=== PATIENT | female | born 1975 | race Caucasian/White ===

== ENCOUNTER 2021-01-27 11:19 | Outpatient (REF) | payer OTHER, SELFPAY ==
[2021-01-27 12:07] LABS: Influenza A PCR NEGATIVE (Negative); Influenza B PCR NEGATIVE (Negative); Resp Syncy Virus RNA Qual PCR NEGATIVE (Negative); SARS COV2 PCR INHOUSE NEGATIVE (Negative)
== END 2021-01-27 11:20 | disposition home or self-care (01) ==
LOC: HO.LNP 11:19
PROVIDERS: Visit Provider Physician Assistant
DX: Z20.822 Contact with and (suspected) exposure to COVID-19 (principal); B34.9 Viral infection, unspecified
CPT/HCPCS: 0241U

== ENCOUNTER 2021-07-06 20:14 | Emergency (ER) | payer OTHER, SELFPAY ==
--- NOTE | ~2021-07-06 | XR_ITS ---
EXAMINATION: XR CHEST CLINICAL INFORMATION: Productive cough. COMPARISON: Most recent chest radiograph dated 08/08/2018. TECHNIQUE: Frontal view of the chest was obtained. FINDINGS: The lungs are clear. The cardiomediastinal silhouette is normal in size. There is no pleural effusion or pneumothorax. No acute osseous abnormality. XR/XR chest 1V IMPRESSION: No acute cardiopulmonary findings.
--- NOTE | ~2021-07-06 | CT_ITS ---
EXAMINATION: CT HEAD WITHOUT CONTRAST CLINICAL INFORMATION: Altered mental status. COMPARISON: Most recent CT head dated 07/25/2017. TECHNIQUE: Contiguous axial imaging was performed from the skull base to vertex without intravenous administration of contrast. This CT examination was performed using dose optimization techniques as appropriate, variously including the following: *Automated exposure control *Adjustment of mA and/or kV according to patient size (this includes techniques or standardized protocols for targeted exams where dose is matched to indication/reason for exam; i.e. extremities or head) *Use of iterative reconstruction technique DLP: 1127 mGy-cm FINDINGS: There is no evidence of acute intracranial hemorrhage or territorial infarction. No abnormal mass effect or midline shift is seen. Green to white matter differentiation is well preserved. No extra-axial fluid collections are identified. The ventricles are normal in size. There is no abnormal attenuation within the brain parenchyma. The osseous structures and soft tissues are normal. The mastoid air cells and visualized portions of the paranasal sinuses are well aerated. CT/CT head/brain wo con IMPRESSION: No acute intracranial hemorrhage or mass effect.
[2021-07-06 20:21] VITALS: BP 117/45; PULSE 72; RESP 18; TEMP 36.9; O2SAT 93
[2021-07-06 20:30] VITALS: BP 104/55; BP 142/80; PULSE 106; PULSE 67; RESP 14; TEMP 36.9; O2SAT 94; BMI 27.3
--- NOTE | 2021-07-06 21:38 | ED.GENADULT ---
HPI - General Adult General Chief complaint: Psychiatric Symptoms <BLAIR Carmichael Last Filed: 07/07/21 04:07> Stated complaint: confused <BLAIR Carmichael Last Filed: 07/07/21 04:07> Time Seen by Provider: 07/06/21 21:38 <BLAIR Carmichael Last Filed: 07/07/21 04:07> Source: patient and EMS <BLAIR Carmichael Last Filed: 07/07/21 04:07> Mode of arrival: EMS <BLAIR Carmichael Last Filed: 07/07/21 04:07> Limitations: other (Patient poor historian, appears intoxicated or under the influence of drugs) <BLAIR Carmichael Last Filed: 07/07/21 04:07> History of Present Illness HPI narrative: This is a 46-year-old female with an unknown medical history presenting to the emergency department via ambulance for confusion, altered mental status. 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 Patient's story is completely different patient tells me that she is having nausea, vomiting, dizziness, headache and a cough x4 days worsening. She tells me that she has been drinking today she had 5 large glasses of wine at her job. She tells me she did not use any drugs. He tells me that she called 911 at her brother's house. Patient evidently confused or intoxicated. No evidence signs of trauma. Denies SI and HI. Denies visual auditory and tactile hallucinations. She denies chest pain, shortness of breath, abdominal pain, fevers, chills, diarrhea <BLAIR Carmichael Last Filed: 07/07/21 04:07> Onset (ago): day(s) (4) <BLAIR Carmichael Last Filed: 07/07/21 04:07> Relieving factors: none <BLAIR Carmichael Last Filed: 07/07/21 04:07> Exacerbating factors: none <BLAIR Carmichael Last Filed: 07/07/21 04:07> Related Data Home medications: Previous Rx's Medication Instructions Recorded nitrofurantoin 100 mg PO Q12H 5 Days #10 cap 07/07/21 monohydrate/macrocrystals 100 mg capsule (Macrobid) <BLAIR Carmichael Last Filed: 07/07/21 04:07> Allergies/adverse reactions: Allergies Allergy/AdvReac Type Severity Reaction Status Date / Time codeine [CODEINE] Allergy Severe ANAPHLAXIS Verified 01/27/21 10:00 Penicillins Allergy Severe HIVES Verified 01/27/21 10:00 penicillin V Allergy Unknown hives Verified 01/27/21 10:00 <BLAIR Carmichael Last Filed: 07/07/21 04:07> Review of Systems Review of Systems: Constitutional : No Weight loss, No Fever, No Chills, No Fatigue, No Malaise ENT/Mouth : No sore throat, No Rhinorrhea Eyes: No Eye Pain, No Swelling, No Redness Cardiovascular : No Chest Pain, No SOB, No Dyspnea on Exertion, No Orthopnea, No Edema, No Palpitations Respiratory : + Cough, No Sputum, No Wheezing Gastrointestinal : + Nausea, + Vomiting, No Diarrhea, No Constipation, No abdominal Pain, No Hematochezia, No Melena Genitourinary : No Dysuria, No Urinary Frequency, No Hematuria, Musculoskeletal : No joint pain, No Myalgias, No Joint Swelling Skin : No Skin Lesions, No rash Neuro : No Weakness, No Numbness, + Dizziness, + Headache Psych : No Anxiety/Panic, No Depression All other systems reviewed and are negative <BLAIR Carmichael - Last Filed: 07/07/21 04:07> Yes all other systems are reviewed and are negative <BLAIR Carmichael Last Filed: 07/07/21 04:07> FOR[facility]LY [facility] Past Medical History Attestation statement: The following information was validated with the patient. <BLAIR Carmichael Last Filed: 07/07/21 04:07> Source: old records reviewed and nursing notes reviewed <BLAIR Carmichael Last Filed: 07/07/21 04:07> Social History Social History: Social History Patient Tobacco Use Status: Current everyday Tobacco user Advance Directives: No Advance Directives Information Provided: No <BLAIR Carmichael Last Filed: 07/07/21 04:07> Physical Exam ED Vital Signs: Vital Signs - 24 hr 07/06/21 20:21 07/06/21 20:30 07/06/21 23:45 Temperature 98.5 F 98.5 F 100.6 F H Pulse Rate 72 67 66 Respiratory Rate 18 14 25 H Blood Pressure 117/45 L 104/55 L 112/44 L Pulse Oximetry 93 94 93 07/07/21 02:00 07/07/21 08:29 Temperature 99.9 F 99.1 F Pulse Rate 90 67 Respiratory Rate 20 22 H Blood Pressure 100/46 L 108/55 L Pulse Oximetry 95 92 BMI result Body Mass Index 27.3 Patient's vital signs stable <BLAIR Carmichael Last Filed: 07/07/21 04:07> Appearance: Alert.? Oriented to person and place not time or situation No acute distress.? Patient drowsy, dozing off during my examination Head: Normocephalic, atraumatic, no step-offs or deformities Eyes: Pupils equal, round and reactive to light.? Pinpoint pupils ENT: Pharynx normal.? Neck: Normal inspection.? Neck supple.? CVS: Normal heart rate and rhythm.? Pulses normal.? Respiratory: No respiratory distress.? Breath sounds normal.? Abdomen: Soft and nontender.? Skin: Skin warm and dry.? Normal skin color.? Normal skin turgor.? Extremities: No lower extremity edema.? No calf ttp. 5/5 strength to bilateral upper and lower extremities Neuro: Oriented to person and place not time or situation. No motor deficit.? No sensory deficit. CN 2-12 intact <BLAIR Carmichael Last Filed: 07/07/21 04:07> Course Reevaluation(s) Reevaluation #1: Patient noted to have a slight leukocytosis likely reactive from nausea and vomiting today. Patient is noted to have a slight normocytic anemia. Slightly lower than her baseline however not complaining of rectal bleeding, vomiting blood. No acute electrolyte abnormalities requiring intervention. Patient negative for flu and COVID Chest x-ray with no acute findings. Pending urine toxicology, UA and CT of the head and brain. <BLAIR Carmichael - Last Filed: 07/07/21 04:07> Time: 23:09 <BLAIR Carmichael - Last Filed: 07/07/21 04:07> Reevaluation #2: Urine positive for infection. Started patient on Macrobid. CT of the head and brain with no acute findings. Urine toxicology positive for fentanyl, cocaine and marijuana. Although patient was febrile and hypotensive I suspected secondary to UTI not sepsis. Patient's initial altered mental status likely secondary to polysubstance abuse. <BLAIR Carmichael - Last Filed: 07/07/21 04:07> Time: 04:00 <BLAIR Carmichael - Last Filed: 07/07/21 04:07> Reevaluation #3: At this time patient resting. Vital signs stable, patient afebrile. I will place patient in physician observation to allow more time to be evaluated by the care team for substance use disorder evaluation will also have her follow up with and for anxiety/ depression. Will continue to monitor. Sign-out given to . <BLAIR Carmichael - Last Filed: 07/07/21 04:07> Time: 04:03 <BLAIR Carmichael - Last Filed: 07/07/21 04:07> Medical Decision Making [facility] Narrative Medical decision making narrative: [id number] 46-year-old female presents for evaluation of altered mental status noted by coworkers who called 911. Patient reports nausea, vomiting, headache, dizziness, cough. Physical examination significant for female that is drowsy, dozing off during my examination with pinpoint pupils bilaterally equal and reactive. Patient able to follow commands however she is only alert to person and place not time or situation. No focal motor or sensory deficits. No focal neuro deficits. Based off patient history and physical examination likely ethanol abuse, and substance abuse. Unlikely ICH, posterior infarct. Unlikely pneumonia. Plan at this time labs, imaging, COVID, substance use disorder evaluation <BLAIR Carmichael Last Filed: 07/07/21 04:07> Medical Records Medical records reviewed: Yes I reviewed the patient's medical records. <BLAIR Carmichael - Last Filed: 07/07/21 04:07> Lab Data Lab results reviewed: Yes I reviewed the patient's lab results. <BLAIR Carmichael - Last Filed: 07/07/21 04:07> Result diagrams: : 07/06/21 21:59 07/06/21 21:59 <BLAIR Carmichael - Last Filed: 07/07/21 04:07> Labs: Lab Results 07/06/21 07/06/21 07/06/21 Range/Units 21:59 21:59 21:59 WBC 15.2 H (4.8-10.8) X10*3/uL RBC 4.05 L (4.20-5.50) X10*6/uL Hgb 9.6 L (12.0-16.0) g/dl Hct 33.0 L (37.0-47.0) % MCV 81.5 (80.0-98.0) fL MCH 23.7 L (27.0-33.0) pg MCHC 29.1 L (31.0-35.0) g/dl RDW 15.8 (11.0-16.0) % Plt Count 236 (160-400) X10*3/uL MPV 11.0 (9.4-12.3) fL Immature Gran % (Auto) 0.5 H (0.0-0.4) % Neut % (Auto) 86.4 H (45-73) % Lymph % (Auto) 6.5 L (20-40) % [place] % (Auto) 6.4 (2-11) % Eos % (Auto) 0.1 (0-4) % Baso % (Auto) 0.1 (0-2) % Lymph # (Auto) 1.0 L (1.2-4.9) X10*3/uL [place] # (Auto) 1.0 (0.1-1.2) X10*3/uL Eos # (Auto) 0.0 (0.0-0.4) X10*3/uL Baso # (Auto) 0.0 (0.0-0.2) X10*3/uL Abs Immat Gran (auto) 0.08 H (0.00-0.03) X10*3/uL Absolute Neuts (auto) 13.2 H (2.0-8.3) x10*3/uL Absolute Nucleated RBC 0.000 (0.0-0.012) X10*3/uL Nucleated RBC % (auto) 0.0 (0.0-0.2) /100WBC Sodium 133 L (135-145) mmol/L Potassium 4.9 (3.3-5.1) mmol/L Chloride 101 (96-108) mmol/L Carbon Dioxide 23 (22-29) mmol/L Anion Gap 14 (12-20) BUN 16 (9-16) mg/dL Creatinine 1.23 (0.5-1.4) mg/dL Estim Creat Clear Calc 61.3 Estimated GFR 47 Random Glucose 98 (60-115) mg/dL Calcium 9.0 (8.4-10.2) mg/dL Magnesium 2.2 (1.6-2.6) mg/dL Total Bilirubin 0.4 (0.0-1.0) mg/dL AST 28 (5-31) U/L ALT 19 (0-31) U/L Alkaline Phosphatase 112 (39-117) U/L Total Protein 7.6 (6.5-8.0) g/dL Albumin 4.0 (3.5-5.0) g/dL Urine Color Urine Appearance Urine pH (5.0-8.0) Ur Specific [place] (1.005-1.025) Urine Protein (NEG-TRACE) MG/DL Urine Glucose (UA) (NEG) MG/DL Urine Ketones (NEG) MG/DL Urine Blood (NEG) Urine Nitrite (NEG) Ur Leukocyte Esterase (NEG) Urine RBC (0) /HPF Urine WBC (0-4) /HPF Ur Squamous Epith Cells /LPF Urine Bacteria /LPF Salicylates < 5.0 L (15-30) mg/dL Urine Fentanyl Screen (Not Detect) Acetaminophen < 1 (<30) mcg/mL Ur Barbiturates Screen (Not Detect) Ur Phencyclidine Scrn (Not Detect) Ur Amphetamines Screen (Not Detect) U Benzodiazepines Scrn (Not Detect) Urine Cocaine Screen (Not Detect) U Marijuana (THC) Screen (Not Detect) Ethyl Alcohol mg/dL COVID-19 (CALVIN) (Negative) COVID-19 Clin Com Influenza Type A (CARO) Negative (Negative) Influenza Type B (CARO) Negative (Negative) Influenza A & B Note See Note 07/06/21 07/06/21 07/07/21 Range/Units 21:59 21:59 02:42 WBC (4.8-10.8) X10*3/uL RBC (4.20-5.50) X10*6/uL Hgb (12.0-16.0) g/dl Hct (37.0-47.0) % MCV (80.0-98.0) fL MCH (27.0-33.0) pg MCHC (31.0-35.0) g/dl RDW (11.0-16.0) % Plt Count (160-400) X10*3/uL MPV (9.4-12.3) fL Immature Gran % (Auto) (0.0-0.4) % Neut % (Auto) (45-73) % Lymph % (Auto) (20-40) % [place] % (Auto) (2-11) % Eos % (Auto) (0-4) % Baso % (Auto) (0-2) % Lymph # (Auto) (1.2-4.9) X10*3/uL [place] # (Auto) (0.1-1.2) X10*3/uL Eos # (Auto) (0.0-0.4) X10*3/uL Baso # (Auto) (0.0-0.2) X10*3/uL Abs Immat Gran (auto) (0.00-0.03) X10*3/uL Absolute Neuts (auto) (2.0-8.3) x10*3/uL Absolute Nucleated RBC (0.0-0.012) X10*3/uL Nucleated RBC % (auto) (0.0-0.2) /100WBC Sodium (135-145) mmol/L Potassium (3.3-5.1) mmol/L Chloride (96-108) mmol/L Carbon Dioxide (22-29) mmol/L Anion Gap (12-20) BUN (9-16) mg/dL Creatinine (0.5-1.4) mg/dL Estim Creat Clear Calc Estimated GFR Random Glucose (60-115) mg/dL Calcium (8.4-10.2) mg/dL Magnesium (1.6-2.6) mg/dL Total Bilirubin (0.0-1.0) mg/dL AST (5-31) U/L ALT (0-31) U/L Alkaline Phosphatase (39-117) U/L Total Protein (6.5-8.0) g/dL Albumin (3.5-5.0) g/dL Urine Color YELLOW Urine Appearance HAZY Urine pH 5.5 (5.0-8.0) Ur Specific [place] >= 1.030 H (1.005-1.025) Urine Protein TRACE (NEG-TRACE) MG/DL Urine Glucose (UA) NEG (NEG) MG/DL Urine Ketones 15 (NEG) MG/DL Urine Blood 1+ H (NEG) Urine Nitrite POS H (NEG) Ur Leukocyte Esterase 1+ H (NEG) Urine RBC 0 (0) /HPF Urine WBC 50-75 H (0-4) /HPF Ur Squamous Epith Cells 1+ /LPF Urine Bacteria 4+ /LPF Salicylates (15-30) mg/dL Urine Fentanyl Screen (Not Detect) Acetaminophen (<30) mcg/mL Ur Barbiturates Screen (Not Detect) Ur Phencyclidine Scrn (Not Detect) Ur Amphetamines Screen (Not Detect) U Benzodiazepines Scrn (Not Detect) Urine Cocaine Screen (Not Detect) U Marijuana (THC) Screen (Not Detect) Ethyl Alcohol < 10 mg/dL COVID-19 (CALVIN) Negative (Negative) COVID-19 Clin Com See Note Influenza Type A (CARO) (Negative) Influenza Type B (CARO) (Negative) Influenza A & B Note 07/07/21 Range/Units 02:42 WBC (4.8-10.8) X10*3/uL RBC (4.20-5.50) X10*6/uL Hgb (12.0-16.0) g/dl Hct (37.0-47.0) % MCV (80.0-98.0) fL MCH (27.0-33.0) pg MCHC (31.0-35.0) g/dl RDW (11.0-16.0) % Plt Count (160-400) X10*3/uL MPV (9.4-12.3) fL Immature Gran % (Auto) (0.0-0.4) % Neut % (Auto) (45-73) % Lymph % (Auto) (20-40) % [place] % (Auto) (2-11) % Eos % (Auto) (0-4) % Baso % (Auto) (0-2) % Lymph # (Auto) (1.2-4.9) X10*3/uL [place] # (Auto) (0.1-1.2) X10*3/uL Eos # (Auto) (0.0-0.4) X10*3/uL Baso # (Auto) (0.0-0.2) X10*3/uL Abs Immat Gran (auto) (0.00-0.03) X10*3/uL Absolute Neuts (auto) (2.0-8.3) x10*3/uL Absolute Nucleated RBC (0.0-0.012) X10*3/uL Nucleated RBC % (auto) (0.0-0.2) /100WBC Sodium (135-145) mmol/L Potassium (3.3-5.1) mmol/L Chloride (96-108) mmol/L Carbon Dioxide (22-29) mmol/L Anion Gap (12-20) BUN (9-16) mg/dL Creatinine (0.5-1.4) mg/dL Estim Creat Clear Calc Estimated GFR Random Glucose (60-115) mg/dL Calcium (8.4-10.2) mg/dL Magnesium (1.6-2.6) mg/dL Total Bilirubin (0.0-1.0) mg/dL AST (5-31) U/L ALT (0-31) U/L Alkaline Phosphatase (39-117) U/L Total Protein (6.5-8.0) g/dL Albumin (3.5-5.0) g/dL Urine Color Urine Appearance Urine pH (5.0-8.0) Ur Specific [place] (1.005-1.025) Urine Protein (NEG-TRACE) MG/DL Urine Glucose (UA) (NEG) MG/DL Urine Ketones (NEG) MG/DL Urine Blood (NEG) Urine Nitrite (NEG) Ur Leukocyte Esterase (NEG) Urine RBC (0) /HPF Urine WBC (0-4) /HPF Ur Squamous Epith Cells /LPF Urine Bacteria /LPF Salicylates (15-30) mg/dL Urine Fentanyl Screen POSITIVE H (Not Detect) Acetaminophen (<30) mcg/mL Ur Barbiturates Screen Not Detected (Not Detect) Ur Phencyclidine Scrn Not Detected (Not Detect) Ur Amphetamines Screen Not Detected (Not Detect) U Benzodiazepines Scrn Not Detected (Not Detect) Urine Cocaine Screen POSITIVE H (Not Detect) U Marijuana (THC) Screen POSITIVE H (Not Detect) Ethyl Alcohol mg/dL COVID-19 (CALVIN) (Negative) COVID-19 Clin Com Influenza Type A (CARO) (Negative) Influenza Type B (CARO) (Negative) Influenza A & B Note <BLAIR Carmichael Last Filed: 07/07/21 04:07> Critical Care Time Critical Care Time Critical Care Time: No <BLAIR Carmichael Last Filed: 07/07/21 04:07> Discharge Plan Discharge Clinical Impression: UTI (urinary tract infection), Nausea & vomiting, Dizziness, Polysubstance abuse <BLAIR Carmichael Last Filed: 07/07/21 04:07> Patient Disposition: Home, Self-Care <BLAIR Carmichael Last Filed: 07/07/21 04:07> Instructions: Urinary Tract Infection in Women (ED), Acute Nausea and Vomiting (ED), Dizziness (ED) <BLAIR Carmichael Last Filed: 07/07/21 04:07> Additional Instructions: Take your medications as prescribed. If you were prescribed antibiotics today, it is important that you take your medication to their entirety, do not skip any doses, do not finish them early. Follow-up with your primary care provider this week. Return to the emergency department with new or worsening symptoms. Such as fevers, chills, chest pain, shortness of breath, nausea, vomiting, dizziness, headache, vision changes, lethargy In case of emergency call 911 your prescriptions were sent to [facility] on [facility] <BLAIR Carmichael Last Filed: 07/07/21 04:07> Prescriptions: New nitrofurantoin monohyd/m-cryst [Macrobid] 100 mg capsule 100 mg PO Q12H 5 Days Qty: 10 0RF Rx Instructions: must administer with a meal/food <BLAIR Carmichael - Last Filed: 07/07/21 04:07> Referrals: [facility]Provider Group[facility] [Primary Care Provider] - 2 days <BLAIR Carmichael - Last Filed: 07/07/21 04:07>
[2021-07-06 22:06] LABS: MANUAL DIFF FLAG NO
[2021-07-06 22:15] LABS: Basophils Percent Auto 0.1 % (0-2); Eosinophils Percent Auto 0.1 % (0-4); Hemoglobin 9.6 g/dl (12.0-16.0); Imm Gran Abs Auto 0.08 X10*3/uL (0.00-0.03); Imm Gran Pct Auto 0.5 % (0.0-0.4); Lymphocytes Percent Auto 6.5 % (20-40); Mean Corpuscular HGB Conc 29.1 g/dl (31.0-35.0); Mean Corpuscular Hemoglobin 23.7 pg (27.0-33.0); Mean Corpuscular Volume 81.5 fL (80.0-98.0); Monocytes Percent Auto 6.4 % (2-11); Neutrophils Absolute Auto 13.2 x10*3/uL (2.0-8.3); Neutrophils Percent Auto 86.4 % (45-73); Platelet Count 236 X10*3/uL (160-400); Red Blood Count 4.05 X10*6/uL (4.20-5.50); Red Cell Distribution Width 15.8 % (11.0-16.0); White Blood Count 15.2 X10*3/uL (4.8-10.8)
[2021-07-06 22:17] LABS: Ethanol < 10 mg/dL
[2021-07-06 22:26] LABS: COVID-19 Test Negative (Negative); IDNOW Serial# 55D5AD1C; Influenza A Negative (Negative); Influenza B2 Negative (Negative)
[2021-07-06 22:34] LABS: Alanine Aminotransferase 19 U/L (0-31); Alkaline Phosphatase 112 U/L (39-117); Anion Gap 14 (12-20); Aspartate Amino Transferase 28 U/L (5-31); Bilirubin Total 0.4 mg/dL (0.0-1.0); Blood Urea Nitrogen 16 mg/dL (9-16); Carbon Dioxide 23 mmol/L (22-29); Chloride 101 mmol/L (96-108); Creatinine Clr Calc Pharmacy 61.3; Estimated Glomerular Filt Rate 47; Glucose Random 98 mg/dL (60-115); Magnesium 2.2 mg/dL (1.6-2.6); Potassium 4.9 mmol/L (3.3-5.1); Sodium 133 mmol/L (135-145); Total Protein 7.6 g/dL (6.5-8.0)
[2021-07-06 23:15] LABS: Acetaminophen LAB < 1 mcg/mL (<30); Salicylate < 5.0 mg/dL (15-30)
[2021-07-06] MEDS: 0.9 % Sodium Chloride 1,000 ML 999 ML IV (23:35)
[2021-07-06 23:45] VITALS: BP 112/44; PULSE 66; RESP 25; TEMP 38.1; O2SAT 93
[2021-07-07] MEDS: 0.9 % Sodium Chloride 1,000 ML 999 ML IV (01:47)
[2021-07-07 02:00] VITALS: BP 100/46; PULSE 90; RESP 20; TEMP 37.7; O2SAT 95
--- NOTE | 2021-07-07 02:15 | HO.SUDE ---
CARE team met with pt to offer substance use disorder evaluation. Pt reported that she drank one nip of alcohol prior to arriving to the ED and denied all other substance use. She was unable to recall how or why she came. 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 She had not yet provided a urine sample at the time of SUDE to confirm or deny substance use, and due to pt starting to have a fever, her symptoms will be explored as having a medical cause.
[2021-07-07 02:50] LABS: Appearance Urine HAZY; Color Urine YELLOW; Glucose Urine UA NEG (NEG); Leukocyte Esterase Urine 1+ (NEG); Nitrite Urine POS (NEG); PH 5.5 (5.0-8.0); Specific Gravity - Urine >= 1.030 (1.005-1.025); UACC Culture Trigger YES; Urine Blood 1+ (NEG); Urine Ketones 15 MG/DL (NEG); Urine Protein TRACE MG/DL (NEG-TRACE)
[2021-07-07 02:57] LABS: Bacteria Urine 4+ /LPF; RBC Urine 0 /HPF (0); Squamous Epithelial Cell Urine 1+ /LPF; WBC Urine 50-75 /HPF (0-4)
[2021-07-07 03:11] LABS: Fentanyl, urine POSITIVE (Not Detect)
[2021-07-07 03:18] LABS: Amphetamine Screen Urine Not Detected (Not Detect); Barbiturates, Urine Not Detected (Not Detect); Benzodiazepines Screen Urine Not Detected (Not Detect); Cannabinoid Screen Urine POSITIVE (Not Detect); Cocaine Screen Urine POSITIVE (Not Detect); Phencyclidine Screen Urine Not Detected (Not Detect)
[2021-07-07 08:29] VITALS: BP 108/55; PULSE 67; RESP 22; TEMP 37.3; O2SAT 92
[2021-07-07] MEDS: Nitrofurantoin Monohyd/M-Cryst 100 MG CAPSULE PO (09:14)
--- NOTE | 2021-07-07 09:58 | MHC.RECOVSUP ---
Recovery Support note: Patient is a 46 year old Singaporean speaking female who presented to [facility] ED after appearing confused at her work while picking up a check. Patient reports she is feeling better this morning and overall doing well. Patient reports she doesn't drink often, stating that she drinks once or twice a month. Patient reports yesterday she drank more than usual however was unable to specify why. Patient reports no life stressors or special circumstances. Patient reports she has never used opiates or cocaine and she denies buying pills off the street. Patient reports she uses marijuana once a month and that she gets it from a friend. When this health underwriter explained that there was fentanyl and cocaine in her system, patient expressed shock and concern. Patient continues to deny substance use. Patient reports she remembers the events leading up to her hospital visit and denies periods of blacking out. Patient reports she has no idea how those substances ended up in her system and reiterates that she doesn't use those substances and that she doesn't drink or smoke marijuana often. Discussed supports with patient. Patient reports she has been to therapy in the past and has found it helpful. Patient expressed interest in receiving resources on therapy agencies. This health underwriter unable to make therapy referral due to patient not knowing her phone number. Discussed case with patient's ED provider.
[2021-07-07 14:41] LABS: Opiate Screen Urine POSITIVE (Not Detect)
== END 2021-07-07 11:04 | disposition home or self-care (01) ==
PROVIDERS: Physician Assistant; Emergency Provider Emergency Medicine
DX: N39.0 Urinary tract infection, site not specified (principal); R11.2 Nausea with vomiting, unspecified; R42 Dizziness and giddiness; F19.10 Other psychoactive substance abuse, uncomplicated; D64.9 Anemia, unspecified; Z20.822 Contact with and (suspected) exposure to COVID-19
CPT/HCPCS: 70450; 71045; 80053; 80143; 80179; 80307; 81001; 82077; 83735; 85025; 87086; 87088; 87186; 87502; 87635; 96360; 99284

== ENCOUNTER 2021-07-11 00:07 | Inpatient (IN) | payer OTHER, MEDICAID, SELFPAY ==
[2021-07-11] VITALS (11 sets, daily range): BP systolic 126–167; BP diastolic 56–108; PULSE 57–75; RESP 14–22; TEMP 36.3–37.2; O2SAT 93–99; BMI 28.3
--- NOTE | ~2021-07-11 | XR_ITS ---
EXAMINATION: XR ABDOMEN KUB CLINICAL INDICATION: Clearance for MRI COMPARISON: CT of 03/26/2019 TECHNIQUE: AP view of the abdomen. FINDINGS: The bowel gas pattern is normal. A 19 mm calcification in the left upper quadrant reflects a left renal upper pole calculus, unchanged. There are surgical jenifer in the epigastrium, unchanged since 2018. No other radiopaque objects are detected. The bowel gas pattern is normal. Incidental note is made of spina bifida occulta at the L5 level. XR/XR abdomen 1V IMPRESSION: 1. No radiopaque foreign body. The patient is cleared for MRI. 2. Left renal upper pole 19 mm calculus, as on CT of 03/26/2017.
--- NOTE | ~2021-07-11 | MR_ITS ---
MRI OF THE BRAIN WITHOUT IV CONTRAST INDICATION: Encephalopathy. COMPARISON: CT head 07/11/2021. TECHNIQUE: Multiplanar multisequence MR imaging of the brain was obtained without IV contrast. FINDINGS: Expansile T2 signal changes involving the globus pallidus bilaterally associated with intermediate reduced diffusivity. There is also restricted diffusion within the hippocampi bilaterally and involving portions of the right and left caudate nucleus as well as FLAIR changes within the cerebellar white matter bilaterally. Mild background nonspecific T2 signal changes. Chronic lacunar infarct within the left thalamus. There is no hydrocephalus, extra-axial surface collection, or herniation. The major flow voids at the skull base are preserved. There is no intracranial hemorrhage on the gradient recalled echo acquisition. The midline structures are normal. The cerebellar tonsils are normally positioned. The cerebellum and brainstem are normal. The craniocervical junction is normal. Osseous marrow signal intensity is homogenous. The visualized soft tissues are unremarkable. MR/MR head/brain wo con IMPRESSION: Expansile T2 signal changes involving the globus pallidus bilaterally associated with intermediate reduced diffusivity. There is also restricted diffusion within the hippocampi bilaterally and involving portions of the right and left caudate nucleus as well as bandlike T2 signal changes involving the cerebellar white matter bilaterally. Findings could be toxic/metabolic in etiology and should be correlated for any recent drug exposures, particularly fentanyl/opioid exposure given bilateral hippocampal involvement. Carbon monoxide toxicity can present with a subset of these findings. Infectious etiologies should be considered in the appropriate clinical context. Short-term follow-up inclusive of post contrast imaging would be helpful in further assessment.
--- NOTE | ~2021-07-11 | CT_ITS ---
EXAMINATION: CT HEAD WITHOUT CONTRAST CLINICAL INFORMATION: Change in mental status, rule out bleed, stroke COMPARISON: 07/06/2021 TECHNIQUE: Contiguous axial imaging was performed from the skull base to vertex without intravenous administration of contrast. This CT examination was performed using dose optimization techniques as appropriate, variously including the following: *Automated exposure control *Adjustment of mA and/or kV according to patient size (this includes techniques or standardized protocols for targeted exams where dose is matched to indication/reason for exam; i.e. extremities or head) *Use of iterative reconstruction technique DLP: 670 mGy-cm FINDINGS: There is no evidence of acute intracranial hemorrhage or territorial infarction. No abnormal mass effect or midline shift is seen. Green to white matter differentiation is well preserved. No extra-axial fluid collections are identified. The ventricles are normal in size. There are symmetric regions of hypoattenuation in the bilateral basal ganglia, specifically at the globus pallidus; this appears slightly more prominent than on 07/06/2021. The osseous structures and soft tissues are normal. The mastoid air cells and visualized portions of the paranasal sinuses are well aerated. CT/CT head/brain wo con IMPRESSION: Symmetric regions of of hypoattenuation in the globus pallidus, which appears slightly more prominent than on 07/06/2021. This appearance can be seen with carbon monoxide poisoning and may be further evaluated with MRI. This was discussed with Dr. Jaeger on 07/11/2021 3:22 AM.
--- NOTE | ~2021-07-11 | XR_ITS ---
EXAMINATION: XR CHEST CLINICAL INFORMATION: TB screening COMPARISON: Previous chest x-ray most recent July 2021 TECHNIQUE: Frontal view of the chest was obtained. FINDINGS: No significant abnormality is noted involving the heart, lungs, mediastinum, bony thorax or soft tissues. XR/XR chest 1V IMPRESSION: Unremarkable examination.
--- NOTE | ~2021-07-11 | XR_ITS ---
EXAMINATION: XR CHEST CLINICAL INFORMATION: Cough, wheeze, rule out pneumonia COMPARISON: 07/06/2021 TECHNIQUE: 2 views of the chest were obtained. FINDINGS: The lungs are clear with no focal consolidation. No evidence of pneumothorax, pulmonary edema, or pleural effusions. The cardiomediastinal silhouette is unremarkable. No acute osseous findings. XR/XR chest 2V IMPRESSION: No acute cardiopulmonary findings.
--- NOTE | 2021-07-11 00:29 | ECG_ITS ---
Test Reason : AMS Blood Pressure : / mmHG Vent. Rate : 056 BPM Atrial Rate : 056 BPM P-R Int : 138 ms QRS Dur : 082 ms QT Int : 442 ms P-R-T Axes : 063 002 022 degrees QTc Int : 426 ms Sinus bradycardia Possible Inferior infarct , age undetermined Abnormal ECG When compared with ECG of 25-JUL-2017 12:19, No significant change was found Referred By: Arturo Morel Electronically Signed By:KIKO FISHER MD
--- NOTE | 2021-07-11 00:31 | ED.AMS ---
HPI - Altered Mental Status General Chief Complaint: Altered Mental Status Stated Complaint: AMS Time Seen by Provider: 07/11/21 00:15 Source: patient and RN notes reviewed Mode of arrival: EMS Limitations: altered mental status (Patient is confused) History of Present Illness HPI narrative: 46-year-old female who was brought to emergency department by ambulance for evaluation confusion/altered mental status. According to the nursing notes, the police department was initially on the scene after the patient called 911 while she was trying to unlock her phone twice tonight. The patient appeared to be confused and altered therefore she was brought to the emergency department for evaluation. The patient did appear to be confused when I was interviewing her. She states that she could not remember how old she was not could not state her age. She states that she felt dizzy as if she was going to pass out when she stood up and walked from her living room to her kitchen. She is not certain when this occurred but she believes that happened around 20:00 hours. She is uncertain if she lost consciousness, fell or hit her head. She did not remember that she was here in the emergency department recently on 07/06/2021. In reviewing the patient's record she was seen here in the emergency department on 07/06/2021 for altered mental status. The patient's urine tox screen was positive for cocaine, marijuana and fentanyl but she denies using any illicit substances[place] [id number]. Her urinalysis revealed 1+ blood, positive nitrates 1+ leukocyte esterase with urine microscopic revealing 50-75 WBCs, 1+ squamous cells and 4+ bacteria. She was prescribed nitrofurantoin but never picked up this medication. Her urine culture grew E coli greater than 100,000 colony-forming units which was sensitive to ceftriaxone, gentamicin, levofloxacin, nitrofurantoin Related Data Previous Rx's Medication Instructions Recorded nitrofurantoin 100 mg PO Q12H 5 Days #10 cap 07/07/21 monohydrate/macrocrystals 100 mg capsule (Macrobid) Allergies Allergy/AdvReac Type Severity Reaction Status Date / Time codeine [CODEINE] Allergy Severe ANAPHLAXIS Verified 01/27/21 10:00 Penicillins Allergy Severe HIVES Verified 01/27/21 10:00 penicillin V Allergy Unknown hives Verified 01/27/21 10:00 Review of Systems Review of Systems: Yes Unobtainable due to mental status (Patient is confused and is unreliable) [facility] Social History Social History Patient Tobacco Use Status: Current everyday Tobacco user Advance Directives: No Physical Exam ED Vital Signs: Vital Signs - 24 hr 07/11/21 00:23 07/11/21 00:29 Temperature 98.9 F Pulse Rate 75 60 Respiratory Rate 18 14 Blood Pressure 133/108 H Pulse Oximetry 96 BMI result Body Mass Index 28.3 Const Other: Awake, alert, female patient, she does appear to be confused, she is oriented to person but has difficulty recounting details as to why she is here in the emergency department and does not remember her recent ER visit on 07/06/2021. General: no acute distress Orientation/consciousness: oriented to person and oriented to place HENOR Other: The patient does have a small healing laceration to the right nasal bridge, there is no tenderness with palpation of her nasal bridge Head: Yes normal to inspection and Yes normocephalic Ears: external ears normal Face and sinus: Yes normal facial exam Mouth: Normal oral and palatal mucosa present Throat: Yes posterior oropharynx normal Eyes General: appearance normal, both eyes and all related structures Pupils: Equal, round and reactive pupils present Neck Neck: Yes normal visual inspection, Yes no lymphadenopathy, Yes trachea midline and Yes supple Chest Chest palpation & inspection: normal inspection of the chest and normal palpation of entire chest wall Resp Effort & Inspection: normal respiratory effort and able to speak in complete sentences Auscultation: rhonchi (Diffuse) and wheezes (Diffuse) Cardio Rate: regular rate Rhythm: regular rhythm Heart sounds: S1 normal heart sound present, S2 normal heart sound present and no murmurs GI Inspection: Yes normal to inspection Palpation (GI): Soft to palpation, nontender and no guarding Auscultation: normal bowel sounds General: Yes no CVA tenderness Back/Spine/Pelvis Back: no CVA tenderness Skin General skin exam: no rashes or lesions noted Neuro General: oriented to person and oriented to place Cranial nerves: Yes CN's II-XII intact bilaterally and Yes Equal, round and reactive pupils present Cognition (Neuro): abnormal cognition (Appears confused) Motor exam (neuro): 5/5 motor strength present throughout Extrem General: Yes normal to inspection Psych Appearance: grossly normal Speech and movement: Normal speech and movement present Affect: normal affect Attitude: cooperative Course Course Course Narrative: 46-year-old female called 911 twice this evening when she was trying to unlock her phone. The 1st responders felt the patient was confused therefore the patient was transported to the emergency department. Here in the emergency department the patient is confused and has difficulty recounting details as to why she is here in the emergency department and also cannot recount any details of her recent emergency department visit on 07/06/2021. At that visit, the patient's urine drug screen was positive for cocaine, marijuana and fentanyl. She also had a urinary tract infection in grew E coli out of her urine, she did not get her antibiotics filled. Vital signs revealed an elevated blood pressure of 133/108 otherwise were unremarkable. Exam revealed wheezing and rhonchi in her lung exam, small laceration to her right nares and otherwise unremarkable. I did order a CBC, CMP, lactate, urinalysis, urine drug screen, COVID-19, influenza, blood cultures x2. It is unclear if the patient did fall this evening therefore I will get a CT scan the patient's head (she did have a negative CT scan on 07/06/2021). I did order ceftriaxone 1 g IV to treat her E coli urinary tract infection. 0154: Laboratory evaluation: CBC was normal. CO2 was slightly low at 20. Lactate was 0.7. Troponin was below detectable limits. ETOH was below detectable limits. Twelve EKG was unremarkable. COVID-19 and influenza tests were negative. The CT scan of the patient's head and chest x-ray are pending. Also, urine tox screen and urinalysis is pending collection of her urine. Given her confusion her E coli urine infection from the previous urine culture on 07/07/2021, I believe the patient should be admitted for IV antibiotics. I also ordered Zithromax g IV for possible lung infection given her wheezing. I will discuss admission with the covering hospitalist. Also, the patient's care was turned over to my colleague, Dr. Jaeger since the patient's CT scan of her head and chest x-ray are pending. MDM - Altered Mental Status Lab Data Result diagrams: 07/11/21 00:48 07/11/21 00:47 Labs: Lab Results 07/11/21 07/11/21 07/11/21 Range/Units 00:47 00:47 00:47 WBC (4.8-10.8) X10*3/uL RBC (4.20-5.50) X10*6/uL Hgb (12.0-16.0) g/dl Hct (37.0-47.0) % MCV (80.0-98.0) fL MCH (27.0-33.0) pg MCHC (31.0-35.0) g/dl RDW (11.0-16.0) % Plt Count (160-400) X10*3/uL MPV (9.4-12.3) fL Immature Gran % (Auto) (0.0-0.4) % Neut % (Auto) (45-73) % Lymph % (Auto) (20-40) % [place] % (Auto) (2-11) % Eos % (Auto) (0-4) % Baso % (Auto) (0-2) % Lymph # (Auto) (1.2-4.9) X10*3/uL [place] # (Auto) (0.1-1.2) X10*3/uL Eos # (Auto) (0.0-0.4) X10*3/uL Baso # (Auto) (0.0-0.2) X10*3/uL Abs Immat Gran (auto) (0.00-0.03) X10*3/uL Absolute Neuts (auto) (2.0-8.3) x10*3/uL Absolute Nucleated RBC (0.0-0.012) X10*3/uL Nucleated RBC % (auto) (0.0-0.2) /100WBC Sodium 138 (135-145) mmol/L Potassium 4.0 (3.3-5.1) mmol/L Chloride 105 (96-108) mmol/L Carbon Dioxide 20 L (22-29) mmol/L Anion Gap 17 (12-20) BUN 11 (9-16) mg/dL Creatinine 0.88 (0.5-1.4) mg/dL Estim Creat Clear Calc 87.0 Estimated GFR > 60 Random Glucose 81 (60-115) mg/dL Lactic Acid 0.7 (0.5-2.0) mmol/L Calcium 9.5 (8.4-10.2) mg/dL Total Bilirubin 0.4 (0.0-1.0) mg/dL AST 21 (5-31) U/L ALT 12 (0-31) U/L Alkaline Phosphatase 67 D (39-117) U/L Troponin I High Sens (<3.5-17.0) ng/L Total Protein 7.5 (6.5-8.0) g/dL Albumin 3.8 (3.5-5.0) g/dL Lipase 47 (8-78) U/L Ethyl Alcohol mg/dL COVID-19 (CALVIN) Negative (Negative) COVID-19 Clin Com See Note Influenza Type A (CARO) (Negative) Influenza Type B (CARO) (Negative) Influenza A & B Note 07/11/21 07/11/21 07/11/21 Range/Units 00:47 00:48 00:48 WBC 7.9 (4.8-10.8) X10*3/uL RBC 4.15 L (4.20-5.50) X10*6/uL Hgb 9.9 L (12.0-16.0) g/dl Hct 32.3 L (37.0-47.0) % MCV 77.8 L (80.0-98.0) fL MCH 23.9 L (27.0-33.0) pg MCHC 30.7 L (31.0-35.0) g/dl RDW 15.5 (11.0-16.0) % Plt Count 276 (160-400) X10*3/uL MPV 10.1 (9.4-12.3) fL Immature Gran % (Auto) 0.4 (0.0-0.4) % Neut % (Auto) 67.8 (45-73) % Lymph % (Auto) 22.1 (20-40) % [place] % (Auto) 7.6 (2-11) % Eos % (Auto) 1.8 (0-4) % Baso % (Auto) 0.3 (0-2) % Lymph # (Auto) 1.7 (1.2-4.9) X10*3/uL [place] # (Auto) 0.6 (0.1-1.2) X10*3/uL Eos # (Auto) 0.1 (0.0-0.4) X10*3/uL Baso # (Auto) 0.0 (0.0-0.2) X10*3/uL Abs Immat Gran (auto) 0.03 (0.00-0.03) X10*3/uL Absolute Neuts (auto) 5.3 (2.0-8.3) x10*3/uL Absolute Nucleated RBC 0.000 (0.0-0.012) X10*3/uL Nucleated RBC % (auto) 0.0 (0.0-0.2) /100WBC Sodium (135-145) mmol/L Potassium (3.3-5.1) mmol/L Chloride (96-108) mmol/L Carbon Dioxide (22-29) mmol/L Anion Gap (12-20) BUN (9-16) mg/dL Creatinine (0.5-1.4) mg/dL Estim Creat Clear Calc Estimated GFR Random Glucose (60-115) mg/dL Lactic Acid (0.5-2.0) mmol/L Calcium (8.4-10.2) mg/dL Total Bilirubin (0.0-1.0) mg/dL AST (5-31) U/L ALT (0-31) U/L Alkaline Phosphatase (39-117) U/L Troponin I High Sens < 3.5 (<3.5-17.0) ng/L Total Protein (6.5-8.0) g/dL Albumin (3.5-5.0) g/dL Lipase (8-78) U/L Ethyl Alcohol mg/dL COVID-19 (CALVIN) (Negative) COVID-19 Clin Com Influenza Type A (CARO) Negative (Negative) Influenza Type B (CARO) Negative (Negative) Influenza A & B Note See Note 07/11/21 Range/Units 00:48 WBC (4.8-10.8) X10*3/uL RBC (4.20-5.50) X10*6/uL Hgb (12.0-16.0) g/dl Hct (37.0-47.0) % MCV (80.0-98.0) fL MCH (27.0-33.0) pg MCHC (31.0-35.0) g/dl RDW (11.0-16.0) % Plt Count (160-400) X10*3/uL MPV (9.4-12.3) fL Immature Gran % (Auto) (0.0-0.4) % Neut % (Auto) (45-73) % Lymph % (Auto) (20-40) % [place] % (Auto) (2-11) % Eos % (Auto) (0-4) % Baso % (Auto) (0-2) % Lymph # (Auto) (1.2-4.9) X10*3/uL [place] # (Auto) (0.1-1.2) X10*3/uL Eos # (Auto) (0.0-0.4) X10*3/uL Baso # (Auto) (0.0-0.2) X10*3/uL Abs Immat Gran (auto) (0.00-0.03) X10*3/uL Absolute Neuts (auto) (2.0-8.3) x10*3/uL Absolute Nucleated RBC (0.0-0.012) X10*3/uL Nucleated RBC % (auto) (0.0-0.2) /100WBC Sodium (135-145) mmol/L Potassium (3.3-5.1) mmol/L Chloride (96-108) mmol/L Carbon Dioxide (22-29) mmol/L Anion Gap (12-20) BUN (9-16) mg/dL Creatinine (0.5-1.4) mg/dL Estim Creat Clear Calc Estimated GFR Random Glucose (60-115) mg/dL Lactic Acid (0.5-2.0) mmol/L Calcium (8.4-10.2) mg/dL Total Bilirubin (0.0-1.0) mg/dL AST (5-31) U/L ALT (0-31) U/L Alkaline Phosphatase (39-117) U/L Troponin I High Sens (<3.5-17.0) ng/L Total Protein (6.5-8.0) g/dL Albumin (3.5-5.0) g/dL Lipase (8-78) U/L Ethyl Alcohol < 10 mg/dL COVID-19 (CALVIN) (Negative) COVID-19 Clin Com Influenza Type A (CARO) (Negative) Influenza Type B (CARO) (Negative) Influenza A & B Note Discharge Plan Discharge Clinical Impression: Altered mental status, E. coli UTI (urinary tract infection), Polysubstance abuse Patient Disposition: Still a Patient Prescriptions: No Action nitrofurantoin monohyd/m-cryst [Macrobid] 100 mg capsule 100 mg PO Q12H 5 Days Qty: 10 0RF Rx Instructions: must administer with a meal/food
[2021-07-11 00:53] LABS: MANUAL DIFF FLAG NO
[2021-07-11 00:55] LABS: Basophils Percent Auto 0.3 % (0-2); Eosinophils Absolute Auto 0.1 X10*3/uL (0.0-0.4); Eosinophils Percent Auto 1.8 % (0-4); Hematocrit 32.3 % (37.0-47.0); Hemoglobin 9.9 g/dl (12.0-16.0); Imm Gran Abs Auto 0.03 X10*3/uL (0.00-0.03); Imm Gran Pct Auto 0.4 % (0.0-0.4); Lymphocytes Absolute Auto 1.7 X10*3/uL (1.2-4.9); Lymphocytes Percent Auto 22.1 % (20-40); Mean Corpuscular HGB Conc 30.7 g/dl (31.0-35.0); Mean Corpuscular Hemoglobin 23.9 pg (27.0-33.0); Mean Corpuscular Volume 77.8 fL (80.0-98.0); Mean Platelet Volume 10.1 fL (9.4-12.3); Monocytes Absolute Auto 0.6 X10*3/uL (0.1-1.2); Monocytes Percent Auto 7.6 % (2-11); Neutrophils Absolute Auto 5.3 x10*3/uL (2.0-8.3); Neutrophils Percent Auto 67.8 % (45-73); Platelet Count 276 X10*3/uL (160-400); Red Blood Count 4.15 X10*6/uL (4.20-5.50); Red Cell Distribution Width 15.5 % (11.0-16.0); White Blood Count 7.9 X10*3/uL (4.8-10.8)
[2021-07-11] MEDS: cefTRIAXone sodium 1 GM in 0.9 % Sodium Chloride 50 ML IV (01:03)
[2021-07-11] MEDS: 0.9 % Sodium Chloride 1,000 ML 999 ML IV (01:03)
[2021-07-11 01:06] LABS: Lactic Acid 0.7 mmol/L (0.5-2.0)
[2021-07-11 01:07] LABS: Ethanol < 10 mg/dL
[2021-07-11 01:11] LABS: COVID-19 Test Negative (Negative); IDNOW Serial# 55D5AD1C; Influenza A Negative (Negative); Influenza B2 Negative (Negative)
[2021-07-11 01:15] LABS: Troponin-I High Sensitivity < 3.5 ng/L (<3.5-17.0)
[2021-07-11 01:21] LABS: Alanine Aminotransferase 12 U/L (0-31); Albumin Level 3.8 g/dL (3.5-5.0); Alkaline Phosphatase 67 U/L (39-117); Anion Gap 17 (12-20); Aspartate Amino Transferase 21 U/L (5-31); Bilirubin Total 0.4 mg/dL (0.0-1.0); Blood Urea Nitrogen 11 mg/dL (9-16); Calcium 9.5 mg/dL (8.4-10.2); Carbon Dioxide 20 mmol/L (22-29); Chloride 105 mmol/L (96-108); Estimated Glomerular Filt Rate > 60; Glucose Random 81 mg/dL (60-115); Lipase 47 U/L (8-78); Sodium 138 mmol/L (135-145); Total Protein 7.5 g/dL (6.5-8.0)
[2021-07-11] MEDS: Albuterol Sulfate 90 MCG 8 GM INHALER 4 PUFF INHALE (01:56)
[2021-07-11 02:25] LABS: Appearance Urine CLOUDY; Color Urine YELLOW; Glucose Urine UA NEG (NEG); Leukocyte Esterase Urine 2+ (NEG); Nitrite Urine POS (NEG); Specific Gravity - Urine >= 1.030 (1.005-1.025); UACC Culture Trigger YES; Urine Blood TRACE (NEG); Urine Ketones >=80 MG/DL (NEG); Urine Protein TRACE MG/DL (NEG-TRACE)
[2021-07-11 02:26] LABS: UPreg QC Valid YES; Urine Pregnancy NEGATIVE (NEGATIVE)
[2021-07-11 02:34] LABS: Amphetamine Screen Urine Not Detected (Not Detect); Barbiturates, Urine Not Detected (Not Detect); Benzodiazepines Screen Urine Not Detected (Not Detect); Cannabinoid Screen Urine POSITIVE (Not Detect); Cocaine Screen Urine POSITIVE (Not Detect); Fentanyl, urine POSITIVE (Not Detect); Opiate Screen Urine Not Detected (Not Detect); Phencyclidine Screen Urine Not Detected (Not Detect)
[2021-07-11 02:34] LABS: Bacteria Urine 4+ /LPF; Mucus Urine 3+ /LPF; Squamous Epithelial Cell Urine 2+ /LPF; WBC Clumps Urine NOTED; WBC Urine 50-75 /HPF (0-4)
[2021-07-11] MEDS: Azithromycin 500 MG in 0.9 % Sodium Chloride 250 ML 125 MG IV (02:59)
[2021-07-11] MEDS: Enoxaparin Sodium 40 MG/0.4 ML SYRINGE SUBCUT (03:52)
[2021-07-11 06:20] LABS: MANUAL DIFF FLAG NO
[2021-07-11 06:25] LABS: Basophils Percent Auto 0.3 % (0-2); Eosinophils Absolute Auto 0.1 X10*3/uL (0.0-0.4); Eosinophils Percent Auto 1.2 % (0-4); Hematocrit 30.2 % (37.0-47.0); Hemoglobin 9.3 g/dl (12.0-16.0); Imm Gran Abs Auto 0.03 X10*3/uL (0.00-0.03); Imm Gran Pct Auto 0.5 % (0.0-0.4); Lymphocytes Absolute Auto 1.5 X10*3/uL (1.2-4.9); Lymphocytes Percent Auto 22.4 % (20-40); Mean Corpuscular HGB Conc 30.8 g/dl (31.0-35.0); Mean Corpuscular Hemoglobin 24.3 pg (27.0-33.0); Mean Corpuscular Volume 79.1 fL (80.0-98.0); Mean Platelet Volume 10.6 fL (9.4-12.3); Monocytes Absolute Auto 0.5 X10*3/uL (0.1-1.2); Monocytes Percent Auto 8.3 % (2-11); Neutrophils Absolute Auto 4.4 x10*3/uL (2.0-8.3); Neutrophils Percent Auto 67.3 % (45-73); Platelet Count 224 X10*3/uL (160-400); Red Blood Count 3.82 X10*6/uL (4.20-5.50); Red Cell Distribution Width 15.6 % (11.0-16.0); White Blood Count 6.5 X10*3/uL (4.8-10.8)
[2021-07-11 06:39] LABS: Anion Gap 16 (12-20); Blood Urea Nitrogen 10 mg/dL (9-16); Calcium 8.6 mg/dL (8.4-10.2); Carbon Dioxide 20 mmol/L (22-29); Chloride 108 mmol/L (96-108); Creatinine Clr Calc Pharmacy 93.3; Estimated Glomerular Filt Rate > 60; Glucose Random 76 mg/dL (60-115); Potassium 3.2 mmol/L (3.3-5.1); Sodium 141 mmol/L (135-145)
--- NOTE | 2021-07-11 07:03 | P.HPHOSP_ITS ---
History of Present Illness Date of Service: 07/11/21 Chief Complaint: Confusion This is a 46-year-old female with past medical history of polysubstance abuse who presents to the hospital with episode of confusion. Patient is oriented to self and time now but reports that she transient episode of confusion where she called the police because she called 911 because she could not unlock her phone. Police arrived at the scene and patient was confused therefore they brought her to the hospital. Patient urine is positive for fentanyl, marijuana, as well as cocaine, patient denies using any illicit substances. Patient was recently seen in the ED for the same exact presentation, found to have a UTI, prescribed Bactrim but did not get the script or get the medication. Patient reports that she does not remember ever coming to the hospital being treated for UTI. Patient otherwise denies any headache, no change in vision, no abdominal pain nausea or vomiting, no chest pain, no shortness of breath, no urinary symptoms and no lower extremity edema. On arrival to the ED patient hemodynamically stable with no significant abnormal vitals Labs are significant for WBC of 6.5, hemoglobin of 9.3 which is around her baseline, potassium of 4.0, UA positive for nitrites, leukocyte Estrace, WBC, UDS is positive for fentanyl, cocaine and marijuana Head CT shows symmetric region of hypoattenuation in the globus pallidus which appears slightly more prominent than on 07/06, this appearance can be seen with carbon monoxide poisoning and may be further evaluated with MRI Chest x-ray shows no acute cardiopulmonary findings Review of Systems Review of Systems: Yes all other systems are reviewed and are negative [facility] Medical History (Updated 07/11/21 @ 07:12 by Lisa Menard MD) Polysubstance abuse Family History (Updated 07/11/21 @ 07:11 by Lisa Menard MD) Other No family history of coronary artery disease Surgical History (Updated 07/11/21 @ 07:11 by Lisa Menard MD) No pertinent past surgical history Social History (Updated 07/11/21 @ 07:11 by Lisa Menard MD) Unable to assess alcohol history related to: Unable to respond Patient Tobacco Use Status: Current everyday Tobacco user Use of substances other than those prescribed or required for medical reasons: Yes Advance Directives: No Meds Allergies Allergy/AdvReac Type Severity Reaction Status Date / Time codeine [CODEINE] Allergy Severe ANAPHLAXIS Verified 01/27/21 10:00 Penicillins Allergy Severe HIVES Verified 01/27/21 10:00 penicillin V Allergy Unknown hives Verified 01/27/21 10:00 Active Medications: Current Medications Acetaminophen (Acetaminophen 325 Mg Tablet) 650 mg PO Q6H PRN PRN Reason: Pain, Mild (Pain Scale 1-3) Docusate Sodium (Docusate Sodium 100 Mg Capsule) 100 mg PO DAILY PRN PRN Reason: Constipation Enoxaparin Sodium (Enoxaparin Sodium 40 Mg/0.4 Ml Syringe) 40 mg SUBCUT Q24H BALDO Last Admin: 07/11/21 03:52 Dose: 40 mg Documented by: Ceftriaxone Sodium 1 gm/ (Sodium Chloride) 50 mls @ 100 mls/hr IV Q24H [facility] Ondansetron HCl (Ondansetron Hcl 4 Mg/2 Ml Vial) 4 mg IVPUSH Q8H PRN PRN Reason: Nausea and Vomiting Sodium Chloride (0.9 % Sodium Chloride Flush 3 Ml Syringe) 3 ml IVFLUSH QSHIFT [facility] Physical Exam Vital Signs and Narrative: Vital Signs: Last Vital Signs Temp 98.9 F 07/11/21 00:23 Pulse 70 07/11/21 06:51 Resp 18 07/11/21 06:51 BP 138/69 07/11/21 06:51 Pulse Ox 93 07/11/21 06:51 BMI result Body Mass Index 28.3 Const: General: cooperative and no acute distress Orientation/consciousness: patient oriented x3 Eyes: General: appearance normal, both eyes and all related structures Pupils: Equal, round and reactive pupils present Resp: Effort & Inspection: normal respiratory effort Auscultation: clear to auscultation bilaterally Cardio: Rate: regular rate Rhythm: regular rhythm GI: Palpation (GI): Soft to palpation Auscultation: normal bowel sounds Skin: General skin exam: no rashes or lesions noted Neuro: General: patient oriented x3 Cranial nerves: Yes Equal, round and reactive pupils present Cognition (Neuro): normal cognition Extrem: General: Yes normal to inspection and Yes no pedal edema Results Labs CBC and Chem 7: 07/11/21 05:53 07/11/21 05:53 Labs: Laboratory Results - last 24 hr 07/11/21 07/11/21 07/11/21 00:47 00:47 00:47 MCV MCH MCHC RDW Plt Count MPV Immature Gran % (Auto) Neut % (Auto) Lymph % (Auto) [place] % (Auto) Eos % (Auto) Baso % (Auto) Lymph # (Auto) [place] # (Auto) Eos # (Auto) Baso # (Auto) Abs Immat Gran (auto) Absolute Neuts (auto) Absolute Nucleated RBC Nucleated RBC % (auto) Anion Gap 17 Estim Creat Clear Calc 87.0 Estimated GFR > 60 Random Glucose 81 Lactic Acid 0.7 Calcium 9.5 Total Bilirubin 0.4 AST 21 ALT 12 Alkaline Phosphatase 67 D Troponin I High Sens Total Protein 7.5 Albumin 3.8 Lipase 47 Urine Color Urine Appearance Urine pH Ur Specific [place] Urine Protein Urine Glucose (UA) Urine Ketones Urine Blood Urine Nitrite Ur Leukocyte Esterase Urine RBC Urine WBC Urine WBC Clumps Ur Squamous Epith Cells Urine Bacteria Urine Mucus Urine Test Urine Opiates Screen Urine Fentanyl Screen Ur Barbiturates Screen Ur Phencyclidine Scrn Ur Amphetamines Screen U Benzodiazepines Scrn Urine Cocaine Screen U Marijuana (THC) Screen Ethyl Alcohol COVID-19 (CALVIN) Negative COVID-19 Clin Com See Note Influenza Type A (CARO) Influenza Type B (CARO) Influenza A & B Note 07/11/21 07/11/21 07/11/21 00:47 00:48 00:48 MCV 77.8 L MCH 23.9 L MCHC 30.7 L RDW 15.5 Plt Count 276 MPV 10.1 Immature Gran % (Auto) 0.4 Neut % (Auto) 67.8 Lymph % (Auto) 22.1 [place] % (Auto) 7.6 Eos % (Auto) 1.8 Baso % (Auto) 0.3 Lymph # (Auto) 1.7 [place] # (Auto) 0.6 Eos # (Auto) 0.1 Baso # (Auto) 0.0 Abs Immat Gran (auto) 0.03 Absolute Neuts (auto) 5.3 Absolute Nucleated RBC 0.000 Nucleated RBC % (auto) 0.0 Anion Gap Estim Creat Clear Calc Estimated GFR Random Glucose Lactic Acid Calcium Total Bilirubin AST ALT Alkaline Phosphatase Troponin I High Sens < 3.5 Total Protein Albumin Lipase Urine Color Urine Appearance Urine pH Ur Specific [place] Urine Protein Urine Glucose (UA) Urine Ketones Urine Blood Urine Nitrite Ur Leukocyte Esterase Urine RBC Urine WBC Urine WBC Clumps Ur Squamous Epith Cells Urine Bacteria Urine Mucus Urine Test Urine Opiates Screen Urine Fentanyl Screen Ur Barbiturates Screen Ur Phencyclidine Scrn Ur Amphetamines Screen U Benzodiazepines Scrn Urine Cocaine Screen U Marijuana (THC) Screen Ethyl Alcohol COVID-19 (CALVIN) COVID-19 Clin Com Influenza Type A (CARO) Negative Influenza Type B (CARO) Negative Influenza A & B Note See Note 07/11/21 07/11/21 07/11/21 00:48 02:12 02:12 MCV MCH MCHC RDW Plt Count MPV Immature Gran % (Auto) Neut % (Auto) Lymph % (Auto) [place] % (Auto) Eos % (Auto) Baso % (Auto) Lymph # (Auto) [place] # (Auto) Eos # (Auto) Baso # (Auto) Abs Immat Gran (auto) Absolute Neuts (auto) Absolute Nucleated RBC Nucleated RBC % (auto) Anion Gap Estim Creat Clear Calc Estimated GFR Random Glucose Lactic Acid Calcium Total Bilirubin AST ALT Alkaline Phosphatase Troponin I High Sens Total Protein Albumin Lipase Urine Color YELLOW Urine Appearance CLOUDY Urine pH 6.0 Ur Specific [place] >= 1.030 H Urine Protein TRACE Urine Glucose (UA) NEG Urine Ketones >=80 Urine Blood TRACE Urine Nitrite POS H Ur Leukocyte Esterase 2+ H Urine RBC 1-4 Urine WBC 50-75 H Urine WBC Clumps NOTED Ur Squamous Epith Cells 2+ Urine Bacteria 4+ Urine Mucus 3+ Urine Test NEGATIVE Urine Opiates Screen Urine Fentanyl Screen Ur Barbiturates Screen Ur Phencyclidine Scrn Ur Amphetamines Screen U Benzodiazepines Scrn Urine Cocaine Screen U Marijuana (THC) Screen Ethyl Alcohol < 10 COVID-19 (CALVIN) COVID-19 Clin Com Influenza Type A (CARO) Influenza Type B (CARO) Influenza A & B Note 07/11/21 07/11/21 07/11/21 02:13 05:53 05:53 MCV 79.1 L MCH 24.3 L MCHC 30.8 L RDW 15.6 Plt Count 224 MPV 10.6 Immature Gran % (Auto) 0.5 H Neut % (Auto) 67.3 Lymph % (Auto) 22.4 [place] % (Auto) 8.3 Eos % (Auto) 1.2 Baso % (Auto) 0.3 Lymph # (Auto) 1.5 [place] # (Auto) 0.5 Eos # (Auto) 0.1 Baso # (Auto) 0.0 Abs Immat Gran (auto) 0.03 Absolute Neuts (auto) 4.4 Absolute Nucleated RBC 0.000 Nucleated RBC % (auto) 0.0 Anion Gap 16 Estim Creat Clear Calc 93.3 Estimated GFR > 60 Random Glucose 76 Lactic Acid Calcium 8.6 D Total Bilirubin AST ALT Alkaline Phosphatase Troponin I High Sens Total Protein Albumin Lipase Urine Color Urine Appearance Urine pH Ur Specific [place] Urine Protein Urine Glucose (UA) Urine Ketones Urine Blood Urine Nitrite Ur Leukocyte Esterase Urine RBC Urine WBC Urine WBC Clumps Ur Squamous Epith Cells Urine Bacteria Urine Mucus Urine Test Urine Opiates Screen Not Detected Urine Fentanyl Screen POSITIVE H Ur Barbiturates Screen Not Detected Ur Phencyclidine Scrn Not Detected Ur Amphetamines Screen Not Detected U Benzodiazepines Scrn Not Detected Urine Cocaine Screen POSITIVE H U Marijuana (THC) Screen POSITIVE H Ethyl Alcohol COVID-19 (CALVIN) COVID-19 Clin Com Influenza Type A (CARO) Influenza Type B (CARO) Influenza A & B Note Imaging Radiologist's Impressions: Impressions Head CT 07/11/21 02:42 IMPRESSION: Symmetric regions of of hypoattenuation in the globus pallidus, which appears slightly more prominent than on 07/06/2021. This appearance can be seen with carbon monoxide poisoning and may be further evaluated with MRI. This was discussed with Dr. Jaeger on 07/11/2021 3:22 AM. Chest X-Ray 07/11/21 02:45 IMPRESSION: No acute cardiopulmonary findings. Assessment and Plan (1) Altered mental status: Qualifiers: Altered mental status type: unspecified Qualified Code(s): R41.82 - Altered mental status, unspecified Status: Acute (2) E. coli UTI (urinary tract infection): Status: Acute (3) Abnormal head CT: Status: Acute Plan This is a 46-year-old female with pulse of since abuse presents to the hospital with a transient confusion # encephalopathy - possibly secondary to polysubstance abuse versus carbon monoxide poisoning? 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
[2021-07-11] MEDS: 0.9 % Sodium Chloride Flush 3 ML SYRINGE IVFLUSH ×3 (07:52→22:36)
--- NOTE | 2021-07-11 08:56 | PM.EVENT ---
Event Note Date of Service: 07/11/21 Event Note: 46-year-old female with pulse of since abuse presents to the hospital with a transient confusion physical exam: uncahnged from admission. Assessment and plan coordinated in H&P note: encephalopathy - UDS is positive for cocaine, fentanyl and marijuana although patient adamantly denies using any illicit substance - at this time will admit treat UTI and monitor mentation, Neurology-possible presentation/imaging changes related to cocaine ,MRI added. E coli UTI:continue iv antibiotivs inpatient needs : encephalopathy, E coli UTI
--- NOTE | 2021-07-11 09:35 | MHC.CM.PN ---
PT REPORTS SHE LIVES ALONE AND IS INDEPENDENT WITH CARE PT DENIES USING DME OR HAVING HOME SERVICES PT CANNOT REMEMBER THE NAME OF HER PCP OR THE PRACTICE, ONLY THAT IT IS IN [place] SHE WILL TRY TO OBTAIN THE INFORMATION PT DECLINES TO COMPLETE A HCP PT REPORTS SHE IS COVID-19 VACCINATED CURRENT DC PLAN IS HOME VS HOME WITH [employer] TEAM RESOURCES PT TO ARRANGE TRANSPORT
--- NOTE | 2021-07-11 10:33 | PM.NEUROCN ---
History of Present Illness Data of Consult Service Date: 07/11/21 Primary Care Provider: Unknown Physician HPI Reason for consult: Abnormal head CT and confused 46 years old woman was brought to hospital for change in mental status. Apparently she called 911 for some reason when police arrived she could not open her door. She was found to be confused and brought to hospital. Her drug screen was positive for multiple drugs including fentanyl and cocaine. Also she has been to hospital recently with similar presentation and was diagnosed with urinary tract infection. She did not remember that visit. When I asked her why she was here she said that she was probably drunk. When I asked her how much she drank? She stated that probably 6 PACS. She was quite vague about her statements. Review of Systems Review of Systems: Could not be reliably done. [facility] Past Medical History Medical History (Updated 07/11/21 @ 10:36 by Valente Oscar MD) Polysubstance abuse Family History Family History (Updated 07/11/21 @ 07:11 by Lisa Menard MD) Other No family history of coronary artery disease Surgical History Surgical History (Updated 07/11/21 @ 07:11 by Lisa Menard MD) No pertinent past surgical history Social History Social History (Updated 07/11/21 @ 07:11 by Lisa Menard MD) Unable to assess alcohol history related to: Unable to respond Patient Tobacco Use Status: Current everyday Tobacco user Use of substances other than those prescribed or required for medical reasons: Yes Advance Directives: No service: No Current occupational status: unemployed Meds Allergies Allergy/AdvReac Type Severity Reaction Status Date / Time codeine [CODEINE] Allergy Severe ANAPHLAXIS Verified 01/27/21 10:00 Penicillins Allergy Severe HIVES Verified 01/27/21 10:00 penicillin V Allergy Unknown hives Verified 01/27/21 10:00 Active Medications: Current Medications Acetaminophen (Acetaminophen 325 Mg Tablet) 650 mg PO Q6H PRN PRN Reason: Pain, Mild (Pain Scale 1-3) Docusate Sodium (Docusate Sodium 100 Mg Capsule) 100 mg PO DAILY PRN PRN Reason: Constipation Enoxaparin Sodium (Enoxaparin Sodium 40 Mg/0.4 Ml Syringe) 40 mg SUBCUT Q24H BALDO Last Admin: 07/11/21 03:52 Dose: 40 mg Documented by: Ceftriaxone Sodium 1 gm/ (Sodium Chloride) 50 mls @ 100 mls/hr IV Q24H BALDO Ondansetron HCl (Ondansetron Hcl 4 Mg/2 Ml Vial) 4 mg IVPUSH Q8H PRN PRN Reason: Nausea and Vomiting Sodium Chloride (0.9 % Sodium Chloride Flush 3 Ml Syringe) 3 ml IVFLUSH QSHIFT BALDO Last Admin: 07/11/21 07:52 Dose: 3 ml Documented by: Physical Exam Vital Signs: Vital Signs: Last Vital Signs Temp 98.9 F 07/11/21 00:23 Pulse 70 07/11/21 06:51 Resp 18 07/11/21 06:51 BP 138/69 07/11/21 06:51 Pulse Ox 93 07/11/21 06:51 BMI result Body Mass Index 28.3 Neuro: Other: Alert and awake with normal spontaneity of speech fluency comprehension and vague affect. Comprehension was intact. She was following commands. She did not know exactly what had happened. Face was symmetrical. Visual apl are full. Extraocular muscles were intact. [id number] testing did not reveal any significant abnormality. Deep tendon reflexes were trace to absent with flexor plantars. Results Labs CBC & Chem 7: 07/11/21 05:53 07/11/21 05:53 Labs: Short CBC 07/11/21 07/11/21 Range/Units 00:48 05:53 WBC 7.9 6.5 (4.8-10.8) X10*3/uL Hgb 9.9 L 9.3 L (12.0-16.0) g/dl Hct 32.3 L 30.2 L (37.0-47.0) % Plt Count 276 224 (160-400) X10*3/uL BMP 07/11/21 07/11/21 00:47 05:53 Sodium 138 141 Potassium 4.0 3.2 L Chloride 105 108 Carbon Dioxide 20 L 20 L BUN 11 10 Creatinine 0.88 0.82 Calcium 9.5 8.6 D Liver Function 07/11/21 Range/Units 00:47 Total Bilirubin 0.4 (0.0-1.0) mg/dL AST 21 (5-31) U/L ALT 12 (0-31) U/L Alkaline Phosphatase 67 D (39-117) U/L Albumin 3.8 (3.5-5.0) g/dL Urine 07/11/21 Range/Units 02:12 Urine Color YELLOW Urine Appearance CLOUDY Urine pH 6.0 (5.0-8.0) Ur Specific [place] >= 1.030 H (1.005-1.025) Urine Protein TRACE (NEG-TRACE) MG/DL Urine Glucose (UA) NEG (NEG) MG/DL her noncontrast head CT revealed bilateral globus pallidus area hypodensities. Her previous CT scan done few days ago reveal similar abnormalities though not as pronounced as this 1. There was also a left deep subcortical hypodensity per Assessment and Plan (1) Toxic encephalopathy: Status: Acute 46 years old woman with poorly drug abuse including cocaine and fentanyl. She was brought to hospital with confusion. She had no recollection of what had happened. There was no witnessing of any seizure. Her head CT revealed bilateral globus pallidus area hypodensities. Reviewing her previous CT scan one could see those lesions though not as defined as this one. There was no history of carbon monoxide exposure. Similar lesions can be seen with cocaine induced encephalopathy. Globus pallidus is 1 of the more metabolically demanding area of brain, which was at particular risk with hypoxemia or with exposure to certain chemicals such as cocaine. She probably had been using cocaine for a while. Her previous head CT revealed this finding and then she continued to use the drug. There was also evidence of urinary tract infection, which probably has no direct bearing on this finding. In directly, urinary tract infection and severe anemia contributed to this problem. I recommend informing her that she has already injured her brain significantly with drug use, which could result in lifelong behavioral problems. She should completely stop all drug abuse including marijuana fentanyl cocaine and alcohol. Her anemia should be looked at and aggressively treated to avoid any risk for further problems. Academically speaking, a brain MRI without contrast might be useful to look at. (2) Anemia: Status: Acute Procedures Date of Service Date of Service: 07/11/21
[2021-07-11 12:39] LABS: Alanine Aminotransferase 10 U/L (0-31); Albumin Level 3.5 g/dL (3.5-5.0); Alkaline Phosphatase 60 U/L (39-117); Aspartate Amino Transferase 14 U/L (5-31); Bilirubin Direct < 0.2 mg/dL (0.0-0.5); Bilirubin Total 0.2 mg/dL (0.0-1.0); Iron 20 mcg/dL (30-160); Percent Iron Saturation 5 % (15-50); Total Iron Binding Capacity 388 mcg/dL (228-428); Total Protein 6.6 g/dL (6.5-8.0); Unsaturated Iron Binding 368 ug/dL
[2021-07-11 14:14] LABS: Folate 12.3 ng/mL (> or = 4.0); Vitamin B12 315 pg/mL (200-900)
[2021-07-11 14:39] LABS: Magnesium 1.6 mg/dL (1.6-2.6)
[2021-07-11] MEDS: Potassium Chloride Packet 20 MEQ PACKET 40 MEQ PO (14:43)
--- NOTE | 2021-07-11 14:58 | PC.NURSE ---
Report called in to [facility] RN Magdiel-room 350 will be available for patient in 30 minutes.
--- NOTE | 2021-07-11 16:29 | HO.ADDICTCON ---
History of Present Illness Date of Service: 07/11/2021 Chief Complaint: UTI, encephalopathy Reason for Consult: EMILIE eval UDS +fentanyl and cocaine Requesting physician: Tenzin Araya Sources of Information: patient interviewed and chart reviewed HPI Narrative: Patient is a 46 year old female who presented to ED with confusion Admitted for further eval after CT scan showed lesions to brain usually seen in carbon monoxide poisoning. Also has UTI and UDS +for cocaine and fentanyl Patient seen in room 2 of ED while awaiting transfer to medical floor. Patient somewhat slow to respond to questions, but cooperative Denies recent substance use. This fiction writer informed patient that UDS was +, patient reports I don't think I have used anything, at least not to my knowledge . Last use reported as being one month ago. Somewhat vague in responses. Denies any withdrawal sx. Did not appear to be experiencing any withdrawal sx when seen by this fiction writer. Review of Systems Constitutional: Reports as per HPI Diagnostics Vital Signs (24Hr): Vital Signs - 24 hr 07/11/21 00:23 07/11/21 00:29 07/11/21 01:59 Temperature 98.9 F Pulse Rate 75 60 57 Respiratory Rate 18 14 14 Blood Pressure 133/108 H Pulse Oximetry 96 07/11/21 02:13 07/11/21 03:57 07/11/21 06:51 Temperature Pulse Rate 70 64 70 Respiratory Rate 17 20 18 Blood Pressure 139/61 139/56 L 138/69 Pulse Oximetry 99 97 93 07/11/21 11:54 Temperature Pulse Rate 65 Respiratory Rate 22 H Blood Pressure 150/66 H Pulse Oximetry 94 BMI result Body Mass Index 28.3 Labs Results: 07/11/21 05:53 07/11/21 05:53 Labs: Laboratory Results - last 48 hr 07/11/21 07/11/21 07/11/21 00:47 00:47 00:47 WBC RBC Hgb Hct MCV MCH MCHC RDW Plt Count MPV Immature Gran % (Auto) Neut % (Auto) Lymph % (Auto) [place] % (Auto) Eos % (Auto) Baso % (Auto) Lymph # (Auto) [place] # (Auto) Eos # (Auto) Baso # (Auto) Abs Immat Gran (auto) Absolute Neuts (auto) Absolute Nucleated RBC Nucleated RBC % (auto) Sodium 138 Potassium 4.0 Chloride 105 Carbon Dioxide 20 L Anion Gap 17 BUN 11 Creatinine 0.88 Estim Creat Clear Calc 87.0 Estimated GFR > 60 Random Glucose 81 Lactic Acid 0.7 Calcium 9.5 Magnesium Iron TIBC % Saturation Unsat Iron Binding Total Bilirubin 0.4 Direct Bilirubin AST 21 ALT 12 Alkaline Phosphatase 67 D Troponin I High Sens Total Protein 7.5 Albumin 3.8 Lipase 47 Vitamin B12 Folate Urine Color Urine Appearance Urine pH Ur Specific [place] Urine Protein Urine Glucose (UA) Urine Ketones Urine Blood Urine Nitrite Ur Leukocyte Esterase Urine RBC Urine WBC Urine WBC Clumps Ur Squamous Epith Cells Urine Bacteria Urine Mucus Urine Test Urine Opiates Screen Urine Fentanyl Screen Ur Barbiturates Screen Ur Phencyclidine Scrn Ur Amphetamines Screen U Benzodiazepines Scrn Urine Cocaine Screen U Marijuana (THC) Screen Ethyl Alcohol COVID-19 ([facility]IN) Negative COVID-19 Clin Com See Note Influenza Type A (CARO) Influenza Type B (CARO) Influenza A & B Note 07/11/21 07/11/21 07/11/21 00:47 00:48 00:48 WBC 7.9 RBC 4.15 L Hgb 9.9 L Hct 32.3 L MCV 77.8 L MCH 23.9 L MCHC 30.7 L RDW 15.5 Plt Count 276 MPV 10.1 Immature Gran % (Auto) 0.4 Neut % (Auto) 67.8 Lymph % (Auto) 22.1 [place] % (Auto) 7.6 Eos % (Auto) 1.8 Baso % (Auto) 0.3 Lymph # (Auto) 1.7 [place] # (Auto) 0.6 Eos # (Auto) 0.1 Baso # (Auto) 0.0 Abs Immat Gran (auto) 0.03 Absolute Neuts (auto) 5.3 Absolute Nucleated RBC 0.000 Nucleated RBC % (auto) 0.0 Sodium Potassium Chloride Carbon Dioxide Anion Gap BUN Creatinine Estim Creat Clear Calc Estimated GFR Random Glucose Lactic Acid Calcium Magnesium Iron TIBC % Saturation Unsat Iron Binding Total Bilirubin Direct Bilirubin AST ALT Alkaline Phosphatase Troponin I High Sens < 3.5 Total Protein Albumin Lipase Vitamin B12 Folate Urine Color Urine Appearance Urine pH Ur Specific [place] Urine Protein Urine Glucose (UA) Urine Ketones Urine Blood Urine Nitrite Ur Leukocyte Esterase Urine RBC Urine WBC Urine WBC Clumps Ur Squamous Epith Cells Urine Bacteria Urine Mucus Urine Test Urine Opiates Screen Urine Fentanyl Screen Ur Barbiturates Screen Ur Phencyclidine Scrn Ur Amphetamines Screen U Benzodiazepines Scrn Urine Cocaine Screen U Marijuana (THC) Screen Ethyl Alcohol COVID-19 ([facility]) COVID-19 Clin Com Influenza Type A (CARO) Negative Influenza Type B (CAOR) Negative Influenza A & B Note See Note 07/11/21 07/11/21 07/11/21 00:48 02:12 02:12 WBC RBC Hgb Hct MCV MCH MCHC RDW Plt Count MPV Immature Gran % (Auto) Neut % (Auto) Lymph % (Auto) [place] % (Auto) Eos % (Auto) Baso % (Auto) Lymph # (Auto) [place] # (Auto) Eos # (Auto) Baso # (Auto) Abs Immat Gran (auto) Absolute Neuts (auto) Absolute Nucleated RBC Nucleated RBC % (auto) Sodium Potassium Chloride Carbon Dioxide Anion Gap BUN Creatinine Estim Creat Clear Calc Estimated GFR Random Glucose Lactic Acid Calcium Magnesium Iron TIBC % Saturation Unsat Iron Binding Total Bilirubin Direct Bilirubin AST ALT Alkaline Phosphatase Troponin I High Sens Total Protein Albumin Lipase Vitamin B12 Folate Urine Color YELLOW Urine Appearance CLOUDY Urine pH 6.0 Ur Specific [place] >= 1.030 H Urine Protein TRACE Urine Glucose (UA) NEG Urine Ketones >=80 Urine Blood TRACE Urine Nitrite POS H Ur Leukocyte Esterase 2+ H Urine RBC 1-4 Urine WBC 50-75 H Urine WBC Clumps NOTED Ur Squamous Epith Cells 2+ Urine Bacteria 4+ Urine Mucus 3+ Urine Test NEGATIVE Urine Opiates Screen Urine Fentanyl Screen Ur Barbiturates Screen Ur Phencyclidine Scrn Ur Amphetamines Screen U Benzodiazepines Scrn Urine Cocaine Screen U Marijuana (THC) Screen Ethyl Alcohol < 10 COVID-19 ([facility]) COVID-19 Clin Com Influenza Type A (CARO) Influenza Type B (CARO) Influenza A & B Note 07/11/21 07/11/21 07/11/21 02:13 05:53 05:53 WBC 6.5 RBC 3.82 L Hgb 9.3 L Hct 30.2 L MCV 79.1 L MCH 24.3 L MCHC 30.8 L RDW 15.6 Plt Count 224 MPV 10.6 Immature Gran % (Auto) 0.5 H Neut % (Auto) 67.3 Lymph % (Auto) 22.4 [place] % (Auto) 8.3 Eos % (Auto) 1.2 Baso % (Auto) 0.3 Lymph # (Auto) 1.5 [place] # (Auto) 0.5 Eos # (Auto) 0.1 Baso # (Auto) 0.0 Abs Immat Gran (auto) 0.03 Absolute Neuts (auto) 4.4 Absolute Nucleated RBC 0.000 Nucleated RBC % (auto) 0.0 Sodium 141 Potassium 3.2 L Chloride 108 Carbon Dioxide 20 L Anion Gap 16 BUN 10 Creatinine 0.82 Estim Creat Clear Calc 93.3 Estimated GFR > 60 Random Glucose 76 Lactic Acid Calcium 8.6 D Magnesium 1.6 Iron 20 L TIBC 388 % Saturation 5 L Unsat Iron Binding 368 Total Bilirubin 0.2 Direct Bilirubin < 0.2 AST 14 ALT 10 Alkaline Phosphatase 60 Troponin I High Sens Total Protein 6.6 Albumin 3.5 Lipase Vitamin B12 Folate Urine Color Urine Appearance Urine pH Ur Specific [place] Urine Protein Urine Glucose (UA) Urine Ketones Urine Blood Urine Nitrite Ur Leukocyte Esterase Urine RBC Urine WBC Urine WBC Clumps Ur Squamous Epith Cells Urine Bacteria Urine Mucus Urine Test Urine Opiates Screen Not Detected Urine Fentanyl Screen POSITIVE H Ur Barbiturates Screen Not Detected Ur Phencyclidine Scrn Not Detected Ur Amphetamines Screen Not Detected U Benzodiazepines Scrn Not Detected Urine Cocaine Screen POSITIVE H U Marijuana (THC) Screen POSITIVE H Ethyl Alcohol COVID-19 ([facility]) COVID-19 Clin Com Influenza Type A (CARO) Influenza Type B (CARO) Influenza A & B Note 07/11/21 05:53 WBC RBC Hgb Hct MCV MCH MCHC RDW Plt Count MPV Immature Gran % (Auto) Neut % (Auto) Lymph % (Auto) [place] % (Auto) Eos % (Auto) Baso % (Auto) Lymph # (Auto) [place] # (Auto) Eos # (Auto) Baso # (Auto) Abs Immat Gran (auto) Absolute Neuts (auto) Absolute Nucleated RBC Nucleated RBC % (auto) Sodium Potassium Chloride Carbon Dioxide Anion Gap BUN Creatinine Estim Creat Clear Calc Estimated GFR Random Glucose Lactic Acid Calcium Magnesium Iron TIBC % Saturation Unsat Iron Binding Total Bilirubin Direct Bilirubin AST ALT Alkaline Phosphatase Troponin I High Sens Total Protein Albumin Lipase Vitamin B12 315 Folate 12.3 Urine Color Urine Appearance Urine pH Ur Specific [place] Urine Protein Urine Glucose (UA) Urine Ketones Urine Blood Urine Nitrite Ur Leukocyte Esterase Urine RBC Urine WBC Urine WBC Clumps Ur Squamous Epith Cells Urine Bacteria Urine Mucus Urine Test Urine Opiates Screen Urine Fentanyl Screen Ur Barbiturates Screen Ur Phencyclidine Scrn Ur Amphetamines Screen U Benzodiazepines Scrn Urine Cocaine Screen U Marijuana (THC) Screen Ethyl Alcohol COVID-19 ([facility]) COVID-19 Clin Com Influenza Type A (CARO) Influenza Type B (CARO) Influenza A & B Note Imaging Radiology Impressions: ITS Impressions Head CT 07/11/21 02:42 IMPRESSION: Symmetric regions of of hypoattenuation in the globus pallidus, which appears slightly more prominent than on 07/06/2021. This appearance can be seen with carbon monoxide poisoning and may be further evaluated with MRI. This was discussed with Dr. Jaeger on 07/11/2021 3:22 AM. Chest X-Ray 07/11/21 02:45 IMPRESSION: No acute cardiopulmonary findings. Mental Status Exam Mental Status Exam Patient Appearance: Appropriate Level of Consciousness: Awake and Alert Patient Behavior: Guarded and Cooperative Thought Process: Slowed Thinking Judgement: Fair Medications Medications Current Medications Acetaminophen (Acetaminophen 325 Mg Tablet) 650 mg PO Q6H PRN PRN Reason: Pain, Mild (Pain Scale 1-3) Docusate Sodium (Docusate Sodium 100 Mg Capsule) 100 mg PO DAILY PRN PRN Reason: Constipation Enoxaparin Sodium (Enoxaparin Sodium 40 Mg/0.4 Ml Syringe) 40 mg SUBCUT Q24H [facility] Last Admin: 07/11/21 03:52 Dose: 40 mg Documented by: Ceftriaxone Sodium 1 gm/ (Sodium Chloride) 50 mls @ 100 mls/hr IV Q24H BALDO Ondansetron HCl (Ondansetron Hcl 4 Mg/2 Ml Vial) 4 mg IVPUSH Q8H PRN PRN Reason: Nausea and Vomiting Sodium Chloride (0.9 % Sodium Chloride Flush 3 Ml Syringe) 3 ml IVFLUSH QSHIFT [facility] Last Admin: 07/11/21 07:52 Dose: 3 ml Documented by: Allergies Allergies Allergy/AdvReac Type Severity Reaction Status Date / Time codeine [CODEINE] Allergy Severe ANAPHLAXIS Verified 01/27/21 10:00 Penicillins Allergy Severe HIVES Verified 01/27/21 10:00 penicillin V Allergy Unknown hives Verified 01/27/21 10:00 Assessment & Plan Assessment & Plan (1) Toxic encephalopathy: Status: Acute Code(s): G92.9 - Unspecified toxic encephalopathy Assessment and Plan: At time of interview patient did not appear to be a good historian. Collateral information regarding patients baseline may be helpful Denies any substance use. Encouraged patient to report any withdrawal sx should thy present. Of note, patient reported to neurology that she drinks alcohol and denied any alcohol use to this fiction writer. Will follow up as needed. I spent _35 minutes with the patient and/or on the patient floor today, greater than?50% of which was spent counseling/coordinating care. PMFSH Past Medical History Medical History (Updated 07/11/21 @ 10:36 by Valente Oscar MD) Polysubstance abuse Family History Family History (Updated 07/11/21 @ 07:11 by Lisa Menard MD) Other No family history of coronary artery disease Surgical History Surgical History (Updated 07/11/21 @ 07:11 by Lisa Menard MD) No pertinent past surgical history Social History Social History (Updated 07/11/21 @ 07:11 by Lisa Menard MD) Household Members: None Housing: Apartment Do you presently have visiting nurse or other home services: No Unable to assess alcohol history related to: Unable to respond Patient Tobacco Use Status: Current everyday Tobacco user Tobacco use type: Cigarette Cigarette Packs Per Day: 1 Cigarettes Per Day: 20.0 e-Cigarette/Vaping Use: Currently Using Substance Use Type: Crack/Cocaine, Marijuana and Other service: No Current occupational status: unemployed
[2021-07-11] MEDS: Benzonatate 100 MG CAPSULE 200 MG PO (22:35)
[2021-07-11] MEDS: guaiFENesin DM 100/10/5 ML 5 ML SYRUP PO (22:36)
[2021-07-12] MEDS: cefTRIAXone sodium 1 GM in 0.9 % Sodium Chloride 50 ML IV (02:21)
[2021-07-12 03:31] VITALS: BP 140/64; PULSE 56; RESP 18; TEMP 37; O2SAT 96
[2021-07-12 06:08] LABS: Anion Gap 13 (12-20); Blood Urea Nitrogen 8 mg/dL (9-16); Calcium 8.9 mg/dL (8.4-10.2); Carbon Dioxide 21 mmol/L (22-29); Chloride 108 mmol/L (96-108); Creatinine Clr Calc Pharmacy 98.2; Estimated Glomerular Filt Rate > 60; Glucose Random 83 mg/dL (60-115); Potassium 3.6 mmol/L (3.3-5.1); Sodium 138 mmol/L (135-145)
[2021-07-12 07:59] VITALS: BP 135/78; PULSE 56; RESP 18; TEMP 36.9; O2SAT 97
--- NOTE | 2021-07-12 08:42 | HO.PM.IMPN ---
Subjective Subjective Date of Service: 07/12/21 Interval History: hospital with a transient confusion Review of Systems Mental status seems somewhat better than yesterday Denies any chest pain or shortness of breath abdominal pain or fever or chills or cough . Physical Exam Vital Signs: Vital Signs: Last Vital Signs Temp 98.5 F 07/12/21 07:59 Pulse 56 07/12/21 07:59 Resp 18 07/12/21 07:59 BP 135/78 07/12/21 07:59 Pulse Ox 97 07/12/21 07:59 BMI result Body Mass Index 28.3 Appearance: Alert.? Oriented X2-3 Eyes: Pupils equal, round and reactive to light.? Sclera nonicteric.? ENT: Pharynx normal.? Moist mucous membranes. cvs: rrr, [id number] , no murmur res: clear to auscultation ,no rhonchii or wheezing abd: no rebound or guarding ,nt, bs present. ext pulses present , no cyanosis ,Gait well balanced well coordinated. neuro: moves all ext, eomi ,prrela Objective Data Active Medications Acetaminophen (Acetaminophen 325 Mg Tablet) 650 mg PO Q6H PRN PRN Reason: Pain, Mild (Pain Scale 1-3) Benzonatate (Benzonatate 100 Mg Capsule) 200 mg PO TID PRN PRN Reason: cough Last Admin: 07/11/21 22:35 Dose: 200 mg Documented by: BALJEET Docusate Sodium (Docusate Sodium 100 Mg Capsule) 100 mg PO DAILY PRN PRN Reason: Constipation Enoxaparin Sodium (Enoxaparin Sodium 40 Mg/0.4 Ml Syringe) 40 mg SUBCUT Q24H [facility] Last Admin: 07/12/21 05:03 Dose: Not Given Documented by: BALJEET Non-Admin Reason: Patient Asleep Guaifenesin/Dextromethorphan (Guaifenesin Dm 100/10/5 Ml 5 Ml Syrup) 5 ml PO Q4H PRN PRN Reason: cough Last Admin: 07/11/21 22:36 Dose: 5 ml Documented by: BALJEET Ceftriaxone Sodium 1 gm/ (Sodium Chloride) 50 mls @ 100 mls/hr IV Q24H [facility] Last Infusion: 07/12/21 02:59 Dose: 0 mls/hr Documented by: BALJEET Ondansetron HCl (Ondansetron Hcl 4 Mg/2 Ml Vial) 4 mg IVPUSH Q8H PRN PRN Reason: Nausea and Vomiting Sodium Chloride (0.9 % Sodium Chloride Flush 3 Ml Syringe) 3 ml IVFLUSH QSHIFT [facility] Last Admin: 07/11/21 22:36 Dose: 3 ml Documented by: BALJEET Labs CBC & Chem 7: 07/11/21 05:53 07/12/21 05:18 Labs: Laboratory Results - last 24 hr 07/11/21 07/11/21 07/12/21 05:53 05:53 05:18 Anion Gap 13 Estim Creat Clear Calc 98.2 Estimated GFR > 60 Random Glucose 83 Calcium 8.9 Magnesium 1.6 Iron 20 L TIBC 388 % Saturation 5 L Unsat Iron Binding 368 Total Bilirubin 0.2 Direct Bilirubin < 0.2 AST 14 ALT 10 Alkaline Phosphatase 60 Total Protein 6.6 Albumin 3.5 Vitamin B12 315 Folate 12.3 Microbiology Microbiology Results: Microbiology 07/11/21 01:01 Blood Culture - Preliminary Blood - Venous No growth after 24 hours. 07/11/21 00:47 Blood Culture - Preliminary Blood - Venous No growth after 24 hours. Assessment and Plan (1) E. coli UTI (urinary tract infection): Status: Acute (2) Toxic encephalopathy: Status: Acute Plan ?46-year-old female with pulse of since abuse presents to the hospital with a transient confusion toxic metabolic encephalopathy- possibly secondary to polysubstance abuse slowly improving neurology evaluated her and MRI:possible related to polysubstance related . 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 Lovenox need for inapteint:toxic metabolic encephalopathy. Quality Stroke Does the patient have a stroke diagnosis?: No VTE Prior VTE?: No VTE Risk Level:: Medical - moderate - high VTE Device Contraindication: Treatment Not Indicated VTE Drug Contraindication: N/A - Med Ordered
[2021-07-12] MEDS: 0.9 % Sodium Chloride Flush 3 ML SYRINGE IVFLUSH ×3 (08:55→20:03)
[2021-07-12 12:00] VITALS: BP 130/60; PULSE 88; RESP 20; TEMP 36.8; O2SAT 98
[2021-07-12 15:14] VITALS: BP 127/61; PULSE 65; RESP 18; TEMP 36.4; O2SAT 95
[2021-07-12 20:00] VITALS: BP 127/66; PULSE 62; RESP 18; TEMP 36.4; O2SAT 95
[2021-07-12] MEDS: Thiamine HCL 100 MG TABLET PO (20:03)
[2021-07-12] MEDS: Multivitamin TABLET 1 TAB PO (20:03)
[2021-07-12 23:50] VITALS: BP 141/68; PULSE 50; RESP 17; TEMP 36.7; O2SAT 96
[2021-07-13] MEDS: cefTRIAXone sodium 1 GM in 0.9 % Sodium Chloride 50 ML IV (00:29)
[2021-07-13] MEDS: Enoxaparin Sodium 40 MG/0.4 ML SYRINGE SUBCUT (03:40)
[2021-07-13 04:00] VITALS: BP 132/56; PULSE 80; RESP 17; TEMP 36.7; O2SAT 95
[2021-07-13 07:05] VITALS: BP 146/89; PULSE 72; RESP 18; TEMP 36.4; O2SAT 94
[2021-07-13] MEDS: Docusate Sodium 100 MG CAPSULE PO (08:08)
[2021-07-13] MEDS: Omeprazole 20 MG CAPSULE.DR PO (08:08)
[2021-07-13] MEDS: polyethylene glycoL 3350 17 GM POWD.PACK PO (08:08)
[2021-07-13] MEDS: 0.9 % Sodium Chloride Flush 3 ML SYRINGE IVFLUSH ×3 (08:08→19:59)
[2021-07-13] MEDS: Ferrous Sulfate 300 MG/5 ML LIQUID PO ×2 (08:08→16:52)
[2021-07-13] MEDS: Thiamine HCL 100 MG TABLET PO (08:08)
[2021-07-13] MEDS: guaiFENesin DM 100/10/5 ML 5 ML SYRUP PO ×2 (08:12→16:52)
[2021-07-13] MEDS: Benzonatate 100 MG CAPSULE 200 MG PO ×2 (08:12→16:52)
[2021-07-13 11:46] VITALS: BP 127/64; PULSE 80; RESP 18; TEMP 36.7; O2SAT 95
--- NOTE | 2021-07-13 11:47 | HO.PM.IMPN ---
Subjective Subjective Date of Service: 07/13/21 Interval History: Encephalopathy possibly related to substance use. Review of Systems Patient mental status similar to yesterday Denies any chest pain orshortness of breath or abdominal pain or fever chills Physical Exam Vital Signs: Vital Signs: Last Vital Signs Temp 97.6 F 07/13/21 07:05 Pulse 72 07/13/21 07:05 Resp 18 07/13/21 07:05 BP 146/89 H 07/13/21 07:05 Pulse Ox 94 07/13/21 07:05 BMI result Body Mass Index 28.3 Appearance: Alert.? Oriented X2 cvs: rrr, [id number] , no murmur res: clear to auscultation ,no rhonchii or wheezing abd: no rebound or guarding ,nt, bs present. ext pulses present , no cyanosis neuro: moves all ext, eomi ,prrela Objective Data Active Medications Acetaminophen (Acetaminophen 325 Mg Tablet) 650 mg PO Q6H PRN PRN Reason: Pain, Mild (Pain Scale 1-3) Benzonatate (Benzonatate 100 Mg Capsule) 200 mg PO TID PRN PRN Reason: cough Last Admin: 07/13/21 08:12 Dose: 200 mg Documented by: COTEMA Docusate Sodium (Docusate Sodium 100 Mg Capsule) 100 mg PO DAILY [facility] Last Admin: 07/13/21 08:08 Dose: 100 mg Documented by: ROXANA Enoxaparin Sodium (Enoxaparin Sodium 40 Mg/0.4 Ml Syringe) 40 mg SUBCUT Q24H [facility] Last Admin: 07/13/21 03:40 Dose: 40 mg Documented by: CASTILM Ferrous Sulfate (Ferrous Sulfate 300 Mg/5 Ml Liquid) 300 mg PO BIDWM [facility] Last Admin: 07/13/21 08:08 Dose: 300 mg Documented by: COTEMA Guaifenesin/Dextromethorphan (Guaifenesin Dm 100/10/5 Ml 5 Ml Syrup) 5 ml PO Q4H PRN PRN Reason: cough Last Admin: 07/13/21 08:12 Dose: 5 ml Documented by: COTEMA Ceftriaxone Sodium 1 gm/ (Sodium Chloride) 50 mls @ 100 mls/hr IV Q24H [facility] Last Infusion: 07/13/21 01:05 Dose: 0 mls/hr Documented by: ALAN Multivitamins/Vitamin C (Multivitamin Tablet) 1 tab PO BEDTIME [facility] Last Admin: 07/12/21 20:03 Dose: 1 tab Documented by: ALAN Omeprazole (Omeprazole 20 Mg Capsule.) 20 mg PO DAILY@0630 [facility] Last Admin: 07/13/21 08:08 Dose: 20 mg Documented by: ROXANA Ondansetron HCl (Ondansetron Hcl 4 Mg/2 Ml Vial) 4 mg IVPUSH Q8H PRN PRN Reason: Nausea and Vomiting Polyethylene Glycol (Polyethylene Glycol 3350 17 Gm Powd.Pack) 17 gm PO DAILY [facility] Last Admin: 07/13/21 08:08 Dose: 17 gm Documented by: GILDAEMA Sodium Chloride (0.9 % Sodium Chloride Flush 3 Ml Syringe) 3 ml IVFLUSH QSHIFT [facility] Last Admin: 07/13/21 08:08 Dose: 3 ml Documented by: ROXANA Thiamine HCl (Thiamine Hcl 100 Mg Tablet) 100 mg PO DAILY [facility] Last Admin: 07/13/21 08:08 Dose: 100 mg Documented by: ROXANA Labs CBC & Chem 7: 07/11/21 05:53 07/12/21 05:18 Microbiology Microbiology Results: Microbiology 07/11/21 01:01 Blood Culture - Preliminary Blood - Venous No growth after 48 hours. 07/11/21 00:47 Blood Culture - Preliminary Blood - Venous No growth after 48 hours. 07/11/21 Unknown Urine Culture - Final Urine clean catch - Urine grant top Assessment and Plan (1) Toxic encephalopathy: Status: Acute (2) E. coli UTI (urinary tract infection): Status: Acute Plan 46-year-old female with pulse of since abuse presents to the hospital with a transient confusion toxic metabolic encephalopathy- possibly secondary to polysubstance abuse menatl status similar to yesterday neurology evaluated her and MRI:possible related to polysubstance related . - UDS is positive for cocaine, fentanyl and marijuana although patient adamantly denies using any illicit substance neurology follow up added PT/OT. 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 Lovenox need for inapteint:toxic metabolic encephalopathy. Quality Stroke Does the patient have a stroke diagnosis?: No VTE Prior VTE?: No VTE Risk Level:: Medical - moderate - high VTE Device Contraindication: Treatment Not Indicated VTE Drug Contraindication: N/A - Med Ordered
[2021-07-13 15:03] VITALS: BP 125/60; PULSE 90; RESP 17; TEMP 36.3; O2SAT 96
[2021-07-13 19:37] VITALS: BP 120/59; PULSE 68; RESP 17; TEMP 36.6; O2SAT 95
[2021-07-13] MEDS: Multivitamin TABLET 1 TAB PO (19:59)
[2021-07-14] VITALS (7 sets, daily range): BP systolic 121–134; BP diastolic 58–77; PULSE 54–82; RESP 16–18; TEMP 36.3–36.9; O2SAT 94–97
[2021-07-14] MEDS: cefTRIAXone sodium 1 GM in 0.9 % Sodium Chloride 50 ML IV (00:22)
[2021-07-14] MEDS: Enoxaparin Sodium 40 MG/0.4 ML SYRINGE SUBCUT (05:08)
[2021-07-14] MEDS: Omeprazole 20 MG CAPSULE.DR PO (05:08)
[2021-07-14] MEDS: Ferrous Sulfate 300 MG/5 ML LIQUID PO ×2 (09:06→17:54)
[2021-07-14] MEDS: Docusate Sodium 100 MG CAPSULE PO (09:07)
[2021-07-14] MEDS: polyethylene glycoL 3350 17 GM POWD.PACK PO (09:07)
[2021-07-14] MEDS: 0.9 % Sodium Chloride Flush 3 ML SYRINGE IVFLUSH ×3 (09:07→19:55)
[2021-07-14] MEDS: Thiamine HCL 100 MG TABLET PO (09:08)
--- NOTE | 2021-07-14 14:11 | MHC.CM.PN ---
NURSE SPORTS EDITOR NOTE ELECTRONIC MEDICAL RECORD REVIEWED ALONG WITH CASE DISCUSSED WITH STAFF NURSE and hopsitlsit evaluated by pt/ot discussed with pcp , will try to completed hcp[ today
--- NOTE | 2021-07-14 14:28 | P.PNIM_ITS ---
Subjective Subjective Date of Service: 07/14/21 Interval History: encephalopathy Review of Systems similar to yesterday Physical Exam Vital Signs: Vital Signs: Last Vital Signs Temp 98.1 F 07/14/21 11:34 Pulse 82 07/14/21 11:34 Resp 18 07/14/21 11:34 BP 121/77 07/14/21 11:34 Pulse Ox 94 07/14/21 11:34 BMI result Body Mass Index 28.3 ?Appearance: Alert.? Oriented X2 cvs: rrr, [id number] , no murmur res: clear to auscultation ,no rhonchii or wheezing abd: no rebound or guarding ,nt, bs present. ext pulses present , no cyanosis neuro: moves all ext, eomi ,prrela Objective Data Active Medications Acetaminophen (Acetaminophen 325 Mg Tablet) 650 mg PO Q6H PRN PRN Reason: Pain, Mild (Pain Scale 1-3) Benzonatate (Benzonatate 100 Mg Capsule) 200 mg PO TID PRN PRN Reason: cough Last Admin: 07/13/21 16:52 Dose: 200 mg Documented by: ROXANA Cefuroxime Axetil (Cefuroxime Axetil 250 Mg Tablet) 250 mg PO Q12H [facility] Last Admin: 07/14/21 09:07 Dose: 250 mg Documented by: IVANNA Docusate Sodium (Docusate Sodium 100 Mg Capsule) 100 mg PO DAILY [facility] Last Admin: 07/14/21 09:07 Dose: 100 mg Documented by: IVANNA Enoxaparin Sodium (Enoxaparin Sodium 40 Mg/0.4 Ml Syringe) 40 mg SUBCUT Q24H [facility] Last Admin: 07/14/21 05:08 Dose: 40 mg Documented by: IRIS Ferrous Sulfate (Ferrous Sulfate 300 Mg/5 Ml Liquid) 300 mg PO BIDWM [facility] Last Admin: 07/14/21 09:06 Dose: 300 mg Documented by: IVANNA Guaifenesin/Dextromethorphan (Guaifenesin Dm 100/10/5 Ml 5 Ml Syrup) 5 ml PO Q4H PRN PRN Reason: cough Last Admin: 07/13/21 16:52 Dose: 5 ml Documented by: ROXANA Multivitamins/Vitamin C (Multivitamin Tablet) 1 tab PO BEDTIME [facility] Last Admin: 07/13/21 19:59 Dose: 1 tab Documented by: IRIS Omeprazole (Omeprazole 20 Mg Capsule.Dr) 20 mg PO DAILY@0630 [facility] Last Admin: 07/14/21 05:08 Dose: 20 mg Documented by: IRIS Ondansetron HCl (Ondansetron Hcl 4 Mg/2 Ml Vial) 4 mg IVPUSH Q8H PRN PRN Reason: Nausea and Vomiting Polyethylene Glycol (Polyethylene Glycol 3350 17 Gm Powd.Pack) 17 gm PO DAILY [facility] Last Admin: 07/14/21 09:07 Dose: 17 gm Documented by: IVANNA Sodium Chloride (0.9 % Sodium Chloride Flush 3 Ml Syringe) 3 ml IVFLUSH QSHIFT [facility] Last Admin: 07/14/21 09:07 Dose: 3 ml Documented by: IVANNA Thiamine HCl (Thiamine Hcl 100 Mg Tablet) 100 mg PO DAILY [facility] Last Admin: 07/14/21 09:08 Dose: 100 mg Documented by: IVANNA Labs CBC & Chem 7: 07/11/21 05:53 07/12/21 05:18 Assessment and Plan (1) Anemia: Status: Acute (2) Toxic encephalopathy: Status: Acute (3) E. coli UTI (urinary tract infection): Status: Acute Plan 46-year-old female with pulse of since abuse presents to the hospital with a transient confusion toxic metabolic encephalopathy- possibly secondary to polysubstance abuse menatl status similar to yesterday neurology evaluated her and MRI:possible related to polysubstance related . - UDS is positive for cocaine, fentanyl and marijuana although patient adamantly denies using any illicit substance neurology follow up added PT/OT. 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 Lovenox need for inapteint:toxic metabolic encephalopathy. Seen by OT recommended 24 hour observation, called phone number available in the chart no family available. Quality Stroke Does the patient have a stroke diagnosis?: No VTE Prior VTE?: No VTE Risk Level:: Medical - moderate - high VTE Device Contraindication: Treatment Not Indicated VTE Drug Contraindication: N/A - Med Ordered
--- NOTE | 2021-07-14 15:32 | MHC.CM.PN ---
luis daniel grady case manger ntoe met with patient with another clinical case manager she understood wghta a health care proxy was and completed on original and copiers given to her and one placed in hard chart , junaid had pt and ot see humaira and he requested that i iniated referrals to short term rehab base on her current diagnosis these were iniated manager respiratory care to continue to follow her
[2021-07-14] MEDS: Multivitamin TABLET 1 TAB PO (19:55)
[2021-07-15] VITALS (7 sets, daily range): BP systolic 105–125; BP diastolic 55–75; PULSE 62–81; RESP 12–18; TEMP 36.4–37; O2SAT 93–97
[2021-07-15] MEDS: Omeprazole 20 MG CAPSULE.DR PO (05:22)
[2021-07-15] MEDS: Enoxaparin Sodium 40 MG/0.4 ML SYRINGE SUBCUT (05:23)
[2021-07-15] MEDS: Thiamine HCL 100 MG TABLET PO (08:23)
[2021-07-15] MEDS: 0.9 % Sodium Chloride Flush 3 ML SYRINGE IVFLUSH ×2 (08:23→16:19)
[2021-07-15] MEDS: polyethylene glycoL 3350 17 GM POWD.PACK PO (08:23)
[2021-07-15] MEDS: Ferrous Sulfate 300 MG/5 ML LIQUID PO ×2 (08:23→16:19)
[2021-07-15] MEDS: Docusate Sodium 100 MG CAPSULE PO (08:23)
--- NOTE | 2021-07-15 09:27 | P.PNIM_ITS ---
Subjective Subjective Date of Service: 07/15/21 Interval History: Follow-up on encephalopathy interval history: She seemed to be making progress. She is alert and oriented to herself aware that she is in the hospital at [place] she does have difficulty with the date she tells me some detail of her life including having a 17-year-old. Review of Systems Mild confused, no fever or chill Physical Exam Vital Signs: Vital Signs: Last Vital Signs Temp 98.2 F 07/15/21 07:52 Pulse 73 07/15/21 07:52 Resp 18 07/15/21 07:52 BP 119/67 07/15/21 07:52 Pulse Ox 96 07/15/21 07:52 BMI result Body Mass Index 28.3 Const: Other: General: AO to self and place off on a day, no acute distress Resp: CTA bilateral CVS: S1,S2,RRR GI: +BS, NT, no distention Skin: No rash Neuro: motor grossly intact Psych: appropriate affect Objective Data Active Medications Acetaminophen (Acetaminophen 325 Mg Tablet) 650 mg PO Q6H PRN PRN Reason: Pain, Mild (Pain Scale 1-3) Benzonatate (Benzonatate 100 Mg Capsule) 200 mg PO TID PRN PRN Reason: cough Last Admin: 07/13/21 16:52 Dose: 200 mg Documented by: ROXANA Cefuroxime Axetil (Cefuroxime Axetil 250 Mg Tablet) 250 mg PO Q12H [facility] Last Admin: 07/15/21 08:23 Dose: 250 mg Documented by: IVANNA Docusate Sodium (Docusate Sodium 100 Mg Capsule) 100 mg PO DAILY [facility] Last Admin: 07/15/21 08:23 Dose: 100 mg Documented by: IVANNA Enoxaparin Sodium (Enoxaparin Sodium 40 Mg/0.4 Ml Syringe) 40 mg SUBCUT Q24H [facility] Last Admin: 07/15/21 05:23 Dose: 40 mg Documented by: IRIS Ferrous Sulfate (Ferrous Sulfate 300 Mg/5 Ml Liquid) 300 mg PO BIDWM [facility] Last Admin: 07/15/21 08:23 Dose: 300 mg Documented by: IVANNA Guaifenesin/Dextromethorphan (Guaifenesin Dm 100/10/5 Ml 5 Ml Syrup) 5 ml PO Q4H PRN PRN Reason: cough Last Admin: 07/13/21 16:52 Dose: 5 ml Documented by: COTEMA Multivitamins/Vitamin C (Multivitamin Tablet) 1 tab PO BEDTIME [facility] Last Admin: 07/14/21 19:55 Dose: 1 tab Documented by: IRIS Omeprazole (Omeprazole 20 Mg Capsule.) 20 mg PO DAILY@0630 [facility] Last Admin: 07/15/21 05:22 Dose: 20 mg Documented by: IRIS Ondansetron HCl (Ondansetron Hcl 4 Mg/2 Ml Vial) 4 mg IVPUSH Q8H PRN PRN Reason: Nausea and Vomiting Polyethylene Glycol (Polyethylene Glycol 3350 17 Gm Powd.Pack) 17 gm PO DAILY [facility] Last Admin: 07/15/21 08:23 Dose: 17 gm Documented by: IVANNA Sodium Chloride (0.9 % Sodium Chloride Flush 3 Ml Syringe) 3 ml IVFLUSH QSHIFT [facility] Last Admin: 07/15/21 08:23 Dose: 3 ml Documented by: IVANNA Thiamine HCl (Thiamine Hcl 100 Mg Tablet) 100 mg PO DAILY [facility] Last Admin: 07/15/21 08:23 Dose: 100 mg Documented by: IVANNA Labs CBC & Chem 7: 07/11/21 05:53 07/12/21 05:18 Assessment and Plan (1) Anemia: Status: Acute (2) Toxic encephalopathy: Status: Acute (3) E. coli UTI (urinary tract infection): Status: Acute Plan 46-year-old female with pulse of since abuse presents to the hospital with a tra nsient confusion toxic metabolic encephalopathy- possibly secondary to polysubstance abuse or carbon monoxide toxicity urine toxicology was noted for for cocaine, fentanyl and marijuana although esthela hernandez adamantly denies using any illicit substance occupational therapy to continue to work with her and may be able to go home with good family support ?E coli UTI-- sensitive to ceftriaxone has been on ceftriaxone for 5 days now that should be sufficient she has no fever or chill and therefore discontinue antibiotics after today's dose. microcytic anemia chronic: H&H has been stable possible related to menses no further testing needed at this time. DVT prophylaxis:? Lovenox need for inapteint:toxic metabolic encephalopathy And awaiting safe disposition given that she would need 24 hour observation Quality Stroke Does the patient have a stroke diagnosis?: No VTE Prior VTE?: No VTE Risk Level:: Medical - moderate - high VTE Device Contraindication: Treatment Not Indicated VTE Drug Contraindication: N/A - Med Ordered
--- NOTE | 2021-07-15 13:43 | MHC.CM.PN ---
NURSE AUTOMOTIVE SERVICE PORTER NOTE MANY REFERRALS WERE MADE FOR SHORT TERM REHAB AND DECLINED, [facility] ARE FOLLOWING HER CLINICAL UPDATES GIVEN TO THEM TODAY , WHEN MERYL ARMEN CAME TO SEE PATIENT IT WAS SOME AGIO SHE IS MUCH MORE AWAKE AND ALERT , SHE CPMPLETED A HEALTH CARE PROXY NAMING HER FATHER JOHNATHAN [place] [address] [place] [phone] cell [place] HOME PHONE [phone]. THIS INFORMATION WAS GIVEN TO THE HOS[ITALSIT TODAY CALL FAMILY PLAN STR VS 24 HRS SUPERVIOSN AT HOME FOR PER OT. (COMPLETED MOCA W SCORE 16/30 DIFFICULTY WITH PROBLEM SOLVING, EXECUTATIVE FUNCTIONING AND RECAL ) DISCHAGRE PLAN STR [facility] -(CATHLEEN WYNNE HAMPDEN FOLLOWING ) QUANG SMITH TO COME TALK WITH HER AND POSSIBLE MERYL AYERS (POSITIVE DRUG TOXIC SCREEN ON ADMISSION) Cse manager sign to continue to follow this assembly instructions writer was able to reach patients father johnathan and spoke with him he will be coming in to see her and talk with the hospitlait today i informed hospitalist
--- NOTE | 2021-07-15 15:44 | P.EN_ITS ---
Event Note Date of Service: 07/15/21 Event Note: Addiction follow up: Requested to follow up with patient as mental status was reportedly improving. Upon arrival to patients room, patients mother was in room asking this wirter why patient was admitted as patient could not recall and tell her. This writer technical publications explained that attending provider would be notified of questions. Patient with somewhat flat affect. Long pauses before answering any questions, including how are you . Not appropriate to discuss substance use at this time.
[2021-07-15] MEDS: Multivitamin TABLET 1 TAB PO (21:49)
[2021-07-16] MEDS: 0.9 % Sodium Chloride Flush 3 ML SYRINGE IVFLUSH ×3 (01:53→18:08)
[2021-07-16 03:12] VITALS: BP 100/56; PULSE 64; RESP 15; TEMP 36.7; O2SAT 94
[2021-07-16] MEDS: Enoxaparin Sodium 40 MG/0.4 ML SYRINGE SUBCUT (05:30)
[2021-07-16] MEDS: Omeprazole 20 MG CAPSULE.DR PO (05:30)
[2021-07-16 07:49] VITALS: BP 103/63; PULSE 70; RESP 18; TEMP 36.9; O2SAT 93
[2021-07-16] MEDS: Docusate Sodium 100 MG CAPSULE PO (08:57)
[2021-07-16] MEDS: Ferrous Sulfate 300 MG/5 ML LIQUID PO ×2 (08:57→18:08)
[2021-07-16] MEDS: Thiamine HCL 100 MG TABLET PO (08:57)
[2021-07-16] MEDS: polyethylene glycoL 3350 17 GM POWD.PACK PO (08:57)
--- NOTE | 2021-07-16 09:47 | P.PNIM_ITS ---
Subjective Subjective Date of Service: 07/16/21 Interval History: Follow-up on encephalopathy ?interval history:? There is persistent confusion, but slightly better Review of Systems Mild confused, no fever or chill Physical Exam Vital Signs: Vital Signs: Last Vital Signs Temp 98.4 F 07/16/21 07:49 Pulse 70 07/16/21 07:49 Resp 18 07/16/21 07:49 BP 103/63 07/16/21 07:49 Pulse Ox 93 07/16/21 07:49 BMI result Body Mass Index 28.3 Const: Other: General: AO X 2 (Oriented to self and hospital), no acute distress Resp: CTA bilateral CVS: S1,S2,RRR GI: +BS, NT, no distention Skin: No rash Neuro: motor grossly intact Psych: appropriate affect Objective Data Active Medications Acetaminophen (Acetaminophen 325 Mg Tablet) 650 mg PO Q6H PRN PRN Reason: Pain, Mild (Pain Scale 1-3) Benzonatate (Benzonatate 100 Mg Capsule) 200 mg PO TID PRN PRN Reason: cough Last Admin: 07/13/21 16:52 Dose: 200 mg Documented by: ROXANA Cefuroxime Axetil (Cefuroxime Axetil 250 Mg Tablet) 250 mg PO Q12H [facility] Last Admin: 07/16/21 08:57 Dose: 250 mg Documented by: AZEEM Docusate Sodium (Docusate Sodium 100 Mg Capsule) 100 mg PO DAILY [facility] Last Admin: 07/16/21 08:57 Dose: 100 mg Documented by: AZEEM Enoxaparin Sodium (Enoxaparin Sodium 40 Mg/0.4 Ml Syringe) 40 mg SUBCUT Q24H [facility] Last Admin: 07/16/21 05:30 Dose: 40 mg Documented by: BALJEET Ferrous Sulfate (Ferrous Sulfate 300 Mg/5 Ml Liquid) 300 mg PO BIDWM [facility] Last Admin: 07/16/21 08:57 Dose: 300 mg Documented by: AZEEM Guaifenesin/Dextromethorphan (Guaifenesin Dm 100/10/5 Ml 5 Ml Syrup) 5 ml PO Q4H PRN PRN Reason: cough Last Admin: 07/13/21 16:52 Dose: 5 ml Documented by: ROXANA Multivitamins/Vitamin C (Multivitamin Tablet) 1 tab PO BEDTIME [facility] Last Admin: 07/15/21 21:49 Dose: 1 tab Documented by: BETZY Omeprazole (Omeprazole 20 Mg Jovani.) 20 mg PO DAILY@0630 [facility] Last Admin: 07/16/21 05:30 Dose: 20 mg Documented by: BALJEET Ondansetron HCl (Ondansetron Hcl 4 Mg/2 Ml Vial) 4 mg IVPUSH Q8H PRN PRN Reason: Nausea and Vomiting Polyethylene Glycol (Polyethylene Glycol 3350 17 Gm Powd.Pack) 17 gm PO DAILY [facility] Last Admin: 07/16/21 08:57 Dose: 17 gm Documented by: AZEEM Sodium Chloride (0.9 % Sodium Chloride Flush 3 Ml Syringe) 3 ml IVFLUSH QSHIFT [facility] Last Admin: 07/16/21 08:57 Dose: 3 ml Documented by: AZEEM Thiamine HCl (Thiamine Hcl 100 Mg Tablet) 100 mg PO DAILY [facility] Last Admin: 07/16/21 08:57 Dose: 100 mg Documented by: AZEEM Labs CBC & Chem 7: 07/11/21 05:53 07/12/21 05:18 Microbiology Microbiology Results: Microbiology 07/11/21 01:01 Blood Culture - Final Blood - Venous No growth after 5 days. 07/11/21 00:47 Blood Culture - Final Blood - Venous No growth after 5 days. Assessment and Plan (1) Anemia: Status: Acute (2) Toxic encephalopathy: Status: Acute (3) E. coli UTI (urinary tract infection): Status: Acute Plan A 46-year-old female with of substance abuse presents to the hospital with confusion #toxic metabolic encephalopathy- possibly secondary to polysubstance abuse or? carbon monoxide toxicity ?urine toxicology was noted for cocaine, fentanyl, and marijuana although the patient adamantly denies using any illicit substance ?occupational therapy to continue to work with her and may be able to go home? with good family support ?I spoke to her parents yesterday in the mid that she has had issues with substance abuse, they are unable to support her at this point and prefer she goes to a rehab #?E Coli UTI-- sensitive to ceftriaxone has been on ceftriaxone for 5 days now which should be sufficient she has no fever or chill and therefore discontinues antibiotics after today's dose. microcytic anemia chronic:? H&H has been stable possible related to menses no further testing is needed at this time. DVT prophylaxis:? Lovenox need for inpatient: toxic metabolic encephalopathy? And awaiting safe disposition given that? needs 24-hour observation Quality Stroke Does the patient have a stroke diagnosis?: No VTE Prior VTE?: No VTE Risk Level:: Medical - moderate - high VTE Device Contraindication: Treatment Not Indicated VTE Drug Contraindication: N/A - Med Ordered
[2021-07-16 11:27] VITALS: BP 96/62; PULSE 74; RESP 18; TEMP 36.3; O2SAT 94
--- NOTE | 2021-07-16 11:32 | MHC.CM.PN ---
STEPHEN received a call from Patient's Father/Jerardo @ [phone]. Jerardo wanted STEPHEN to be aware that he has contacted the [facility] in an attempt to get help getting Patient's Daughter, who is in the in [place] a [facility] for medical emergency. Jerardo states that he has give [facility] permission to cooperate with any requests from the [facility]. STEPHEN will follow.
--- NOTE | 2021-07-16 12:31 | MHC.CM.PN ---
STEPHEN attempted to return a call to Britt at the [facility] at [phone] Case Ref # [id number], but the [facility] needs to gather information regarding Diagnosis/Prognosis/present condition etc. from the MD. STEPHEN has relayed this information to Attending MD and will assist further as needed.
[2021-07-16 15:34] VITALS: BP 111/74; PULSE 71; RESP 18; TEMP 36.3; O2SAT 95
[2021-07-16 18:57] VITALS: BP 114/66; PULSE 80; RESP 18; TEMP 36.9; O2SAT 95
[2021-07-16] MEDS: Multivitamin TABLET 1 TAB PO (19:48)
[2021-07-16 23:28] VITALS: BP 112/66; PULSE 61; RESP 17; TEMP 36.6; O2SAT 95
[2021-07-17] MEDS: 0.9 % Sodium Chloride Flush 3 ML SYRINGE IVFLUSH (01:16)
[2021-07-17 03:25] VITALS: BP 122/59; PULSE 84; RESP 17; TEMP 36.3; O2SAT 95
[2021-07-17] MEDS: Omeprazole 20 MG CAPSULE.DR PO (05:45)
[2021-07-17] MEDS: Enoxaparin Sodium 40 MG/0.4 ML SYRINGE SUBCUT (05:45)
[2021-07-17 07:50] VITALS: BP 105/55; PULSE 73; RESP 18; TEMP 36.3; O2SAT 98
--- NOTE | 2021-07-17 08:42 | HO.PM.IMPN ---
Subjective Subjective Date of Service: 07/17/21 Interval History: Follow-up on encephalopathy ?interval history:? No change, confusion prsist Review of Systems Mild confused, no fever or chill Physical Exam Vital Signs: Vital Signs: Last Vital Signs Temp 97.3 F 07/17/21 07:50 Pulse 73 07/17/21 07:50 Resp 18 07/17/21 07:50 BP 105/55 L 07/17/21 07:50 Pulse Ox 98 07/17/21 07:50 BMI result Body Mass Index 28.3 Const: Other: General: AO X 2 (Oriented to self and hospital), no acute distress Resp: CTA bilateral CVS: S1,S2,RRR GI: +BS, NT, no distention Skin: No rash Neuro: motor grossly intact Psych: appropriate affect Objective Data Active Medications Acetaminophen (Acetaminophen 325 Mg Tablet) 650 mg PO Q6H PRN PRN Reason: Pain, Mild (Pain Scale 1-3) Benzonatate (Benzonatate 100 Mg Capsule) 200 mg PO TID PRN PRN Reason: cough Last Admin: 07/13/21 16:52 Dose: 200 mg Documented by: ROXANA Cefuroxime Axetil (Cefuroxime Axetil 250 Mg Tablet) 250 mg PO Q12H [facility] Last Admin: 07/16/21 19:48 Dose: 250 mg Documented by: BALJEET Docusate Sodium (Docusate Sodium 100 Mg Capsule) 100 mg PO DAILY [facility] Last Admin: 07/16/21 08:57 Dose: 100 mg Documented by: AZEEM Enoxaparin Sodium (Enoxaparin Sodium 40 Mg/0.4 Ml Syringe) 40 mg SUBCUT Q24H [facility] Last Admin: 07/17/21 05:45 Dose: 40 mg Documented by: BALJEET Ferrous Sulfate (Ferrous Sulfate 300 Mg/5 Ml Liquid) 300 mg PO BIDWM [facility] Last Admin: 07/16/21 18:08 Dose: 300 mg Documented by: AZEEM Guaifenesin/Dextromethorphan (Guaifenesin Dm 100/10/5 Ml 5 Ml Syrup) 5 ml PO Q4H PRN PRN Reason: cough Last Admin: 07/13/21 16:52 Dose: 5 ml Documented by: ROXANA Multivitamins/Vitamin C (Multivitamin Tablet) 1 tab PO BEDTIME [facility] Last Admin: 07/16/21 19:48 Dose: 1 tab Documented by: BALJEET Omeprazole (Omeprazole 20 Mg Jovani.) 20 mg PO DAILY@0630 [facility] Last Admin: 07/17/21 05:45 Dose: 20 mg Documented by: BALJEET Ondansetron HCl (Ondansetron Hcl 4 Mg/2 Ml Vial) 4 mg IVPUSH Q8H PRN PRN Reason: Nausea and Vomiting Polyethylene Glycol (Polyethylene Glycol 3350 17 Gm Powd.Pack) 17 gm PO DAILY [facility] Last Admin: 07/16/21 08:57 Dose: 17 gm Documented by: AZEEM Sodium Chloride (0.9 % Sodium Chloride Flush 3 Ml Syringe) 3 ml IVFLUSH QSHIFT [facility] Last Admin: 07/17/21 01:16 Dose: 3 ml Documented by: BALJEET Thiamine HCl (Thiamine Hcl 100 Mg Tablet) 100 mg PO DAILY [facility] Last Admin: 07/16/21 08:57 Dose: 100 mg Documented by: AZEEM Labs CBC & Chem 7: 07/11/21 05:53 07/12/21 05:18 Assessment and Plan (1) Toxic encephalopathy: Status: Acute Plan A 46-year-old female with of substance abuse presents to the hospital with confusion #toxic metabolic encephalopathy- possibly secondary to polysubstance abuse or? carbon monoxide toxicity ?urine toxicology was noted for cocaine, fentanyl, and marijuana although the patient adamantly denies using any illicit substance ?occupational therapy to continue to work with her and may be able to go home? with good family support ?I spoke to her parents yesterday in the mid that she has had issues with substance abuse, they are unable to support her at this point and prefer she goes to a rehab #?E Coli UTI-- sensitive to ceftriaxone has been on ceftriaxone for 5 days now which should be sufficient she has no fever or chill and therefore discontinues antibiotics after today's dose. microcytic anemia chronic:? H&H has been stable possible related to menses no further testing is needed at this time. DVT prophylaxis:? Lovenox need for inpatient: toxic metabolic encephalopathy? And awaiting safe disposition given that? she needs 24-hour observation. Family not able to care for her at home Quality Stroke Does the patient have a stroke diagnosis?: No VTE Prior VTE?: No VTE Risk Level:: Medical - moderate - high VTE Device Contraindication: Treatment Not Indicated VTE Drug Contraindication: N/A - Med Ordered
[2021-07-17] MEDS: Docusate Sodium 100 MG CAPSULE PO (10:33)
[2021-07-17] MEDS: Ferrous Sulfate 300 MG/5 ML LIQUID PO ×2 (10:33→16:11)
[2021-07-17] MEDS: Thiamine HCL 100 MG TABLET PO (10:33)
--- NOTE | 2021-07-17 11:37 | PC.NURSE ---
Patient with no IV access. Dr. Chino aware. OK to leave out.
[2021-07-17 12:00] VITALS: BP 105/60; PULSE 73; RESP 18; TEMP 36.4; O2SAT 95
[2021-07-17 15:12] VITALS: BP 112/70; PULSE 64; RESP 14; TEMP 36.9; O2SAT 95
[2021-07-17] MEDS: Multivitamin TABLET 1 TAB PO (19:56)
[2021-07-17 19:59] VITALS: BP 120/65; PULSE 70; RESP 14; TEMP 36.4; O2SAT 95
[2021-07-18] VITALS: BP 99/58; PULSE 70; RESP 14; TEMP 36.9; O2SAT 95
[2021-07-18 03:34] VITALS: BP 111/72; PULSE 81; RESP 14; TEMP 36.4; O2SAT 93
[2021-07-18] MEDS: Enoxaparin Sodium 40 MG/0.4 ML SYRINGE SUBCUT (05:20)
[2021-07-18] MEDS: Omeprazole 20 MG CAPSULE.DR PO (05:20)
[2021-07-18 07:36] VITALS: BP 91/61; PULSE 79; RESP 17; TEMP 36.4; O2SAT 94
[2021-07-18] MEDS: Thiamine HCL 100 MG TABLET PO (08:47)
[2021-07-18] MEDS: Docusate Sodium 100 MG CAPSULE PO (08:47)
[2021-07-18] MEDS: Ferrous Sulfate 300 MG/5 ML LIQUID PO ×2 (08:47→17:21)
[2021-07-18 11:31] VITALS: BP 120/76; PULSE 71; RESP 17; TEMP 36.1; O2SAT 94
--- NOTE | 2021-07-18 11:36 | HO.PM.IMPN ---
Subjective Subjective Date of Service: 07/18/21 Interval History: Follow-up on encephalopathy ?interval history:? No change, confusion prsist--sometime better, sometime worse Review of Systems Mild confused, no fever or chill Physical Exam Vital Signs: Vital Signs: Last Vital Signs Temp 96.9 F 07/18/21 11:31 Pulse 71 07/18/21 11:31 Resp 17 07/18/21 11:31 BP 120/76 07/18/21 11:31 Pulse Ox 94 07/18/21 11:31 BMI result Body Mass Index 28.3 Const: Other: General: AO X 2 (Oriented to self and hospital), no acute distress Resp: CTA bilateral CVS: S1,S2,RRR GI: +BS, NT, no distention Skin: No rash Neuro: motor grossly intact Psych: appropriate affect Objective Data Active Medications Acetaminophen (Acetaminophen 325 Mg Tablet) 650 mg PO Q6H PRN PRN Reason: Pain, Mild (Pain Scale 1-3) Benzonatate (Benzonatate 100 Mg Capsule) 200 mg PO TID PRN PRN Reason: cough Last Admin: 07/13/21 16:52 Dose: 200 mg Documented by: ROXANA Cefuroxime Axetil (Cefuroxime Axetil 250 Mg Tablet) 250 mg PO Q12H [facility] Last Admin: 07/18/21 08:47 Dose: 250 mg Documented by: RIKI Docusate Sodium (Docusate Sodium 100 Mg Capsule) 100 mg PO DAILY [facility] Last Admin: 07/18/21 08:47 Dose: 100 mg Documented by: RIKI Enoxaparin Sodium (Enoxaparin Sodium 40 Mg/0.4 Ml Syringe) 40 mg SUBCUT Q24H [facility] Last Admin: 07/18/21 05:20 Dose: 40 mg Documented by: JANENE Ferrous Sulfate (Ferrous Sulfate 300 Mg/5 Ml Liquid) 300 mg PO BIDWM [facility] Last Admin: 07/18/21 08:47 Dose: 300 mg Documented by: RIKI Guaifenesin/Dextromethorphan (Guaifenesin Dm 100/10/5 Ml 5 Ml Syrup) 5 ml PO Q4H PRN PRN Reason: cough Last Admin: 07/13/21 16:52 Dose: 5 ml Documented by: HO.COTEMA Multivitamins/Vitamin C (Multivitamin Tablet) 1 tab PO BEDTIME [facility] Last Admin: 07/17/21 19:56 Dose: 1 tab Documented by: JANENE Omeprazole (Omeprazole 20 Mg Capsule.) 20 mg PO DAILY@0630 [facility] Last Admin: 07/18/21 05:20 Dose: 20 mg Documented by: JANENE Ondansetron HCl (Ondansetron Hcl 4 Mg/2 Ml Vial) 4 mg IVPUSH Q8H PRN PRN Reason: Nausea and Vomiting Polyethylene Glycol (Polyethylene Glycol 3350 17 Gm Powd.Pack) 17 gm PO DAILY [facility] Last Admin: 07/18/21 08:49 Dose: Not Given Documented by: RIKI Non-Admin Reason: Patient Refused Sodium Chloride (0.9 % Sodium Chloride Flush 3 Ml Syringe) 3 ml IVFLUSH QSHIFT [facility] Last Admin: 07/18/21 08:49 Dose: Not Given Documented by: RIKI Non-Admin Reason: No Access Thiamine HCl (Thiamine Hcl 100 Mg Tablet) 100 mg PO DAILY [facility] Last Admin: 07/18/21 08:47 Dose: 100 mg Documented by: RIKI Labs CBC & Chem 7: 07/11/21 05:53 07/12/21 05:18 Assessment and Plan (1) Toxic encephalopathy: Status: Acute Plan A 46-year-old female with of substance abuse presents to the hospital with confusion #toxic metabolic encephalopathy- possibly secondary to polysubstance abuse or? carbon monoxide toxicity ?urine toxicology was noted for cocaine, fentanyl, and marijuana although the patient adamantly denies using any illicit substance ?occupational therapy to continue to work with her and may be able to go home? with good family support ?I spoke to her parents in the mid that she has had issues with substance abuse, they are unable to support her at this point and prefer she goes to a rehab Pych is assessing for capacity #?E Coli UTI-- Treated DVT prophylaxis:? Lovenox need for inpatient: toxic metabolic encephalopathy? And awaiting safe disposition given that? she needs 24-hour observation. Family not able to care for her at home Quality Stroke Does the patient have a stroke diagnosis?: No VTE Prior VTE?: No VTE Risk Level:: Medical - moderate - high VTE Device Contraindication: Treatment Not Indicated VTE Drug Contraindication: N/A - Med Ordered
--- NOTE | 2021-07-18 14:41 | P.CNPS_ITS ---
History of Present Illness Date of Service: 07/18/2021 Chief Complaint: UTI, encephalopathy Reason for Consult: capacity evaluation Requesting physician: Jimbo Chino Discussed with referring provider: Yes Sources of Information: patient interviewed and chart reviewed Additional Sources of Information: Father at [phone]. HPI Narrative: The patient is a 46-year-old female with PMH of polysubstance use disorder, presented to hospital with episode of confusion. She had called police because she could not unlock her phone. U tox positive for fentanyl, marijuana, cocaine. Patient had denied using any illicit substances at that time. Patient had recently been in D with a similar presentation, found to have a UTI, prescribed Bactrim but did not get the script or get the medication. Patient had reported in ED that she did not remember even coming to the hospital to be treated for the UTI. Patient has been admitted for further care and management. Addiction Service has met with patient, she has denied any substance use concerns. Neurology has seen patient, MRI brain has revealed widespread signal abnormalities, which suggested region for origin globus pallidus pathology most likely cocaine abuse. Collateral information obtained from father. He reports patient has had ongoing substance use disorder for past 25 years. 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 He states that she has since lost the apartment. He reports she has gone to several rehabs/residential treatment programs for substance use, lasting months at a time, in the past. He states that she has an 11-year-old daughter, who her mother has been raising since age 2 or 3, related to her ongoing substance use. OT had completed a MOCA on 07/15/2021, score 16/30, with difficulty with problem solving, executive function, recall. I met with patient two times today, 1st at 09:00, and again at 14:00. Both times, she appeared to be comfortable, in no apparent distress, reclined in bed. She was dressed in hospital garb, with appropriate grooming. Upon approach, she presented with flat,blunted affected. When asked how/why she is in the hospital, she replied ?I can not remember right now ?. When asked what type of treatment she has received here, she stated she ?I do not know ?. She answered questions as follows: Place: [facility]. Day: I think it is Wednesday . Date: ?I am not sure Month: July Year: 2019 Address: ?I do not know ?. Type of home: ?I live alone ?. Phone number: ?I feel like I should know it, but I do not ?. When asked how she gets food, she states that she drives to the grocery store and buys food. When asked how she pays her bills, she states that She uses her debit and pays bills. When asked about treatment options going forward and discharge plans, she states ?I do not know ?. When asked if she has children, she stated that she does. When asked how many, she reports that she has 3 children, ages 20, 22, 24. Her father later informed me that she has 6 children, the oldest age 27, and youngest age 11. He also stated that her mother has been raising her youngest since her daughter was age 3 or 3, due to her ongoing substance use. When this technical publications writer asked her about substance use, she denied. When asked specifically if she had used cocaine, she reported that she has, but it was only occasional use, and for short time. Patient continued to be vague historian, slow to respond, appearing confused. Past Psychiatric History: History of depression in the past, reports seeing a provider, does not remember if prescribed meds, or therapy. Father later reported several residential substance use programs. Medical Evaluation Reviewed: Yes Personal & Social History: Raised by both parents, who are now . Single. Has 6 children. 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 Had been living in an apartment until recently, has since lost apartment. Review of Systems Review of Systems Yes Unobtainable due to mental status [facility] Medical History Polysubstance abuse Surgical History No pertinent past surgical history Substance History: Ongoing multiple substances past 25 years Trauma History: Unknown Diagnostics Vital Signs (24Hr): Vital Signs - 24 hr 07/17/21 15:12 07/17/21 19:59 07/18/21 00:00 Temperature 98.4 F 97.6 F 98.5 F Pulse Rate 64 70 70 Respiratory Rate 14 14 14 Blood Pressure 112/70 120/65 99/58 L Pulse Oximetry 95 95 95 07/18/21 03:34 07/18/21 07:36 07/18/21 11:31 Temperature 97.6 F 97.6 F 96.9 F Pulse Rate 81 79 71 Respiratory Rate 14 17 17 Blood Pressure 111/72 91/61 120/76 Pulse Oximetry 93 94 94 BMI result Body Mass Index 28.3 Labs Results: 07/11/21 05:53 07/12/21 05:18 Imaging Radiology Impressions: ITS Impressions Head CT 07/11/21 02:42 IMPRESSION: Symmetric regions of of hypoattenuation in the globus pallidus, which appears slightly more prominent than on 07/06/2021. This appearance can be seen with carbon monoxide poisoning and may be further evaluated with MRI. This was discussed with Dr. Jaeger on 07/11/2021 3:22 AM. Chest X-Ray 07/11/21 02:45 IMPRESSION: No acute cardiopulmonary findings. Abdomen X-Ray 07/11/21 20:25 IMPRESSION: 1. No radiopaque foreign body. The patient is cleared for MRI. 2. Left renal upper pole 19 mm calculus, as on CT of 03/26/2017. Brain MRI 07/11/21 21:35 IMPRESSION: Expansile T2 signal changes involving the globus pallidus bilaterally associated with intermediate reduced diffusivity. There is also restricted diffusion within the hippocampi bilaterally and involving portions of the right and left caudate nucleus as well as bandlike T2 signal changes involving the cerebellar white matter bilaterally. Findings could be toxic/metabolic in etiology and should be correlated for any recent drug exposures, particularly fentanyl/opioid exposure given bilateral hippocampal involvement. Carbon monoxide toxicity can present with a subset of these findings. Infectious etiologies should be considered in the appropriate clinical context. Short-term follow-up inclusive of post contrast imaging would be helpful in further assessment. Mental Status Exam Mental Status Exam Narrative: Well-developed, well-nourished, in NAD. Reclining in bed, with head of bed elevated. Dressed in hospital garb. Ambulation not observed. Patient Appearance: Appropriate Patient Orientation: Person and Place Level of Consciousness: Awake Patient Behavior: Cooperative and Good Eye Contact Mood Description: Calm Affect Description: Blunted and Flat Patient Cognition Impaired: Yes Ability to Follow Directions: Fair Speech Pattern: Impoverished, Coherent, Soft-Spoken and Long Pauses Memory Description: Remote Impaired, Car Pick Up Driver Impaired, Recent Impaired and Working Impaired Hallucinations: None (did not appear to respond to any internal stimuli.) Delusions: Not Present Thought Process: Disoriented, Slowed Thinking and Confusion Thought Content: positive for [place], positive for Poverty of Content and positive for Slowed Thinking Judgement: Poor Medications Medications Current Medications Acetaminophen (Acetaminophen 325 Mg Tablet) 650 mg PO Q6H PRN PRN Reason: Pain, Mild (Pain Scale 1-3) Benzonatate (Benzonatate 100 Mg Capsule) 200 mg PO TID PRN PRN Reason: cough Last Admin: 07/13/21 16:52 Dose: 200 mg Documented by: Cefuroxime Axetil (Cefuroxime Axetil 250 Mg Tablet) 250 mg PO Q12H [facility] Last Admin: 07/18/21 08:47 Dose: 250 mg Documented by: Docusate Sodium (Docusate Sodium 100 Mg Capsule) 100 mg PO DAILY [facility] Last Admin: 07/18/21 08:47 Dose: 100 mg Documented by: Enoxaparin Sodium (Enoxaparin Sodium 40 Mg/0.4 Ml Syringe) 40 mg SUBCUT Q24H [facility] Last Admin: 07/18/21 05:20 Dose: 40 mg Documented by: Ferrous Sulfate (Ferrous Sulfate 300 Mg/5 Ml Liquid) 300 mg PO BIDWM [facility] Last Admin: 07/18/21 08:47 Dose: 300 mg Documented by: Guaifenesin/Dextromethorphan (Guaifenesin Dm 100/10/5 Ml 5 Ml Syrup) 5 ml PO Q4H PRN PRN Reason: cough Last Admin: 07/13/21 16:52 Dose: 5 ml Documented by: Multivitamins/Vitamin C (Multivitamin Tablet) 1 tab PO BEDTIME [facility] Last Admin: 07/17/21 19:56 Dose: 1 tab Documented by: Omeprazole (Omeprazole 20 Mg Capsule.Dr) 20 mg PO DAILY@0630 [facility] Last Admin: 07/18/21 05:20 Dose: 20 mg Documented by: Ondansetron HCl (Ondansetron Hcl 4 Mg/2 Ml Vial) 4 mg IVPUSH Q8H PRN PRN Reason: Nausea and Vomiting Polyethylene Glycol (Polyethylene Glycol 3350 17 Gm Powd.Pack) 17 gm PO DAILY [facility] Last Admin: 07/18/21 08:49 Dose: Not Given Documented by: Sodium Chloride (0.9 % Sodium Chloride Flush 3 Ml Syringe) 3 ml IVFLUSH QSHIFT [facility] Last Admin: 07/18/21 08:49 Dose: Not Given Documented by: Thiamine HCl (Thiamine Hcl 100 Mg Tablet) 100 mg PO DAILY [facility] Last Admin: 07/18/21 08:47 Dose: 100 mg Documented by: Allergies Allergies Allergy/AdvReac Type Severity Reaction Status Date / Time codeine [CODEINE] Allergy Severe ANAPHLAXIS Verified 01/27/21 10:00 Penicillins Allergy Severe HIVES Verified 01/27/21 10:00 penicillin V Allergy Unknown hives Verified 01/27/21 10:00 Assessment & Plan Assessment & Plan (1) Encounter for assessment of healthcare decision-making capacity: Status: Acute Code(s): Z02.79 - Encounter for issue of other medical certificate Assessment and Plan: Patient was unable to recall address, phone number, her current medical condi tion, treatment she has received here, any type of alternatives to treatment. She was unable to tell me how she arrived at the hospital, or when. She was unable to tell me correct year, or date. She was unable to tell me how many children she has (6), what type of work she does. She did states she has a history of depression, but denies any at this time. She did not appear to be psychotic in any way. Plan At this time, patient appears to lack capacity for decision making. She is unable to appreciate her current medical circumstance, and is therefore necessarily lacking in capacity to manage it. It is unclear at this time regarding prognosis, and if she congitively improves, capacity should be reassessed at a later date. 1. Recommend invoke healthcare proxy. This opinion has been shared with provider Dr. Jimbo Chino, as well as watch case polisher Ya Peña. I spent minutes with the patient and/or on the patient floor today, greater than?50% of which was spent counseling/coordinating care. Patient educated on: diagnosis and medical condition Informed Consent: does not understand and further education needed
--- NOTE | 2021-07-18 14:59 | MHC.CM.PN ---
Addendum entered by Ya Peña 07/18/21 15:38: late entry referral iniated for [facility] application [facility] names also given to [facility] contqct information as patient is currently not able to assist with this information pending psych competency eval and possiby envoking hcp Original Note: nurse case operator note electronic medical record reviewed , case discussed on multiple disciplianry rounds patient is recomended for ot retrainibg for cognitive funcrtuon reasoning referred to the three acute rehab , as no one accepting for str at this time , patie nt to be evaluated by psychiatry will be back gerard carlson;ater this after noon to talk with patient and parnets now ?competence and may envoke the health care proxy , also checked with gela sheridan and reported she spoke with kalyan fortune , patient may need competency eval after that psych should have some ideas on placement or referral case operator to continue to follow hc naming her father leida raymond [phone] or [phone] an d secondary her mother surjit marie [phone]
[2021-07-18 15:40] VITALS: BP 114/82; PULSE 75; RESP 17; TEMP 36.2; O2SAT 94
[2021-07-18 19:53] VITALS: BP 119/75; PULSE 74; RESP 17; TEMP 36.7; O2SAT 96
[2021-07-18] MEDS: Multivitamin TABLET 1 TAB PO (20:18)
[2021-07-19] VITALS (7 sets, daily range): BP systolic 100–113; BP diastolic 53–71; PULSE 71–89; RESP 17–18; TEMP 36.3–37.4; O2SAT 92–97
[2021-07-19] MEDS: Omeprazole 20 MG CAPSULE.DR PO (05:31)
[2021-07-19] MEDS: Enoxaparin Sodium 40 MG/0.4 ML SYRINGE SUBCUT (05:31)
[2021-07-19] MEDS: Thiamine HCL 100 MG TABLET PO (07:57)
[2021-07-19] MEDS: Docusate Sodium 100 MG CAPSULE PO (07:57)
[2021-07-19] MEDS: polyethylene glycoL 3350 17 GM POWD.PACK PO (07:57)
[2021-07-19] MEDS: Ferrous Sulfate 300 MG/5 ML LIQUID PO ×2 (07:57→16:36)
--- NOTE | 2021-07-19 08:50 | P.PNIM_ITS ---
Subjective Subjective Date of Service: 07/19/21 Interval History: Follow-up on encephalopathy ?interval history:? condition unchanged from yesterday Review of Systems Mild confusion, no fever or chill Physical Exam Vital Signs: Vital Signs: Last Vital Signs Temp 98 F 07/19/21 08:00 Pulse 89 07/19/21 08:00 Resp 17 07/19/21 08:00 BP 100/71 07/19/21 08:00 Pulse Ox 94 07/19/21 08:00 BMI result Body Mass Index 28.3 Const: Other: General: AO X 2 (Oriented to self and hospital), no acute distress Resp: CTA bilateral CVS: S1,S2,RRR GI: +BS, NT, no distention Skin: No rash Neuro: motor grossly intact Psych: appropriate affect Objective Data Active Medications Acetaminophen (Acetaminophen 325 Mg Tablet) 650 mg PO Q6H PRN PRN Reason: Pain, Mild (Pain Scale 1-3) Benzonatate (Benzonatate 100 Mg Capsule) 200 mg PO TID PRN PRN Reason: cough Last Admin: 07/13/21 16:52 Dose: 200 mg Documented by: ROXANA Cefuroxime Axetil (Cefuroxime Axetil 250 Mg Tablet) 250 mg PO Q12H [facility] Last Admin: 07/19/21 07:57 Dose: 250 mg Documented by: EVERARDO Docusate Sodium (Docusate Sodium 100 Mg Capsule) 100 mg PO DAILY [facility] Last Admin: 07/19/21 07:57 Dose: 100 mg Documented by: EVERARDO Enoxaparin Sodium (Enoxaparin Sodium 40 Mg/0.4 Ml Syringe) 40 mg SUBCUT Q24H [facility] Last Admin: 07/19/21 05:31 Dose: 40 mg Documented by: RONALDO Ferrous Sulfate (Ferrous Sulfate 300 Mg/5 Ml Liquid) 300 mg PO BIDWM [facility] Last Admin: 07/19/21 07:57 Dose: 300 mg Documented by: EVERARDO Guaifenesin/Dextromethorphan (Guaifenesin Dm 100/10/5 Ml 5 Ml Syrup) 5 ml PO Q4H PRN PRN Reason: cough Last Admin: 07/13/21 16:52 Dose: 5 ml Documented by: ROXANA Multivitamins/Vitamin C (Multivitamin Tablet) 1 tab PO BEDTIME [facility] Last Admin: 07/18/21 20:18 Dose: 1 tab Documented by: RONALDO Omeprazole (Omeprazole 20 Mg Jovani.) 20 mg PO DAILY@0630 [facility] Last Admin: 07/19/21 05:31 Dose: 20 mg Documented by: RONALDO Ondansetron HCl (Ondansetron Hcl 4 Mg/2 Ml Vial) 4 mg IVPUSH Q8H PRN PRN Reason: Nausea and Vomiting Polyethylene Glycol (Polyethylene Glycol 3350 17 Gm Powd.Pack) 17 gm PO DAILY [facility] Last Admin: 07/19/21 07:57 Dose: 17 gm Documented by: EVERARDO Sodium Chloride (0.9 % Sodium Chloride Flush 3 Ml Syringe) 3 ml IVFLUSH QSHIFT [facility] Last Admin: 07/19/21 07:57 Dose: Not Given Documented by: EVERARDO Non-Admin Reason: No Access Thiamine HCl (Thiamine Hcl 100 Mg Tablet) 100 mg PO DAILY [facility] Last Admin: 07/19/21 07:57 Dose: 100 mg Documented by: EVERARDO Labs CBC & Chem 7: 07/11/21 05:53 07/12/21 05:18 Assessment and Plan (1) Encounter for assessment of healthcare decision-making capacity: Status: Acute (2) Toxic encephalopathy: Status: Acute Plan A 46-year-old female with of substance abuse presents to the hospital with confusion #toxic metabolic encephalopathy- possibly secondary to polysubstance abuse and less liklely carbon monoxide toxicity ?urine toxicology was noted for cocaine, fentanyl, and marijuana although the patient adamantly denies using any illicit substance, her parents confirmed that she was actively using substances ?occupational therapy to continue to work with her and may be able to go home? with good family support ?I spoke to her parents in the mid that she has had issues with substance abuse, they are unable to support her at this point and prefer she goes to a rehab Pych has assessd her and she does not have capacity to make decisions, despite being oriented to self and place, she lacks insight , cannot recall her phone number, address or why she's here. At this point continues to need 24/7 supervision #?E Coli UTI-- Treated DVT prophylaxis:? Lovenox need for inpatient: toxic metabolic encephalopathy? And awaiting safe disposition given that? she needs 24-hour observation. Family not able to care for her at home Quality Stroke Does the patient have a stroke diagnosis?: No VTE Prior VTE?: No VTE Risk Level:: Medical - moderate - high VTE Device Contraindication: Treatment Not Indicated VTE Drug Contraindication: N/A - Med Ordered
[2021-07-19] MEDS: Multivitamin TABLET 1 TAB PO (21:14)
[2021-07-20 03:23] VITALS: BP 107/55; PULSE 73; RESP 18; TEMP 36.2; O2SAT 97
[2021-07-20] MEDS: Omeprazole 20 MG CAPSULE.DR PO (05:19)
[2021-07-20] MEDS: Enoxaparin Sodium 40 MG/0.4 ML SYRINGE SUBCUT (05:19)
[2021-07-20 08:00] VITALS: BP 105/66; PULSE 92; RESP 18; TEMP 37; O2SAT 93
--- NOTE | 2021-07-20 09:14 | P.PNIM_ITS ---
Subjective Subjective Date of Service: 07/20/21 Interval History: Follow-up on encephalopathy ?interval history:? remains confused with lack of insight Review of Systems Mild confusion, no fever or chill Physical Exam Vital Signs: Vital Signs: Last Vital Signs Temp 98.6 F 07/20/21 08:00 Pulse 92 07/20/21 08:00 Resp 18 07/20/21 08:00 BP 105/66 07/20/21 08:00 Pulse Ox 93 07/20/21 08:00 BMI result Body Mass Index 28.3 Const: Other: General: AO X 2 (Oriented to self and hospital), no acute distress Resp: CTA bilateral CVS: S1,S2,RRR GI: +BS, NT, no distention Skin: No rash Neuro: motor grossly intact Psych: appropriate affect Objective Data Active Medications Acetaminophen (Acetaminophen 325 Mg Tablet) 650 mg PO Q6H PRN PRN Reason: Pain, Mild (Pain Scale 1-3) Benzonatate (Benzonatate 100 Mg Capsule) 200 mg PO TID PRN PRN Reason: cough Last Admin: 07/13/21 16:52 Dose: 200 mg Documented by: ROXANA Cefuroxime Axetil (Cefuroxime Axetil 250 Mg Tablet) 250 mg PO Q12H [facility] Last Admin: 07/19/21 21:13 Dose: 250 mg Documented by: AREN Docusate Sodium (Docusate Sodium 100 Mg Capsule) 100 mg PO DAILY [facility] Last Admin: 07/19/21 07:57 Dose: 100 mg Documented by: EVERARDO Enoxaparin Sodium (Enoxaparin Sodium 40 Mg/0.4 Ml Syringe) 40 mg SUBCUT Q24H [facility] Last Admin: 07/20/21 05:19 Dose: 40 mg Documented by: AREN Ferrous Sulfate (Ferrous Sulfate 300 Mg/5 Ml Liquid) 300 mg PO BIDWM [facility] Last Admin: 07/19/21 16:36 Dose: 300 mg Documented by: EVERARDO Guaifenesin/Dextromethorphan (Guaifenesin Dm 100/10/5 Ml 5 Ml Syrup) 5 ml PO Q4H PRN PRN Reason: cough Last Admin: 07/13/21 16:52 Dose: 5 ml Documented by: GILDAEMA Multivitamins/Vitamin C (Multivitamin Tablet) 1 tab PO BEDTIME [facility] Last Admin: 07/19/21 21:14 Dose: 1 tab Documented by: AREN Omeprazole (Omeprazole 20 Mg Jovani.) 20 mg PO DAILY@0630 [facility] Last Admin: 07/20/21 05:19 Dose: 20 mg Documented by: AREN Ondansetron HCl (Ondansetron Hcl 4 Mg/2 Ml Vial) 4 mg IVPUSH Q8H PRN PRN Reason: Nausea and Vomiting Polyethylene Glycol (Polyethylene Glycol 3350 17 Gm Powd.Pack) 17 gm PO DAILY [facility] Last Admin: 07/19/21 07:57 Dose: 17 gm Documented by: EVERARDO Sodium Chloride (0.9 % Sodium Chloride Flush 3 Ml Syringe) 3 ml IVFLUSH QSHIFT [facility] Last Admin: 07/20/21 07:36 Dose: Not Given Documented by: ERICA Non-Admin Reason: No Access Thiamine HCl (Thiamine Hcl 100 Mg Tablet) 100 mg PO DAILY [facility] Last Admin: 07/19/21 07:57 Dose: 100 mg Documented by: EVERARDO Labs CBC & Chem 7: 07/11/21 05:53 07/12/21 05:18 Assessment and Plan (1) Toxic encephalopathy: Status: Acute (2) Encounter for assessment of healthcare decision-making capacity: Status: Acute Plan A 46-year-old female with of substance abuse presents to the hospital with confusion #toxic metabolic encephalopathy- possibly secondary to polysubstance abuse and less liklely carbon monoxide toxicity ?urine toxicology was noted for cocaine, fentanyl, and marijuana although the patient adamantly denies using any illicit substance, her parents confirmed that she was actively using substances ?occupational therapy to continue to work with her and may be able to go home? with good family support ?I spoke to her parents in the mid that she has had issues with substance abuse, they are unable to support her at this point and prefer she goes to a rehab Pych has assessd her and she does not have capacity to make decisions, despite being oriented to self and place, she lacks insight , cannot recall her phone number, address or why she's here. At this point continues to need 24/7 supervision #?E Coli UTI-- completed course of Abx DVT prophylaxis:? Lovenox need for inpatient: toxic metabolic encephalopathy? And awaiting safe disposition given that? she needs 24-hour observation. Family not able to care for her at home Quality Stroke Does the patient have a stroke diagnosis?: No VTE Prior VTE?: No VTE Risk Level:: Medical - moderate - high VTE Device Contraindication: Treatment Not Indicated VTE Drug Contraindication: N/A - Med Ordered
[2021-07-20] MEDS: Ferrous Sulfate 300 MG/5 ML LIQUID PO ×2 (09:22→17:15)
[2021-07-20] MEDS: Thiamine HCL 100 MG TABLET PO (09:22)
[2021-07-20] MEDS: Docusate Sodium 100 MG CAPSULE PO (09:22)
[2021-07-20] MEDS: polyethylene glycoL 3350 17 GM POWD.PACK PO (09:25)
[2021-07-20 12:00] VITALS: BP 102/73; PULSE 74; RESP 18; TEMP 37.2; O2SAT 95
[2021-07-20 15:16] VITALS: BP 119/69; PULSE 79; RESP 18; TEMP 36.1; O2SAT 96
[2021-07-20 19:25] VITALS: BP 113/68; PULSE 76; RESP 18; TEMP 36.3; O2SAT 95
[2021-07-20] MEDS: Multivitamin TABLET 1 TAB PO (20:57)
[2021-07-20 23:27] VITALS: BP 119/62; PULSE 70; RESP 16; TEMP 36.8; O2SAT 94
[2021-07-21 03:44] VITALS: BP 99/56; PULSE 85; RESP 18; TEMP 36.5; O2SAT 94
[2021-07-21] MEDS: Enoxaparin Sodium 40 MG/0.4 ML SYRINGE SUBCUT (04:33)
[2021-07-21] MEDS: Omeprazole 20 MG CAPSULE.DR PO (06:05)
[2021-07-21 07:24] VITALS: BP 102/58; PULSE 77; RESP 18; TEMP 36.3; O2SAT 96
--- NOTE | 2021-07-21 08:39 | P.PNIM_ITS ---
Subjective Subjective Date of Service: 07/22/21 Interval History: Follow-up on encephalopathy ?interval history:? no new issues Review of Systems Mild confusion, no fever or chill Physical Exam Vital Signs: Vital Signs: Last Vital Signs Temp 97.4 F 07/21/21 07:24 Pulse 77 07/21/21 07:24 Resp 18 07/21/21 07:24 BP 102/58 L 07/21/21 07:24 Pulse Ox 96 07/21/21 07:24 BMI result Body Mass Index 28.3 Const: Other: General: AO X 2 (Oriented to self and hospital), no acute distress Resp: CTA bilateral CVS: S1,S2,RRR GI: +BS, NT, no distention Skin: No rash Neuro: motor grossly intact Psych: appropriate affect Objective Data Active Medications Acetaminophen (Acetaminophen 325 Mg Tablet) 650 mg PO Q6H PRN PRN Reason: Pain, Mild (Pain Scale 1-3) Benzonatate (Benzonatate 100 Mg Capsule) 200 mg PO TID PRN PRN Reason: cough Last Admin: 07/13/21 16:52 Dose: 200 mg Documented by: ROXANA Docusate Sodium (Docusate Sodium 100 Mg Capsule) 100 mg PO DAILY [facility] Last Admin: 07/20/21 09:22 Dose: 100 mg Documented by: ERICA Enoxaparin Sodium (Enoxaparin Sodium 40 Mg/0.4 Ml Syringe) 40 mg SUBCUT Q24H [facility] Last Admin: 07/21/21 04:33 Dose: 40 mg Documented by: XIN Ferrous Sulfate (Ferrous Sulfate 300 Mg/5 Ml Liquid) 300 mg PO BIDWM [facility] Last Admin: 07/20/21 17:15 Dose: 300 mg Documented by: BETZY Guaifenesin/Dextromethorphan (Guaifenesin Dm 200/20/10 Ml 10 Ml Syrup) 5 ml PO Q4H PRN PRN Reason: cough Multivitamins/Vitamin C (Multivitamin Tablet) 1 tab PO BEDTIME [facility] Last Admin: 07/20/21 20:57 Dose: 1 tab Documented by: BETZY Omeprazole (Omeprazole 20 Mg Capsule.) 20 mg PO DAILY@0630 [facility] Last Admin: 07/21/21 06:05 Dose: 20 mg Documented by: XIN Ondansetron HCl (Ondansetron Hcl 4 Mg/2 Ml Vial) 4 mg IVPUSH Q8H PRN PRN Reason: Nausea and Vomiting Polyethylene Glycol (Polyethylene Glycol 3350 17 Gm Powd.Pack) 17 gm PO DAILY [facility] Last Admin: 07/20/21 09:25 Dose: 17 gm Documented by: ERICA Sodium Chloride (0.9 % Sodium Chloride Flush 3 Ml Syringe) 3 ml IVFLUSH QSHIFT [facility] Last Admin: 07/21/21 01:27 Dose: Not Given Documented by: XIN Non-Admin Reason: No Access Thiamine HCl (Thiamine Hcl 100 Mg Tablet) 100 mg PO DAILY [facility] Last Admin: 07/20/21 09:22 Dose: 100 mg Documented by: ERICA Labs CBC & Chem 7: 07/11/21 05:53 07/12/21 05:18 Assessment and Plan (1) Toxic encephalopathy: Status: Acute (2) Encounter for assessment of healthcare decision-making capacity: Status: Acute Plan A 46-year-old female with of substance abuse presents to the hospital with confusion #toxic metabolic encephalopathy- possibly secondary to polysubstance abuse and less liklely carbon monoxide toxicity ?urine toxicology was noted for cocaine, fentanyl, and marijuana although the patient adamantly denies using any illicit substance, her parents confirmed that she was actively using substances ?occupational therapy to continue to work with her and may be able to go home? with good family support ?I spoke to her parents in the mid that she has had issues with substance abuse, they are unable to support her at this point and prefer she goes to a rehab Pych has assessd her and she does not have capacity to make decisions, despite being oriented to self and place, she lacks insight , cannot recall her phone number, address or why she's here. At this point continues to need 24/7 supervision #?E Coli UTI-- completed course of Abx DVT prophylaxis:? Lovenox need for inpatient: toxic metabolic encephalopathy? And awaiting safe disposition given that? she needs 24-hour observation. Family not able to care for her at home Quality Stroke Does the patient have a stroke diagnosis?: No VTE Prior VTE?: No VTE Risk Level:: Medical - moderate - high VTE Device Contraindication: Treatment Not Indicated VTE Drug Contraindication: N/A - Med Ordered
[2021-07-21] MEDS: Docusate Sodium 100 MG CAPSULE PO (09:15)
[2021-07-21] MEDS: Ferrous Sulfate 300 MG/5 ML LIQUID PO ×2 (09:15→18:07)
[2021-07-21] MEDS: Thiamine HCL 100 MG TABLET PO (09:15)
[2021-07-21] MEDS: polyethylene glycoL 3350 17 GM POWD.PACK PO (09:15)
[2021-07-21] MEDS: 0.9 % Sodium Chloride Flush 3 ML SYRINGE IVFLUSH (09:20)
[2021-07-21 15:06] VITALS: BP 116/75; PULSE 74; RESP 18; TEMP 36.9; O2SAT 93
[2021-07-21 20:00] VITALS: BP 115/68; PULSE 67; RESP 18; TEMP 36.9; O2SAT 95
[2021-07-21] MEDS: Multivitamin TABLET 1 TAB PO (20:37)
[2021-07-21 23:29] VITALS: BP 119/62; PULSE 78; RESP 18; TEMP 36.5; O2SAT 95
[2021-07-22 03:52] VITALS: BP 108/72; PULSE 73; RESP 15; TEMP 36.6; O2SAT 95
[2021-07-22] MEDS: Enoxaparin Sodium 40 MG/0.4 ML SYRINGE SUBCUT (04:29)
[2021-07-22] MEDS: Omeprazole 20 MG CAPSULE.DR PO (06:04)
[2021-07-22 07:03] VITALS: BP 100/63; PULSE 71; RESP 16; TEMP 36.8; O2SAT 97
--- NOTE | 2021-07-22 08:19 | P.PNIM_ITS ---
Subjective Subjective Date of Service: 07/22/21 Interval History: Follow-up on encephalopathy ?interval history:? no new issues, oriented to self place, and can look on board and tell date.. Review of Systems Mild confusion, no fever or chill Physical Exam Vital Signs: Vital Signs: Last Vital Signs Temp 98.2 F 07/22/21 07:03 Pulse 71 07/22/21 07:03 Resp 16 07/22/21 07:03 BP 100/63 07/22/21 07:03 Pulse Ox 97 07/22/21 07:03 BMI result Body Mass Index 28.3 Const: Other: General: AO X 2 (Oriented to self and hospital), no acute distress Resp: CTA bilateral CVS: S1,S2,RRR GI: +BS, NT, no distention Skin: No rash Neuro: motor grossly intact Psych: appropriate affect Objective Data Active Medications Acetaminophen (Acetaminophen 325 Mg Tablet) 650 mg PO Q6H PRN PRN Reason: Pain, Mild (Pain Scale 1-3) Benzonatate (Benzonatate 100 Mg Capsule) 200 mg PO TID PRN PRN Reason: cough Last Admin: 07/13/21 16:52 Dose: 200 mg Documented by: COTMARCIE Docusate Sodium (Docusate Sodium 100 Mg Capsule) 100 mg PO DAILY [facility] Last Admin: 07/21/21 09:15 Dose: 100 mg Documented by: JAX Enoxaparin Sodium (Enoxaparin Sodium 40 Mg/0.4 Ml Syringe) 40 mg SUBCUT Q24H [facility] Last Admin: 07/22/21 04:29 Dose: 40 mg Documented by: XIN Ferrous Sulfate (Ferrous Sulfate 300 Mg/5 Ml Liquid) 300 mg PO BIDWM [facility] Last Admin: 07/21/21 18:07 Dose: 300 mg Documented by: TONO Guaifenesin/Dextromethorphan (Guaifenesin Dm 200/20/10 Ml 10 Ml Syrup) 5 ml PO Q4H PRN PRN Reason: cough Multivitamins/Vitamin C (Multivitamin Tablet) 1 tab PO BEDTIME [facility] Last Admin: 07/21/21 20:37 Dose: 1 tab Documented by: TONO Omeprazole (Omeprazole 20 Mg Jovani.) 20 mg PO DAILY@0630 [facility] Last Admin: 07/22/21 06:04 Dose: 20 mg Documented by: XIN Ondansetron HCl (Ondansetron Hcl 4 Mg/2 Ml Vial) 4 mg IVPUSH Q8H PRN PRN Reason: Nausea and Vomiting Polyethylene Glycol (Polyethylene Glycol 3350 17 Gm Powd.Pack) 17 gm PO DAILY [facility] Last Admin: 07/21/21 09:15 Dose: 17 gm Documented by: JAX Sodium Chloride (0.9 % Sodium Chloride Flush 3 Ml Syringe) 3 ml IVFLUSH QSHIFT [facility] Last Admin: 07/21/21 23:57 Dose: Not Given Documented by: XIN Non-Admin Reason: No Access Thiamine HCl (Thiamine Hcl 100 Mg Tablet) 100 mg PO DAILY [facility] Last Admin: 07/21/21 09:15 Dose: 100 mg Documented by: JAX Labs CBC & Chem 7: 07/11/21 05:53 07/12/21 05:18 Assessment and Plan (1) Toxic encephalopathy: Status: Acute (2) Encounter for assessment of healthcare decision-making capacity: Status: Acute Plan A 46-year-old female with of substance abuse presents to the hospital with confusion essentially no change as of yesterday #toxic metabolic encephalopathy- possibly secondary to polysubstance abuse and less liklely carbon monoxide toxicity ?urine toxicology was noted for cocaine, fentanyl, and marijuana although the patient adamantly denies using any illicit substance, her parents confirmed that she was actively using substances ?occupational therapy to continue to work with her and may be able to go home? with good family support ?I spoke to her parents in the mid that she has had issues with substance abuse, they are unable to support her at this point and prefer she goes to a rehab Pych has assessd her and she does not have capacity to make decisions, despite being oriented to self and place, she lacks insight , cannot recall her phone number, address or why she's here. At this point continues to need 24/7 supervision #?E Coli UTI-- completed course of Abx DVT prophylaxis:? Lovenox need for inpatient: toxic metabolic encephalopathy? And awaiting safe disposition given that? she needs 24-hour observation. Family not able to care for her at home Quality Stroke Does the patient have a stroke diagnosis?: No VTE Prior VTE?: No VTE Risk Level:: Medical - moderate - high VTE Device Contraindication: Treatment Not Indicated VTE Drug Contraindication: N/A - Med Ordered
[2021-07-22 11:25] VITALS: BP 112/74; PULSE 78; RESP 16; TEMP 36.9; O2SAT 94
[2021-07-22] MEDS: Ferrous Sulfate 300 MG/5 ML LIQUID PO ×2 (11:32→18:03)
[2021-07-22] MEDS: Thiamine HCL 100 MG TABLET PO (11:32)
[2021-07-22 15:19] VITALS: BP 109/70; PULSE 71; RESP 20; TEMP 36.7; O2SAT 95
--- NOTE | 2021-07-22 16:33 | MHC.CM.PN ---
nurse caseworker protective services note electronic medical record reviewed along with case discussed with [facility] nurse and the hospitalist . met with patient today alert to name and checks white boarsd for date and she new she qas in the hospitla but did not know which one. staff encouraging to get up out of bed and into recliner and ambulate with staffoccupational therapist left coloring books for her . met with mother and father ( patient demmed incapaciteated to make her own medical decisions , both parents are her health care proxy. discharge plan 1, str vs ltc more referrals sent out [facility] . [facility] was then connected to neurologist whom spoke with him about patients present condition [facility] (plan is to get her into str [facility] explained to pRENTS THEY NEED TO SEK POWER OF LEATHER [employer] FOR [employer] MANAGER MEGAN WHEELER TO FOLLOW
[2021-07-22 19:35] VITALS: BP 110/75; PULSE 79; RESP 18; TEMP 36.6; O2SAT 97
[2021-07-22] MEDS: Multivitamin TABLET 1 TAB PO (19:49)
[2021-07-22 23:14] VITALS: BP 111/73; PULSE 73; RESP 16; TEMP 36.4; O2SAT 94
[2021-07-23 03:35] VITALS: BP 107/61; PULSE 74; RESP 16; TEMP 36.6; O2SAT 92
[2021-07-23] MEDS: Omeprazole 20 MG CAPSULE.DR PO (05:30)
[2021-07-23] MEDS: Enoxaparin Sodium 40 MG/0.4 ML SYRINGE SUBCUT (05:30)
[2021-07-23 08:00] VITALS: BP 96/62; PULSE 70; RESP 18; TEMP 36.6; O2SAT 95
--- NOTE | 2021-07-23 08:47 | P.PNIM_ITS ---
Subjective Subjective Date of Service: 07/23/21 Interval History: Follow-up on encephalopathy ?interval history:? I sense that she is doing better, she is alert and oriented to self place and time, and recalls her [place] [address] [place] Review of Systems no fever, past mem issues Physical Exam Vital Signs: Vital Signs: Last Vital Signs Temp 97.8 F 07/23/21 08:00 Pulse 70 07/23/21 08:00 Resp 18 07/23/21 08:00 BP 96/62 07/23/21 08:00 Pulse Ox 95 07/23/21 08:00 BMI result Body Mass Index 28.3 Const: Other: General: AO X 2 (Oriented to self and hospital), no acute distress Resp: CTA bilateral CVS: S1,S2,RRR GI: +BS, NT, no distention Skin: No rash Neuro: motor grossly intact Psych: appropriate affect Objective Data Active Medications Acetaminophen (Acetaminophen 325 Mg Tablet) 650 mg PO Q6H PRN PRN Reason: Pain, Mild (Pain Scale 1-3) Benzonatate (Benzonatate 100 Mg Capsule) 200 mg PO TID PRN PRN Reason: cough Last Admin: 07/13/21 16:52 Dose: 200 mg Documented by: ROXANA Docusate Sodium (Docusate Sodium 100 Mg Capsule) 100 mg PO DAILY [facility] Last Admin: 07/22/21 11:32 Dose: Not Given Documented by: IVANNA Non-Admin Reason: Patient Refused Enoxaparin Sodium (Enoxaparin Sodium 40 Mg/0.4 Ml Syringe) 40 mg SUBCUT Q24H [facility] Last Admin: 07/23/21 05:30 Dose: 40 mg Documented by: JANENE Ferrous Sulfate (Ferrous Sulfate 300 Mg/5 Ml Liquid) 300 mg PO BIDWM [facility] Last Admin: 07/22/21 18:03 Dose: 300 mg Documented by: IVANNA Guaifenesin/Dextromethorphan (Guaifenesin Dm 200/20/10 Ml 10 Ml Syrup) 5 ml PO Q4H PRN PRN Reason: cough Multivitamins/Vitamin C (Multivitamin Tablet) 1 tab PO BEDTIME [facility] Last Admin: 07/22/21 19:49 Dose: 1 tab Documented by: JANENE Omeprazole (Omeprazole 20 Mg Capsule.) 20 mg PO DAILY@0630 [facility] Last Admin: 07/23/21 05:30 Dose: 20 mg Documented by: JANENE Ondansetron HCl (Ondansetron Hcl 4 Mg/2 Ml Vial) 4 mg IVPUSH Q8H PRN PRN Reason: Nausea and Vomiting Polyethylene Glycol (Polyethylene Glycol 3350 17 Gm Powd.Pack) 17 gm PO DAILY [facility] Last Admin: 07/22/21 11:32 Dose: Not Given Documented by: IVANNA Non-Admin Reason: Patient Refused Sodium Chloride (0.9 % Sodium Chloride Flush 3 Ml Syringe) 3 ml IVFLUSH QSHIFT [facility] Last Admin: 07/22/21 19:49 Dose: Not Given Documented by: JANENE Non-Admin Reason: No Access Thiamine HCl (Thiamine Hcl 100 Mg Tablet) 100 mg PO DAILY [facility] Last Admin: 07/22/21 11:32 Dose: 100 mg Documented by: IVANNA Labs CBC & Chem 7: 07/11/21 05:53 07/12/21 05:18 Assessment and Plan (1) Toxic encephalopathy: Status: Acute (2) Encounter for assessment of healthcare decision-making capacity: Status: Acute Plan A 46-year-old female with of substance abuse presents to the hospital with confusion essentially no change as of yesterday #Toxic metabolic encephalopathy- suspected secondary to polysubstance abuse and less liklely carbon monoxide toxicity ?urine toxicology was noted for cocaine, fentanyl, and marijuana although the patient adamantly denies using any illicit substance, her parents confirmed that she was actively using substances OT has worked with her with concern that she needs 24/7 supervision ?Discussed with her parents who admit that she had issues with substance abuse, they are unable to provide dwelling for her at this point and prefer she goes to a rehab Pych has assessd her and she does not have capacity to make decisions during their last visit, however it appears that she continues to improve and will ask Psych to reassess her #?E Coli UTI-- completed course of Abx DVT prophylaxis:? Lovenox need for inpatient: toxic metabolic encephalopathy? And awaiting safe disposition given that? she needs 24-hour observation. Family not able to care for her at home Quality Stroke Does the patient have a stroke diagnosis?: No VTE Prior VTE?: No VTE Risk Level:: Medical - moderate - high VTE Device Contraindication: Treatment Not Indicated VTE Drug Contraindication: N/A - Med Ordered
[2021-07-23] MEDS: Docusate Sodium 100 MG CAPSULE PO (10:30)
[2021-07-23] MEDS: Ferrous Sulfate 300 MG/5 ML LIQUID PO ×2 (10:31→19:13)
[2021-07-23] MEDS: Thiamine HCL 100 MG TABLET PO (10:31)
[2021-07-23] MEDS: polyethylene glycoL 3350 17 GM POWD.PACK PO (10:31)
[2021-07-23 11:35] VITALS: BP 108/63; PULSE 75; RESP 16; TEMP 36.4; O2SAT 97
--- NOTE | 2021-07-23 13:37 | MHC.CM.PN ---
EMR REVIEWED, AILYN MET W/PT AND REPORTED TO CM THAT PT COULD NOT ANSWER QUESTIONS AND DOES NOT KNOW WHERE SHE LIVES AND THINKS SHE WILL GO HOME AND BE WITH HER FAMILY HOWEVER PT HAS BEEN LIVING ALONE IN A 2 ROOM EFFICIENCY, CM CONTACTED PT'S FATHER JOHNATHAN AT 12:45PM AND HE VERIFIED THAT PT'S TWO CHILDREN IN THE ARE HOME ON LEAVE HOWEVER THERE ARE STILL NO FAMILY MEMBERS WHO COULD CARE FOR PT, JOHNATHAN ALSO CONFIRMS THEY ARE IN PROCESS OF MOVING PT'S BELONGINGS FROM HER EFFICIENCY APT SHE HAS NOT BEEN PAYING RENT. CM HAS EXPANDED SNF REFERRAL TO [facility] [address] [facility], NO BED OFFERS AT TIME OF THIS NOTE.
[2021-07-23 15:27] VITALS: BP 98/64; PULSE 80; RESP 18; TEMP 37.2; O2SAT 96
--- NOTE | 2021-07-23 15:27 | P.CNPS_ITS ---
History of Present Illness Date of Service: 07/23/2021 Chief Complaint: UTI, encephalopathy Reason for Consult: capacity evaluation Requesting physician: [facility] Sources of Information: patient interviewed, chart reviewed and crisis/core team assessment reviewed HPI Narrative: Patient is a 46-year-old female with PMH of polysubstance use, presented to hospital with episode of confusion. I met with her recently, and it was determined that she lack capacity at this time. I met with her again today to reassess. Patient was resting in bed, watching television. Presented with flat affect. She was cooperative, and agreeable to meeting with me. Vague, slow to respond. When asked if she knew where she was, she stated [facility] . She was able to tell me that she was in [facility]. She was unable to tell me the month, and told me the year is 2020. When asked about the season, she stated she was not sure but maybe spring. When asked if she understood why she is in the hospital, she stated ?not really, drawing a blank right now?. When asked how long she has been here, she stated ?a month ?. When asked if she understood her treatment, she reported ?to get me back on track, feeling better, so I can get home to my family . When asked who she lives with, she stated ?I live with my..... . (Per father, she had been living alone). She was unable to tell me her address at this time, or her phone number. She did have immediate recall of 3 words: bird, dog, car. When asked several minutes later to repeat the words, she was unable to recall being told any words. When asked how many children she had, she stated 5. She was unable to tell me the ages or the names. (per her father, she has 6 children). She appear to get frustrated after these questions, and turned her attention to the television. I was unable to complete a [place], or continue with any further assessment at this time. Past Psychiatric History: History of depression in the past, reports seeing a provider, does not remember if prescribed meds, or therapy. Father later reported several residential substance use programs. 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 [facility] Medical History Polysubstance abuse Surgical History No pertinent past surgical history Substance History: Ongoing multiple substances for past 25 years. Trauma History: Unknown Diagnostics Vital Signs (24Hr): Vital Signs - 24 hr 07/22/21 19:35 07/22/21 23:14 07/23/21 03:35 Temperature 97.8 F 97.5 F 97.8 F Pulse Rate 79 73 74 Respiratory Rate 18 16 16 Blood Pressure 110/75 111/73 107/61 Pulse Oximetry 97 94 92 07/23/21 08:00 07/23/21 11:35 Temperature 97.8 F 97.6 F Pulse Rate 70 75 Respiratory Rate 18 16 Blood Pressure 96/62 108/63 Pulse Oximetry 95 97 BMI result Body Mass Index 28.3 Labs Results: 07/11/21 05:53 07/12/21 05:18 Imaging Radiology Impressions: ITS Impressions Head CT 07/11/21 02:42 IMPRESSION: Symmetric regions of of hypoattenuation in the globus pallidus, which appears slightly more prominent than on 07/06/2021. This appearance can be seen with carbon monoxide poisoning and may be further evaluated with MRI. This was discussed with Dr. Jaeger on 07/11/2021 3:22 AM. Chest X-Ray 07/11/21 02:45 IMPRESSION: No acute cardiopulmonary findings. Abdomen X-Ray 07/11/21 20:25 IMPRESSION: 1. No radiopaque foreign body. The patient is cleared for MRI. 2. Left renal upper pole 19 mm calculus, as on CT of 03/26/2017. Brain MRI 07/11/21 21:35 IMPRESSION: Expansile T2 signal changes involving the globus pallidus bilaterally associated with intermediate reduced diffusivity. There is also restricted diffusion within the hippocampi bilaterally and involving portions of the right and left caudate nucleus as well as bandlike T2 signal changes involving the cerebellar white matter bilaterally. Findings could be toxic/metabolic in etiology and should be correlated for any recent drug exposures, particularly fentanyl/opioid exposure given bilateral hippocampal involvement. Carbon monoxide toxicity can present with a subset of these findings. Infectious etiologies should be considered in the appropriate clinical context. Short-term follow-up inclusive of post contrast imaging would be helpful in further assessment. Mental Status Exam Mental Status Exam Narrative: Well-developed, well-nourished, in NAD. Reclining in bed, with head of bed elevated. Dressed in hospital garb. Ambulation not observed. 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 [employer] Service Impaired, Recent Impaired and Working Impaired Hallucinations: None Delusions: Not Present Thought Process: Disoriented, Slowed Thinking and Confusion Thought Content: positive for [place], positive for Poverty of Content and positive for Slowed Thinking Judgement: Poor Medications Medications Current Medications Acetaminophen (Acetaminophen 325 Mg Tablet) 650 mg PO Q6H PRN PRN Reason: Pain, Mild (Pain Scale 1-3) Benzonatate (Benzonatate 100 Mg Capsule) 200 mg PO TID PRN PRN Reason: cough Last Admin: 07/13/21 16:52 Dose: 200 mg Documented by: Docusate Sodium (Docusate Sodium 100 Mg Capsule) 100 mg PO DAILY [facility] Last Admin: 07/23/21 10:30 Dose: 100 mg Documented by: Enoxaparin Sodium (Enoxaparin Sodium 40 Mg/0.4 Ml Syringe) 40 mg SUBCUT Q24H [facility] Last Admin: 07/23/21 05:30 Dose: 40 mg Documented by: Ferrous Sulfate (Ferrous Sulfate 300 Mg/5 Ml Liquid) 300 mg PO BIDWM [facility] Last Admin: 07/23/21 10:31 Dose: 300 mg Documented by: Guaifenesin/Dextromethorphan (Guaifenesin Dm 200/20/10 Ml 10 Ml Syrup) 5 ml PO Q4H PRN PRN Reason: cough Multivitamins/Vitamin C (Multivitamin Tablet) 1 tab PO BEDTIME [facility] Last Admin: 07/22/21 19:49 Dose: 1 tab Documented by: Omeprazole (Omeprazole 20 Mg Capsule.) 20 mg PO DAILY@0630 [facility] Last Admin: 07/23/21 05:30 Dose: 20 mg Documented by: Ondansetron HCl (Ondansetron Hcl 4 Mg/2 Ml Vial) 4 mg IVPUSH Q8H PRN PRN Reason: Nausea and Vomiting Polyethylene Glycol (Polyethylene Glycol 3350 17 Gm Powd.Pack) 17 gm PO DAILY [facility] Last Admin: 07/23/21 10:31 Dose: 17 gm Documented by: Sodium Chloride (0.9 % Sodium Chloride Flush 3 Ml Syringe) 3 ml IVFLUSH QSHIFT [facility] Last Admin: 07/23/21 10:31 Dose: Not Given Documented by: Thiamine HCl (Thiamine Hcl 100 Mg Tablet) 100 mg PO DAILY [facility] Last Admin: 07/23/21 10:31 Dose: 100 mg Documented by: Allergies Allergies Allergy/AdvReac Type Severity Reaction Status Date / Time codeine [CODEINE] Allergy Severe ANAPHLAXIS Verified 01/27/21 10:00 Penicillins Allergy Severe HIVES Verified 01/27/21 10:00 penicillin V Allergy Unknown hives Verified 01/27/21 10:00 Assessment & Plan Assessment & Plan (1) Encounter for assessment of healthcare decision-making capacity: Status: Acute Code(s): Z02.79 - Encounter for issue of other medical certificate Assessment and Plan: Patient continues with difficulty regarding explaining current medical condition, treatment, why she is in hospital, her own address or phone number, or correct number of children she has. She does not appear to have any improvement in capacity at this time. Plan Patient continues to appear to lack capacity for decision making. She is unable to appreciate a current medical severe circumstance, and is therefore nece ssarily lacking capacity to manage it. Recommend continue with HCP being invoked. My thoughts were shared with provider Dr. Jimbo Chino. I spent minutes with the patient and/or on the patient floor today, greater than?50% of which was spent counseling/coordinating care. Patient educated on: diagnosis and therapeutic strategies Informed Consent: does not understand
[2021-07-23 19:37] VITALS: BP 111/82; PULSE 72; RESP 18; TEMP 36.9; O2SAT 98
[2021-07-23] MEDS: Multivitamin TABLET 1 TAB PO (21:19)
[2021-07-23 23:45] VITALS: BP 105/52; PULSE 81; RESP 16; TEMP 36.4; O2SAT 94
[2021-07-24 03:15] VITALS: BP 103/64; PULSE 66; RESP 16; O2SAT 92
[2021-07-24] MEDS: Enoxaparin Sodium 40 MG/0.4 ML SYRINGE SUBCUT (05:47)
[2021-07-24] MEDS: Omeprazole 20 MG CAPSULE.DR PO (05:47)
[2021-07-24 08:00] VITALS: BP 113/73; PULSE 81; RESP 18; TEMP 36.6; O2SAT 93
[2021-07-24] MEDS: Docusate Sodium 100 MG CAPSULE PO (09:16)
[2021-07-24] MEDS: Thiamine HCL 100 MG TABLET PO (09:16)
[2021-07-24] MEDS: Ferrous Sulfate 300 MG/5 ML LIQUID PO ×2 (09:16→16:52)
[2021-07-24] MEDS: polyethylene glycoL 3350 17 GM POWD.PACK PO (09:16)
--- NOTE | 2021-07-24 10:34 | HO.PM.IMPN ---
Subjective Subjective Date of Service: 07/24/21 Interval History: sitting comfortably in chair, offers no acute complaints, patient is aware of place, slow to respond, not aware of time or year, unable to understand her underlying disease or management. 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 CTA bilateral CVS: S1,S2,RRR GI: +BS, NT, no distention Skin: No rash Neuro:? motor grossly intact Psych: poor insight Objective Data Active Medications Acetaminophen (Acetaminophen 325 Mg Tablet) 650 mg PO Q6H PRN PRN Reason: Pain, Mild (Pain Scale 1-3) Benzonatate (Benzonatate 100 Mg Capsule) 200 mg PO TID PRN PRN Reason: cough Last Admin: 07/13/21 16:52 Dose: 200 mg Documented by: ROXANA Docusate Sodium (Docusate Sodium 100 Mg Capsule) 100 mg PO DAILY [facility] Last Admin: 07/24/21 09:16 Dose: 100 mg Documented by: ROXANA Enoxaparin Sodium (Enoxaparin Sodium 40 Mg/0.4 Ml Syringe) 40 mg SUBCUT Q24H [facility] Last Admin: 07/24/21 05:47 Dose: 40 mg Documented by: NAUMOC Ferrous Sulfate (Ferrous Sulfate 300 Mg/5 Ml Liquid) 300 mg PO BIDWM [facility] Last Admin: 07/24/21 09:16 Dose: 300 mg Documented by: ROXANA Guaifenesin/Dextromethorphan (Guaifenesin Dm 200/20/10 Ml 10 Ml Syrup) 5 ml PO Q4H PRN PRN Reason: cough Multivitamins/Vitamin C (Multivitamin Tablet) 1 tab PO BEDTIME [facility] Last Admin: 07/23/21 21:19 Dose: 1 tab Documented by: HO.BEIT Omeprazole (Omeprazole 20 Mg Capsule.) 20 mg PO DAILY@0630 [facility] Last Admin: 07/24/21 05:47 Dose: 20 mg Documented by: GERARDO Ondansetron HCl (Ondansetron Hcl 4 Mg/2 Ml Vial) 4 mg IVPUSH Q8H PRN PRN Reason: Nausea and Vomiting Polyethylene Glycol (Polyethylene Glycol 3350 17 Gm Powd.Pack) 17 gm PO DAILY [facility] Last Admin: 07/24/21 09:16 Dose: 17 gm Documented by: ROXANA Sodium Chloride (0.9 % Sodium Chloride Flush 3 Ml Syringe) 3 ml IVFLUSH QSHIFT [facility] Last Admin: 07/24/21 08:21 Dose: Not Given Documented by: ROXANA Non-Admin Reason: No Access Thiamine HCl (Thiamine Hcl 100 Mg Tablet) 100 mg PO DAILY [facility] Last Admin: 07/24/21 09:16 Dose: 100 mg Documented by: ROXANA Labs CBC & Chem 7: 07/11/21 05:53 07/12/21 05:18 Assessment and Plan (1) Toxic encephalopathy: Status: Acute (2) Encounter for assessment of healthcare decision-making capacity: Status: Acute Plan A 46-year-old female with of substance abuse presents to the hospital with confusion essentially no change as of yesterday #Toxic metabolic encephalopathy- suspected secondary to polysubstance abuse ?urine toxicology was noted for cocaine, fentanyl, and marijuana although the patient adamantly denies using any illicit substance, her parents confirmed that she was actively using substances OT has worked with her with concern that she needs 24/ supervision parents are unable to provide dwelling for her at this point and prefer she goes to a rehab Pych reassessed on 07/23 and she does not have capacity to make decisions , healthcare proxy has been invoked #?E Coli UTI-- completed course of Abx DVT prophylaxis:? Lovenox need for inpatient: toxic metabolic encephalopathy? And awaiting safe disposition given that? she needs 24-hour observation. Family not able to care for her at home Quality Stroke Does the patient have a stroke diagnosis?: No VTE Prior VTE?: No VTE Risk Level:: Medical - moderate - high VTE Device Contraindication: Treatment Not Indicated VTE Drug Contraindication: N/A - Med Ordered
[2021-07-24 11:55] VITALS: BP 109/71; PULSE 72; RESP 18; TEMP 36.8; O2SAT 93
[2021-07-24 15:29] VITALS: BP 99/68; PULSE 79; RESP 18; TEMP 37.1; O2SAT 93
[2021-07-24 19:23] VITALS: BP 104/75; PULSE 76; RESP 16; TEMP 37.2; O2SAT 94
[2021-07-24] MEDS: Multivitamin TABLET 1 TAB PO (21:01)
[2021-07-24 23:19] VITALS: BP 109/69; PULSE 76; RESP 16; TEMP 37.2; O2SAT 94
[2021-07-25] MEDS: Enoxaparin Sodium 40 MG/0.4 ML SYRINGE SUBCUT (05:28)
[2021-07-25] MEDS: Omeprazole 20 MG CAPSULE.DR PO (05:30)
[2021-07-25 07:39] VITALS: BP 109/72; PULSE 76; RESP 17; TEMP 37.1; O2SAT 95
[2021-07-25] MEDS: Ferrous Sulfate 300 MG/5 ML LIQUID PO ×2 (10:51→16:19)
[2021-07-25] MEDS: Docusate Sodium 100 MG CAPSULE PO (10:51)
[2021-07-25] MEDS: Thiamine HCL 100 MG TABLET PO (10:51)
--- NOTE | 2021-07-25 13:21 | P.PNIM_ITS ---
Subjective Subjective Date of Service: 07/25/21 Interval History: offers no acute complaints, patient is aware of place, slow to respond, not aware of time or year, unable to? understand her underlying disease or management. 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 alert or iented to self and hospital, no acut e distress neck no JVD Resp:? CTA bi lateral CVS: S1,S2 ,RRR GI: abdomen soft,nontender, wilson wel sounds audible Skin: No rash Dionte ro:? motor grossly intact Psych:? po or insight Objective Data Active Medications Acetaminophen (Acetaminophen 325 Mg Tablet) 650 mg PO Q6H PRN PRN Reason: Pain, Mild (Pain Scale 1-3) Benzonatate (Benzonatate 100 Mg Capsule) 200 mg PO TID PRN PRN Reason: cough Last Admin: 07/13/21 16:52 Dose: 200 mg Documented by: ROXANA Docusate Sodium (Docusate Sodium 100 Mg Capsule) 100 mg PO DAILY [facility] Last Admin: 07/25/21 10:51 Dose: 100 mg Documented by: RADHA Enoxaparin Sodium (Enoxaparin Sodium 40 Mg/0.4 Ml Syringe) 40 mg SUBCUT Q24H [facility] Last Admin: 07/25/21 05:28 Dose: 40 mg Documented by: NICOLAS Ferrous Sulfate (Ferrous Sulfate 300 Mg/5 Ml Liquid) 300 mg PO BIDWM [facility] Last Admin: 07/25/21 10:51 Dose: 300 mg Documented by: RADHA Guaifenesin/Dextromethorphan (Guaifenesin Dm 200/20/10 Ml 10 Ml Syrup) 5 ml PO Q4H PRN PRN Reason: cough Multivitamins/Vitamin C (Multivitamin Tablet) 1 tab PO BEDTIME [facility] Last Admin: 07/24/21 21:01 Dose: 1 tab Documented by: NICOLAS Omeprazole (Omeprazole 20 Mg Capsule.) 20 mg PO DAILY@0630 [facility] Last Admin: 07/25/21 05:30 Dose: 20 mg Documented by: NICOLAS Ondansetron HCl (Ondansetron Hcl 4 Mg/2 Ml Vial) 4 mg IVPUSH Q8H PRN PRN Reason: Nausea and Vomiting Polyethylene Glycol (Polyethylene Glycol 3350 17 Gm Powd.Pack) 17 gm PO DAILY [facility] Last Admin: 07/25/21 10:51 Dose: Not Given Documented by: RADHA Non-Admin Reason: Patient Refused Sodium Chloride (0.9 % Sodium Chloride Flush 3 Ml Syringe) 3 ml IVFLUSH QSHIFT [facility] Last Admin: 07/25/21 10:51 Dose: Not Given Documented by: RADHA Non-Admin Reason: No Access Thiamine HCl (Thiamine Hcl 100 Mg Tablet) 100 mg PO DAILY [facility] Last Admin: 07/25/21 10:51 Dose: 100 mg Documented by: RADHA Labs CBC & Chem 7: 07/11/21 05:53 07/12/21 05:18 Assessment and Plan (1) Toxic encephalopathy: Status: Acute (2) Encounter for assessment of healthcare decision-making capacity: Status: Acute Plan A 46-year-old female with of substance abuse presents to the hospital with confusion #Toxic metabolic encephalopathy- suspected secondary to polysubstance abuse ?urine toxicology was noted for cocaine, fentanyl, and marijuana although the patient adamantly denies using any illicit substance, her parents confirmed that she was actively using substances as per PT/OT she needs 28/09 supervision parents are unable to provide dwelling for her at this point and prefer she goes to a rehab Pych reassessed on 07/23 and she does not have capacity to make decisions , 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 Lovenox need for inpatient: toxic metabolic encephalopathy?,awaiting safe disposition given that? she needs 24-hour observation. Family not able to care for her at home. Quality Stroke Does the patient have a stroke diagnosis?: No VTE Prior VTE?: No VTE Risk Level:: Medical - moderate - high VTE Device Contraindication: Treatment Not Indicated VTE Drug Contraindication: N/A - Med Ordered
[2021-07-25 15:28] VITALS: BP 111/64; PULSE 85; RESP 20; TEMP 37.2
[2021-07-25] MEDS: Multivitamin TABLET 1 TAB PO (19:28)
[2021-07-25 23:35] VITALS: BP 94/58; PULSE 72; RESP 18; TEMP 37; O2SAT 94
[2021-07-26] MEDS: Omeprazole 20 MG CAPSULE.DR PO (05:43)
[2021-07-26] MEDS: Enoxaparin Sodium 40 MG/0.4 ML SYRINGE SUBCUT (05:43)
[2021-07-26 07:25] VITALS: BP 112/72; PULSE 75; RESP 18; TEMP 36.2; O2SAT 95
[2021-07-26] MEDS: polyethylene glycoL 3350 17 GM POWD.PACK PO (07:54)
[2021-07-26] MEDS: Ferrous Sulfate 300 MG/5 ML LIQUID PO ×2 (07:54→17:12)
[2021-07-26] MEDS: Thiamine HCL 100 MG TABLET PO (07:54)
[2021-07-26] MEDS: Docusate Sodium 100 MG CAPSULE PO (07:54)
--- NOTE | 2021-07-26 10:59 | HO.PM.IMPN ---
Subjective Subjective Date of Service: 07/26/21 Interval History: seen and examined this morning pending placement no overnight events no complaints this morning Review of Systems Review of Systems: Yes all other systems are reviewed and are negative Constitutional Constitutional: Denies chills and Denies fever(s) Cardiovascular Cardiovascular: Denies chest pain, Denies palpitations and Denies dyspnea Respiratory Respiratory: Denies cough and Denies dyspnea Gastrointestinal Gastrointestinal: Denies abdominal pain Endocrine Endocrine: Denies palpitations Physical Exam Vital Signs: Vital Signs: Last Vital Signs Temp 97.1 F 07/26/21 07:25 Pulse 75 07/26/21 07:25 Resp 18 07/26/21 07:25 BP 112/72 07/26/21 07:25 Pulse Ox 95 07/26/21 07:25 BMI result Body Mass Index 28.3 Const: General: cooperative, comfortable, no acute distress, alert and awake Nutritional Appearance: average body habitus Eyes: Pupils: Equal, round and reactive pupils present EOM: EOMs intact bilaterally Resp: Effort & Inspection: normal respiratory effort and able to speak in complete sentences Auscultation: clear to auscultation bilaterally Cardio: Rate: regular rate Heart sounds: S1 normal heart sound present and S2 normal heart sound present GI: Inspection: No distended Palpation (GI): Soft to palpation and nontender Neuro: Cranial nerves: Yes Equal, round and reactive pupils present Extrem: General: Yes no pedal edema Objective Data Active Medications Acetaminophen (Acetaminophen 325 Mg Tablet) 650 mg PO Q6H PRN PRN Reason: Pain, Mild (Pain Scale 1-3) Benzonatate (Benzonatate 100 Mg Capsule) 200 mg PO TID PRN PRN Reason: cough Last Admin: 07/13/21 16:52 Dose: 200 mg Documented by: ROXANA Docusate Sodium (Docusate Sodium 100 Mg Capsule) 100 mg PO DAILY [facility] Last Admin: 07/26/21 07:54 Dose: 100 mg Documented by: RONALDO Enoxaparin Sodium (Enoxaparin Sodium 40 Mg/0.4 Ml Syringe) 40 mg SUBCUT Q24H [facility] Last Admin: 07/26/21 05:43 Dose: 40 mg Documented by: XIN Ferrous Sulfate (Ferrous Sulfate 300 Mg/5 Ml Liquid) 300 mg PO BIDWM [facility] Last Admin: 05/21/22 07:54 Dose: 300 mg Documented by: RONALDO Guaifenesin/Dextromethorphan (Guaifenesin Dm 200/20/10 Ml 10 Ml Syrup) 5 ml PO Q4H PRN PRN Reason: cough Multivitamins/Vitamin C (Multivitamin Tablet) 1 tab PO BEDTIME [facility] Last Admin: 07/25/21 19:28 Dose: 1 tab Documented by: JAIR Omeprazole (Omeprazole 20 Mg Jovani.) 20 mg PO DAILY@0630 [facility] Last Admin: 07/26/21 05:43 Dose: 20 mg Documented by: XIN Ondansetron HCl (Ondansetron Hcl 4 Mg/2 Ml Vial) 4 mg IVPUSH Q8H PRN PRN Reason: Nausea and Vomiting Polyethylene Glycol (Polyethylene Glycol 3350 17 Gm Powd.Pack) 17 gm PO DAILY [facility] Last Admin: 07/26/21 07:54 Dose: 17 gm Documented by: RONALDO Sodium Chloride (0.9 % Sodium Chloride Flush 3 Ml Syringe) 3 ml IVFLUSH QSHIFT [facility] Last Admin: 07/26/21 08:08 Dose: Not Given Documented by: RONALDO Non-Admin Reason: No Access Thiamine HCl (Thiamine Hcl 100 Mg Tablet) 100 mg PO DAILY [facility] Last Admin: 07/26/21 07:54 Dose: 100 mg Documented by: RONALDO Labs CBC & Chem 7: 07/11/21 05:53 07/12/21 05:18 Assessment and Plan (1) Toxic encephalopathy: Status: Acute Plan This is a 46-year-old female with of substance abuse presents to the hospital with confusion found to lack capacity to make medical decisions and awaiting placement Toxic metabolic encephalopathy- suspected secondary to polysubstance abuse urine toxicology was noted for cocaine, fentanyl, and marijuana although the patient adamantly denies using any illicit substance, her parents confirmed that she was actively using substances seen by neurology, brain changes on imaging consistent with cocaine abuse as per PT/OT she needs 28/09 supervision parents are unable to provide dwelling for her at this point and prefer she goes to a rehab Pych reassessed on 07/23 and she does not have capacity to make decisions, healthcare proxy has been invoked, porter sample case looking for bed E Coli UTI-- completed course of Abx DVT prophylaxis:? Lovenox Attending: dr. Payne need for inpatient: toxic metabolic encephalopathy?,awaiting safe disposition given that she needs 24-hour observation. Family not able to care for her at home. Quality Stroke Does the patient have a stroke diagnosis?: No VTE Prior VTE?: No VTE Risk Level:: Medical - moderate - high VTE Device Contraindication: Treatment Not Indicated VTE Drug Contraindication: N/A - Med Ordered
[2021-07-26 15:11] VITALS: BP 109/78; PULSE 67; RESP 18; TEMP 36.6; O2SAT 95
[2021-07-26] MEDS: Multivitamin TABLET 1 TAB PO (19:39)
[2021-07-26 23:25] VITALS: BP 104/59; PULSE 65; RESP 15; TEMP 36.3; O2SAT 94
[2021-07-27] MEDS: Enoxaparin Sodium 40 MG/0.4 ML SYRINGE SUBCUT (05:50)
[2021-07-27] MEDS: Omeprazole 20 MG CAPSULE.DR PO (05:50)
[2021-07-27 07:57] VITALS: BP 108/68; PULSE 73; RESP 18; TEMP 36.2; O2SAT 94
[2021-07-27] MEDS: Docusate Sodium 100 MG CAPSULE PO (09:15)
[2021-07-27] MEDS: polyethylene glycoL 3350 17 GM POWD.PACK PO (09:15)
[2021-07-27] MEDS: Thiamine HCL 100 MG TABLET PO (09:15)
[2021-07-27] MEDS: Ferrous Sulfate 300 MG/5 ML LIQUID PO ×2 (09:15→16:28)
--- NOTE | 2021-07-27 12:54 | P.PNIM_ITS ---
Subjective Subjective Date of Service: 07/27/21 Interval History: seen and examined this morning no overnight events resting in bed comfortably able to answer basic questions Review of Systems Review of Systems: Yes all other systems are reviewed and are negative Constitutional Constitutional: Denies chills and Denies fever(s) Cardiovascular Cardiovascular: Denies chest pain, Denies palpitations and Denies dyspnea Respiratory Respiratory: Denies cough and Denies dyspnea Gastrointestinal Gastrointestinal: Denies abdominal pain, Denies diarrhea, Denies nausea and Denies vomiting Endocrine Endocrine: Denies palpitations Physical Exam Vital Signs: Vital Signs: Last Vital Signs Temp 97.2 F 07/27/21 07:57 Pulse 73 07/27/21 07:57 Resp 18 07/27/21 07:57 BP 108/68 07/27/21 07:57 Pulse Ox 94 07/27/21 07:57 BMI result Body Mass Index 28.3 Const: General: cooperative, comfortable, no acute distress, alert and awake Nutritional Appearance: average body habitus Eyes: Pupils: Equal, round and reactive pupils present EOM: EOMs intact bilaterally Resp: Effort & Inspection: normal respiratory effort and able to speak in complete sentences Auscultation: clear to auscultation bilaterally Cardio: Rate: regular rate Heart sounds: S1 normal heart sound present and S2 normal heart sound present GI: Inspection: No distended Palpation (GI): Soft to palpation and nontender Neuro: Cranial nerves: Yes Equal, round and reactive pupils present Extrem: General: Yes no pedal edema Objective Data Active Medications Acetaminophen (Acetaminophen 325 Mg Tablet) 650 mg PO Q6H PRN PRN Reason: Pain, Mild (Pain Scale 1-3) Benzonatate (Benzonatate 100 Mg Capsule) 200 mg PO TID PRN PRN Reason: cough Last Admin: 07/13/21 16:52 Dose: 200 mg Documented by: ROXANA Docusate Sodium (Docusate Sodium 100 Mg Capsule) 100 mg PO DAILY [facility] Last Admin: 07/27/21 09:15 Dose: 100 mg Documented by: AZEEM Enoxaparin Sodium (Enoxaparin Sodium 40 Mg/0.4 Ml Syringe) 40 mg SUBCUT Q24H [facility] Last Admin: 07/27/21 05:50 Dose: 40 mg Documented by: DOM Ferrous Sulfate (Ferrous Sulfate 300 Mg/5 Ml Liquid) 300 mg PO BIDWM [facility] Last Admin: 07/27/21 09:15 Dose: 300 mg Documented by: AZEEM Guaifenesin/Dextromethorphan (Guaifenesin Dm 200/20/10 Ml 10 Ml Syrup) 5 ml PO Q4H PRN PRN Reason: cough Multivitamins/Vitamin C (Multivitamin Tablet) 1 tab PO BEDTIME [facility] Last Admin: 07/26/21 19:39 Dose: 1 tab Documented by: DOM Omeprazole (Omeprazole 20 Mg Capsule.) 20 mg PO DAILY@0630 [facility] Last Admin: 07/27/21 05:50 Dose: 20 mg Documented by: DOM Ondansetron HCl (Ondansetron Hcl 4 Mg/2 Ml Vial) 4 mg IVPUSH Q8H PRN PRN Reason: Nausea and Vomiting Polyethylene Glycol (Polyethylene Glycol 3350 17 Gm Powd.Pack) 17 gm PO DAILY [facility] Last Admin: 07/27/21 09:15 Dose: 17 gm Documented by: AZEEM Sodium Chloride (0.9 % Sodium Chloride Flush 3 Ml Syringe) 3 ml IVFLUSH QSHIFT [facility] Last Admin: 07/27/21 09:16 Dose: Not Given Documented by: AZEEM Non-Admin Reason: No Access Thiamine HCl (Thiamine Hcl 100 Mg Tablet) 100 mg PO DAILY [facility] Last Admin: 07/27/21 09:15 Dose: 100 mg Documented by: AZEEM Labs CBC & Chem 7: 07/11/21 05:53 07/12/21 05:18 Assessment and Plan (1) Toxic encephalopathy: Status: Acute Plan This is a 46-year-old female with of substance abuse presents to the hospital with confusion found to lack capacity to make medical decisions and awaiting placement Toxic metabolic encephalopathy- suspected secondary to polysubstance abuse urine toxicology was noted for cocaine, fentanyl, and marijuana although the patient adamantly denies using any illicit substance, her parents confirmed that she was actively using substances seen by neurology, brain changes on imaging consistent with cocaine abuse as per PT/OT she needs 28/09 supervision parents are unable to provide dwelling for her at this point and prefer she goes to a rehab Pych reassessed on 07/23 and she does not have capacity to make decisions, healthcare proxy has been invoked, correctional case records supervisor looking for bed E Coli UTI-- completed course of Abx DVT prophylaxis:? Lovenox Attending: dr. Payne need for inpatient: toxic metabolic encephalopathy?,awaiting safe disposition given that she needs 24-hour observation. Family not able to care for her at home. Quality Stroke Does the patient have a stroke diagnosis?: No VTE Prior VTE?: No VTE Risk Level:: Medical - moderate - high VTE Device Contraindication: Treatment Not Indicated VTE Drug Contraindication: N/A - Med Ordered
[2021-07-27 14:56] VITALS: BP 120/75; PULSE 75; RESP 18; TEMP 36.2; O2SAT 97
[2021-07-27] MEDS: Multivitamin TABLET 1 TAB PO (19:32)
[2021-07-28] VITALS: BP 110/70; PULSE 72; RESP 18; TEMP 36.3; O2SAT 94
[2021-07-28] MEDS: Omeprazole 20 MG CAPSULE.DR PO (05:57)
[2021-07-28] MEDS: Enoxaparin Sodium 40 MG/0.4 ML SYRINGE SUBCUT (05:57)
[2021-07-28 07:34] VITALS: BP 124/74; PULSE 80; RESP 18; TEMP 36.6; O2SAT 97
[2021-07-28] MEDS: Thiamine HCL 100 MG TABLET PO (07:58)
[2021-07-28] MEDS: polyethylene glycoL 3350 17 GM POWD.PACK PO (07:58)
[2021-07-28] MEDS: Docusate Sodium 100 MG CAPSULE PO (07:58)
[2021-07-28] MEDS: Ferrous Sulfate 300 MG/5 ML LIQUID PO ×2 (07:58→17:27)
--- NOTE | 2021-07-28 08:22 | MHC.CM.PN ---
late enrtry from 07/25/21 nurse child support case officer nurse child support case officer note electronic medical record reviewed along with meeting with patient and case discussed with occupational therapist and staff nurse i sent out numerous numerous referrals and eith not within contratc or not appropriate (SECONDARY TO POLYSUBSTANCE ABUSE, AGE 46 AND ONLY NEEDING OT SERVICES ) [facility] AND FOLLOWING , [facility] AND ALSO CALLED TO [employer] AND MESSAGE LEFT FOR THEM CASE ALSO+ TO [facility] [phone] KJESSAGE LEFT FOR HER TO CALL ME CALL MADE TO PATIENTS HEALTH CARE PROXY JOHNATHAN MONTIEL HER FATHER AND DISCUSSED THE BARRIERA IN TRYING TO FIND A PLACE OFR ABDIRIZAK ND THAT SINCE HER HEALTHC ARE PROXY IS INVOKE HE SHOULD LOOK ONTO [employer] SO WHEN WE DO HAVE A PLACE HE WOULD BE ABLE TO SUIGN HER IN HE REPORTED HE WILL DISCUSS WITH HER MOTHER AND CONTACT ME ON WEDNESDAY
--- NOTE | 2021-07-28 08:24 | MHC.CM.PN ---
CM MET WITH PT ON 07/27/21 TO DISCUSS DISCHARGE PLANNING. WHEN ASKED, PT REPORTS SHE BELIEVES THE PRESIDENT IS DEV AND IT IS 2020. 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 CM ASKED ABOUT HER [facility] INSURANCE AND PT REPORTS SHE CANNOT REMEMBER WHY SHE HAS THAT, WITH PROMPTING SHE DOES SAY SHE BELIEVES IT IS FROM HER EX-. PT IS AWARE SHE WILL BE HERE FOR SOME TIME AND THAT PLACEMENT IS THE GOAL. ALTHOUGH SHE REPORTS SHE DOES NOT WANT THIS TO HAPPEN, SHE DOES NOT APPEAR TO UNDERSTAND THE SEVERITY OF HER SITUATION. PLAN: SNF PLACEMENT ONCE GUARDIANSHIP/CONSERVATOR OBTAINED.
--- NOTE | 2021-07-28 08:40 | HO.PM.IMPN ---
Subjective Subjective Date of Service: 07/28/21 <Janeth Edwards NP - Last Filed: 07/28/21 08:52> 08/25/21 <Jimbo Chino MD - Last Filed: 08/25/21 09:46> Review of Systems Follow up UTI, encephalopathy no overnight events resting in bed comfortably able to answer basic questions <Janeth Edwards NP - Last Filed: 07/28/21 08:52> Physical Exam Vital Signs: Vital Signs: Last Vital Signs Temp 97.9 F 07/28/21 07:34 Pulse 80 07/28/21 07:34 Resp 18 07/28/21 07:34 BP 124/74 07/28/21 07:34 Pulse Ox 97 07/28/21 07:34 BMI result Body Mass Index 28.3 <Janeth Edwards NP - Last Filed: 07/28/21 08:52> Appearing in no acute distress lung sounds are clear to auscultation heart regular rate rhythm, clear S1, S2 positive bowel sounds, abdomen is soft, nontender neuro patient is alert, oriented to self <Janeth Edwards NP - Last Filed: 07/28/21 08:52> Objective Data Active Medications Acetaminophen (Acetaminophen 325 Mg Tablet) 650 mg PO Q6H PRN PRN Reason: Pain, Mild (Pain Scale 1-3) Benzonatate (Benzonatate 100 Mg Capsule) 200 mg PO TID PRN PRN Reason: cough Last Admin: 07/13/21 16:52 Dose: 200 mg Documented by: ROXANA Docusate Sodium (Docusate Sodium 100 Mg Capsule) 100 mg PO DAILY [facility] Last Admin: 07/28/21 07:58 Dose: 100 mg Documented by: IVANNA Enoxaparin Sodium (Enoxaparin Sodium 40 Mg/0.4 Ml Syringe) 40 mg SUBCUT Q24H [facility] Last Admin: 07/28/21 05:57 Dose: 40 mg Documented by: DOM Ferrous Sulfate (Ferrous Sulfate 300 Mg/5 Ml Liquid) 300 mg PO BIDWM [facility] Last Admin: 07/28/21 07:58 Dose: 300 mg Documented by: IVANNA Guaifenesin/Dextromethorphan (Guaifenesin Dm 200/20/10 Ml 10 Ml Syrup) 5 ml PO Q4H PRN PRN Reason: cough Multivitamins/Vitamin C (Multivitamin Tablet) 1 tab PO BEDTIME [facility] Last Admin: 07/27/21 19:32 Dose: 1 tab Documented by: DOM Omeprazole (Omeprazole 20 Mg Capsule.) 20 mg PO DAILY@0630 [facility] Last Admin: 07/28/21 05:57 Dose: 20 mg Documented by: DOM Ondansetron HCl (Ondansetron Hcl 4 Mg/2 Ml Vial) 4 mg IVPUSH Q8H PRN PRN Reason: Nausea and Vomiting Polyethylene Glycol (Polyethylene Glycol 3350 17 Gm Powd.Pack) 17 gm PO DAILY [facility] Last Admin: 07/28/21 07:58 Dose: 17 gm Documented by: IVANNA Sodium Chloride (0.9 % Sodium Chloride Flush 3 Ml Syringe) 3 ml IVFLUSH QSHIFT [facility] Last Admin: 07/28/21 07:58 Dose: Not Given Documented by: IVANNA Non-Admin Reason: No Access Thiamine HCl (Thiamine Hcl 100 Mg Tablet) 100 mg PO DAILY [facility] Last Admin: 07/28/21 07:58 Dose: 100 mg Documented by: IVANNA <Janeth Edwards NP - Last Filed: 07/28/21 08:52> Labs CBC & Chem 7: : 08/19/21 05:30 08/19/21 05:30 <Janeth Edwards NP - Last Filed: 07/28/21 08:52> Assessment and Plan (1) Toxic encephalopathy: Status: Acute <Janeth Edwards NP - Last Filed: 07/28/21 08:52> Assessment and Plan: This is a 46-year-old female with of substance abuse presents to the hospital with confusion found to lack capacity to make medical decisions and awaiting placement Toxic metabolic encephalopathy- suspected secondary to polysubstance abuse urine toxicology was noted for cocaine, fentanyl, and marijuana although the patient adamantly denies using any illicit substance, her parents confirmed that she was actively using substances seen by neurology, brain changes on imaging consistent with cocaine abuse as per PT/OT she needs 28/09 supervision parents are unable to provide dwelling for her at this point and prefer she goes to a rehab Pych reassessed on 07/23 and she does not have capacity to make decisions, healthcare proxy has been invoked, disability case manager looking for bed E Coli UTI completed course of Abx DVT prophylaxis Lovenox Attending Dr. Chino need for inpatient toxic metabolic encephalopathy, waiting safe disposition given that she needs 24-hour observation. Family not able to care for her at home. <Janeth Edwards NP - Last Filed: 07/28/21 08:52> Quality Stroke Does the patient have a stroke diagnosis?: No <Janeth Edwards NP - Last Filed: 07/28/21 08:52> VTE Prior VTE?: No <Janeth Edwards NP - Last Filed: 07/28/21 08:52> VTE Risk Level:: Medical - moderate - high <Janeth Edwards NP - Last Filed: 07/28/21 08:52> VTE Device Contraindication: Treatment Not Indicated <Janeth Edwards NP - Last Filed: 07/28/21 08:52> VTE Drug Contraindication: N/A - Med Ordered <Janeth Edwards NP - Last Filed: 07/28/21 08:52>
--- NOTE | 2021-07-28 15:32 | MHC.CM.PN ---
nurse employment case manager note , electronic medical record reviewed , along with case discussed with staff nurse, caee print manager director, occupational therapist , hospitalist and met with patient this am she wa still her her clothes form the weekend she had not showered or completed am care , she was more alert and interactive , has curtains opened and door was opened, but unable to tell me if family was here ovwr (which father confirmed they were) that she saw the ot this morning (which she had ) or if aptient saw the hopsitlist today. she could not rember what she had for breakgffeast but told me it was good. many more wide spread referrals qere sent from the [facility] , [facility] , [facility] , [facility] [place] in[facility] , alos iniated referrals to [facility] . spoke with ly from [facility] (ext [phone]) she reported to me they would pay biut out of [employer] prices if we were able to find a facility willing to take her , she also asked to make a referral to [facility] to the memory unit. spoke with chon johnson ag=roshni speaking with ludwin pena informed him to [facility] advisce to proceed with poc/payee public health representative if patient has no assessts or conservative ship . he rpeorted that to the best of his and patients mother she has no assessts , no social security disability. no care no liscenec. i asked if he if she ever had and learning deficites in school as she dropped out in 11 grade or mental health concerns he reported he though she did have a mentql health diagnosis and was seeing some one but does not recal the diagnosis or name , he also was unalbel to tell me when she last saw a pcp but she had one at the [facility] i cheked dit was dr shahla mena they faxed over the last office note from er employment case manager and h.p note states iv heroin and anxiety print manager to continue to follow
[2021-07-28 15:40] VITALS: BP 111/71; PULSE 70; RESP 18; TEMP 36.9; O2SAT 96
[2021-07-28] MEDS: Multivitamin TABLET 1 TAB PO (20:36)
[2021-07-28 23:13] VITALS: BP 101/64; PULSE 74; RESP 18; TEMP 36.1; O2SAT 95
[2021-07-29] MEDS: Omeprazole 20 MG CAPSULE.DR PO (06:02)
[2021-07-29] MEDS: Enoxaparin Sodium 40 MG/0.4 ML SYRINGE SUBCUT (06:02)
[2021-07-29 08:00] VITALS: BP 137/86; PULSE 104; RESP 17; TEMP 36.7; O2SAT 100
--- NOTE | 2021-07-29 08:18 | HO.PM.IMPN ---
Subjective Subjective Date of Service: 07/29/21 <Janeth Edwards NP - Last Filed: 07/29/21 08:35> 08/25/21 <Jimbo Chino MD - Last Filed: 08/25/21 09:46> Review of Systems Follow up UTI, encephalopathy no overnight events resting in bed comfortably able to answer basic questions <Janeth Edwards NP - Last Filed: 07/29/21 08:35> Physical Exam Vital Signs: Vital Signs: Last Vital Signs Temp 98.1 F 07/29/21 08:00 Pulse 104 H 07/29/21 08:00 Resp 17 07/29/21 08:00 BP 137/86 07/29/21 08:00 Pulse Ox 100 07/29/21 08:00 BMI result Body Mass Index 28.3 <Janeth Edwards NP - Last Filed: 07/29/21 08:35> Appearing in no acute distress lung sounds are clear to auscultation heart regular rate rhythm, clear S1, S2 positive bowel sounds, abdomen is soft, nontender neuro patient is alert x3, no focal deficits <Janeth Edwards NP - Last Filed: 07/29/21 08:35> Objective Data Active Medications Acetaminophen (Acetaminophen 325 Mg Tablet) 650 mg PO Q6H PRN PRN Reason: Pain, Mild (Pain Scale 1-3) Benzonatate (Benzonatate 100 Mg Capsule) 200 mg PO TID PRN PRN Reason: cough Last Admin: 07/13/21 16:52 Dose: 200 mg Documented by: ROXANA Docusate Sodium (Docusate Sodium 100 Mg Capsule) 100 mg PO DAILY [facility] Last Admin: 07/28/21 07:58 Dose: 100 mg Documented by: IVANNA Enoxaparin Sodium (Enoxaparin Sodium 40 Mg/0.4 Ml Syringe) 40 mg SUBCUT Q24H [facility] Ferrous Sulfate (Ferrous Sulfate 300 Mg/5 Ml Liquid) 300 mg PO BIDWM [facility] Last Admin: 07/28/21 17:27 Dose: 300 mg Documented by: IVANNA Guaifenesin/Dextromethorphan (Guaifenesin Dm 200/20/10 Ml 10 Ml Syrup) 5 ml PO Q4H PRN PRN Reason: cough Multivitamins/Vitamin C (Multivitamin Tablet) 1 tab PO BEDTIME [facility] Last Admin: 07/28/21 20:36 Dose: 1 tab Documented by: JANENE Omeprazole (Omeprazole 20 Mg Jovani.) 20 mg PO DAILY@0630 [facility] Last Admin: 07/29/21 06:02 Dose: 20 mg Documented by: JANENE Ondansetron HCl (Ondansetron Hcl 4 Mg/2 Ml Vial) 4 mg IVPUSH Q8H PRN PRN Reason: Nausea and Vomiting Polyethylene Glycol (Polyethylene Glycol 3350 17 Gm Powd.Pack) 17 gm PO DAILY [facility] Last Admin: 07/28/21 07:58 Dose: 17 gm Documented by: IVANNA Sodium Chloride (0.9 % Sodium Chloride Flush 3 Ml Syringe) 3 ml IVFLUSH QSHIFT [facility] Last Admin: 07/28/21 20:36 Dose: Not Given Documented by: JANENE Non-Admin Reason: No Access Thiamine HCl (Thiamine Hcl 100 Mg Tablet) 100 mg PO DAILY [facility] Last Admin: 07/28/21 07:58 Dose: 100 mg Documented by: IVANNA <Janeth Edwards NP - Last Filed: 07/29/21 08:35> Labs CBC & Chem 7: : 08/19/21 05:30 08/19/21 05:30 <Janeth Edwards NP - Last Filed: 07/29/21 08:35> Assessment and Plan (1) Toxic encephalopathy: Status: Acute <Janeth Edwards NP - Last Filed: 07/29/21 08:35> Assessment and Plan: This is a 46-year-old female with of substance abuse presents to the hospital with confusion found to lack capacity to make medical decisions and awaiting placement No overnight events Toxic metabolic encephalopathy- suspected secondary to polysubstance abuse urine toxicology was noted for cocaine, fentanyl, and marijuana although the patient adamantly denies using any illicit substance, her parents confirmed that she was actively using substances seen by neurology, brain changes on imaging consistent with cocaine abuse as per PT/OT she needs 28/09 supervision parents are unable to provide dwelling for her at this point and prefer she goes to a rehab Pych reassessed on 07/23 and she does not have capacity to make decisions, healthcare proxy has been invoked, upper caser looking for bed E Coli UTI completed course of Abx DVT prophylaxis Lovenox Attending Dr. Mlapah need for inpatient toxic metabolic encephalopathy, waiting safe disposition given that she needs 24-hour observation. Family not able to care for her at home. <Janeth Edwards NP - Last Filed: 07/29/21 08:35> Quality Stroke Does the patient have a stroke diagnosis?: No <Janeth Edwards NP - Last Filed: 07/29/21 08:35> VTE Prior VTE?: No <Janeth Edwards NP - Last Filed: 07/29/21 08:35> VTE Risk Level:: Medical - moderate - high <Janeth Edwards NP - Last Filed: 07/29/21 08:35> VTE Device Contraindication: Treatment Not Indicated <Janeth Edwards NP - Last Filed: 07/29/21 08:35> VTE Drug Contraindication: N/A - Med Ordered <Janeth Edwards NP - Last Filed: 07/29/21 08:35>
[2021-07-29] MEDS: Ferrous Sulfate 300 MG/5 ML LIQUID PO ×2 (08:26→17:16)
[2021-07-29] MEDS: polyethylene glycoL 3350 17 GM POWD.PACK PO (08:26)
[2021-07-29] MEDS: Docusate Sodium 100 MG CAPSULE PO (08:26)
[2021-07-29] MEDS: Thiamine HCL 100 MG TABLET PO (08:26)
[2021-07-29 15:42] VITALS: BP 123/67; PULSE 76; RESP 18; TEMP 37.1; O2SAT 95
[2021-07-29 15:51] VITALS: BP 111/75; PULSE 75; RESP 16; TEMP 36.6; O2SAT 96
[2021-07-29 19:37] VITALS: BP 129/69; PULSE 72; RESP 18; TEMP 36.7; O2SAT 93
[2021-07-29] MEDS: Multivitamin TABLET 1 TAB PO (20:11)
[2021-07-30] MEDS: Omeprazole 20 MG CAPSULE.DR PO (05:44)
[2021-07-30] MEDS: Enoxaparin Sodium 40 MG/0.4 ML SYRINGE SUBCUT (05:45)
[2021-07-30 07:31] VITALS: BP 123/73; PULSE 75; RESP 17; TEMP 36.6; O2SAT 95
[2021-07-30] MEDS: Docusate Sodium 100 MG CAPSULE PO (07:43)
[2021-07-30] MEDS: Ferrous Sulfate 300 MG/5 ML LIQUID PO ×2 (07:43→16:59)
[2021-07-30] MEDS: Thiamine HCL 100 MG TABLET PO (07:43)
[2021-07-30] MEDS: polyethylene glycoL 3350 17 GM POWD.PACK PO (07:44)
--- NOTE | 2021-07-30 08:21 | HO.PM.IMPN ---
Subjective Subjective Date of Service: 07/30/21 Interval History: Offers no acute questions, no overnight events being followed for UTI and encephalopathy, pending placement Review of Systems PHOTO FINISH PHOTOGRAPHER no headache, no dizziness CVS no chest pain, no palpitation respiratory no cough, no shortness of breath Review of Systems: Yes all other systems are reviewed and are negative Physical Exam Vital Signs: Vital Signs: Last Vital Signs Temp 97.8 F 07/30/21 07:31 Pulse 75 07/30/21 07:31 Resp 17 07/30/21 07:31 BP 123/73 07/30/21 07:31 Pulse Ox 95 07/30/21 07:31 BMI result Body Mass Index 28.3 Const: Other: General:? alert oriented to self and hospital, no acute distress neck no JVD Resp:? CTA bilateral CVS: S1,S2,RRR GI: abdomen soft, nontender, bowel sounds audible Skin: No rash Neuro:? motor grossly intact Psych:? poor insight Objective Data Active Medications Acetaminophen (Acetaminophen 325 Mg Tablet) 650 mg PO Q6H PRN PRN Reason: Pain, Mild (Pain Scale 1-3) Benzonatate (Benzonatate 100 Mg Capsule) 200 mg PO TID PRN PRN Reason: cough Last Admin: 07/13/21 16:52 Dose: 200 mg Documented by: ROXANA Docusate Sodium (Docusate Sodium 100 Mg Capsule) 100 mg PO DAILY [facility] Last Admin: 07/30/21 07:43 Dose: 100 mg Documented by: TEMO Enoxaparin Sodium (Enoxaparin Sodium 40 Mg/0.4 Ml Syringe) 40 mg SUBCUT Q24H [facility] Last Admin: 07/30/21 05:45 Dose: 40 mg Documented by: JANENE Ferrous Sulfate (Ferrous Sulfate 300 Mg/5 Ml Liquid) 300 mg PO BIDWM [facility] Last Admin: 07/30/21 07:43 Dose: 300 mg Documented by: TEMO Guaifenesin/Dextromethorphan (Guaifenesin Dm 200/20/10 Ml 10 Ml Syrup) 5 ml PO Q4H PRN PRN Reason: cough Multivitamins/Vitamin C (Multivitamin Tablet) 1 tab PO BEDTIME [facility] Last Admin: 07/29/21 20:11 Dose: 1 tab Documented by: JANENE Omeprazole (Omeprazole 20 Mg Capsule.) 20 mg PO DAILY@0630 [facility] Last Admin: 07/30/21 05:44 Dose: 20 mg Documented by: JANENE Ondansetron HCl (Ondansetron Hcl 4 Mg/2 Ml Vial) 4 mg IVPUSH Q8H PRN PRN Reason: Nausea and Vomiting Polyethylene Glycol (Polyethylene Glycol 3350 17 Gm Powd.Pack) 17 gm PO DAILY [facility] Last Admin: 07/30/21 07:44 Dose: 17 gm Documented by: TEMO Sodium Chloride (0.9 % Sodium Chloride Flush 3 Ml Syringe) 3 ml IVFLUSH QSHIFT [facility] Last Admin: 07/30/21 07:39 Dose: Not Given Documented by: TEMO Non-Admin Reason: No Access Thiamine HCl (Thiamine Hcl 100 Mg Tablet) 100 mg PO DAILY [facility] Last Admin: 07/30/21 07:43 Dose: 100 mg Documented by: TEMO Labs CBC & Chem 7: 07/11/21 05:53 07/12/21 05:18 Assessment and Plan (1) Toxic encephalopathy: Status: Acute Plan This is a 46-year-old female with of substance abuse presents to the hospital with confusion found to lack capacity to make medical decisions and awaiting placement Toxic metabolic encephalopathy- suspected secondary to polysubstance abuse urine toxicology was noted for cocaine, fentanyl, and marijuana although the patient adamantly denies using any illicit substance, her parents confirmed that she was actively using substances seen by neurology, brain changes on imaging consistent with cocaine abuse as per PT/OT she needs 28/09 supervision parents are unable to provide care for her at this point and prefer she goes to a rehab Pych reassessed on 07/23 and she does not have capacity to make decisions, healthcare proxy has been invoked, top case assembler looking for bed E Coli UTI completed course of Abx DVT prophylaxis Lovenox Attending Dr. Chino need for inpatient toxic metabolic encephalopathy, waiting safe disposition given that she needs 24-hour observation. Family not able to care for her at home. Quality Stroke Does the patient have a stroke diagnosis?: No VTE Prior VTE?: No VTE Risk Level:: Medical - moderate - high VTE Device Contraindication: Treatment Not Indicated VTE Drug Contraindication: N/A - Med Ordered
--- NOTE | 2021-07-30 12:50 | MHC.CM.PN ---
EM[facility] REVIEWED, CM HAS REACHED OUT [facility], [facility] [place] [facility] IS UNDER REVIEW, [facility] REPORTING THEY HAVE NO MALE BEDS, CM CONTACTED ADMISSIONS [facility] AT [phone] AND REPORTED THEY ARE FULL AND HAVE NEITHER MALE OR FEMALE BEDS AVAILABLE, [facility] ALSO REPORTED VANTAGE OF IS CLOSED TO ADMISSIONS AT THIS TIME. CM WILL CONT TO FOLLOW REFERRALS FOR PLACEMENT.
[2021-07-30 15:35] VITALS: BP 112/63; PULSE 78; RESP 18; TEMP 36.6; O2SAT 92
[2021-07-30 19:10] VITALS: BP 116/67; PULSE 77; RESP 18; TEMP 37; O2SAT 94
[2021-07-30] MEDS: Multivitamin TABLET 1 TAB PO (20:39)
[2021-07-30 23:14] VITALS: BP 105/56; PULSE 71; RESP 16; TEMP 36.6; O2SAT 93
[2021-07-31] MEDS: Omeprazole 20 MG CAPSULE.DR PO (05:47)
[2021-07-31] MEDS: Enoxaparin Sodium 40 MG/0.4 ML SYRINGE SUBCUT (05:47)
[2021-07-31 07:34] VITALS: BP 125/71; PULSE 70; RESP 18; TEMP 36.8; O2SAT 97
[2021-07-31] MEDS: Ferrous Sulfate 300 MG/5 ML LIQUID PO ×2 (10:06→18:14)
[2021-07-31] MEDS: Thiamine HCL 100 MG TABLET PO (10:06)
--- NOTE | 2021-07-31 11:03 | HO.PM.IMPN ---
Subjective Subjective Date of Service: 07/31/21 Interval History: Offers no acute complaints, no overnight events, pending placement. 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 alert or iented to self and hospital, no acut e distress neck no JVD Resp:? CTA bi lateral CVS: S1,S2 ,RRR GI:? abdomen soft, nontender, b owel sounds audibl e Skin: No rash Ne uro:? motor grossl y intact Psych:? p oor insight Objective Data Active Medications Acetaminophen (Acetaminophen 325 Mg Tablet) 650 mg PO Q6H PRN PRN Reason: Pain, Mild (Pain Scale 1-3) Benzonatate (Benzonatate 100 Mg Capsule) 200 mg PO TID PRN PRN Reason: cough Last Admin: 07/13/21 16:52 Dose: 200 mg Documented by: ROXANA Docusate Sodium (Docusate Sodium 100 Mg Capsule) 100 mg PO DAILY COUNTS INCLUDE 234 BEDS AT THE [facility] Last Admin: 07/31/21 10:06 Dose: Not Given Documented by: RIKI Non-Admin Reason: Patient Refused Enoxaparin Sodium (Enoxaparin Sodium 40 Mg/0.4 Ml Syringe) 40 mg SUBCUT Q24H COUNTS INCLUDE 234 BEDS AT THE [facility] Last Admin: 07/31/21 05:47 Dose: 40 mg Documented by: JAIR Ferrous Sulfate (Ferrous Sulfate 300 Mg/5 Ml Liquid) 300 mg PO BIDWM COUNTS INCLUDE 234 BEDS AT THE [facility] Last Admin: 07/31/21 10:06 Dose: 300 mg Documented by: RIKI Guaifenesin/Dextromethorphan (Guaifenesin Dm 200/20/10 Ml 10 Ml Syrup) 5 ml PO Q4H PRN PRN Reason: cough Multivitamins/Vitamin C (Multivitamin Tablet) 1 tab PO BEDTIME COUNTS INCLUDE 234 BEDS AT THE [facility] Last Admin: 07/30/21 20:39 Dose: 1 tab Documented by: DARIN Omeprazole (Omeprazole 20 Mg Jovani.) 20 mg PO DAILY@0630 COUNTS INCLUDE 234 BEDS AT THE [facility] Last Admin: 07/31/21 05:47 Dose: 20 mg Documented by: JAIR Ondansetron HCl (Ondansetron Hcl 4 Mg/2 Ml Vial) 4 mg IVPUSH Q8H PRN PRN Reason: Nausea and Vomiting Polyethylene Glycol (Polyethylene Glycol 3350 17 Gm Powd.Pack) 17 gm PO DAILY COUNTS INCLUDE 234 BEDS AT THE [facility] Last Admin: 07/31/21 10:06 Dose: Not Given Documented by: RIKI Non-Admin Reason: Patient Refused Sodium Chloride (0.9 % Sodium Chloride Flush 3 Ml Syringe) 3 ml IVFLUSH QSHIFT COUNTS INCLUDE 234 BEDS AT THE [facility] Last Admin: 07/31/21 10:06 Dose: Not Given Documented by: RIKI Non-Admin Reason: No Access Thiamine HCl (Thiamine Hcl 100 Mg Tablet) 100 mg PO DAILY COUNTS INCLUDE 234 BEDS AT THE [facility] Last Admin: 07/31/21 10:06 Dose: 100 mg Documented by: RIKI Labs CBC & Chem 7: 07/11/21 05:53 07/12/21 05:18 Assessment and Plan (1) Toxic encephalopathy: Status: Acute Plan 46-year-old female with of substance abuse presents to the hospital with confusion found to lack capacity to make medical decisions and awaiting placement Toxic metabolic encephalopathy- suspected secondary to polysubstance abuse urine toxicology was noted for cocaine, fentanyl, and marijuana although the patient adamantly denies using any illicit substance, her parents confirmed that she was actively using substances seen by neurology, brain changes on imaging consistent with cocaine abuse as per PT/OT she needs 28/09 supervision parents are unable to provide care for her at this point and prefer she goes to a rehab Pych reassessed on 07/23 and she does not have capacity to make decisions, healthcare proxy has been invoked, vocational case manager looking for bed E Coli UTI completed course of Abx DVT prophylaxis Lovenox Attending Dr. Chino need for inpatient toxic metabolic encephalopathy, waiting safe disposition given that she needs 24-hour observation. Family not able to care for her at home. Quality Stroke Does the patient have a stroke diagnosis?: No VTE Prior VTE?: No VTE Risk Level:: Medical - moderate - high VTE Device Contraindication: Treatment Not Indicated VTE Drug Contraindication: N/A - Med Ordered
[2021-07-31 15:10] VITALS: BP 111/75; PULSE 78; RESP 18; TEMP 36.4; O2SAT 95
--- NOTE | 2021-07-31 16:05 | MHC.CM.PN ---
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 CASE MANGER TO CONTINUE TO FOLLOW UP PATIENT FATHER /HCP CALLED AND REPORTED HE HAD BEEN IN CONTACT WITH A TOE SEWER AND WAS TOLD TOGO FOR GUARDIANSHIP AND HE ASKED FOR A MEEICAL CRETIFICATED FROM [facility]
[2021-07-31 19:12] VITALS: BP 114/73; PULSE 88; RESP 18; TEMP 36.5; O2SAT 94
[2021-07-31] MEDS: Multivitamin TABLET 1 TAB PO (20:34)
[2021-07-31 23:21] VITALS: BP 106/61; PULSE 74; RESP 17; TEMP 36.7; O2SAT 94
[2021-08-01] MEDS: Omeprazole 20 MG CAPSULE.DR PO (06:41)
[2021-08-01] MEDS: Enoxaparin Sodium 40 MG/0.4 ML SYRINGE SUBCUT (06:42)
[2021-08-01 07:25] VITALS: BP 124/83; PULSE 85; RESP 17; TEMP 36.2; O2SAT 94
[2021-08-01] MEDS: Docusate Sodium 100 MG CAPSULE PO (09:04)
[2021-08-01] MEDS: Thiamine HCL 100 MG TABLET PO (09:04)
[2021-08-01] MEDS: Ferrous Sulfate 300 MG/5 ML LIQUID PO ×2 (09:04→16:29)
--- NOTE | 2021-08-01 09:31 | P.PNIM_ITS ---
Subjective Subjective Date of Service: 08/01/21 Interval History: Offers no acute complaints, no overnight events, pending placement. 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 General: cooperati ve, comfortable, n o acute distress, alert and awake? N utritional Appeara nce: average body habitus Eyes:?? Pupils: Equal, rou nd and reactive pu pils present? EOM: EOMs intact bilat erally Resp:?? Effort & Inspectio n: normal respirat ory effort and abl e to speak in comp lete sentences? Au scultation: clear to auscultation bi laterally Cardio:?? Rate: regular rate ? Heart sounds: S1 normal heart soun d present and S2 n ormal heart sound present GI:?? Inspection: No dis tended? Palpation (GI): Soft to palp ation and nontende r Neuro:?? Cranial nerves: Ye s Equal, round and reactive pupils p resent Extrem:?? General: Yes no pe geraldine edema Objective Data Active Medications Acetaminophen (Acetaminophen 325 Mg Tablet) 650 mg PO Q6H PRN PRN Reason: Pain, Mild (Pain Scale 1-3) Benzonatate (Benzonatate 100 Mg Capsule) 200 mg PO TID PRN PRN Reason: cough Last Admin: 07/13/21 16:52 Dose: 200 mg Documented by: COTEMA Docusate Sodium (Docusate Sodium 100 Mg Capsule) 100 mg PO DAILY [facility] Last Admin: 08/01/21 09:04 Dose: 100 mg Documented by: EVERARDO Enoxaparin Sodium (Enoxaparin Sodium 40 Mg/0.4 Ml Syringe) 40 mg SUBCUT Q24H [facility] Last Admin: 08/01/21 06:42 Dose: 40 mg Documented by: DOM Ferrous Sulfate (Ferrous Sulfate 300 Mg/5 Ml Liquid) 300 mg PO BIDWM [facility] Last Admin: 08/01/21 09:04 Dose: 300 mg Documented by: EVERARDO Guaifenesin/Dextromethorphan (Guaifenesin Dm 200/20/10 Ml 10 Ml Syrup) 5 ml PO Q4H PRN PRN Reason: cough Multivitamins/Vitamin C (Multivitamin Tablet) 1 tab PO BEDTIME [facility] Last Admin: 07/31/21 20:34 Dose: 1 tab Documented by: DOM Omeprazole (Omeprazole 20 Mg Capsule.) 20 mg PO DAILY@0630 [facility] Last Admin: 08/01/21 06:41 Dose: 20 mg Documented by: DOM Ondansetron HCl (Ondansetron Hcl 4 Mg/2 Ml Vial) 4 mg IVPUSH Q8H PRN PRN Reason: Nausea and Vomiting Polyethylene Glycol (Polyethylene Glycol 3350 17 Gm Powd.Pack) 17 gm PO DAILY [facility] Last Admin: 08/01/21 09:06 Dose: Not Given Documented by: EVERARDO Non-Admin Reason: Patient Refused Sodium Chloride (0.9 % Sodium Chloride Flush 3 Ml Syringe) 3 ml IVFLUSH QSHIFT [facility] Last Admin: 08/01/21 09:05 Dose: Not Given Documented by: EVERARDO Non-Admin Reason: No Access Thiamine HCl (Thiamine Hcl 100 Mg Tablet) 100 mg PO DAILY [facility] Last Admin: 08/01/21 09:04 Dose: 100 mg Documented by: EVERARDO Labs CBC & Chem 7: 07/11/21 05:53 07/12/21 05:18 Assessment and Plan (1) Toxic encephalopathy: Status: Acute Plan 46-year-old female with of substance abuse presents to the hospital with confusion found to lack capacity to make medical decisions and awaiting placement Toxic metabolic encephalopathy- suspected secondary to polysubstance abuse urine toxicology was noted for cocaine, fentanyl, and marijuana although the patient adamantly denies using any illicit substance, her parents confirmed that she was actively using substances seen by neurology, brain changes on imaging consistent with cocaine abuse as per PT/OT she needs 28/09 supervision parents are unable to provide care for her at this point and prefer she goes to a rehab Pych reassessed on 07/23 and she does not have capacity to make decisions, healthcare proxy has been invoked, caser in looking for bed E Coli UTI completed course of Abx DVT prophylaxis Lovenox need for inpatient toxic metabolic encephalopathy, waiting safe disposition given that she needs 24-hour observation. Family not able to care for her at home. Quality Stroke Does the patient have a stroke diagnosis?: No VTE Prior VTE?: No VTE Risk Level:: Medical - moderate - high VTE Device Contraindication: Treatment Not Indicated VTE Drug Contraindication: N/A - Med Ordered
--- NOTE | 2021-08-01 14:33 | MHC.CM.PN ---
Call placed to pt's father/HCP Jerardo to discuss next steps in obtaining Rep Payee and to clarify Jerardo''s plan to obtain Guardianship for patient. Educated Jerardo that he does not need to obtain Guardianship for patient. As Jerardo is HCP, it allows him the appropriate authorities to transfer patient to [facility]. Also explained to Jerardo the purpose of Rep Payee would allow Jeradro access to pt's bank and finances in order to apply for LTC sera for [facility]. Recommended for Jerardo to speak with [facility] financial services to understand documents needed for [facility].
--- NOTE | 2021-08-01 15:12 | MHC.CM.PN ---
nurse spring encaser note electronic medical record reviewed , case discussed with the hospitlais5 [place] [facility] [place] , requested spees evaluationmfor cognitive mu-ism and techinques to be used again asked for order from hospitlaist , mitzy redmond and ltc beds looked for additionally resent today and added [employer] and [employer] . [place] [facility] [place] [facility] to see if patient can be changed to [facility] standard to cover her mcc cRE NOW HAS [facility] PLUS THEY WILL REACH OUT TO PATIENTS JIN AND ESPERANZA WHY PATIENT WOULD NEED PATYERREPRESENTATIVE CASE MANAGWRT TO CONTINUE TO FOLLOW
[2021-08-01 15:21] VITALS: BP 123/80; PULSE 84; RESP 17; TEMP 36.1; O2SAT 96
--- NOTE | 2021-08-01 16:37 | MHC.SP.ADU ---
Referring provider: Attending: Dr. Morales Reason for Referral: Concerns surrounding cognition Type of Treatment: 15930 Standardized Cognitive Performance Testing, per hour Date of Plan of Treatment: 06/01/21 Onset of Symptoms/Illness: 06/01/21 Date Treatment Started: 06/01/21 Medical Diagnosis: Toxic encephalopathy Primary Speech Language Diagnosis: R41.841 Cognitive communication disorder History Patient is a 46 year old female admitted for toxic encephalopathy, suspected 2nd to polysubstance abuse. Urine tox noted for cocaine, fentanyl, marijuana. Patient was seen by neurology- Brain changes on imaging noted to be consistent with cocaine abuse. Per PT/OT, patient needs 28/09 supervision. Per chart review, patient presented with confusion, found to lack capacity to make medical decision, awaiting placement. Brain MRI 07/11: Expansile T2 signal changes involving the globus pallidus bilaterally associated with intermediate reduced diffusivity. There is also restricted diffusion within the hippocampi bilaterally and involving portions of the right and left caudate nucleus as well as bandlike T2 signal changes involving the cerebellar white matter bilaterally. Findings could be toxic/metabolic in etiology and should be correlated for any recent drug exposures, particularly fentanyl/opioid exposure given bilateral hippocampal involvement. Carbon monoxide toxicity can present with a subset of these findings. Infectious etiologies should be considered in the appropriate clinical context. Short-term follow-up inclusive of post contrast imaging would be helpful in further assessment. Other Therapies Seen in Current Calendar Year: Occupational Therapy, Physical Therapy Swallowing History: Dysphagia Specific: Within Functional Limits Comments: Patient seen for bedside swallow evaluation. Oral mech exam was unremarkable. Patient appears to have natural dentition in adequate condition for mastication. Strength and ROM of oral structures deemed to be WFL. Patient was able to feed herself without difficulty. Patient consumed cup of water (thin liquid) and dry dheeraj crackers. Unremarkable oral phase. No clinical signs of aspiration. Patient denies trouble swallowing. Pre-evaluation Dietary Consistencies: Regular Pre-eval Liquid Intake: Thin Pre-eval Medication Intake: Whole with Liquid Reported Speech, Language, Cognition difficulties: Attention, Memory, Cognition Comments: Patient presents with a moderate cognitive linguistic impairment. Assessment Tests of Cognition: CLQT Clinical Impression: Impaired Observations: Patient was administered the Cognitive Linguistic Quick Test (CLQT). The CLQT is a criterion-referenced assessment used to gain information about an individual?s relative strengths and weaknesses and to identify deficits in cognitive-linguistic skills in individuals aged 18-89 years old. The CLQT generates severity ratings in the following five cognitive domains: Attention, Memory, Language, Executive Functions, and Visuospatial Skills. Patient?s performance on the CLQT is displayed below: Task: Criterion Cut Score, Patient?s Score, Interpretation Personal Facts: 8, 4, BELOW AVERAGE Symbol Cancellation: 11, 12, Within Functional Limits Confrontational Namin, 10, Within Functional Limits Clock Drawin, 11, BELOW AVERAGE Story Retellin, 3, BELOW AVERAGE Symbol Trails: 9, 2, BELOW AVERAGE Generative Namin, 3, BELOW AVERAGE Design Memory: 5, 4, BELOW AVERAGE Mazes: 7, 8, Within Functional Limits Design Generation: 6, 2, BELOW AVERAGE Task scores were summed together based on cognitive domain. Cognitive Domain scores are as follows: Cognitive Domain: Domain Score, Severity Range, Severity Rating Attention: 162, Mild, 3 Memory: 89, Severe, 1 Executive Functions: 15, Severe, 1 Language: 20, Severe, 1 Visuospatial Skills: 70, Mild, 3 Patient?s Composite Severity Rating of 1.8 is interpreted as a MODERATE COGNITIVE LINGUISTIC IMPAIRMENT according to her performance on this assessment measure. Attention skills include the ability to maintain attention over time, selectively disengage from one task to engage in a new one, and the ability to coordinate the demands of multiple tasks (Lois-Estabcelsooks, 2001). Patient was able to attend to simple, short tasks but exhibited some difficulty coordinating the demands of multiple tasks at once. Patient asked for models and repetitions of task instructions as needed throughout the assessment. Patient demonstrated impairment in short term memory according to her performance on the CLQT. Memory is a complex process that includes the ability to attend to, process, retain, store, and retrieve information (Lois-Estabrozhangs, 2001). Patient correctly stated her name and birthdate. She did not recall her address and incorrectly stated her age to be 37. Patient exhibited difficulty recalling design shapes (immediate recall of new visual information) and immediately recalling details about a story verbally presented by the clinician (immediate recall of new information presented verbally in a paragraph). After having listened to a short paragraph, patient stated ?I won?t remember that.? Patient recalled few details from the paragraph and correctly answered 5/6 questions about information presented in the paragraph. Patient completed tasks that assessed her ability to plan, sequence, implement, and accomplish goal-directed activities in flexible manner, taking into consideration situational and environmental changes (Anay, 2001). When completing a maze, patient was observed to pause and look ahead before drawing her path to plan his route accordingly. Patient was instructed to create as many different designs as she could using just 4 lines without repeating. Patient exhibited difficulty with this design generation activity. Patient perseverated on her designs, copied example designs generated by the clinician, and giuliano designs with 3 lines rather than 4. Individuals with typical neurological cognitive-linguistic skills typically generate more designs by creating a pattern in alternating positions of the designs. This reflects reduced flexibility in the generation of new designs or ideas. Patient demonstrated impairment in her language skills based on her performance on the CLQT. On this assessment measure, patient correctly named 10 out of 10 images, which had depicted frequent items. However, notably, she exhibited difficulty with generative naming tasks, especially with the added pressure of a time constraint. Patient was instructed to name as many items as she could within a minute in a given category. Patient was able to name 10 items within the animal category, and 3 items ?beginning with the letter m.? During this task, patient forgot task instructions, asked for repetition two times. Further assessed naming abilities with administration of the [place] Naming Test. Patient correctly named 47 out of 60 items. Patient displayed some word retrieval difficulty. Patient groped for words, stating ?I forgot that word.? She also displayed some paraphasias (i.e. naming [place] as chipmunk, whistle as keys). Visuospatial skills include the ability to scan, discriminate, analyze, and interpret visual information (Anay, 2001). Patient scored within the mildly impaired range on tasks targeting visuaospatial skills. Patient was presented with a page depicting several different shapes. She was was instructed to cross out a particular shape, each time it occurred on the next page. Patient did this without difficulty. When given more complex instructions, patient exhibited more difficulty completing tasks. Patient was instructed to draw a trail from the smallest to the largest shapes, while also alternating shapes. Patient was provided with several repetitions of task instructions as requested by the patient. Nevertheless she was unable to complete the task. Impressions and Recommendations Summary: Impact on Daily Function/Activity Limitations: Daily Activities: Moderate Interpersonal Interactions: Mild Education: Employment: Community: Moderate Prognosis for Improvement: Fair Comment: Recommendation for Speech Therapy: Speech Therapy through Rehab Facility Outpatient vs. [facility] Speech Therapy Recommended Referrals to be Discussed with Primary Care Provider: Neurology Patient Education: Completed: Yes Patient/Caregiver Education: Described Results of Evaluation Patient expressed understanding of evaluation Comments/Barriers to Learning: Support Worker Clinican/Clinical Fellow: No Supervisory Statement: N/A Speech Language Pathologist: Shazia Son M.A., CCC-RECIPROCATING DRILL OPERATOR
--- NOTE | 2021-08-01 16:39 | MHC.SLORD ---
Speech Language Pathology Order Status: Patient seen this afternoon by BAND BIAS MACHINE OPERATOR. Patient passed bedside swallow evaluation. Patient was able to feed herself. Patient consumed dry dheeraj crackers and water by cup. No clinical signs of aspiration. Unremarkable oral phase. Patient denied difficulty swallowing. Patient also participated in the CLQT- Based on her performance, she presents with a moderate cognitive linguistic impairment. Recommend continue speech therapy at next level of care.
[2021-08-01] MEDS: Multivitamin TABLET 1 TAB PO (20:36)
[2021-08-01 23:25] VITALS: BP 101/67; PULSE 67; RESP 17; TEMP 36.3; O2SAT 94
[2021-08-02] MEDS: Enoxaparin Sodium 40 MG/0.4 ML SYRINGE SUBCUT (05:22)
[2021-08-02] MEDS: Omeprazole 20 MG CAPSULE.DR PO (05:26)
[2021-08-02 08:00] VITALS: BP 125/76; PULSE 75; RESP 18; TEMP 36.2; O2SAT 94
--- NOTE | 2021-08-02 08:05 | P.PNIM_ITS ---
Subjective Subjective Date of Service: 08/02/21 Interval History: Offers no acute complaints , no overnight events, pending placement Review of Systems TAG MACHINE OPERATOR no headache, no dizziness ?CVS no chest pain, no palpitation ?respiratory no cough, no shortness of breath Review of Systems: Yes all other systems are reviewed and are negative Physical Exam Vital Signs: Vital Signs: Last Vital Signs Temp 97.4 F 08/01/21 23:25 Pulse 67 08/01/21 23:25 Resp 17 08/01/21 23:25 BP 101/67 08/01/21 23:25 Pulse Ox 94 08/01/21 23:25 BMI result Body Mass Index 28.3 Const: Other: General:? alert oriented to self and hospital, no acute distress neck no JVD Resp:? CTA bilateral CVS: S1,S2,RRR GI:? abdomen soft, nontender, bowel sounds audible Skin: No rash Neuro:? motor grossly intact Psych:? poor insight Objective Data Active Medications Acetaminophen (Acetaminophen 325 Mg Tablet) 650 mg PO Q6H PRN PRN Reason: Pain, Mild (Pain Scale 1-3) Benzonatate (Benzonatate 100 Mg Capsule) 200 mg PO TID PRN PRN Reason: cough Last Admin: 07/13/21 16:52 Dose: 200 mg Documented by: COTEMA Docusate Sodium (Docusate Sodium 100 Mg Capsule) 100 mg PO DAILY [facility] Last Admin: 08/01/21 09:04 Dose: 100 mg Documented by: EVERARDO Enoxaparin Sodium (Enoxaparin Sodium 40 Mg/0.4 Ml Syringe) 40 mg SUBCUT Q24H [facility] Last Admin: 08/02/21 05:22 Dose: 40 mg Documented by: NICOLAS Ferrous Sulfate (Ferrous Sulfate 300 Mg/5 Ml Liquid) 300 mg PO BIDWM [facility] Last Admin: 08/01/21 16:29 Dose: 300 mg Documented by: EVERARDO Guaifenesin/Dextromethorphan (Guaifenesin Dm 200/20/10 Ml 10 Ml Syrup) 5 ml PO Q4H PRN PRN Reason: cough Multivitamins/Vitamin C (Multivitamin Tablet) 1 tab PO BEDTIME [facility] Last Admin: 08/01/21 20:36 Dose: 1 tab Documented by: NICOLAS Omeprazole (Omeprazole 20 Mg Capsule.) 20 mg PO DAILY@0630 [facility] Last Admin: 08/02/21 05:26 Dose: 20 mg Documented by: NICOLAS Ondansetron HCl (Ondansetron Hcl 4 Mg/2 Ml Vial) 4 mg IVPUSH Q8H PRN PRN Reason: Nausea and Vomiting Polyethylene Glycol (Polyethylene Glycol 3350 17 Gm Powd.Pack) 17 gm PO DAILY [facility] Last Admin: 08/01/21 09:06 Dose: Not Given Documented by: EVERARDO Non-Admin Reason: Patient Refused Sodium Chloride (0.9 % Sodium Chloride Flush 3 Ml Syringe) 3 ml IVFLUSH QSHIFT [facility] Last Admin: 08/01/21 23:56 Dose: Not Given Documented by: NICOLAS Non-Admin Reason: no access Thiamine HCl (Thiamine Hcl 100 Mg Tablet) 100 mg PO DAILY [facility] Last Admin: 08/01/21 09:04 Dose: 100 mg Documented by: EVERARDO Labs CBC & Chem 7: 07/11/21 05:53 07/12/21 05:18 Assessment and Plan (1) Toxic encephalopathy: Status: Acute Plan 46-year-old female with of substance abuse presents to the hospital with confusion found to lack capacity to make medical decisions and awaiting placement Toxic metabolic encephalopathy- suspected secondary to polysubstance abuse urine toxicology was noted for cocaine, fentanyl, and marijuana although the patient adamantly denies using any illicit substance, her parents confirmed that she was actively using substances seen by neurology, brain changes on imaging consistent with cocaine abuse as per PT/OT she needs 28/09 supervision parents are unable to provide care for her at this point and prefer she goes to a rehab Pych reassessed on 07/23 and she does not have capacity to make decisions, healthcare proxy has been invoked, residential case manager looking for bed Seen by speech therapy August 01 they found patient to have severely impaired memory, executive functions, language mild impairment in attention and visuospatial skills they recommend to continue speech therapy. E Coli UTI completed course of Abx DVT prophylaxis Lovenox need for inpatient toxic metabolic encephalopathy, waiting safe disposition given that she needs 24-hour observation. Family not able to care for her at home. Quality Stroke Does the patient have a stroke diagnosis?: No VTE Prior VTE?: No VTE Risk Level:: Medical - moderate - high VTE Device Contraindication: Treatment Not Indicated VTE Drug Contraindication: N/A - Med Ordered
[2021-08-02] MEDS: Docusate Sodium 100 MG CAPSULE PO (08:59)
[2021-08-02] MEDS: Ferrous Sulfate 300 MG/5 ML LIQUID PO ×2 (08:59→16:58)
[2021-08-02] MEDS: Thiamine HCL 100 MG TABLET PO (08:59)
[2021-08-02 15:23] VITALS: BP 120/71; PULSE 80; RESP 17; TEMP 36.6; O2SAT 95
[2021-08-02] MEDS: Multivitamin TABLET 1 TAB PO (19:50)
[2021-08-02 23:59] VITALS: BP 118/70; PULSE 72; RESP 18; TEMP 36.4; O2SAT 94
[2021-08-03] MEDS: Enoxaparin Sodium 40 MG/0.4 ML SYRINGE SUBCUT (05:11)
[2021-08-03] MEDS: Omeprazole 20 MG CAPSULE.DR PO (05:13)
--- NOTE | 2021-08-03 07:27 | HO.PM.IMPN ---
Subjective Subjective Date of Service: 08/03/21 Interval History: No new complaints, no events overnight. 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 alert oriented to self and hospital, no acute distress neck no JVD Resp:? CTA bilateral CVS: S1,S2,RRR GI:? abdomen soft, nontender, bowel sounds audible Skin: No rash Neuro:? motor grossly intact Psych:? poor insight Objective Data Active Medications Acetaminophen (Acetaminophen 325 Mg Tablet) 650 mg PO Q6H PRN PRN Reason: Pain, Mild (Pain Scale 1-3) Benzonatate (Benzonatate 100 Mg Capsule) 200 mg PO TID PRN PRN Reason: cough Last Admin: 07/13/21 16:52 Dose: 200 mg Documented by: COTMARCIE Docusate Sodium (Docusate Sodium 100 Mg Capsule) 100 mg PO DAILY [facility] Last Admin: 08/02/21 08:59 Dose: 100 mg Documented by: LINDA Enoxaparin Sodium (Enoxaparin Sodium 40 Mg/0.4 Ml Syringe) 40 mg SUBCUT Q24H [facility] Last Admin: 08/03/21 05:11 Dose: 40 mg Documented by: NICOLAS Ferrous Sulfate (Ferrous Sulfate 300 Mg/5 Ml Liquid) 300 mg PO BIDWM [facility] Last Admin: 08/02/21 16:58 Dose: 300 mg Documented by: LINDA Guaifenesin/Dextromethorphan (Guaifenesin Dm 200/20/10 Ml 10 Ml Syrup) 5 ml PO Q4H PRN PRN Reason: cough Multivitamins/Vitamin C (Multivitamin Tablet) 1 tab PO BEDTIME [facility] Last Admin: 08/02/21 19:50 Dose: 1 tab Documented by: NICOLAS Omeprazole (Omeprazole 20 Mg Capsule.) 20 mg PO DAILY@0630 [facility] Last Admin: 08/03/21 05:13 Dose: 20 mg Documented by: NICOLAS Ondansetron HCl (Ondansetron Hcl 4 Mg/2 Ml Vial) 4 mg IVPUSH Q8H PRN PRN Reason: Nausea and Vomiting Polyethylene Glycol (Polyethylene Glycol 3350 17 Gm Powd.Pack) 17 gm PO DAILY [facility] Last Admin: 08/02/21 08:59 Dose: Not Given Documented by: LINDA Non-Admin Reason: Patient Refused Sodium Chloride (0.9 % Sodium Chloride Flush 3 Ml Syringe) 3 ml IVFLUSH QSHIFT [facility] Last Admin: 08/03/21 02:10 Dose: Not Given Documented by: NICOLAS Non-Admin Reason: no acess Thiamine HCl (Thiamine Hcl 100 Mg Tablet) 100 mg PO DAILY [facility] Last Admin: 08/02/21 08:59 Dose: 100 mg Documented by: LINDA Labs CBC & Chem 7: 07/11/21 05:53 07/12/21 05:18 Assessment and Plan (1) Toxic encephalopathy: Status: Acute Plan 46-year-old female with of substance abuse presents to the hospital with confusion found to lack capacity to make medical decisions and awaiting placement Toxic metabolic encephalopathy- suspected secondary to polysubstance abuse urine toxicology was noted for cocaine, fentanyl, and marijuana although the patient adamantly denies using any illicit substance, her parents confirmed that she was actively using substances seen by neurology, brain changes on imaging consistent with cocaine abuse as per PT/OT she needs 28/09 supervision parents are unable to provide care for her at this point and prefer she goes to a rehab Pych reassessed on 07/23 and she does not have capacity to make decisions, healthcare proxy has been invoked, caseworker intake looking for bed Seen by speech therapy August 01 they found patient to have severely impaired memory, executive functions, language mild impairment in attention and visuospatial skills they recommend to continue speech therapy. E Coli UTI completed course of Abx DVT prophylaxis Lovenox need for inpatient due to toxic metabolic encephalopathy, waiting safe disposition given that she needs 24-hour observation. Family not able to care for her at home. Quality Stroke Does the patient have a stroke diagnosis?: No VTE Prior VTE?: No VTE Risk Level:: Medical - moderate - high VTE Device Contraindication: Treatment Not Indicated VTE Drug Contraindication: N/A - Med Ordered
[2021-08-03 07:36] VITALS: BP 118/83; PULSE 78; RESP 17; TEMP 36.2; O2SAT 95
[2021-08-03] MEDS: Ferrous Sulfate 300 MG/5 ML LIQUID PO ×2 (09:15→16:03)
[2021-08-03] MEDS: polyethylene glycoL 3350 17 GM POWD.PACK PO (09:15)
[2021-08-03] MEDS: Thiamine HCL 100 MG TABLET PO (09:15)
[2021-08-03] MEDS: Docusate Sodium 100 MG CAPSULE PO (09:15)
[2021-08-03 15:46] VITALS: BP 122/73; PULSE 75; RESP 17; TEMP 36.4; O2SAT 95
[2021-08-03] MEDS: Multivitamin TABLET 1 TAB PO (19:52)
[2021-08-03 23:19] VITALS: BP 112/68; PULSE 67; RESP 17; TEMP 36.2; O2SAT 93
[2021-08-04] MEDS: Enoxaparin Sodium 40 MG/0.4 ML SYRINGE SUBCUT (05:22)
[2021-08-04] MEDS: Omeprazole 20 MG CAPSULE.DR PO (05:22)
[2021-08-04 07:41] VITALS: BP 125/77; PULSE 76; RESP 18; TEMP 36.4; O2SAT 97
[2021-08-04] MEDS: Thiamine HCL 100 MG TABLET PO (08:48)
[2021-08-04] MEDS: polyethylene glycoL 3350 17 GM POWD.PACK PO (08:48)
[2021-08-04] MEDS: Ferrous Sulfate 300 MG/5 ML LIQUID PO ×2 (08:48→17:37)
[2021-08-04] MEDS: Docusate Sodium 100 MG CAPSULE PO (08:48)
--- NOTE | 2021-08-04 11:52 | P.PNIM_ITS ---
Subjective Subjective Date of Service: 08/04/21 Interval History: No acute issues overnight patient denies any complaints, no fevers no chills, no nausea no vomiting no abdominal pain tolerating diet ambulating in hallways. Review of Systems Review of Systems: Yes all other systems are reviewed and are negative Physical Exam Vital Signs: Vital Signs: Last Vital Signs Temp 97.6 F 08/04/21 07:41 Pulse 76 08/04/21 07:41 Resp 18 08/04/21 07:41 BP 125/77 08/04/21 07:41 Pulse Ox 97 08/04/21 07:41 BMI result Body Mass Index 28.3 Const: Other: General:? alert oriented to self and hospital, no acute distress neck no JVD Resp:? CTA bilateral CVS: S1,S2,RRR GI:? abdomen soft, nontender, bowel sounds audible Skin: No rash Neuro:? motor grossly intact Psych:? poor insight Objective Data Active Medications Acetaminophen (Acetaminophen 325 Mg Tablet) 650 mg PO Q6H PRN PRN Reason: Pain, Mild (Pain Scale 1-3) Benzonatate (Benzonatate 100 Mg Capsule) 200 mg PO TID PRN PRN Reason: cough Last Admin: 07/13/21 16:52 Dose: 200 mg Documented by: ROXANA Docusate Sodium (Docusate Sodium 100 Mg Capsule) 100 mg PO DAILY [facility] Last Admin: 08/04/21 08:48 Dose: 100 mg Documented by: RONALDO Enoxaparin Sodium (Enoxaparin Sodium 40 Mg/0.4 Ml Syringe) 40 mg SUBCUT Q24H [facility] Last Admin: 08/04/21 05:22 Dose: 40 mg Documented by: IRIS Ferrous Sulfate (Ferrous Sulfate 300 Mg/5 Ml Liquid) 300 mg PO BIDWM [facility] Last Admin: 08/04/21 08:48 Dose: 300 mg Documented by: RONALDO Guaifenesin/Dextromethorphan (Guaifenesin Dm 200/20/10 Ml 10 Ml Syrup) 5 ml PO Q4H PRN PRN Reason: cough Multivitamins/Vitamin C (Multivitamin Tablet) 1 tab PO BEDTIME [facility] Last Admin: 08/03/21 19:52 Dose: 1 tab Documented by: IRIS Omeprazole (Omeprazole 20 Mg Jovani.) 20 mg PO DAILY@0630 [facility] Last Admin: 08/04/21 05:22 Dose: 20 mg Documented by: IRIS Ondansetron HCl (Ondansetron Hcl 4 Mg/2 Ml Vial) 4 mg IVPUSH Q8H PRN PRN Reason: Nausea and Vomiting Polyethylene Glycol (Polyethylene Glycol 3350 17 Gm Powd.Pack) 17 gm PO DAILY [facility] Last Admin: 08/04/21 08:48 Dose: 17 gm Documented by: RONALDO Sodium Chloride (0.9 % Sodium Chloride Flush 3 Ml Syringe) 3 ml IVFLUSH QSHIFT [facility] Last Admin: 08/04/21 08:48 Dose: Not Given Documented by: RONALDO Non-Admin Reason: No Access Thiamine HCl (Thiamine Hcl 100 Mg Tablet) 100 mg PO DAILY [facility] Last Admin: 08/04/21 08:48 Dose: 100 mg Documented by: RONALDO Labs CBC & Chem 7: 07/11/21 05:53 07/12/21 05:18 Assessment and Plan (1) Toxic encephalopathy: Status: Acute Plan 46-year-old female with of substance abuse presents to the hospital with renetta gonzalez found to lack capacity to make medical decisions and awaiting placement Toxic metabolic encephalopathy- suspected secondary to polysubstance abuse urine toxicology was noted for cocaine, fentanyl, and marijuana although the patient adamantly denies using any illicit substance, her parents confirmed that she was actively using substances seen by neurology, brain changes on imaging consistent with cocaine abuse as per PT/OT she needs 28/09 supervision parents are unable to provide care for her at this point and prefer she goes to a rehab Pych reassessed on 07/23 and she does not have capacity to make decisions, healthcare proxy has been invoked, caseworker intake looking for bed Seen by speech therapy August 01 they found patient to have severely impaired memory, executive functions, language mild impairment in attention and visuospatial skills they recommend to continue speech therapy. E Coli UTI completed course of Abx DVT prophylaxis Lovenox need for inpatient due to toxic metabolic encephalopathy, waiting safe disposition given that she needs 24-hour observation. Family not able to care for her at home. Quality Stroke Does the patient have a stroke diagnosis?: No VTE Prior VTE?: No VTE Risk Level:: Medical - moderate - high VTE Device Contraindication: Treatment Not Indicated VTE Drug Contraindication: N/A - Med Ordered
[2021-08-04 15:30] VITALS: BP 114/73; PULSE 73; RESP 18; TEMP 36.1; O2SAT 96
[2021-08-04] MEDS: Multivitamin TABLET 1 TAB PO (22:20)
[2021-08-04 23:18] VITALS: BP 111/59; PULSE 75; RESP 17; TEMP 36.1; O2SAT 92
[2021-08-05] MEDS: Enoxaparin Sodium 40 MG/0.4 ML SYRINGE SUBCUT (05:31)
[2021-08-05] MEDS: Omeprazole 20 MG CAPSULE.DR PO (05:31)
[2021-08-05 07:06] VITALS: BP 107/74; PULSE 71; RESP 16; TEMP 36.2; O2SAT 95
[2021-08-05] MEDS: Docusate Sodium 100 MG CAPSULE PO (09:10)
[2021-08-05] MEDS: Ferrous Sulfate 300 MG/5 ML LIQUID PO ×2 (09:10→17:48)
[2021-08-05] MEDS: polyethylene glycoL 3350 17 GM POWD.PACK PO (09:10)
[2021-08-05] MEDS: Thiamine HCL 100 MG TABLET PO (09:10)
--- NOTE | 2021-08-05 11:32 | HO.PM.IMPN ---
Subjective Subjective Date of Service: 08/05/21 Interval History: Offers no acute complaints resting comfortably, tolerating diet, no nausea no vomiting, no diarrhea no acute overnight events. Review of Systems Review of Systems: Yes all other systems are reviewed and are negative Physical Exam Vital Signs: Vital Signs: Last Vital Signs Temp 97.2 F 08/05/21 07:06 Pulse 71 08/05/21 07:06 Resp 16 08/05/21 07:06 BP 107/74 08/05/21 07:06 Pulse Ox 95 08/05/21 07:06 BMI result Body Mass Index 28.3 Const: Other: General:? alert oriented to self and hospital, no acute distress neck no JVD Resp:? CTA bilateral CVS: S1,S2,RRR GI:? abdomen soft, nontender, bowel sounds audible Skin: No rash Neuro:? motor grossly intact Psych:? poor insight Objective Data Active Medications Acetaminophen (Acetaminophen 325 Mg Tablet) 650 mg PO Q6H PRN PRN Reason: Pain, Mild (Pain Scale 1-3) Benzonatate (Benzonatate 100 Mg Capsule) 200 mg PO TID PRN PRN Reason: cough Last Admin: 07/13/21 16:52 Dose: 200 mg Documented by: COTEMA Docusate Sodium (Docusate Sodium 100 Mg Capsule) 100 mg PO DAILY [facility] Last Admin: 08/05/21 09:10 Dose: 100 mg Documented by: IVANNA Enoxaparin Sodium (Enoxaparin Sodium 40 Mg/0.4 Ml Syringe) 40 mg SUBCUT Q24H [facility] Last Admin: 08/05/21 05:31 Dose: 40 mg Documented by: ALAN Ferrous Sulfate (Ferrous Sulfate 300 Mg/5 Ml Liquid) 300 mg PO BIDWM [facility] Last Admin: 08/05/21 09:10 Dose: 300 mg Documented by: IVANNA Guaifenesin/Dextromethorphan (Guaifenesin Dm 200/20/10 Ml 10 Ml Syrup) 5 ml PO Q4H PRN PRN Reason: cough Multivitamins/Vitamin C (Multivitamin Tablet) 1 tab PO BEDTIME [facility] Last Admin: 08/04/21 22:20 Dose: 1 tab Documented by: ALAN Omeprazole (Omeprazole 20 Mg Jovani.) 20 mg PO DAILY@0630 [facility] Last Admin: 08/05/21 05:31 Dose: 20 mg Documented by: ALAN Ondansetron HCl (Ondansetron Hcl 4 Mg/2 Ml Vial) 4 mg IVPUSH Q8H PRN PRN Reason: Nausea and Vomiting Polyethylene Glycol (Polyethylene Glycol 3350 17 Gm Powd.Pack) 17 gm PO DAILY [facility] Last Admin: 08/05/21 09:10 Dose: 17 gm Documented by: IVANNA Sodium Chloride (0.9 % Sodium Chloride Flush 3 Ml Syringe) 3 ml IVFLUSH QSHIFT [facility] Last Admin: 08/05/21 09:10 Dose: Not Given Documented by: IVANNA Non-Admin Reason: No Access Thiamine HCl (Thiamine Hcl 100 Mg Tablet) 100 mg PO DAILY [facility] Last Admin: 08/05/21 09:10 Dose: 100 mg Documented by: IVANNA Labs CBC & Chem 7: 07/11/21 05:53 07/12/21 05:18 Assessment and Plan (1) Toxic encephalopathy: Status: Acute Plan 46-year-old female with of substance abuse presents to the hospital with confusion found to lack capacity to make medical decisions and awaiting placement Toxic metabolic encephalopathy- suspected secondary to polysubstance abuse urine toxicology was noted for cocaine, fentanyl, and marijuana although the patient adamantly denies using any illicit substance, her parents confirmed that she was actively using substances seen by neurology, brain changes on imaging consistent with cocaine abuse as per PT/OT she needs 28/09 supervision parents are unable to provide care for her at this point and prefer she goes to a rehab Pych reassessed on 07/23 and she does not have capacity to make decisions, healthcare proxy has been invoked, classification case manager looking for bed Seen by speech therapy August 01 they found patient to have severely impaired memory, executive functions, language mild impairment in attention and visuospatial skills they recommend to continue speech therapy. E Coli UTI completed course of Abx DVT prophylaxis Lovenox need for inpatient due to toxic metabolic encephalopathy, waiting safe disposition given that she needs 24-hour observation. Family not able to care for her at home. Quality Stroke Does the patient have a stroke diagnosis?: No VTE Prior VTE?: No VTE Risk Level:: Medical - moderate - high VTE Device Contraindication: Treatment Not Indicated VTE Drug Contraindication: N/A - Med Ordered
[2021-08-05 15:03] VITALS: BP 116/71; PULSE 87; RESP 18; TEMP 36.2; O2SAT 91
[2021-08-05] MEDS: Multivitamin TABLET 1 TAB PO (21:48)
[2021-08-05 23:20] VITALS: BP 110/62; PULSE 79; RESP 17; TEMP 37; O2SAT 93
[2021-08-06] MEDS: Omeprazole 20 MG CAPSULE.DR PO (05:38)
[2021-08-06] MEDS: Enoxaparin Sodium 40 MG/0.4 ML SYRINGE SUBCUT (05:38)
[2021-08-06] MEDS: Docusate Sodium 100 MG CAPSULE PO (07:40)
[2021-08-06] MEDS: Thiamine HCL 100 MG TABLET PO (07:40)
[2021-08-06] MEDS: polyethylene glycoL 3350 17 GM POWD.PACK PO (07:40)
[2021-08-06] MEDS: Ferrous Sulfate 300 MG/5 ML LIQUID PO ×2 (07:40→18:22)
[2021-08-06 07:55] VITALS: BP 109/76; PULSE 71; RESP 18; TEMP 36.7; O2SAT 94
--- NOTE | 2021-08-06 15:03 | P.PNIM_ITS ---
Subjective Subjective Date of Service: 08/06/21 Interval History: Sitting comfortably, eating breakfast offers no acute complaints of pain no nausea and no vomiting, had an uneventful night. Review of Systems Review of Systems: Yes all other systems are reviewed and are negative Physical Exam Vital Signs: Vital Signs: Last Vital Signs Temp 98.0 F 08/06/21 07:55 Pulse 71 08/06/21 07:55 Resp 18 08/06/21 07:55 BP 109/76 08/06/21 07:55 Pulse Ox 94 08/06/21 07:55 BMI result Body Mass Index 28.3 Const: Other: General:? alert oriented to self and hospital, no acute distress neck no JVD Resp:? CTA bilateral CVS: S1,S2,RRR GI:? abdomen soft, nontender, bowel sounds audible Skin: No rash Neuro:? motor grossly intact Psych:? poor insight Objective Data Active Medications Acetaminophen (Acetaminophen 325 Mg Tablet) 650 mg PO Q6H PRN PRN Reason: Pain, Mild (Pain Scale 1-3) Benzonatate (Benzonatate 100 Mg Capsule) 200 mg PO TID PRN PRN Reason: cough Last Admin: 07/13/21 16:52 Dose: 200 mg Documented by: COTMARCIE Docusate Sodium (Docusate Sodium 100 Mg Capsule) 100 mg PO DAILY [facility] Last Admin: 08/06/21 07:40 Dose: 100 mg Documented by: TEMO Enoxaparin Sodium (Enoxaparin Sodium 40 Mg/0.4 Ml Syringe) 40 mg SUBCUT Q24H [facility] Last Admin: 08/06/21 05:38 Dose: 40 mg Documented by: ALAN Ferrous Sulfate (Ferrous Sulfate 300 Mg/5 Ml Liquid) 300 mg PO BIDWM [facility] Last Admin: 08/06/21 07:40 Dose: 300 mg Documented by: TEMO Guaifenesin/Dextromethorphan (Guaifenesin Dm 200/20/10 Ml 10 Ml Syrup) 5 ml PO Q4H PRN PRN Reason: cough Multivitamins/Vitamin C (Multivitamin Tablet) 1 tab PO BEDTIME [facility] Last Admin: 08/05/21 21:48 Dose: 1 tab Documented by: ALAN Omeprazole (Omeprazole 20 Mg Jovani.) 20 mg PO DAILY@0630 [facility] Last Admin: 08/06/21 05:38 Dose: 20 mg Documented by: ALAN Ondansetron HCl (Ondansetron Hcl 4 Mg/2 Ml Vial) 4 mg IVPUSH Q8H PRN PRN Reason: Nausea and Vomiting Polyethylene Glycol (Polyethylene Glycol 3350 17 Gm Powd.Pack) 17 gm PO DAILY [facility] Last Admin: 08/06/21 07:40 Dose: 17 gm Documented by: TEMO Sodium Chloride (0.9 % Sodium Chloride Flush 3 Ml Syringe) 3 ml IVFLUSH QSHIFT [facility] Last Admin: 08/06/21 07:40 Dose: Not Given Documented by: TEMO Non-Admin Reason: No Access Thiamine HCl (Thiamine Hcl 100 Mg Tablet) 100 mg PO DAILY [facility] Last Admin: 08/06/21 07:40 Dose: 100 mg Documented by: TEMO Labs CBC & Chem 7: 07/11/21 05:53 07/12/21 05:18 Assessment and Plan (1) Toxic encephalopathy: Status: Acute Plan 46-year-old female with of substance abuse presents to the hospital with confusion found to lack capacity to make medical decisions and awaiting placement Toxic metabolic encephalopathy- suspected secondary to polysubstance abuse urine toxicology positive for cocaine, fentanyl, and marijuana although the patient adamantly denies using any illicit substance, her parents confirmed that she was actively using substances seen by neurology, brain changes on imaging consistent with cocaine abuse as per PT/OT she needs 28/09 supervision parents are unable to provide care for her at this point and prefer she goes to a rehab Pych reassessed on 07/23 and she does not have capacity to make decisions, healt hcare proxy has been invoked, telephonic case manager looking for bed Seen by speech therapy August 01 they found patient to have severely impaired memory, executive functions, language mild impairment in attention and visuospatial skills they recommend to continue speech therapy. E Coli UTI completed course of Abx DVT prophylaxis Lovenox need for inpatient due to toxic metabolic encephalopathy, waiting safe disposition given that she needs 24-hour observation. Family not able to care for her at home. Quality Stroke Does the patient have a stroke diagnosis?: No VTE Prior VTE?: No VTE Risk Level:: Medical - moderate - high VTE Device Contraindication: Treatment Not Indicated VTE Drug Contraindication: N/A - Med Ordered
[2021-08-06 15:13] VITALS: BP 112/71; PULSE 92; RESP 18; TEMP 36.7; O2SAT 91
--- NOTE | 2021-08-06 15:20 | MHC.CM.PN ---
electronicmedicql record reviewed along with case discussed with staff nrmanuelito hosptialtist and and patient and case manger technical administrative assistant , still working on securing correction care placement bed , patient need ot/speech for ognitive caodaism and is bnot able to make her own decisions lack capacity , health care proxy has been envoked , [facility] fincial working to get her [employer] cahnegd to [facility] [employer] , barriera are active drug hx and her age 46 yesr lyc facilities [facility] [place] [place] [facility] respiratory care technician to continue to follwo and make referrals
[2021-08-06] MEDS: Multivitamin TABLET 1 TAB PO (18:22)
[2021-08-06 23:23] VITALS: BP 103/62; PULSE 79; RESP 17; TEMP 36.3; O2SAT 96
[2021-08-07] MEDS: Omeprazole 20 MG CAPSULE.DR PO (05:45)
[2021-08-07] MEDS: Enoxaparin Sodium 40 MG/0.4 ML SYRINGE SUBCUT (05:47)
[2021-08-07 07:56] VITALS: BP 114/72; PULSE 71; RESP 17; TEMP 36.2; O2SAT 95
[2021-08-07] MEDS: Ferrous Sulfate 300 MG/5 ML LIQUID PO ×2 (09:01→18:27)
[2021-08-07] MEDS: Thiamine HCL 100 MG TABLET PO (09:01)
[2021-08-07] MEDS: Docusate Sodium 100 MG CAPSULE PO (09:01)
[2021-08-07] MEDS: polyethylene glycoL 3350 17 GM POWD.PACK PO (09:01)
--- NOTE | 2021-08-07 10:05 | HO.PM.IMPN ---
Subjective Subjective Date of Service: 08/07/21 Interval History: Offers no acute complaints, had an uneventful night waiting for placement. Review of Systems Review of Systems: Yes all other systems are reviewed and are negative Physical Exam Vital Signs: Vital Signs: Last Vital Signs Temp 97.1 F 08/07/21 07:56 Pulse 71 08/07/21 07:56 Resp 17 08/07/21 07:56 BP 114/72 08/07/21 07:56 Pulse Ox 95 08/07/21 07:56 BMI result Body Mass Index 28.3 Const: Other: General:? alert oriented to self and hospital, no acute distress neck no JVD Resp:? CTA bilateral CVS: S1,S2,RRR GI:? abdomen soft, nontender, bowel sounds audible Skin: No rash Neuro:? motor grossly intact Psych:? poor insight Objective Data Active Medications Acetaminophen (Acetaminophen 325 Mg Tablet) 650 mg PO Q6H PRN PRN Reason: Pain, Mild (Pain Scale 1-3) Benzonatate (Benzonatate 100 Mg Capsule) 200 mg PO TID PRN PRN Reason: cough Last Admin: 07/13/21 16:52 Dose: 200 mg Documented by: ROXANA Docusate Sodium (Docusate Sodium 100 Mg Capsule) 100 mg PO DAILY [facility] Last Admin: 08/07/21 09:01 Dose: 100 mg Documented by: IVANNA Enoxaparin Sodium (Enoxaparin Sodium 40 Mg/0.4 Ml Syringe) 40 mg SUBCUT Q24H [facility] Last Admin: 08/07/21 05:47 Dose: 40 mg Documented by: JUAN Ferrous Sulfate (Ferrous Sulfate 300 Mg/5 Ml Liquid) 300 mg PO BIDWM [facility] Last Admin: 08/07/21 09:01 Dose: 300 mg Documented by: IVANNA Guaifenesin/Dextromethorphan (Guaifenesin Dm 200/20/10 Ml 10 Ml Syrup) 5 ml PO Q4H PRN PRN Reason: cough Multivitamins/Vitamin C (Multivitamin Tablet) 1 tab PO BEDTIME [facility] Last Admin: 08/06/21 18:22 Dose: 1 tab Documented by: JUAN Omeprazole (Omeprazole 20 Mg Jovani.) 20 mg PO DAILY@0630 [facility] Last Admin: 08/07/21 05:45 Dose: 20 mg Documented by: JUAN Ondansetron HCl (Ondansetron Hcl 4 Mg/2 Ml Vial) 4 mg IVPUSH Q8H PRN PRN Reason: Nausea and Vomiting Polyethylene Glycol (Polyethylene Glycol 3350 17 Gm Powd.Pack) 17 gm PO DAILY [facility] Last Admin: 08/07/21 09:01 Dose: 17 gm Documented by: IVANNA Sodium Chloride (0.9 % Sodium Chloride Flush 3 Ml Syringe) 3 ml IVFLUSH QSHIFT [facility] Last Admin: 08/07/21 09:01 Dose: Not Given Documented by: IVANNA Non-Admin Reason: No Access Thiamine HCl (Thiamine Hcl 100 Mg Tablet) 100 mg PO DAILY [facility] Last Admin: 08/07/21 09:01 Dose: 100 mg Documented by: IVANNA Labs CBC & Chem 7: 07/11/21 05:53 07/12/21 05:18 Assessment and Plan (1) Toxic encephalopathy: Status: Acute Plan 46-year-old female with of substance abuse presents to the hospital with confusion found to lack capacity to make medical decisions and awaiting placement Toxic metabolic encephalopathy- suspected secondary to polysubstance abuse urine toxicology positive for cocaine, fentanyl, and marijuana although the patient adamantly denies using any illicit substance, her parents confirmed that she was actively using substances seen by neurology, brain changes on imaging consistent with cocaine abuse as per PT/OT she needs 28/09 supervision parents are unable to provide care for her at this point and prefer she goes to a rehab Pych reassessed on 07/23 and she does not have capacity to make decisions, healthcare proxy has been invoked, field case manager looking for bed Seen by speech therapy August 01 they found patient to have severely impaired memory, executive functions, language mild impairment in attention and visuospatial skills they recommend to continue speech therapy. E Coli UTI completed course of Abx DVT prophylaxis Lovenox need for inpatient due to moderate cognitive linguistic impairment , waiting safe disposition given that she needs 24-hour observation. Family not able to care for her at home. Quality Stroke Does the patient have a stroke diagnosis?: No VTE Prior VTE?: No VTE Risk Level:: Medical - moderate - high VTE Device Contraindication: Treatment Not Indicated VTE Drug Contraindication: N/A - Med Ordered
--- NOTE | 2021-08-07 11:59 | PC.NURSE ---
patient took a shower today, bed linen changed.
[2021-08-07 15:20] VITALS: BP 108/62; PULSE 82; RESP 18; TEMP 36.8; O2SAT 98
[2021-08-07] MEDS: Multivitamin TABLET 1 TAB PO (19:51)
[2021-08-07 23:18] VITALS: BP 110/72; PULSE 86; RESP 17; TEMP 36.1; O2SAT 95
[2021-08-08] MEDS: Omeprazole 20 MG CAPSULE.DR PO (05:51)
[2021-08-08] MEDS: Enoxaparin Sodium 40 MG/0.4 ML SYRINGE SUBCUT (05:51)
[2021-08-08 07:17] VITALS: BP 110/68; PULSE 76; RESP 18; TEMP 36.2; O2SAT 92
[2021-08-08] MEDS: Thiamine HCL 100 MG TABLET PO (07:44)
[2021-08-08] MEDS: Ferrous Sulfate 300 MG/5 ML LIQUID PO ×2 (07:44→17:09)
[2021-08-08] MEDS: Docusate Sodium 100 MG CAPSULE PO (07:44)
[2021-08-08] MEDS: polyethylene glycoL 3350 17 GM POWD.PACK PO (07:44)
--- NOTE | 2021-08-08 10:47 | MHC.SLORD ---
Speech Language Pathology Order Status: Today patient is doing well with her ability to respond to confrontational naming tasks. She is adding items in a list, asking questions and providing the details to complete a task. There were no domains of conversational language that she struggled with and I shared that I would be supporting her plan to return to her home when her other systems were cleared.
--- NOTE | 2021-08-08 11:28 | HO.PM.IMPN ---
Subjective Subjective Date of Service: 08/08/21 Interval History: Offers no acute complaints sitting comfortably on bed, no acute issues overnight, tolerating diet. Review of Systems Review of Systems: Yes all other systems are reviewed and are negative Physical Exam Vital Signs: Vital Signs: Last Vital Signs Temp 97.1 F 08/08/21 07:17 Pulse 76 08/08/21 07:17 Resp 18 08/08/21 07:17 BP 110/68 08/08/21 07:17 Pulse Ox 92 08/08/21 07:17 BMI result Body Mass Index 28.3 Const: Other: General:? alert or iented to self and hospital, no acut e distress neck no JVD Resp:? CTA bi lateral CVS: S1,S2 ,RRR GI:? abdomen soft, nontender, b owel sounds audibl e Skin: No rash Ne uro:? motor grossl y intact Psych:? p oor insight Objective Data Active Medications Acetaminophen (Acetaminophen 325 Mg Tablet) 650 mg PO Q6H PRN PRN Reason: Pain, Mild (Pain Scale 1-3) Benzonatate (Benzonatate 100 Mg Capsule) 200 mg PO TID PRN PRN Reason: cough Last Admin: 07/13/21 16:52 Dose: 200 mg Documented by: COTMARCIE Docusate Sodium (Docusate Sodium 100 Mg Capsule) 100 mg PO DAILY [facility] Last Admin: 08/08/21 07:44 Dose: 100 mg Documented by: RONALDO Enoxaparin Sodium (Enoxaparin Sodium 40 Mg/0.4 Ml Syringe) 40 mg SUBCUT Q24H [facility] Last Admin: 08/08/21 05:51 Dose: 40 mg Documented by: JUAN Ferrous Sulfate (Ferrous Sulfate 300 Mg/5 Ml Liquid) 300 mg PO BIDWM [facility] Last Admin: 08/08/21 07:44 Dose: 300 mg Documented by: RONALDO Guaifenesin/Dextromethorphan (Guaifenesin Dm 200/20/10 Ml 10 Ml Syrup) 5 ml PO Q4H PRN PRN Reason: cough Multivitamins/Vitamin C (Multivitamin Tablet) 1 tab PO BEDTIME [facility] Last Admin: 08/07/21 19:51 Dose: 1 tab Documented by: JUAN Omeprazole (Omeprazole 20 Mg Jovani.) 20 mg PO DAILY@0630 [facility] Last Admin: 08/08/21 05:51 Dose: 20 mg Documented by: JUAN Ondansetron HCl (Ondansetron Hcl 4 Mg/2 Ml Vial) 4 mg IVPUSH Q8H PRN PRN Reason: Nausea and Vomiting Polyethylene Glycol (Polyethylene Glycol 3350 17 Gm Powd.Pack) 17 gm PO DAILY [facility] Last Admin: 08/08/21 07:44 Dose: 17 gm Documented by: RONALDO Sodium Chloride (0.9 % Sodium Chloride Flush 3 Ml Syringe) 3 ml IVFLUSH QSHIFT [facility] Last Admin: 08/08/21 07:44 Dose: Not Given Documented by: RONALDO Non-Admin Reason: No Access Thiamine HCl (Thiamine Hcl 100 Mg Tablet) 100 mg PO DAILY [facility] Last Admin: 08/08/21 07:44 Dose: 100 mg Documented by: RONALDO Labs CBC & Chem 7: 07/11/21 05:53 07/12/21 05:18 Assessment and Plan (1) Toxic encephalopathy: Status: Acute Plan 46-year-old female with of substance abuse presents to the hospital with confusion found to lack capacity to make medical decisions and awaiting placement Toxic metabolic encephalopathy- suspected secondary to polysubstance abuse urine toxicology positive for cocaine, fentanyl, and marijuana although the patient adamantly denies using any illicit substance, her parents confirmed that she was actively using substances seen by neurology, brain changes on imaging consistent with cocaine abuse as per PT/OT she needs 28/09 supervision parents are unable to provide care for her at this point and prefer she goes to a rehab Pych reassessed on 07/23 and she does not have capacity to make decisions, healthcare proxy has been invoked, caser up looking for bed Seen by speech therapy August 01 they found patient to have severely impaired memory, executive functions, language mild impairment in attention and visuospatial skills they recommend to continue speech therapy. E Coli UTI completed course of Abx DVT prophylaxis Lovenox need for inpatient due to moderate cognitive linguistic impairment , waiting safe disposition given that she needs 24-hour observation. Family not able to care for her at home. Quality Stroke Does the patient have a stroke diagnosis?: No VTE Prior VTE?: No VTE Risk Level:: Medical - moderate - high VTE Device Contraindication: Treatment Not Indicated VTE Drug Contraindication: N/A - Med Ordered
[2021-08-08 14:54] VITALS: BP 101/57; PULSE 80; RESP 20; TEMP 37.1; O2SAT 94
--- NOTE | 2021-08-08 16:33 | MHC.CM.PN ---
Nurse Cse licensed psychologist manager note electronic medical record reviewed along with case discussed with lee , read speech n0te from today ( Speech Language Pathology Order Status: Today patient is doing well with her ability to respond to confrontational naming tasks. She is adding items in a list, asking questions and providing the details to complete a task. There were no domains of conversational language that she struggled with and I shared that I would be supporting her plan to return to her home when her other systems were cleared. ) [facility] resent this speech information to [facility] willing to go out of contract for str to meet patients needs ans she also [facility]
[2021-08-08] MEDS: Multivitamin TABLET 1 TAB PO (19:31)
[2021-08-08 23:33] VITALS: BP 99/55; PULSE 88; RESP 20; TEMP 36.8; O2SAT 95
[2021-08-09] MEDS: Omeprazole 20 MG CAPSULE.DR PO (05:32)
[2021-08-09] MEDS: Enoxaparin Sodium 40 MG/0.4 ML SYRINGE SUBCUT (05:32)
[2021-08-09 08:00] VITALS: BP 120/74; PULSE 76; RESP 16; TEMP 36.9; O2SAT 94
[2021-08-09] MEDS: Thiamine HCL 100 MG TABLET PO (09:22)
[2021-08-09] MEDS: polyethylene glycoL 3350 17 GM POWD.PACK PO (09:22)
[2021-08-09] MEDS: Ferrous Sulfate 300 MG/5 ML LIQUID PO ×2 (09:22→16:30)
[2021-08-09] MEDS: Docusate Sodium 100 MG CAPSULE PO (09:22)
--- NOTE | 2021-08-09 09:51 | P.PNIM_ITS ---
Subjective Subjective Date of Service: 08/09/21 Interval History: no acute complaints, eating breakfast, no events overnight, no nausea, no vomiting, no fevers, no chills no urinary symptoms of dysuria or urgency. Review of Systems Review of Systems: Yes all other systems are reviewed and are negative Physical Exam Vital Signs: Vital Signs: Last Vital Signs Temp 98.5 F 08/09/21 08:00 Pulse 76 08/09/21 08:00 Resp 16 08/09/21 08:00 BP 120/74 08/09/21 08:00 Pulse Ox 94 08/09/21 08:00 BMI result Body Mass Index 28.3 Const: Other: General:? alert oriented to self and hospital, no acute distress neck no JVD Resp:? CTA bilateral CVS: S1,S2,RRR GI:? abdomen soft, nontender, bowel sounds audible Skin: No rash Neuro:? motor grossly intact Psych:? poor insight Objective Data Active Medications Acetaminophen (Acetaminophen 325 Mg Tablet) 650 mg PO Q6H PRN PRN Reason: Pain, Mild (Pain Scale 1-3) Benzonatate (Benzonatate 100 Mg Capsule) 200 mg PO TID PRN PRN Reason: cough Last Admin: 07/13/21 16:52 Dose: 200 mg Documented by: COTEMA Docusate Sodium (Docusate Sodium 100 Mg Capsule) 100 mg PO DAILY [facility] Last Admin: 08/09/21 09:22 Dose: 100 mg Documented by: ALAN Enoxaparin Sodium (Enoxaparin Sodium 40 Mg/0.4 Ml Syringe) 40 mg SUBCUT Q24H [facility] Last Admin: 08/09/21 05:32 Dose: 40 mg Documented by: ALAN Ferrous Sulfate (Ferrous Sulfate 300 Mg/5 Ml Liquid) 300 mg PO BIDWM [facility] Last Admin: 08/09/21 09:22 Dose: 300 mg Documented by: ALAN Guaifenesin/Dextromethorphan (Guaifenesin Dm 200/20/10 Ml 10 Ml Syrup) 5 ml PO Q4H PRN PRN Reason: cough Multivitamins/Vitamin C (Multivitamin Tablet) 1 tab PO BEDTIME [facility] Last Admin: 08/08/21 19:31 Dose: 1 tab Documented by: ALAN Omeprazole (Omeprazole 20 Mg Capsule.) 20 mg PO DAILY@0630 [facility] Last Admin: 08/09/21 05:32 Dose: 20 mg Documented by: ALAN Ondansetron HCl (Ondansetron Hcl 4 Mg/2 Ml Vial) 4 mg IVPUSH Q8H PRN PRN Reason: Nausea and Vomiting Polyethylene Glycol (Polyethylene Glycol 3350 17 Gm Powd.Pack) 17 gm PO DAILY [facility] Last Admin: 08/09/21 09:22 Dose: 17 gm Documented by: ALAN Sodium Chloride (0.9 % Sodium Chloride Flush 3 Ml Syringe) 3 ml IVFLUSH QSHIFT [facility] Last Admin: 08/09/21 09:22 Dose: Not Given Documented by: ALAN Non-Admin Reason: No Access Thiamine HCl (Thiamine Hcl 100 Mg Tablet) 100 mg PO DAILY [facility] Last Admin: 08/09/21 09:22 Dose: 100 mg Documented by: ALAN Labs CBC & Chem 7: 07/11/21 05:53 07/12/21 05:18 Assessment and Plan (1) Toxic encephalopathy: Status: Acute Plan 46-year-old female with of substance abuse presents to the hospital with confusion found to lack capacity to make medical decisions and awaiting placement Toxic metabolic encephalopathy- suspected secondary to polysubstance abuse urine toxicology positive for cocaine, fentanyl, and marijuana although the patient adamantly denies using any illicit substance, her parents confirmed that she was actively using substances seen by neurology, brain changes on imaging consistent with cocaine abuse as per PT/OT she needs 28/09 supervision parents are unable to provide care for her at this point and prefer she goes to a rehab Pych reassessed on 07/23 and she does not have capacity to make decisions, healthcare proxy has been invoked, case managers looking for bed Seen by speech therapy August 01 they found patient to have severely impaired memory, executive functions, language mild impairment in attention and visuospatial skills they recommend to continue speech therapy. E Coli UTI completed course of Abx DVT prophylaxis Lovenox need for inpatient due to moderate cognitive linguistic impairment , waiting safe disposition given that she needs 24-hour observation. Family not able to care for her at home. Quality Stroke Does the patient have a stroke diagnosis?: No VTE Prior VTE?: No VTE Risk Level:: Medical - moderate - high VTE Device Contraindication: Treatment Not Indicated VTE Drug Contraindication: N/A - Med Ordered
[2021-08-09 14:59] VITALS: BP 117/72; PULSE 74; RESP 18; TEMP 36.7; O2SAT 96
[2021-08-09] MEDS: Multivitamin TABLET 1 TAB PO (19:48)
[2021-08-09 23:17] VITALS: BP 110/64; PULSE 78; RESP 17; TEMP 36.6; O2SAT 93
[2021-08-10] MEDS: Enoxaparin Sodium 40 MG/0.4 ML SYRINGE SUBCUT (05:16)
[2021-08-10] MEDS: Omeprazole 20 MG CAPSULE.DR PO (05:16)
[2021-08-10 07:46] VITALS: BP 109/65; PULSE 82; RESP 18; TEMP 36.4; O2SAT 93
[2021-08-10] MEDS: polyethylene glycoL 3350 17 GM POWD.PACK PO (09:15)
[2021-08-10] MEDS: Thiamine HCL 100 MG TABLET PO (09:15)
[2021-08-10] MEDS: Docusate Sodium 100 MG CAPSULE PO (09:15)
[2021-08-10] MEDS: Ferrous Sulfate 300 MG/5 ML LIQUID PO ×2 (09:15→16:54)
--- NOTE | 2021-08-10 11:32 | P.PNIM_ITS ---
Subjective Subjective Date of Service: 08/10/21 Interval History: sitting comfortably on bed, eating breakfast offers no acute complaints , is ambulatory with no issues of lightheadedness or dizziness, no acute events overnight. Review of Systems Review of Systems: Yes all other systems are reviewed and are negative Physical Exam Vital Signs: Vital Signs: Last Vital Signs Temp 97.5 F 08/10/21 07:46 Pulse 82 08/10/21 07:46 Resp 18 08/10/21 07:46 BP 109/65 08/10/21 07:46 Pulse Ox 93 08/10/21 07:46 BMI result Body Mass Index 28.3 Const: Other: General:? alert oriented to self and hospital, no acute distress neck no JVD Resp:? CTA bilateral CVS: S1,S2,RRR GI:? abdomen soft, nontender, bowel sounds audible Skin: No rash Neuro:? motor grossly intact Psych:? poor insight Objective Data Active Medications Acetaminophen (Acetaminophen 325 Mg Tablet) 650 mg PO Q6H PRN PRN Reason: Pain, Mild (Pain Scale 1-3) Benzonatate (Benzonatate 100 Mg Capsule) 200 mg PO TID PRN PRN Reason: cough Last Admin: 07/13/21 16:52 Dose: 200 mg Documented by: ROXANA Docusate Sodium (Docusate Sodium 100 Mg Capsule) 100 mg PO DAILY [facility] Last Admin: 08/10/21 09:15 Dose: 100 mg Documented by: AZEEM Enoxaparin Sodium (Enoxaparin Sodium 40 Mg/0.4 Ml Syringe) 40 mg SUBCUT Q24H [facility] Last Admin: 08/10/21 05:16 Dose: 40 mg Documented by: ALAN Ferrous Sulfate (Ferrous Sulfate 300 Mg/5 Ml Liquid) 300 mg PO BIDWM [facility] Last Admin: 08/10/21 09:15 Dose: 300 mg Documented by: AZEEM Guaifenesin/Dextromethorphan (Guaifenesin Dm 200/20/10 Ml 10 Ml Syrup) 5 ml PO Q4H PRN PRN Reason: cough Multivitamins/Vitamin C (Multivitamin Tablet) 1 tab PO BEDTIME [facility] Last Admin: 08/09/21 19:48 Dose: 1 tab Documented by: ALAN Omeprazole (Omeprazole 20 Mg Jovani.) 20 mg PO DAILY@0630 [facility] Last Admin: 08/10/21 05:16 Dose: 20 mg Documented by: ALAN Ondansetron HCl (Ondansetron Hcl 4 Mg/2 Ml Vial) 4 mg IVPUSH Q8H PRN PRN Reason: Nausea and Vomiting Polyethylene Glycol (Polyethylene Glycol 3350 17 Gm Powd.Pack) 17 gm PO DAILY [facility] Last Admin: 08/10/21 09:15 Dose: 17 gm Documented by: AZEEM Sodium Chloride (0.9 % Sodium Chloride Flush 3 Ml Syringe) 3 ml IVFLUSH QSHIFT [facility] Last Admin: 08/10/21 09:11 Dose: Not Given Documented by: AZEEM Non-Admin Reason: No Access Thiamine HCl (Thiamine Hcl 100 Mg Tablet) 100 mg PO DAILY [facility] Last Admin: 08/10/21 09:15 Dose: 100 mg Documented by: AZEEM Labs CBC & Chem 7: 07/11/21 05:53 07/12/21 05:18 Assessment and Plan (1) Toxic encephalopathy: Status: Acute Plan 46-year-old female with of substance abuse presents to the hospital with confusion found to lack capacity to make medical decisions and awaiting placemen t Toxic metabolic encephalopathy- suspected secondary to polysubstance abuse urine toxicology positive for cocaine, fentanyl, and marijuana although the patient adamantly denies using any illicit substance, her parents confirmed that she was actively using substances seen by neurology, brain changes on imaging consistent with cocaine abuse as per PT/OT she needs 28/09 supervision parents are unable to provide care for her at this point and prefer she goes to a rehab Pych reassessed on 07/23 and she does not have capacity to make decisions, healthcare proxy has been invoked, rn case manager looking for bed Seen by speech therapy August 01 they found patient to have severely impaired memory, executive functions, language mild impairment in attention and visuospatial skills they recommend to continue speech therapy. E Coli UTI completed course of Abx DVT prophylaxis Lovenox need for inpatient due to moderate cognitive linguistic impairment , waiting safe disposition given that she needs 24-hour observation. Family not able to care for her at home. Quality Stroke Does the patient have a stroke diagnosis?: No VTE Prior VTE?: No VTE Risk Level:: Medical - moderate - high VTE Device Contraindication: Treatment Not Indicated VTE Drug Contraindication: N/A - Med Ordered
[2021-08-10 15:13] VITALS: BP 112/73; PULSE 77; RESP 18; TEMP 37.1; O2SAT 93
[2021-08-10] MEDS: Multivitamin TABLET 1 TAB PO (20:39)
[2021-08-10 23:23] VITALS: BP 111/67; PULSE 75; RESP 16; TEMP 36.5; O2SAT 94
[2021-08-11] MEDS: Omeprazole 20 MG CAPSULE.DR PO (05:32)
[2021-08-11] MEDS: Enoxaparin Sodium 40 MG/0.4 ML SYRINGE SUBCUT (05:32)
[2021-08-11 08:00] VITALS: BP 111/74; PULSE 77; RESP 18; TEMP 36.8; O2SAT 93
[2021-08-11] MEDS: Thiamine HCL 100 MG TABLET PO (09:03)
[2021-08-11] MEDS: Docusate Sodium 100 MG CAPSULE PO (09:03)
[2021-08-11] MEDS: Ferrous Sulfate 300 MG/5 ML LIQUID PO ×2 (09:03→18:11)
[2021-08-11] MEDS: polyethylene glycoL 3350 17 GM POWD.PACK PO (09:03)
--- NOTE | 2021-08-11 11:35 | MHC.SL.SOA ---
Referring Provider: Attending: Dr. Morales Reason for Referral: Concerns surrounding cognition Date of Plan of Treatment:06/01/21 Onset of Symptoms/Illness:06/01/21 Date Treatment Started:06/01/21 Medical Diagnosis:Toxic encephalopathy Primary Speech Language Diagnosis:R41.841 Cognitive communication disorder Reason for Visit:81496 Individual Treatment Subjective:Patient was sitting up in bed, awake and alert. She appeared to be in positive spirits. Objective: Today [employer]GG[employer] LADLE TENDER screened patient's language skills. Patient denied having any concerns about her communication, but did mention that her memory comes and goes. She stated that sometimes she forgets some things she goes through. Assessment:Patient stated that she was at [facility]. She correctly stated the month and year. She stated the current season. Patient recalled that her last meal was breakfast. Patient said she lives in [place]. Upon review, chart states patient's address in [place]. When asked how old she was, patient stated 37. Patient stated she was unsure how long she has been in the hospital, what day of the week it was, and what the date was. Patient was able to immediately repeat 3 word lists. She was unable to recall any words in the lists after a short time delay (1 minute). Patient correctly identified items in the room when named by the clinician. Patient correctly repeated single words and whole sentences. Patient correctly answered WH-questions. She followed single-step and multi-step directions. No errors made with sentence completion tasks. Patient was able to spell words backwards. Patient was able to order items from a written menu without difficulty. Patient correctly read medication instructions. Continue to note concerns surrounding memory. Notes: Patient was administered the Cognitive Linguistic Quick Test (CLQT) at bedside. Based on her performance on this assessment measure, patient presents with a moderate cognitive linguistic impairment, characterized by significant impairments in short-term memory, executive functions, generative naming; mild impairments in attention and visuospatial skills. Recommend continue speech therapy at next level of care for concerns surrounding cognition. Seen by: Graduate/Clinical Fellow: No Supervisory Statement: f_Reg Query Last Value , MHC.AU.[facility] Speech Language Pathologist: Shazia Son M.A., [facility]
--- NOTE | 2021-08-11 12:59 | P.PNIM_ITS ---
Subjective Subjective Date of Service: 08/11/21 Interval History: awake alert answering questions appropriately, offers no acute complaints , tolerating diet, no nausea, no vomiting no diarrhea no other acute issues overnight. Review of Systems Review of Systems: Yes all other systems are reviewed and are negative Physical Exam Vital Signs: Vital Signs: Last Vital Signs Temp 98.3 F 08/11/21 08:00 Pulse 77 08/11/21 08:00 Resp 18 08/11/21 08:00 BP 111/74 08/11/21 08:00 Pulse Ox 93 08/11/21 08:00 BMI result Body Mass Index 28.3 Const: Other: General:? alert, awake in no acute distress neck no JVD Resp:? CTA bilateral CVS: S1,S2,RRR GI:? abdomen soft, nontender, bowel sounds audible Skin: No rash Neuro:? motor grossly intact Objective Data Active Medications Acetaminophen (Acetaminophen 325 Mg Tablet) 650 mg PO Q6H PRN PRN Reason: Pain, Mild (Pain Scale 1-3) Benzonatate (Benzonatate 100 Mg Capsule) 200 mg PO TID PRN PRN Reason: cough Last Admin: 07/13/21 16:52 Dose: 200 mg Documented by: ROXANA Docusate Sodium (Docusate Sodium 100 Mg Capsule) 100 mg PO DAILY [facility] Last Admin: 08/11/21 09:03 Dose: 100 mg Documented by: AZEEM Enoxaparin Sodium (Enoxaparin Sodium 40 Mg/0.4 Ml Syringe) 40 mg SUBCUT Q24H [facility] Last Admin: 08/11/21 05:32 Dose: 40 mg Documented by: JUAN Ferrous Sulfate (Ferrous Sulfate 300 Mg/5 Ml Liquid) 300 mg PO BIDWM [facility] Last Admin: 08/11/21 09:03 Dose: 300 mg Documented by: AZEEM Guaifenesin/Dextromethorphan (Guaifenesin Dm 200/20/10 Ml 10 Ml Syrup) 5 ml PO Q4H PRN PRN Reason: cough Multivitamins/Vitamin C (Multivitamin Tablet) 1 tab PO BEDTIME [facility] Last Admin: 08/10/21 20:39 Dose: 1 tab Documented by: JUAN Omeprazole (Omeprazole 20 Mg Jovani.) 20 mg PO DAILY@0630 [facility] Last Admin: 08/11/21 05:32 Dose: 20 mg Documented by: JUAN Ondansetron HCl (Ondansetron Hcl 4 Mg/2 Ml Vial) 4 mg IVPUSH Q8H PRN PRN Reason: Nausea and Vomiting Polyethylene Glycol (Polyethylene Glycol 3350 17 Gm Powd.Pack) 17 gm PO DAILY [facility] Last Admin: 08/11/21 09:03 Dose: 17 gm Documented by: AZEEM Sodium Chloride (0.9 % Sodium Chloride Flush 3 Ml Syringe) 3 ml IVFLUSH QSHIFT [facility] Last Admin: 08/11/21 09:02 Dose: Not Given Documented by: AZEEM Non-Admin Reason: No Access Thiamine HCl (Thiamine Hcl 100 Mg Tablet) 100 mg PO DAILY [facility] Last Admin: 08/11/21 09:03 Dose: 100 mg Documented by: AZEEM Labs CBC & Chem 7: 07/11/21 05:53 07/12/21 05:18 Assessment and Plan (1) Toxic encephalopathy: Status: Acute Plan 46-year-old female with of substance abuse presents to the hospital with confusion found to lack capacity to make medical decisions and awaiting placement Toxic metabolic encephalopathy- suspected secondary to polysubstance abuse urine toxicology positive for cocaine, fentanyl, and marijuana although the patient adamantly denies using any illicit substance, her parents confirmed that she was actively using substances seen by neurology, brain changes on imaging consistent with cocaine abuse being followed by OT /ST,, as per speech therapy note on August 08 patient is doing well with her ability to respond to confrontational naming, patient evaluated by OT today await for their findings Pych reassessed on 07/23 and at that time she did not have capacity to make decisions, healthcare proxy has been invoked, , will re-consult psych to reassess for competency after OT finalize their evaluation case discussed with social science professor and occupational therapy E Coli UTI completed course of Abx DVT prophylaxis Lovenox need for inpatient due to cognitive linguistic impairment , waiting safe di sposition given that she needs 24-hour observation. Family not able to care for her at home. Quality Stroke Does the patient have a stroke diagnosis?: No VTE Prior VTE?: No VTE Risk Level:: Medical - moderate - high VTE Device Contraindication: Treatment Not Indicated VTE Drug Contraindication: N/A - Med Ordered
--- NOTE | 2021-08-11 15:14 | MHC.CM.PN ---
nurse case maker note electronic medical record reviewed and case discussed with staff nurse , ot//speech and hospitlaist ., mild-moderate cognitive impairements still , she has shown some improvements. still seeking short term term rehab to possible turn to [facility] term , broad search underway still, clinical updates sent today . i tried calling patients father message left for him care manage to continue ot follow
[2021-08-11 15:55] VITALS: BP 105/66; PULSE 80; RESP 18; TEMP 36.8; O2SAT 93
[2021-08-11] MEDS: Multivitamin TABLET 1 TAB PO (20:33)
[2021-08-11 23:11] VITALS: BP 112/32; PULSE 84; RESP 17; TEMP 36.2; O2SAT 95
[2021-08-12] MEDS: Enoxaparin Sodium 40 MG/0.4 ML SYRINGE SUBCUT (06:37)
[2021-08-12] MEDS: Omeprazole 20 MG CAPSULE.DR PO (06:37)
[2021-08-12 08:00] VITALS: BP 112/78; PULSE 78; RESP 18; TEMP 36.4; O2SAT 92
[2021-08-12] MEDS: Thiamine HCL 100 MG TABLET PO (08:18)
[2021-08-12] MEDS: Ferrous Sulfate 300 MG/5 ML LIQUID PO ×2 (08:18→16:28)
[2021-08-12] MEDS: Docusate Sodium 100 MG CAPSULE PO (08:19)
[2021-08-12] MEDS: polyethylene glycoL 3350 17 GM POWD.PACK PO (08:19)
--- NOTE | 2021-08-12 10:15 | P.PNIM_ITS ---
Subjective Subjective Date of Service: 08/12/21 Interval History: the patient was seen and evaluated this morning Laying in bed, feels comfortable Denies any fever, chills or shortness of breath No reported other overnight events. Systemic review: No fever, chills or weakness No chest pain, palpitation No shortness of breath or coughing No abdominal pain, nausea or vomiting No urinary symptoms No any rash or wounds Physical Exam Vital Signs: Vital Signs: Last Vital Signs Temp 97.5 F 08/12/21 08:00 Pulse 78 08/12/21 08:00 Resp 18 08/12/21 08:00 BP 112/78 08/12/21 08:00 Pulse Ox 92 08/12/21 08:00 BMI result Body Mass Index 28.3 Const: Other: General:? alert, awake in no acute distress neck no JVD Resp:? Chest wall moving bilateral, no wheezing CVS: S1,S2,RRR GI:? abdomen soft, nontender, bowel sounds audible Skin: No rash Neuro:? motor grossly intact Objective Data Active Medications Acetaminophen (Acetaminophen 325 Mg Tablet) 650 mg PO Q6H PRN PRN Reason: Pain, Mild (Pain Scale 1-3) Benzonatate (Benzonatate 100 Mg Capsule) 200 mg PO TID PRN PRN Reason: cough Last Admin: 07/13/21 16:52 Dose: 200 mg Documented by: COTMARCIE Docusate Sodium (Docusate Sodium 100 Mg Capsule) 100 mg PO DAILY [facility] Last Admin: 08/12/21 08:19 Dose: 100 mg Documented by: BLADIMIR Enoxaparin Sodium (Enoxaparin Sodium 40 Mg/0.4 Ml Syringe) 40 mg SUBCUT Q24H [facility] Last Admin: 08/12/21 06:37 Dose: 40 mg Documented by: JUAN Ferrous Sulfate (Ferrous Sulfate 300 Mg/5 Ml Liquid) 300 mg PO BIDWM [facility] Last Admin: 08/12/21 08:18 Dose: 300 mg Documented by: BLADIMIR Guaifenesin/Dextromethorphan (Guaifenesin Dm 200/20/10 Ml 10 Ml Syrup) 5 ml PO Q4H PRN PRN Reason: cough Multivitamins/Vitamin C (Multivitamin Tablet) 1 tab PO BEDTIME [facility] Last Admin: 08/11/21 20:33 Dose: 1 tab Documented by: JUAN Omeprazole (Omeprazole 20 Mg Capsule.) 20 mg PO DAILY@0630 [facility] Last Admin: 08/12/21 06:37 Dose: 20 mg Documented by: JUAN Ondansetron HCl (Ondansetron Hcl 4 Mg/2 Ml Vial) 4 mg IVPUSH Q8H PRN PRN Reason: Nausea and Vomiting Polyethylene Glycol (Polyethylene Glycol 3350 17 Gm Powd.Pack) 17 gm PO DAILY [facility] Last Admin: 08/12/21 08:19 Dose: 17 gm Documented by: BLADIMIR Sodium Chloride (0.9 % Sodium Chloride Flush 3 Ml Syringe) 3 ml IVFLUSH QSHIFT [facility] Last Admin: 08/12/21 08:15 Dose: Not Given Documented by: BLADIMIR Non-Admin Reason: No Access Thiamine HCl (Thiamine Hcl 100 Mg Tablet) 100 mg PO DAILY [facility] Last Admin: 08/12/21 08:18 Dose: 100 mg Documented by: BLADIMIR Labs CBC & Chem 7: 07/11/21 05:53 07/12/21 05:18 Assessment and Plan (1) Toxic encephalopathy: Status: Acute Plan 46-year-old female with of substance abuse presents to the hospital with confusion found to lack capacity to make medical decisions and awaiting placement Toxic metabolic encephalopathy suspected secondary to polysubstance abuse urine toxicology positive for cocaine, fentanyl, and marijuana although the patient adamantly denies using any illicit substance, her parents confirmed that she was actively using substances seen by neurology air unit admission brain changes on imaging consistent with cocaine abuse per speech therapy note on August 08 patient is doing well with her ability to respond to confrontational naming Pending OT evaluation Pych reassessed on 07/23 and at that time she did not have capacity to make decisions, healthcare proxy has been invoked, , will re-consult psych to reassess for capacity case discussed with social service technician and occupational therapy E Coli UTI completed course of Abx DVT prophylaxis Lovenox need for inpatient due to cognitive linguistic impairment , waiting safe disposition given that she needs 24-hour observation. Family not able to care for her at home. Quality Stroke Does the patient have a stroke diagnosis?: No VTE Prior VTE?: No VTE Risk Level:: Medical - moderate - high VTE Device Contraindication: Treatment Not Indicated VTE Drug Contraindication: N/A - Med Ordered
--- NOTE | 2021-08-12 14:05 | PM.PSYCN ---
History of Present Illness Date of Service: 08/12/2021 Chief Complaint: UTI, encephalopathy Reason for Consult: Capacity for healthcare decision making capacity Requesting physician: Abdias Valdez Discussed with referring provider: Yes Sources of Information: patient interviewed and chart reviewed HPI Narrative: Patient is a 46-year-old female with PMH of polysubstance use, presented to hospital with episodes of confusion. I have met with her several times during this admission, and it was determined that she lack capacity at these times. Her healthcare proxy has been invoked, who is her father. I have been asked to meet with her again today to reassess. Patient was resting in bed, watching television. She was pleasant and cooperative upon approach. When asked why she was in the hospital, she stated ?I do not know?. When asked where she was, she was able to state [facility]. She was able to state month, year, and place. She was unable however to state day of week, date, city. She was able to complete the first visual spatial executive exercise on the [place], but was unable to draw a cube correctly. She was able to draw a clock, showing 10 past 11. She was able to name 3 animals correctly on the test. When asked to repeat words immediately after I said them, she was able to do so. When asked 1 minute later to repeat them again, she stated ?what words ?. She was unable to complete serial 7 subtraction starting at 100. She was unable to name more than 8 words in 1 minute that began with letter. She appears to continue with impairment in short-term memory and executive functioning. She was able to tell me that she has 6 children. The last time I met with her she told me she had 5 children. She was cooperative, but would trail off when asked specific questions that required detail. When asked her address, she stated ?0h boy...wow ?. She then stated that she did not know. When asked what her plans were upon discharge, she stated that she planned to return to her home and go back to work. She has been evicted from her apartment, and has lost her job. When asked if she has had visitors, she reported that her parents, aunts and uncles have visited her. When asked about her children, she stated no . As per lead case manager, her children have visited her while here. Past Psychiatric History: History of depression in the past, reports seeing a provider, does not remember if prescribed meds, or therapy. Father later reported several residential substance use programs. Medical Evaluation Reviewed: Yes Personal & Social History: HAS 6 CHILDREN. Review of Systems Review of Systems Patient denies any concerns. However unable to conduct full review of systems due to current cognition impairment. [facility] Medical History Polysubstance abuse Surgical History No pertinent past surgical history Social History: Parents . Father is healthcare proxy. She has 6 children. Currently unemployed. Substance History: Extensive substance use history. Has been in treatment several times. Trauma History: Unknown Diagnostics Vital Signs (24Hr): Vital Signs - 24 hr 08/11/21 15:55 08/11/21 23:11 08/12/21 08:00 Temperature 98.3 F 97.2 F 97.5 F Pulse Rate 80 84 78 Respiratory Rate 18 17 18 Blood Pressure 105/66 112/32 L 112/78 Pulse Oximetry 93 95 92 BMI result Body Mass Index 28.3 Labs Results: 07/11/21 05:53 07/12/21 05:18 Imaging Radiology Impressions: ITS Impressions Head CT 07/11/21 02:42 IMPRESSION: Symmetric regions of of hypoattenuation in the globus pallidus, which appears slightly more prominent than on 07/06/2021. This appearance can be seen with carbon monoxide poisoning and may be further evaluated with MRI. This was discussed with Dr. Jaeger on 07/11/2021 3:22 AM. Chest X-Ray 07/11/21 02:45 IMPRESSION: No acute cardiopulmonary findings. Abdomen X-Ray 07/11/21 20:25 IMPRESSION: 1. No radiopaque foreign body. The patient is cleared for MRI. 2. Left renal upper pole 19 mm calculus, as on CT of 03/26/2017. Brain MRI 07/11/21 21:35 IMPRESSION: Expansile T2 signal changes involving the globus pallidus bilaterally associated with intermediate reduced diffusivity. There is also restricted diffusion within the hippocampi bilaterally and involving portions of the right and left caudate nucleus as well as bandlike T2 signal changes involving the cerebellar white matter bilaterally. Findings could be toxic/metabolic in etiology and should be correlated for any recent drug exposures, particularly fentanyl/opioid exposure given bilateral hippocampal involvement. Carbon monoxide toxicity can present with a subset of these findings. Infectious etiologies should be considered in the appropriate clinical context. Short-term follow-up inclusive of post contrast imaging would be helpful in further assessment. Mental Status Exam Mental Status Exam Narrative: Well-developed, well-nourished, in NAD. Reclining in bed, with head of bed elevated. Dressed appropriately for age and season. No evidence of perceptual disturbances, no tics or tremors observed. Ambulation not observed. Patient Appearance: Appropriate Patient Orientation: Person and Place Level of Consciousness: Appropriate Patient Behavior: Cooperative and Good Eye Contact Mood Description: Appropriate Affect Description: Blunted Patient Cognition Impaired: Yes Ability to Follow Directions: Good Speech Pattern: Impoverished, Coherent, Soft-Spoken and Long Pauses Memory Description: Remote Impaired, Manager Mac Impaired, Recent Impaired and Working Impaired Hallucinations: None Delusions: Not Present Thought Process: Disoriented, Slowed Thinking and Confusion Thought Content: positive for [place], positive for Poverty of Content and positive for Slowed Thinking Judgement: Poor Medications Medications Current Medications Acetaminophen (Acetaminophen 325 Mg Tablet) 650 mg PO Q6H PRN PRN Reason: Pain, Mild (Pain Scale 1-3) Benzonatate (Benzonatate 100 Mg Capsule) 200 mg PO TID PRN PRN Reason: cough Last Admin: 07/13/21 16:52 Dose: 200 mg Documented by: Docusate Sodium (Docusate Sodium 100 Mg Capsule) 100 mg PO DAILY [facility] Last Admin: 08/12/21 08:19 Dose: 100 mg Documented by: Enoxaparin Sodium (Enoxaparin Sodium 40 Mg/0.4 Ml Syringe) 40 mg SUBCUT Q24H [facility] Last Admin: 08/12/21 06:37 Dose: 40 mg Documented by: Ferrous Sulfate (Ferrous Sulfate 300 Mg/5 Ml Liquid) 300 mg PO BIDWM [facility] Last Admin: 08/12/21 08:18 Dose: 300 mg Documented by: Guaifenesin/Dextromethorphan (Guaifenesin Dm 200/20/10 Ml 10 Ml Syrup) 5 ml PO Q4H PRN PRN Reason: cough Multivitamins/Vitamin C (Multivitamin Tablet) 1 tab PO BEDTIME [facility] Last Admin: 08/11/21 20:33 Dose: 1 tab Documented by: Omeprazole (Omeprazole 20 Mg Capsule.) 20 mg PO DAILY@0630 [facility] Last Admin: 08/12/21 06:37 Dose: 20 mg Documented by: Ondansetron HCl (Ondansetron Hcl 4 Mg/2 Ml Vial) 4 mg IVPUSH Q8H PRN PRN Reason: Nausea and Vomiting Polyethylene Glycol (Polyethylene Glycol 3350 17 Gm Powd.Pack) 17 gm PO DAILY [facility] Last Admin: 08/12/21 08:19 Dose: 17 gm Documented by: Sodium Chloride (0.9 % Sodium Chloride Flush 3 Ml Syringe) 3 ml IVFLUSH QSHIFT [facility] Last Admin: 08/12/21 08:15 Dose: Not Given Documented by: Thiamine HCl (Thiamine Hcl 100 Mg Tablet) 100 mg PO DAILY [facility] Last Admin: 08/12/21 08:18 Dose: 100 mg Documented by: Allergies Allergies Allergy/AdvReac Type Severity Reaction Status Date / Time codeine [CODEINE] Allergy Severe ANAPHLAXIS Verified 01/27/21 10:00 Penicillins Allergy Severe HIVES Verified 01/27/21 10:00 penicillin V Allergy Unknown hives Verified 01/27/21 10:00 Assessment & Plan Assessment & Plan (1) Encounter for assessment of healthcare decision-making capacity: Status: Acute Code(s): Z02.79 - Encounter for issue of other medical certificate Assessment and Plan: Patient continues with cognitive impairments, difficulty with short-term memory, executive functioning. She has shown improvement since she was last assessed by Psychiatry. She is able now to state that she has 6 children. During previous interviews she was unable to do this. 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 She is now able to state that she has at [facility], with correct month and year. However, she was unable to state her address, or report that her children had visited her (which they have, as per ). When asked to subtract 7 from 100 serial sevens, she stated 100- 7 is 103 . She is still unable to state why she is in the hospital, or what type of treatment she is receiving while here. She was unable to verbalize any type of understanding of her medical issues. She was unable to verbalize any understanding of current treatments. She was unable to report any foreseeable consequences of either excepting or refusing further treatment. Her responses do not appear to be affected by any type of depression or psychosis. She was unable to verbalize any type of decision making capacity. Plan Patient is currently unable to receive information regarding her current medical condition, treatment, or prognosis, unable to process information provided in any type of meaningful way, and is therefore unable to make any decisions related to her care. Although patient appears to be improving slowly, she does continue to lack capacity for healthcare decision-making at this time. This may improve over time, as she does appear slightly improved since last psychiatric assessment. I have shared this with provider Dr. Abdias Valdez. Thank you I spent minutes with the patient and/or on the patient floor today, greater than?50% of which was spent counseling/coordinating care.
[2021-08-12 15:14] VITALS: BP 113/69; PULSE 84; RESP 20; TEMP 37.1; O2SAT 93
--- NOTE | 2021-08-12 16:20 | MHC.CM.PN ---
NURSE MEDICAL AUTHORIZATION SPECIALIST NOTE REVIEWEED OT/SPEECH RE COGNITIVE EVAL AND PSYCHIATRY COGNITIVE RE EVAL. PATIENT REMAINS TO HAVE CAPACITY TO MAKE HER OWN MEDICAL DECISIONS, AND THUIS THE HEALTH CARE PROXY REMAINS ENVOKED , UPDATES SENT TO STR AND MEDICAL AUTHORIZATION SPECIALIST TO CONTINUE TO ABDI CHAVES ALSO NESTOR WITH MEDICAL AUTHORIZATION SPECIALIST DIRECTOR REGAEDING THIS CASE
[2021-08-12] MEDS: Multivitamin TABLET 1 TAB PO (19:20)
[2021-08-13] VITALS: BP 112/62; PULSE 84; RESP 18; TEMP 36.8; O2SAT 95
[2021-08-13] MEDS: Enoxaparin Sodium 40 MG/0.4 ML SYRINGE SUBCUT (05:35)
[2021-08-13] MEDS: Omeprazole 20 MG CAPSULE.DR PO (05:35)
[2021-08-13] MEDS: Ferrous Sulfate 300 MG/5 ML LIQUID PO ×2 (07:28→16:24)
[2021-08-13] MEDS: Docusate Sodium 100 MG CAPSULE PO (07:28)
[2021-08-13] MEDS: Thiamine HCL 100 MG TABLET PO (07:29)
[2021-08-13] MEDS: polyethylene glycoL 3350 17 GM POWD.PACK PO (07:29)
[2021-08-13 08:00] VITALS: BP 119/76; PULSE 74; RESP 17; TEMP 36.8; O2SAT 96
--- NOTE | 2021-08-13 09:37 | P.PNIM_ITS ---
Subjective Subjective Date of Service: 08/13/21 Interval History: Laying in bed, feels comfortable Denies any fever, chills or shortness of breath No reported other overnight events. Systemic review: No fever, chills or weakness No chest pain, palpitation No shortness of breath or coughing No abdominal pain, nausea or vomiting No urinary symptoms No any rash or wounds Physical Exam Vital Signs: Vital Signs: Last Vital Signs Temp 98.3 F 08/13/21 08:00 Pulse 74 08/13/21 08:00 Resp 17 08/13/21 08:00 BP 119/76 08/13/21 08:00 Pulse Ox 96 08/13/21 08:00 O2 Del Method 08/13/21 08:00 BMI result Body Mass Index 28.3 Const: Other: General:? alert, awake in no acute distress neck no JVD Resp:? Chest wall moving bilateral, no wheezing CVS: S1,S2,RRR GI:? abdomen soft, nontender, bowel sounds audible Skin: No rash Neuro:? motor grossly intact Objective Data Active Medications Acetaminophen (Acetaminophen 325 Mg Tablet) 650 mg PO Q6H PRN PRN Reason: Pain, Mild (Pain Scale 1-3) Benzonatate (Benzonatate 100 Mg Capsule) 200 mg PO TID PRN PRN Reason: cough Last Admin: 07/13/21 16:52 Dose: 200 mg Documented By: COTEMA Docusate Sodium (Docusate Sodium 100 Mg Capsule) 100 mg PO DAILY [facility] Last Admin: 08/13/21 07:28 Dose: 100 mg Documented By: BLADIMIR Enoxaparin Sodium (Enoxaparin Sodium 40 Mg/0.4 Ml Syringe) 40 mg SUBCUT Q24H [facility] Last Admin: 08/13/21 05:35 Dose: 40 mg Documented By: DONQC Comments: downtime Ferrous Sulfate (Ferrous Sulfate 300 Mg/5 Ml Liquid) 300 mg PO BIDWM [facility] Last Admin: 08/13/21 07:28 Dose: 300 mg Documented By: BLADIMIR Guaifenesin/Dextromethorphan (Guaifenesin Dm 200/20/10 Ml 10 Ml Syrup) 5 ml PO Q4H PRN PRN Reason: cough Multivitamins/Vitamin C (Multivitamin Tablet) 1 tab PO BEDTIME [facility] Last Admin: 08/12/21 19:20 Dose: 1 tab Documented By: NICOLAS Omeprazole (Omeprazole 20 Mg Jovani.) 20 mg PO DAILY@0630 [facility] Last Admin: 08/13/21 05:35 Dose: 20 mg Documented By: JAIR Comments: downtime Ondansetron HCl (Ondansetron Hcl 4 Mg/2 Ml Vial) 4 mg IVPUSH Q8H PRN PRN Reason: Nausea and Vomiting Polyethylene Glycol (Polyethylene Glycol 3350 17 Gm Powd.Pack) 17 gm PO DAILY [facility] Last Admin: 08/13/21 07:29 Dose: 17 gm Documented By: BLADIMIR Sodium Chloride (0.9 % Sodium Chloride Flush 3 Ml Syringe) 3 ml IVFLUSH QSHIFT [facility] Last Admin: 08/13/21 07:29 Dose: Not Given Documented By: BLADIMIR Non-Admin Reason: No Access Thiamine HCl (Thiamine Hcl 100 Mg Tablet) 100 mg PO DAILY [facility] Last Admin: 08/13/21 07:29 Dose: 100 mg Documented By: BLADIMIR Labs CBC & Chem 7: 07/11/21 05:53 07/12/21 05:18 Assessment and Plan (1) Toxic encephalopathy: Status: Acute Plan 46-year-old female with of substance abuse presents to the hospital with confusion found to lack capacity to make medical decisions and awaiting placement Toxic metabolic encephalopathy suspected secondary to polysubstance abuse urine toxicology positive for cocaine, fentanyl, and marijuana although the patient adamantly denies using any illicit substance, her parents confirmed that she was actively using substances seen by neurology air unit admission brain changes on imaging consistent with cocaine abuse per speech therapy note on August 08 patient is doing well with her ability to respond to confrontational naming Pending OT evaluation Pych reassessed on 08/12 and report that she did not have capacity to make decisions, healthcare proxy is invoked case discussed with hospital social worker and occupational therapy E Coli UTI completed course of Abx DVT prophylaxis Lovenox need for inpatient due to cognitive linguistic impairment , waiting safe disposition given that she needs 24-hour observation. Family not able to care for her at home. Quality Stroke Does the patient have a stroke diagnosis?: No VTE Prior VTE?: No VTE Risk Level:: Medical - moderate - high VTE Device Contraindication: Treatment Not Indicated VTE Drug Contraindication: N/A - Med Ordered
[2021-08-13 15:06] VITALS: BP 106/66; PULSE 73; RESP 20; TEMP 35.9; O2SAT 95
[2021-08-13] MEDS: Multivitamin TABLET 1 TAB PO (20:02)
[2021-08-13 23:18] VITALS: BP 109/64; PULSE 76; RESP 16; TEMP 36.1; O2SAT 94
[2021-08-14] MEDS: Omeprazole 20 MG CAPSULE.DR PO (05:44)
[2021-08-14] MEDS: Enoxaparin Sodium 40 MG/0.4 ML SYRINGE SUBCUT (05:44)
[2021-08-14 07:25] VITALS: BP 125/65; PULSE 74; RESP 18; TEMP 36.3; O2SAT 92
[2021-08-14] MEDS: Ferrous Sulfate 300 MG/5 ML LIQUID PO ×2 (07:44→16:03)
[2021-08-14] MEDS: Docusate Sodium 100 MG CAPSULE PO (07:44)
[2021-08-14] MEDS: Thiamine HCL 100 MG TABLET PO (07:44)
[2021-08-14] MEDS: polyethylene glycoL 3350 17 GM POWD.PACK PO (07:44)
[2021-08-14 08:00] VITALS: RESP 18
--- NOTE | 2021-08-14 12:24 | MHC.CM.PN ---
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 electronic medical record reviewed long with review of latest ot/speech and psych eval for competency patient does not have capacity to make anuy medical decisions.AND HAS MILD -MODERATE COGNITIVE IMPAIREMENTS , NO BEHAVIORS STR-BARRIERS ACTIVE DRUG SUBVSTANCE ABUSE HISTORY , HEALTH CARE PROXY ENVOKED, HAS [employer] INSURANCE AND [facility] , AGE 46 YRS RECEIVED DECLINES FROM THE FOLLOWING , [facility], [facility] AND [place] AND [facility] , [facility] , [facility], [facility] AT [facility], [facility], [facility], [facility] OF [facility] AND OF [facility], [facility], [facility], [facility],[place] ,[facility], [place], [facility], [facility], [facility], [place] [facility], [facility], [facility], [facility], [facility],[place] [facility], [facility], [facility], [facility] , [facility], CHANDRIKA LUJAN,, [facility] [place], [facility], [facility], [facility], [facility] [place] ,[facility], [facility] REHABBITHE [facility], [facility], [facility], [facility],[place] TOOBNAME A FEW BROAD MASS SEARCH . ALSO SEARCHED FOR ACUTE , LACTAC INITIALLY AND ASSISTED DISCHARGE PLAN STR -TO LTC ONCE BED SECURED PATIENT HAS [facility] INDEM[facility] INSURANCE AND [facility] HCP ENVOKED
[2021-08-14 15:05] VITALS: BP 115/75; PULSE 77; RESP 18; TEMP 36.5; O2SAT 93
--- NOTE | 2021-08-14 15:54 | P.PNIM_ITS ---
Subjective Subjective Date of Service: 08/14/21 Interval History: seen and examined this morning no overnight events no complaints this morning Review of Systems Review of Systems: Yes all other systems are reviewed and are negative Constitutional Constitutional: Denies chills and Denies fever(s) Cardiovascular Cardiovascular: Denies chest pain, Denies palpitations and Denies dyspnea Respiratory Respiratory: Denies cough and Denies dyspnea Gastrointestinal Gastrointestinal: Denies abdominal pain, Denies nausea and Denies vomiting Endocrine Endocrine: Denies palpitations Physical Exam Vital Signs: Vital Signs: Last Vital Signs Temp 97.7 F 08/14/21 15:05 Pulse 77 08/14/21 15:05 Resp 18 08/14/21 15:05 BP 115/75 08/14/21 15:05 Pulse Ox 93 08/14/21 15:05 O2 Del Method 08/14/21 15:05 BMI result Body Mass Index 28.3 Const: General: cooperative, comfortable, alert and awake Nutritional Appearance: average body habitus Resp: Effort & Inspection: normal respiratory effort and able to speak in complete sentences Auscultation: clear to auscultation bilaterally Cardio: Rate: regular rate Heart sounds: S1 normal heart sound present and S2 normal heart sound present GI: Palpation (GI): Soft to palpation and nontender Extrem: Other: able to move all 4 extremitites spontaneously General: Yes no pedal edema Objective Data Active Medications Acetaminophen (Acetaminophen 325 Mg Tablet) 650 mg PO Q6H PRN PRN Reason: Pain, Mild (Pain Scale 1-3) Benzonatate (Benzonatate 100 Mg Capsule) 200 mg PO TID PRN PRN Reason: cough Last Admin: 07/13/21 16:52 Dose: 200 mg Documented By: COTMARCIE Docusate Sodium (Docusate Sodium 100 Mg Capsule) 100 mg PO DAILY [facility] Last Admin: 08/14/21 07:44 Dose: 100 mg Documented By: BLADIMIR Enoxaparin Sodium (Enoxaparin Sodium 40 Mg/0.4 Ml Syringe) 40 mg SUBCUT Q24H [facility] Last Admin: 08/14/21 05:44 Dose: 40 mg Documented By: JAIR Ferrous Sulfate (Ferrous Sulfate 300 Mg/5 Ml Liquid) 300 mg PO BIDWM [facility] Last Admin: 08/14/21 07:44 Dose: 300 mg Documented By: BLADIMIR Guaifenesin/Dextromethorphan (Guaifenesin Dm 200/20/10 Ml 10 Ml Syrup) 5 ml PO Q4H PRN PRN Reason: cough Multivitamins/Vitamin C (Multivitamin Tablet) 1 tab PO BEDTIME [facility] Last Admin: 08/13/21 20:02 Dose: 1 tab Documented By: JAIR Omeprazole (Omeprazole 20 Mg Capsule.Dr) 20 mg PO DAILY@0630 [facility] Last Admin: 08/14/21 05:44 Dose: 20 mg Documented By: JAIR Ondansetron HCl (Ondansetron Hcl 4 Mg/2 Ml Vial) 4 mg IVPUSH Q8H PRN PRN Reason: Nausea and Vomiting Polyethylene Glycol (Polyethylene Glycol 3350 17 Gm Powd.Pack) 17 gm PO DAILY [facility] Last Admin: 08/14/21 07:44 Dose: 17 gm Documented By: BLADIMIR Sodium Chloride (0.9 % Sodium Chloride Flush 3 Ml Syringe) 3 ml IVFLUSH QSHIFT [facility] Last Admin: 08/14/21 15:23 Dose: Not Given Documented By: BLADIMIR Non-Admin Reason: No Access Thiamine HCl (Thiamine Hcl 100 Mg Tablet) 100 mg PO DAILY [facility] Last Admin: 08/14/21 07:44 Dose: 100 mg Documented By: BLADIMIR Labs CBC & Chem 7: 07/11/21 05:53 07/12/21 05:18 Assessment and Plan (1) Toxic encephalopathy: Status: Acute Plan 46-year-old female with of substance abuse presents to the hospital with confusion found to lack capacity to make medical decisions and awaiting placement Toxic metabolic encephalopathy suspected secondary to polysubstance abuse urine toxicology positive for cocaine, fentanyl, and marijuana although the patient adamantly denies using any illicit substance, her parents confirmed that she was actively using substances seen by neurology - brain changes on imaging consistent with cocaine abuse per speech therapy note on August 08 patient is doing well with her ability to respond to confrontational naming OT reports improvement and no longer rec 28/09 care Pych reassessed on 08/12 and report that she still did not have capacity to make decisions, healthcare proxy is invoked case discussed with psychosocial rehabilitation counselor and occupational therapy E Coli UTI completed course of Abx DVT prophylaxis Lovenox need for inpatient due to cognitive linguistic impairment , waiting safe disposition given that she needs 24-hour observation. Family not able to care for her at home. Quality Stroke Does the patient have a stroke diagnosis?: No VTE Prior VTE?: No VTE Risk Level:: Medical - moderate - high VTE Device Contraindication: Treatment Not Indicated VTE Drug Contraindication: N/A - Med Ordered
[2021-08-14] MEDS: Multivitamin TABLET 1 TAB PO (20:51)
[2021-08-14 23:17] VITALS: BP 111/73; PULSE 81; RESP 18; TEMP 36.8; O2SAT 94
[2021-08-15] MEDS: Enoxaparin Sodium 40 MG/0.4 ML SYRINGE SUBCUT (05:58)
[2021-08-15] MEDS: Omeprazole 20 MG CAPSULE.DR PO (05:58)
[2021-08-15 07:09] VITALS: BP 111/75; PULSE 80; RESP 18; TEMP 37.2; O2SAT 93
[2021-08-15] MEDS: Thiamine HCL 100 MG TABLET PO (08:43)
[2021-08-15] MEDS: Docusate Sodium 100 MG CAPSULE PO (08:43)
[2021-08-15] MEDS: Ferrous Sulfate 300 MG/5 ML LIQUID PO ×2 (08:43→16:18)
[2021-08-15] MEDS: polyethylene glycoL 3350 17 GM POWD.PACK PO (08:43)
--- NOTE | 2021-08-15 12:47 | HO.PM.IMPN ---
Subjective Subjective Date of Service: 08/15/21 Interval History: seen and examined this morning awaiting placement - no specific complaints no overnight events eating well, voiding without issue Review of Systems Review of Systems: Yes all other systems are reviewed and are negative Constitutional Constitutional: Denies chills, Denies fever(s) and Denies headache(s) ENT Ears, Nose, Mouth, and Throat: Denies headache(s) Cardiovascular Cardiovascular: Denies chest pain, Denies palpitations and Denies dyspnea Respiratory Respiratory: Denies cough and Denies dyspnea Gastrointestinal Gastrointestinal: Denies abdominal pain, Denies diarrhea, Denies nausea and Denies vomiting Neurologic Neurologic: Denies headache(s) Endocrine Endocrine: Denies palpitations Physical Exam Vital Signs: Vital Signs: Last Vital Signs Temp 99 F 08/15/21 07:09 Pulse 80 08/15/21 07:09 Resp 18 08/15/21 07:09 BP 111/75 08/15/21 07:09 Pulse Ox 93 08/15/21 07:09 O2 Del Method 08/15/21 07:09 BMI result Body Mass Index 28.3 Const: General: cooperative, comfortable, no acute distress, alert and awake Nutritional Appearance: average body habitus Resp: Effort & Inspection: normal respiratory effort and able to speak in complete sentences Auscultation: clear to auscultation bilaterally Cardio: Rate: regular rate Heart sounds: S1 normal heart sound present and S2 normal heart sound present GI: Inspection: No distended Palpation (GI): Soft to palpation and nontender Extrem: Other: able to move all 4 extremitites spontaneously General: Yes no pedal edema Objective Data Active Medications Acetaminophen (Acetaminophen 325 Mg Tablet) 650 mg PO Q6H PRN PRN Reason: Pain, Mild (Pain Scale 1-3) Benzonatate (Benzonatate 100 Mg Capsule) 200 mg PO TID PRN PRN Reason: cough Last Admin: 07/13/21 16:52 Dose: 200 mg Documented By: COTMARCIE Docusate Sodium (Docusate Sodium 100 Mg Capsule) 100 mg PO DAILY [facility] Last Admin: 08/15/21 08:43 Dose: 100 mg Documented By: RONALDO Enoxaparin Sodium (Enoxaparin Sodium 40 Mg/0.4 Ml Syringe) 40 mg SUBCUT Q24H [facility] Last Admin: 08/15/21 05:58 Dose: 40 mg Documented By: JAIR Ferrous Sulfate (Ferrous Sulfate 300 Mg/5 Ml Liquid) 300 mg PO BIDWM [facility] Last Admin: 08/15/21 08:43 Dose: 300 mg Documented By: RONALDO Guaifenesin/Dextromethorphan (Guaifenesin Dm 200/20/10 Ml 10 Ml Syrup) 5 ml PO Q4H PRN PRN Reason: cough Multivitamins/Vitamin C (Multivitamin Tablet) 1 tab PO BEDTIME [facility] Last Admin: 08/14/21 20:51 Dose: 1 tab Documented By: SHANTA Omeprazole (Omeprazole 20 Mg Capsule.) 20 mg PO DAILY@0630 [facility] Last Admin: 08/15/21 05:58 Dose: 20 mg Documented By: JAIR Ondansetron HCl (Ondansetron Hcl 4 Mg/2 Ml Vial) 4 mg IVPUSH Q8H PRN PRN Reason: Nausea and Vomiting Polyethylene Glycol (Polyethylene Glycol 3350 17 Gm Powd.Pack) 17 gm PO DAILY [facility] Last Admin: 08/15/21 08:43 Dose: 17 gm Documented By: RONALDO Sodium Chloride (0.9 % Sodium Chloride Flush 3 Ml Syringe) 3 ml IVFLUSH QSHIFT [facility] Last Admin: 08/15/21 08:40 Dose: Not Given Documented By: RONALDO Non-Admin Reason: No Access Thiamine HCl (Thiamine Hcl 100 Mg Tablet) 100 mg PO DAILY [facility] Last Admin: 08/15/21 08:43 Dose: 100 mg Documented By: RONALDO Labs CBC & Chem 7: 07/11/21 05:53 07/12/21 05:18 Assessment and Plan (1) Cognitive impairment: Status: Acute Plan 46-year-old female with of substance abuse presents to the hospital with confusion found to lack capacity to make medical decisions and awaiting placement Toxic metabolic encephalopathy suspected secondary to polysubstance abuse urine toxicology positive for cocaine, fentanyl, and marijuana although the patient adamantly denies using any illicit substance, her parents confirmed that she was actively using substances seen by neurology - brain changes on imaging consistent with cocaine abuse Per speech therapy note pt has ongoing moderate cognitive linguistic impairment, characterized by significant impairments in short-term memory, executive functions, generative naming; mild impairments in attention and visuospatial skills. Recommend continue speech therapy at next level of care for concerns surrounding cognition OT reports improvement Pych reassessed on 08/12 and reports that she patient still did not have capacity to make decisions, healthcare proxy is invoked case discussed with social security benefits interviewer E Coli UTI completed course of Abx DVT prophylaxis Lovenox need for inpatient due to cognitive linguistic impairment , waiting safe disposition. Family not able to care for her at home. Quality Stroke Does the patient have a stroke diagnosis?: No VTE Prior VTE?: No VTE Risk Level:: Medical - moderate - high VTE Device Contraindication: Treatment Not Indicated VTE Drug Contraindication: N/A - Med Ordered
--- NOTE | 2021-08-15 14:15 | MHC.CM.PN ---
NURSE CAD ENGINEER NTOE INIATED SEVERAL MORE FEFERRALS IN THE [facility] AND ALSO INSURANCE RECOMENDATION TO SEND TO [facility] FAX TO [facility] FAX # [phone] TO [facility]
--- NOTE | 2021-08-15 15:27 | MHC.CM.PN ---
nurse case reviewer note ltc facility declines [facility] [place] [facility] care exceed nursing capacity , [facility],[place] [facility], [facility] [place] no beds and sec to drug hx [facility], [facility]. [facility] m[facility], [facility] , [facility] nursing all no bed , jorden marek mabry. care one [facility], [facility] [place]. care one [facility], care one [facility], [place] can not accomadate, [facility] [place] [facility], [facility] are no bed availabilityn care [place] to continue to follow up on the other referrals that were sent
[2021-08-15 16:00] VITALS: BP 109/66; PULSE 71; RESP 18; TEMP 36.9; O2SAT 96
[2021-08-15] MEDS: Multivitamin TABLET 1 TAB PO (20:01)
[2021-08-15 23:49] VITALS: BP 104/67; PULSE 86; RESP 18; TEMP 36.8; O2SAT 95
[2021-08-16] MEDS: Omeprazole 20 MG CAPSULE.DR PO (05:16)
[2021-08-16] MEDS: Enoxaparin Sodium 40 MG/0.4 ML SYRINGE SUBCUT (05:16)
[2021-08-16 08:00] VITALS: BP 116/67; PULSE 74; RESP 17; TEMP 36; O2SAT 93
[2021-08-16] MEDS: polyethylene glycoL 3350 17 GM POWD.PACK PO (08:32)
[2021-08-16] MEDS: Ferrous Sulfate 300 MG/5 ML LIQUID PO ×2 (08:32→17:03)
[2021-08-16] MEDS: Thiamine HCL 100 MG TABLET PO (08:33)
[2021-08-16] MEDS: Docusate Sodium 100 MG CAPSULE PO (08:33)
--- NOTE | 2021-08-16 09:46 | HO.PM.IMPN ---
Subjective Subjective Date of Service: 08/16/21 <Janeth Edwards NP - Last Filed: 08/16/21 09:48> 08/25/21 <Jimbo Chino MD - Last Filed: 08/25/21 09:46> Review of Systems Follow up encephalopathy No overnight events no acute complaints <Janeth Edwards NP - Last Filed: 08/16/21 09:48> Physical Exam Vital Signs: Vital Signs: Last Vital Signs Temp 96.8 F 08/16/21 08:00 Pulse 74 08/16/21 08:00 Resp 17 08/16/21 08:00 BP 116/67 08/16/21 08:00 Pulse Ox 93 08/16/21 08:00 O2 Del Method 08/16/21 08:00 BMI result Body Mass Index 28.3 <Janeth Edwards NP - Last Filed: 08/16/21 09:48> Appearing in no acute distress lung sounds are clear to auscultation heart regular rate rhythm, clear S1, S2 positive bowel sounds, abdomen is soft, nontender neuro patient is alert x3, no focal deficits <Janeth Edwards NP - Last Filed: 08/16/21 09:48> Objective Data Active Medications Acetaminophen (Acetaminophen 325 Mg Tablet) 650 mg PO Q6H PRN PRN Reason: Pain, Mild (Pain Scale 1-3) Benzonatate (Benzonatate 100 Mg Capsule) 200 mg PO TID PRN PRN Reason: cough Last Admin: 07/13/21 16:52 Dose: 200 mg Documented By: ROXANA Docusate Sodium (Docusate Sodium 100 Mg Capsule) 100 mg PO DAILY [facility] Last Admin: 08/16/21 08:33 Dose: 100 mg Documented By: VIANNA Enoxaparin Sodium (Enoxaparin Sodium 40 Mg/0.4 Ml Syringe) 40 mg SUBCUT Q24H [facility] Last Admin: 08/16/21 05:16 Dose: 40 mg Documented By: IRIS Ferrous Sulfate (Ferrous Sulfate 300 Mg/5 Ml Liquid) 300 mg PO BIDWM [facility] Last Admin: 08/16/21 08:32 Dose: 300 mg Documented By: IVANNA Guaifenesin/Dextromethorphan (Guaifenesin Dm 200/20/10 Ml 10 Ml Syrup) 5 ml PO Q4H PRN PRN Reason: cough Multivitamins/Vitamin C (Multivitamin Tablet) 1 tab PO BEDTIME [facility] Last Admin: 08/15/21 20:01 Dose: 1 tab Documented By: IRIS Omeprazole (Omeprazole 20 Mg Capsule.) 20 mg PO DAILY@0630 [facility] Last Admin: 08/16/21 05:16 Dose: 20 mg Documented By: IRIS Ondansetron HCl (Ondansetron Hcl 4 Mg/2 Ml Vial) 4 mg IVPUSH Q8H PRN PRN Reason: Nausea and Vomiting Polyethylene Glycol (Polyethylene Glycol 3350 17 Gm Powd.Pack) 17 gm PO DAILY [facility] Last Admin: 08/16/21 08:32 Dose: 17 gm Documented By: IVANNA Sodium Chloride (0.9 % Sodium Chloride Flush 3 Ml Syringe) 3 ml IVFLUSH QSHIFT [facility] Last Admin: 08/16/21 08:33 Dose: Not Given Documented By: IVANNA Non-Admin Reason: No Access Thiamine HCl (Thiamine Hcl 100 Mg Tablet) 100 mg PO DAILY [facility] Last Admin: 08/16/21 08:33 Dose: 100 mg Documented By: IVANNA <Janeth Edwards, HAND NAILER - Last Filed: 08/16/21 09:48> Labs CBC & Chem 7: : 08/19/21 05:30 08/19/21 05:30 <Janeth Edwards HAND NAILER - Last Filed: 08/16/21 09:48> Assessment and Plan (1) Cognitive impairment: Status: Acute <Janeth Edwards HAND NAILER - Last Filed: 08/16/21 09:48> Assessment and Plan: 46-year-old female with of substance abuse presents to the hospital with confusion found to lack capacity to make medical decisions and awaiting placement Toxic metabolic encephalopathy, urine toxicology positive for cocaine, fentanyl, and marijuana although the patient adamantly denies using any illicit substance, her parents confirmed that she was actively using substances Per speech therapy note pt has ongoing moderate cognitive linguistic impairment, characterized by significant impairments in short-term memory, executive functions, generative naming; mild impairments in attention and visuospatial skills. Pych reassessed on 08/12 and reports that she patient still did not have capacity to make decisions, healthcare proxy is invoked case discussed with social media specialist E Coli UTI completed course of Abx DVT prophylaxis Lovenox Attending Dr. Mlapah need for inpatient due to cognitive linguistic impairment , waiting safe disposition. Family not able to care for her at home. <Janeth Edwards NP - Last Filed: 08/16/21 09:48> Quality Stroke Does the patient have a stroke diagnosis?: No <Janeth Edwards NP - Last Filed: 08/16/21 09:48> VTE Prior VTE?: No <Janeth Edwards NP - Last Filed: 08/16/21 09:48> VTE Risk Level:: Medical - moderate - high <Janeth Edwards NP - Last Filed: 08/16/21 09:48> VTE Device Contraindication: Treatment Not Indicated <Janeth Edwards NP - Last Filed: 08/16/21 09:48> VTE Drug Contraindication: N/A - Med Ordered <Janeth Edwards NP - Last Filed: 08/16/21 09:48>
[2021-08-16 15:25] VITALS: BP 117/66; PULSE 69; RESP 18; TEMP 36.6; O2SAT 94
[2021-08-16] MEDS: Multivitamin TABLET 1 TAB PO (19:42)
[2021-08-16 23:37] VITALS: BP 129/71; PULSE 83; RESP 18; TEMP 36.6; O2SAT 96
[2021-08-17] MEDS: Enoxaparin Sodium 40 MG/0.4 ML SYRINGE SUBCUT (05:40)
[2021-08-17] MEDS: Omeprazole 20 MG CAPSULE.DR PO (05:40)
[2021-08-17 07:30] VITALS: BP 120/77; PULSE 71; RESP 18; TEMP 36.6; O2SAT 95
[2021-08-17] MEDS: Thiamine HCL 100 MG TABLET PO (07:38)
[2021-08-17] MEDS: Ferrous Sulfate 300 MG/5 ML LIQUID PO ×2 (07:38→16:41)
[2021-08-17] MEDS: Docusate Sodium 100 MG CAPSULE PO (07:38)
[2021-08-17] MEDS: polyethylene glycoL 3350 17 GM POWD.PACK PO (07:39)
--- NOTE | 2021-08-17 10:16 | P.PNIM_ITS ---
Subjective Subjective Date of Service: 08/17/21 <Janeth Edwards NP - Last Filed: 08/17/21 10:17> 08/25/21 <Jimbo Chino MD - Last Filed: 08/25/21 09:46> Review of Systems Follow up encephalopathy No overnight events no acute complaints <Janeth Edwards NP - Last Filed: 08/17/21 10:17> Physical Exam Vital Signs: Vital Signs: Last Vital Signs Temp 97.9 F 08/17/21 07:30 Pulse 71 08/17/21 07:30 Resp 18 08/17/21 07:30 BP 120/77 08/17/21 07:30 Pulse Ox 95 08/17/21 07:30 O2 Del Method 08/17/21 07:30 BMI result Body Mass Index 28.3 <Janeth Edwards NP - Last Filed: 08/17/21 10:17> Appearing in no acute distress lung sounds are clear to auscultation heart regular rate rhythm, clear S1, S2 positive bowel sounds, abdomen is soft, nontender neuro patient is alert <Janeth Edwards NP - Last Filed: 08/17/21 10:17> Objective Data Active Medications Acetaminophen (Acetaminophen 325 Mg Tablet) 650 mg PO Q6H PRN PRN Reason: Pain, Mild (Pain Scale 1-3) Benzonatate (Benzonatate 100 Mg Capsule) 200 mg PO TID PRN PRN Reason: cough Last Admin: 07/13/21 16:52 Dose: 200 mg Documented By: COTMARCIE Docusate Sodium (Docusate Sodium 100 Mg Capsule) 100 mg PO DAILY [facility] Last Admin: 08/17/21 07:38 Dose: 100 mg Documented By: IVANNA Enoxaparin Sodium (Enoxaparin Sodium 40 Mg/0.4 Ml Syringe) 40 mg SUBCUT Q24H [facility] Last Admin: 08/17/21 05:40 Dose: 40 mg Documented By: IRIS Ferrous Sulfate (Ferrous Sulfate 300 Mg/5 Ml Liquid) 300 mg PO BIDWM [facility] Last Admin: 08/17/21 07:38 Dose: 300 mg Documented By: IVANNA Guaifenesin/Dextromethorphan (Guaifenesin Dm 200/20/10 Ml 10 Ml Syrup) 5 ml PO Q4H PRN PRN Reason: cough Multivitamins/Vitamin C (Multivitamin Tablet) 1 tab PO BEDTIME [facility] Last Admin: 08/16/21 19:42 Dose: 1 tab Documented By: IRIS Omeprazole (Omeprazole 20 Mg Capsule.) 20 mg PO DAILY@0630 [facility] Last Admin: 08/17/21 05:40 Dose: 20 mg Documented By: IRIS Ondansetron HCl (Ondansetron Hcl 4 Mg/2 Ml Vial) 4 mg IVPUSH Q8H PRN PRN Reason: Nausea and Vomiting Polyethylene Glycol (Polyethylene Glycol 3350 17 Gm Powd.Pack) 17 gm PO DAILY [facility] Last Admin: 08/17/21 07:39 Dose: 17 gm Documented By: IVANNA Sodium Chloride (0.9 % Sodium Chloride Flush 3 Ml Syringe) 3 ml IVFLUSH QSHIFT [facility] Last Admin: 08/17/21 06:52 Dose: Not Given Documented By: IVANNA Non-Admin Reason: No Access Thiamine HCl (Thiamine Hcl 100 Mg Tablet) 100 mg PO DAILY [facility] Last Admin: 08/17/21 07:38 Dose: 100 mg Documented By: IVANNA <Janeth Edwards NP - Last Filed: 08/17/21 10:17> Labs CBC & Chem 7: : 08/19/21 05:30 08/19/21 05:30 <Janeth Edwards NP - Last Filed: 08/17/21 10:17> Assessment and Plan (1) Cognitive impairment: Status: Acute <Janeth Edwards NP - Last Filed: 08/17/21 10:17> Assessment and Plan: 46-year-old female with of substance abuse presents to the hospital with confusion found to lack capacity to make medical decisions and awaiting placement No overnight events Toxic metabolic encephalopathy, urine toxicology positive for cocaine, fentanyl, and marijuana although the patient adamantly denies using any illicit substance, her parents confirmed that she was actively using substances Per speech therapy note pt has ongoing moderate cognitive linguistic impairment, characterized by significant impairments in short-term memory, executive functions, generative naming; mild impairments in attention and visuospatial skills. Pych reassessed on 08/12 and reports that she patient still did not have capacity to make decisions, healthcare proxy is invoked case discussed with social media designer E Coli UTI completed course of Abx DVT prophylaxis Lovenox Attending Dr. Chino need for inpatient due to cognitive linguistic impairment , waiting safe disposition. Family not able to care for her at home. <Janeth Edwards NP - Last Filed: 08/17/21 10:17> Quality Stroke Does the patient have a stroke diagnosis?: No <Janeth Edwards NP - Last Filed: 08/17/21 10:17> VTE Prior VTE?: No <Janeth Edwards NP - Last Filed: 08/17/21 10:17> VTE Risk Level:: Medical - moderate - high <Janeth Edwards NP - Last Filed: 08/17/21 10:17> VTE Device Contraindication: Treatment Not Indicated <Janeth Edwards NP - Last Filed: 08/17/21 10:17 > VTE Drug Contraindication: N/A - Med Ordered <Janeth Edwards NP - Last Filed: 08/17/21 10:17>
[2021-08-17 15:43] VITALS: BP 116/65; PULSE 77; RESP 18; TEMP 36.7; O2SAT 93
[2021-08-17] MEDS: Multivitamin TABLET 1 TAB PO (21:05)
[2021-08-17 23:28] VITALS: BP 103/60; PULSE 75; RESP 17; TEMP 36.6; O2SAT 94
[2021-08-18] MEDS: Enoxaparin Sodium 40 MG/0.4 ML SYRINGE SUBCUT (05:45)
[2021-08-18] MEDS: Omeprazole 20 MG CAPSULE.DR PO (05:45)
[2021-08-18 07:02] VITALS: BP 127/71; PULSE 77; RESP 18; TEMP 36.7; O2SAT 95
[2021-08-18] MEDS: polyethylene glycoL 3350 17 GM POWD.PACK PO (08:17)
[2021-08-18] MEDS: Ferrous Sulfate 300 MG/5 ML LIQUID PO ×2 (08:17→16:10)
[2021-08-18] MEDS: 0.9 % Sodium Chloride Flush 3 ML SYRINGE IVFLUSH ×2 (08:18→16:10)
[2021-08-18] MEDS: Thiamine HCL 100 MG TABLET PO (08:18)
[2021-08-18] MEDS: Docusate Sodium 100 MG CAPSULE PO (08:18)
--- NOTE | 2021-08-18 10:19 | P.PNIM_ITS ---
Subjective Subjective Date of Service: 08/18/21 Review of Systems Follow up encephalopathy No overnight events no acute complaints Physical Exam Vital Signs: Vital Signs: Last Vital Signs Temp 98.1 F 08/18/21 07:02 Pulse 77 08/18/21 07:02 Resp 18 08/18/21 07:02 BP 127/71 08/18/21 07:02 Pulse Ox 95 08/18/21 07:02 O2 Del Method 08/18/21 07:02 BMI result Body Mass Index 28.3 Appearing in no acute distress lung sounds are clear to auscultation heart regular rate rhythm, clear S1, S2 positive bowel sounds, abdomen is soft, nontender neuro patient is alert Objective Data Active Medications Acetaminophen (Acetaminophen 325 Mg Tablet) 650 mg PO Q6H PRN PRN Reason: Pain, Mild (Pain Scale 1-3) Benzonatate (Benzonatate 100 Mg Capsule) 200 mg PO TID PRN PRN Reason: cough Last Admin: 07/13/21 16:52 Dose: 200 mg Documented By: ROXANA Docusate Sodium (Docusate Sodium 100 Mg Capsule) 100 mg PO DAILY [facility] Last Admin: 08/18/21 08:18 Dose: 100 mg Documented By: ARTURO Enoxaparin Sodium (Enoxaparin Sodium 40 Mg/0.4 Ml Syringe) 40 mg SUBCUT Q24H [facility] Last Admin: 08/18/21 05:45 Dose: 40 mg Documented By: SARAHI Ferrous Sulfate (Ferrous Sulfate 300 Mg/5 Ml Liquid) 300 mg PO BIDWM [facility] Last Admin: 08/18/21 08:17 Dose: 300 mg Documented By: ARTURO Guaifenesin/Dextromethorphan (Guaifenesin Dm 200/20/10 Ml 10 Ml Syrup) 5 ml PO Q4H PRN PRN Reason: cough Multivitamins/Vitamin C (Multivitamin Tablet) 1 tab PO BEDTIME [facility] Last Admin: 08/17/21 21:05 Dose: 1 tab Documented By: BALJEET Omeprazole (Omeprazole 20 Mg Capsule.) 20 mg PO DAILY@0630 [facility] Last Admin: 08/18/21 05:45 Dose: 20 mg Documented By: SARAHI Ondansetron HCl (Ondansetron Hcl 4 Mg/2 Ml Vial) 4 mg IVPUSH Q8H PRN PRN Reason: Nausea and Vomiting Polyethylene Glycol (Polyethylene Glycol 3350 17 Gm Powd.Pack) 17 gm PO DAILY [facility] Last Admin: 08/18/21 08:17 Dose: 17 gm Documented By: ARTURO Sodium Chloride (0.9 % Sodium Chloride Flush 3 Ml Syringe) 3 ml IVFLUSH QSHIFT [facility] Last Admin: 08/18/21 08:18 Dose: 3 ml Documented By: ARTURO Thiamine HCl (Thiamine Hcl 100 Mg Tablet) 100 mg PO DAILY [facility] Last Admin: 08/18/21 08:18 Dose: 100 mg Documented By: ARTURO Labs CBC & Chem 7: 07/11/21 05:53 07/12/21 05:18 Assessment and Plan (1) Cognitive impairment: Status: Acute Plan 46-year-old female with of substance abuse presents to the hospital with confusion found to lack capacity to make medical decisions and awaiting placement No overnight events, no acute medical complaints check labs 08/18/21 Toxic metabolic encephalopathy, urine toxicology positive for cocaine, fentanyl, and marijuana although the patient adamantly denies using any illicit substance, her parents confirmed that she was actively using substances Per speech therapy note pt has ongoing moderate cognitive linguistic impairment, characterized by significant impairments in short-term memory, executive functions, generative naming; mild impairments in attention and visuospatial skills. Pych reassessed on 08/12 and reports that she patient still did not have capacity to make decisions, healthcare proxy is invoked case discussed with social media manager E Coli UTI completed course of Abx DVT prophylaxis Lovenox Attending Dr. Gomez need for inpatient due to cognitive linguistic impairment , waiting safe disposition. Family not able to care for her at home. Quality Stroke Does the patient have a stroke diagnosis?: No VTE Prior VTE?: No VTE Risk Level:: Medical - moderate - high VTE Device Contraindication: Treatment Not Indicated VTE Drug Contraindication: N/A - Med Ordered
[2021-08-18 15:36] VITALS: BP 111/71; PULSE 76; RESP 18; TEMP 36.1; O2SAT 96
[2021-08-18] MEDS: Multivitamin TABLET 1 TAB PO (20:18)
[2021-08-18 23:22] VITALS: BP 120/65; PULSE 74; RESP 18; TEMP 36.3; O2SAT 97
[2021-08-19] MEDS: Omeprazole 20 MG CAPSULE.DR PO (06:00)
[2021-08-19] MEDS: Enoxaparin Sodium 40 MG/0.4 ML SYRINGE SUBCUT (06:00)
[2021-08-19 06:28] LABS: Mean Corpuscular HGB Conc 30.8 g/dl (31.0-35.0); Mean Corpuscular Hemoglobin 25.3 pg (27.0-33.0); Mean Corpuscular Volume 82.1 fL (80.0-98.0); Mean Platelet Volume 10.2 fL (9.4-12.3); Platelet Count 279 X10*3/uL (160-400); Red Blood Count 4.75 X10*6/uL (4.20-5.50); Red Cell Distribution Width 17.3 % (11.0-16.0); White Blood Count 8.1 X10*3/uL (4.8-10.8)
[2021-08-19 06:47] LABS: Anion Gap 14 (12-20); Blood Urea Nitrogen 16 mg/dL (9-16); Carbon Dioxide 23 mmol/L (22-29); Chloride 105 mmol/L (96-108); Creatinine Clr Calc Pharmacy 92.2; Estimated Glomerular Filt Rate > 60; Glucose Random 92 mg/dL (60-115); Potassium 4.5 mmol/L (3.3-5.1); Sodium 137 mmol/L (135-145)
[2021-08-19 07:38] VITALS: BP 128/69; PULSE 77; RESP 16; TEMP 36.9; O2SAT 97
[2021-08-19] MEDS: polyethylene glycoL 3350 17 GM POWD.PACK PO (08:43)
[2021-08-19] MEDS: Thiamine HCL 100 MG TABLET PO (08:43)
[2021-08-19] MEDS: Ferrous Sulfate 300 MG/5 ML LIQUID PO ×2 (08:43→16:17)
[2021-08-19] MEDS: Docusate Sodium 100 MG CAPSULE PO (08:43)
--- NOTE | 2021-08-19 09:11 | P.PNIM_ITS ---
Subjective Subjective Date of Service: 08/19/21 Review of Systems Follow up encephalopathy No overnight events no acute complaints Physical Exam Vital Signs: Vital Signs: Last Vital Signs Temp 98.4 F 08/19/21 07:38 Pulse 77 08/19/21 07:38 Resp 16 08/19/21 07:38 BP 128/69 08/19/21 07:38 Pulse Ox 97 08/19/21 07:38 O2 Del Method 08/19/21 07:38 BMI result Body Mass Index 28.3 Appearing in no acute distress lung sounds are clear to auscultation heart regular rate rhythm, clear S1, S2 positive bowel sounds, abdomen is soft, nontender neuro patient is alert x3, no focal deficits Objective Data Active Medications Acetaminophen (Acetaminophen 325 Mg Tablet) 650 mg PO Q6H PRN PRN Reason: Pain, Mild (Pain Scale 1-3) Benzonatate (Benzonatate 100 Mg Capsule) 200 mg PO TID PRN PRN Reason: cough Last Admin: 07/13/21 16:52 Dose: 200 mg Documented By: ROXANA Docusate Sodium (Docusate Sodium 100 Mg Capsule) 100 mg PO DAILY [facility] Last Admin: 08/19/21 08:43 Dose: 100 mg Documented By: RONALDO Enoxaparin Sodium (Enoxaparin Sodium 40 Mg/0.4 Ml Syringe) 40 mg SUBCUT Q24H [facility] Last Admin: 08/19/21 06:00 Dose: 40 mg Documented By: MARIA Ferrous Sulfate (Ferrous Sulfate 300 Mg/5 Ml Liquid) 300 mg PO BIDWM [facility] Last Admin: 08/19/21 08:43 Dose: 300 mg Documented By: RONALDO Guaifenesin/Dextromethorphan (Guaifenesin Dm 200/20/10 Ml 10 Ml Syrup) 5 ml PO Q4H PRN PRN Reason: cough Multivitamins/Vitamin C (Multivitamin Tablet) 1 tab PO BEDTIME [facility] Last Admin: 08/18/21 20:18 Dose: 1 tab Documented By: MARIA Omeprazole (Omeprazole 20 Mg Capsule.) 20 mg PO DAILY@0630 [facility] Last Admin: 08/19/21 06:00 Dose: 20 mg Documented By: MARIA Ondansetron HCl (Ondansetron Hcl 4 Mg/2 Ml Vial) 4 mg IVPUSH Q8H PRN PRN Reason: Nausea and Vomiting Polyethylene Glycol (Polyethylene Glycol 3350 17 Gm Powd.Pack) 17 gm PO DAILY [facility] Last Admin: 08/19/21 08:43 Dose: 17 gm Documented By: RONALDO Sodium Chloride (0.9 % Sodium Chloride Flush 3 Ml Syringe) 3 ml IVFLUSH QSHIFT [facility] Last Admin: 08/19/21 08:43 Dose: Not Given Documented By: RONALDO Non-Admin Reason: No Access Thiamine HCl (Thiamine Hcl 100 Mg Tablet) 100 mg PO DAILY [facility] Last Admin: 08/19/21 08:43 Dose: 100 mg Documented By: RONALDO Labs CBC & Chem 7: 08/19/21 05:30 08/19/21 05:30 Labs: Laboratory Results - last 24 hr 08/19/21 08/19/21 05:30 05:30 MCV 82.1 MCH 25.3 L MCHC 30.8 L RDW 17.3 H Plt Count 279 MPV 10.2 Absolute Nucleated RBC 0.000 Nucleated RBC % (auto) 0.0 Anion Gap 14 Estim Creat Clear Calc 92.2 Estimated GFR > 60 Random Glucose 92 Calcium 9.0 Assessment and Plan (1) Cognitive impairment: Status: Acute Plan 46-year-old female with of substance abuse presents to the hospital with confusion found to lack capacity to make medical decisions and awaiting placement No overnight events, no acute medical complaints labs 08/18/21 WNL Toxic metabolic encephalopathy, urine toxicology positive for cocaine, fentanyl, and marijuana although the patient adamantly denies using any illicit substance, her parents confirmed that she was actively using substances Per speech therapy note pt has ongoing moderate cognitive linguistic impairment, characterized by significant impairments in short-term memory, executive functions, generative naming; mild impairments in attention and visuospatial s killsJoyce Dawn reassessed on 08/12 and reports that she patient still did not have capacity to make decisions, healthcare proxy is invoked case discussed with social service technician E Coli UTI completed course of Abx DVT prophylaxis Lovenox Attending Dr. Gomez need for inpatient due to cognitive linguistic impairment , waiting safe disposition. Family not able to care for her at home. Quality Stroke Does the patient have a stroke diagnosis?: No VTE Prior VTE?: No VTE Risk Level:: Medical - moderate - high VTE Device Contraindication: Treatment Not Indicated VTE Drug Contraindication: N/A - Med Ordered
[2021-08-19 16:00] VITALS: BP 124/59; PULSE 81; RESP 18; TEMP 36.8; O2SAT 96
--- NOTE | 2021-08-19 16:06 | MHC.CM.PN ---
NURSE AUTO BODY SHOP MANAGER NOTE CONTINUES TO TRY TO GET RAILWAY ENGINEER BED PLACEMENT , AND MANY MANY REFERRALS SENT OUT BARRIES ACTIVE DRUG HISTORY- AGE 46 YRS , MODERATE COGNITIVE IMPAIRMENT , LACKS CAPACITY FOR MAKING MEDICAL DECISIONS , ENVOKED HEALTH CARE PROXY AGENT HER FATHER . WOEKING WITH THE INSURANCE HEAVEN CASE MAMA CARENGER ARIANNA REQUESTED REFERRAL TO [facility] IN [facility] REFERRED WITH NO RESPONS , T/C TO THEM TODAY LEFT MESSAGE WITH ELÍAS CARTWRIGHT ON HER VOICE RECORDER , NO RESPONSE YET, ALSO ON NADYA FAXED TO CLEMENTINE RODRIGUEZ AT [facility] REQUEST FOR OLONG TERM CARE , NO RESPONSE , T/C TO ADMISSION AND LEFT MY CONTACK NAME AND NUMBER NO CALL BACK. FLANGING OPERATOR TO CONTINUE TO FOLLOW
[2021-08-19 19:02] VITALS: BP 103/75; PULSE 81; RESP 18; TEMP 36.8; O2SAT 93
[2021-08-19] MEDS: Multivitamin TABLET 1 TAB PO (19:15)
[2021-08-19 23:20] VITALS: BP 110/65; PULSE 73; RESP 17; TEMP 36.6; O2SAT 95
[2021-08-20] MEDS: Omeprazole 20 MG CAPSULE.DR PO (05:47)
[2021-08-20] MEDS: Enoxaparin Sodium 40 MG/0.4 ML SYRINGE SUBCUT (05:47)
[2021-08-20 07:37] VITALS: BP 128/81; PULSE 72; RESP 18; TEMP 36.9; O2SAT 96
[2021-08-20] MEDS: Ferrous Sulfate 300 MG/5 ML LIQUID PO ×2 (08:07→18:32)
[2021-08-20] MEDS: Docusate Sodium 100 MG CAPSULE PO (08:07)
[2021-08-20] MEDS: Thiamine HCL 100 MG TABLET PO (08:07)
[2021-08-20] MEDS: polyethylene glycoL 3350 17 GM POWD.PACK PO (08:07)
--- NOTE | 2021-08-20 12:23 | P.PNIM_ITS ---
Subjective Subjective Date of Service: 08/20/21 Interval History: seen and examined this morning,no overnight events,no complaints this morning Review of Systems Review of Systems: Yes all other systems are reviewed and are negative Physical Exam Vital Signs: Vital Signs: Last Vital Signs Temp 98.5 F 08/20/21 07:37 Pulse 72 08/20/21 07:37 Resp 18 08/20/21 07:37 BP 128/81 08/20/21 07:37 Pulse Ox 96 08/20/21 07:37 O2 Del Method 08/20/21 07:37 BMI result Body Mass Index 28.3 Const: Other: General:? alert, awake in no acute distress neck no JVD Resp:? CTA bilateral CVS: S1,S2,RRR GI:? abdomen soft, nontender, bowel sounds audible Skin: No rash Neuro:? motor grossly intact ? Objective Data Active Medications Acetaminophen (Acetaminophen 325 Mg Tablet) 650 mg PO Q6H PRN PRN Reason: Pain, Mild (Pain Scale 1-3) Benzonatate (Benzonatate 100 Mg Capsule) 200 mg PO TID PRN PRN Reason: cough Last Admin: 07/13/21 16:52 Dose: 200 mg Documented By: COTMARCIE Docusate Sodium (Docusate Sodium 100 Mg Capsule) 100 mg PO DAILY [facility] Last Admin: 08/20/21 08:07 Dose: 100 mg Documented By: IVANNA Enoxaparin Sodium (Enoxaparin Sodium 40 Mg/0.4 Ml Syringe) 40 mg SUBCUT Q24H [facility] Last Admin: 08/20/21 05:47 Dose: 40 mg Documented By: DOM Ferrous Sulfate (Ferrous Sulfate 300 Mg/5 Ml Liquid) 300 mg PO BIDWM [facility] Last Admin: 08/20/21 08:07 Dose: 300 mg Documented By: IVANNA Guaifenesin/Dextromethorphan (Guaifenesin Dm 200/20/10 Ml 10 Ml Syrup) 5 ml PO Q4H PRN PRN Reason: cough Multivitamins/Vitamin C (Multivitamin Tablet) 1 tab PO BEDTIME [facility] Last Admin: 08/19/21 19:15 Dose: 1 tab Documented By: DOM Omeprazole (Omeprazole 20 Mg Jovani.) 20 mg PO DAILY@0630 [facility] Last Admin: 08/20/21 05:47 Dose: 20 mg Documented By: DOM Ondansetron HCl (Ondansetron Hcl 4 Mg/2 Ml Vial) 4 mg IVPUSH Q8H PRN PRN Reason: Nausea and Vomiting Polyethylene Glycol (Polyethylene Glycol 3350 17 Gm Powd.Pack) 17 gm PO DAILY [facility] Last Admin: 08/20/21 08:07 Dose: 17 gm Documented By: IVANNA Sodium Chloride (0.9 % Sodium Chloride Flush 3 Ml Syringe) 3 ml IVFLUSH QSHIFT [facility] Last Admin: 08/20/21 08:07 Dose: Not Given Documented By: IVANNA Non-Admin Reason: No Access Thiamine HCl (Thiamine Hcl 100 Mg Tablet) 100 mg PO DAILY [facility] Last Admin: 08/20/21 08:07 Dose: 100 mg Documented By: IVANNA Labs CBC & Chem 7: 08/19/21 05:30 08/19/21 05:30 Assessment and Plan (1) Cognitive impairment: Status: Acute Plan 46-year-old female with of substance abuse presents to the hospital with confusion found to lack capacity to make medical decisions and awaiting placement No overnight events, no acute medical complaints labs 08/18/21 WNL Toxic metabolic encephalopathy, urine toxicology positive for cocaine, fentanyl, and marijuana although the patient adamantly denies using any illicit substance, her parents confirmed that she was actively using substances Per speech therapy note pt has ongoing moderate cognitive linguistic impairment, characterized by significant impairments in short-term memory, executive functions, generative naming; mild impairments in attention and visuospatial skills. Pych reassessed on 08/12 and reports that she patient still not have capacity to make decisions, healthcare proxy is invoked case discussed with medical social consultant E Coli UTI completed course of Abx DVT prophylaxis Lovenox need for inpatient due to cognitive linguistic impairment , waiting safe disposi tion. Family not able to care for her at home. Quality Stroke Does the patient have a stroke diagnosis?: No VTE Prior VTE?: No VTE Risk Level:: Medical - moderate - high VTE Device Contraindication: Treatment Not Indicated VTE Drug Contraindication: N/A - Med Ordered
--- NOTE | 2021-08-20 14:13 | MHC.CM.PN ---
Call from Bailee of [employer] (contact phone [phone] ext [phone]). She requested referrals to [facility] in [place]; referral sent through [facility]. She also requested referral to [facility]. Call to hospital and spoke with Florence Perry in Admissions, (contact phone [phone] ext [phone]). She had received previous fax but unable to read, refaxed referrala to [phone] for review for admission.
[2021-08-20 15:12] VITALS: BP 114/70; PULSE 73; RESP 18; TEMP 36.6; O2SAT 94
[2021-08-20 16:00] VITALS: BP 114/70; PULSE 73; RESP 18; TEMP 36.6; O2SAT 94
[2021-08-20] MEDS: Multivitamin TABLET 1 TAB PO (20:00)
[2021-08-20 23:16] VITALS: BP 115/65; PULSE 90; RESP 18; TEMP 36.6; O2SAT 93
[2021-08-21] MEDS: Omeprazole 20 MG CAPSULE.DR PO (05:41)
[2021-08-21] MEDS: Enoxaparin Sodium 40 MG/0.4 ML SYRINGE SUBCUT (05:41)
[2021-08-21 07:22] VITALS: BP 112/71; PULSE 71; RESP 18; TEMP 36.1
[2021-08-21] MEDS: polyethylene glycoL 3350 17 GM POWD.PACK PO (08:50)
[2021-08-21] MEDS: Docusate Sodium 100 MG CAPSULE PO (08:50)
[2021-08-21] MEDS: Ferrous Sulfate 300 MG/5 ML LIQUID PO ×2 (08:50→17:56)
[2021-08-21] MEDS: Thiamine HCL 100 MG TABLET PO (08:50)
--- NOTE | 2021-08-21 09:09 | MHC.CM.PN ---
NURSE TEMPLATE CHECKER NOTE SPOKE WITH PATIENTS FATHER /HCP ENIO MONTIEL ASKING FOR HIS CONSENT TO CALL/TEXT PHARMACIST ROHINI Mon, TO CHECK THE DATA BASE TO SEE IF ABDIRIZAK ALEJANDRO RECIVED ANY COIVD VACINANTIONS , HE REPORTED OF COUSE AND GAVE CONSENT FOR ME TO CONTACT PHARMACIST AND CHECK COVID DATA BASE .. REFERRAL TO [facility] TO CHECK DATQ BASE WAS MADE VIA [employer] TEXT
--- NOTE | 2021-08-21 10:59 | HO.PM.IMPN ---
Subjective Subjective Date of Service: 08/21/21 Interval History: sitting comfortably, offers no acute symptoms,no overnight events. Physical Exam Vital Signs: Vital Signs: Last Vital Signs Temp 97.0 F 08/21/21 07:22 Pulse 71 08/21/21 07:22 Resp 18 08/21/21 07:22 BP 112/71 08/21/21 07:22 Pulse Ox 93 08/20/21 23:16 O2 Del Method 08/21/21 07:22 BMI result Body Mass Index 28.3 Const: Other: General:? alert, awake in no acute distress neck no JVD Resp:? CTA bilateral CVS: S1,S2,RRR GI:? abdomen soft, nontender, bowel sounds audible Skin: No rash Neuro:? motor grossly intact Objective Data Active Medications Acetaminophen (Acetaminophen 325 Mg Tablet) 650 mg PO Q6H PRN PRN Reason: Pain, Mild (Pain Scale 1-3) Benzonatate (Benzonatate 100 Mg Capsule) 200 mg PO TID PRN PRN Reason: cough Last Admin: 07/13/21 16:52 Dose: 200 mg Documented By: ROXANA Docusate Sodium (Docusate Sodium 100 Mg Capsule) 100 mg PO DAILY [facility] Last Admin: 08/21/21 08:50 Dose: 100 mg Documented By: IVANNA Enoxaparin Sodium (Enoxaparin Sodium 40 Mg/0.4 Ml Syringe) 40 mg SUBCUT Q24H [facility] Last Admin: 08/21/21 05:41 Dose: 40 mg Documented By: RAOUL Ferrous Sulfate (Ferrous Sulfate 300 Mg/5 Ml Liquid) 300 mg PO BIDWM [facility] Last Admin: 08/21/21 08:50 Dose: 300 mg Documented By: IVANNA Guaifenesin/Dextromethorphan (Guaifenesin Dm 200/20/10 Ml 10 Ml Syrup) 5 ml PO Q4H PRN PRN Reason: cough Multivitamins/Vitamin C (Multivitamin Tablet) 1 tab PO BEDTIME [facility] Last Admin: 08/20/21 20:00 Dose: 1 tab Documented By: RAOUL Omeprazole (Omeprazole 20 Mg Capsule.) 20 mg PO DAILY@0630 [facility] Last Admin: 08/21/21 05:41 Dose: 20 mg Documented By: RAOUL Ondansetron HCl (Ondansetron Hcl 4 Mg/2 Ml Vial) 4 mg IVPUSH Q8H PRN PRN Reason: Nausea and Vomiting Polyethylene Glycol (Polyethylene Glycol 3350 17 Gm Powd.Pack) 17 gm PO DAILY [facility] Last Admin: 08/21/21 08:50 Dose: 17 gm Documented By: IVANNA Sodium Chloride (0.9 % Sodium Chloride Flush 3 Ml Syringe) 3 ml IVFLUSH QSHIFT [facility] Last Admin: 08/21/21 08:50 Dose: Not Given Documented By: IVANNA Non-Admin Reason: No Access Thiamine HCl (Thiamine Hcl 100 Mg Tablet) 100 mg PO DAILY [facility] Last Admin: 08/21/21 08:50 Dose: 100 mg Documented By: IVANNA Labs CBC & Chem 7: 08/19/21 05:30 08/19/21 05:30 Assessment and Plan (1) Cognitive impairment: Status: Acute Plan 46-year-old female with of substance abuse presents to the hospital with confusion found to lack capacity to make medical decisions and awaiting placement No overnight events, no acute medical complaints labs 08/18/21 WNL Toxic metabolic encephalopathy, urine toxicology positive for cocaine, fentanyl, and marijuana although the patient adamantly denies using any illicit substance, her parents confirmed that she was actively using substances Per speech therapy note pt has ongoing moderate cognitive linguistic impairment, characterized by significant impairments in short-term memory, executive functions, generative naming; mild impairments in attention and visuospatial skills. Pych reassessed on 08/12 and reports that she patient still not have capacity to make decisions, healthcare proxy is invoked case discussed with certified social workers in health care E Coli UTI completed course of Abx DVT prophylaxis Lovenox need for inpatient due to cognitive linguistic impairment , waiting safe disposition. Family not able to care for her at home. Quality Stroke Does the patient have a stroke diagnosis?: No VTE Prior VTE?: No VTE Risk Level:: Medical - moderate - high VTE Device Contraindication: Treatment Not Indicated VTE Drug Contraindication: N/A - Med Ordered
--- NOTE | 2021-08-21 14:41 | MHC.CM.PN ---
Addendum entered by Ya Peña 08/28/21 14:02: T/C [facility]CEIV[facility] FROM [facility] [phone] EXT [phone] REGRDING REFERRAL SOURCE AND QUESTION OF WE REACHD OUT TH=O [facility] COMPLEX AND DIFFCICULT CASES FINDNG UNTI , REVIEWED WHAT WAS DOEN REAGRDIS TO TRYING TO SECURE SKILLED NURISNG FACILITES AND OT/SPEECH RECOMENDATIONS . Original Note: nurse bob alexandre note electronic medicl record reviewed along with case disucssed with egg caser and the hospitaluist . met with patient today still requireing cues for adls a, showers and geting out of kimberly to chair m, encouraging to do activities for puzles , coloring bookn magazines. ppper rn field case manager director recived information from the [facility] specialist working on difficult casses to plac and suggested athenia fCILITIES FOR L;TOM TERM CARE PLACEMENT , SEVERAL REFERRALS SENT OUT AGAIN TODAY [facility] [phone] [phone] REGARDING ADULT FOSTER HOME , REQUESTE FROM PATIENTS PARENTS TO LOOK INTO THIS [facility] REPORTED THAT THEY DO TAKE REFERRALS FOR PATIENTS WHOM DO NOT ALREADY HAVE A FAMILY FRIENDS TO TAKE ON THE REP[OSNSIBILTY OF BEING A ADULT FOSTER PERSON . I SPOKE WITH PATIENTS FATHER /HCP JOHNATHAN MONTIEL WITH THIS INFORMATION AND HE HAVE ME CONSENT TO OVER THE PHONE BRITANY CARRENO OF PATIENT AND HER CURRENT NEEDS, I INFORMED THEM THAT THYE WILL GET BACK TO ME AFTER THEY SPOKE WITH THE TEAM AND WOULD THEN NEED TO COME TO THE [facility] AND MEET WITH HEAVEN AND MIGUEL ANGELALAUTE HER NEEDS AND APPROPRIATENESS FOR ADULT FOSTER HOME. AND WOULD ENCOURAGE EZIO TO ALSO BE NEAR BY TO SPEAK WITH THEM AND ANSWER ANY QUESTIONS THEY MAY HAVE . I INFORMED HIM I WOULD LET HIM KNOW IF I RECIVED ANY FURTHER INFORMATION . PAYROLL CONSULTANT TO CONTINUE TO ANASTACIO
[2021-08-21 15:48] VITALS: BP 109/68; PULSE 74; RESP 18; TEMP 37.1; O2SAT 95
[2021-08-21] MEDS: Multivitamin TABLET 1 TAB PO (20:46)
[2021-08-21 23:38] VITALS: BP 109/62; PULSE 81; RESP 18; TEMP 36.7; O2SAT 95
[2021-08-22] MEDS: Omeprazole 20 MG CAPSULE.DR PO (05:17)
[2021-08-22] MEDS: Enoxaparin Sodium 40 MG/0.4 ML SYRINGE SUBCUT (05:17)
[2021-08-22 08:00] VITALS: BP 120/74; PULSE 72; RESP 18; TEMP 36.7; O2SAT 96
[2021-08-22] MEDS: Thiamine HCL 100 MG TABLET PO (08:04)
[2021-08-22] MEDS: Ferrous Sulfate 300 MG/5 ML LIQUID PO ×2 (08:04→17:10)
[2021-08-22] MEDS: polyethylene glycoL 3350 17 GM POWD.PACK PO (08:04)
[2021-08-22] MEDS: Docusate Sodium 100 MG CAPSULE PO (08:04)
--- NOTE | 2021-08-22 08:10 | MHC.CM.PN ---
Addendum entered by Ya Peña 08/22/21 13:42: continued referrals denials,; [facility], [place] [facility], a;;[facility], [facility], [facility],no bed availability i called to the following for follow up # Milagro in [phone] left message with ludmila kim at 8;04 and 1;47 today to return my call please. #[facility] [phone] AND BRIDGETTEANA MARIA [phone] TO [facility] [place] AT 9AM AND AGAIN AT 1;50 MESSAGE LEFT REQUESTING CALL BACK # Vera piseco [phone] message left with alma rosa admission coordinator requesting to call back for follow up # [facility] REQUESTED CALL BACK FROM HIM # [facility] [phone] no admission person on today # referrals also [facility], [facility], [facility], [facility] await feed back Original Note: NURSE COMPOSING ROOM SUPERVISOR NOTE REFERRALS RESPONSE FORMLOMNG TERM CARE [facility]. [facility], [facility], [facility], [facility], [facility] , [facility], [facility], [facility], [facility], [facility], [facility], [facility], [facility], [facility], [facility], [facility] ([place],[facility],[place], [place], [facility],[place], [place], [place], [facility]A N[facility],[place] FOR EXTENDED CARE, TO NAME ONLY A FEW
--- NOTE | 2021-08-22 13:19 | P.PNIM_ITS ---
Subjective Subjective Date of Service: 08/22/21 Interval History: offers no acute complaints, tolerating diet ambulating in hallways. Review of Systems Review of Systems: Yes all other systems are reviewed and are negative Physical Exam Vital Signs: Vital Signs: Last Vital Signs Temp 98.1 F 08/22/21 08:00 Pulse 72 08/22/21 08:00 Resp 18 08/22/21 08:00 BP 120/74 08/22/21 08:00 Pulse Ox 96 08/22/21 08:00 O2 Del Method 08/22/21 08:00 BMI result Body Mass Index 28.3 Const: Other: General:? alert, awake in no acute distress neck no JVD Resp:? CTA bilateral CVS: S1,S2,RRR GI:? abdomen soft, nontender, bowel sounds audible Skin: No rash Neuro:? motor grossly intact Objective Data Active Medications Acetaminophen (Acetaminophen 325 Mg Tablet) 650 mg PO Q6H PRN PRN Reason: Pain, Mild (Pain Scale 1-3) Benzonatate (Benzonatate 100 Mg Capsule) 200 mg PO TID PRN PRN Reason: cough Last Admin: 07/13/21 16:52 Dose: 200 mg Documented By: COTMARCIE Docusate Sodium (Docusate Sodium 100 Mg Capsule) 100 mg PO DAILY [facility] Last Admin: 08/22/21 08:04 Dose: 100 mg Documented By: VIANNA Enoxaparin Sodium (Enoxaparin Sodium 40 Mg/0.4 Ml Syringe) 40 mg SUBCUT Q24H [facility] Last Admin: 08/22/21 05:17 Dose: 40 mg Documented By: JANENE Ferrous Sulfate (Ferrous Sulfate 300 Mg/5 Ml Liquid) 300 mg PO BIDWM [facility] Last Admin: 08/22/21 08:04 Dose: 300 mg Documented By: IVANNA Guaifenesin/Dextromethorphan (Guaifenesin Dm 200/20/10 Ml 10 Ml Syrup) 5 ml PO Q4H PRN PRN Reason: cough Multivitamins/Vitamin C (Multivitamin Tablet) 1 tab PO BEDTIME [facility] Last Admin: 08/21/21 20:46 Dose: 1 tab Documented By: JANENE Omeprazole (Omeprazole 20 Mg Capsule.) 20 mg PO DAILY@0630 [facility] Last Admin: 08/22/21 05:17 Dose: 20 mg Documented By: JANENE Ondansetron HCl (Ondansetron Hcl 4 Mg/2 Ml Vial) 4 mg IVPUSH Q8H PRN PRN Reason: Nausea and Vomiting Polyethylene Glycol (Polyethylene Glycol 3350 17 Gm Powd.Pack) 17 gm PO DAILY [facility] Last Admin: 08/22/21 08:04 Dose: 17 gm Documented By: IVANNA Sodium Chloride (0.9 % Sodium Chloride Flush 3 Ml Syringe) 3 ml IVFLUSH QSHIFT [facility] Last Admin: 08/22/21 06:59 Dose: Not Given Documented By: IVANNA Non-Admin Reason: No Access Thiamine HCl (Thiamine Hcl 100 Mg Tablet) 100 mg PO DAILY [facility] Last Admin: 08/22/21 08:04 Dose: 100 mg Documented By: IVANNA Labs CBC & Chem 7: 08/19/21 05:30 08/19/21 05:30 Assessment and Plan (1) Cognitive impairment: Status: Acute Plan 46-year-old female with of substance abuse presents to the hospital with confusion found to lack capacity to make medical decisions and awaiting placement No overnight events, no acute medical complaints labs 08/18/21 WNL Toxic metabolic encephalopathy, urine toxicology positive for cocaine, fentanyl, and marijuana although the patient adamantly denies using any illicit substance, her parents confirmed that she was actively using substances Per speech therapy note pt has ongoing moderate cognitive linguistic impairment, characterized by significant impairments in short-term memory, executive functions, generative naming; mild impairments in attention and visuospatial skills. Pych reassessed on 08/12 and reports that she patient still not have capacity to make decisions, healthcare proxy is invoked case discussed with social services manager E Coli UTI completed course of Abx DVT prophylaxis Lovenox need for inpatient due to cognitive linguistic impairment , waiting safe disposition. Family not able to care for her at home. Quality Stroke Does the patient have a stroke diagnosis?: No VTE Prior VTE?: No VTE Risk Level:: Medical - moderate - high VTE Device Contraindication: Treatment Not Indicated VTE Drug Contraindication: N/A - Med Ordered
[2021-08-22 15:34] VITALS: BP 121/75; PULSE 80; RESP 18; TEMP 36.3; O2SAT 95
[2021-08-22 16:00] VITALS: BP 121/75; PULSE 80; RESP 18; TEMP 36.3; O2SAT 95
[2021-08-22] MEDS: Multivitamin TABLET 1 TAB PO (19:44)
[2021-08-22 23:59] VITALS: BP 112/73; PULSE 87; RESP 16; TEMP 36.9; O2SAT 96
[2021-08-23] MEDS: Enoxaparin Sodium 40 MG/0.4 ML SYRINGE SUBCUT (06:12)
[2021-08-23] MEDS: Omeprazole 20 MG CAPSULE.DR PO (06:12)
[2021-08-23 07:47] VITALS: BP 115/76; PULSE 84; RESP 16; TEMP 36.9; O2SAT 96
[2021-08-23] MEDS: polyethylene glycoL 3350 17 GM POWD.PACK PO (08:31)
[2021-08-23] MEDS: Docusate Sodium 100 MG CAPSULE PO (08:31)
[2021-08-23] MEDS: Thiamine HCL 100 MG TABLET PO (08:31)
[2021-08-23] MEDS: Ferrous Sulfate 300 MG/5 ML LIQUID PO ×2 (08:31→16:20)
--- NOTE | 2021-08-23 09:49 | P.PNIM_ITS ---
Subjective Subjective Date of Service: 08/23/21 Interval History: sitting comfortably on bed, offers no acute complaints. Review of Systems Review of Systems: Yes all other systems are reviewed and are negative Physical Exam Vital Signs: Vital Signs: Last Vital Signs Temp 98.4 F 08/23/21 07:47 Pulse 84 08/23/21 07:47 Resp 16 08/23/21 07:47 BP 115/76 08/23/21 07:47 Pulse Ox 96 08/23/21 07:47 O2 Del Method 08/23/21 07:47 BMI result Body Mass Index 28.3 Const: Other: General:? alert, awake in no acute distress neck no JVD Resp:? CTA bilateral CVS: S1,S2,RRR GI:? abdomen soft, nontender, bowel sounds audible Skin: No rash Neuro:? motor grossly intact Psyche poor insight Objective Data Active Medications Acetaminophen (Acetaminophen 325 Mg Tablet) 650 mg PO Q6H PRN PRN Reason: Pain, Mild (Pain Scale 1-3) Benzonatate (Benzonatate 100 Mg Capsule) 200 mg PO TID PRN PRN Reason: cough Last Admin: 07/13/21 16:52 Dose: 200 mg Documented By: ROXANA Docusate Sodium (Docusate Sodium 100 Mg Capsule) 100 mg PO DAILY [facility] Last Admin: 08/23/21 08:31 Dose: 100 mg Documented By: AZEEM Enoxaparin Sodium (Enoxaparin Sodium 40 Mg/0.4 Ml Syringe) 40 mg SUBCUT Q24H [facility] Last Admin: 08/23/21 06:12 Dose: 40 mg Documented By: JANENE Ferrous Sulfate (Ferrous Sulfate 300 Mg/5 Ml Liquid) 300 mg PO BIDWM [facility] Last Admin: 08/23/21 08:31 Dose: 300 mg Documented By: AZEEM Guaifenesin/Dextromethorphan (Guaifenesin Dm 200/20/10 Ml 10 Ml Syrup) 5 ml PO Q4H PRN PRN Reason: cough Multivitamins/Vitamin C (Multivitamin Tablet) 1 tab PO BEDTIME [facility] Last Admin: 08/22/21 19:44 Dose: 1 tab Documented By: JANENE Omeprazole (Omeprazole 20 Mg Joavni.) 20 mg PO DAILY@0630 [facility] Last Admin: 08/23/21 06:12 Dose: 20 mg Documented By: JANENE Ondansetron HCl (Ondansetron Hcl 4 Mg/2 Ml Vial) 4 mg IVPUSH Q8H PRN PRN Reason: Nausea and Vomiting Polyethylene Glycol (Polyethylene Glycol 3350 17 Gm Powd.Pack) 17 gm PO DAILY [facility] Last Admin: 08/23/21 08:31 Dose: 17 gm Documented By: AZEEM Sodium Chloride (0.9 % Sodium Chloride Flush 3 Ml Syringe) 3 ml IVFLUSH QSHIFT [facility] Last Admin: 08/23/21 08:31 Dose: Not Given Documented By: AZEEM Non-Admin Reason: No Access Thiamine HCl (Thiamine Hcl 100 Mg Tablet) 100 mg PO DAILY [facility] Last Admin: 08/23/21 08:31 Dose: 100 mg Documented By: AZEEM Labs CBC & Chem 7: 08/19/21 05:30 08/19/21 05:30 Assessment and Plan (1) Cognitive impairment: Status: Acute Plan 46-year-old female with of substance abuse presents to the hospital with confusion found to lack capacity to make medical decisions and awaiting placement No overnight events, no acute medical complaints labs 08/19/21 WNL Toxic metabolic encephalopathy, urine toxicology positive for cocaine, fentanyl, and marijuana although the patient adamantly denies using any illicit substance, her parents confirmed that she was actively using substances Per speech therapy note pt has ongoing moderate cognitive linguistic impairment, characterized by significant impairments in short-term memory, executive functions, generative naming; mild impairments in attention and visuospatial skills. Pych reassessed on 08/12 and reports that she still not have capacity to make decisions, healthcare proxy is invoked. E Coli UTI completed course of Abx DVT prophylaxis Lovenox need for inpatient due to cognitive linguistic impairment , waiting safe disposition. Family not able to care for her at home. cm arranging for rehab bed. Quality Stroke Does the patient have a stroke diagnosis?: No VTE Prior VTE?: No VTE Risk Level:: Medical - moderate - high VTE Device Contraindication: Treatment Not Indicated VTE Drug Contraindication: N/A - Med Ordered
[2021-08-23 15:12] VITALS: BP 119/78; PULSE 78; RESP 18; TEMP 37.1; O2SAT 97
[2021-08-23] MEDS: Multivitamin TABLET 1 TAB PO (20:02)
[2021-08-23 23:06] VITALS: BP 112/70; PULSE 89; RESP 17; TEMP 36.3; O2SAT 95
[2021-08-24] MEDS: Omeprazole 20 MG CAPSULE.DR PO (05:32)
[2021-08-24] MEDS: Enoxaparin Sodium 40 MG/0.4 ML SYRINGE SUBCUT (05:32)
[2021-08-24] MEDS: Thiamine HCL 100 MG TABLET PO (07:23)
[2021-08-24] MEDS: polyethylene glycoL 3350 17 GM POWD.PACK PO (07:23)
[2021-08-24] MEDS: Docusate Sodium 100 MG CAPSULE PO (07:23)
[2021-08-24] MEDS: Ferrous Sulfate 300 MG/5 ML LIQUID PO ×2 (07:23→18:20)
[2021-08-24 08:00] VITALS: RESP 17
--- NOTE | 2021-08-24 09:57 | P.PNIM_ITS ---
Subjective Subjective Date of Service: 08/24/21 Interval History: seen and examined this morning no overnight events has no specific complaints this morning tolerating diet, voiding without difficulty Review of Systems Review of Systems: Yes all other systems are reviewed and are negative Constitutional Constitutional: Denies chills and Denies fever(s) Cardiovascular Cardiovascular: Denies chest pain, Denies palpitations and Denies dyspnea Respiratory Respiratory: Denies cough and Denies dyspnea Endocrine Endocrine: Denies palpitations Physical Exam Vital Signs: Vital Signs: Last Vital Signs Temp 97.3 F 08/23/21 23:06 Pulse 89 08/23/21 23:06 Resp 17 08/24/21 08:00 BP 112/70 08/23/21 23:06 Pulse Ox 95 08/23/21 23:06 O2 Del Method 08/23/21 23:06 BMI result Body Mass Index 28.3 Const: General: cooperative, comfortable, no acute distress, alert and awake Nutritional Appearance: average body habitus Resp: Effort & Inspection: normal respiratory effort and able to speak in complete sentences Cardio: Rate: regular rate Heart sounds: S1 normal heart sound present and S2 normal heart sound present GI: Inspection: No distended Palpation (GI): Soft to palpation Extrem: Other: Able to move all 4 extremities spontaneously Objective Data Active Medications Acetaminophen (Acetaminophen 325 Mg Tablet) 650 mg PO Q6H PRN PRN Reason: Pain, Mild (Pain Scale 1-3) Benzonatate (Benzonatate 100 Mg Capsule) 200 mg PO TID PRN PRN Reason: cough Last Admin: 07/13/21 16:52 Dose: 200 mg Documented By: ROXANA Docusate Sodium (Docusate Sodium 100 Mg Capsule) 100 mg PO DAILY [facility] Last Admin: 08/24/21 07:23 Dose: 100 mg Documented By: AZEEM Enoxaparin Sodium (Enoxaparin Sodium 40 Mg/0.4 Ml Syringe) 40 mg SUBCUT Q24H [facility] Last Admin: 08/24/21 05:32 Dose: 40 mg Documented By: JANENE Ferrous Sulfate (Ferrous Sulfate 300 Mg/5 Ml Liquid) 300 mg PO BIDWM [facility] Last Admin: 08/24/21 07:23 Dose: 300 mg Documented By: AZEEM Guaifenesin/Dextromethorphan (Guaifenesin Dm 200/20/10 Ml 10 Ml Syrup) 5 ml PO Q4H PRN PRN Reason: cough Multivitamins/Vitamin C (Multivitamin Tablet) 1 tab PO BEDTIME [facility] Last Admin: 08/23/21 20:02 Dose: 1 tab Documented By: JANENE Omeprazole (Omeprazole 20 Mg Capsule.) 20 mg PO DAILY@0630 [facility] Last Admin: 08/24/21 05:32 Dose: 20 mg Documented By: JANENE Ondansetron HCl (Ondansetron Hcl 4 Mg/2 Ml Vial) 4 mg IVPUSH Q8H PRN PRN Reason: Nausea and Vomiting Polyethylene Glycol (Polyethylene Glycol 3350 17 Gm Powd.Pack) 17 gm PO DAILY [facility] Last Admin: 08/24/21 07:23 Dose: 17 gm Documented By: AZEEM Thiamine HCl (Thiamine Hcl 100 Mg Tablet) 100 mg PO DAILY [facility] Last Admin: 08/24/21 07:23 Dose: 100 mg Documented By: AZEEM Labs CBC & Chem 7: 08/19/21 05:30 08/19/21 05:30 Assessment and Plan (1) Cognitive impairment: Status: Acute Plan 46-year-old female with of substance abuse presents to the hospital with confusion found to lack capacity to make medical decisions and awaiting placement No overnight events, no acute medical complaints labs 08/19/21 WNL Toxic metabolic encephalopathy, urine toxicology positive for cocaine, fentanyl, and marijuana although the patient adamantly denies using any illicit substance, her parents confirmed that she was actively using substances Per speech therapy note pt has ongoing moderate cognitive linguistic impairment, characterized by significant impairments in short-term memory, executive functions, generative naming; mild impairments in attention and visuospatial skills. Pych reassessed on 08/12 and reports that she still not have capacity to make decisions, healthcare proxy is invoked. E Coli UTI completed course of Abx DVT prophylaxis Lovenox need for inpatient due to cognitive linguistic impairment , waiting safe disposition. Family not able to care for her at home. cm arranging for rehab bed. Quality Stroke Does the patient have a stroke diagnosis?: No VTE Prior VTE?: No VTE Risk Level:: Medical - moderate - high VTE Device Contraindication: Treatment Not Indicated VTE Drug Contraindication: N/A - Med Ordered
[2021-08-24 15:34] VITALS: BP 100/72; PULSE 80; RESP 16; TEMP 36.7; O2SAT 95
[2021-08-24 19:47] VITALS: BP 114/65; PULSE 70; RESP 16; TEMP 36.2; O2SAT 94
[2021-08-24] MEDS: Multivitamin TABLET 1 TAB PO (20:12)
[2021-08-24 23:23] VITALS: BP 110/71; PULSE 89; RESP 16; TEMP 36.6; O2SAT 94
[2021-08-25] MEDS: Enoxaparin Sodium 40 MG/0.4 ML SYRINGE SUBCUT (05:58)
[2021-08-25] MEDS: Omeprazole 20 MG CAPSULE.DR PO (05:58)
[2021-08-25] MEDS: Ferrous Sulfate 300 MG/5 ML LIQUID PO ×2 (07:24→16:06)
[2021-08-25 07:25] VITALS: BP 129/78; PULSE 83; RESP 17; TEMP 36.2; O2SAT 95
--- NOTE | 2021-08-25 09:47 | P.PNIM_ITS ---
Subjective Subjective Date of Service: 08/25/21 Interval History: Follow-up on encephalopathy ?interval history:juan has memory issues but overall seems better than lat interaction with her and seem frustrated about been here Review of Systems memory issues, no agiation, no fever Physical Exam Vital Signs: Vital Signs: Last Vital Signs Temp 97.2 F 08/25/21 07:25 Pulse 83 08/25/21 07:25 Resp 17 08/25/21 07:25 BP 129/78 08/25/21 07:25 Pulse Ox 95 08/25/21 07:25 O2 Del Method 08/25/21 07:25 BMI result Body Mass Index 28.3 Const: Other: General: AO X 2 (Oriented to self and hospital), thought it was August 24, 2020 Resp: CTA bilateral CVS: S1,S2,RRR GI: +BS, NT, no distention Skin: No rash Neuro: motor grossly intact Psych: appropriate affect Objective Data Active Medications Acetaminophen (Acetaminophen 325 Mg Tablet) 650 mg PO Q6H PRN PRN Reason: Pain, Mild (Pain Scale 1-3) Benzonatate (Benzonatate 100 Mg Capsule) 200 mg PO TID PRN PRN Reason: cough Last Admin: 07/13/21 16:52 Dose: 200 mg Documented By: ROXANA Docusate Sodium (Docusate Sodium 100 Mg Capsule) 100 mg PO DAILY [facility] Last Admin: 08/24/21 07:23 Dose: 100 mg Documented By: AZEEM Enoxaparin Sodium (Enoxaparin Sodium 40 Mg/0.4 Ml Syringe) 40 mg SUBCUT Q24H [facility] Last Admin: 08/25/21 05:58 Dose: 40 mg Documented By: RONALDO Ferrous Sulfate (Ferrous Sulfate 300 Mg/5 Ml Liquid) 300 mg PO BIDWM [facility] Last Admin: 08/25/21 07:24 Dose: 300 mg Documented By: PABLO Guaifenesin/Dextromethorphan (Guaifenesin Dm 200/20/10 Ml 10 Ml Syrup) 5 ml PO Q4H PRN PRN Reason: cough Multivitamins/Vitamin C (Multivitamin Tablet) 1 tab PO BEDTIME [facility] Last Admin: 08/24/21 20:12 Dose: 1 tab Documented By: RONALDO Omeprazole (Omeprazole 20 Mg Capsule.) 20 mg PO DAILY@0630 [facility] Last Admin: 08/25/21 05:58 Dose: 20 mg Documented By: RONALDO Ondansetron HCl (Ondansetron Hcl 4 Mg/2 Ml Vial) 4 mg IVPUSH Q8H PRN PRN Reason: Nausea and Vomiting Polyethylene Glycol (Polyethylene Glycol 3350 17 Gm Powd.Pack) 17 gm PO DAILY [facility] Last Admin: 08/24/21 07:23 Dose: 17 gm Documented By: AZEEM Thiamine HCl (Thiamine Hcl 100 Mg Tablet) 100 mg PO DAILY [facility] Last Admin: 08/24/21 07:23 Dose: 100 mg Documented By: AZEEM Labs CBC & Chem 7: 08/19/21 05:30 08/19/21 05:30 Assessment and Plan (1) Cognitive impairment: Status: Acute Plan 46-year-old female with of substance abuse presents to the hospital with confusion found to lack capacity to make medical decisions and awaiting placement No overnight events, no acute medical complaints last labs 08/19/21 WNL Toxic metabolic encephalopathy, urine toxicology positive for cocaine, fentanyl, and marijuana although the patient adamantly denied using any illicit substance, her parents confirmed that she was actively using substances Per speech therapy note pt has ongoing moderate cognitive linguistic impairment, characterized by significant impairments in short-term memory, executive functions, generative naming; mild impairments in attention and visuospatial skills. Pych reassessed on 08/12 and reports that she still not have capacity to make decisions, healthcare proxy is invoked. E Coli UTI completed course of Abx DVT prophylaxis Lovenox need for inpatient due to cognitive linguistic impairment , waiting safe disposition. Family not able to care for her at home. cm arranging for rehab bed. Quality Stroke Does the patient have a stroke diagnosis?: No VTE Prior VTE?: No VTE Risk Level:: Medical - moderate - high VTE Device Contraindication: Treatment Not Indicated VTE Drug Contraindication: N/A - Med Ordered
[2021-08-25] MEDS: polyethylene glycoL 3350 17 GM POWD.PACK PO (10:32)
[2021-08-25] MEDS: Thiamine HCL 100 MG TABLET PO (10:32)
[2021-08-25] MEDS: Docusate Sodium 100 MG CAPSULE PO (10:32)
--- NOTE | 2021-08-25 14:02 | MHC.CM.NN ---
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 along with case discussed on multipkle disciplinaruy rounds et with patient today , spoke with patients father /hcp leida avila we checked with his rpermission about whether she hasd the covid vacinations there i s no record on the data base of having it , she could have had it somewhere and it was not reported , [facility], patients health care proxy is concerned about what if she had it and we gave her the covid vacinations again and he would like to discuss this further with her doctors and investigate thsi more , alf care referrals updated ; [facility], [facility] no bed av[facility] ([facility] , [place]),[facility]( [facility] ) [facility] ([facility],[place],[facility] the [facility] can not accomadate. [facility]. [place] [facility], [facility], [facility], [facility], no beds available , [facility],[place]. [facility], [facility] no bed availability, [facility], [facility], [facility], [facility], [facility], [facility], [facility], [place] ,[place][PE COD [place], [place], [place], NO BEDS[facility], [facility], [facility], [facility], [facility] ALL DENIED PH[facility] M[facility]AGES [facility] KIER[facility] TO PLEASE CLAL ME BACK REGARDING REFERRALS WILL CHECK IN WITH [facility] AND CHECK ELIGEABILITY
[2021-08-25 15:19] VITALS: BP 131/94; PULSE 99; RESP 18; TEMP 36.2; O2SAT 94
[2021-08-25] MEDS: Multivitamin TABLET 1 TAB PO (19:59)
[2021-08-25 23:43] VITALS: BP 113/63; PULSE 90; RESP 16; TEMP 36.1; O2SAT 96
[2021-08-26] MEDS: Omeprazole 20 MG CAPSULE.DR PO (06:01)
[2021-08-26] MEDS: Enoxaparin Sodium 40 MG/0.4 ML SYRINGE SUBCUT (06:01)
[2021-08-26] MEDS: Ferrous Sulfate 300 MG/5 ML LIQUID PO ×2 (07:20→16:41)
[2021-08-26] MEDS: Thiamine HCL 100 MG TABLET PO (07:20)
[2021-08-26 07:46] LABS: Glucose, Whole Blood 84 mg/dL (60-115)
[2021-08-26 08:00] VITALS: BP 129/83; PULSE 77; RESP 17; TEMP 36.3; O2SAT 98
--- NOTE | 2021-08-26 08:22 | HO.PM.IMPN ---
Subjective Subjective Date of Service: 08/26/21 Interval History: Follow-up on encephalopathy ?interval history:no new issues, unchanged from yesterday Review of Systems memory issues, no agitation, no fever Physical Exam Vital Signs: Vital Signs: Last Vital Signs Temp 97.0 F 08/25/21 23:43 Pulse 90 08/25/21 23:43 Resp 16 08/25/21 23:43 BP 113/63 08/25/21 23:43 Pulse Ox 96 08/25/21 23:43 O2 Del Method 08/25/21 23:43 BMI result Body Mass Index 28.3 Const: Other: General: AO X 2 (Oriented to self and hospital), thought it was August 24, 2020 Resp: CTA bilateral CVS: S1,S2,RRR GI: +BS, NT, no distention Skin: No rash Neuro: motor grossly intact Psych: appropriate affect Objective Data Active Medications Acetaminophen (Acetaminophen 325 Mg Tablet) 650 mg PO Q6H PRN PRN Reason: Pain, Mild (Pain Scale 1-3) Benzonatate (Benzonatate 100 Mg Capsule) 200 mg PO TID PRN PRN Reason: cough Last Admin: 07/13/21 16:52 Dose: 200 mg Documented By: COTMARCIE Docusate Sodium (Docusate Sodium 100 Mg Capsule) 100 mg PO DAILY [facility] Last Admin: 08/26/21 07:21 Dose: Not Given Documented By: EVERARDO Non-Admin Reason: Patient Refused Enoxaparin Sodium (Enoxaparin Sodium 40 Mg/0.4 Ml Syringe) 40 mg SUBCUT Q24H [facility] Last Admin: 08/26/21 06:01 Dose: 40 mg Documented By: RONALDO Ferrous Sulfate (Ferrous Sulfate 300 Mg/5 Ml Liquid) 300 mg PO BIDWM [facility] Last Admin: 08/26/21 07:20 Dose: 300 mg Documented By: EVERARDO Guaifenesin/Dextromethorphan (Guaifenesin Dm 200/20/10 Ml 10 Ml Syrup) 5 ml PO Q4H PRN PRN Reason: cough Multivitamins/Vitamin C (Multivitamin Tablet) 1 tab PO BEDTIME [facility] Last Admin: 08/25/21 19:59 Dose: 1 tab Documented By: RONALDO Omeprazole (Omeprazole 20 Mg Capsule.) 20 mg PO DAILY@0630 [facility] Last Admin: 08/26/21 06:01 Dose: 20 mg Documented By: RONALDO Ondansetron HCl (Ondansetron Hcl 4 Mg/2 Ml Vial) 4 mg IVPUSH Q8H PRN PRN Reason: Nausea and Vomiting Polyethylene Glycol (Polyethylene Glycol 3350 17 Gm Powd.Pack) 17 gm PO DAILY [facility] Last Admin: 08/26/21 07:21 Dose: Not Given Documented By: EVERARDO Non-Admin Reason: Patient Refused Thiamine HCl (Thiamine Hcl 100 Mg Tablet) 100 mg PO DAILY [facility] Last Admin: 08/26/21 07:20 Dose: 100 mg Documented By: EVERARDO Labs CBC & Chem 7: 08/19/21 05:30 08/19/21 05:30 Labs: Laboratory Results - last 24 hr 08/26/21 07:40 POC Glucose 84 Assessment and Plan (1) Cognitive impairment: Status: Acute Plan 46-year-old female with of substance abuse presents to the hospital with confusion found to lack capacity to make medical decisions and awaiting placement No overnight events, no acute medical complaints last labs 08/19/21 WNL Toxic metabolic encephalopathy, urine toxicology positive for cocaine, fentanyl, and marijuana although the patient adamantly denied using any illicit substance, her parents confirmed that she was actively using substances Per speech therapy note pt has ongoing moderate cognitive linguistic impairment, characterized by significant impairments in short-term memory, executive functions, generative naming; mild impairments in attention and visuospatial skills. Pych reassessed on 08/12 and reports that she still not have capacity to make decisions, healthcare proxy is invoked. E Coli UTI completed course of Abx DVT prophylaxis Lovenox need for inpatient due to cognitive linguistic impairment , waiting safe disposition. Family not able to care for her at home. cm arranging for rehab bed. Quality Stroke Does the patient have a stroke diagnosis?: No VTE Prior VTE?: No VTE Risk Level:: Medical - moderate - high VTE Device Contraindication: Treatment Not Indicated VTE Drug Contraindication: N/A - Med Ordered
--- NOTE | 2021-08-26 10:04 | MHC.CM.PN ---
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 case discussed marsha length of stay rounds , and recomendations to [facility] recomended that [place] [facility] may be easier to get into and now will referr to them for str coverage i=under her [facility]; [facility],[facility] sec to no bed availability
--- NOTE | 2021-08-26 10:19 | P.PNIM_ITS ---
Subjective Subjective Date of Service: 08/27/21 Interval History: Follow-up on encephalopathy ?interval history: doing well, no new issues Review of Systems memory issues, no agitation, no fever Physical Exam Vital Signs: Vital Signs: Last Vital Signs Temp 97.4 F 08/26/21 08:00 Pulse 77 08/26/21 08:00 Resp 17 08/26/21 08:00 BP 129/83 08/26/21 08:00 Pulse Ox 98 08/26/21 08:00 O2 Del Method 08/26/21 08:00 BMI result Body Mass Index 28.3 Const: Other: General: AO X 2 (Oriented to self and hospital), and year Resp: CTA bilateral CVS: S1,S2,RRR GI: +BS, NT, no distention Skin: No rash Neuro: motor grossly intact Psych: appropriate affect Objective Data Active Medications Acetaminophen (Acetaminophen 325 Mg Tablet) 650 mg PO Q6H PRN PRN Reason: Pain, Mild (Pain Scale 1-3) Benzonatate (Benzonatate 100 Mg Capsule) 200 mg PO TID PRN PRN Reason: cough Last Admin: 07/13/21 16:52 Dose: 200 mg Documented By: ROXANA Docusate Sodium (Docusate Sodium 100 Mg Capsule) 100 mg PO DAILY [facility] Last Admin: 08/26/21 07:21 Dose: Not Given Documented By: EVERARDO Non-Admin Reason: Patient Refused Enoxaparin Sodium (Enoxaparin Sodium 40 Mg/0.4 Ml Syringe) 40 mg SUBCUT Q24H [facility] Last Admin: 08/26/21 06:01 Dose: 40 mg Documented By: RONALDO Ferrous Sulfate (Ferrous Sulfate 300 Mg/5 Ml Liquid) 300 mg PO BIDWM [facility] Last Admin: 08/26/21 07:20 Dose: 300 mg Documented By: EVERARDO Guaifenesin/Dextromethorphan (Guaifenesin Dm 200/20/10 Ml 10 Ml Syrup) 5 ml PO Q4H PRN PRN Reason: cough Multivitamins/Vitamin C (Multivitamin Tablet) 1 tab PO BEDTIME [facility] Last Admin: 08/25/21 19:59 Dose: 1 tab Documented By: RONALDO Omeprazole (Omeprazole 20 Mg Jovani.) 20 mg PO DAILY@0630 [facility] Last Admin: 08/26/21 06:01 Dose: 20 mg Documented By: RONALDO Ondansetron HCl (Ondansetron Hcl 4 Mg/2 Ml Vial) 4 mg IVPUSH Q8H PRN PRN Reason: Nausea and Vomiting Polyethylene Glycol (Polyethylene Glycol 3350 17 Gm Powd.Pack) 17 gm PO DAILY [facility] Last Admin: 08/26/21 07:21 Dose: Not Given Documented By: EVERARDO Non-Admin Reason: Patient Refused Thiamine HCl (Thiamine Hcl 100 Mg Tablet) 100 mg PO DAILY [facility] Last Admin: 08/26/21 07:20 Dose: 100 mg Documented By: EVERARDO Labs CBC & Chem 7: 08/19/21 05:30 08/19/21 05:30 Labs: Laboratory Results - last 24 hr 08/26/21 07:40 POC Glucose 84 Assessment and Plan (1) Cognitive impairment: Status: Acute Plan 46-year-old female with of substance abuse presents to the hospital with confusion found to lack capacity to make medical decisions and awaiting placement No overnight events, no acute medical complaints last labs 08/19/21 WNL Toxic metabolic encephalopathy, urine toxicology positive for cocaine, fentanyl, and marijuana although the patient adamantly denied using any illicit substance, her parents confirmed that she was actively using substances Per speech therapy note pt has ongoing moderate cognitive linguistic impairment, characterized by significant impairments in short-term memory, executive functions, generative naming; mild impairments in attention and visuospatial skills. Pych reassessed on 08/12 and reports that she still not have capacity to make decisions, healthcare proxy is invoked. E Coli UTI completed course of Abx DVT prophylaxis Lovenox need for inpatient due to cognitive linguistic impairment , waiting safe disposition. Family not able to care for her at home. cm arranging for rehab bed. Quality Stroke Does the patient have a stroke diagnosis?: No VTE Prior VTE?: No VTE Risk Level:: Medical - moderate - high VTE Device Contraindication: Treatment Not Indicated VTE Drug Contraindication: N/A - Med Ordered
[2021-08-26 15:37] VITALS: BP 125/69; PULSE 96; RESP 18; TEMP 36.6; O2SAT 91
[2021-08-26 16:00] VITALS: BP 125/69; PULSE 96; RESP 18; TEMP 36.6; O2SAT 91
[2021-08-26] MEDS: Multivitamin TABLET 1 TAB PO (22:13)
[2021-08-26 23:36] VITALS: BP 113/63; PULSE 82; RESP 17; TEMP 36.7; O2SAT 95
[2021-08-27] VITALS: RESP 20
[2021-08-27] MEDS: Enoxaparin Sodium 40 MG/0.4 ML SYRINGE SUBCUT (06:10)
[2021-08-27] MEDS: Omeprazole 20 MG CAPSULE.DR PO (06:10)
[2021-08-27 07:38] VITALS: BP 119/68; PULSE 95; RESP 16; TEMP 36.5; O2SAT 96
[2021-08-27] MEDS: Ferrous Sulfate 300 MG/5 ML LIQUID PO ×2 (08:06→17:02)
[2021-08-27] MEDS: Docusate Sodium 100 MG CAPSULE PO (08:06)
[2021-08-27] MEDS: polyethylene glycoL 3350 17 GM POWD.PACK PO (08:06)
[2021-08-27] MEDS: Thiamine HCL 100 MG TABLET PO (08:06)
--- NOTE | 2021-08-27 11:24 | MHC.CM.PN ---
Call to [facility] and spoke with admission coordinator Florence @ [phone] ext [phone]. She reports not beds today, and requested updated clinical for continued review. She checked and states patient not showing as vaccinated in state database and would need to be fully vaccinated prior to admission. They could accept patient 2 weeks after one J&J vaccine or 2 weeks after second Moderna or Pfizer vaccine. Faxed updated clinical to Florence at [phone]. Call to HCP, Jerardo Gore @ [phone]. He remains agreeable to patient discharge to any facility wiling to accept patient. Discussed vaccination status, he is unsure is patient has been vaccinated against Covid. I informed him database does not show she has been. He is agreeable and gave verbal permission for patient to receive Covid vaccinations. Telephone permission witnessed by Kelsea Valdez LCSW.
--- NOTE | 2021-08-27 11:29 | MHC.CM.PN ---
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 He is agreeable to patient discharge to any facility wiling to accept patient. Vaccination status discussed, he is unsure if patient has been vaccinated against Covid. He was informed our database does not show she has been. HCP is agreeable and provided verbal consent for patient to receive Covid vaccinations.
[2021-08-27 15:12] VITALS: BP 112/75; PULSE 88; RESP 20; TEMP 36.3; O2SAT 94
--- NOTE | 2021-08-27 15:21 | MHC.CM.PN ---
REQUEST FOR INITIAL COVID-19 VACCINATION DOSE FAXED TO [phone] PHARMACY IS AVAILABLE [id number] FOR DOSE LIKELY TO COME TO FLOOR Wednesday08/29/21
[2021-08-27] MEDS: Multivitamin TABLET 1 TAB PO (21:15)
[2021-08-28] VITALS: BP 104/55; PULSE 88; RESP 18; TEMP 36.4; O2SAT 97
[2021-08-28] MEDS: Omeprazole 20 MG CAPSULE.DR PO (05:52)
[2021-08-28] MEDS: Enoxaparin Sodium 40 MG/0.4 ML SYRINGE SUBCUT (05:52)
[2021-08-28 07:59] VITALS: BP 121/75; PULSE 83; RESP 17; TEMP 36.7; O2SAT 95
[2021-08-28] MEDS: Ferrous Sulfate 300 MG/5 ML LIQUID PO ×2 (08:10→16:35)
[2021-08-28] MEDS: Thiamine HCL 100 MG TABLET PO (08:10)
[2021-08-28] MEDS: polyethylene glycoL 3350 17 GM POWD.PACK PO (08:10)
[2021-08-28] MEDS: Docusate Sodium 100 MG CAPSULE PO (08:10)
--- NOTE | 2021-08-28 10:56 | P.PNIM_ITS ---
Subjective Subjective Date of Service: 08/28/21 Interval History: Follow-up on encephalopathy ?interval history:no new complaint Review of Systems memory issues, no agitation, no fever Physical Exam Vital Signs: Vital Signs: Last Vital Signs Temp 98.0 F 08/28/21 07:59 Pulse 83 08/28/21 07:59 Resp 17 08/28/21 07:59 BP 121/75 08/28/21 07:59 Pulse Ox 95 08/28/21 07:59 O2 Del Method 08/28/21 07:59 BMI result Body Mass Index 28.3 Const: Other: General: AO X 2 (Oriented to self and hospital), and year Resp: CTA bilateral CVS: S1,S2,RRR GI: +BS, NT, no distention Skin: No rash Neuro: motor grossly intact Psych: appropriate affect Objective Data Active Medications Acetaminophen (Acetaminophen 325 Mg Tablet) 650 mg PO Q6H PRN PRN Reason: Pain, Mild (Pain Scale 1-3) Benzonatate (Benzonatate 100 Mg Capsule) 200 mg PO TID PRN PRN Reason: cough Last Admin: 07/13/21 16:52 Dose: 200 mg Documented By: COTMARCIE Docusate Sodium (Docusate Sodium 100 Mg Capsule) 100 mg PO DAILY [facility] Last Admin: 08/28/21 08:10 Dose: 100 mg Documented By: BLADIMIR Enoxaparin Sodium (Enoxaparin Sodium 40 Mg/0.4 Ml Syringe) 40 mg SUBCUT Q24H [facility] Last Admin: 08/28/21 05:52 Dose: 40 mg Documented By: JANENE Ferrous Sulfate (Ferrous Sulfate 300 Mg/5 Ml Liquid) 300 mg PO BIDWM [facility] Last Admin: 08/28/21 08:10 Dose: 300 mg Documented By: BLADIMIR Guaifenesin/Dextromethorphan (Guaifenesin Dm 200/20/10 Ml 10 Ml Syrup) 5 ml PO Q4H PRN PRN Reason: cough Multivitamins/Vitamin C (Multivitamin Tablet) 1 tab PO BEDTIME [facility] Last Admin: 08/27/21 21:15 Dose: 1 tab Documented By: JANENE Omeprazole (Omeprazole 20 Mg Capsule.) 20 mg PO DAILY@0630 [facility] Last Admin: 08/28/21 05:52 Dose: 20 mg Documented By: JANENE Ondansetron HCl (Ondansetron Hcl 4 Mg/2 Ml Vial) 4 mg IVPUSH Q8H PRN PRN Reason: Nausea and Vomiting Polyethylene Glycol (Polyethylene Glycol 3350 17 Gm Powd.Pack) 17 gm PO DAILY [facility] Last Admin: 08/28/21 08:10 Dose: 17 gm Documented By: BLADIMIR Thiamine HCl (Thiamine Hcl 100 Mg Tablet) 100 mg PO DAILY [facility] Last Admin: 08/28/21 08:10 Dose: 100 mg Documented By: BLADIMIR Labs CBC & Chem 7: 08/19/21 05:30 08/19/21 05:30 Assessment and Plan (1) Cognitive impairment: Status: Acute Plan 46-year-old female with of substance abuse presents to the hospital with confusion found to lack capacity to make medical decisions and awaiting placement No overnight events, no acute medical complaints last labs 08/19/21 WNL Toxic metabolic encephalopathy, urine toxicology positive for cocaine, fentanyl, and marijuana although the patient adamantly denied using any illicit substance, her parents confirmed that she was actively using substances Per speech therapy note pt has ongoing moderate cognitive linguistic impairment, characterized by significant impairments in short-term memory, executive functions, generative naming; mild impairments in attention and visuospatial skills. Pych reassessed on 08/12 and reports that she still not have capacity to make decisions, healthcare proxy is invoked. E Coli UTI completed course of Abx DVT prophylaxis Lovenox need for inpatient due to cognitive linguistic impairment , waiting safe disposition. Family not able to care for her at home. cm arranging for rehab bed. Quality Stroke Does the patient have a stroke diagnosis?: No VTE Prior VTE?: No VTE Risk Level:: Medical - moderate - high VTE Device Contraindication: Treatment Not Indicated VTE Drug Contraindication: N/A - Med Ordered
--- NOTE | 2021-08-28 12:24 | MHC.CM.PN ---
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 [facility], [facility], [facility] no bed availablity, [facility], [facility] inappropriate level of care, [facility] , [facility], [facility], and [facility], [place], [place],[facility] no bed, [facility], [facility], [facility]=on rehab [facility], [facility], [facility] , [facility] , mo[facility], [facility], [facility], [facility] [place],[facility], [facility], [facility], [facility], [facility] ).ayan , [facility] REHAB, RACHAEL ([facility], [facility]) [facility], [place] [facility], [facility], [facility] , [facility], [employer] [facility], [facility], [facility], [facility], [facility], [facility] ([facility], [facility], [facility]), [facility], [facility], [facility], [facility], [facility], [facility] [place] [facility] RE[facility]AB [facility] ,[facility] , MARLON MARIE, ZEUS, [facility] , [facility], [facility], [facility] [place], [facility], [facility]-([facility]) [facility] GUARDISCOT MONTERROSONICOLE [facility] MED[facility] CAROHUNTINGTON HOSPITALRIVERCRE NCONCR[facility] COVERNTRY [facility] ALL NO BED AVAILABILITY TO NAME A FEW RECIVED MESSAGE FROM KESHAWN AT [facility] 5 WEEK WAIT KLIST NEED TO COMPLETE TWO COVID VACINATION AND THEN OENDING BED AVAILABILITY THEY WILL CONTINUE TO FOLLWO TRACI WHYTE LEFT BY CASE MANAGEMENT AND BY THE [facility] NURSE CASE MANAGEMENT TRYING REFERRALS AT THE [facility]-
[2021-08-28 15:14] VITALS: BP 121/71; PULSE 81; RESP 18; TEMP 36.6; O2SAT 93
[2021-08-28] MEDS: Multivitamin TABLET 1 TAB PO (20:02)
[2021-08-28 23:37] VITALS: BP 105/53; PULSE 87; RESP 17; TEMP 36.3; O2SAT 97
[2021-08-29] MEDS: Omeprazole 20 MG CAPSULE.DR PO (05:37)
[2021-08-29] MEDS: Enoxaparin Sodium 40 MG/0.4 ML SYRINGE SUBCUT (05:37)
[2021-08-29 07:14] VITALS: BP 119/75; PULSE 88; RESP 15; TEMP 36.4; O2SAT 94
--- NOTE | 2021-08-29 07:57 | P.PNIM_ITS ---
Subjective Subjective Date of Service: 08/29/21 Interval History: Follow-up on encephalopathy ?interval history:no new complaint, doing well Review of Systems memory issues, no agitation, no fever Physical Exam Vital Signs: Vital Signs: Last Vital Signs Temp 97.5 F 08/29/21 07:14 Pulse 88 08/29/21 07:14 Resp 15 08/29/21 07:14 BP 119/75 08/29/21 07:14 Pulse Ox 94 08/29/21 07:14 O2 Del Method 08/29/21 07:14 BMI result Body Mass Index 28.3 Const: Other: General: AO X 2 (Oriented to self and hospital), and year Resp: CTA bilateral CVS: S1,S2,RRR GI: +BS, NT, no distention Skin: No rash Neuro: motor grossly intact Psych: appropriate affect Objective Data Active Medications Acetaminophen (Acetaminophen 325 Mg Tablet) 650 mg PO Q6H PRN PRN Reason: Pain, Mild (Pain Scale 1-3) Benzonatate (Benzonatate 100 Mg Capsule) 200 mg PO TID PRN PRN Reason: cough Last Admin: 07/13/21 16:52 Dose: 200 mg Documented By: COTMARCIE Docusate Sodium (Docusate Sodium 100 Mg Capsule) 100 mg PO DAILY [facility] Last Admin: 08/28/21 08:10 Dose: 100 mg Documented By: BLADIMIR Enoxaparin Sodium (Enoxaparin Sodium 40 Mg/0.4 Ml Syringe) 40 mg SUBCUT Q24H [facility] Last Admin: 08/29/21 05:37 Dose: 40 mg Documented By: JANENE Ferrous Sulfate (Ferrous Sulfate 300 Mg/5 Ml Liquid) 300 mg PO BIDWM [facility] Last Admin: 08/28/21 16:35 Dose: 300 mg Documented By: BLADIMIR Guaifenesin/Dextromethorphan (Guaifenesin Dm 200/20/10 Ml 10 Ml Syrup) 5 ml PO Q4H PRN PRN Reason: cough Multivitamins/Vitamin C (Multivitamin Tablet) 1 tab PO BEDTIME [facility] Last Admin: 08/28/21 20:02 Dose: 1 tab Documented By: JANENE Omeprazole (Omeprazole 20 Mg Capsule.) 20 mg PO DAILY@0630 [facility] Last Admin: 08/29/21 05:37 Dose: 20 mg Documented By: JANENE Ondansetron HCl (Ondansetron Hcl 4 Mg/2 Ml Vial) 4 mg IVPUSH Q8H PRN PRN Reason: Nausea and Vomiting Polyethylene Glycol (Polyethylene Glycol 3350 17 Gm Powd.Pack) 17 gm PO DAILY [facility] Last Admin: 08/28/21 08:10 Dose: 17 gm Documented By: BLADIMIR Thiamine HCl (Thiamine Hcl 100 Mg Tablet) 100 mg PO DAILY [facility] Last Admin: 08/28/21 08:10 Dose: 100 mg Documented By: BLADIMIR Labs CBC & Chem 7: 08/19/21 05:30 08/19/21 05:30 Assessment and Plan (1) Cognitive impairment: Status: Acute Plan 46-year-old female with of substance abuse presents to the hospital with confusion found to lack capacity to make medical decisions and awaiting placement essentially clincally change since last encounter, essentially awaiting safe dispo Toxic metabolic encephalopathy, urine toxicology positive for cocaine, fentanyl, and marijuana although the patient adamantly denied using any illicit substance, her parents confirmed that she was actively using substances Per speech therapy note pt has ongoing moderate cognitive linguistic impairment, characterized by significant impairments in short-term memory, executive functions, generative naming; mild impairments in attention and visuospatial skills. Pych reassessed on 08/12 and reports that she still not have capacity to make decisions, healthcare proxy is invoked. E Coli UTI completed course of Abx DVT prophylaxis Lovenox need for inpatient due to cognitive linguistic impairment , waiting safe disposition. Family not able to care for her at home. cm arranging for rehab bed. Quality Stroke Does the patient have a stroke diagnosis?: No VTE Prior VTE?: No VTE Risk Level:: Medical - moderate - high VTE Device Contraindication: Treatment Not Indicated VTE Drug Contraindication: N/A - Med Ordered
[2021-08-29] MEDS: Docusate Sodium 100 MG CAPSULE PO (08:45)
[2021-08-29] MEDS: Thiamine HCL 100 MG TABLET PO (08:45)
[2021-08-29] MEDS: polyethylene glycoL 3350 17 GM POWD.PACK PO (08:45)
[2021-08-29] MEDS: Ferrous Sulfate 300 MG/5 ML LIQUID PO ×2 (08:45→17:23)
--- NOTE | 2021-08-29 14:19 | MHC.CM.PN ---
recived first dose of the pfzier covid vacination today (consent had previuously been onbtained ) vacination card in chart and uploaded to allscript follow up on referrals sent yesterday , [facility], [facility] rehab [facility], [facility], [facility], [facility], [facility], [facility],, [facility]
[2021-08-29 15:55] VITALS: BP 111/64; PULSE 85; RESP 20; TEMP 36.5; O2SAT 94
[2021-08-29 16:00] VITALS: RESP 20
[2021-08-29] MEDS: Multivitamin TABLET 1 TAB PO (19:56)
[2021-08-29 23:59] VITALS: BP 124/78; PULSE 88; RESP 17; TEMP 36.4; O2SAT 95
[2021-08-30] MEDS: Omeprazole 20 MG CAPSULE.DR PO (06:08)
[2021-08-30] MEDS: Enoxaparin Sodium 40 MG/0.4 ML SYRINGE SUBCUT (06:09)
[2021-08-30] MEDS: Ferrous Sulfate 300 MG/5 ML LIQUID PO ×2 (07:51→17:16)
[2021-08-30] MEDS: Docusate Sodium 100 MG CAPSULE PO (07:51)
[2021-08-30] MEDS: Thiamine HCL 100 MG TABLET PO (07:52)
[2021-08-30] MEDS: polyethylene glycoL 3350 17 GM POWD.PACK PO (07:52)
[2021-08-30 08:00] VITALS: BP 111/79; PULSE 88; RESP 16; TEMP 37; O2SAT 95
--- NOTE | 2021-08-30 08:19 | HO.PM.IMPN ---
Subjective Subjective Date of Service: 08/30/21 Interval History: Follow-up on encephalopathy ?interval history:no new complaint, doing well she fully alert, oriented and aware of he situation Review of Systems memory issues, no agitation, no fever Physical Exam Vital Signs: Vital Signs: Last Vital Signs Temp 97.6 F 08/29/21 23:59 Pulse 88 08/29/21 23:59 Resp 17 08/29/21 23:59 BP 124/78 08/29/21 23:59 Pulse Ox 95 08/29/21 23:59 O2 Del Method 08/29/21 23:59 BMI result Body Mass Index 28.3 Const: Other: General: AO X 2 (Oriented to self and hospital), and year Resp: CTA bilateral CVS: S1,S2,RRR GI: +BS, NT, no distention Skin: No rash Neuro: motor grossly intact Psych: appropriate affect Objective Data Active Medications Acetaminophen (Acetaminophen 325 Mg Tablet) 650 mg PO Q6H PRN PRN Reason: Pain, Mild (Pain Scale 1-3) Benzonatate (Benzonatate 100 Mg Capsule) 200 mg PO TID PRN PRN Reason: cough Last Admin: 07/13/21 16:52 Dose: 200 mg Documented By: ROXANA Docusate Sodium (Docusate Sodium 100 Mg Capsule) 100 mg PO DAILY [facility] Last Admin: 08/30/21 07:51 Dose: 100 mg Documented By: IVANNA Enoxaparin Sodium (Enoxaparin Sodium 40 Mg/0.4 Ml Syringe) 40 mg SUBCUT Q24H [facility] Last Admin: 08/30/21 06:09 Dose: 40 mg Documented By: IRIS Ferrous Sulfate (Ferrous Sulfate 300 Mg/5 Ml Liquid) 300 mg PO BIDWM [facility] Last Admin: 08/30/21 07:51 Dose: 300 mg Documented By: IVANNA Guaifenesin/Dextromethorphan (Guaifenesin Dm 200/20/10 Ml 10 Ml Syrup) 5 ml PO Q4H PRN PRN Reason: cough Multivitamins/Vitamin C (Multivitamin Tablet) 1 tab PO BEDTIME [facility] Last Admin: 08/29/21 19:56 Dose: 1 tab Documented By: IRIS Omeprazole (Omeprazole 20 Mg Capsule.) 20 mg PO DAILY@0630 [facility] Last Admin: 08/30/21 06:08 Dose: 20 mg Documented By: IRIS Ondansetron HCl (Ondansetron Hcl 4 Mg/2 Ml Vial) 4 mg IVPUSH Q8H PRN PRN Reason: Nausea and Vomiting Polyethylene Glycol (Polyethylene Glycol 3350 17 Gm Powd.Pack) 17 gm PO DAILY [facility] Last Admin: 08/30/21 07:52 Dose: 17 gm Documented By: IVANNA Thiamine HCl (Thiamine Hcl 100 Mg Tablet) 100 mg PO DAILY [facility] Last Admin: 08/30/21 07:52 Dose: 100 mg Documented By: IVANNA Labs CBC & Chem 7: 08/19/21 05:30 08/19/21 05:30 Assessment and Plan (1) Cognitive impairment: Status: Acute Plan 46-year-old female with of substance abuse presents to the hospital with confusion found to lack capacity to make medical decisions and awaiting placement essentially clincally change since last encounter, essentially awaiting safe dispo Toxic metabolic encephalopathy, urine toxicology positive for cocaine, fentanyl, and marijuana although the patient adamantly denied using any illicit substance, her parents confirmed that she was actively using substances Per speech therapy note pt has ongoing moderate cognitive linguistic impairment, characterized by significant impairments in short-term memory, executive functions, generative naming; mild impairments in attention and visuospatial skills. Pych reassessed on 08/12 and reports that she still not have capacity to make decisions, healthcare proxy is invoked. I think she needs continous assessment by psych to determine disposition, she's seem to be doing much better today,... She's fully oriented, and judgment seems way better than earlier E Coli UTI completed course of Abx DVT prophylaxis Lovenox need for inpatient due to cognitive linguistic impairment , waiting safe disposition. Family not able to care for her at home. cm arranging for rehab bed. Quality Stroke Does the patient have a stroke diagnosis?: No VTE Prior VTE?: No VTE Risk Level:: Medical - moderate - high VTE Device Contraindication: Treatment Not Indicated VTE Drug Contraindication: N/A - Med Ordered
[2021-08-30 16:00] VITALS: BP 119/76; PULSE 84; RESP 16; TEMP 36.1; O2SAT 95
[2021-08-30] MEDS: Multivitamin TABLET 1 TAB PO (19:59)
[2021-08-31] VITALS: BP 109/69; PULSE 98; RESP 17; TEMP 36.6; O2SAT 95
[2021-08-31] MEDS: Omeprazole 20 MG CAPSULE.DR PO (05:38)
[2021-08-31] MEDS: Enoxaparin Sodium 40 MG/0.4 ML SYRINGE SUBCUT (05:38)
[2021-08-31 08:00] VITALS: BP 146/70; PULSE 73; RESP 18; TEMP 36.8; O2SAT 92
[2021-08-31] MEDS: polyethylene glycoL 3350 17 GM POWD.PACK PO (09:07)
[2021-08-31] MEDS: Thiamine HCL 100 MG TABLET PO (09:07)
[2021-08-31] MEDS: Docusate Sodium 100 MG CAPSULE PO (09:07)
[2021-08-31] MEDS: Ferrous Sulfate 300 MG/5 ML LIQUID PO ×2 (09:07→17:36)
--- NOTE | 2021-08-31 10:08 | HO.PM.IMPN ---
Subjective Subjective Date of Service: 08/31/21 Interval History: Follow-up on encephalopathy ?interval history: her memory is much improved, oriented to self, place and time Review of Systems memory issues, no agitation, no fever Physical Exam Vital Signs: Vital Signs: Last Vital Signs Temp 98.2 F 08/31/21 08:00 Pulse 73 08/31/21 08:00 Resp 18 08/31/21 08:00 BP 146/70 H 08/31/21 08:00 Pulse Ox 92 08/31/21 08:00 O2 Del Method 08/31/21 08:00 BMI result Body Mass Index 28.3 Const: Other: General: AO X3 Resp: CTA bilateral CVS: S1,S2,RRR GI: +BS, NT, no distention Skin: No rash Neuro: motor grossly intact Psych: appropriate affect, insight is better Objective Data Active Medications Acetaminophen (Acetaminophen 325 Mg Tablet) 650 mg PO Q6H PRN PRN Reason: Pain, Mild (Pain Scale 1-3) Benzonatate (Benzonatate 100 Mg Capsule) 200 mg PO TID PRN PRN Reason: cough Last Admin: 07/13/21 16:52 Dose: 200 mg Documented By: ROXANA Docusate Sodium (Docusate Sodium 100 Mg Capsule) 100 mg PO DAILY [facility] Last Admin: 08/31/21 09:07 Dose: 100 mg Documented By: IVANNA Enoxaparin Sodium (Enoxaparin Sodium 40 Mg/0.4 Ml Syringe) 40 mg SUBCUT Q24H [facility] Last Admin: 08/31/21 05:38 Dose: 40 mg Documented By: IRIS Ferrous Sulfate (Ferrous Sulfate 300 Mg/5 Ml Liquid) 300 mg PO BIDWM [facility] Last Admin: 08/31/21 09:07 Dose: 300 mg Documented By: IVANNA Guaifenesin/Dextromethorphan (Guaifenesin Dm 200/20/10 Ml 10 Ml Syrup) 5 ml PO Q4H PRN PRN Reason: cough Multivitamins/Vitamin C (Multivitamin Tablet) 1 tab PO BEDTIME [facility] Last Admin: 08/30/21 19:59 Dose: 1 tab Documented By: IRIS Omeprazole (Omeprazole 20 Mg Capsule.) 20 mg PO DAILY@0630 [facility] Last Admin: 08/31/21 05:38 Dose: 20 mg Documented By: IRIS Ondansetron HCl (Ondansetron Hcl 4 Mg/2 Ml Vial) 4 mg IVPUSH Q8H PRN PRN Reason: Nausea and Vomiting Polyethylene Glycol (Polyethylene Glycol 3350 17 Gm Powd.Pack) 17 gm PO DAILY [facility] Last Admin: 08/31/21 09:07 Dose: 17 gm Documented By: IVANNA Thiamine HCl (Thiamine Hcl 100 Mg Tablet) 100 mg PO DAILY [facility] Last Admin: 08/31/21 09:07 Dose: 100 mg Documented By: IVANNA Labs CBC & Chem 7: 08/19/21 05:30 08/19/21 05:30 Assessment and Plan (1) Toxic encephalopathy: Status: Acute Plan 46-year-old female with of substance abuse presents to the hospital with confusion found to lack capacity to make medical decisions and awaiting placement essentially clincally change since last encounter, essentially awaiting safe dispo Toxic metabolic encephalopathy, urine toxicology positive for cocaine, fentanyl, and marijuana although the patient adamantly denied using any illicit substance, her parents confirmed that she was actively using substances Per speech therapy note pt has ongoing moderate cognitive linguistic impairment, characterized by significant impairments in short-term memory, executive functions, generative naming; mild impairments in attention and visuospatial skills. Pych reassessed on 08/12 and reports that she still not have capacity to make decisions, healthcare proxy is invoked. I think she needs continous assessment by psych to determine disposition, she's seem to be doing much better today,... She's fully oriented, and judgment seems way better than earlier, I think her competency should be reassessed by Psych E Coli UTI completed course of Abx DVT prophylaxis Lovenox need for inpatient due to cognitive linguistic impairment , waiting safe disposition. Family not able to care for her at home. cm arranging for rehab bed. Quality Stroke Does the patient have a stroke diagnosis?: No VTE Prior VTE?: No VTE Risk Level:: Medical - moderate - high VTE Device Contraindication: Treatment Not Indicated VTE Drug Contraindication: N/A - Med Ordered
[2021-08-31 16:00] VITALS: BP 132/80; PULSE 93; RESP 16; TEMP 36.2; O2SAT 94
[2021-08-31] MEDS: Multivitamin TABLET 1 TAB PO (20:50)
[2021-08-31 23:32] VITALS: BP 98/61; PULSE 91; RESP 19; TEMP 36.3; O2SAT 93
[2021-09-01] MEDS: Omeprazole 20 MG CAPSULE.DR PO (05:55)
[2021-09-01] MEDS: Enoxaparin Sodium 40 MG/0.4 ML SYRINGE SUBCUT (05:55)
[2021-09-01 08:00] VITALS: BP 119/74; PULSE 80; RESP 18; TEMP 36.6; O2SAT 95
[2021-09-01] MEDS: Ferrous Sulfate 300 MG/5 ML LIQUID PO ×2 (09:34→17:32)
[2021-09-01] MEDS: Docusate Sodium 100 MG CAPSULE PO (09:34)
[2021-09-01] MEDS: Thiamine HCL 100 MG TABLET PO (09:34)
[2021-09-01] MEDS: polyethylene glycoL 3350 17 GM POWD.PACK PO (09:34)
--- NOTE | 2021-09-01 09:46 | HO.PM.IMPN ---
Subjective Subjective Date of Service: 09/01/21 Interval History: Follow-up on encephalopathy ?interval history: her memory is much improved, oriented to self, place and time--overall better Review of Systems memory issues, no agitation, no fever Physical Exam Vital Signs: Vital Signs: Last Vital Signs Temp 97.8 F 09/01/21 08:00 Pulse 80 09/01/21 08:00 Resp 18 09/01/21 08:00 BP 119/74 09/01/21 08:00 Pulse Ox 95 09/01/21 08:00 O2 Del Method 09/01/21 08:00 BMI result Body Mass Index 28.3 Const: Other: General: AO X3 Resp: CTA bilateral CVS: S1,S2,RRR GI: +BS, NT, no distention Skin: No rash Neuro: motor grossly intact Psych: appropriate affect, insight is better Objective Data Active Medications Acetaminophen (Acetaminophen 325 Mg Tablet) 650 mg PO Q6H PRN PRN Reason: Pain, Mild (Pain Scale 1-3) Benzonatate (Benzonatate 100 Mg Capsule) 200 mg PO TID PRN PRN Reason: cough Last Admin: 07/13/21 16:52 Dose: 200 mg Documented By: ROXANA Docusate Sodium (Docusate Sodium 100 Mg Capsule) 100 mg PO DAILY [facility] Last Admin: 09/01/21 09:34 Dose: 100 mg Documented By: AZEEM Enoxaparin Sodium (Enoxaparin Sodium 40 Mg/0.4 Ml Syringe) 40 mg SUBCUT Q24H [facility] Last Admin: 09/01/21 05:55 Dose: 40 mg Documented By: DAVID Ferrous Sulfate (Ferrous Sulfate 300 Mg/5 Ml Liquid) 300 mg PO BIDWM [facility] Last Admin: 09/01/21 09:34 Dose: 300 mg Documented By: AZEEM Guaifenesin/Dextromethorphan (Guaifenesin Dm 200/20/10 Ml 10 Ml Syrup) 5 ml PO Q4H PRN PRN Reason: cough Multivitamins/Vitamin C (Multivitamin Tablet) 1 tab PO BEDTIME [facility] Last Admin: 08/31/21 20:50 Dose: 1 tab Documented By: DAVID Omeprazole (Omeprazole 20 Mg Capsule.) 20 mg PO DAILY@0630 [facility] Last Admin: 09/01/21 05:55 Dose: 20 mg Documented By: DAVID Ondansetron HCl (Ondansetron Hcl 4 Mg/2 Ml Vial) 4 mg IVPUSH Q8H PRN PRN Reason: Nausea and Vomiting Polyethylene Glycol (Polyethylene Glycol 3350 17 Gm Powd.Pack) 17 gm PO DAILY [facility] Last Admin: 09/01/21 09:34 Dose: 17 gm Documented By: AZEEM Thiamine HCl (Thiamine Hcl 100 Mg Tablet) 100 mg PO DAILY [facility] Last Admin: 09/01/21 09:34 Dose: 100 mg Documented By: AZEEM Labs CBC & Chem 7: 08/19/21 05:30 08/19/21 05:30 Assessment and Plan (1) Cognitive impairment: Status: Acute Plan 46-year-old female with of substance abuse presents to the hospital with confusion found to lack capacity to make medical decisions and awaiting placement essentially clincally change since last encounter, essentially awaiting safe dispo Toxic metabolic encephalopathy, urine toxicology positive for cocaine, fentanyl, and marijuana although the patient adamantly denied using any illicit substance, her parents confirmed that she was actively using substances Per speech therapy note pt has ongoing moderate cognitive linguistic impairment, characterized by significant impairments in short-term memory, executive functions, generative naming; mild impairments in attention and visuospatial skills. Pych reassessed on 08/12 and reports that she still not have capacity to make decisions, healthcare proxy is invoked. I think she needs continous assessment by psych to determine disposition, she's seem to be doing much better today,... She's fully oriented, and judgment seems way better than earlier. Psychiatry to reassess her decision making capacity today E Coli UTI completed course of Abx DVT prophylaxis Lovenox need for inpatient due to cognitive linguistic impairment , waiting safe disposition. Family not able to care for her at home. cm arranging for rehab bed. Quality Stroke Does the patient have a stroke diagnosis?: No VTE Prior VTE?: No VTE Risk Level:: Medical - moderate - high VTE Device Contraindication: Treatment Not Indicated VTE Drug Contraindication: N/A - Med Ordered
--- NOTE | 2021-09-01 11:58 | P.CNPS_ITS ---
History of Present Illness Date of Service: 09/01/21 Chief Complaint: UTI, encephalopathy Reason for Consult: assess for improvement, capacity Requesting physician: [facility] Sources of Information: patient interviewed and chart reviewed HPI Narrative: Patient is 46-year-old female with PMH of polysubstance use, presented to hospital with episodes of confusion. Found to have encephalopathy, UTI, admitted for care and treatment. Found to have hypo attenuation in globus pallidus on MR I. I have met with her multiple times during this admission, and it was determined that she lacked capacity at those times. Her healthcare proxy has been invoked, who is her father. I have been asked to meet with her again today in order to reassess memory, recall, overall capacity. Patient was sitting up in bed, watching television when I entered the room. She smiled, and was pleasant and cooperative. She stated that she remembered me, however was unable to state my name. She was agreeable to meet with me. I asked her where she was, and she stated [facility] . I asked her the date. She was able to say August, but unable to say day of week, date. She stated 2020 when asked the year. When asked the circumstances under which she was admitted to the hospital, she stated ?overdosed, I believe ?. When asked on what substance or medication, she stated ?not 100% sure ?. When asked her address, she stated ?I do not know ?. When asked who she lived with, she stated ?by myself ?. When asked to tell me about her children, she states that she has 5 sons and 1 daughter. (transplant case manager informed me she actually has 4 sons and 2 daughters). She states she has 1 daughter in the . (she has 2 children in the ). She stated that she has 1 granddaughter, 2 years old. She states that the rest of her children live close by. She states that her children are adults. However, it has been confirmed that she has an 11-year-old daughter that is currently living with patient's mother. When asked where she worked, she stated that she was working at [email or web address], for almost a year. (transplant case manager had verified with family that she had job for only several months). When asked if she has any history of substance use, she stated ?no ?. When asked to describe a typical day, she states ?I get up, clean a little, go to work ?. When asked what type of treatment she has been receiving here, she states ?they have been working with me to get my memory back . When asked to describe any treatments, she states ?I don't know ?. When asked what her plans were upon discharge, she stated that she is ?going to go home, or stay with her parents ?. When speaking with transplant case manager, these are not options, due to multiple reasons. She continues to struggle with word recall, unable to remember words after several minutes. She would attempt to answer most questions, and then would trail off, and after some time would state ?I don't know ?. She continues to display impairment in short-term memory and executive functioning. Past Psychiatric History: History of depression in the past, reports seeing a provider, does not remember if prescribed meds, or therapy. Father later reported several residential substance use programs. 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 Has 6 children. Review of Systems Review of Systems Poor memory, cognition Constitutional: Reports no additional constitutional complaints [facility] Medical History Polysubstance abuse Surgical History No pertinent past surgical history Social History: Parents . Father is healthcare proxy. She has 6 children. Currently unemployed. Trauma History: Unknown Diagnostics Vital Signs (24Hr): Vital Signs - 24 hr 08/31/21 16:00 08/31/21 23:32 09/01/21 00:00 Temperature 97.2 F 97.4 F Pulse Rate 93 91 Respiratory Rate 16 19 Blood Pressure 132/80 98/61 Pulse Oximetry 94 93 Oxygen Delivery Method Room Air Room Air Room Air 09/01/21 08:00 Temperature 97.8 F Pulse Rate 80 Respiratory Rate 18 Blood Pressure 119/74 Pulse Oximetry 95 Oxygen Delivery Method Room Air BMI result Body Mass Index 28.3 Labs Results: 08/19/21 05:30 08/19/21 05:30 Imaging Radiology Impressions: ITS Impressions Head CT 07/11/21 02:42 IMPRESSION: Symmetric regions of of hypoattenuation in the globus pallidus, which appears slightly more prominent than on 07/06/2021. This appearance can be seen with carbon monoxide poisoning and may be further evaluated with MRI. This was discussed with Dr. Jaeger on 07/11/2021 3:22 AM. Chest X-Ray 07/11/21 02:45 IMPRESSION: No acute cardiopulmonary findings. Abdomen X-Ray 07/11/21 20:25 IMPRESSION: 1. No radiopaque foreign body. The patient is cleared for MRI. 2. Left renal upper pole 19 mm calculus, as on CT of 03/26/2017. Brain MRI 07/11/21 21:35 IMPRESSION: Expansile T2 signal changes involving the globus pallidus bilaterally associated with intermediate reduced diffusivity. There is also restricted diffusion within the hippocampi bilaterally and involving portions of the right and left caudate nucleus as well as bandlike T2 signal changes involving the cerebellar white matter bilaterally. Findings could be toxic/metabolic in etiology and should be correlated for any recent drug exposures, particularly fentanyl/opioid exposure given bilateral hippocampal involvement. Carbon monoxide toxicity can present with a subset of these findings. Infectious etiologies should be considered in the appropriate clinical context. Short-term follow-up inclusive of post contrast imaging would be helpful in further assessment. Mental Status Exam Mental Status Exam Narrative: Well-developed, well-nourished female, in NAD. Sitting up in bed. Wearing bathrobe. No evidence of perceptual disturbance, no tics or tremors observed. Ambulation was not observed. Patient Appearance: Appropriate Patient Orientation: Person (self) and Place ([facility]) Level of Consciousness: Awake Patient Behavior: Cooperative and Good Eye Contact Mood Description: Appropriate Affect Description: Flat Patient Cognition Impaired: Yes Ability to Follow Directions: Good Speech Pattern: Impoverished, Monotone, Soft-Spoken and Long Pauses Memory Description: Remote Impaired, Immediate Impaired, Senior Living Impaired, Episodic Impaired, Recent Impaired and Working Impaired Hallucinations: None Delusions: Not Present Thought Process: Disoriented, Slowed Thinking and Confusion Thought Content: positive for [place], positive for Poverty of Content and pos itive for Slowed Thinking Judgement: Poor Medications Medications Current Medications Acetaminophen (Acetaminophen 325 Mg Tablet) 650 mg PO Q6H PRN PRN Reason: Pain, Mild (Pain Scale 1-3) Benzonatate (Benzonatate 100 Mg Capsule) 200 mg PO TID PRN PRN Reason: cough Last Admin: 07/13/21 16:52 Dose: 200 mg Docusate Sodium (Docusate Sodium 100 Mg Capsule) 100 mg PO DAILY [facility] Last Admin: 09/01/21 09:34 Dose: 100 mg Enoxaparin Sodium (Enoxaparin Sodium 40 Mg/0.4 Ml Syringe) 40 mg SUBCUT Q24H [facility] Last Admin: 09/01/21 05:55 Dose: 40 mg Ferrous Sulfate (Ferrous Sulfate 300 Mg/5 Ml Liquid) 300 mg PO BIDWM [facility] Last Admin: 09/01/21 09:34 Dose: 300 mg Guaifenesin/Dextromethorphan (Guaifenesin Dm 200/20/10 Ml 10 Ml Syrup) 5 ml PO Q4H PRN PRN Reason: cough Multivitamins/Vitamin C (Multivitamin Tablet) 1 tab PO BEDTIME [facility] Last Admin: 08/31/21 20:50 Dose: 1 tab Omeprazole (Omeprazole 20 Mg Capsule.Dr) 20 mg PO DAILY@0630 [facility] Last Admin: 09/01/21 05:55 Dose: 20 mg Ondansetron HCl (Ondansetron Hcl 4 Mg/2 Ml Vial) 4 mg IVPUSH Q8H PRN PRN Reason: Nausea and Vomiting Polyethylene Glycol (Polyethylene Glycol 3350 17 Gm Powd.Pack) 17 gm PO DAILY [facility] Last Admin: 09/01/21 09:34 Dose: 17 gm Thiamine HCl (Thiamine Hcl 100 Mg Tablet) 100 mg PO DAILY [facility] Last Admin: 09/01/21 09:34 Dose: 100 mg Allergies Allergies Allergy/AdvReac Type Severity Reaction Status Date / Time codeine [CODEINE] Allergy Severe ANAPHLAXIS Verified 01/27/21 10:00 Penicillins Allergy Severe HIVES Verified 01/27/21 10:00 penicillin V Allergy Unknown hives Verified 01/27/21 10:00 Assessment & Plan Assessment & Plan (1) Encounter for assessment of healthcare decision-making capacity: Status: Acute Code(s): Z02.79 - Encounter for issue of other medical certificate Assessment and Plan: Patient continues with cognitive impairments. She was cooperative with interview, however struggled with short-term memory, long-term memory, as well as executive functioning. She was unable to state the date, stating that it was August, however was unable to state day of week,day of month, or year. She was unable to tell me her address. She was unable to state how she arrived at hospital, except to say a possible overdose. When asked if it was a medication or substance, she was unable to say. Previous MoCA's completed during this stay have shown difficulty with alternating trail making, naming, memory, attention, sentence repetition, verbal fluency, abstraction, and delayed recall. Although a Ish cognitive assessment was not performed today, patient continues to display significant difficulties with executive function, memory, conceptual thinking, and orientation. Although patient has made some slight improvements, such as knowing the month, and that she is at [facility], improvement has not been significant enough so that she would have capacity at this time. She continues to lack capacity regarding receiving information regarding her current medical condition, ability to process it in a meaningful way, and therefore make informed decisions. Plan Patient continues to lack capacity at this time. She continues to struggle with executive function, memory, conceptual thinking, and orientation. She is unable to take in any information regarding her current medical condition, process it in any type of meaningful way, and therefore make any type of informed decisions. I have shared this with provider Dr. Jimbo Chino. I spent minutes with the patient and/or on the patient floor today, greater than?50% of which was spent counseling/coordinating care. Patient educated on: diagnosis, therapeutic strategies and medical condition Informed Consent: does not understand and further education needed
--- NOTE | 2021-09-01 14:51 | MHC.CM.PN ---
NURSE TIP STITCHER NOTE ELECTRONIC MEDICAL RECORD REVIEWED ALONFG WITH CASE DISCUSSED WITH STAFF NURSE AND THE HOPSITLIST , MET WITH PATIENT HUMBERTO ENCOURAGING HER TO TAKE A SHOWER , AMBLEORALATE IN THE HALLS ADN TRY TO READ OR UTILIZE THE COLORING BOOKS, RECIVED T/C FROM [facility] FROM [facility] [phone] TEXT [phone] SUPERVISOR BRINE AND NURSE WILL BE COMING TO [facility] FOSTER CARE PROGRAM WILL NEED COMPLETED MDS .. CALLED TO PATIENT FATHER JOHNATHAN MONTIEL HCP MESSAGE LEFT FOR HIM RGARIDN THE VISIT TOMORROW AND WELCOMING HIM TO ALSO COME , ALSO T/C TO ASHLEY PATIENTS MOTHER AND HCP- INFORMING HER OF THE VISIT TOMORROW AT 2;30 AND WELCOMING HER TO COME ALSO / VEBAL CONSENT TO RELASE INFORMATION TO [facility] PATIENT WAS EVALUATED BY PSYCH SOME MILD [id number] BUT HEALTH CARE PROXY REMAINS INVOKED (PLEASE SEE PSYCH NOTES 09/01/21) STUDENT ADMISSIONS CLERK UPDATED WELL THE HOSPITLIST
[2021-09-01 15:41] VITALS: BP 108/66; PULSE 72; RESP 18; TEMP 36.6; O2SAT 98
[2021-09-01] MEDS: Multivitamin TABLET 1 TAB PO (19:52)
[2021-09-01 23:40] VITALS: BP 101/57; PULSE 94; RESP 16; TEMP 36.7; O2SAT 95
[2021-09-02] MEDS: Enoxaparin Sodium 40 MG/0.4 ML SYRINGE SUBCUT (05:14)
[2021-09-02] MEDS: Omeprazole 20 MG CAPSULE.DR PO (05:14)
[2021-09-02 07:47] VITALS: BP 115/78; PULSE 83; RESP 18; TEMP 36.8; O2SAT 94
--- NOTE | 2021-09-02 09:27 | HO.PM.IMPN ---
Subjective Subjective Date of Service: 09/02/21 Interval History: Follow-up on encephalopathy ?interval history: no significant change Review of Systems Poor memory, cognition Physical Exam Vital Signs: Vital Signs: Last Vital Signs Temp 98.3 F 09/02/21 07:47 Pulse 83 09/02/21 07:47 Resp 18 09/02/21 07:47 BP 115/78 09/02/21 07:47 Pulse Ox 94 09/02/21 07:47 O2 Del Method 09/02/21 07:47 BMI result Body Mass Index 28.3 Const: Other: General: AO X3 Resp: CTA bilateral CVS: S1,S2,RRR GI: +BS, NT, no distention Skin: No rash Neuro: motor grossly intact Psych: appropriate affect, insight is questionable Objective Data Active Medications Acetaminophen (Acetaminophen 325 Mg Tablet) 650 mg PO Q6H PRN PRN Reason: Pain, Mild (Pain Scale 1-3) Benzonatate (Benzonatate 100 Mg Capsule) 200 mg PO TID PRN PRN Reason: cough Last Admin: 07/13/21 16:52 Dose: 200 mg Documented By: ROXANA Docusate Sodium (Docusate Sodium 100 Mg Capsule) 100 mg PO DAILY [facility] Last Admin: 09/01/21 09:34 Dose: 100 mg Documented By: AZEEM Enoxaparin Sodium (Enoxaparin Sodium 40 Mg/0.4 Ml Syringe) 40 mg SUBCUT Q24H [facility] Last Admin: 09/02/21 05:14 Dose: 40 mg Documented By: ALAN Ferrous Sulfate (Ferrous Sulfate 300 Mg/5 Ml Liquid) 300 mg PO BIDWM [facility] Last Admin: 09/01/21 17:32 Dose: 300 mg Documented By: AZEEM Guaifenesin/Dextromethorphan (Guaifenesin Dm 200/20/10 Ml 10 Ml Syrup) 5 ml PO Q4H PRN PRN Reason: cough Multivitamins/Vitamin C (Multivitamin Tablet) 1 tab PO BEDTIME [facility] Last Admin: 09/01/21 19:52 Dose: 1 tab Documented By: ALAN Omeprazole (Omeprazole 20 Mg Capsule.) 20 mg PO DAILY@0630 [facility] Last Admin: 09/02/21 05:14 Dose: 20 mg Documented By: ALAN Ondansetron HCl (Ondansetron Hcl 4 Mg/2 Ml Vial) 4 mg IVPUSH Q8H PRN PRN Reason: Nausea and Vomiting Polyethylene Glycol (Polyethylene Glycol 3350 17 Gm Powd.Pack) 17 gm PO DAILY [facility] Last Admin: 09/01/21 09:34 Dose: 17 gm Documented By: AZEEM Thiamine HCl (Thiamine Hcl 100 Mg Tablet) 100 mg PO DAILY [facility] Last Admin: 09/01/21 09:34 Dose: 100 mg Documented By: AZEEM Labs CBC & Chem 7: 08/19/21 05:30 08/19/21 05:30 Assessment and Plan (1) Cognitive impairment: Status: Acute Plan 46-year-old female with of substance abuse presents to the hospital with confusion found to lack capacity to make medical decisions and awaiting placement essentially clincally change since last encounter, essentially awaiting safe dispo Toxic metabolic encephalopathy, urine toxicology positive for cocaine, fentanyl, and marijuana although the patient adamantly denied using any illicit substance, her parents confirmed that she was actively using substances Per speech therapy note pt has ongoing moderate cognitive linguistic impairment, characterized by significant impairments in short-term memory, executive functions, generative naming; mild impairments in attention and visuospatial skills. Pych reassessed on 08/12 and reports that she still not have capacity to make decisions, healthcare proxy is invoked. I think she needs continous assessment by psych to determine disposition, she's seem to be doing much better today,... She's fully oriented, and judgment seems way better than earlier. Psychiatry evaluation 09/01: Patient continues to lack capacity at this time.??She continues to struggle with executive function, memory, conceptual thinking, and orientation.? She is unable to take in any information regarding her current medical condition, process it in any type of meaningful way, and therefore make any type of informed decisions.? ? E Coli UTI completed course of Abx DVT prophylaxis Lovenox need for inpatient due to cognitive linguistic impairment , waiting safe disposition. Family not able to care for her at home. cm arranging for rehab bed. Quality Stroke Does the patient have a stroke diagnosis?: No VTE Prior VTE?: No VTE Risk Level:: Medical - moderate - high VTE Device Contraindication: Treatment Not Indicated VTE Drug Contraindication: N/A - Med Ordered
[2021-09-02] MEDS: Docusate Sodium 100 MG CAPSULE PO (09:50)
[2021-09-02] MEDS: Ferrous Sulfate 300 MG/5 ML LIQUID PO ×2 (09:50→17:36)
[2021-09-02] MEDS: Thiamine HCL 100 MG TABLET PO (09:50)
[2021-09-02] MEDS: polyethylene glycoL 3350 17 GM POWD.PACK PO (09:50)
[2021-09-02 14:55] VITALS: BP 130/60; PULSE 77; RESP 16; TEMP 36.9; O2SAT 97
--- NOTE | 2021-09-02 15:30 | MHC.CM.PN ---
nurse family service caseworker note electronic medical record reviewed along with case discussed with hospitlaist flaco with [facility] and [facility] services regarding adult foster home eligeability for this patient (yola [phone] ext [phone] mds paperwork completed and clincial information fiven to them with signed consent from hcp. referrals sent response no bed availability , see list in shane , t/c to jody galarza at [facility] additional information ,message left for him how to contact me or case management, caregivers non medical to continue to follow
[2021-09-02 16:03] VITALS: BP 126/75; PULSE 86; RESP 18; TEMP 36.7; O2SAT 97
[2021-09-02 18:51] VITALS: BP 118/61; PULSE 97; RESP 18; TEMP 36.8; O2SAT 95
[2021-09-02] MEDS: Multivitamin TABLET 1 TAB PO (20:38)
[2021-09-02 23:07] VITALS: BP 110/68; PULSE 86; RESP 18; TEMP 36.2; O2SAT 94
[2021-09-03] MEDS: Enoxaparin Sodium 40 MG/0.4 ML SYRINGE SUBCUT (05:11)
[2021-09-03] MEDS: Omeprazole 20 MG CAPSULE.DR PO (05:16)
[2021-09-03 07:46] VITALS: BP 108/73; PULSE 80; RESP 18; TEMP 36.3; O2SAT 95
[2021-09-03] MEDS: Thiamine HCL 100 MG TABLET PO (09:35)
[2021-09-03] MEDS: Docusate Sodium 100 MG CAPSULE PO (09:35)
[2021-09-03] MEDS: polyethylene glycoL 3350 17 GM POWD.PACK PO (09:35)
[2021-09-03] MEDS: Ferrous Sulfate 300 MG/5 ML LIQUID PO ×2 (09:35→17:58)
--- NOTE | 2021-09-03 14:17 | HO.PM.IMPN ---
Subjective Subjective Date of Service: 09/03/21 Interval History: Seen and examined this morning Follow-up for placement No overnight events No specific complaints this morning Patient is tolerating a diet, voiding without difficulty. Denies any chest pain, shortness of breath, abdominal pain Review of Systems Review of Systems: Yes all other systems are reviewed and are negative Constitutional Constitutional: Denies chills and Denies fever(s) Cardiovascular Cardiovascular: Denies chest pain Gastrointestinal Gastrointestinal: Denies abdominal pain Physical Exam Vital Signs: Vital Signs: Last Vital Signs Temp 97.4 F 09/03/21 07:46 Pulse 80 09/03/21 07:46 Resp 18 09/03/21 07:46 BP 108/73 09/03/21 07:46 Pulse Ox 95 09/03/21 07:46 O2 Del Method 09/03/21 07:46 BMI result Body Mass Index 28.3 Const: General: cooperative, comfortable, no acute distress, alert and awake Nutritional Appearance: average body habitus Eyes: Pupils: Equal, round and reactive pupils present EOM: EOMs intact bilaterally Resp: Effort & Inspection: normal respiratory effort and able to speak in complete sentences Auscultation: clear to auscultation bilaterally Cardio: Rate: regular rate Heart sounds: S1 normal heart sound present and S2 normal heart sound present GI: Inspection: No distended Palpation (GI): Soft to palpation and nontender Neuro: Cranial nerves: Yes Equal, round and reactive pupils present Extrem: Other: Able to move all 4 extremities spontaneously General: Yes no pedal edema Objective Data Active Medications Acetaminophen (Acetaminophen 325 Mg Tablet) 650 mg PO Q6H PRN PRN Reason: Pain, Mild (Pain Scale 1-3) Benzonatate (Benzonatate 100 Mg Capsule) 200 mg PO TID PRN PRN Reason: cough Last Admin: 07/13/21 16:52 Dose: 200 mg Documented By: COTEMA Docusate Sodium (Docusate Sodium 100 Mg Capsule) 100 mg PO DAILY REPLACED BY [facility] Last Admin: 09/03/21 09:35 Dose: 100 mg Documented By: LYSRodolfo Enoxaparin Sodium (Enoxaparin Sodium 40 Mg/0.4 Ml Syringe) 40 mg SUBCUT Q24H REPLACED BY [facility] Last Admin: 09/03/21 05:11 Dose: 40 mg Documented By: MORRINL Ferrous Sulfate (Ferrous Sulfate 300 Mg/5 Ml Liquid) 300 mg PO BIDWM REPLACED BY [facility] Last Admin: 09/03/21 09:35 Dose: 300 mg Documented By: IVANNA Guaifenesin/Dextromethorphan (Guaifenesin Dm 200/20/10 Ml 10 Ml Syrup) 5 ml PO Q4H PRN PRN Reason: cough Multivitamins/Vitamin C (Multivitamin Tablet) 1 tab PO BEDTIME REPLACED BY [facility] Last Admin: 09/02/21 20:38 Dose: 1 tab Documented By: NICOLAS Omeprazole (Omeprazole 20 Mg Capsule.) 20 mg PO DAILY@0630 REPLACED BY [facility] Last Admin: 09/03/21 05:16 Dose: 20 mg Documented By: NICOLAS Ondansetron HCl (Ondansetron Hcl 4 Mg/2 Ml Vial) 4 mg IVPUSH Q8H PRN PRN Reason: Nausea and Vomiting Polyethylene Glycol (Polyethylene Glycol 3350 17 Gm Powd.Pack) 17 gm PO DAILY REPLACED BY [facility] Last Admin: 09/03/21 09:35 Dose: 17 gm Documented By: IVANNA Thiamine HCl (Thiamine Hcl 100 Mg Tablet) 100 mg PO DAILY REPLACED BY [facility] Last Admin: 09/03/21 09:35 Dose: 100 mg Documented By: IVANNA Labs CBC & Chem 7: 08/19/21 05:30 08/19/21 05:30 Assessment and Plan (1) Cognitive impairment: Status: Acute Plan 46-year-old female with of substance abuse presents to the hospital with confusion found to lack capacity to make medical decisions and awaiting placement essentially clincally change since last encounter, essentially awaiting safe dispo Toxic metabolic encephalopathy, urine toxicology positive for cocaine, fentanyl, and marijuana although the patient adamantly denied using any illicit substance, her parents confirmed that she was actively using substances Per speech therapy note pt has ongoing moderate cognitive linguistic impairment, characterized by significant impairments in short-term memory, executive functions, generative naming; mild impairments in attention and visuospatial skills. Pych reassessed on 08/12 and reports that she still not have capacity to make decisions, healthcare proxy is invoked. I think she needs continous assessment by psych to determine disposition, she's seem to be doing much better today,... She's fully oriented, and judgment seems way better than earlier. Psychiatry evaluation 09/01: Patient continues to lack capacity at this time.??She continues to struggle with executive function, memory, conceptual thinking, and orientation.? She is unable to take in any information regarding her current medical condition, process it in any type of meaningful way, and therefore make any type of informed decisions.? ? E Coli UTI completed course of Abx DVT prophylaxis Lovenox need for inpatient due to cognitive linguistic impairment , waiting safe disposition. Family not able to care for her at home. cm arranging for rehab bed. Attending-Dr. Gomez Quality Stroke Does the patient have a stroke diagnosis?: No VTE Prior VTE?: No VTE Risk Level:: Medical - moderate - high VTE Device Contraindication: Treatment Not Indicated VTE Drug Contraindication: N/A - Med Ordered
[2021-09-03 15:20] VITALS: BP 110/61; PULSE 68; RESP 18; TEMP 37.1; O2SAT 98
[2021-09-03] MEDS: Multivitamin TABLET 1 TAB PO (20:20)
[2021-09-03 23:39] VITALS: BP 103/58; PULSE 79; RESP 19; TEMP 36.9; O2SAT 94
[2021-09-04] MEDS: Enoxaparin Sodium 40 MG/0.4 ML SYRINGE SUBCUT (06:09)
[2021-09-04] MEDS: Omeprazole 20 MG CAPSULE.DR PO (06:09)
[2021-09-04 07:51] VITALS: BP 118/75; PULSE 84; RESP 18; TEMP 36.7; O2SAT 95
[2021-09-04] MEDS: Ferrous Sulfate 300 MG/5 ML LIQUID PO ×2 (08:30→17:59)
[2021-09-04] MEDS: Docusate Sodium 100 MG CAPSULE PO (08:30)
[2021-09-04] MEDS: Thiamine HCL 100 MG TABLET PO (08:30)
[2021-09-04] MEDS: polyethylene glycoL 3350 17 GM POWD.PACK PO (08:30)
--- NOTE | 2021-09-04 13:13 | HO.PM.IMPN ---
Subjective Subjective Date of Service: 09/04/21 Interval History: Seen this morning, examined No specific complaints No overnight events Review of Systems Review of Systems: Yes all other systems are reviewed and are negative Constitutional Constitutional: Denies chills and Denies fever(s) Cardiovascular Cardiovascular: Denies chest pain, Denies palpitations and Denies dyspnea Respiratory Respiratory: Denies cough and Denies dyspnea Gastrointestinal Gastrointestinal: Denies abdominal pain Endocrine Endocrine: Denies palpitations Physical Exam Vital Signs: Vital Signs: Last Vital Signs Temp 98.0 F 09/04/21 07:51 Pulse 84 09/04/21 07:51 Resp 18 09/04/21 07:51 BP 118/75 09/04/21 07:51 Pulse Ox 95 09/04/21 07:51 O2 Del Method 09/04/21 07:51 BMI result Body Mass Index 28.3 Const: General: cooperative, comfortable, no acute distress, alert and awake Nutritional Appearance: average body habitus Eyes: Pupils: Equal, round and reactive pupils present EOM: EOMs intact bilaterally Resp: Effort & Inspection: normal respiratory effort and able to speak in complete sentences Auscultation: clear to auscultation bilaterally Cardio: Rate: regular rate Heart sounds: S1 normal heart sound present and S2 normal heart sound present GI: Inspection: No distended Palpation (GI): Soft to palpation and nontender Neuro: Cranial nerves: Yes Equal, round and reactive pupils present Extrem: Other: Able to move all 4 extremities spontaneously General: Yes no pedal edema Objective Data Active Medications Acetaminophen (Acetaminophen 325 Mg Tablet) 650 mg PO Q6H PRN PRN Reason: Pain, Mild (Pain Scale 1-3) Benzonatate (Benzonatate 100 Mg Capsule) 200 mg PO TID PRN PRN Reason: cough Last Admin: 07/13/21 16:52 Dose: 200 mg Documented By: ROXANA Docusate Sodium (Docusate Sodium 100 Mg Capsule) 100 mg PO DAILY [facility] Last Admin: 09/04/21 08:30 Dose: 100 mg Documented By: ERICA Enoxaparin Sodium (Enoxaparin Sodium 40 Mg/0.4 Ml Syringe) 40 mg SUBCUT Q24H [facility] Last Admin: 09/04/21 06:09 Dose: 40 mg Documented By: JAIR Ferrous Sulfate (Ferrous Sulfate 300 Mg/5 Ml Liquid) 300 mg PO BIDWM [facility] Last Admin: 09/04/21 08:30 Dose: 300 mg Documented By: ERICA Guaifenesin/Dextromethorphan (Guaifenesin Dm 200/20/10 Ml 10 Ml Syrup) 5 ml PO Q4H PRN PRN Reason: cough Multivitamins/Vitamin C (Multivitamin Tablet) 1 tab PO BEDTIME [facility] Last Admin: 09/03/21 20:20 Dose: 1 tab Documented By: JAIR Omeprazole (Omeprazole 20 Mg Capsule.) 20 mg PO DAILY@0630 [facility] Last Admin: 09/04/21 06:09 Dose: 20 mg Documented By: JAIR Ondansetron HCl (Ondansetron Hcl 4 Mg/2 Ml Vial) 4 mg IVPUSH Q8H PRN PRN Reason: Nausea and Vomiting Polyethylene Glycol (Polyethylene Glycol 3350 17 Gm Powd.Pack) 17 gm PO DAILY [facility] Last Admin: 09/04/21 08:30 Dose: 17 gm Documented By: ERICA Thiamine HCl (Thiamine Hcl 100 Mg Tablet) 100 mg PO DAILY [facility] Last Admin: 09/04/21 08:30 Dose: 100 mg Documented By: ERICA Labs CBC & Chem 7: 08/19/21 05:30 08/19/21 05:30 Assessment and Plan (1) Cognitive impairment: Status: Acute Plan 46-year-old female with of substance abuse presents to the hospital with confusion found to lack capacity to make medical decisions and awaiting placement essentially clincally change since last encounter, essentially awaiting safe dispo Toxic metabolic encephalopathy, urine toxicology positive for cocaine, fentanyl, and marijuana although the patient adamantly denied using any illicit substance, her parents confirmed that she was actively using substances Per speech therapy note pt has ongoing moderate cognitive linguistic impairment, characterized by significant impairments in short-term memory, executive functions, generative naming; mild impairments in attention and visuospatial skills. Pych reassessed on 08/12 and reports that she still not have capacity to make decisions, healthcare proxy is invoked. I think she needs continous assessment by psych to determine disposition, she's seem to be doing much better today,... She's fully oriented, and judgment seems way better than earlier. Psychiatry evaluation 09/01: Patient continues to lack capacity at this time.??She continues to struggle with executive function, memory, conceptual thinking, and orientation.? She is unable to take in any information regarding her current medical condition, process it in any type of meaningful way, and therefore make any type of informed decisions.? ? E Coli UTI completed course of Abx DVT prophylaxis Lovenox need for inpatient due to cognitive linguistic impairment , waiting safe disposition. Family not able to care for her at home. cm arranging for rehab bed. Attending-Dr. Gomez Quality Stroke Does the patient have a stroke diagnosis?: No VTE Prior VTE?: No VTE Risk Level:: Medical - moderate - high VTE Device Contraindication: Treatment Not Indicated VTE Drug Contraindication: N/A - Med Ordered
[2021-09-04 15:59] VITALS: BP 102/65; PULSE 86; RESP 17; TEMP 36.6; O2SAT 94
[2021-09-04] MEDS: Multivitamin TABLET 1 TAB PO (22:06)
[2021-09-05] VITALS: BP 120/66; PULSE 90; RESP 18; TEMP 36.9; O2SAT 97
[2021-09-05] MEDS: Omeprazole 20 MG CAPSULE.DR PO (05:51)
[2021-09-05] MEDS: Enoxaparin Sodium 40 MG/0.4 ML SYRINGE SUBCUT (05:51)
[2021-09-05 07:23] VITALS: BP 117/77; PULSE 89; RESP 18; TEMP 36.4; O2SAT 94
[2021-09-05] MEDS: polyethylene glycoL 3350 17 GM POWD.PACK PO (07:52)
[2021-09-05] MEDS: Docusate Sodium 100 MG CAPSULE PO (07:52)
[2021-09-05] MEDS: Ferrous Sulfate 300 MG/5 ML LIQUID PO ×2 (07:52→16:31)
[2021-09-05] MEDS: Thiamine HCL 100 MG TABLET PO (07:52)
--- NOTE | 2021-09-05 13:54 | P.PNIM_ITS ---
Subjective Subjective Date of Service: 09/05/21 <BLAIR Sanz - Last Filed: 09/05/21 13:57> 09/05/21 <Tenzin Araya MD - Last Filed: 09/05/21 20:49> Interval History: Seen and examined this morning Follow-up for guardianship/placement No overnight events No specific complaints this morning <BLAIR Sanz - Last Filed: 09/05/21 13:57> Review of Systems Review of Systems: Yes all other systems are reviewed and are negative <BLAIR Sanz - Last Filed: 09/05/21 13:57> Constitutional Constitutional: Denies chills and Reports fever(s) <BLAIR Sanz Last Filed: 09/05/21 13:57> Cardiovascular Cardiovascular: Denies chest pain, Denies palpitations and Denies dyspnea <BLAIR Sanz - Last Filed: 09/05/21 13:57> Respiratory Respiratory: Denies cough and Denies dyspnea <BLAIR Sanz - Last Filed: 09/05/21 13:57> Endocrine Endocrine: Denies palpitations <BLAIR Sanz Last Filed: 09/05/21 13:57> Physical Exam Vital Signs: Vital Signs: Last Vital Signs Temp 97.5 F 09/05/21 07:23 Pulse 89 09/05/21 07:23 Resp 18 09/05/21 07:23 BP 117/77 09/05/21 07:23 Pulse Ox 94 09/05/21 07:23 O2 Del Method 09/05/21 07:23 BMI result Body Mass Index 28.3 <BLAIR Sanz - Last Filed: 09/05/21 13:57> Const: General: cooperative, comfortable, no acute distress, alert and awake <BLAIR Sanz Last Filed: 09/05/21 13:57> Nutritional Appearance: average body habitus <BLAIR Sanz Last Filed: 09/05/21 13:57> Resp: Effort & Inspection: normal respiratory effort and able to speak in complete sentences <BLAIR Sanz Last Filed: 09/05/21 13:57> Auscultation: clear to auscultation bilaterally <BLAIR Sanz - Last Filed: 09/05/21 13:57> Cardio: Rate: regular rate <BLAIR Sanz Last Filed: 09/05/21 13:57> Heart sounds: S1 normal heart sound present and S2 normal heart sound present <BLAIR Sanz - Last Filed: 09/05/21 13:57> GI: Inspection: No distended <BLAIR Sanz Last Filed: 09/05/21 13:57> Palpation (GI): Soft to palpation and nontender <BLAIR Sanz - Last Filed: 09/05/21 13:57> Extrem: Other: Able to move all 4 extremities spontaneously <BLAIR Sanz - Last Filed: 09/05/21 13:57> General: Yes no pedal edema <BLAIR Sanz Last Filed: 09/05/21 13:57> Objective Data Active Medications Acetaminophen (Acetaminophen 325 Mg Tablet) 650 mg PO Q6H PRN PRN Reason: Pain, Mild (Pain Scale 1-3) Benzonatate (Benzonatate 100 Mg Capsule) 200 mg PO TID PRN PRN Reason: cough Last Admin: 07/13/21 16:52 Dose: 200 mg Documented By: ROXANA Docusate Sodium (Docusate Sodium 100 Mg Capsule) 100 mg PO DAILY [facility] Last Admin: 09/05/21 07:52 Dose: 100 mg Documented By: ERICA Enoxaparin Sodium (Enoxaparin Sodium 40 Mg/0.4 Ml Syringe) 40 mg SUBCUT Q24H [facility] Last Admin: 09/05/21 05:51 Dose: 40 mg Documented By: JUAN Ferrous Sulfate (Ferrous Sulfate 300 Mg/5 Ml Liquid) 300 mg PO BIDWM [facility] Last Admin: 09/05/21 07:52 Dose: 300 mg Documented By: ERICA Guaifenesin/Dextromethorphan (Guaifenesin Dm 200/20/10 Ml 10 Ml Syrup) 5 ml PO Q4H PRN PRN Reason: cough Multivitamins/Vitamin C (Multivitamin Tablet) 1 tab PO BEDTIME [facility] Last Admin: 09/04/21 22:06 Dose: 1 tab Documented By: JUAN Omeprazole (Omeprazole 20 Mg Jovani.) 20 mg PO DAILY@0630 [facility] Last Admin: 09/05/21 05:51 Dose: 20 mg Documented By: JUAN Ondansetron HCl (Ondansetron Hcl 4 Mg/2 Ml Vial) 4 mg IVPUSH Q8H PRN PRN Reason: Nausea and Vomiting Polyethylene Glycol (Polyethylene Glycol 3350 17 Gm Powd.Pack) 17 gm PO DAILY [facility] Last Admin: 09/05/21 07:52 Dose: 17 gm Documented By: ERICA Thiamine HCl (Thiamine Hcl 100 Mg Tablet) 100 mg PO DAILY [facility] Last Admin: 09/05/21 07:52 Dose: 100 mg Documented By: ERICA <BLAIR Sanz - Last Filed: 09/05/21 13:57> Labs CBC & Chem 7: : 08/19/21 05:30 08/19/21 05:30 <BLAIR Sanz - Last Filed: 09/05/21 13:57> Assessment and Plan (1) Cognitive impairment: Status: Acute <BLAIR Sanz - Last Filed: 09/05/21 13:57> Assessment and Plan: 46-year-old female with of substance abuse presents to the hospital with confusion found to lack capacity to make medical decisions and awaiting placement essentially clincally change since last encounter, essentially awaiting safe dispo Toxic metabolic encephalopathy, urine toxicology positive for cocaine, fentanyl, and marijuana although the patient adamantly denied using any illicit substance, her parents confirmed that she was actively using substances Per speech therapy note pt has ongoing moderate cognitive linguistic impairment, characterized by significant impairments in short-term memory, executive functions, generative naming; mild impairments in attention and visuospatial skills. Pych reassessed on 08/12 and reports that she still not have capacity to make decisions, healthcare proxy is invoked. I think she needs continous assessment by psych to determine disposition, she's seem to be doing much better today,... She's fully oriented, and judgment seems way better than earlier. Psychiatry evaluation 09/01: Patient continues to lack capacity at this time.? ?She continues to struggle with executive function, memory, conceptual thinking, and orientation.? She is unable to take in any information regarding her current medical condition, process it in any type of meaningful way, and therefore make any type of informed decisions.? ? E Coli UTI completed course of Abx DVT prophylaxis Lovenox need for inpatient due to cognitive linguistic impairment , waiting safe disposition. Family not able to care for her at home. cm arranging for rehab bed. Attending-Dr. Araya <BLAIR Sanz - Last Filed: 09/05/21 13:57> Quality Stroke Does the patient have a stroke diagnosis?: No <BLAIR Sanz - Last Filed: 09/05/21 13:57> VTE Prior VTE?: No <BLAIR Sanz - Last Filed: 09/05/21 13:57> VTE Risk Level:: Medical - moderate - high <BLAIR Sanz - Last Filed: 09/05/21 13:57> VTE Device Contraindication: Treatment Not Indicated <BLAIR Sanz Last Filed: 09/05/21 13:57> VTE Drug Contraindication: N/A - Med Ordered <BLAIR Sanz - Last Filed: 09/05/21 13:57>
[2021-09-05 16:00] VITALS: BP 119/68; PULSE 77; RESP 20; TEMP 36.9; O2SAT 93
[2021-09-05] MEDS: Multivitamin TABLET 1 TAB PO (19:26)
[2021-09-05 23:28] VITALS: BP 127/62; PULSE 73; RESP 17; TEMP 36.1; O2SAT 95
[2021-09-06] MEDS: Enoxaparin Sodium 40 MG/0.4 ML SYRINGE SUBCUT (05:27)
[2021-09-06] MEDS: Omeprazole 20 MG CAPSULE.DR PO (05:27)
[2021-09-06 07:14] LABS: Hematocrit 38.9 % (37.0-47.0); Hemoglobin 12.2 g/dl (12.0-16.0); Mean Corpuscular HGB Conc 31.4 g/dl (31.0-35.0); Mean Corpuscular Hemoglobin 26.3 pg (27.0-33.0); Mean Corpuscular Volume 83.8 fL (80.0-98.0); Mean Platelet Volume 10.3 fL (9.4-12.3); Platelet Count 274 X10*3/uL (160-400); Red Blood Count 4.64 X10*6/uL (4.20-5.50); Red Cell Distribution Width 17.7 % (11.0-16.0); White Blood Count 8.5 X10*3/uL (4.8-10.8)
[2021-09-06 07:35] LABS: Anion Gap 12 (12-20); Blood Urea Nitrogen 15 mg/dL (9-16); Calcium 9.4 mg/dL (8.4-10.2); Carbon Dioxide 28 mmol/L (22-29); Chloride 104 mmol/L (96-108); Creatinine Clr Calc Pharmacy 81.4; Estimated Glomerular Filt Rate > 60; Glucose Random 86 mg/dL (60-115); Potassium 5.4 mmol/L (3.3-5.1); Sodium 139 mmol/L (135-145)
[2021-09-06 07:50] VITALS: BP 119/66; PULSE 73; RESP 18; TEMP 36.6; O2SAT 95
[2021-09-06 08:00] VITALS: BP 119/66; PULSE 74; RESP 18; O2SAT 95
[2021-09-06] MEDS: Thiamine HCL 100 MG TABLET PO (08:41)
[2021-09-06] MEDS: Ferrous Sulfate 300 MG/5 ML LIQUID PO (08:41)
[2021-09-06] MEDS: polyethylene glycoL 3350 17 GM POWD.PACK PO (08:41)
[2021-09-06] MEDS: Docusate Sodium 100 MG CAPSULE PO (08:41)
[2021-09-06 15:13] VITALS: BP 115/72; PULSE 81; RESP 16; TEMP 36.8; O2SAT 95
--- NOTE | 2021-09-06 15:57 | HO.PM.IMPN ---
Subjective Subjective Date of Service: 09/06/21 Interval History: Seen examined this morning Follow-up for placement No overnight events Requesting to have iron supplement decreased due to bad taste Review of Systems Review of Systems: Yes all other systems are reviewed and are negative Constitutional Constitutional: Denies chills and Denies fever(s) Cardiovascular Cardiovascular: Denies chest pain, Denies palpitations and Denies dyspnea Respiratory Respiratory: Denies cough and Denies dyspnea Gastrointestinal Gastrointestinal: Denies abdominal pain Endocrine Endocrine: Denies palpitations Physical Exam Vital Signs: Vital Signs: Last Vital Signs Temp 98.2 F 09/06/21 15:13 Pulse 81 09/06/21 15:13 Resp 16 09/06/21 15:13 BP 115/72 09/06/21 15:13 Pulse Ox 95 09/06/21 15:13 O2 Del Method 09/06/21 15:13 BMI result Body Mass Index 28.3 Const: General: cooperative, comfortable, no acute distress, alert and awake Nutritional Appearance: average body habitus Eyes: Pupils: Equal, round and reactive pupils present EOM: EOMs intact bilaterally Resp: Effort & Inspection: normal respiratory effort and able to speak in complete sentences Auscultation: clear to auscultation bilaterally Cardio: Rate: regular rate Heart sounds: S1 normal heart sound present and S2 normal heart sound present GI: Inspection: No distended Palpation (GI): Soft to palpation and nontender Neuro: Cranial nerves: Yes Equal, round and reactive pupils present Extrem: Other: Able to move all 4 extremities spontaneously General: Yes no pedal edema Objective Data Active Medications Acetaminophen (Acetaminophen 325 Mg Tablet) 650 mg PO Q6H PRN PRN Reason: Pain, Mild (Pain Scale 1-3) Benzonatate (Benzonatate 100 Mg Capsule) 200 mg PO TID PRN PRN Reason: cough Last Admin: 07/13/21 16:52 Dose: 200 mg Documented By: ROXANA Docusate Sodium (Docusate Sodium 100 Mg Capsule) 100 mg PO DAILY [facility] Last Admin: 09/06/21 08:41 Dose: 100 mg Documented By: AZEEM Enoxaparin Sodium (Enoxaparin Sodium 40 Mg/0.4 Ml Syringe) 40 mg SUBCUT Q24H [facility] Last Admin: 09/06/21 05:27 Dose: 40 mg Documented By: ALAN Ferrous Sulfate (Ferrous Sulfate 300 Mg/5 Ml Liquid) 300 mg PO DAILY [facility] Guaifenesin/Dextromethorphan (Guaifenesin Dm 200/20/10 Ml 10 Ml Syrup) 5 ml PO Q4H PRN PRN Reason: cough Multivitamins/Vitamin C (Multivitamin Tablet) 1 tab PO BEDTIME [facility] Last Admin: 09/05/21 19:26 Dose: 1 tab Documented By: ALAN Omeprazole (Omeprazole 20 Mg Jovani.) 20 mg PO DAILY@0630 [facility] Last Admin: 09/06/21 05:27 Dose: 20 mg Documented By: ALAN Ondansetron HCl (Ondansetron Hcl 4 Mg/2 Ml Vial) 4 mg IVPUSH Q8H PRN PRN Reason: Nausea and Vomiting Polyethylene Glycol (Polyethylene Glycol 3350 17 Gm Powd.Pack) 17 gm PO DAILY [facility] Last Admin: 09/06/21 08:41 Dose: 17 gm Documented By: AZEEM Thiamine HCl (Thiamine Hcl 100 Mg Tablet) 100 mg PO DAILY [facility] Last Admin: 09/06/21 08:41 Dose: 100 mg Documented By: AZEEM Labs CBC & Chem 7: 09/06/21 06:05 09/06/21 06:05 Labs: Laboratory Results - last 24 hr 09/06/21 09/06/21 06:05 06:05 MCV 83.8 MCH 26.3 L MCHC 31.4 RDW 17.7 H Plt Count 274 MPV 10.3 Absolute Nucleated RBC 0.000 Nucleated RBC % (auto) 0.0 Anion Gap 12 Estim Creat Clear Calc 81.4 Estimated GFR > 60 Random Glucose 86 Calcium 9.4 Assessment and Plan (1) Hyperkalemia: Status: Acute Plan 46-year-old female with of substance abuse presents to the hospital with confusion found to lack capacity to make medical decisions and awaiting placement essentially clincally change since last encounter, essentially awaiting safe dispo Hyperkalemia. Mild, K 5.4 will repeat BMP in am Iron deficiency anemia H/H improved, wnl will decrease iron to daily from twice daily Toxic metabolic encephalopathy, urine toxicology positive for cocaine, fentanyl, and marijuana although the patient adamantly denied using any illicit substance, her parents confirmed that she was actively using substances Per speech therapy note pt has ongoing moderate cognitive linguistic impairment, characterized by significant impairments in short-term memory, executive functions, generative naming; mild impairments in attention and visuospatial skills. Nereyda reassessed on 08/12 and reports that she still not have capacity to make decisions, healthcare proxy is invoked. I think she needs continous assessment by psych to determine disposition, she's seem to be doing much better today,... She's fully oriented, and judgment seems way better than earlier. Psychiatry evaluation 09/01: Patient continues to lack capacity at this time.??She continues to struggle with executive function, memory, conceptual thinking, and orientation.? She is unable to take in any information regarding her current medical condition, process it in any type of meaningful way, and therefore make any type of informed decisions.? ? E Coli UTI completed course of Abx DVT prophylaxis Lovenox need for inpatient due to cognitive linguistic impairment , waiting safe disposition. Family not able to care for her at home. cm arranging for rehab bed. Attending-Dr. Payne Quality Stroke Does the patient have a stroke diagnosis?: No VTE Prior VTE?: No VTE Risk Level:: Medical - moderate - high VTE Device Contraindication: Treatment Not Indicated VTE Drug Contraindication: N/A - Med Ordered
[2021-09-06] MEDS: Multivitamin TABLET 1 TAB PO (19:52)
[2021-09-07] VITALS: BP 97/56; PULSE 84; RESP 16; TEMP 36.6; O2SAT 95
[2021-09-07] MEDS: Enoxaparin Sodium 40 MG/0.4 ML SYRINGE SUBCUT (06:07)
[2021-09-07] MEDS: Omeprazole 20 MG CAPSULE.DR PO (06:07)
[2021-09-07 07:23] LABS: Anion Gap 15 (12-20); Blood Urea Nitrogen 16 mg/dL (9-16); Calcium 9.5 mg/dL (8.4-10.2); Carbon Dioxide 26 mmol/L (22-29); Chloride 103 mmol/L (96-108); Creatinine Clr Calc Pharmacy 76.6; Estimated Glomerular Filt Rate 59; Glucose Random 88 mg/dL (60-115); Potassium 5.5 mmol/L (3.3-5.1); Sodium 138 mmol/L (135-145)
[2021-09-07 07:42] VITALS: BP 121/76; PULSE 89; RESP 18; TEMP 36.6; O2SAT 94
[2021-09-07] MEDS: Docusate Sodium 100 MG CAPSULE PO (08:32)
[2021-09-07] MEDS: Thiamine HCL 100 MG TABLET PO (08:32)
[2021-09-07] MEDS: Sodium Zirconium Cyclosilicate 10 GM POWD.PACK PO (08:33)
[2021-09-07] MEDS: Ferrous Sulfate 300 MG/5 ML LIQUID PO (08:33)
[2021-09-07 15:14] VITALS: BP 126/60; PULSE 79; RESP 18; TEMP 36.9; O2SAT 96
[2021-09-07] MEDS: Multivitamin TABLET 1 TAB PO (19:26)
[2021-09-07 23:52] VITALS: BP 101/67; PULSE 80; RESP 16; TEMP 36.6; O2SAT 94
[2021-09-08] MEDS: Omeprazole 20 MG CAPSULE.DR PO (05:57)
[2021-09-08] MEDS: Enoxaparin Sodium 40 MG/0.4 ML SYRINGE SUBCUT (05:57)
[2021-09-08 06:54] LABS: Anion Gap 12 (12-20); Blood Urea Nitrogen 15 mg/dL (9-16); Calcium 9.2 mg/dL (8.4-10.2); Carbon Dioxide 27 mmol/L (22-29); Chloride 104 mmol/L (96-108); Creatinine Clr Calc Pharmacy 80.6; Estimated Glomerular Filt Rate > 60; Glucose Random 95 mg/dL (60-115); Potassium 4.9 mmol/L (3.3-5.1); Sodium 138 mmol/L (135-145)
[2021-09-08] MEDS: polyethylene glycoL 3350 17 GM POWD.PACK PO (07:54)
[2021-09-08] MEDS: Thiamine HCL 100 MG TABLET PO (07:54)
[2021-09-08] MEDS: Docusate Sodium 100 MG CAPSULE PO (07:54)
[2021-09-08] MEDS: Ferrous Sulfate 300 MG/5 ML LIQUID PO (07:54)
[2021-09-08 08:00] VITALS: BP 109/71; PULSE 80; RESP 18; TEMP 36.1; O2SAT 97
--- NOTE | 2021-09-08 12:08 | P.PNIM_ITS ---
Subjective Subjective Date of Service: 09/08/21 Review of Systems Follow up awaiting placement NO overnight complaints sitting in bed Physical Exam Vital Signs: Vital Signs: Last Vital Signs Temp 97 F 09/08/21 08:00 Pulse 80 09/08/21 08:00 Resp 18 09/08/21 08:00 BP 109/71 09/08/21 08:00 Pulse Ox 97 09/08/21 08:00 O2 Del Method 09/08/21 08:00 BMI result Body Mass Index 28.3 Appearing in no acute distress lung sounds are clear to auscultation heart regular rate rhythm positive bowel sounds neuro patient is alert x3, no focal deficits Objective Data Active Medications Acetaminophen (Acetaminophen 325 Mg Tablet) 650 mg PO Q6H PRN PRN Reason: Pain, Mild (Pain Scale 1-3) Benzonatate (Benzonatate 100 Mg Capsule) 200 mg PO TID PRN PRN Reason: cough Last Admin: 07/13/21 16:52 Dose: 200 mg Documented By: ROXANA Docusate Sodium (Docusate Sodium 100 Mg Capsule) 100 mg PO DAILY [facility] Last Admin: 09/08/21 07:54 Dose: 100 mg Documented By: IVANNA Enoxaparin Sodium (Enoxaparin Sodium 40 Mg/0.4 Ml Syringe) 40 mg SUBCUT Q24H [facility] Last Admin: 09/08/21 05:57 Dose: 40 mg Documented By: JANENE Ferrous Sulfate (Ferrous Sulfate 300 Mg/5 Ml Liquid) 300 mg PO DAILY [facility] Last Admin: 09/08/21 07:54 Dose: 300 mg Documented By: IVANNA Guaifenesin/Dextromethorphan (Guaifenesin Dm 200/20/10 Ml 10 Ml Syrup) 5 ml PO Q4H PRN PRN Reason: cough Multivitamins/Vitamin C (Multivitamin Tablet) 1 tab PO BEDTIME [facility] Last Admin: 09/07/21 19:26 Dose: 1 tab Documented By: JANENE Omeprazole (Omeprazole 20 Mg Capsule.) 20 mg PO DAILY@0630 [facility] Last Admin: 09/08/21 05:57 Dose: 20 mg Documented By: JANENE Ondansetron HCl (Ondansetron Hcl 4 Mg/2 Ml Vial) 4 mg IVPUSH Q8H PRN PRN Reason: Nausea and Vomiting Polyethylene Glycol (Polyethylene Glycol 3350 17 Gm Powd.Pack) 17 gm PO DAILY [facility] Last Admin: 09/08/21 07:54 Dose: 17 gm Documented By: IVANNA Thiamine HCl (Thiamine Hcl 100 Mg Tablet) 100 mg PO DAILY [facility] Last Admin: 09/08/21 07:54 Dose: 100 mg Documented By: IVANNA Labs CBC & Chem 7: 09/06/21 06:05 09/08/21 06:19 Labs: Laboratory Results - last 24 hr 09/08/21 06:19 Anion Gap 12 Estim Creat Clear Calc 80.6 Estimated GFR > 60 Random Glucose 95 Calcium 9.2 Assessment and Plan (1) Hyperkalemia: Status: Acute Plan 46-year-old female with of substance abuse presents to the hospital with confusion found to lack capacity to make medical decisions and awaiting placement essentially clinically change since last encounter, essentially awaiting safe dispo Per speech therapy note pt has ongoing moderate cognitive linguistic impairment, characterized by significant impairments in short-term memory, executive functi ons, generative naming; mild impairments in attention and visuospatial skills. Pych reassessed on 08/12 and reports that she still not have capacity to make decisions, healthcare proxy is invoked. I think she needs continous assessment by psych to determine disposition, she's seem to be doing much better today,... She's fully oriented, and judgment seems way better than earlier. Toxic metabolic encephalopathy secondary to substance abuse Psychiatry re-evaluation concludes Patient continues to lack capacity at this time.?? E Coli UTI completed course of Abx Hyperkalemia. Resolved Mild, K 5.4 will repeat BMP in am Iron deficiency anemia H/H improved, wnl daily iron sup DVT prophylaxis Lovenox Attending-Dr. Payne need for inpatient due to cognitive linguistic impairment , waiting safe disposition. Family not able to care for her at home. Awaiting safe placement Quality Stroke Does the patient have a stroke diagnosis?: No VTE Prior VTE?: No VTE Risk Level:: Medical - moderate - high VTE Device Contraindication: Treatment Not Indicated VTE Drug Contraindication: N/A - Med Ordered
[2021-09-08 15:44] VITALS: BP 108/69; PULSE 83; RESP 14; TEMP 36.4; O2SAT 95
[2021-09-08] MEDS: Multivitamin TABLET 1 TAB PO (19:52)
[2021-09-09] VITALS: BP 101/61; PULSE 80; RESP 18; TEMP 36.4; O2SAT 98
[2021-09-09] MEDS: Omeprazole 20 MG CAPSULE.DR PO (05:24)
[2021-09-09] MEDS: Enoxaparin Sodium 40 MG/0.4 ML SYRINGE SUBCUT (05:24)
[2021-09-09 07:52] VITALS: BP 119/77; PULSE 79; RESP 18; TEMP 36.9; O2SAT 96
--- NOTE | 2021-09-09 07:57 | P.PNIM_ITS ---
Subjective Subjective Date of Service: 09/09/21 Review of Systems Follow up awaiting placement NO overnight complaints sitting in bed Physical Exam Vital Signs: Vital Signs: Last Vital Signs Temp 98.4 F 09/09/21 07:52 Pulse 79 09/09/21 07:52 Resp 18 09/09/21 07:52 BP 119/77 09/09/21 07:52 Pulse Ox 96 09/09/21 07:52 O2 Del Method 09/09/21 07:52 BMI result Body Mass Index 28.3 Appearing in no acute distress lung sounds are clear to auscultation heart regular rate rhythm positive bowel sounds neuro patient is alert Objective Data Active Medications Acetaminophen (Acetaminophen 325 Mg Tablet) 650 mg PO Q6H PRN PRN Reason: Pain, Mild (Pain Scale 1-3) Benzonatate (Benzonatate 100 Mg Capsule) 200 mg PO TID PRN PRN Reason: cough Last Admin: 07/13/21 16:52 Dose: 200 mg Documented By: ROXANA Docusate Sodium (Docusate Sodium 100 Mg Capsule) 100 mg PO DAILY [facility] Last Admin: 09/08/21 07:54 Dose: 100 mg Documented By: IVANNA Enoxaparin Sodium (Enoxaparin Sodium 40 Mg/0.4 Ml Syringe) 40 mg SUBCUT Q24H [facility] Last Admin: 09/09/21 05:24 Dose: 40 mg Documented By: IRIS Ferrous Sulfate (Ferrous Sulfate 300 Mg/5 Ml Liquid) 300 mg PO DAILY [facility] Last Admin: 09/08/21 07:54 Dose: 300 mg Documented By: IVANNA Guaifenesin/Dextromethorphan (Guaifenesin Dm 200/20/10 Ml 10 Ml Syrup) 5 ml PO Q4H PRN PRN Reason: cough Multivitamins/Vitamin C (Multivitamin Tablet) 1 tab PO BEDTIME [facility] Last Admin: 09/08/21 19:52 Dose: 1 tab Documented By: IRIS Omeprazole (Omeprazole 20 Mg Capsule.) 20 mg PO DAILY@0630 [facility] Last Admin: 09/09/21 05:24 Dose: 20 mg Documented By: IRIS Ondansetron HCl (Ondansetron Hcl 4 Mg/2 Ml Vial) 4 mg IVPUSH Q8H PRN PRN Reason: Nausea and Vomiting Polyethylene Glycol (Polyethylene Glycol 3350 17 Gm Powd.Pack) 17 gm PO DAILY [facility] Last Admin: 09/08/21 07:54 Dose: 17 gm Documented By: IVANNA Thiamine HCl (Thiamine Hcl 100 Mg Tablet) 100 mg PO DAILY [facility] Last Admin: 09/08/21 07:54 Dose: 100 mg Documented By: IVANNA Labs CBC & Chem 7: 09/06/21 06:05 09/08/21 06:19 Assessment and Plan (1) Hyperkalemia: Status: Acute Plan 46-year-old female with of substance abuse presents to the hospital with confusion found to lack capacity to make medical decisions and awaiting placement essentially clinically change since last encounter, essentially awaiting safe dispo Per speech therapy note pt has ongoing moderate cognitive linguistic impairment, characterized by significant impairments in short-term memory, executive functions, generative naming; mild impairments in attention and visuospatial skills. Pych reassessed on 08/12 and reports that she still not have capacity to make decisions, healthcare proxy is invoked. Toxic metabolic encephalopathy secondary to substance abuse Psychiatry re-evaluation concludes Patient continues to lack capacity at this time.?? E Coli UTI completed course of Abx Hyperkalemia. Resolved Mild, K 5.4 will repeat BMP in am Iron deficiency anemia H/H improved, wnl daily iron sup DVT prophylaxis Lovenox Attending-Dr. Gomez need for inpatient due to cognitive linguistic impairment , waiting safe d isposition. Family not able to care for her at home. Awaiting safe placement Quality Stroke Does the patient have a stroke diagnosis?: No VTE Prior VTE?: No VTE Risk Level:: Medical - moderate - high VTE Device Contraindication: Treatment Not Indicated VTE Drug Contraindication: N/A - Med Ordered
[2021-09-09] MEDS: Ferrous Sulfate 300 MG/5 ML LIQUID PO (09:31)
[2021-09-09] MEDS: Thiamine HCL 100 MG TABLET PO (09:31)
[2021-09-09] MEDS: polyethylene glycoL 3350 17 GM POWD.PACK PO (09:31)
[2021-09-09] MEDS: Docusate Sodium 100 MG CAPSULE PO (09:31)
[2021-09-09 16:00] VITALS: BP 112/68; PULSE 84; RESP 18; TEMP 36.7; O2SAT 96
[2021-09-09] MEDS: Multivitamin TABLET 1 TAB PO (19:50)
[2021-09-09 23:28] VITALS: BP 96/56; PULSE 73; RESP 14; TEMP 36.6; O2SAT 94
[2021-09-10] MEDS: Omeprazole 20 MG CAPSULE.DR PO (05:58)
[2021-09-10] MEDS: Enoxaparin Sodium 40 MG/0.4 ML SYRINGE SUBCUT (05:58)
[2021-09-10 07:46] VITALS: BP 136/72; PULSE 78; RESP 18; TEMP 36.9; O2SAT 97
[2021-09-10] MEDS: polyethylene glycoL 3350 17 GM POWD.PACK PO (09:10)
[2021-09-10] MEDS: Thiamine HCL 100 MG TABLET PO (09:10)
[2021-09-10] MEDS: Ferrous Sulfate 300 MG/5 ML LIQUID PO (09:10)
[2021-09-10] MEDS: Docusate Sodium 100 MG CAPSULE PO (09:10)
--- NOTE | 2021-09-10 10:53 | HO.PM.IMPN ---
Subjective Subjective Date of Service: 09/10/21 Interval History: Follow-up on encephalopathy ?interval history: no clinical change Review of Systems Poor memory, cognition Physical Exam Vital Signs: Vital Signs: Last Vital Signs Temp 98.4 F 09/10/21 07:46 Pulse 78 09/10/21 07:46 Resp 18 09/10/21 07:46 BP 136/72 09/10/21 07:46 Pulse Ox 97 09/10/21 07:46 O2 Del Method 09/10/21 07:46 BMI result Body Mass Index 28.3 Const: Other: General: AO X3 Resp: CTA bilateral CVS: S1,S2,RRR GI: +BS, NT, no distention Skin: No rash Neuro: motor grossly intact Psych: appropriate affect, insight is questionable Objective Data Active Medications Acetaminophen (Acetaminophen 325 Mg Tablet) 650 mg PO Q6H PRN PRN Reason: Pain, Mild (Pain Scale 1-3) Benzonatate (Benzonatate 100 Mg Capsule) 200 mg PO TID PRN PRN Reason: cough Last Admin: 07/13/21 16:52 Dose: 200 mg Documented By: ROXANA Docusate Sodium (Docusate Sodium 100 Mg Capsule) 100 mg PO DAILY [facility] Last Admin: 09/10/21 09:10 Dose: 100 mg Documented By: AZEEM Enoxaparin Sodium (Enoxaparin Sodium 40 Mg/0.4 Ml Syringe) 40 mg SUBCUT Q24H [facility] Last Admin: 09/10/21 05:58 Dose: 40 mg Documented By: JUAN Ferrous Sulfate (Ferrous Sulfate 300 Mg/5 Ml Liquid) 300 mg PO DAILY [facility] Last Admin: 09/10/21 09:10 Dose: 300 mg Documented By: AZEEM Guaifenesin/Dextromethorphan (Guaifenesin Dm 200/20/10 Ml 10 Ml Syrup) 5 ml PO Q4H PRN PRN Reason: cough Multivitamins/Vitamin C (Multivitamin Tablet) 1 tab PO BEDTIME [facility] Last Admin: 09/09/21 19:50 Dose: 1 tab Documented By: JUAN Omeprazole (Omeprazole 20 Mg Capsule.) 20 mg PO DAILY@0630 [facility] Last Admin: 09/10/21 05:58 Dose: 20 mg Documented By: JUAN Ondansetron HCl (Ondansetron Hcl 4 Mg/2 Ml Vial) 4 mg IVPUSH Q8H PRN PRN Reason: Nausea and Vomiting Polyethylene Glycol (Polyethylene Glycol 3350 17 Gm Powd.Pack) 17 gm PO DAILY [facility] Last Admin: 09/10/21 09:10 Dose: 17 gm Documented By: AZEEM Thiamine HCl (Thiamine Hcl 100 Mg Tablet) 100 mg PO DAILY [facility] Last Admin: 09/10/21 09:10 Dose: 100 mg Documented By: AZEEM Labs CBC & Chem 7: 09/06/21 06:05 09/08/21 06:19 Assessment and Plan (1) Hyperkalemia: Status: Acute Plan 46-year-old female with of substance abuse presents to the hospital with confusion found to lack capacity to make medical decisions and awaiting placement essentially clinically change since last encounter, essentially awaiting safe dispo Per speech therapy note pt has ongoing moderate cognitive linguistic impairment, characterized by significant impairments in short-term memory, executive functions, generative naming; mild impairments in attention and visuospatial skills. Pych reassessed on 08/12 and reports that she still not have capacity to make decisions, healthcare proxy is invoked. Toxic metabolic encephalopathy secondary to substance abuse Psychiatry re-evaluation concludes Patient continues to lack clinical decision capacity at this time.?? E Coli UTI completed course of Abx Hyperkalemia. Resolved Mild, K 5.4 will repeat BMP in am Iron deficiency anemia H/H improved, wnl daily iron sup DVT prophylaxis Lovenox, perhaps can be discontinued if ambulatory need for inpatient due to cognitive linguistic impairment , waiting safe disposition. Family not able to care for her at home. Awaiting safe placement Quality Stroke Does the patient have a stroke diagnosis?: No VTE Prior VTE?: No VTE Risk Level:: Medical - moderate - high VTE Device Contraindication: Treatment Not Indicated VTE Drug Contraindication: N/A - Med Ordered
--- NOTE | 2021-09-10 14:00 | MHC.CM.PN ---
EMR REVIEWED, PT REMAINS MEDICALLY STABLE, CM ATTEMPTED TO CONTACT ESDRAS AT [facility] TO DISCUSS STATUS OF PT'S ADULT FOSTER CARE ASSESSMENT, UNFORTUNATELY ESDRAS WHO PREVIOUS CM HAD BEEN WORKING THERE HAS LEFT [facility] AND RAVELER TRANSFERRED ME TO ANOTHER VOICEMAIL, MESSAGE LEFT W/CM CONTACT INFO. CM ALSO ATTEMPTED TO CONTACT WHITNEY JOSEPH [phone] FROM [facility] TO DISCUSS CASE HOWEVER NO ANSWER, MESSAGE LEFT W/CM CONTACT INFO. SNF REFERRAL TO BE UPDATED, CM WILL CONT TO FOLLOW D/C NEEDS.
[2021-09-10 15:27] VITALS: BP 118/72; PULSE 79; RESP 16; TEMP 36.9; O2SAT 94
[2021-09-10] MEDS: Multivitamin TABLET 1 TAB PO (19:47)
[2021-09-10 23:44] VITALS: BP 108/62; PULSE 82; RESP 16; TEMP 36.7; O2SAT 93
[2021-09-11] MEDS: Omeprazole 20 MG CAPSULE.DR PO (05:46)
[2021-09-11] MEDS: Enoxaparin Sodium 40 MG/0.4 ML SYRINGE SUBCUT (05:49)
[2021-09-11 07:21] VITALS: BP 129/78; PULSE 80; RESP 16; TEMP 36.6; O2SAT 95
[2021-09-11] MEDS: polyethylene glycoL 3350 17 GM POWD.PACK PO (08:12)
[2021-09-11] MEDS: Ferrous Sulfate 300 MG/5 ML LIQUID PO (08:12)
[2021-09-11] MEDS: Docusate Sodium 100 MG CAPSULE PO (08:12)
[2021-09-11] MEDS: Thiamine HCL 100 MG TABLET PO (08:12)
--- NOTE | 2021-09-11 09:18 | HO.PM.IMPN ---
Subjective Subjective Date of Service: 09/11/21 Interval History: Seen and examined, vital reviewed.. Has no new complaint other than when am I been discharged Review of Systems no fever no new confusion Physical Exam Vital Signs: Vital Signs: Last Vital Signs Temp 97.8 F 09/11/21 07:21 Pulse 80 09/11/21 07:21 Resp 16 09/11/21 07:21 BP 129/78 09/11/21 07:21 Pulse Ox 95 09/11/21 07:21 O2 Del Method 09/11/21 07:21 BMI result Body Mass Index 28.3 Const: Other: General: AO X3 Resp: CTA bilateral CVS: S1,S2,RRR GI: +BS, NT, no distention Skin: No rash Neuro: motor grossly intact Psych: appropriate affect, insight is questionable Objective Data Active Medications Acetaminophen (Acetaminophen 325 Mg Tablet) 650 mg PO Q6H PRN PRN Reason: Pain, Mild (Pain Scale 1-3) Benzonatate (Benzonatate 100 Mg Capsule) 200 mg PO TID PRN PRN Reason: cough Last Admin: 07/13/21 16:52 Dose: 200 mg Documented By: ROXANA Docusate Sodium (Docusate Sodium 100 Mg Capsule) 100 mg PO DAILY [facility] Last Admin: 09/11/21 08:12 Dose: 100 mg Documented By: ARTURO Enoxaparin Sodium (Enoxaparin Sodium 40 Mg/0.4 Ml Syringe) 40 mg SUBCUT Q24H [facility] Last Admin: 09/11/21 05:49 Dose: 40 mg Documented By: BALJEET Ferrous Sulfate (Ferrous Sulfate 300 Mg/5 Ml Liquid) 300 mg PO DAILY [facility] Last Admin: 09/11/21 08:12 Dose: 300 mg Documented By: ARTURO Guaifenesin/Dextromethorphan (Guaifenesin Dm 200/20/10 Ml 10 Ml Syrup) 5 ml PO Q4H PRN PRN Reason: cough Multivitamins/Vitamin C (Multivitamin Tablet) 1 tab PO BEDTIME [facility] Last Admin: 09/10/21 19:47 Dose: 1 tab Documented By: BALJEET Omeprazole (Omeprazole 20 Mg Capsule.) 20 mg PO DAILY@0630 [facility] Last Admin: 09/11/21 05:46 Dose: 20 mg Documented By: BALJEET Ondansetron HCl (Ondansetron Hcl 4 Mg/2 Ml Vial) 4 mg IVPUSH Q8H PRN PRN Reason: Nausea and Vomiting Polyethylene Glycol (Polyethylene Glycol 3350 17 Gm Powd.Pack) 17 gm PO DAILY [facility] Last Admin: 09/11/21 08:12 Dose: 17 gm Documented By: ARTURO Thiamine HCl (Thiamine Hcl 100 Mg Tablet) 100 mg PO DAILY [facility] Last Admin: 09/11/21 08:12 Dose: 100 mg Documented By: ARTURO Labs CBC & Chem 7: 09/06/21 06:05 09/08/21 06:19 Assessment and Plan (1) Hyperkalemia: Status: Acute Plan 46-year-old female with of substance abuse presents to the hospital with confusion found to lack capacity to make medical decisions and awaiting placement essentially clinically change since last encounter, essentially awaiting safe dispo Per speech therapy note pt has ongoing moderate cognitive linguistic impairment, characterized by significant impairments in short-term memory, executive functions, generative naming; mild impairments in attention and visuospatial skills. Pych reassessed on 08/12 and reports that she still not have capacity to make decisions, healthcare proxy is invoked. Toxic metabolic encephalopathy secondary to substance abuse Psychiatry re-evaluation concludes Patient continues to lack clinical decision capacity at this time.?? E Coli UTI completed course of Abx Hyperkalemia. Resolved Mild, K 5.4 will repeat BMP in am Iron deficiency anemia H/H improved, wnl daily iron sup DVT prophylaxis Lovenox, perhaps can be discontinued if ambulatory need for inpatient due to cognitive linguistic impairment , waiting safe disposition. Family not able to care for her at home. Awaiting safe placement Quality Stroke Does the patient have a stroke diagnosis?: No VTE Prior VTE?: No VTE Risk Level:: Medical - moderate - high VTE Device Contraindication: Treatment Not Indicated VTE Drug Contraindication: N/A - Med Ordered
[2021-09-11 15:35] VITALS: BP 120/78; PULSE 81; RESP 20; TEMP 36.2; O2SAT 96
[2021-09-11 19:30] VITALS: BP 106/73; PULSE 85; RESP 18; TEMP 36.5; O2SAT 98
[2021-09-11] MEDS: Multivitamin TABLET 1 TAB PO (20:45)
[2021-09-11 23:31] VITALS: BP 105/63; PULSE 81; RESP 18; TEMP 36.4; O2SAT 95
[2021-09-12] MEDS: Omeprazole 20 MG CAPSULE.DR PO (05:44)
[2021-09-12] MEDS: Enoxaparin Sodium 40 MG/0.4 ML SYRINGE SUBCUT (05:44)
[2021-09-12 07:59] VITALS: BP 112/75; PULSE 76; RESP 16; TEMP 36.3; O2SAT 97
[2021-09-12] MEDS: polyethylene glycoL 3350 17 GM POWD.PACK PO (08:29)
[2021-09-12] MEDS: Docusate Sodium 100 MG CAPSULE PO (08:30)
[2021-09-12] MEDS: Ferrous Sulfate 300 MG/5 ML LIQUID PO (08:30)
[2021-09-12] MEDS: Thiamine HCL 100 MG TABLET PO (08:30)
--- NOTE | 2021-09-12 08:55 | HO.PM.IMPN ---
Subjective Subjective Date of Service: 09/12/21 Interval History: Seen and examined, vital reviewed.. no change Review of Systems no fever no new confusion Physical Exam Vital Signs: Vital Signs: Last Vital Signs Temp 97.4 F 09/12/21 07:59 Pulse 76 09/12/21 07:59 Resp 16 09/12/21 07:59 BP 112/75 09/12/21 07:59 Pulse Ox 97 09/12/21 07:59 O2 Del Method 09/12/21 07:59 BMI result Body Mass Index 28.3 Const: Other: General: AO X3 Resp: CTA bilateral CVS: S1,S2,RRR GI: +BS, NT, no distention Skin: No rash Neuro: motor grossly intact Psych: appropriate affect, insight is questionable Objective Data Active Medications Acetaminophen (Acetaminophen 325 Mg Tablet) 650 mg PO Q6H PRN PRN Reason: Pain, Mild (Pain Scale 1-3) Benzonatate (Benzonatate 100 Mg Capsule) 200 mg PO TID PRN PRN Reason: cough Last Admin: 07/13/21 16:52 Dose: 200 mg Documented By: ROXANA Docusate Sodium (Docusate Sodium 100 Mg Capsule) 100 mg PO DAILY [facility] Last Admin: 09/12/21 08:30 Dose: 100 mg Documented By: ARTURO Enoxaparin Sodium (Enoxaparin Sodium 40 Mg/0.4 Ml Syringe) 40 mg SUBCUT Q24H [facility] Last Admin: 09/12/21 05:44 Dose: 40 mg Documented By: IRIS Ferrous Sulfate (Ferrous Sulfate 300 Mg/5 Ml Liquid) 300 mg PO DAILY [facility] Last Admin: 09/12/21 08:30 Dose: 300 mg Documented By: ARTURO Guaifenesin/Dextromethorphan (Guaifenesin Dm 200/20/10 Ml 10 Ml Syrup) 5 ml PO Q4H PRN PRN Reason: cough Multivitamins/Vitamin C (Multivitamin Tablet) 1 tab PO BEDTIME [facility] Last Admin: 09/11/21 20:45 Dose: 1 tab Documented By: IRIS Omeprazole (Omeprazole 20 Mg Capsule.) 20 mg PO DAILY@0630 [facility] Last Admin: 09/12/21 05:44 Dose: 20 mg Documented By: IRIS Ondansetron HCl (Ondansetron Hcl 4 Mg/2 Ml Vial) 4 mg IVPUSH Q8H PRN PRN Reason: Nausea and Vomiting Polyethylene Glycol (Polyethylene Glycol 3350 17 Gm Powd.Pack) 17 gm PO DAILY [facility] Last Admin: 09/12/21 08:29 Dose: 17 gm Documented By: ARTURO Thiamine HCl (Thiamine Hcl 100 Mg Tablet) 100 mg PO DAILY [facility] Last Admin: 09/12/21 08:30 Dose: 100 mg Documented By: ARTURO Labs CBC & Chem 7: 09/06/21 06:05 09/08/21 06:19 Assessment and Plan (1) Hyperkalemia: Status: Acute Plan 46-year-old female with of substance abuse presents to the hospital with confusion found to lack capacity to make medical decisions and awaiting placement essentially clinically change since last encounter, essentially awaiting safe dispo Per speech therapy note pt has ongoing moderate cognitive linguistic impairment, characterized by significant impairments in short-term memory, executive functions, generative naming; mild impairments in attention and visuospatial skills. Pych reassessed on 08/12 and reports that she still not have capacity to make decisions, healthcare proxy is invoked. Toxic metabolic encephalopathy secondary to substance abuse Psychiatry re-evaluation concludes Patient continues to lack clinical decision capacity at this time.?? E Coli UTI completed course of Abx Hyperkalemia. Resolved Mild, K 5.4 will repeat BMP in am Iron deficiency anemia H/H improved, wnl daily iron sup DVT prophylaxis Lovenox, perhaps can be discontinued if ambulatory need for inpatient due to cognitive linguistic impairment , waiting safe disposition. Family not able to care for her at home. Awaiting safe placement Quality Stroke Does the patient have a stroke diagnosis?: No VTE Prior VTE?: No VTE Risk Level:: Medical - moderate - high VTE Device Contraindication: Treatment Not Indicated VTE Drug Contraindication: N/A - Med Ordered
[2021-09-12 15:35] VITALS: BP 104/64; PULSE 77; RESP 18; TEMP 37.2; O2SAT 100
[2021-09-12] MEDS: Multivitamin TABLET 1 TAB PO (19:53)
[2021-09-12 23:42] VITALS: BP 105/71; PULSE 88; RESP 18; TEMP 36.2; O2SAT 96
[2021-09-13] MEDS: Omeprazole 20 MG CAPSULE.DR PO (06:08)
[2021-09-13] MEDS: Enoxaparin Sodium 40 MG/0.4 ML SYRINGE SUBCUT (06:08)
[2021-09-13 07:54] VITALS: BP 115/80; PULSE 78; RESP 18; TEMP 36.7; O2SAT 95
[2021-09-13] MEDS: Thiamine HCL 100 MG TABLET PO (10:14)
[2021-09-13] MEDS: Docusate Sodium 100 MG CAPSULE PO (10:15)
[2021-09-13] MEDS: polyethylene glycoL 3350 17 GM POWD.PACK PO (10:15)
[2021-09-13] MEDS: Ferrous Sulfate 300 MG/5 ML LIQUID PO (10:15)
--- NOTE | 2021-09-13 11:11 | P.PNIM_ITS ---
Subjective Subjective Date of Service: 09/13/21 Interval History: Seen and examined, vital reviewed.. she has no new complaint Review of Systems no fever no new confusion Physical Exam 2 Vital Signs: Vital Signs: Last Vital Signs Temp 98.1 F 09/13/21 07:54 Pulse 78 09/13/21 07:54 Resp 18 09/13/21 07:54 BP 115/80 09/13/21 07:54 Pulse Ox 95 09/13/21 07:54 O2 Del Method 09/13/21 07:54 BMI result Body Mass Index 28.3 Const: Other: General: AO X3 Resp: CTA bilateral CVS: S1,S2,RRR GI: +BS, NT, no distention Skin: No rash Neuro: motor grossly intact Psych: appropriate affect, insight is questionable Objective Data Active Medications Acetaminophen (Acetaminophen 325 Mg Tablet) 650 mg PO Q6H PRN PRN Reason: Pain, Mild (Pain Scale 1-3) Benzonatate (Benzonatate 100 Mg Capsule) 200 mg PO TID PRN PRN Reason: cough Last Admin: 07/13/21 16:52 Dose: 200 mg Documented By: ROXANA Docusate Sodium (Docusate Sodium 100 Mg Capsule) 100 mg PO DAILY [facility] Last Admin: 09/13/21 10:15 Dose: 100 mg Documented By: PABLO Enoxaparin Sodium (Enoxaparin Sodium 40 Mg/0.4 Ml Syringe) 40 mg SUBCUT Q24H [facility] Last Admin: 09/13/21 06:08 Dose: 40 mg Documented By: RONALDO Ferrous Sulfate (Ferrous Sulfate 300 Mg/5 Ml Liquid) 300 mg PO DAILY [facility] Last Admin: 09/13/21 10:15 Dose: 300 mg Documented By: PABLO Guaifenesin/Dextromethorphan (Guaifenesin Dm 200/20/10 Ml 10 Ml Syrup) 5 ml PO Q4H PRN PRN Reason: cough Multivitamins/Vitamin C (Multivitamin Tablet) 1 tab PO BEDTIME [facility] Last Admin: 09/12/21 19:53 Dose: 1 tab Documented By: RONALDO Omeprazole (Omeprazole 20 Mg Capsule.) 20 mg PO DAILY@0630 [facility] Last Admin: 09/13/21 06:08 Dose: 20 mg Documented By: HO.ODRISM Ondansetron HCl (Ondansetron Hcl 4 Mg/2 Ml Vial) 4 mg IVPUSH Q8H PRN PRN Reason: Nausea and Vomiting Polyethylene Glycol (Polyethylene Glycol 3350 17 Gm Powd.Pack) 17 gm PO DAILY [facility] Last Admin: 09/13/21 10:15 Dose: 17 gm Documented By: PABLO Thiamine HCl (Thiamine Hcl 100 Mg Tablet) 100 mg PO DAILY [facility] Last Admin: 09/13/21 10:14 Dose: 100 mg Documented By: PABLO Labs CBC & Chem 7: 09/06/21 06:05 09/08/21 06:19 Assessment and Plan (1) Cognitive impairment: Status: Acute Plan 46-year-old female with of substance abuse presents to the hospital with confusion found to lack capacity to make medical decisions and awaiting placement essentially clinically change since last encounter, essentially awaiting safe dispo Per speech therapy note pt has ongoing moderate cognitive linguistic impairment, characterized by significant impairments in short-term memory, executive functions, generative naming; mild impairments in attention and visuospatial skills. Pych reassessed on 08/12 and reports that she still not have capacity to make decisions, healthcare proxy is invoked. Toxic metabolic encephalopathy secondary to substance abuse Psychiatry re-evaluation concludes Patient continues to lack clinical decision capacity at this time.?? E Coli UTI completed course of Abx Hyperkalemia. Resolved Mild, K 5.4 will repeat BMP in am Iron deficiency anemia H/H improved, wnl daily iron sup DVT prophylaxis Lovenox, perhaps can be discontinued if ambulatory need for inpatient due to cognitive linguistic impairment , waiting safe disposition. Family not able to care for her at home. Awaiting safe placement Quality Stroke Does the patient have a stroke diagnosis?: No VTE Prior VTE?: No VTE Risk Level:: Medical - moderate - high VTE Device Contraindication: Treatment Not Indicated VTE Drug Contraindication: N/A - Med Ordered
[2021-09-13 15:57] VITALS: BP 138/82; PULSE 86; RESP 17; TEMP 36.1; O2SAT 95
[2021-09-13] MEDS: Multivitamin TABLET 1 TAB PO (19:57)
[2021-09-13 23:18] VITALS: BP 106/59; PULSE 83; RESP 16; TEMP 36.3; O2SAT 95
[2021-09-14] MEDS: Omeprazole 20 MG CAPSULE.DR PO (05:31)
[2021-09-14] MEDS: Enoxaparin Sodium 40 MG/0.4 ML SYRINGE SUBCUT (05:31)
[2021-09-14 07:56] VITALS: BP 117/72; PULSE 80; RESP 18; TEMP 36.2; O2SAT 95
--- NOTE | 2021-09-14 08:14 | HO.PM.IMPN ---
Subjective Subjective Date of Service: 09/14/21 Interval History: Seen and examined, vital reviewed.. No change overnight Review of Systems no fever no new confusion Physical Exam Vital Signs: Vital Signs: Last Vital Signs Temp 97.2 F 09/14/21 07:56 Pulse 80 09/14/21 07:56 Resp 18 09/14/21 07:56 BP 117/72 09/14/21 07:56 Pulse Ox 95 09/14/21 07:56 O2 Del Method 09/14/21 07:56 BMI result Body Mass Index 28.3 Const: Other: General: AO X3 Resp: CTA bilateral CVS: S1,S2,RRR GI: +BS, NT, no distention Skin: No rash Neuro: motor grossly intact Psych: appropriate affect, insight is questionable Objective Data Active Medications Acetaminophen (Acetaminophen 325 Mg Tablet) 650 mg PO Q6H PRN PRN Reason: Pain, Mild (Pain Scale 1-3) Benzonatate (Benzonatate 100 Mg Capsule) 200 mg PO TID PRN PRN Reason: cough Last Admin: 07/13/21 16:52 Dose: 200 mg Documented By: ROXANA Docusate Sodium (Docusate Sodium 100 Mg Capsule) 100 mg PO DAILY [facility] Last Admin: 09/13/21 10:15 Dose: 100 mg Documented By: PABLO Enoxaparin Sodium (Enoxaparin Sodium 40 Mg/0.4 Ml Syringe) 40 mg SUBCUT Q24H [facility] Last Admin: 09/14/21 05:31 Dose: 40 mg Documented By: DOM Ferrous Sulfate (Ferrous Sulfate 300 Mg/5 Ml Liquid) 300 mg PO DAILY [facility] Last Admin: 09/13/21 10:15 Dose: 300 mg Documented By: PABLO Guaifenesin/Dextromethorphan (Guaifenesin Dm 200/20/10 Ml 10 Ml Syrup) 5 ml PO Q4H PRN PRN Reason: cough Multivitamins/Vitamin C (Multivitamin Tablet) 1 tab PO BEDTIME [facility] Last Admin: 09/13/21 19:57 Dose: 1 tab Documented By: DOM Omeprazole (Omeprazole 20 Mg Capsule.) 20 mg PO DAILY@0630 [facility] Last Admin: 09/14/21 05:31 Dose: 20 mg Documented By: DOM Ondansetron HCl (Ondansetron Hcl 4 Mg/2 Ml Vial) 4 mg IVPUSH Q8H PRN PRN Reason: Nausea and Vomiting Polyethylene Glycol (Polyethylene Glycol 3350 17 Gm Powd.Pack) 17 gm PO DAILY [facility] Last Admin: 09/13/21 10:15 Dose: 17 gm Documented By: PABLO Thiamine HCl (Thiamine Hcl 100 Mg Tablet) 100 mg PO DAILY [facility] Last Admin: 09/13/21 10:14 Dose: 100 mg Documented By: PABLO Labs CBC & Chem 7: 09/06/21 06:05 09/08/21 06:19 Assessment and Plan (1) Cognitive impairment: Status: Acute Plan 46-year-old female with of substance abuse presents to the hospital with confusion found to lack capacity to make medical decisions and awaiting placement essentially clinically change since last encounter, essentially awaiting safe dispo Per speech therapy note pt has ongoing moderate cognitive linguistic impairment, characterized by significant impairments in short-term memory, executive functions, generative naming; mild impairments in attention and visuospatial skills. Pych reassessed on 08/12 and reports that she still not have capacity to make decisions, healthcare proxy is invoked. Toxic metabolic encephalopathy secondary to substance abuse Psychiatry re-evaluation concludes Patient continues to lack clinical decision capacity at this time.?? E Coli UTI completed course of Abx Hyperkalemia. Resolved Mild, K 5.4 will repeat BMP in am Iron deficiency anemia H/H improved, wnl daily iron sup DVT prophylaxis Lovenox, perhaps can be discontinued if ambulatory need for inpatient due to cognitive linguistic impairment , waiting safe disposition. Family not able to care for her at home. Awaiting safe placement Quality Stroke Does the patient have a stroke diagnosis?: No VTE Prior VTE?: No VTE Risk Level:: Medical - moderate - high VTE Device Contraindication: Treatment Not Indicated VTE Drug Contraindication: N/A - Med Ordered
[2021-09-14] MEDS: polyethylene glycoL 3350 17 GM POWD.PACK PO (08:44)
[2021-09-14] MEDS: Docusate Sodium 100 MG CAPSULE PO (08:45)
[2021-09-14] MEDS: Thiamine HCL 100 MG TABLET PO (08:45)
[2021-09-14] MEDS: Ferrous Sulfate 300 MG/5 ML LIQUID PO (08:45)
[2021-09-14 15:49] VITALS: BP 108/55; PULSE 83; RESP 16; TEMP 36.6; O2SAT 94
[2021-09-14] MEDS: Multivitamin TABLET 1 TAB PO (22:08)
[2021-09-14 23:50] VITALS: BP 110/66; PULSE 84; RESP 17; TEMP 36.4; O2SAT 95
[2021-09-15] MEDS: Omeprazole 20 MG CAPSULE.DR PO (06:45)
[2021-09-15] MEDS: Enoxaparin Sodium 40 MG/0.4 ML SYRINGE SUBCUT (06:45)
[2021-09-15 07:23] VITALS: BP 119/68; PULSE 83; RESP 16; TEMP 36.6; O2SAT 95
[2021-09-15] MEDS: Ferrous Sulfate 300 MG/5 ML LIQUID PO (09:07)
[2021-09-15] MEDS: Docusate Sodium 100 MG CAPSULE PO (09:07)
[2021-09-15] MEDS: Thiamine HCL 100 MG TABLET PO (09:07)
--- NOTE | 2021-09-15 09:27 | HO.PM.IMPN ---
Subjective Subjective Date of Service: 09/15/21 Interval History: Seen and examined, vital reviewed.. has no new complaint Review of Systems no fever no new confusion Physical Exam Vital Signs: Vital Signs: Last Vital Signs Temp 97.9 F 09/15/21 07:23 Pulse 83 09/15/21 07:23 Resp 16 09/15/21 07:23 BP 119/68 09/15/21 07:23 Pulse Ox 95 09/15/21 07:23 O2 Del Method 09/15/21 07:23 BMI result Body Mass Index 28.3 Const: Other: General: AO X3 Resp: CTA bilateral CVS: S1,S2,RRR GI: +BS, NT, no distention Skin: No rash Neuro: motor grossly intact Psych: appropriate affect, insight is questionable Objective Data Active Medications Acetaminophen (Acetaminophen 325 Mg Tablet) 650 mg PO Q6H PRN PRN Reason: Pain, Mild (Pain Scale 1-3) Benzonatate (Benzonatate 100 Mg Capsule) 200 mg PO TID PRN PRN Reason: cough Last Admin: 07/13/21 16:52 Dose: 200 mg Documented By: ROXANA Docusate Sodium (Docusate Sodium 100 Mg Capsule) 100 mg PO DAILY [facility] Last Admin: 09/15/21 09:07 Dose: 100 mg Documented By: RIKI Enoxaparin Sodium (Enoxaparin Sodium 40 Mg/0.4 Ml Syringe) 40 mg SUBCUT Q24H [facility] Last Admin: 09/15/21 06:45 Dose: 40 mg Documented By: XIN Ferrous Sulfate (Ferrous Sulfate 300 Mg/5 Ml Liquid) 300 mg PO DAILY [facility] Last Admin: 09/15/21 09:07 Dose: 300 mg Documented By: RIKI Guaifenesin/Dextromethorphan (Guaifenesin Dm 200/20/10 Ml 10 Ml Syrup) 5 ml PO Q4H PRN PRN Reason: cough Multivitamins/Vitamin C (Multivitamin Tablet) 1 tab PO BEDTIME [facility] Last Admin: 09/14/21 22:08 Dose: 1 tab Documented By: COLJACK Omeprazole (Omeprazole 20 Mg Capsule.) 20 mg PO DAILY@0630 [facility] Last Admin: 09/15/21 06:45 Dose: 20 mg Documented By: XIN Ondansetron HCl (Ondansetron Hcl 4 Mg/2 Ml Vial) 4 mg IVPUSH Q8H PRN PRN Reason: Nausea and Vomiting Polyethylene Glycol (Polyethylene Glycol 3350 17 Gm Powd.Pack) 17 gm PO DAILY [facility] Last Admin: 09/15/21 09:08 Dose: Not Given Documented By: RIKI Non-Admin Reason: Patient Refused Thiamine HCl (Thiamine Hcl 100 Mg Tablet) 100 mg PO DAILY [facility] Last Admin: 09/15/21 09:07 Dose: 100 mg Documented By: RIKI Labs CBC & Chem 7: 09/06/21 06:05 09/08/21 06:19 Assessment and Plan (1) Cognitive impairment: Status: Acute Plan 46-year-old female with of substance abuse presents to the hospital with confusion found to lack capacity to make medical decisions and awaiting placement essentially clinically change since last encounter, essentially awaiting safe dispo Per speech therapy note pt has ongoing moderate cognitive linguistic impairment, characterized by significant impairments in short-term memory, executive functions, generative naming; mild impairments in attention and visuospatial skills. Pych reassessed on 08/12 and reports that she still not have capacity to make decisions, healthcare proxy is invoked. essentially no change in clinical status Toxic metabolic encephalopathy secondary to substance abuse Psychiatry re-evaluation concludes Patient continues to lack clinical decision capacity at this time.?? E Coli UTI completed course of Abx Hyperkalemia. Resolved Mild, K 5.4 will repeat BMP in am Iron deficiency anemia H/H improved, wnl daily iron sup DVT prophylaxis Lovenox, perhaps can be discontinued if ambulatory should be out of bed and ambulate several times a day need for inpatient due to cognitive linguistic impairment , waiting safe disposition. Family not able to care for her at home. Awaiting safe placement Quality Stroke Does the patient have a stroke diagnosis?: No VTE Prior VTE?: No VTE Risk Level:: Medical - moderate - high VTE Device Contraindication: Treatment Not Indicated VTE Drug Contraindication: N/A - Med Ordered
[2021-09-15 15:25] VITALS: BP 109/65; PULSE 88; RESP 18; TEMP 36.6; O2SAT 98
--- NOTE | 2021-09-15 15:44 | MHC.CM.PN ---
CM RECEIVED A CALL FROM [facility] REGARDING ADULT [facility] AND PER [facility] THEY CAN NOT SIGN PT ON D/T RECENT SA, CONTACT REPORTED THAT PT WOULD NEED TO BE CLEAN/SOBER 6-8MONTHS W/A STEM CRUSHER FOLLOWING BEFORE PT COULD BE RE-EVALUATED, CM UPPER [employer]APER HAS LEFT A MESSAGE FOR KAITLYNN [facility] AT [facility]. THIS CM CONTACTED SCOTTIE MOONE[facility] AT [phone] AND ROHINI REPORTED THEY WERE FULL, CM ATTEMPTED TO CONTACT [facility] [phone] HOWEVER NEITHER [facility] OR [facility] WERE IN, CM WILL REATTEMPT [facility].
[2021-09-15] MEDS: Multivitamin TABLET 1 TAB PO (20:57)
[2021-09-15 23:30] VITALS: BP 105/65; PULSE 97; RESP 17; TEMP 36.6; O2SAT 95
[2021-09-16] MEDS: Omeprazole 20 MG CAPSULE.DR PO (06:14)
[2021-09-16] MEDS: Enoxaparin Sodium 40 MG/0.4 ML SYRINGE SUBCUT (06:15)
[2021-09-16 08:00] VITALS: BP 112/78; PULSE 84; RESP 18; TEMP 37.2; O2SAT 95
[2021-09-16] MEDS: Ferrous Sulfate 300 MG/5 ML LIQUID PO (08:37)
[2021-09-16] MEDS: Thiamine HCL 100 MG TABLET PO (08:37)
--- NOTE | 2021-09-16 10:01 | HO.PM.IMPN ---
Subjective Subjective Date of Service: 09/16/21 Interval History: Doing well with no new complaint awaiting palcement Review of Systems no fever no new confusion Physical Exam Vital Signs: Vital Signs: Last Vital Signs Temp 99 F 09/16/21 08:00 Pulse 84 09/16/21 08:00 Resp 18 09/16/21 08:00 BP 112/78 09/16/21 08:00 Pulse Ox 95 09/16/21 08:00 O2 Del Method 09/16/21 08:00 BMI result Body Mass Index 28.3 Const: Other: General: AO X3 Resp: CTA bilateral CVS: S1,S2,RRR GI: +BS, NT, no distention Skin: No rash Neuro: motor grossly intact Psych: appropriate affect, insight is questionable Objective Data Active Medications Acetaminophen (Acetaminophen 325 Mg Tablet) 650 mg PO Q6H PRN PRN Reason: Pain, Mild (Pain Scale 1-3) Benzonatate (Benzonatate 100 Mg Capsule) 200 mg PO TID PRN PRN Reason: cough Last Admin: 07/13/21 16:52 Dose: 200 mg Documented By: ROXANA Docusate Sodium (Docusate Sodium 100 Mg Capsule) 100 mg PO DAILY [facility] Last Admin: 09/16/21 08:37 Dose: Not Given Documented By: RIKI Non-Admin Reason: Patient Refused Enoxaparin Sodium (Enoxaparin Sodium 40 Mg/0.4 Ml Syringe) 40 mg SUBCUT Q24H [facility] Last Admin: 09/16/21 06:15 Dose: 40 mg Documented By: XIN Ferrous Sulfate (Ferrous Sulfate 300 Mg/5 Ml Liquid) 300 mg PO DAILY [facility] Last Admin: 09/16/21 08:37 Dose: 300 mg Documented By: RIKI Guaifenesin/Dextromethorphan (Guaifenesin Dm 200/20/10 Ml 10 Ml Syrup) 5 ml PO Q4H PRN PRN Reason: cough Multivitamins/Vitamin C (Multivitamin Tablet) 1 tab PO BEDTIME [facility] Last Admin: 09/15/21 20:57 Dose: 1 tab Documented By: TONO Omeprazole (Omeprazole 20 Mg Capsule.) 20 mg PO DAILY@0630 [facility] Last Admin: 09/16/21 06:14 Dose: 20 mg Documented By: HO.SEXK Ondansetron HCl (Ondansetron Hcl 4 Mg/2 Ml Vial) 4 mg IVPUSH Q8H PRN PRN Reason: Nausea and Vomiting Polyethylene Glycol (Polyethylene Glycol 3350 17 Gm Powd.Pack) 17 gm PO DAILY [facility] Last Admin: 09/16/21 08:37 Dose: Not Given Documented By: RIKI Non-Admin Reason: Patient Refused Thiamine HCl (Thiamine Hcl 100 Mg Tablet) 100 mg PO DAILY [facility] Last Admin: 09/16/21 08:37 Dose: 100 mg Documented By: RIKI Labs CBC & Chem 7: 09/06/21 06:05 09/08/21 06:19 Assessment and Plan (1) Cognitive impairment: Status: Acute Plan 46-year-old female with of substance abuse presents to the hospital with confusion found to lack capacity to make medical decisions and awaiting placement essentially clinically change since last encounter, essentially awaiting safe dispo Per speech therapy note pt has ongoing moderate cognitive linguistic impairment, characterized by significant impairments in short-term memory, executive functions, generative naming; mild impairments in attention and visuospatial skills. Pych reassessed on 08/12 and reports that she still not have capacity to make decisions, healthcare proxy is invoked. essentially no change in clinical status Toxic metabolic encephalopathy secondary to substance abuse Psychiatry re-evaluation concludes Patient continues to lack clinical decision capacity at this time.?? E Coli UTI completed course of Abx Hyperkalemia. Resolved Mild, K 5.4 will repeat BMP in am Iron deficiency anemia H/H improved, wnl daily iron sup DVT prophylaxis Lovenox, perhaps can be discontinued if ambulatory should be out of bed and ambulate several times a day need for inpatient due to cognitive linguistic impairment , waiting safe disposition. Family not able to care for her at home. Awaiting safe placement Quality Stroke Does the patient have a stroke diagnosis?: No VTE Prior VTE?: No VTE Risk Level:: Medical - moderate - high VTE Device Contraindication: Treatment Not Indicated VTE Drug Contraindication: N/A - Med Ordered
[2021-09-16 15:21] VITALS: BP 103/64; PULSE 97; RESP 18; TEMP 36.3; O2SAT 92
[2021-09-16 16:00] VITALS: BP 103/64; PULSE 97; RESP 18; TEMP 36.3; O2SAT 92
[2021-09-16] MEDS: Multivitamin TABLET 1 TAB PO (20:08)
[2021-09-16 23:34] VITALS: BP 100/56; PULSE 82; RESP 17; TEMP 36.7; O2SAT 94
[2021-09-17] MEDS: Omeprazole 20 MG CAPSULE.DR PO (06:19)
[2021-09-17] MEDS: Enoxaparin Sodium 40 MG/0.4 ML SYRINGE SUBCUT (06:19)
[2021-09-17 07:44] VITALS: BP 114/75; PULSE 80; RESP 18; TEMP 36.4
--- NOTE | 2021-09-17 09:09 | MHC.CM.PN ---
CM RECEIVED MESSAGE FROM [facility] WHITNEY RUIZ REQUESTING [facility] NOTES FOR PT, PSYCH CONSULTS/MEDS/LABS SENT TO [facility] VIA [facility] TO SHEY SEGURA AND WHITNEY ANNA REPORTS PT WILL BE REVIEWED FOR IMELDA FIRST AND THEN [facility]OS[facility]. CM ATTEMPTED TO REACH ADMISSIONS AT [facility] 0900 , VERITO/MILLER UNAVAILABLE AND CM CONTACT INFO PROVIDED W/REQUEST FOR CALL BACK CM ALSO ATTEMPTED TO FOLLOW-UP W/PALLAVI AT [facility] AT 0910 , NO ANSWER, MESSAGE LEFT W/PALLAVI REQUESTING A CALL BACK, CM CONTACT INFO PROVIDED.
[2021-09-17] MEDS: Thiamine HCL 100 MG TABLET PO (10:43)
[2021-09-17] MEDS: Ferrous Sulfate 300 MG/5 ML LIQUID PO (10:44)
--- NOTE | 2021-09-17 11:33 | MHC.CM.PN ---
Cm received call back from [facility] at 11:32am reporting they are unable to offer a bed as they feel pt is inappropriate d/t hx of drug use and meemory issues.
[2021-09-17 15:31] VITALS: BP 111/69; PULSE 94; RESP 18; TEMP 36.8; O2SAT 92
--- NOTE | 2021-09-17 15:42 | P.PNIM_ITS ---
Subjective Subjective Date of Service: 09/17/21 Interval History: denies any pain or respiratory issues Review of Systems Review of Systems: Yes all other systems are reviewed and are negative Physical Exam Vital Signs: Vital Signs: Last Vital Signs Temp 98.2 F 09/17/21 15:31 Pulse 94 09/17/21 15:31 Resp 18 09/17/21 15:31 BP 111/69 09/17/21 15:31 Pulse Ox 92 09/17/21 15:31 O2 Del Method 09/17/21 15:31 BMI result Body Mass Index 28.3 Gen: in no acute distress HEENT: sclera anicteric, moist mucus membranes Neck: supple Lungs: clear to auscultation bilaterally Heart: regular rate and rhythm, no murmurs Abd: soft, non-tender, non-distended Ext: no edema Skin: warm/well-perfused Neuro: alert, oriented Psych: insight questionable Objective Data Active Medications Acetaminophen (Acetaminophen 325 Mg Tablet) 650 mg PO Q6H PRN PRN Reason: Pain, Mild (Pain Scale 1-3) Benzonatate (Benzonatate 100 Mg Capsule) 200 mg PO TID PRN PRN Reason: cough Last Admin: 07/13/21 16:52 Dose: 200 mg Documented By: ROXANA Docusate Sodium (Docusate Sodium 100 Mg Capsule) 100 mg PO DAILY [facility] Last Admin: 09/17/21 10:44 Dose: Not Given Documented By: RENNY Non-Admin Reason: Patient Refused Enoxaparin Sodium (Enoxaparin Sodium 40 Mg/0.4 Ml Syringe) 40 mg SUBCUT Q24H [facility] Last Admin: 09/17/21 06:19 Dose: 40 mg Documented By: XIN Ferrous Sulfate (Ferrous Sulfate 300 Mg/5 Ml Liquid) 300 mg PO DAILY [facility] Last Admin: 09/17/21 10:44 Dose: 300 mg Documented By: RENNY Guaifenesin/Dextromethorphan (Guaifenesin Dm 200/20/10 Ml 10 Ml Syrup) 5 ml PO Q4H PRN PRN Reason: cough Multivitamins/Vitamin C (Multivitamin Tablet) 1 tab PO BEDTIME [facility] Last Admin: 09/16/21 20:08 Dose: 1 tab Documented By: TONO Omeprazole (Omeprazole 20 Mg Jovani) 20 mg PO DAILY@0630 [facility] Last Admin: 09/17/21 06:19 Dose: 20 mg Documented By: XIN Ondansetron HCl (Ondansetron Hcl 4 Mg/2 Ml Vial) 4 mg IVPUSH Q8H PRN PRN Reason: Nausea and Vomiting Polyethylene Glycol (Polyethylene Glycol 3350 17 Gm Powd.Pack) 17 gm PO DAILY [facility] Last Admin: 09/17/21 10:44 Dose: Not Given Documented By: RENNY Non-Admin Reason: Patient Refused Thiamine HCl (Thiamine Hcl 100 Mg Tablet) 100 mg PO DAILY [facility] Last Admin: 09/17/21 10:43 Dose: 100 mg Documented By: RENNY Labs CBC & Chem 7: 09/06/21 06:05 09/08/21 06:19 Assessment and Plan (1) Cognitive impairment: Status: Acute [facility] hospital d#69 46-year-old female with of substance abuse presents to the hospital with confusion found to lack capacity to make medical decisions and awaiting place ment, clinically unchanged since last encounter, essentially awaiting safe disposition Per speech therapy note pt has ongoing moderate cognitive linguistic impairment, characterized by significant impairments in short-term memory, executive functions, generative naming; mild impairments in attention and visuospatial skills. Psych reassessed on 08/12 and reports that she still not have capacity to make decisions, so healthcare proxy is invoked # toxic metabolic encephalopathy - secondary to substance abuse - psychiatry re-evaluation 09/01 concludes patient continues to lack clinical decision capacity at this time.?? # E Coli UTI - completed course of ABX # hyperkalemia - resolved # ASIF - continue Fe supplementation, Hb improved # VTE ppx: LMWH # dispo: awaitin safe placement need for inpatient due to cognitive linguistic impairment , waiting safe disposition. Family not able to care for her at home. Awaiting safe placement Quality Stroke Does the patient have a stroke diagnosis?: No VTE Prior VTE?: No VTE Risk Level:: Medical - moderate - high VTE Device Contraindication: Treatment Not Indicated VTE Drug Contraindication: N/A - Med Ordered
[2021-09-17] MEDS: Multivitamin TABLET 1 TAB PO (20:24)
[2021-09-17 23:16] VITALS: BP 106/69; PULSE 80; RESP 17; TEMP 36.4; O2SAT 95
[2021-09-18] MEDS: Omeprazole 20 MG CAPSULE.DR PO (05:38)
[2021-09-18] MEDS: Enoxaparin Sodium 40 MG/0.4 ML SYRINGE SUBCUT (05:38)
[2021-09-18 07:45] VITALS: BP 119/81; PULSE 81; RESP 18; TEMP 36.9; O2SAT 93
[2021-09-18] MEDS: Ferrous Sulfate 300 MG/5 ML LIQUID PO (09:44)
[2021-09-18] MEDS: Thiamine HCL 100 MG TABLET PO (09:44)
[2021-09-18] MEDS: Docusate Sodium 100 MG CAPSULE PO (09:44)
[2021-09-18] MEDS: polyethylene glycoL 3350 17 GM POWD.PACK PO (09:44)
--- NOTE | 2021-09-18 11:44 | HO.PM.IMPN ---
Subjective Subjective Date of Service: 09/18/21 Interval History: Denies pain or any other complaints Review of Systems Review of Systems: Yes all other systems are reviewed and are negative Physical Exam Vital Signs: Vital Signs: Last Vital Signs Temp 98.4 F 09/18/21 07:45 Pulse 81 09/18/21 07:45 Resp 18 09/18/21 07:45 BP 119/81 09/18/21 07:45 Pulse Ox 93 09/18/21 07:45 O2 Del Method 09/18/21 07:45 BMI result Body Mass Index 28.3 Gen: in no acute distress HEENT: sclera anicteric, moist mucus membranes Neck: supple Lungs: clear to auscultation bilaterally Heart: regular rate and rhythm, no murmurs Abd: soft, non-tender, non-distended Ext: no edema Skin: warm/well-perfused Neuro: alert, oriented Psych: insight questionable Objective Data Active Medications Acetaminophen (Acetaminophen 325 Mg Tablet) 650 mg PO Q6H PRN PRN Reason: Pain, Mild (Pain Scale 1-3) Benzonatate (Benzonatate 100 Mg Capsule) 200 mg PO TID PRN PRN Reason: cough Last Admin: 07/13/21 16:52 Dose: 200 mg Documented By: ROXANA Docusate Sodium (Docusate Sodium 100 Mg Capsule) 100 mg PO DAILY [facility] Last Admin: 09/18/21 09:44 Dose: 100 mg Documented By: ERICA Enoxaparin Sodium (Enoxaparin Sodium 40 Mg/0.4 Ml Syringe) 40 mg SUBCUT Q24H [facility] Last Admin: 09/18/21 05:38 Dose: 40 mg Documented By: XIN Ferrous Sulfate (Ferrous Sulfate 300 Mg/5 Ml Liquid) 300 mg PO DAILY [facility] Last Admin: 09/18/21 09:44 Dose: 300 mg Documented By: ERICA Guaifenesin/Dextromethorphan (Guaifenesin Dm 200/20/10 Ml 10 Ml Syrup) 5 ml PO Q4H PRN PRN Reason: cough Multivitamins/Vitamin C (Multivitamin Tablet) 1 tab PO BEDTIME [facility] Last Admin: 09/17/21 20:24 Dose: 1 tab Documented By: TONO Omeprazole (Omeprazole 20 Mg Jovani.) 20 mg PO DAILY@0630 [facility] Last Admin: 09/18/21 05:38 Dose: 20 mg Documented By: XIN Ondansetron HCl (Ondansetron Hcl 4 Mg/2 Ml Vial) 4 mg IVPUSH Q8H PRN PRN Reason: Nausea and Vomiting Polyethylene Glycol (Polyethylene Glycol 3350 17 Gm Powd.Pack) 17 gm PO DAILY [facility] Last Admin: 09/18/21 09:44 Dose: 17 gm Documented By: ERICA Thiamine HCl (Thiamine Hcl 100 Mg Tablet) 100 mg PO DAILY [facility] Last Admin: 09/18/21 09:44 Dose: 100 mg Documented By: ERICA Labs CBC & Chem 7: 09/06/21 06:05 09/08/21 06:19 Assessment and Plan (1) Cognitive impairment: Status: Acute Plan hospital d#70 46-year-old female with of substance abuse presents to the hospital with confusion found to lack capacity to make medical decisions and awaiting placement, clinically unchanged since last encounter, essentially awaiting safe disposition Per speech therapy note pt has ongoing moderate cognitive linguistic impairment, characterized by significant impairments in short-term memory, executive functions, generative naming; mild impairments in attention and visuospatial skills. Psych reassessed on 08/12 and reports that she still not have capacity to make decisions, so healthcare proxy is invoked # toxic metabolic encephalopathy - secondary to substance abuse - psychiatry re-evaluation 09/01 concludes patient continues to lack clinical decision capacity at this time.?? # E Coli UTI - completed course of ABX # hyperkalemia - resolved # ASIF - continue Fe supplementation, Hb improved # VTE ppx: LMWH # dispo: awaiting safe placement need for inpatient due to cognitive linguistic impairment , waiting safe disposition. Family not able to care for her at home. Awaiting safe placement Quality Stroke Does the patient have a stroke diagnosis?: No VTE Prior VTE?: No VTE Risk Level:: Medical - moderate - high VTE Device Contraindication: Treatment Not Indicated VTE Drug Contraindication: N/A - Med Ordered
--- NOTE | 2021-09-18 12:56 | MHC.CM.PN ---
CM CONTACTED PT'S FATHER /HCP JOHNATHAN OMNTIEL FOR CONSENT FOR PT'S SECOND PFIZER VACCINE, JOHNATHAN GAVE CONSENT AND VACCINE WILL BE ADMINISTERED TOMORROW 09/19 AT APPROX 12:30-1:00PM BY PHARMACY PHARMACIST. CM MET WITH PT WELL AND SHE IS AGREEABLE WELL. PAPERWORK HAS BEEN FAXED TO PHARMACY [phone].
[2021-09-18 15:41] VITALS: BP 119/72; PULSE 88; RESP 17; TEMP 36.3; O2SAT 95
[2021-09-18] MEDS: Multivitamin TABLET 1 TAB PO (19:25)
[2021-09-18 23:59] VITALS: BP 123/69; PULSE 89; RESP 18; TEMP 36.8; O2SAT 97
[2021-09-19] MEDS: Enoxaparin Sodium 40 MG/0.4 ML SYRINGE SUBCUT (05:51)
[2021-09-19] MEDS: Omeprazole 20 MG CAPSULE.DR PO (05:53)
[2021-09-19 07:25] VITALS: BP 119/74; PULSE 76; RESP 16; TEMP 36.1; O2SAT 95
[2021-09-19] MEDS: Docusate Sodium 100 MG CAPSULE PO (09:03)
[2021-09-19] MEDS: Ferrous Sulfate 300 MG/5 ML LIQUID PO (09:03)
[2021-09-19] MEDS: polyethylene glycoL 3350 17 GM POWD.PACK PO (09:03)
[2021-09-19] MEDS: Thiamine HCL 100 MG TABLET PO (09:03)
--- NOTE | 2021-09-19 12:54 | P.PNIM_ITS ---
Subjective Subjective Date of Service: 09/19/21 Interval History: no complaints Review of Systems Review of Systems: Yes all other systems are reviewed and are negative Physical Exam Vital Signs: Vital Signs: Last Vital Signs Temp 96.9 F 09/19/21 07:25 Pulse 76 09/19/21 07:25 Resp 16 09/19/21 07:25 BP 119/74 09/19/21 07:25 Pulse Ox 95 09/19/21 07:25 O2 Del Method 09/19/21 07:25 BMI result Body Mass Index 28.3 Gen: in no acute distress HEENT: sclera anicteric, moist mucus membranes Neck: supple Lungs: clear to auscultation bilaterally Heart: regular rate and rhythm, no murmurs Abd: soft, non-tender, non-distended Ext: no edema Skin: warm/well-perfused Neuro: alert, oriented Psych: insight questionable Objective Data Active Medications Acetaminophen (Acetaminophen 325 Mg Tablet) 650 mg PO Q6H PRN PRN Reason: Pain, Mild (Pain Scale 1-3) Benzonatate (Benzonatate 100 Mg Capsule) 200 mg PO TID PRN PRN Reason: cough Last Admin: 07/13/21 16:52 Dose: 200 mg Documented By: ROXANA Docusate Sodium (Docusate Sodium 100 Mg Capsule) 100 mg PO DAILY [facility] Last Admin: 09/19/21 09:03 Dose: 100 mg Documented By: ERICA Enoxaparin Sodium (Enoxaparin Sodium 40 Mg/0.4 Ml Syringe) 40 mg SUBCUT Q24H [facility] Last Admin: 09/19/21 05:51 Dose: 40 mg Documented By: BALJEET Ferrous Sulfate (Ferrous Sulfate 300 Mg/5 Ml Liquid) 300 mg PO DAILY [facility] Last Admin: 09/19/21 09:03 Dose: 300 mg Documented By: ERICA Guaifenesin/Dextromethorphan (Guaifenesin Dm 200/20/10 Ml 10 Ml Syrup) 5 ml PO Q4H PRN PRN Reason: cough Multivitamins/Vitamin C (Multivitamin Tablet) 1 tab PO BEDTIME [facility] Last Admin: 09/18/21 19:25 Dose: 1 tab Documented By: BALJEET Omeprazole (Omeprazole 20 Mg Capsule.Dr) 20 mg PO DAILY@0630 [facility] Last Admin: 09/19/21 05:53 Dose: 20 mg Documented By: BALJEET Ondansetron HCl (Ondansetron Hcl 4 Mg/2 Ml Vial) 4 mg IVPUSH Q8H PRN PRN Reason: Nausea and Vomiting Polyethylene Glycol (Polyethylene Glycol 3350 17 Gm Powd.Pack) 17 gm PO DAILY [facility] Last Admin: 09/19/21 09:03 Dose: 17 gm Documented By: ERICA Thiamine HCl (Thiamine Hcl 100 Mg Tablet) 100 mg PO DAILY [facility] Last Admin: 09/19/21 09:03 Dose: 100 mg Documented By: ERICA Labs CBC & Chem 7: 09/06/21 06:05 09/08/21 06:19 Assessment and Plan (1) Cognitive impairment: Status: Acute [facility] hospital d#71 46-year-old female with of substance abuse presents to the hospital with confusion found to lack capacity to make medical decisions and awaiting placement, clinically unchanged since last encounter, essentially awaiting safe disposition Per speech therapy note pt has ongoing moderate cognitive linguistic impairment, characterized by significant impairments in short-term memory, executive functions, generative naming; mild impairments in attention and visuospatial skills. Psych reassessed on 08/12 and reports that she still not have capacity to make decisions, so healthcare proxy is invoked # toxic metabolic encephalopathy - secondary to substance abuse - psychiatry re-evaluation 09/01 concludes patient continues to lack clinical decision capacity at this time.?? # E Coli UTI - completed course of ABX # hyperkalemia - resolved # ASIF - continue Fe supplementation, Hb improved # VTE ppx: LMWH # dispo: awaiting safe placement need for inpatient due to cognitive linguistic impairment , waiting safe disposition. Family not able to care for her at home. Awaiting safe placement 2nd dose of [employer] mRNA Covid-19 vaccine today Quality Stroke Does the patient have a stroke diagnosis?: No VTE Prior VTE?: No VTE Risk Level:: Medical - moderate - high VTE Device Contraindication: Treatment Not Indicated VTE Drug Contraindication: N/A - Med Ordered
--- NOTE | 2021-09-19 13:54 | MHC.CM.PN ---
EMR REVIEWED, PT REMAINS MEDICALLY CLEARED FOR D/C HOWEVER DOES NOT HAVE CAPACITY AND HCP REMAINS INVOKED, CM STILL AWAITING FINAL RESPONSE FROM [facility] AFTER NEURO CONSULT AND BRAIN MRI WERE SENT YESTERDAY 09/18. NO FURTHER ASSISTED LIVING RESPONSES. PT RECEIVED 2ND PFIZER VACCINE AT 12:45PM TODAY IN LEFT DELTOID, NURSING AWARE. CM WILL CONT TO FOLLOW REFERRALS FOR PLACEMENT AND D/C NEEDS.
[2021-09-19 15:46] VITALS: BP 97/58; PULSE 84; RESP 18; TEMP 36.9; O2SAT 92
[2021-09-19] MEDS: Multivitamin TABLET 1 TAB PO (20:08)
[2021-09-19 23:24] VITALS: BP 101/58; PULSE 81; RESP 18; TEMP 36.4; O2SAT 96
[2021-09-20] MEDS: Enoxaparin Sodium 40 MG/0.4 ML SYRINGE SUBCUT (06:16)
[2021-09-20] MEDS: Omeprazole 20 MG CAPSULE.DR PO (06:16)
[2021-09-20 07:38] VITALS: BP 113/83; PULSE 92; RESP 18; TEMP 36.7; O2SAT 96
[2021-09-20] MEDS: Docusate Sodium 100 MG CAPSULE PO (09:35)
[2021-09-20] MEDS: Ferrous Sulfate 300 MG/5 ML LIQUID PO (09:35)
[2021-09-20] MEDS: Thiamine HCL 100 MG TABLET PO (09:35)
--- NOTE | 2021-09-20 09:37 | P.PNIM_ITS ---
Subjective Subjective Date of Service: 09/20/21 Interval History: No c/o pain or GI upset Review of Systems Review of Systems: Yes all other systems are reviewed and are negative Physical Exam Vital Signs: Vital Signs: Last Vital Signs Temp 98.0 F 09/20/21 07:38 Pulse 92 09/20/21 07:38 Resp 18 09/20/21 07:38 BP 113/83 09/20/21 07:38 Pulse Ox 96 09/20/21 07:38 O2 Del Method 09/20/21 07:38 BMI result Gen: in no acute distress Lungs: no rmal effort Neuro: alert, oriented P sych: insight ques tionable Body Mas s Index 28.3 Objective Data Active Medications Acetaminophen (Acetaminophen 325 Mg Tablet) 650 mg PO Q6H PRN PRN Reason: Pain, Mild (Pain Scale 1-3) Benzonatate (Benzonatate 100 Mg Capsule) 200 mg PO TID PRN PRN Reason: cough Last Admin: 07/13/21 16:52 Dose: 200 mg Documented By: ROXANA Docusate Sodium (Docusate Sodium 100 Mg Capsule) 100 mg PO DAILY [facility] Last Admin: 09/20/21 09:35 Dose: 100 mg Documented By: EVERARDO Enoxaparin Sodium (Enoxaparin Sodium 40 Mg/0.4 Ml Syringe) 40 mg SUBCUT Q24H [facility] Last Admin: 09/20/21 06:16 Dose: 40 mg Documented By: JANENE Ferrous Sulfate (Ferrous Sulfate 300 Mg/5 Ml Liquid) 300 mg PO DAILY [facility] Last Admin: 09/20/21 09:35 Dose: 300 mg Documented By: EVERARDO Guaifenesin/Dextromethorphan (Guaifenesin Dm 200/20/10 Ml 10 Ml Syrup) 5 ml PO Q4H PRN PRN Reason: cough Multivitamins/Vitamin C (Multivitamin Tablet) 1 tab PO BEDTIME [facility] Last Admin: 09/19/21 20:08 Dose: 1 tab Documented By: JANENE Omeprazole (Omeprazole 20 Mg Capsule.) 20 mg PO DAILY@0630 [facility] Last Admin: 09/20/21 06:16 Dose: 20 mg Documented By: JANENE Ondansetron HCl (Ondansetron Hcl 4 Mg/2 Ml Vial) 4 mg IVPUSH Q8H PRN PRN Reason: Nausea and Vomiting Polyethylene Glycol (Polyethylene Glycol 3350 17 Gm Powd.Pack) 17 gm PO DAILY [facility] Last Admin: 09/20/21 09:36 Dose: Not Given Documented By: EVERARDO Non-Admin Reason: Patient Refused Thiamine HCl (Thiamine Hcl 100 Mg Tablet) 100 mg PO DAILY [facility] Last Admin: 09/20/21 09:35 Dose: 100 mg Documented By: EVERARDO Labs CBC & Chem 7: 09/06/21 06:05 09/08/21 06:19 Assessment and Plan (1) Cognitive impairment: Status: Acute [facility] hospital d#72 46-year-old female with of substance abuse presents to the hospital with con fusion found to lack capacity to make medical decisions and awaiting placement, clinically unchanged since last encounter, essentially awaiting safe disposition Per speech therapy note pt has ongoing moderate cognitive linguistic impairment, characterized by significant impairments in short-term memory, executive functions, generative naming; mild impairments in attention and visuospatial skills. Psych reassessed on 08/12 and reports that she still not have capacity to make decisions, so healthcare proxy is invoked # toxic metabolic encephalopathy - secondary to substance abuse - psychiatry re-evaluation 09/01 concludes patient continues to lack clinical decision capacity at this time.?? # E Coli UTI - completed course of ABX # hyperkalemia - resolved # ASIF - continue Fe supplementation, Hb improved # VTE ppx: LMWH # dispo: awaiting safe placement need for inpatient due to cognitive linguistic impairment , waiting safe disposition. Family not able to care for her at home. Awaiting safe placement 2nd dose of [employer] mRNA Covid-19 vaccine given 09/19/21 Quality Stroke Does the patient have a stroke diagnosis?: No VTE Prior VTE?: No VTE Risk Level:: Medical - moderate - high VTE Device Contraindication: Treatment Not Indicated VTE Drug Contraindication: N/A - Med Ordered
[2021-09-20 15:22] VITALS: BP 117/72; PULSE 90; RESP 18; TEMP 36.7; O2SAT 97
[2021-09-20] MEDS: Multivitamin TABLET 1 TAB PO (22:09)
[2021-09-20 23:11] VITALS: BP 93/67; PULSE 81; RESP 18; TEMP 36.7; O2SAT 94
[2021-09-21] MEDS: Omeprazole 20 MG CAPSULE.DR PO (06:13)
[2021-09-21] MEDS: Enoxaparin Sodium 40 MG/0.4 ML SYRINGE SUBCUT (06:15)
[2021-09-21 07:29] VITALS: BP 116/74; PULSE 83; RESP 20; TEMP 36.3; O2SAT 96
--- NOTE | 2021-09-21 10:05 | P.PNIM_ITS ---
Subjective Subjective Date of Service: 09/21/21 Interval History: No complaints. Review of Systems Review of Systems: Yes all other systems are reviewed and are negative Physical Exam Vital Signs: Vital Signs: Last Vital Signs Temp 97.4 F 09/21/21 07:29 Pulse 83 09/21/21 07:29 Resp 20 09/21/21 07:29 BP 116/74 09/21/21 07:29 Pulse Ox 96 09/21/21 07:29 O2 Del Method 09/21/21 07:29 BMI result Body Mass Index 28.3 Gen: in no acute d istress Lungs: no respiratory distre ss Neuro: alert, o riented Psych: ins ight questionable Objective Data Active Medications Acetaminophen (Acetaminophen 325 Mg Tablet) 650 mg PO Q6H PRN PRN Reason: Pain, Mild (Pain Scale 1-3) Benzonatate (Benzonatate 100 Mg Capsule) 200 mg PO TID PRN PRN Reason: cough Last Admin: 07/13/21 16:52 Dose: 200 mg Documented By: ROXANA Docusate Sodium (Docusate Sodium 100 Mg Capsule) 100 mg PO DAILY [facility] Last Admin: 09/20/21 09:35 Dose: 100 mg Documented By: EVERARDO Enoxaparin Sodium (Enoxaparin Sodium 40 Mg/0.4 Ml Syringe) 40 mg SUBCUT Q24H [facility] Last Admin: 09/21/21 06:15 Dose: 40 mg Documented By: BALJEET Ferrous Sulfate (Ferrous Sulfate 300 Mg/5 Ml Liquid) 300 mg PO DAILY [facility] Last Admin: 09/20/21 09:35 Dose: 300 mg Documented By: EVERARDO Guaifenesin/Dextromethorphan (Guaifenesin Dm 200/20/10 Ml 10 Ml Syrup) 5 ml PO Q4H PRN PRN Reason: cough Multivitamins/Vitamin C (Multivitamin Tablet) 1 tab PO BEDTIME [facility] Last Admin: 09/20/21 22:09 Dose: 1 tab Documented By: BALJEET Omeprazole (Omeprazole 20 Mg Capsule.) 20 mg PO DAILY@0630 [facility] Last Admin: 09/21/21 06:13 Dose: 20 mg Documented By: BALJEET Ondansetron HCl (Ondansetron Hcl 4 Mg/2 Ml Vial) 4 mg IVPUSH Q8H PRN PRN Reason: Nausea and Vomiting Polyethylene Glycol (Polyethylene Glycol 3350 17 Gm Powd.Pack) 17 gm PO DAILY [facility] Last Admin: 09/20/21 09:36 Dose: Not Given Documented By: EVERARDO Non-Admin Reason: Patient Refused Thiamine HCl (Thiamine Hcl 100 Mg Tablet) 100 mg PO DAILY [facility] Last Admin: 09/20/21 09:35 Dose: 100 mg Documented By: EVERARDO Labs CBC & Chem 7: 09/06/21 06:05 09/08/21 06:19 Assessment and Plan (1) Cognitive impairment: Status: Acute [facility] hospital d#73 46-year-old female with of substance abuse presents to the hospital with confusion found to lack capacity to make medical decisions and awaiting placement, clinically unchanged since last encounter, essentially awaiting safe disposition Per speech therapy note pt has ongoing moderate cognitive linguistic impairment, characterized by significant impairments in short-term memory, executive functions, generative naming; mild impairments in attention and visuospatial skills. Psych reassessed on 08/12 and reports that she still not have capacity to make decisions, so healthcare proxy is invoked # toxic metabolic encephalopathy - secondary to substance abuse - psychiatry re-evaluation 09/01 concludes patient continues to lack clinical decision capacity at this time.?? # E Coli UTI - completed course of ABX # hyperkalemia - resolved # ASIF - continue Fe supplementation, Hb improved # VTE ppx: LMWH # dispo: awaiting safe placement need for inpatient due to cognitive linguistic impairment , waiting safe disposition. Family not able to care for her at home. Awaiting safe placement 2nd dose of [employer] mRNA Covid-19 vaccine given 09/19/21 Quality Stroke Does the patient have a stroke diagnosis?: No VTE Prior VTE?: No VTE Risk Level:: Medical - moderate - high VTE Device Contraindication: Treatment Not Indicated VTE Drug Contraindication: N/A - Med Ordered
[2021-09-21] MEDS: Thiamine HCL 100 MG TABLET PO (10:32)
[2021-09-21] MEDS: polyethylene glycoL 3350 17 GM POWD.PACK PO (10:32)
[2021-09-21] MEDS: Docusate Sodium 100 MG CAPSULE PO (10:32)
[2021-09-21] MEDS: Ferrous Sulfate 300 MG/5 ML LIQUID PO (10:32)
[2021-09-21 16:00] VITALS: BP 111/78; PULSE 82; RESP 18; TEMP 36.1; O2SAT 95
[2021-09-21] MEDS: Multivitamin TABLET 1 TAB PO (20:07)
[2021-09-21 23:27] VITALS: BP 94/56; PULSE 80; RESP 17; TEMP 36.6; O2SAT 95
[2021-09-22] MEDS: Omeprazole 20 MG CAPSULE.DR PO (05:45)
[2021-09-22] MEDS: Enoxaparin Sodium 40 MG/0.4 ML SYRINGE SUBCUT (05:45)
[2021-09-22 07:53] VITALS: BP 115/75; PULSE 77; RESP 20; TEMP 36.9; O2SAT 96
[2021-09-22] MEDS: Thiamine HCL 100 MG TABLET PO (10:00)
[2021-09-22] MEDS: polyethylene glycoL 3350 17 GM POWD.PACK PO (10:00)
[2021-09-22] MEDS: Ferrous Sulfate 300 MG/5 ML LIQUID PO (10:00)
[2021-09-22] MEDS: Docusate Sodium 100 MG CAPSULE PO (10:00)
--- NOTE | 2021-09-22 13:27 | HO.PM.IMPN ---
Subjective Subjective Date of Service: 09/22/21 Interval History: Laying in bed, feels comfortable Denies any fever, chills or shortness of breath No reported other overnight events. Systemic review: No fever, chills or weakness No chest pain, palpitation No shortness of breath or coughing No abdominal pain, nausea or vomiting No urinary symptoms No any rash or wounds Physical Exam Vital Signs: Vital Signs: Last Vital Signs Temp 98.5 F 09/22/21 07:53 Pulse 77 09/22/21 07:53 Resp 20 09/22/21 07:53 BP 115/75 09/22/21 07:53 Pulse Ox 96 09/22/21 07:53 O2 Del Method 09/22/21 07:53 BMI result Body Mass Index 28.3 Const: Other: General:? alert, awake in no acute distress neck no JVD Resp:? Chest wall moving bilateral, no wheezing CVS: S1,S2,RRR GI:? abdomen soft, nontender, bowel sounds audible Skin: No rash Neuro:? motor grossly intact Objective Data Active Medications Acetaminophen (Acetaminophen 325 Mg Tablet) 650 mg PO Q6H PRN PRN Reason: Pain, Mild (Pain Scale 1-3) Benzonatate (Benzonatate 100 Mg Capsule) 200 mg PO TID PRN PRN Reason: cough Last Admin: 07/13/21 16:52 Dose: 200 mg Documented By: ROXANA Docusate Sodium (Docusate Sodium 100 Mg Capsule) 100 mg PO DAILY [facility] Last Admin: 09/22/21 10:00 Dose: 100 mg Documented By: ERICA Enoxaparin Sodium (Enoxaparin Sodium 40 Mg/0.4 Ml Syringe) 40 mg SUBCUT Q24H [facility] Last Admin: 09/22/21 05:45 Dose: 40 mg Documented By: JANENE Ferrous Sulfate (Ferrous Sulfate 300 Mg/5 Ml Liquid) 300 mg PO DAILY [facility] Last Admin: 09/22/21 10:00 Dose: 300 mg Documented By: ERICA Guaifenesin/Dextromethorphan (Guaifenesin Dm 200/20/10 Ml 10 Ml Syrup) 5 ml PO Q4H PRN PRN Reason: cough Multivitamins/Vitamin C (Multivitamin Tablet) 1 tab PO BEDTIME [facility] Last Admin: 09/21/21 20:07 Dose: 1 tab Documented By: JANENE Omeprazole (Omeprazole 20 Mg Capsule.) 20 mg PO DAILY@0630 [facility] Last Admin: 09/22/21 05:45 Dose: 20 mg Documented By: JANENE Ondansetron HCl (Ondansetron Hcl 4 Mg/2 Ml Vial) 4 mg IVPUSH Q8H PRN PRN Reason: Nausea and Vomiting Polyethylene Glycol (Polyethylene Glycol 3350 17 Gm Powd.Pack) 17 gm PO DAILY [facility] Last Admin: 09/22/21 10:00 Dose: 17 gm Documented By: ERICA Thiamine HCl (Thiamine Hcl 100 Mg Tablet) 100 mg PO DAILY [facility] Last Admin: 09/22/21 10:00 Dose: 100 mg Documented By: ERICA Labs CBC & Chem 7: 09/06/21 06:05 09/08/21 06:19 Assessment and Plan (1) Cognitive impairment: Status: Acute Plan 46-year-old female with of substance abuse presents to the hospital with confusion found to lack capacity to make medical decisions and awaiting placement Cognitive impairment suspected secondary to history of polysubstance abuse urine toxicology positive for cocaine, fentanyl, and marijuana although the patient adamantly denies using any illicit substance, her parents confirmed that she was actively using substances Neurology input appreciated, brain changes on imaging consistent with cocaine abuse per speech therapy note on August 08 patient is doing well with her ability to respond to confrontational naming OT evaluation Pych reassessed on 08/12 and report that she did not have capacity to make decisions, healthcare proxy is invoked case discussed with social media marketing specialist and occupational therapy E Coli UTI completed course of Abx DVT prophylaxis Lovenox need for inpatient due to cognitive linguistic impairment , waiting safe disposition given that she needs 24-hour observation. Family not able to care for her at home. Quality Stroke Does the patient have a stroke diagnosis?: No VTE Prior VTE?: No VTE Risk Level:: Medical - moderate - high VTE Device Contraindication: Treatment Not Indicated VTE Drug Contraindication: N/A - Med Ordered
[2021-09-22 16:00] VITALS: BP 115/72; PULSE 85; RESP 18; TEMP 37.2; O2SAT 96
[2021-09-22] MEDS: Multivitamin TABLET 1 TAB PO (20:23)
[2021-09-23 00:04] VITALS: BP 93/64; PULSE 87; RESP 16; TEMP 36.2; O2SAT 95
[2021-09-23] MEDS: Omeprazole 20 MG CAPSULE.DR PO (06:44)
[2021-09-23] MEDS: Enoxaparin Sodium 40 MG/0.4 ML SYRINGE SUBCUT (06:44)
[2021-09-23 07:51] VITALS: BP 114/82; PULSE 84; RESP 16; TEMP 36.4; O2SAT 94
[2021-09-23] MEDS: Docusate Sodium 100 MG CAPSULE PO (09:57)
[2021-09-23] MEDS: Thiamine HCL 100 MG TABLET PO (09:57)
[2021-09-23] MEDS: polyethylene glycoL 3350 17 GM POWD.PACK PO (09:57)
[2021-09-23] MEDS: Ferrous Sulfate 300 MG/5 ML LIQUID PO (09:57)
--- NOTE | 2021-09-23 11:44 | HO.PM.IMPN ---
Subjective Subjective Date of Service: 09/23/21 Interval History: Laying in bed, feels comfortable Denies any fever, chills or shortness of breath No reported other overnight events. Systemic review: No fever, chills or weakness No chest pain, palpitation No shortness of breath or coughing No abdominal pain, nausea or vomiting No urinary symptoms No any rash or wounds Physical Exam Vital Signs: Vital Signs: Last Vital Signs Temp 97.5 F 09/23/21 07:51 Pulse 84 09/23/21 07:51 Resp 16 09/23/21 07:51 BP 114/82 09/23/21 07:51 Pulse Ox 94 09/23/21 07:51 O2 Del Method 09/23/21 07:51 BMI result Body Mass Index 28.3 Const: Other: General:? alert, awake in no acute distress neck no JVD Resp:? Chest wall moving bilateral, no wheezing CVS: S1,S2,RRR GI:? abdomen soft, nontender, bowel sounds audible Skin: No rash Neuro:? motor grossly intact Objective Data Active Medications Acetaminophen (Acetaminophen 325 Mg Tablet) 650 mg PO Q6H PRN PRN Reason: Pain, Mild (Pain Scale 1-3) Benzonatate (Benzonatate 100 Mg Capsule) 200 mg PO TID PRN PRN Reason: cough Last Admin: 07/13/21 16:52 Dose: 200 mg Documented By: ROXANA Docusate Sodium (Docusate Sodium 100 Mg Capsule) 100 mg PO DAILY [facility] Last Admin: 09/23/21 09:57 Dose: 100 mg Documented By: ERICA Enoxaparin Sodium (Enoxaparin Sodium 40 Mg/0.4 Ml Syringe) 40 mg SUBCUT Q24H [facility] Last Admin: 09/23/21 06:44 Dose: 40 mg Documented By: JANENE Ferrous Sulfate (Ferrous Sulfate 300 Mg/5 Ml Liquid) 300 mg PO DAILY [facility] Last Admin: 09/23/21 09:57 Dose: 300 mg Documented By: ERICA Guaifenesin/Dextromethorphan (Guaifenesin Dm 200/20/10 Ml 10 Ml Syrup) 5 ml PO Q4H PRN PRN Reason: cough Multivitamins/Vitamin C (Multivitamin Tablet) 1 tab PO BEDTIME [facility] Last Admin: 09/22/21 20:23 Dose: 1 tab Documented By: JANENE Omeprazole (Omeprazole 20 Mg Capsule.) 20 mg PO DAILY@0630 [facility] Last Admin: 09/23/21 06:44 Dose: 20 mg Documented By: JANENE Ondansetron HCl (Ondansetron Hcl 4 Mg/2 Ml Vial) 4 mg IVPUSH Q8H PRN PRN Reason: Nausea and Vomiting Polyethylene Glycol (Polyethylene Glycol 3350 17 Gm Powd.Pack) 17 gm PO DAILY [facility] Last Admin: 09/23/21 09:57 Dose: 17 gm Documented By: ERICA Thiamine HCl (Thiamine Hcl 100 Mg Tablet) 100 mg PO DAILY [facility] Last Admin: 09/23/21 09:57 Dose: 100 mg Documented By: ERICA Labs CBC & Chem 7: 09/06/21 06:05 09/08/21 06:19 Assessment and Plan (1) Cognitive impairment: Status: Acute Plan 46-year-old female with of substance abuse presents to the hospital with confusion found to lack capacity to make medical decisions and awaiting placement Cognitive impairment suspected secondary to history of polysubstance abuse urine toxicology positive for cocaine, fentanyl, and marijuana although the patient adamantly denies using any illicit substance, her parents confirmed that she was actively using substances Neurology input appreciated, brain changes on imaging consistent with cocaine abuse per speech therapy note on August 08 patient is doing well with her ability to respond to confrontational naming OT evaluation Pych reassessed on 08/12 and report that she did not have capacity to make decisions, healthcare proxy is invoked case discussed with social services aide and occupational therapy E Coli UTI completed course of Abx DVT prophylaxis Lovenox need for inpatient due to cognitive linguistic impairment , waiting safe disposition given that she needs 24-hour observation. Family not able to care for her at home. Quality Stroke Does the patient have a stroke diagnosis?: No VTE Prior VTE?: No VTE Risk Level:: Medical - moderate - high VTE Device Contraindication: Treatment Not Indicated VTE Drug Contraindication: N/A - Med Ordered
[2021-09-23 15:36] VITALS: BP 111/72; PULSE 84; RESP 14; TEMP 36.6; O2SAT 95
[2021-09-23] MEDS: Multivitamin TABLET 1 TAB PO (21:15)
[2021-09-23 23:39] VITALS: BP 100/64; PULSE 71; RESP 18; TEMP 36.6; O2SAT 95
[2021-09-24] MEDS: Enoxaparin Sodium 40 MG/0.4 ML SYRINGE SUBCUT (06:36)
[2021-09-24] MEDS: Omeprazole 20 MG CAPSULE.DR PO (06:36)
[2021-09-24 08:00] VITALS: BP 118/78; PULSE 77; RESP 16; TEMP 36.3; O2SAT 97
--- NOTE | 2021-09-24 08:49 | MHC.CM.PN ---
SNF referrals were updated yesterday and CM will continue to follow.
[2021-09-24] MEDS: Docusate Sodium 100 MG CAPSULE PO (10:50)
[2021-09-24] MEDS: Thiamine HCL 100 MG TABLET PO (10:50)
[2021-09-24] MEDS: polyethylene glycoL 3350 17 GM POWD.PACK PO (10:50)
[2021-09-24] MEDS: Ferrous Sulfate 300 MG/5 ML LIQUID PO (10:50)
--- NOTE | 2021-09-24 12:11 | P.PNIM_ITS ---
Subjective Subjective Date of Service: 09/24/21 Interval History: Laying in bed, feels comfortable Denies any fever, chills or shortness of breath No reported other overnight events. Systemic review: No fever, chills or weakness No chest pain, palpitation No shortness of breath or coughing No abdominal pain, nausea or vomiting No urinary symptoms No any rash or wounds Physical Exam Vital Signs: Vital Signs: Last Vital Signs Temp 97.4 F 09/24/21 08:00 Pulse 77 09/24/21 08:00 Resp 16 09/24/21 08:00 BP 118/78 09/24/21 08:00 Pulse Ox 97 09/24/21 08:00 O2 Del Method 09/24/21 08:00 BMI result Body Mass Index 28.3 Const: Other: General:? alert, awake in no acute distress neck no JVD Resp:? Chest wall moving bilateral, no wheezing CVS: S1,S2,RRR GI:? abdomen soft, nontender, bowel sounds audible Skin: No rash Neuro:? motor grossly intact Objective Data Active Medications Acetaminophen (Acetaminophen 325 Mg Tablet) 650 mg PO Q6H PRN PRN Reason: Pain, Mild (Pain Scale 1-3) Benzonatate (Benzonatate 100 Mg Capsule) 200 mg PO TID PRN PRN Reason: cough Last Admin: 07/13/21 16:52 Dose: 200 mg Documented By: COTMARCIE Docusate Sodium (Docusate Sodium 100 Mg Capsule) 100 mg PO DAILY [facility] Last Admin: 09/24/21 10:50 Dose: 100 mg Documented By: SAADIA Enoxaparin Sodium (Enoxaparin Sodium 40 Mg/0.4 Ml Syringe) 40 mg SUBCUT Q24H [facility] Last Admin: 09/24/21 06:36 Dose: 40 mg Documented By: JUAN Ferrous Sulfate (Ferrous Sulfate 300 Mg/5 Ml Liquid) 300 mg PO DAILY [facility] Last Admin: 09/24/21 10:50 Dose: 300 mg Documented By: SAADIA Guaifenesin/Dextromethorphan (Guaifenesin Dm 200/20/10 Ml 10 Ml Syrup) 5 ml PO Q4H PRN PRN Reason: cough Multivitamins/Vitamin C (Multivitamin Tablet) 1 tab PO BEDTIME [facility] Last Admin: 09/23/21 21:15 Dose: 1 tab Documented By: JUAN Omeprazole (Omeprazole 20 Mg Capsule.) 20 mg PO DAILY@0630 [facility] Last Admin: 09/24/21 06:36 Dose: 20 mg Documented By: JUAN Ondansetron HCl (Ondansetron Hcl 4 Mg/2 Ml Vial) 4 mg IVPUSH Q8H PRN PRN Reason: Nausea and Vomiting Polyethylene Glycol (Polyethylene Glycol 3350 17 Gm Powd.Pack) 17 gm PO DAILY [facility] Last Admin: 09/24/21 10:50 Dose: 17 gm Documented By: SAADIA Thiamine HCl (Thiamine Hcl 100 Mg Tablet) 100 mg PO DAILY [facility] Last Admin: 09/24/21 10:50 Dose: 100 mg Documented By: SAADIA Labs CBC & Chem 7: 09/06/21 06:05 09/08/21 06:19 Assessment and Plan (1) Cognitive impairment: Status: Acute Plan 46-year-old female with of substance abuse presents to the hospital with confusion found to lack capacity to make medical decisions and awaiting placement Cognitive impairment suspected secondary to history of polysubstance abuse urine toxicology positive for cocaine, fentanyl, and marijuana although the patient adamantly denies using any illicit substance, her parents confirmed that she was actively using substances Neurology input appreciated, brain changes on imaging consistent with cocaine abuse per speech therapy note on August 08 patient is doing well with her ability to respond to confrontational naming OT evaluation Pych reassessed on 08/12 and report that she did not have capacity to make decisions, healthcare proxy is invoked case discussed with social sciences instructor and occupational therapy E Coli UTI completed course of Abx DVT prophylaxis Lovenox need for inpatient due to cognitive linguistic impairment , waiting safe disposition given that she needs 24-hour observation. Family not able to care for her at home. Quality Stroke Does the patient have a stroke diagnosis?: No VTE Prior VTE?: No VTE Risk Level:: Medical - moderate - high VTE Device Contraindication: Treatment Not Indicated VTE Drug Contraindication: N/A - Med Ordered
[2021-09-24 15:06] VITALS: BP 110/64; PULSE 73; RESP 19; TEMP 36.7; O2SAT 93
--- NOTE | 2021-09-24 15:54 | MHC.CM.PN ---
Per director Samantha Fajardo is considering patient. A ZOOM call is scheduled for Tuesday 09/26, time to be TBD. Tana will keep us informed.
[2021-09-24] MEDS: Multivitamin TABLET 1 TAB PO (21:16)
[2021-09-25] VITALS: BP 115/62; PULSE 65; RESP 18; TEMP 36.6; O2SAT 98
[2021-09-25] MEDS: Enoxaparin Sodium 40 MG/0.4 ML SYRINGE SUBCUT (05:20)
[2021-09-25] MEDS: Omeprazole 20 MG CAPSULE.DR PO (05:20)
[2021-09-25] MEDS: Docusate Sodium 100 MG CAPSULE PO (07:48)
[2021-09-25] MEDS: Ferrous Sulfate 300 MG/5 ML LIQUID PO (07:48)
[2021-09-25] MEDS: Thiamine HCL 100 MG TABLET PO (07:48)
[2021-09-25] MEDS: polyethylene glycoL 3350 17 GM POWD.PACK PO (07:48)
[2021-09-25 08:00] VITALS: BP 109/55; PULSE 84; RESP 16; TEMP 36.8; O2SAT 95
[2021-09-25 14:59] VITALS: BP 115/60; PULSE 83; RESP 18; TEMP 36.8; O2SAT 94
--- NOTE | 2021-09-25 16:34 | P.PNIM_ITS ---
Subjective Subjective Date of Service: 09/25/21 Interval History: seen and examined this morning Follow-up for placement No overnight events No specific complaints this morning Review of Systems Review of Systems: Yes all other systems are reviewed and are negative Constitutional Constitutional: Denies chills and Denies fever(s) Cardiovascular Cardiovascular: Denies chest pain, Denies palpitations and Denies dyspnea Respiratory Respiratory: Denies cough and Denies dyspnea Gastrointestinal Gastrointestinal: Denies abdominal pain Endocrine Endocrine: Denies palpitations Physical Exam Vital Signs: Vital Signs: Last Vital Signs Temp 98.3 F 09/25/21 14:59 Pulse 83 09/25/21 14:59 Resp 18 09/25/21 14:59 BP 115/60 09/25/21 14:59 Pulse Ox 94 09/25/21 14:59 O2 Del Method 09/25/21 14:59 BMI result Body Mass Index 28.3 Const: General: cooperative, comfortable, no acute distress, alert and awake Nutritional Appearance: average body habitus Eyes: Pupils: Equal, round and reactive pupils present EOM: EOMs intact bilaterally Resp: Effort & Inspection: normal respiratory effort and able to speak in complete sentences Auscultation: clear to auscultation bilaterally Cardio: Rate: regular rate Heart sounds: S1 normal heart sound present and S2 normal heart sound present GI: Inspection: No distended Palpation (GI): Soft to palpation and nontender Neuro: Cranial nerves: Yes Equal, round and reactive pupils present Extrem: Other: Able to move all 4 extremities spontaneously General: Yes no pedal edema Objective Data Active Medications Acetaminophen (Acetaminophen 325 Mg Tablet) 650 mg PO Q6H PRN PRN Reason: Pain, Mild (Pain Scale 1-3) Benzonatate (Benzonatate 100 Mg Capsule) 200 mg PO TID PRN PRN Reason: cough Last Admin: 07/13/21 16:52 Dose: 200 mg Documented By: COTEMA Docusate Sodium (Docusate Sodium 100 Mg Capsule) 100 mg PO DAILY [facility] Last Admin: 09/25/21 07:48 Dose: 100 mg Documented By: ALAN Enoxaparin Sodium (Enoxaparin Sodium 40 Mg/0.4 Ml Syringe) 40 mg SUBCUT Q24H [facility] Last Admin: 09/25/21 05:20 Dose: 40 mg Documented By: ALAN Ferrous Sulfate (Ferrous Sulfate 300 Mg/5 Ml Liquid) 300 mg PO DAILY [facility] Last Admin: 09/25/21 07:48 Dose: 300 mg Documented By: ALAN Guaifenesin/Dextromethorphan (Guaifenesin Dm 200/20/10 Ml 10 Ml Syrup) 5 ml PO Q4H PRN PRN Reason: cough Multivitamins/Vitamin C (Multivitamin Tablet) 1 tab PO BEDTIME [facility] Last Admin: 09/24/21 21:16 Dose: 1 tab Documented By: ALAN Omeprazole (Omeprazole 20 Mg Capsule.) 20 mg PO DAILY@0630 [facility] Last Admin: 09/25/21 05:20 Dose: 20 mg Documented By: ALAN Ondansetron HCl (Ondansetron Hcl 4 Mg/2 Ml Vial) 4 mg IVPUSH Q8H PRN PRN Reason: Nausea and Vomiting Polyethylene Glycol (Polyethylene Glycol 3350 17 Gm Powd.Pack) 17 gm PO DAILY [facility] Last Admin: 09/25/21 07:48 Dose: 17 gm Documented By: ALAN Thiamine HCl (Thiamine Hcl 100 Mg Tablet) 100 mg PO DAILY [facility] Last Admin: 09/25/21 07:48 Dose: 100 mg Documented By: ALAN Labs CBC & Chem 7: 09/06/21 06:05 09/08/21 06:19 Assessment and Plan (1) Cognitive impairment: Status: Acute Plan 46-year-old female with of substance abuse presents to the hospital with confusion found to lack capacity to make medical decisions and awaiting placement Cognitive impairment suspected secondary to history of polysubstance abuse urine toxicology positive for cocaine, fentanyl, and marijuana although the patient adamantly denies using any illicit substance, her parents confirmed that she was actively using substances Neurology input appreciated, brain changes on imaging consistent with cocaine abuse per speech therapy note on August 08 patient is doing well with her ability to respond to confrontational naming OT evaluation Pych reassessed on 08/12 and report that she did not have capacity to make decisions, healthcare proxy is invoked case discussed with social worker aide and occupational therapy E Coli UTI completed course of Abx DVT prophylaxis Lovenox attending - dr. [place] need for inpatient due to cognitive linguistic impairment , waiting safe disposition given that she needs 24-hour observation. Family not able to care for her at home. [facility] to meet with her next week for conside ration Quality Stroke Does the patient have a stroke diagnosis?: No VTE Prior VTE?: No VTE Risk Level:: Medical - moderate - high VTE Device Contraindication: Treatment Not Indicated VTE Drug Contraindication: N/A - Med Ordered
[2021-09-25] MEDS: Multivitamin TABLET 1 TAB PO (20:26)
[2021-09-25 23:51] VITALS: BP 95/56; PULSE 73; RESP 17; TEMP 36.2; O2SAT 94
[2021-09-26] MEDS: Omeprazole 20 MG CAPSULE.DR PO (06:01)
[2021-09-26] MEDS: Enoxaparin Sodium 40 MG/0.4 ML SYRINGE SUBCUT (06:01)
[2021-09-26 07:35] VITALS: BP 117/77; PULSE 79; RESP 18; TEMP 35.9; O2SAT 95
[2021-09-26] MEDS: Ferrous Sulfate 300 MG/5 ML LIQUID PO (10:08)
[2021-09-26] MEDS: Thiamine HCL 100 MG TABLET PO (10:08)
[2021-09-26] MEDS: Docusate Sodium 100 MG CAPSULE PO (10:08)
[2021-09-26 15:15] VITALS: BP 110/68; PULSE 83; RESP 20; TEMP 36.8; O2SAT 93
--- NOTE | 2021-09-26 16:17 | P.PNIM_ITS ---
Subjective Subjective Date of Service: 09/26/21 Interval History: seen and examined this morning follow up for placement resting in bed comfortably no specific complaints Review of Systems Review of Systems: Yes all other systems are reviewed and are negative Constitutional Constitutional: Denies chills and Denies fever(s) Cardiovascular Cardiovascular: Denies chest pain, Denies palpitations and Denies dyspnea Respiratory Respiratory: Denies cough and Denies dyspnea Gastrointestinal Gastrointestinal: Denies abdominal pain, Denies diarrhea, Denies nausea and Denies vomiting Endocrine Endocrine: Denies palpitations Physical Exam Vital Signs: Vital Signs: Last Vital Signs Temp 98.3 F 09/26/21 15:15 Pulse 83 09/26/21 15:15 Resp 20 09/26/21 15:15 BP 110/68 09/26/21 15:15 Pulse Ox 93 09/26/21 15:15 O2 Del Method 09/26/21 15:15 BMI result Body Mass Index 28.3 Const: General: cooperative, comfortable, no acute distress, alert and awake Nutritional Appearance: average body habitus Eyes: Pupils: Equal, round and reactive pupils present EOM: EOMs intact bilaterally Resp: Effort & Inspection: normal respiratory effort and able to speak in complete sentences Auscultation: clear to auscultation bilaterally Cardio: Rate: regular rate Heart sounds: S1 normal heart sound present and S2 normal heart sound present GI: Inspection: No distended Palpation (GI): Soft to palpation and nontender Neuro: Cranial nerves: Yes Equal, round and reactive pupils present Extrem: Other: Able to move all 4 extremities spontaneously General: Yes no pedal edema Objective Data Active Medications Acetaminophen (Acetaminophen 325 Mg Tablet) 650 mg PO Q6H PRN PRN Reason: Pain, Mild (Pain Scale 1-3) Benzonatate (Benzonatate 100 Mg Capsule) 200 mg PO TID PRN PRN Reason: cough Last Admin: 07/13/21 16:52 Dose: 200 mg Documented By: COTMARCIE Docusate Sodium (Docusate Sodium 100 Mg Capsule) 100 mg PO DAILY [facility] Last Admin: 09/26/21 10:08 Dose: 100 mg Documented By: TEMO Enoxaparin Sodium (Enoxaparin Sodium 40 Mg/0.4 Ml Syringe) 40 mg SUBCUT Q24H [facility] Last Admin: 09/26/21 06:01 Dose: 40 mg Documented By: DOM Ferrous Sulfate (Ferrous Sulfate 300 Mg/5 Ml Liquid) 300 mg PO DAILY [facility] Last Admin: 09/26/21 10:08 Dose: 300 mg Documented By: TEMO Guaifenesin/Dextromethorphan (Guaifenesin Dm 200/20/10 Ml 10 Ml Syrup) 5 ml PO Q4H PRN PRN Reason: cough Multivitamins/Vitamin C (Multivitamin Tablet) 1 tab PO BEDTIME [facility] Last Admin: 09/25/21 20:26 Dose: 1 tab Documented By: DOM Omeprazole (Omeprazole 20 Mg Capsule.) 20 mg PO DAILY@0630 [facility] Last Admin: 09/26/21 06:01 Dose: 20 mg Documented By: DOM Ondansetron HCl (Ondansetron Hcl 4 Mg/2 Ml Vial) 4 mg IVPUSH Q8H PRN PRN Reason: Nausea and Vomiting Polyethylene Glycol (Polyethylene Glycol 3350 17 Gm Powd.Pack) 17 gm PO DAILY [facility] Last Admin: 09/26/21 10:09 Dose: Not Given Documented By: TEMO Non-Admin Reason: Patient Refused Thiamine HCl (Thiamine Hcl 100 Mg Tablet) 100 mg PO DAILY [facility] Last Admin: 09/26/21 10:08 Dose: 100 mg Documented By: TEMO Labs CBC & Chem 7: 09/06/21 06:05 09/08/21 06:19 Assessment and Plan (1) Cognitive impairment: Status: Acute Plan 46-year-old female with of substance abuse presents to the hospital with confusion found to lack capacity to make medical decisions and awaiting placement Cognitive impairment suspected secondary to history of polysubstance abuse urine toxicology positive for cocaine, fentanyl, and marijuana although the patient adamantly denies using any illicit substance, her parents confirmed that she was actively using substances Neurology input appreciated, brain changes on imaging consistent with cocaine abuse per speech therapy note on August 08 patient is doing well with her ability to respond to confrontational naming OT evaluation Pych reassessed on 08/12 and report that she did not have capacity to make decisions, healthcare proxy is invoked case discussed with psychologist social and occupational therapy E Coli UTI completed course of Abx DVT prophylaxis Lovenox attending - dr. [place] need for inpatient due to cognitive linguistic impairment , waiting safe disposition given that she needs 24-hour observation. Family not able to care for her at home. [facility] to meet with her next week for consideration Quality Stroke Does the patient have a stroke diagnosis?: No VTE Prior VTE?: No VTE Risk Level:: Medical - moderate - high VTE Device Contraindication: Treatment Not Indicated VTE Drug Contraindication: N/A - Med Ordered
[2021-09-26] MEDS: Multivitamin TABLET 1 TAB PO (20:15)
[2021-09-27] VITALS: BP 101/60; PULSE 85; RESP 18; TEMP 36.6; O2SAT 95
[2021-09-27] MEDS: Enoxaparin Sodium 40 MG/0.4 ML SYRINGE SUBCUT (06:42)
[2021-09-27] MEDS: Omeprazole 20 MG CAPSULE.DR PO (06:42)
[2021-09-27 08:00] VITALS: BP 124/57; PULSE 81; RESP 18; TEMP 36.1; O2SAT 95
--- NOTE | 2021-09-27 10:24 | P.PNIM_ITS ---
Subjective Subjective Date of Service: 09/27/21 Review of Systems follow-up placement Denies any chest pain, shortness breath, nausea, vomiting, diarrhea Physical Exam Vital Signs: Vital Signs: Last Vital Signs Temp 96.9 F 09/27/21 08:00 Pulse 81 09/27/21 08:00 Resp 18 09/27/21 08:00 BP 124/57 L 09/27/21 08:00 Pulse Ox 95 09/27/21 08:00 O2 Del Method 09/27/21 08:00 BMI result Body Mass Index 28.3 Appearing in no acute distress lung sounds are clear to auscultation heart regular rate rhythm, clear S1, S2 positive bowel sounds, abdomen is soft, nontender neuro patient is alert Objective Data Active Medications Acetaminophen (Acetaminophen 325 Mg Tablet) 650 mg PO Q6H PRN PRN Reason: Pain, Mild (Pain Scale 1-3) Benzonatate (Benzonatate 100 Mg Capsule) 200 mg PO TID PRN PRN Reason: cough Last Admin: 07/13/21 16:52 Dose: 200 mg Documented By: ROXANA Docusate Sodium (Docusate Sodium 100 Mg Capsule) 100 mg PO DAILY [facility] Last Admin: 09/26/21 10:08 Dose: 100 mg Documented By: TEMO Enoxaparin Sodium (Enoxaparin Sodium 40 Mg/0.4 Ml Syringe) 40 mg SUBCUT Q24H [facility] Last Admin: 09/27/21 06:42 Dose: 40 mg Documented By: JAX Ferrous Sulfate (Ferrous Sulfate 300 Mg/5 Ml Liquid) 300 mg PO DAILY [facility] Last Admin: 09/26/21 10:08 Dose: 300 mg Documented By: TEMO Guaifenesin/Dextromethorphan (Guaifenesin Dm 200/20/10 Ml 10 Ml Syrup) 5 ml PO Q4H PRN PRN Reason: cough Multivitamins/Vitamin C (Multivitamin Tablet) 1 tab PO BEDTIME [facility] Last Admin: 09/26/21 20:15 Dose: 1 tab Documented By: TONO Omeprazole (Omeprazole 20 Mg Capsule.) 20 mg PO DAILY@0630 [facility] Last Admin: 09/27/21 06:42 Dose: 20 mg Documented By: JAX Ondansetron HCl (Ondansetron Hcl 4 Mg/2 Ml Vial) 4 mg IVPUSH Q8H PRN PRN Reason: Nausea and Vomiting Polyethylene Glycol (Polyethylene Glycol 3350 17 Gm Powd.Pack) 17 gm PO DAILY [facility] Last Admin: 09/26/21 10:09 Dose: Not Given Documented By: TEMO Non-Admin Reason: Patient Refused Thiamine HCl (Thiamine Hcl 100 Mg Tablet) 100 mg PO DAILY [facility] Last Admin: 09/26/21 10:08 Dose: 100 mg Documented By: TEMO Labs CBC & Chem 7: 09/06/21 06:05 09/08/21 06:19 Assessment and Plan (1) Cognitive impairment: Status: Acute Plan 46-year-old female with of substance abuse presents to the hospital with confusion found to lack capacity to make medical decisions and awaiting placement No medical changes Cognitive impairment suspected secondary to history of polysubstance abuse urine toxicology positive for cocaine, fentanyl, and marijuana although the patient adamantly denies using any illicit substance, her parents confirmed that she was actively using substances Neurology input appreciated, brain changes on imaging consistent with cocaine abuse per speech therapy note on August 08 patient is doing well with her ability to respond to confrontational naming OT evaluation Pych reassessed on 08/12 and report that she did not have capacity to make decisions, healthcare proxy is invoked case discussed with social worker assistant and occupational therapy E Coli UTI completed course of Abx DVT prophylaxis Lovenox attending - dr. [place] need for inpatient due to cognitive linguistic impairment , waiting safe disposition given that she needs 24-hour observation. Family not able to care for her at home. [facility] to meet with her next week for consideration Quality Stroke Does the patient have a stroke diagnosis?: No VTE Prior VTE?: No VTE Risk Level:: Medical - moderate - high VTE Device Contraindication: Treatment Not Indicated VTE Drug Contraindication: N/A - Med Ordered
[2021-09-27] MEDS: Ferrous Sulfate 300 MG/5 ML LIQUID PO (11:34)
[2021-09-27] MEDS: Docusate Sodium 100 MG CAPSULE PO (11:34)
[2021-09-27] MEDS: Thiamine HCL 100 MG TABLET PO (11:34)
[2021-09-27 16:00] VITALS: BP 132/72; PULSE 82; RESP 18; TEMP 37; O2SAT 96
[2021-09-27] MEDS: Multivitamin TABLET 1 TAB PO (21:14)
[2021-09-28] VITALS: BP 102/56; PULSE 80; RESP 18; TEMP 36.4; O2SAT 96
[2021-09-28] MEDS: Enoxaparin Sodium 40 MG/0.4 ML SYRINGE SUBCUT (05:32)
[2021-09-28] MEDS: Omeprazole 20 MG CAPSULE.DR PO (05:33)
[2021-09-28 07:08] LABS: Anion Gap 13 (12-20); Blood Urea Nitrogen 16 mg/dL (9-16); Calcium 9.2 mg/dL (8.4-10.2); Carbon Dioxide 24 mmol/L (22-29); Chloride 104 mmol/L (96-108); Creatinine Clr Calc Pharmacy 83.2; Estimated Glomerular Filt Rate > 60; Glucose Random 86 mg/dL (60-115); Potassium 4.6 mmol/L (3.3-5.1); Sodium 136 mmol/L (135-145)
[2021-09-28 07:45] VITALS: BP 117/76; PULSE 81; RESP 18; TEMP 36; O2SAT 95
[2021-09-28] MEDS: Ferrous Sulfate 300 MG/5 ML LIQUID PO (09:46)
[2021-09-28] MEDS: Thiamine HCL 100 MG TABLET PO (09:46)
--- NOTE | 2021-09-28 10:33 | P.PNIM_ITS ---
Subjective Subjective Date of Service: 09/28/21 Review of Systems follow-up placement Denies any chest pain, shortness breath, nausea, vomiting, diarrhea Physical Exam Vital Signs: Vital Signs: Last Vital Signs Temp 96.8 F 09/28/21 07:45 Pulse 81 09/28/21 07:45 Resp 18 09/28/21 07:45 BP 117/76 09/28/21 07:45 Pulse Ox 95 09/28/21 07:45 O2 Del Method 09/28/21 07:45 BMI result Body Mass Index 28.3 Appearing in no acute distress lung sounds are clear to auscultation heart regular rate rhythm, clear S1, S2 positive bowel sounds, abdomen is soft, nontender neuro patient is alert x3, no focal deficits Objective Data Active Medications Acetaminophen (Acetaminophen 325 Mg Tablet) 650 mg PO Q6H PRN PRN Reason: Pain, Mild (Pain Scale 1-3) Benzonatate (Benzonatate 100 Mg Capsule) 200 mg PO TID PRN PRN Reason: cough Last Admin: 07/13/21 16:52 Dose: 200 mg Documented By: ROXANA Docusate Sodium (Docusate Sodium 100 Mg Capsule) 100 mg PO DAILY [facility] Last Admin: 09/28/21 09:50 Dose: Not Given Documented By: GENIE Non-Admin Reason: Patient Refused Enoxaparin Sodium (Enoxaparin Sodium 40 Mg/0.4 Ml Syringe) 40 mg SUBCUT Q24H [facility] Last Admin: 09/28/21 05:32 Dose: 40 mg Documented By: RONALDO Ferrous Sulfate (Ferrous Sulfate 300 Mg/5 Ml Liquid) 300 mg PO DAILY [facility] Last Admin: 09/28/21 09:46 Dose: 300 mg Documented By: GENIE Guaifenesin/Dextromethorphan (Guaifenesin Dm 200/20/10 Ml 10 Ml Syrup) 5 ml PO Q4H PRN PRN Reason: cough Multivitamins/Vitamin C (Multivitamin Tablet) 1 tab PO BEDTIME [facility] Last Admin: 09/27/21 21:14 Dose: 1 tab Documented By: RONALDO Omeprazole (Omeprazole 20 Mg Capsule.) 20 mg PO DAILY@0630 [facility] Last Admin: 09/28/21 05:33 Dose: 20 mg Documented By: RONALDO Ondansetron HCl (Ondansetron Hcl 4 Mg/2 Ml Vial) 4 mg IVPUSH Q8H PRN PRN Reason: Nausea and Vomiting Polyethylene Glycol (Polyethylene Glycol 3350 17 Gm Powd.Pack) 17 gm PO DAILY [facility] Last Admin: 09/28/21 09:50 Dose: Not Given Documented By: GENIE Non-Admin Reason: Patient Refused Thiamine HCl (Thiamine Hcl 100 Mg Tablet) 100 mg PO DAILY [facility] Last Admin: 09/28/21 09:46 Dose: 100 mg Documented By: GENIE Labs CBC & Chem 7: 09/06/21 06:05 09/28/21 05:32 Labs: Laboratory Results - last 24 hr 09/28/21 05:32 Anion Gap 13 Estim Creat Clear Calc 83.2 Estimated GFR > 60 Random Glucose 86 Calcium 9.2 Assessment and Plan (1) Cognitive impairment: Status: Acute Plan 46-year-old female with of substance abuse presents to the hospital with confusion found to lack capacity to make medical decisions and awaiting placement No medical changes labs 09/28/21 WNL Cognitive impairment suspected secondary to history of polysubstance abuse urine toxicology positive for cocaine, fentanyl, and marijuana although the patient adamantly denies using any illicit substance, her parents confirmed that she was actively using substances Neurology input appreciated, brain changes on imaging consistent with cocaine abuse per speech therapy note on August 08 patient is doing well with her ability to respond to confrontational naming OT evaluation Pych reassessed on 08/12 and report that she did not have capacity to make decisions, healthcare proxy is invoked case discussed with social science manager and occupational therapy E Coli UTI completed course of Abx DVT prophylaxis Lovenox attending - dr. [place] need for inpatient due to cognitive linguistic impairment , waiting safe disposition given that she needs 24-hour observation. Family not able to care for her at home. [facility] to meet with her next week for consideration Quality Stroke Does the patient have a stroke diagnosis?: No VTE Prior VTE?: No VTE Risk Level:: Medical - moderate - high VTE Device Contraindication: Treatment Not Indicated VTE Drug Contraindication: N/A - Med Ordered
[2021-09-28 15:59] VITALS: BP 103/64; PULSE 88; RESP 18; TEMP 36.3; O2SAT 98
[2021-09-28] MEDS: Multivitamin TABLET 1 TAB PO (19:56)
[2021-09-29] VITALS: BP 109/63; PULSE 82; RESP 16; TEMP 36.1; O2SAT 94
[2021-09-29] MEDS: Omeprazole 20 MG CAPSULE.DR PO (05:40)
[2021-09-29] MEDS: Enoxaparin Sodium 40 MG/0.4 ML SYRINGE SUBCUT (05:40)
[2021-09-29 07:44] VITALS: BP 111/72; PULSE 72; RESP 16; TEMP 36.7; O2SAT 95
--- NOTE | 2021-09-29 08:36 | P.PNIM_ITS ---
Subjective Subjective Date of Service: 09/29/21 Review of Systems follow-up placement Denies any chest pain, shortness breath, nausea, vomiting, diarrhea Physical Exam Vital Signs: Vital Signs: Last Vital Signs Temp 98.0 F 09/29/21 07:44 Pulse 72 09/29/21 07:44 Resp 16 09/29/21 07:44 BP 111/72 09/29/21 07:44 Pulse Ox 95 09/29/21 07:44 O2 Del Method 09/29/21 07:44 BMI result Body Mass Index 28.3 Appearing in no acute distress lung sounds are clear to auscultation heart regular rate rhythm, clear S1, S2 positive bowel sounds, abdomen is soft, nontender neuro patient is alert x3, no focal deficits Objective Data Active Medications Acetaminophen (Acetaminophen 325 Mg Tablet) 650 mg PO Q6H PRN PRN Reason: Pain, Mild (Pain Scale 1-3) Benzonatate (Benzonatate 100 Mg Capsule) 200 mg PO TID PRN PRN Reason: cough Last Admin: 07/13/21 16:52 Dose: 200 mg Documented By: ROXANA Docusate Sodium (Docusate Sodium 100 Mg Capsule) 100 mg PO DAILY [facility] Last Admin: 09/28/21 09:50 Dose: Not Given Documented By: GENIE Non-Admin Reason: Patient Refused Enoxaparin Sodium (Enoxaparin Sodium 40 Mg/0.4 Ml Syringe) 40 mg SUBCUT Q24H [facility] Last Admin: 09/29/21 05:40 Dose: 40 mg Documented By: BALJEET Ferrous Sulfate (Ferrous Sulfate 300 Mg/5 Ml Liquid) 300 mg PO DAILY [facility] Last Admin: 09/28/21 09:46 Dose: 300 mg Documented By: GENIE Guaifenesin/Dextromethorphan (Guaifenesin Dm 200/20/10 Ml 10 Ml Syrup) 5 ml PO Q4H PRN PRN Reason: cough Multivitamins/Vitamin C (Multivitamin Tablet) 1 tab PO BEDTIME [facility] Last Admin: 09/28/21 19:56 Dose: 1 tab Documented By: BALJEET Omeprazole (Omeprazole 20 Mg Capsule.) 20 mg PO DAILY@0630 [facility] Last Admin: 09/29/21 05:40 Dose: 20 mg Documented By: BALJEET Ondansetron HCl (Ondansetron Hcl 4 Mg/2 Ml Vial) 4 mg IVPUSH Q8H PRN PRN Reason: Nausea and Vomiting Polyethylene Glycol (Polyethylene Glycol 3350 17 Gm Powd.Pack) 17 gm PO DAILY [facility] Last Admin: 09/28/21 09:50 Dose: Not Given Documented By: GENIE Non-Admin Reason: Patient Refused Thiamine HCl (Thiamine Hcl 100 Mg Tablet) 100 mg PO DAILY [facility] Last Admin: 09/28/21 09:46 Dose: 100 mg Documented By: GENIE Labs CBC & Chem 7: 09/06/21 06:05 09/28/21 05:32 Assessment and Plan (1) Cognitive impairment: Status: Acute Plan 46-year-old female with of substance abuse presents to the hospital with confusion found to lack capacity to make medical decisions and awaiting placement No medical changes labs 09/28/21 WNL Cognitive impairment suspected secondary to history of polysubstance abuse urine toxicology positive for cocaine, fentanyl, and marijuana although the patient adamantly denies using any illicit substance, her parents confirmed that she was actively using substances Neurology input appreciated, brain changes on imaging consistent with cocaine abuse per speech therapy note on August 08 patient is doing well with her ability to respond to confrontational naming OT evaluation Pych reassessed on 08/12 and report that she did not have capacity to make decisions, healthcare proxy is invoked case discussed with social media community manager and occupational therapy E Coli UTI completed course of Abx DVT prophylaxis Lovenox attending - dr. [place] need for inpatient due to cognitive linguistic impairment , waiting safe disposition given that she needs 24-hour observation. Family not able to care f or her at home. [facility] to meet with her next week for consideration Quality Stroke Does the patient have a stroke diagnosis?: No VTE Prior VTE?: No VTE Risk Level:: Medical - moderate - high VTE Device Contraindication: Treatment Not Indicated VTE Drug Contraindication: N/A - Med Ordered
[2021-09-29] MEDS: Docusate Sodium 100 MG CAPSULE PO (09:56)
[2021-09-29] MEDS: Ferrous Sulfate 300 MG/5 ML LIQUID PO (09:56)
[2021-09-29] MEDS: Thiamine HCL 100 MG TABLET PO (09:56)
--- NOTE | 2021-09-29 12:13 | MHC.CM.PN ---
Left VM for Samantha Crockett re: Placement for patient. Awaiting return phone call.
[2021-09-29 15:55] VITALS: BP 117/70; PULSE 81; RESP 18; TEMP 36.2; O2SAT 98
[2021-09-29] MEDS: Multivitamin TABLET 1 TAB PO (21:19)
[2021-09-30] VITALS: BP 103/67; PULSE 94; RESP 18; TEMP 36.3; O2SAT 97
[2021-09-30] MEDS: Enoxaparin Sodium 40 MG/0.4 ML SYRINGE SUBCUT (06:27)
[2021-09-30] MEDS: Omeprazole 20 MG CAPSULE.DR PO (06:27)
[2021-09-30] MEDS: Ferrous Sulfate 300 MG/5 ML LIQUID PO (07:29)
[2021-09-30] MEDS: Docusate Sodium 100 MG CAPSULE PO (07:29)
[2021-09-30] MEDS: Thiamine HCL 100 MG TABLET PO (07:29)
--- NOTE | 2021-09-30 08:04 | HO.PM.IMPN ---
Subjective Subjective Date of Service: 09/30/21 Review of Systems follow-up placement Denies any chest pain, shortness breath, nausea, vomiting, diarrhea Physical Exam Vital Signs: Vital Signs: Last Vital Signs Temp 97.3 F 09/30/21 00:00 Pulse 94 09/30/21 00:00 Resp 18 09/30/21 00:00 BP 103/67 09/30/21 00:00 Pulse Ox 97 09/30/21 00:00 O2 Del Method 09/30/21 00:00 BMI result Body Mass Index 28.3 Appearing in no acute distress lung sounds are clear to auscultation heart regular rate rhythm, clear S1, S2 positive bowel sounds, abdomen is soft, nontender neuro patient is alert x3, no focal deficits Objective Data Active Medications Acetaminophen (Acetaminophen 325 Mg Tablet) 650 mg PO Q6H PRN PRN Reason: Pain, Mild (Pain Scale 1-3) Benzonatate (Benzonatate 100 Mg Capsule) 200 mg PO TID PRN PRN Reason: cough Last Admin: 07/13/21 16:52 Dose: 200 mg Documented By: ROXANA Docusate Sodium (Docusate Sodium 100 Mg Capsule) 100 mg PO DAILY [facility] Last Admin: 09/30/21 07:29 Dose: 100 mg Documented By: EVERARDO Enoxaparin Sodium (Enoxaparin Sodium 40 Mg/0.4 Ml Syringe) 40 mg SUBCUT Q24H [facility] Last Admin: 09/30/21 06:27 Dose: 40 mg Documented By: BALJEET Ferrous Sulfate (Ferrous Sulfate 300 Mg/5 Ml Liquid) 300 mg PO DAILY [facility] Last Admin: 09/30/21 07:29 Dose: 300 mg Documented By: EVERARDO Guaifenesin/Dextromethorphan (Guaifenesin Dm 200/20/10 Ml 10 Ml Syrup) 5 ml PO Q4H PRN PRN Reason: cough Multivitamins/Vitamin C (Multivitamin Tablet) 1 tab PO BEDTIME [facility] Last Admin: 09/29/21 21:19 Dose: 1 tab Documented By: BALJEET Omeprazole (Omeprazole 20 Mg Capsule.) 20 mg PO DAILY@0630 [facility] Last Admin: 09/30/21 06:27 Dose: 20 mg Documented By: BALJEET Ondansetron HCl (Ondansetron Hcl 4 Mg/2 Ml Vial) 4 mg IVPUSH Q8H PRN PRN Reason: Nausea and Vomiting Polyethylene Glycol (Polyethylene Glycol 3350 17 Gm Powd.Pack) 17 gm PO DAILY [facility] Last Admin: 09/30/21 07:29 Dose: Not Given Documented By: EVERARDO Non-Admin Reason: Patient Refused Thiamine HCl (Thiamine Hcl 100 Mg Tablet) 100 mg PO DAILY [facility] Last Admin: 09/30/21 07:29 Dose: 100 mg Documented By: EVERARDO Labs CBC & Chem 7: 09/06/21 06:05 09/28/21 05:32 Assessment and Plan (1) Cognitive impairment: Status: Acute Plan 46-year-old female with of substance abuse presents to the hospital with confusion found to lack capacity to make medical decisions and awaiting placement No medical changes labs 09/28/21 WNL Cognitive impairment suspected secondary to history of polysubstance abuse urine toxicology positive for cocaine, fentanyl, and marijuana although the patient adamantly denies using any illicit substance, her parents confirmed that she was actively using substances Neurology input appreciated, brain changes on imaging consistent with cocaine abuse per speech therapy note on August 08 patient is doing well with her ability to respond to confrontational naming OT evaluation Pych reassessed on 08/12 and report that she did not have capacity to make decisions, healthcare proxy is invoked case discussed with protective services social worker and occupational therapy E Coli UTI completed course of Abx DVT prophylaxis Lovenox attending - dr. Gomez need for inpatient due to cognitive linguistic impairment , waiting safe disposition given that she needs 24-hour observation. Family not able to care for her at home. [facility] to meet with her next week for consideration Quality Stroke Does the patient have a stroke diagnosis?: No VTE Prior VTE?: No VTE Risk Level:: Medical - moderate - high VTE Device Contraindication: Treatment Not Indicated VTE Drug Contraindication: N/A - Med Ordered
[2021-09-30 08:05] VITALS: BP 117/82; PULSE 84; RESP 15; TEMP 36.5; O2SAT 96
--- NOTE | 2021-09-30 13:45 | MHC.CM.PN ---
EMR REVIEWED, CM ATTEMPTED TO CONTACT MILLER PORTER AT [facility] AT 1:32PM, NO ANSWER AND MESSAGE LEFT, CM ALSO ATTEMPTED TO CONTACT ADMISSIONS AT [facility] AT 1:40PM PT WILL 2WKS OUT FROM 2ND COVID VACCINE, NO ANSWER AND MESSAGE LEFT W/CM CONTACT INFO. CM WILL CONT TO FOLLOW REFERRALS.
[2021-09-30 15:50] VITALS: BP 117/70; PULSE 74; RESP 16; TEMP 36.4; O2SAT 95
[2021-09-30] MEDS: Multivitamin TABLET 1 TAB PO (21:46)
[2021-09-30 23:50] VITALS: RESP 14
[2021-10-01] MEDS: Enoxaparin Sodium 40 MG/0.4 ML SYRINGE SUBCUT (06:16)
[2021-10-01] MEDS: Omeprazole 20 MG CAPSULE.DR PO (06:16)
[2021-10-01 07:22] VITALS: BP 118/58; PULSE 73; RESP 16; TEMP 36.8; O2SAT 95
[2021-10-01] MEDS: Docusate Sodium 100 MG CAPSULE PO (08:01)
[2021-10-01] MEDS: Thiamine HCL 100 MG TABLET PO (08:01)
[2021-10-01] MEDS: Ferrous Sulfate 300 MG/5 ML LIQUID PO (08:01)
[2021-10-01] MEDS: polyethylene glycoL 3350 17 GM POWD.PACK PO (08:02)
--- NOTE | 2021-10-01 11:09 | P.PNIM_ITS ---
Subjective Subjective Date of Service: 10/01/21 Interval History: follow up for placement, no acute events overnight, denies chest pain, shortness of breath,no nausea ,vomiting, diarrhea, no fever, no chills. Review of Systems Review of Systems: Yes all other systems are reviewed and are negative Physical Exam Vital Signs: Vital Signs: Last Vital Signs Temp 98.3 F 10/01/21 07:22 Pulse 73 10/01/21 07:22 Resp 16 10/01/21 07:22 BP 118/58 L 10/01/21 07:22 Pulse Ox 95 10/01/21 07:22 O2 Del Method 10/01/21 07:22 BMI result Body Mass Index 28.3 Const: Other: General: Resting comfortably no acute distress Resp:? CTA bilateral CVS: S1,S2,RRR GI: +BS, NT, no distention Skin: No rash Neuro:? motor grossly intact Psych: questionable insight ? Objective Data Active Medications Acetaminophen (Acetaminophen 325 Mg Tablet) 650 mg PO Q6H PRN PRN Reason: Pain, Mild (Pain Scale 1-3) Benzonatate (Benzonatate 100 Mg Capsule) 200 mg PO TID PRN PRN Reason: cough Last Admin: 07/13/21 16:52 Dose: 200 mg Documented By: COTMARCIE Docusate Sodium (Docusate Sodium 100 Mg Capsule) 100 mg PO DAILY [facility] Last Admin: 10/01/21 08:01 Dose: 100 mg Documented By: SAADIA Enoxaparin Sodium (Enoxaparin Sodium 40 Mg/0.4 Ml Syringe) 40 mg SUBCUT Q24H [facility] Last Admin: 10/01/21 06:16 Dose: 40 mg Documented By: JUAN Ferrous Sulfate (Ferrous Sulfate 300 Mg/5 Ml Liquid) 300 mg PO DAILY [facility] Last Admin: 10/01/21 08:01 Dose: 300 mg Documented By: SAADIA Guaifenesin/Dextromethorphan (Guaifenesin Dm 200/20/10 Ml 10 Ml Syrup) 5 ml PO Q4H PRN PRN Reason: cough Multivitamins/Vitamin C (Multivitamin Tablet) 1 tab PO BEDTIME [facility] Last Admin: 09/30/21 21:46 Dose: 1 tab Documented By: JUAN Omeprazole (Omeprazole 20 Mg Capsule.) 20 mg PO DAILY@0630 [facility] Last Admin: 10/01/21 06:16 Dose: 20 mg Documented By: JUAN Ondansetron HCl (Ondansetron Hcl 4 Mg/2 Ml Vial) 4 mg IVPUSH Q8H PRN PRN Reason: Nausea and Vomiting Polyethylene Glycol (Polyethylene Glycol 3350 17 Gm Powd.Pack) 17 gm PO DAILY [facility] Last Admin: 10/01/21 08:02 Dose: 17 gm Documented By: SAADIA Thiamine HCl (Thiamine Hcl 100 Mg Tablet) 100 mg PO DAILY [facility] Last Admin: 10/01/21 08:01 Dose: 100 mg Documented By: SAADIA Labs CBC & Chem 7: 09/06/21 06:05 09/28/21 05:32 Assessment and Plan (1) Cognitive impairment: Status: Acute Plan 46-year-old female with of substance abuse presents to the hospital with confusion found to lack capacity to make medical decisions and awaiting placement no acute medical changes in last 24 hours [facility] 09/28/21 WNL Cognitive impairment suspected secondary to history of polysubstance abuse urine toxicology positive for cocaine, fentanyl, and marijuana although the patient adamantly denies using any illicit substance, her parents confirmed that she was actively using substances Neurology input appreciated, brain changes on imaging consistent with cocaine abuse per speech therapy note on August 08 patient is doing well with her ability to respond to confrontational naming OT evaluation Pych reassessed on 08/12 and report that she did not have capacity to make decisions, healthcare proxy is invoked case discussed with foster care social worker and occupational therapy E Coli UTI completed course of Abx DVT prophylaxis Lovenox need for inpatient due to cognitive linguistic impairment , waiting safe disposition given that she needs 24-hour observation. Family not able to care for her at home. [facility] to meet with her next week for consideration Quality Stroke Does the patient have a stroke diagnosis?: No VTE Prior VTE?: No VTE Risk Level:: Medical - moderate - high VTE Device Contraindication: Treatment Not Indicated VTE Drug Contraindication: N/A - Med Ordered
[2021-10-01 15:57] VITALS: BP 105/62; PULSE 80; RESP 18; TEMP 36.9; O2SAT 96
[2021-10-01] MEDS: Multivitamin TABLET 1 TAB PO (21:19)
[2021-10-02] VITALS: BP 98/50; PULSE 75; RESP 18; TEMP 36.6; O2SAT 95
[2021-10-02] MEDS: Omeprazole 20 MG CAPSULE.DR PO (05:46)
[2021-10-02] MEDS: Enoxaparin Sodium 40 MG/0.4 ML SYRINGE SUBCUT (05:47)
[2021-10-02] MEDS: polyethylene glycoL 3350 17 GM POWD.PACK PO (07:21)
[2021-10-02] MEDS: Thiamine HCL 100 MG TABLET PO (07:21)
[2021-10-02] MEDS: Docusate Sodium 100 MG CAPSULE PO (07:22)
[2021-10-02] MEDS: Ferrous Sulfate 300 MG/5 ML LIQUID PO (07:22)
[2021-10-02 07:36] VITALS: BP 123/78; PULSE 75; RESP 18; TEMP 36; O2SAT 99
--- NOTE | 2021-10-02 12:40 | HO.PM.IMPN ---
Subjective Subjective Date of Service: 10/02/21 Interval History: Follow-up for placement Review of Systems denies any new complaints- denies chest pain or shortness of breath or abdominal pain or fever chills Physical Exam Vital Signs: Vital Signs: Last Vital Signs Temp 96.8 F 10/02/21 07:36 Pulse 75 10/02/21 07:36 Resp 18 10/02/21 07:36 BP 123/78 10/02/21 07:36 Pulse Ox 99 10/02/21 07:36 O2 Del Method 10/02/21 07:36 BMI result Body Mass Index 28.3 General: ? Resting comfortably no acute distress Resp:? CTA bilateral CVS: S1,S2,RRR GI: +BS, NT, no distention Skin: No rash Neuro:? motor grossly intact Psych:? questionable insight Objective Data Active Medications Acetaminophen (Acetaminophen 325 Mg Tablet) 650 mg PO Q6H PRN PRN Reason: Pain, Mild (Pain Scale 1-3) Benzonatate (Benzonatate 100 Mg Capsule) 200 mg PO TID PRN PRN Reason: cough Last Admin: 07/13/21 16:52 Dose: 200 mg Documented By: ROXANA Docusate Sodium (Docusate Sodium 100 Mg Capsule) 100 mg PO DAILY [facility] Last Admin: 10/02/21 07:22 Dose: 100 mg Documented By: SAADIA Enoxaparin Sodium (Enoxaparin Sodium 40 Mg/0.4 Ml Syringe) 40 mg SUBCUT Q24H [facility] Last Admin: 10/02/21 05:47 Dose: 40 mg Documented By: JUAN Ferrous Sulfate (Ferrous Sulfate 300 Mg/5 Ml Liquid) 300 mg PO DAILY [facility] Last Admin: 10/02/21 07:22 Dose: 300 mg Documented By: SAADIA Guaifenesin/Dextromethorphan (Guaifenesin Dm 200/20/10 Ml 10 Ml Syrup) 5 ml PO Q4H PRN PRN Reason: cough Multivitamins/Vitamin C (Multivitamin Tablet) 1 tab PO BEDTIME [facility] Last Admin: 10/01/21 21:19 Dose: 1 tab Documented By: JUAN Omeprazole (Omeprazole 20 Mg Capsule.) 20 mg PO DAILY@0630 [facility] Last Admin: 10/02/21 05:46 Dose: 20 mg Documented By: JUAN Ondansetron HCl (Ondansetron Hcl 4 Mg/2 Ml Vial) 4 mg IVPUSH Q8H PRN PRN Reason: Nausea and Vomiting Polyethylene Glycol (Polyethylene Glycol 3350 17 Gm Powd.Pack) 17 gm PO DAILY [facility] Last Admin: 10/02/21 07:21 Dose: 17 gm Documented By: SAADIA Thiamine HCl (Thiamine Hcl 100 Mg Tablet) 100 mg PO DAILY [facility] Last Admin: 10/02/21 07:21 Dose: 100 mg Documented By: SAADIA Labs CBC & Chem 7: 09/06/21 06:05 09/28/21 05:32 Assessment and Plan (1) Cognitive impairment: Status: Acute Plan 46-year-old female with of substance abuse presents to the hospital with confusion found to lack capacity to make medical decisions and awaiting placement no acute medical changes in last 24 hours bmp? 09/28/21 WNL Cognitive impairment suspected secondary to history of polysubstance abuse urine toxicology positive for cocaine, fentanyl, and marijuana although the patient adamantly denies using any illicit substance, her parents confirmed that she was actively using substances Neurology input appreciated, brain changes on imaging consistent with cocaine abuse per speech therapy note on August 08 patient is doing well with her ability to respond to confrontational naming OT evaluation Pych reassessed on 08/12 and? report that she did not have capacity to make decisions, healthcare proxy is invoked case discussed with social worker palliative care and occupational therapy E Coli UTI completed course of Abx DVT prophylaxis Lovenox need for inpatient due to cognitive linguistic impairment , waiting safe disposition given that she needs 24-hour observation. Family not able to care for her at home. [facility] to meet with her next week for consideration. Quality Stroke Does the patient have a stroke diagnosis?: No VTE Prior VTE?: No VTE Risk Level:: Medical - moderate - high VTE Device Contraindication: Treatment Not Indicated VTE Drug Contraindication: N/A - Med Ordered
--- NOTE | 2021-10-02 15:57 | MHC.CM.PN ---
CLINICALS, HCP, FACE SHEET FAXED TO CODEY HESS ([facility]) @ [phone]. PATIENT AWARE AND IN AGREEMENT.
[2021-10-02 16:13] VITALS: BP 115/62; PULSE 90; RESP 18; TEMP 37; O2SAT 97
[2021-10-02] MEDS: Multivitamin TABLET 1 TAB PO (21:09)
[2021-10-02 23:52] VITALS: BP 117/57; PULSE 84; RESP 18; TEMP 36.1; O2SAT 94
[2021-10-03] MEDS: Enoxaparin Sodium 40 MG/0.4 ML SYRINGE SUBCUT (06:02)
[2021-10-03] MEDS: Omeprazole 20 MG CAPSULE.DR PO (06:02)
[2021-10-03 08:00] VITALS: BP 106/74; PULSE 77; RESP 18; TEMP 36.8; O2SAT 96
[2021-10-03] MEDS: Ferrous Sulfate 300 MG/5 ML LIQUID PO (08:40)
[2021-10-03] MEDS: Docusate Sodium 100 MG CAPSULE PO (08:40)
[2021-10-03] MEDS: Thiamine HCL 100 MG TABLET PO (08:40)
--- NOTE | 2021-10-03 10:09 | MHC.CM.PN ---
Left VM to F/U with [facility]. Awaiting return phone call.
[2021-10-03 15:33] VITALS: BP 124/66; PULSE 85; RESP 18; TEMP 37.3; O2SAT 95
--- NOTE | 2021-10-03 16:18 | HO.PM.IMPN ---
Subjective Subjective Date of Service: 10/03/21 Interval History: Follow-up for placement Review of Systems ?denies any new complaints- denies chest pain or shortness of breath or abdominal pain or fever chills Physical Exam Vital Signs: Vital Signs: Last Vital Signs Temp 99.2 F 10/03/21 15:33 Pulse 85 10/03/21 15:33 Resp 18 10/03/21 15:33 BP 124/66 10/03/21 15:33 Pulse Ox 95 10/03/21 15:33 O2 Del Method 10/03/21 15:33 BMI result Body Mass Index 28.3 General: ? Resting comfortably no acute distress Resp:? CTA bilateral CVS: S1,S2,RRR GI: +BS, NT, no distention Skin: No rash Neuro:? motor grossly intact Psych:? questionable insight Objective Data Active Medications Acetaminophen (Acetaminophen 325 Mg Tablet) 650 mg PO Q6H PRN PRN Reason: Pain, Mild (Pain Scale 1-3) Benzonatate (Benzonatate 100 Mg Capsule) 200 mg PO TID PRN PRN Reason: cough Last Admin: 07/13/21 16:52 Dose: 200 mg Documented By: ROXANA Docusate Sodium (Docusate Sodium 100 Mg Capsule) 100 mg PO DAILY [facility] Last Admin: 10/03/21 08:40 Dose: 100 mg Documented By: LINDA Enoxaparin Sodium (Enoxaparin Sodium 40 Mg/0.4 Ml Syringe) 40 mg SUBCUT Q24H [facility] Last Admin: 10/03/21 06:02 Dose: 40 mg Documented By: SAMINA Ferrous Sulfate (Ferrous Sulfate 300 Mg/5 Ml Liquid) 300 mg PO DAILY [facility] Last Admin: 10/03/21 08:40 Dose: 300 mg Documented By: LINDA Guaifenesin/Dextromethorphan (Guaifenesin Dm 200/20/10 Ml 10 Ml Syrup) 5 ml PO Q4H PRN PRN Reason: cough Multivitamins/Vitamin C (Multivitamin Tablet) 1 tab PO BEDTIME [facility] Last Admin: 10/02/21 21:09 Dose: 1 tab Documented By: BETZY Omeprazole (Omeprazole 20 Mg Jovani.) 20 mg PO DAILY@0630 [facility] Last Admin: 10/03/21 06:02 Dose: 20 mg Documented By: SAMINA Ondansetron HCl (Ondansetron Hcl 4 Mg/2 Ml Vial) 4 mg IVPUSH Q8H PRN PRN Reason: Nausea and Vomiting Polyethylene Glycol (Polyethylene Glycol 3350 17 Gm Powd.Pack) 17 gm PO DAILY [facility] Last Admin: 10/03/21 08:40 Dose: Not Given Documented By: LINDA Non-Admin Reason: Patient Refused Thiamine HCl (Thiamine Hcl 100 Mg Tablet) 100 mg PO DAILY [facility] Last Admin: 10/03/21 08:40 Dose: 100 mg Documented By: LINDA Labs CBC & Chem 7: 09/06/21 06:05 09/28/21 05:32 Assessment and Plan (1) Cognitive impairment: Status: Acute Plan 46-year-old female with of substance abuse presents to the hospital with confusion found to lack capacity to make medical decisions and awaiting placement no acute medical changes in last 24 hours bmp? 09/28/21 WNL Cognitive impairment suspected secondary to history of polysubstance abuse urine toxicology positive for cocaine, fentanyl, and marijuana although the patient adamantly denies using any illicit substance, her parents confirmed that she was actively using substances Neurology input appreciated, brain changes on imaging consistent with cocaine abuse per speech therapy note on August 08 patient is doing well with her ability to respond to confrontational naming OT evaluation Pych reassessed on 08/12 and? report that she did not have capacity to make decisions, healthcare proxy is invoked case discussed with professor of social work and occupational therapy E Coli UTI completed course of Abx DVT prophylaxis Lovenox need for inpatient due to cognitive linguistic impairment , waiting safe disposition given that she needs 24-hour observation. Family not able to care for her at home. [facility] to meet with her next week for consideration. Quality Stroke Does the patient have a stroke diagnosis?: No VTE Prior VTE?: No VTE Risk Level:: Medical - moderate - high VTE Device Contraindication: Treatment Not Indicated VTE Drug Contraindication: N/A - Med Ordered
[2021-10-03] MEDS: Multivitamin TABLET 1 TAB PO (20:26)
[2021-10-03 23:33] VITALS: BP 106/56; PULSE 80; RESP 17; TEMP 36.5; O2SAT 95
[2021-10-04] MEDS: Omeprazole 20 MG CAPSULE.DR PO (06:07)
[2021-10-04] MEDS: Enoxaparin Sodium 40 MG/0.4 ML SYRINGE SUBCUT (06:07)
[2021-10-04] MEDS: Docusate Sodium 100 MG CAPSULE PO (07:30)
[2021-10-04] MEDS: Ferrous Sulfate 300 MG/5 ML LIQUID PO (07:30)
[2021-10-04] MEDS: Thiamine HCL 100 MG TABLET PO (07:30)
[2021-10-04] MEDS: polyethylene glycoL 3350 17 GM POWD.PACK PO (07:30)
[2021-10-04 08:00] VITALS: BP 121/74; PULSE 74; RESP 16; TEMP 36.4; O2SAT 96
--- NOTE | 2021-10-04 11:38 | P.PNIM_ITS ---
Subjective Subjective Date of Service: 10/04/21 Interval History: Follow-up for placement Review of Systems no new events overnight Physical Exam Vital Signs: Vital Signs: Last Vital Signs Temp 97.6 F 10/04/21 08:00 Pulse 74 10/04/21 08:00 Resp 16 10/04/21 08:00 BP 121/74 10/04/21 08:00 Pulse Ox 96 10/04/21 08:00 O2 Del Method 10/04/21 08:00 BMI result Body Mass Index 28.3 General: ? Resting comfortably no acute distress Resp:? CTA bilateral CVS: S1,S2,RRR GI: +BS, NT, no distention Skin: No rash Neuro:? motor grossly intact Psych:? questionable insight Objective Data Active Medications Acetaminophen (Acetaminophen 325 Mg Tablet) 650 mg PO Q6H PRN PRN Reason: Pain, Mild (Pain Scale 1-3) Benzonatate (Benzonatate 100 Mg Capsule) 200 mg PO TID PRN PRN Reason: cough Last Admin: 07/13/21 16:52 Dose: 200 mg Documented By: ROXANA Docusate Sodium (Docusate Sodium 100 Mg Capsule) 100 mg PO DAILY [facility] Last Admin: 10/04/21 07:30 Dose: 100 mg Documented By: SAADIA Enoxaparin Sodium (Enoxaparin Sodium 40 Mg/0.4 Ml Syringe) 40 mg SUBCUT Q24H [facility] Last Admin: 10/04/21 06:07 Dose: 40 mg Documented By: DOM Ferrous Sulfate (Ferrous Sulfate 300 Mg/5 Ml Liquid) 300 mg PO DAILY [facility] Last Admin: 10/04/21 07:30 Dose: 300 mg Documented By: SAADIA Guaifenesin/Dextromethorphan (Guaifenesin Dm 200/20/10 Ml 10 Ml Syrup) 5 ml PO Q4H PRN PRN Reason: cough Multivitamins/Vitamin C (Multivitamin Tablet) 1 tab PO BEDTIME [facility] Last Admin: 10/03/21 20:26 Dose: 1 tab Documented By: DOM Omeprazole (Omeprazole 20 Mg Capsule.) 20 mg PO DAILY@0630 [facility] Last Admin: 10/04/21 06:07 Dose: 20 mg Documented By: DOM Ondansetron HCl (Ondansetron Hcl 4 Mg/2 Ml Vial) 4 mg IVPUSH Q8H PRN PRN Reason: Nausea and Vomiting Polyethylene Glycol (Polyethylene Glycol 3350 17 Gm Powd.Pack) 17 gm PO DAILY [facility] Last Admin: 10/04/21 07:30 Dose: 17 gm Documented By: SAADIA Thiamine HCl (Thiamine Hcl 100 Mg Tablet) 100 mg PO DAILY [facility] Last Admin: 10/04/21 07:30 Dose: 100 mg Documented By: SAADIA Labs CBC & Chem 7: 09/06/21 06:05 09/28/21 05:32 Assessment and Plan (1) Cognitive impairment: Status: Acute Plan 46-year-old female with of substance abuse presents to the hospital with confusion found to lack capacity to make medical decisions and awaiting placement no acute medical changes in last 24 hours bmp? 09/28/21 WNL Cognitive impairment suspected secondary to history of polysubstance abuse urine toxicology positive for cocaine, fentanyl, and marijuana although the patient adamantly denies using any illicit substance, her parents confirmed that she was actively using substances Neurology input appreciated, brain changes on imaging consistent with cocaine abuse per speech therapy note on August 08 patient is doing well with her ability to respond to confrontational naming OT evaluation Pych reassessed on 08/12 and? report that she did not have capacity to make decisions, healthcare proxy is invoked case discussed with social media assistant and occupational therapy E Coli UTI completed course of Abx DVT prophylaxis Lovenox need for inpatient due to cognitive linguistic impairment , waiting safe disposition given that she needs 24-hour observation. Family not able to care fo r her at home. [facility] to meet with her next week for consideration. Quality Stroke Does the patient have a stroke diagnosis?: No VTE Prior VTE?: No VTE Risk Level:: Medical - moderate - high VTE Device Contraindication: Treatment Not Indicated VTE Drug Contraindication: N/A - Med Ordered
[2021-10-04 15:41] VITALS: BP 116/67; PULSE 84; RESP 17; TEMP 36.2; O2SAT 94
[2021-10-04] MEDS: Multivitamin TABLET 1 TAB PO (19:08)
[2021-10-04 23:27] VITALS: BP 101/62; PULSE 85; RESP 16; TEMP 37; O2SAT 95
[2021-10-05] MEDS: Enoxaparin Sodium 40 MG/0.4 ML SYRINGE SUBCUT (05:47)
[2021-10-05] MEDS: Omeprazole 20 MG CAPSULE.DR PO (05:48)
[2021-10-05 07:56] VITALS: BP 122/74; PULSE 81; RESP 18; TEMP 36.7; O2SAT 96
--- NOTE | 2021-10-05 09:17 | P.PNIM_ITS ---
Subjective Subjective Date of Service: 10/05/21 Interval History: Follow-up for placement Review of Systems denies any complaints. sitting comfortably and watching TV. Physical Exam Vital Signs: Vital Signs: Last Vital Signs Temp 98.1 F 10/05/21 07:56 Pulse 81 10/05/21 07:56 Resp 18 10/05/21 07:56 BP 122/74 10/05/21 07:56 Pulse Ox 96 10/05/21 07:56 O2 Del Method 10/05/21 07:56 BMI result Body Mass Index 28.3 General: ? Resting comfortably no acute distress Resp:? CTA bilateral CVS: S1,S2,RRR GI: +BS, NT, no distention Skin: No rash Neuro:? motor grossly intact Psych:? questionable insight Objective Data Active Medications Acetaminophen (Acetaminophen 325 Mg Tablet) 650 mg PO Q6H PRN PRN Reason: Pain, Mild (Pain Scale 1-3) Benzonatate (Benzonatate 100 Mg Capsule) 200 mg PO TID PRN PRN Reason: cough Last Admin: 07/13/21 16:52 Dose: 200 mg Documented By: ROXANA Docusate Sodium (Docusate Sodium 100 Mg Capsule) 100 mg PO DAILY [facility] Last Admin: 10/04/21 07:30 Dose: 100 mg Documented By: SAADIA Enoxaparin Sodium (Enoxaparin Sodium 40 Mg/0.4 Ml Syringe) 40 mg SUBCUT Q24H [facility] Last Admin: 10/05/21 05:47 Dose: 40 mg Documented By: DOM Ferrous Sulfate (Ferrous Sulfate 300 Mg/5 Ml Liquid) 300 mg PO DAILY [facility] Last Admin: 10/04/21 07:30 Dose: 300 mg Documented By: SAADIA Guaifenesin/Dextromethorphan (Guaifenesin Dm 200/20/10 Ml 10 Ml Syrup) 5 ml PO Q4H PRN PRN Reason: cough Multivitamins/Vitamin C (Multivitamin Tablet) 1 tab PO BEDTIME [facility] Last Admin: 10/04/21 19:08 Dose: 1 tab Documented By: DOM Omeprazole (Omeprazole 20 Mg Capsule.) 20 mg PO DAILY@0630 [facility] Last Admin: 10/05/21 05:48 Dose: 20 mg Documented By: DOM Ondansetron HCl (Ondansetron Hcl 4 Mg/2 Ml Vial) 4 mg IVPUSH Q8H PRN PRN Reason: Nausea and Vomiting Polyethylene Glycol (Polyethylene Glycol 3350 17 Gm Powd.Pack) 17 gm PO DAILY [facility] Last Admin: 10/04/21 07:30 Dose: 17 gm Documented By: SAADIA Thiamine HCl (Thiamine Hcl 100 Mg Tablet) 100 mg PO DAILY [facility] Last Admin: 10/04/21 07:30 Dose: 100 mg Documented By: SAADIA Labs CBC & Chem 7: 09/06/21 06:05 09/28/21 05:32 Assessment and Plan (1) Cognitive impairment: Status: Acute Plan 46-year-old female with of substance abuse presents to the hospital with confusion found to lack capacity to make medical decisions and awaiting placement no acute medical changes in last 24 hours bmp? 09/28/21 WNL Cognitive impairment suspected secondary to history of polysubstance abuse urine toxicology positive for cocaine, fentanyl, and marijuana although the patient adamantly denies using any illicit substance, her parents confirmed that she was actively using substances Neurology input appreciated, brain changes on imaging consistent with cocaine abuse per speech therapy note on August 08 patient is doing well with her ability to respond to confrontational naming OT evaluation Pych reassessed on 08/12 and? report that she did not have capacity to make decisions, healthcare proxy is invoked case discussed with web content & social media manager and occupational therapy E Coli UTI completed course of Abx DVT prophylaxis Lovenox need for inpatient due to cognitive linguistic impairment , waiting safe disposition given that she needs 24-hour observation. Family not able to care for her at home. [facility] to meet with her next week for consideration. Quality Stroke Does the patient have a stroke diagnosis?: No VTE Prior VTE?: No VTE Risk Level:: Medical - moderate - high VTE Device Contraindication: Treatment Not Indicated VTE Drug Contraindication: N/A - Med Ordered
[2021-10-05] MEDS: Docusate Sodium 100 MG CAPSULE PO (09:46)
[2021-10-05] MEDS: polyethylene glycoL 3350 17 GM POWD.PACK PO (09:46)
[2021-10-05] MEDS: Ferrous Sulfate 300 MG/5 ML LIQUID PO (09:46)
[2021-10-05] MEDS: Thiamine HCL 100 MG TABLET PO (09:46)
[2021-10-05 15:25] VITALS: BP 120/63; PULSE 78; RESP 18; TEMP 36.1; O2SAT 96
[2021-10-05] MEDS: Multivitamin TABLET 1 TAB PO (19:26)
[2021-10-06] VITALS: BP 103/52; PULSE 86; RESP 18; TEMP 36.2; O2SAT 96
[2021-10-06] MEDS: Omeprazole 20 MG CAPSULE.DR PO (06:03)
[2021-10-06] MEDS: Enoxaparin Sodium 40 MG/0.4 ML SYRINGE SUBCUT (06:03)
[2021-10-06 07:19] VITALS: BP 110/68; PULSE 80; RESP 15; TEMP 36.7; O2SAT 94
[2021-10-06] MEDS: Thiamine HCL 100 MG TABLET PO (08:57)
[2021-10-06] MEDS: polyethylene glycoL 3350 17 GM POWD.PACK PO (08:57)
[2021-10-06] MEDS: Docusate Sodium 100 MG CAPSULE PO (08:57)
[2021-10-06] MEDS: Ferrous Sulfate 300 MG/5 ML LIQUID PO (08:58)
--- NOTE | 2021-10-06 14:47 | HO.PM.IMPN ---
Subjective Subjective Date of Service: 10/06/21 Interval History: Follow-up for placement Review of Systems Denies any new complaint of chest pain or shortness of breath or abdominal pain or fever or chills or nausea or vomiting Physical Exam Vital Signs: Vital Signs: Last Vital Signs Temp 98.0 F 10/06/21 07:19 Pulse 80 10/06/21 07:19 Resp 15 10/06/21 07:19 BP 110/68 10/06/21 07:19 Pulse Ox 94 10/06/21 07:19 O2 Del Method 10/06/21 07:19 BMI result Body Mass Index 28.3 General: ? Resting comfortably no acute distress Resp:? CTA bilateral CVS: S1,S2,RRR GI: +BS, NT, no distention Skin: No rash Neuro:? motor grossly intact Psych:? questionable insight Objective Data Active Medications Acetaminophen (Acetaminophen 325 Mg Tablet) 650 mg PO Q6H PRN PRN Reason: Pain, Mild (Pain Scale 1-3) Benzonatate (Benzonatate 100 Mg Capsule) 200 mg PO TID PRN PRN Reason: cough Last Admin: 07/13/21 16:52 Dose: 200 mg Documented By: ROXANA Docusate Sodium (Docusate Sodium 100 Mg Capsule) 100 mg PO DAILY [facility] Last Admin: 10/06/21 08:57 Dose: 100 mg Documented By: MARITO Enoxaparin Sodium (Enoxaparin Sodium 40 Mg/0.4 Ml Syringe) 40 mg SUBCUT Q24H [facility] Last Admin: 10/06/21 06:03 Dose: 40 mg Documented By: DOM Ferrous Sulfate (Ferrous Sulfate 300 Mg/5 Ml Liquid) 300 mg PO DAILY [facility] Last Admin: 10/06/21 08:58 Dose: 300 mg Documented By: MARITO Guaifenesin/Dextromethorphan (Guaifenesin Dm 200/20/10 Ml 10 Ml Syrup) 5 ml PO Q4H PRN PRN Reason: cough Multivitamins/Vitamin C (Multivitamin Tablet) 1 tab PO BEDTIME [facility] Last Admin: 10/05/21 19:26 Dose: 1 tab Documented By: DOM Omeprazole (Omeprazole 20 Mg Capsule.) 20 mg PO DAILY@0630 [facility] Last Admin: 10/06/21 06:03 Dose: 20 mg Documented By: DOM Ondansetron HCl (Ondansetron Hcl 4 Mg/2 Ml Vial) 4 mg IVPUSH Q8H PRN PRN Reason: Nausea and Vomiting Polyethylene Glycol (Polyethylene Glycol 3350 17 Gm Powd.Pack) 17 gm PO DAILY [facility] Last Admin: 10/06/21 08:57 Dose: 17 gm Documented By: MARITO Thiamine HCl (Thiamine Hcl 100 Mg Tablet) 100 mg PO DAILY [facility] Last Admin: 10/06/21 08:57 Dose: 100 mg Documented By: MARITO Labs CBC & Chem 7: 09/06/21 06:05 09/28/21 05:32 Assessment and Plan (1) Cognitive impairment: Status: Acute Plan 46-year-old female with of substance abuse presents to the hospital with confusion found to lack capacity to make medical decisions and awaiting placement no acute medical changes in last 24 hours bmp? 09/28/21 WNL Cognitive impairment suspected secondary to history of polysubstance abuse urine toxicology positive for cocaine, fentanyl, and marijuana although the patient adamantly denies using any illicit substance, her parents confirmed that she was actively using substances Neurology input appreciated, brain changes on imaging consistent with cocaine abuse per speech therapy note on August 08 patient is doing well with her ability to respond to confrontational naming OT evaluation Pych reassessed on 08/12 and? report that she did not have capacity to make decisions, healthcare proxy is invoked case discussed with social work manager and occupational therapy E Coli UTI completed course of Abx DVT prophylaxis Lovenox need for inpatient due to cognitive linguistic impairment , waiting safe disposition given that she needs 24-hour observation. Family not able to care for her at home. [facility] to meet with her next week for consideration. Quality Stroke Does the patient have a stroke diagnosis?: No VTE Prior VTE?: No VTE Risk Level:: Medical - moderate - high VTE Device Contraindication: Treatment Not Indicated VTE Drug Contraindication: N/A - Med Ordered
[2021-10-06 16:00] VITALS: BP 113/66; PULSE 82; RESP 18; TEMP 36.9; O2SAT 94
--- NOTE | 2021-10-06 17:32 | MHC.CM.PN ---
EMR REVIEWED, CM STILL AWAITING RESPONSE FROM [facility] AND [facility], SNF REFERRAL UPDATED AND [facility] UPDATED, NO BED OFFERS AT THIS TIME, CM WILL CONT TO FOLLOW REFERRALS AND D/C NEEDS.
[2021-10-06] MEDS: Multivitamin TABLET 1 TAB PO (20:09)
[2021-10-07] VITALS: BP 102/54; PULSE 78; RESP 18; TEMP 36.5; O2SAT 95
[2021-10-07] MEDS: Omeprazole 20 MG CAPSULE.DR PO (05:27)
[2021-10-07] MEDS: Enoxaparin Sodium 40 MG/0.4 ML SYRINGE SUBCUT (05:27)
[2021-10-07 07:45] VITALS: BP 118/68; PULSE 73; RESP 18; TEMP 36.1; O2SAT 95
[2021-10-07] MEDS: Ferrous Sulfate 300 MG/5 ML LIQUID PO (08:40)
[2021-10-07] MEDS: polyethylene glycoL 3350 17 GM POWD.PACK PO (08:40)
[2021-10-07] MEDS: Docusate Sodium 100 MG CAPSULE PO (08:40)
[2021-10-07] MEDS: Thiamine HCL 100 MG TABLET PO (08:40)
--- NOTE | 2021-10-07 08:50 | HO.PM.IMPN ---
Subjective Subjective Date of Service: 10/07/21 Interval History: Follow-up for placement Review of Systems Denies any new complaint of chest pain or shortness of breath or abdominal pain or fever or chills or nausea or vomiting Physical Exam Vital Signs: Vital Signs: Last Vital Signs Temp 97.0 F 10/07/21 07:45 Pulse 73 10/07/21 07:45 Resp 18 10/07/21 07:45 BP 118/68 10/07/21 07:45 Pulse Ox 95 10/07/21 07:45 O2 Del Method 10/07/21 07:45 BMI result Body Mass Index 28.3 Appearing in no acute distress lung sounds are clear to auscultation heart regular rate rhythm, clear S1, S2 positive bowel sounds, abdomen is soft, nontender neuro patient is alert x3, no focal deficits Objective Data Active Medications Acetaminophen (Acetaminophen 325 Mg Tablet) 650 mg PO Q6H PRN PRN Reason: Pain, Mild (Pain Scale 1-3) Benzonatate (Benzonatate 100 Mg Capsule) 200 mg PO TID PRN PRN Reason: cough Last Admin: 07/13/21 16:52 Dose: 200 mg Documented By: ROXANA Docusate Sodium (Docusate Sodium 100 Mg Capsule) 100 mg PO DAILY [facility] Last Admin: 10/07/21 08:40 Dose: 100 mg Documented By: JOSEPH Enoxaparin Sodium (Enoxaparin Sodium 40 Mg/0.4 Ml Syringe) 40 mg SUBCUT Q24H [facility] Last Admin: 10/07/21 05:27 Dose: 40 mg Documented By: SHANTA Ferrous Sulfate (Ferrous Sulfate 300 Mg/5 Ml Liquid) 300 mg PO DAILY [facility] Last Admin: 10/07/21 08:40 Dose: 300 mg Documented By: JOSEPH Guaifenesin/Dextromethorphan (Guaifenesin Dm 200/20/10 Ml 10 Ml Syrup) 5 ml PO Q4H PRN PRN Reason: cough Multivitamins/Vitamin C (Multivitamin Tablet) 1 tab PO BEDTIME [facility] Last Admin: 10/06/21 20:09 Dose: 1 tab Documented By: SHANTA Omeprazole (Omeprazole 20 Mg Capsule.) 20 mg PO DAILY@0630 [facility] Last Admin: 10/07/21 05:27 Dose: 20 mg Documented By: SHANTA Ondansetron HCl (Ondansetron Hcl 4 Mg/2 Ml Vial) 4 mg IVPUSH Q8H PRN PRN Reason: Nausea and Vomiting Polyethylene Glycol (Polyethylene Glycol 3350 17 Gm Powd.Pack) 17 gm PO DAILY [facility] Last Admin: 10/07/21 08:40 Dose: 17 gm Documented By: JOSEPH Thiamine HCl (Thiamine Hcl 100 Mg Tablet) 100 mg PO DAILY [facility] Last Admin: 10/07/21 08:40 Dose: 100 mg Documented By: JOSEPH Labs CBC & Chem 7: 09/06/21 06:05 09/28/21 05:32 Assessment and Plan (1) Cognitive impairment: Status: Acute Plan 46-year-old female with of substance abuse presents to the hospital with confusion found to lack capacity to make medical decisions and awaiting placement no acute medical changes in last 24 hours Cognitive impairment suspected secondary to history of polysubstance abuse urine toxicology positive for cocaine, fentanyl, and marijuana although the patient adamantly denies using any illicit substance, her parents confirmed that she was actively using substances Neurology input appreciated, brain changes on imaging consistent with cocaine abuse per speech therapy note on August 08 patient is doing well with her ability to respond to confrontational naming OT evaluation Pych reassessed on 08/12 and? report that she did not have capacity to make decisions, healthcare proxy is invoked case discussed with child protective services social worker and occupational therapy E Coli UTI completed course of Abx DVT prophylaxis risk is low for DVT as patient is ambulating freely, will stop Lovenox Attending Dr. Gomez need for inpatient due to cognitive linguistic impairment , waiting safe disposition given that she needs 24-hour observation. Family not able to care for her at home. [facility] to meet with her next week for consideration. Quality Stroke Does the patient have a stroke diagnosis?: No VTE Prior VTE?: No VTE Risk Level:: Medical - moderate - high VTE Device Contraindication: Treatment Not Indicated VTE Drug Contraindication: N/A - Med Ordered
[2021-10-07 15:44] VITALS: BP 104/59; PULSE 90; RESP 18; TEMP 36.8; O2SAT 93
[2021-10-07] MEDS: Multivitamin TABLET 1 TAB PO (19:28)
[2021-10-07 23:44] VITALS: BP 90/53; PULSE 73; RESP 16; TEMP 36.5; O2SAT 94
[2021-10-08] MEDS: Omeprazole 20 MG CAPSULE.DR PO (05:35)
[2021-10-08 07:42] VITALS: BP 118/79; PULSE 78; RESP 17; TEMP 36; O2SAT 97
[2021-10-08] MEDS: polyethylene glycoL 3350 17 GM POWD.PACK PO (08:27)
[2021-10-08] MEDS: Ferrous Sulfate 300 MG/5 ML LIQUID PO (08:27)
[2021-10-08] MEDS: Docusate Sodium 100 MG CAPSULE PO (08:27)
[2021-10-08] MEDS: Thiamine HCL 100 MG TABLET PO (08:27)
--- NOTE | 2021-10-08 14:28 | HO.PM.IMPN ---
Subjective Subjective Date of Service: 10/08/21 Interval History: Offers no acute complaints, no events overnight, patient denies nausea vomiting abdominal pain, diarrhea, no respiratory symptoms of cough or shortness of breath. Physical Exam Vital Signs: Vital Signs: Last Vital Signs Temp 96.8 F 10/08/21 07:42 Pulse 78 10/08/21 07:42 Resp 17 10/08/21 07:42 BP 118/79 10/08/21 07:42 Pulse Ox 97 10/08/21 07:42 O2 Del Method 10/08/21 07:42 BMI result Body Mass Index 28.3 Const: Other: General: Awake alert,resting comfortably no acute distress Neck no JVD Resp:? CTA bilateral CVS: S1,S2,RRR GI: +BS, NT, no distention Skin: No rash Neuro:? motor grossly intact Psych:? questionable insight Objective Data Active Medications Acetaminophen (Acetaminophen 325 Mg Tablet) 650 mg PO Q6H PRN PRN Reason: Pain, Mild (Pain Scale 1-3) Benzonatate (Benzonatate 100 Mg Capsule) 200 mg PO TID PRN PRN Reason: cough Last Admin: 07/13/21 16:52 Dose: 200 mg Documented By: ROXANA Docusate Sodium (Docusate Sodium 100 Mg Capsule) 100 mg PO DAILY [facility] Last Admin: 10/08/21 08:27 Dose: 100 mg Documented By: JOSEPH Ferrous Sulfate (Ferrous Sulfate 300 Mg/5 Ml Liquid) 300 mg PO DAILY [facility] Last Admin: 10/08/21 08:27 Dose: 300 mg Documented By: JOSEPH Guaifenesin/Dextromethorphan (Guaifenesin Dm 200/20/10 Ml 10 Ml Syrup) 5 ml PO Q4H PRN PRN Reason: cough Multivitamins/Vitamin C (Multivitamin Tablet) 1 tab PO BEDTIME [facility] Last Admin: 10/07/21 19:28 Dose: 1 tab Documented By: JAIR Omeprazole (Omeprazole 20 Mg Capsule.) 20 mg PO DAILY@0630 [facility] Last Admin: 10/08/21 05:35 Dose: 20 mg Documented By: JAIR Ondansetron HCl (Ondansetron Hcl 4 Mg/2 Ml Vial) 4 mg IVPUSH Q8H PRN PRN Reason: Nausea and Vomiting Polyethylene Glycol (Polyethylene Glycol 3350 17 Gm Powd.Pack) 17 gm PO DAILY [facility] Last Admin: 10/08/21 08:27 Dose: 17 gm Documented By: JOSEPH Thiamine HCl (Thiamine Hcl 100 Mg Tablet) 100 mg PO DAILY [facility] Last Admin: 10/08/21 08:27 Dose: 100 mg Documented By: JOSEPH Labs CBC & Chem 7: 09/06/21 06:05 09/28/21 05:32 Assessment and Plan (1) Cognitive impairment: Status: Acute Plan 46-year-old female with of substance abuse presents to the hospital with confusion found to lack capacity to make medical decisions and awaiting placement no acute medical changes in last 24 hours Cognitive impairment No change in mental status suspected secondary to history of polysubstance abuse urine toxicology positive for cocaine, fentanyl, and marijuana although the patient adamantly denies using any illicit substance, her parents confirmed that she was actively using substances Neurology input appreciated, brain changes on imaging consistent with cocaine abuse per speech therapy note on August 08 patient is doing well with her ability to respond to confrontational naming Pych reassessed on 08/12 and? report that she did not have capacity to make decisions, healthcare proxy is invoked case discussed with protective services social worker and occupational therapy E Coli UTI completed course of Abx DVT prophylaxis risk is low for DVT as patient is ambulating freely, will stop Lovenox need for inpatient due to cognitive linguistic impairment , waiting safe disposition given that she needs 24-hour observation. Family not able to care for her at home. [facility] to meet with her next week for consideration. Quality Stroke Does the patient have a stroke diagnosis?: No VTE Prior VTE?: No VTE Risk Level:: Medical - moderate - high VTE Device Contraindication: Treatment Not Indicated VTE Drug Contraindication: N/A - Med Ordered
[2021-10-08 15:35] VITALS: BP 117/64; PULSE 82; RESP 20; TEMP 36.9; O2SAT 94
--- NOTE | 2021-10-08 16:12 | MHC.CM.PN ---
EMR REVIEWED, THIS CM HAS LEFT MESSAGES FOR ADMISSION LIAISONS AT [facility] AND [facility], CM STILL AWAITING RESPONSES, CM WILL CONT TO FOLLOW D/C NEEDS.
[2021-10-08] MEDS: Multivitamin TABLET 1 TAB PO (19:31)
[2021-10-08 23:32] VITALS: BP 106/58; PULSE 77; RESP 14; TEMP 36.6; O2SAT 94
[2021-10-09] MEDS: Omeprazole 20 MG CAPSULE.DR PO (05:49)
[2021-10-09] MEDS: Thiamine HCL 100 MG TABLET PO (07:23)
[2021-10-09] MEDS: polyethylene glycoL 3350 17 GM POWD.PACK PO (07:23)
[2021-10-09] MEDS: Ferrous Sulfate 300 MG/5 ML LIQUID PO (07:23)
[2021-10-09] MEDS: Docusate Sodium 100 MG CAPSULE PO (07:23)
[2021-10-09 07:37] VITALS: BP 129/73; PULSE 68; RESP 18; TEMP 36.7; O2SAT 99
--- NOTE | 2021-10-09 10:53 | HO.PM.IMPN ---
Subjective Subjective Date of Service: 10/09/21 Interval History: Offers no acute complaints, no events overnight, patient denies nausea vomiting abdominal pain, diarrhea, no respiratory symptoms of cough or shortness of breath. Review of Systems Review of Systems: Yes all other systems are reviewed and are negative Physical Exam Vital Signs: Vital Signs: Last Vital Signs Temp 98.1 F 10/09/21 07:37 Pulse 68 10/09/21 07:37 Resp 18 10/09/21 07:37 BP 129/73 10/09/21 07:37 Pulse Ox 99 10/09/21 07:37 O2 Del Method 10/09/21 07:37 BMI result Body Mass Index 28.3 Const: Other: General:? Awake alert,resting comfortably no acute distress Neck no JVD Resp:? CTA bilateral CVS: S1,S2,RRR GI: +BS, NT, no distention Skin: No rash Neuro:? motor grossly intact Psych:? questionable insight Objective Data Active Medications Benzonatate (Benzonatate 100 Mg Capsule) 200 mg PO TID PRN PRN Reason: cough Last Admin: 07/13/21 16:52 Dose: 200 mg Documented By: ROXANA Docusate Sodium (Docusate Sodium 100 Mg Capsule) 100 mg PO DAILY [facility] Last Admin: 10/09/21 07:23 Dose: 100 mg Documented By: JOSEPH Ferrous Sulfate (Ferrous Sulfate 300 Mg/5 Ml Liquid) 300 mg PO DAILY [facility] Last Admin: 10/09/21 07:23 Dose: 300 mg Documented By: JOSEPH Guaifenesin/Dextromethorphan (Guaifenesin Dm 200/20/10 Ml 10 Ml Syrup) 5 ml PO Q4H PRN PRN Reason: cough Multivitamins/Vitamin C (Multivitamin Tablet) 1 tab PO BEDTIME [facility] Last Admin: 10/08/21 19:31 Dose: 1 tab Documented By: JAIR Omeprazole (Omeprazole 20 Mg Capsule.) 20 mg PO DAILY@0630 [facility] Last Admin: 10/09/21 05:49 Dose: 20 mg Documented By: JAIR Polyethylene Glycol (Polyethylene Glycol 3350 17 Gm Powd.Pack) 17 gm PO DAILY [facility] Last Admin: 10/09/21 07:23 Dose: 17 gm Documented By: JOSEPH Thiamine HCl (Thiamine Hcl 100 Mg Tablet) 100 mg PO DAILY [facility] Last Admin: 10/09/21 07:23 Dose: 100 mg Documented By: JOSEPH Labs CBC & Chem 7: 09/06/21 06:05 09/28/21 05:32 Assessment and Plan (1) Cognitive impairment: Status: Acute Plan 46-year-old female with of substance abuse presents to the hospital with confusion found to lack capacity to make medical decisions and awaiting placement no acute medical changes noted in last 24 hours Cognitive impairment No change in mental status suspected secondary to history of polysubstance abuse urine toxicology positive for cocaine, fentanyl, and marijuana although the patient adamantly denies using any illicit substance, her parents confirmed that she was actively using substances Neurology input appreciated, brain changes on imaging consistent with cocaine abuse per speech therapy note on August 08 patient is doing well with her ability to respond to confrontational naming Pych reassessed on 08/12 and? report that she did not have capacity to make decisions, healthcare proxy is invoked case discussed with social studies teacher and occupational therapy E Coli UTI completed course of Abx DVT prophylaxis risk is low for DVT as patient is ambulating freely, will stop Lovenox need for inpatient due to cognitive linguistic impairment , waiting safe disposition given that she needs 24-hour observation. Family not able to care for her at home. [facility] to meet with her next week for consideration. Quality Stroke Does the patient have a stroke diagnosis?: No VTE Prior VTE?: No VTE Risk Level:: Medical - moderate - high VTE Device Contraindication: Treatment Not Indicated VTE Drug Contraindication: N/A - Med Ordered
--- NOTE | 2021-10-09 14:58 | MHC.CM.PN ---
EMR REVIEWED, CM CONT'S TO WAIT FOR RESPONSES FROM [facility], [facility] AND [facility], SNF REFERRALS UPDATED, NO BED OFFERS AT THIS TIME, SM WILL CONT TO FOLLOW D/C NEEDS.
[2021-10-09 15:16] VITALS: BP 109/62; PULSE 81; RESP 18; TEMP 36.7; O2SAT 93
[2021-10-09] MEDS: Multivitamin TABLET 1 TAB PO (20:12)
[2021-10-09 23:33] VITALS: BP 94/53; PULSE 86; RESP 16; TEMP 36.7; O2SAT 93
[2021-10-10] MEDS: Omeprazole 20 MG CAPSULE.DR PO (06:10)
[2021-10-10] MEDS: Ferrous Sulfate 300 MG/5 ML LIQUID PO (07:33)
[2021-10-10] MEDS: Thiamine HCL 100 MG TABLET PO (07:33)
[2021-10-10 08:00] VITALS: BP 135/80; PULSE 70; RESP 17; TEMP 35.9; O2SAT 96
--- NOTE | 2021-10-10 10:19 | HO.PM.IMPN ---
Subjective Subjective Date of Service: 10/10/21 Interval History: Offers no acute complaints no issues overnight, denies pain no nausea, no vomiting, tolerating diet, ambulating with no difficulty. Review of Systems Review of Systems: Yes all other systems are reviewed and are negative Physical Exam Vital Signs: Vital Signs: Last Vital Signs Temp 96.7 F L 10/10/21 08:00 Pulse 70 10/10/21 08:00 Resp 17 10/10/21 08:00 BP 135/80 10/10/21 08:00 Pulse Ox 96 10/10/21 08:00 O2 Del Method 10/10/21 08:00 BMI result Body Mass Index 28.3 Const: Other: General:? Awake alert,resting comfortably no acute distress Neck no JVD Resp:? CTA bilateral CVS: S1,S2,RRR GI: +BS, NT, no distention Skin: No rash Neuro:? motor grossly intact Psych:? questionable insight Objective Data Active Medications Docusate Sodium (Docusate Sodium 100 Mg Capsule) 100 mg PO DAILY [facility] Last Admin: 10/10/21 07:34 Dose: Not Given Documented By: EVERARDO Non-Admin Reason: Patient Refused Ferrous Sulfate (Ferrous Sulfate 300 Mg/5 Ml Liquid) 300 mg PO DAILY [facility] Last Admin: 10/10/21 07:33 Dose: 300 mg Documented By: EVERARDO Guaifenesin/Dextromethorphan (Guaifenesin Dm 200/20/10 Ml 10 Ml Syrup) 5 ml PO Q4H PRN PRN Reason: cough Multivitamins/Vitamin C (Multivitamin Tablet) 1 tab PO BEDTIME [facility] Last Admin: 10/09/21 20:12 Dose: 1 tab Documented By: JAIR Omeprazole (Omeprazole 20 Mg Capsule.Dr) 20 mg PO DAILY@0630 [facility] Last Admin: 10/10/21 06:10 Dose: 20 mg Documented By: ALEYDA Polyethylene Glycol (Polyethylene Glycol 3350 17 Gm Powd.Pack) 17 gm PO DAILY [facility] Last Admin: 10/10/21 07:34 Dose: Not Given Documented By: EVERARDO Non-Admin Reason: Patient Refused Thiamine HCl (Thiamine Hcl 100 Mg Tablet) 100 mg PO DAILY [facility] Last Admin: 10/10/21 07:33 Dose: 100 mg Documented By: EVERARDO Labs CBC & Chem 7: 07/02/22 06:05 09/28/21 05:32 Assessment and Plan (1) Cognitive impairment: Status: Acute Plan 46-year-old female with of substance abuse presents to the hospital with confusion found to lack capacity to make medical decisions and awaiting placement no acute medical changes noted in last 24 hours Cognitive impairment No change in mental status suspected secondary to history of polysubstance abuse urine toxicology positive for cocaine, fentanyl, and marijuana although the patient adamantly denies using any illicit substance, her parents confirmed that she was actively using substances Neurology input appreciated, brain changes on imaging consistent with cocaine abuse per speech therapy note on August 08 patient is doing well with her ability to respond to confrontational naming Pych reassessed on 08/12 and? report that she did not have capacity to make decisions, healthcare proxy is invoked case discussed with director of social media marketing and occupational therapy E Coli UTI completed course of Abx DVT prophylaxis risk is low for DVT as patient is ambulating freely, will stop Lovenox need for inpatient due to cognitive linguistic impairment , waiting safe disposition given that she needs 24-hour observation. Family not able to care for her at home. [facility] to meet with her next week for consideration. Quality Stroke Does the patient have a stroke diagnosis?: No VTE Prior VTE?: No VTE Risk Level:: Medical - moderate - high VTE Device Contraindication: Treatment Not Indicated VTE Drug Contraindication: N/A - Med Ordered
--- NOTE | 2021-10-10 14:46 | MHC.CM.PN ---
Cm met w/pt's mother at bedside, per pt's mom there is a family friend who works as a nurse at [employer] and she believes she can get her into [facility], referral updated in [facility] and message sent w/Sindhu's name. [employer] attempting to upgrade pt to standard, no snf bed offers or response from [facility] or [facility]. cm will cont to follow.
[2021-10-10 16:00] VITALS: BP 109/61; PULSE 80; RESP 16; TEMP 36.6; O2SAT 94
[2021-10-10] MEDS: Multivitamin TABLET 1 TAB PO (19:26)
[2021-10-11] VITALS: BP 102/59; PULSE 88; RESP 18; TEMP 36.5; O2SAT 95
[2021-10-11] MEDS: Omeprazole 20 MG CAPSULE.DR PO (05:13)
[2021-10-11] MEDS: Ferrous Sulfate 300 MG/5 ML LIQUID PO (07:57)
[2021-10-11 08:00] VITALS: BP 111/66; PULSE 82; RESP 18; TEMP 36.5; O2SAT 95
--- NOTE | 2021-10-11 10:13 | P.PNIM_ITS ---
Subjective Subjective Date of Service: 10/11/21 Interval History: Offers no acute complaints, tolerating diet no nausea no vomiting no diarrhea ambulating without assistive device, no acute events overnight. Review of Systems Review of Systems: Yes all other systems are reviewed and are negative Physical Exam Vital Signs: Vital Signs: Last Vital Signs Temp 97.7 F 10/11/21 08:00 Pulse 82 10/11/21 08:00 Resp 18 10/11/21 08:00 BP 111/66 10/11/21 08:00 Pulse Ox 95 10/11/21 08:00 O2 Del Method 10/11/21 08:00 BMI result Body Mass Index 28.3 Const: Other: General:? Awake alert,resting comfortably no acute distress Neck no JVD Resp:? CTA bilateral CVS: S1,S2,RRR GI: +BS, NT, no distention Skin: No rash Neuro:? motor grossly intact Psych:? questionable insight Objective Data Active Medications Ferrous Sulfate (Ferrous Sulfate 300 Mg/5 Ml Liquid) 300 mg PO DAILY [facility] Last Admin: 10/11/21 07:57 Dose: 300 mg Documented By: PABLO Guaifenesin/Dextromethorphan (Guaifenesin Dm 200/20/10 Ml 10 Ml Syrup) 5 ml PO Q4H PRN PRN Reason: cough Labs CBC & Chem 7: 09/06/21 06:05 09/28/21 05:32 Assessment and Plan (1) Cognitive impairment: Status: Acute Plan 46-year-old female with of substance abuse presents to the hospital with confusion found to lack capacity to make medical decisions and awaiting placement no acute medical changes noted in last 24 hours Cognitive impairment No change in mental status suspected secondary to history of polysubstance abuse urine toxicology positive for cocaine, fentanyl, and marijuana although the patient adamantly denies using any illicit substance, her parents confirmed that she was actively using substances Neurology input appreciated, brain changes on imaging consistent with cocaine abuse per speech therapy note on August 08 patient is doing well with her ability to respond to confrontational naming Pych reassessed on 08/12 and? report that she did not have capacity to make decisions, healthcare proxy is invoked case discussed with clinical social worker and occupational therapy E Coli UTI completed course of Abx DVT prophylaxis risk is low for DVT as patient is ambulating freely, will stop Lovenox need for inpatient due to cognitive linguistic impairment , waiting safe disposition given that she needs 24-hour observation. Family not able to care for her at home. Quality Stroke Does the patient have a stroke diagnosis?: No VTE Prior VTE?: No VTE Risk Level:: Medical - moderate - high VTE Device Contraindication: Treatment Not Indicated VTE Drug Contraindication: N/A - Med Ordered
[2021-10-12] VITALS: BP 106/64; PULSE 85; RESP 16; TEMP 36.1; O2SAT 95
[2021-10-12 08:00] VITALS: BP 120/74; PULSE 77; RESP 77; TEMP 36.5
[2021-10-12] MEDS: Ferrous Sulfate 300 MG/5 ML LIQUID PO (10:36)
--- NOTE | 2021-10-12 11:06 | P.PNIM_ITS ---
Subjective Subjective Date of Service: 10/12/21 Interval History: No acute complaints, no overnight issues. Review of Systems HVAC OPERATIONS TECHNICIAN no headache no dizziness CVS no chest pain Respiratory no cough, no shortness of breath Review of Systems: Yes all other systems are reviewed and are negative Physical Exam Vital Signs: Vital Signs: Last Vital Signs Temp 97.7 F 10/12/21 08:00 Pulse 77 10/12/21 08:00 Resp 77 H 10/12/21 08:00 BP 120/74 10/12/21 08:00 Pulse Ox 95 10/12/21 00:00 O2 Del Method 10/12/21 00:00 BMI result Body Mass Index 28.3 Const: Other: General:? Awake al ert,resting comfor tably no acute dis tress Neck no JVD Resp:? CTA bilater al CVS: S1,S2,RRR GI: +BS, NT, no di stention Skin: No rash Neuro:? motor grossly intact Ps ych:? questionable insight Objective Data Active Medications Ferrous Sulfate (Ferrous Sulfate 300 Mg/5 Ml Liquid) 300 mg PO DAILY [facility] Last Admin: 10/12/21 10:36 Dose: 300 mg Documented By: PABLO Guaifenesin/Dextromethorphan (Guaifenesin Dm 200/20/10 Ml 10 Ml Syrup) 5 ml PO Q4H PRN PRN Reason: cough Labs CBC & Chem 7: 09/06/21 06:05 09/28/21 05:32 Assessment and Plan (1) Cognitive impairment: Status: Acute Plan 46-year-old female with of substance abuse presents to the hospital with confusion found to lack capacity to make medical decisions and awaiting placement no acute medical changes noted in last 24 hours Cognitive impairment No change in mental status suspected secondary to history of polysubstance abuse urine toxicology positive for cocaine, fentanyl, and marijuana although the patient adamantly denies using any illicit substance, her parents confirmed that she was actively using substances Neurology input appreciated, brain changes on imaging consistent with cocaine abuse per speech therapy note on August 08 patient is doing well with her ability to respond to confrontational naming Pych reassessed on 08/12 and? report that she did not have capacity to make decisions, healthcare proxy is invoked case discussed with social organization professor and occupational therapy E Coli UTI completed course of Abx DVT prophylaxis risk is low for DVT as patient is ambulating freely, will stop Lovenox need for inpatient due to cognitive linguistic impairment , waiting safe disposition given that she needs 24-hour observation. Family not able to care for her at home. Quality Stroke Does the patient have a stroke diagnosis?: No VTE Prior VTE?: No VTE Risk Level:: Medical - moderate - high VTE Device Contraindication: Treatment Not Indicated VTE Drug Contraindication: N/A - Med Ordered
[2021-10-12 16:00] VITALS: BP 138/72; PULSE 90; RESP 17; TEMP 36.3; O2SAT 94
[2021-10-13] VITALS: BP 105/61; PULSE 88; RESP 16; TEMP 36.3; O2SAT 95
--- NOTE | 2021-10-13 07:33 | MHC.CM.PN ---
CM RECEIVED MESSAGE FROM FS AND REPORTED PT HAS BEEN UPGRADED TO [facility], CM TO FOLLOW UP W/ANY ADDITIONAL NEEDS WHEN FS OFFICE OPENS. CM CONTACTED ADMISSIONS LIAISON AT [facility] AT 8:28AM [phone], PER LIAISON THEY WILL REVIEW UPDATES AND CALL CM BACK W/DECISION. CM ATTEMPTED TO CONTACT [facility] ADMISSIONS [facility] AT 7:35AM [phone] TO DETERMINE IF THEY HAVE A FEMALE BED AND OF PT CAN AT LEAST BE PUT ON WAIT LIST, NO ANSWER AND MESSAGE LEFT W/CM CONTACT INFO. CM ATTMEPTED TO CONTACT DM[facility] ADMISSIONS/BUSINESS OFFICE [facility] AT 8:40AM [phone] TO DETERMINE IF PT FEMALE BED WAS FILLED AND/OR IF PT HAS BEEN PLACED ON WAIT LIST, NO ANSWER AND MESSAGE LEFT W/CM CALL BACK INFO.
[2021-10-13 07:46] VITALS: BP 128/70; PULSE 80; RESP 16; TEMP 36.6; O2SAT 96
[2021-10-13] MEDS: Ferrous Sulfate 300 MG/5 ML LIQUID PO (08:16)
--- NOTE | 2021-10-13 13:43 | P.PNIM_ITS ---
Subjective Subjective Date of Service: 10/13/21 Interval History: Offers no acute complaints no issues overnight, denies pain no nausea, no vomiting, tolerating diet, ambulating with no difficulty. Review of Systems Review of Systems: Yes all other systems are reviewed and are negative Physical Exam Vital Signs: Vital Signs: Last Vital Signs Temp 97.9 F 10/13/21 07:46 Pulse 80 10/13/21 07:46 Resp 16 10/13/21 07:46 BP 128/70 10/13/21 07:46 Pulse Ox 96 10/13/21 07:46 O2 Del Method 10/13/21 07:46 BMI result Body Mass Index 28.3 Const: Other: General:? Awake alert,resting comfortably no acute distress Neck no JVD Resp:? CTA bilateral CVS: S1,S2,RRR GI: +BS, NT, no distention Skin: No rash Neuro:? motor grossly intact Psych:? questionable insight Objective Data Active Medications Ferrous Sulfate (Ferrous Sulfate 300 Mg/5 Ml Liquid) 300 mg PO DAILY [facility] Last Admin: 10/13/21 08:16 Dose: 300 mg Documented By: SAADIA Guaifenesin/Dextromethorphan (Guaifenesin Dm 200/20/10 Ml 10 Ml Syrup) 5 ml PO Q4H PRN PRN Reason: cough Labs CBC & Chem 7: 09/06/21 06:05 09/28/21 05:32 Assessment and Plan (1) Cognitive impairment: Status: Acute Plan 46-year-old female with of substance abuse presents to the hospital with confusion found to lack capacity to make medical decisions and awaiting placement no acute medical changes remains stable Cognitive impairment No change in mental status suspected secondary to history of polysubstance abuse urine toxicology positive for cocaine, fentanyl, and marijuana although the patient adamantly denies using any illicit substance, her parents confirmed that she was actively using substances Neurology input appreciated, brain changes on imaging consistent with cocaine abuse per speech therapy note on August 08 patient is doing well with her ability to respond to confrontational naming Pych reassessed on 08/12 and? report that she did not have capacity to make decisions, healthcare proxy is invoked case discussed with social work coordinator and occupational therapy E Coli UTI completed course of Abx DVT prophylaxis risk is low for DVT as patient is ambulating freely, will stop Lovenox need for inpatient due to cognitive linguistic impairment , waiting safe disposition given that she needs 24-hour observation. Family not able to care for her at home. Quality Stroke Does the patient have a stroke diagnosis?: No VTE Prior VTE?: No VTE Risk Level:: Medical - moderate - high VTE Device Contraindication: Treatment Not Indicated VTE Drug Contraindication: N/A - Med Ordered
[2021-10-13 16:00] VITALS: BP 109/58; PULSE 80; RESP 18; TEMP 36.6; O2SAT 95
[2021-10-13 23:17] VITALS: BP 94/50; PULSE 73; RESP 14; TEMP 36; O2SAT 94
[2021-10-14] MEDS: Ferrous Sulfate 300 MG/5 ML LIQUID PO (07:16)
[2021-10-14 07:43] VITALS: BP 124/76; PULSE 81; RESP 18; TEMP 36.6; O2SAT 94
--- NOTE | 2021-10-14 13:57 | HO.PM.IMPN ---
Subjective Subjective Date of Service: 10/14/21 Interval History: Cognitive impairment Review of Systems no acute complaints no issues overnight, denies pain no nausea, no vomiting, tolerating diet, ambulating with no difficulty. Physical Exam Vital Signs: Vital Signs: Last Vital Signs Temp 97.9 F 10/14/21 07:43 Pulse 81 10/14/21 07:43 Resp 18 10/14/21 07:43 BP 124/76 10/14/21 07:43 Pulse Ox 94 10/14/21 07:43 O2 Del Method 10/14/21 07:43 BMI result Body Mass Index 28.3 General:? Awake alert,resting comfortably no acute distress Neck no JVD Resp:? CTA bilateral CVS: S1,S2,RRR GI: +BS, NT, no distention Skin: No rash Neuro:? motor grossly intact Psych:? questionable insight Objective Data Active Medications Ferrous Sulfate (Ferrous Sulfate 300 Mg/5 Ml Liquid) 300 mg PO DAILY [facility] Last Admin: 10/14/21 07:16 Dose: 300 mg Documented By: JOSEPH Guaifenesin/Dextromethorphan (Guaifenesin Dm 200/20/10 Ml 10 Ml Syrup) 5 ml PO Q4H PRN PRN Reason: cough Labs CBC & Chem 7: 09/06/21 06:05 09/28/21 05:32 Assessment and Plan (1) Cognitive impairment: Status: Acute Plan 46-year-old female with of substance abuse presents to the hospital with confusion found to lack capacity to make medical decisions and awaiting placement no acute medical changes remains stable Cognitive impairment No change in mental status suspected secondary to history of polysubstance abuse urine toxicology positive for cocaine, fentanyl, and marijuana although the patient adamantly denies using any illicit substance, her parents confirmed that she was actively using substances Neurology input appreciated, brain changes on imaging consistent with cocaine abuse per speech therapy note on August 08 patient is doing well with her ability to respond to confrontational naming Pych reassessed on 08/12 and? report that she did not have capacity to make decisions, healthcare proxy is invoked case discussed with social problems specialist and occupational therapy E Coli UTI completed course of Abx DVT prophylaxis risk is low for DVT as patient is ambulating freely, will stop Lovenox need for inpatient due to cognitive linguistic impairment , waiting safe disposition given that she needs 24-hour observation. Family not able to care for her at home. Quality Stroke Does the patient have a stroke diagnosis?: No VTE Prior VTE?: No VTE Risk Level:: Medical - moderate - high VTE Device Contraindication: Treatment Not Indicated VTE Drug Contraindication: N/A - Med Ordered
[2021-10-14] MEDS: Thiamine HCL 100 MG TABLET PO (14:35)
[2021-10-14 15:42] VITALS: BP 110/58; PULSE 87; RESP 17; TEMP 36.7; O2SAT 95
[2021-10-14 23:38] VITALS: BP 113/70; PULSE 81; RESP 18; TEMP 36.1; O2SAT 94
[2021-10-15 07:11] VITALS: BP 129/61; PULSE 75; RESP 18; TEMP 36.1; O2SAT 94
[2021-10-15] MEDS: Ferrous Sulfate 300 MG/5 ML LIQUID PO (08:28)
[2021-10-15] MEDS: Thiamine HCL 100 MG TABLET PO (08:28)
--- NOTE | 2021-10-15 11:55 | HO.PM.IMPN ---
Subjective Subjective Date of Service: 10/15/21 Interval History: Denies any chest pain or shortness of breath or abdominal pain or fever or chills or nausea or vomiting Denies any cough Denies any weakness or numbness. Review of Systems Review of Systems: Yes all other systems are reviewed and are negative Physical Exam Vital Signs: Vital Signs: Last Vital Signs Temp 96.9 F 10/15/21 07:11 Pulse 75 10/15/21 07:11 Resp 18 10/15/21 07:11 BP 129/61 10/15/21 07:11 Pulse Ox 94 10/15/21 07:11 O2 Del Method 10/15/21 07:11 BMI result Body Mass Index 28.3 General:? Awake alert,resting comfortably no acute distress Neck no JVD Resp:? CTA bilateral CVS: S1,S2,RRR GI: +BS, NT, no distention Skin: No rash Neuro:? motor grossly intact Psych:? questionable insight Objective Data Active Medications Ferrous Sulfate (Ferrous Sulfate 300 Mg/5 Ml Liquid) 300 mg PO DAILY [facility] Last Admin: 10/15/21 08:28 Dose: 300 mg Documented By: JOSEPH Guaifenesin/Dextromethorphan (Guaifenesin Dm 200/20/10 Ml 10 Ml Syrup) 5 ml PO Q4H PRN PRN Reason: cough Thiamine HCl (Thiamine Hcl 100 Mg Tablet) 100 mg PO DAILY [facility] Last Admin: 10/15/21 08:28 Dose: 100 mg Documented By: JOSEPH Labs CBC & Chem 7: 09/06/21 06:05 09/28/21 05:32 Assessment and Plan (1) Cognitive impairment: Status: Acute Plan 46-year-old female with of substance abuse presents to the hospital with confusion found to lack capacity to make medical decisions and awaiting placement no acute medical changes remains stable Cognitive impairment No change in mental status suspected secondary to history of polysubstance abuse urine toxicology positive for cocaine, fentanyl, and marijuana although the patient adamantly denies using any illicit substance, her parents confirmed that she was actively using substances Neurology input appreciated, brain changes on imaging consistent with cocaine abuse per speech therapy note on August 08 patient is doing well with her ability to respond to confrontational naming Pych reassessed on 08/12 and? report that she did not have capacity to make decisions, healthcare proxy is invoked case discussed with social media editor and occupational therapy E Coli UTI completed course of Abx DVT prophylaxis risk is low for DVT as patient is ambulating freely, will stop Lovenox need for inpatient due to cognitive linguistic impairment , waiting safe disposition given that she needs 24-hour observation. Family not able to care for her at home. Quality Stroke Does the patient have a stroke diagnosis?: No VTE Prior VTE?: No VTE Risk Level:: Medical - moderate - high VTE Device Contraindication: Treatment Not Indicated VTE Drug Contraindication: N/A - Med Ordered
--- NOTE | 2021-10-15 15:00 | MHC.CM.PN ---
Addendum entered by Laura Frank RN 10/15/21 15:05: CM ATTEMPTED TO CONTACT [facility] ADMISSIONS [facility] AT 3:02PM [phone] TO DETERMINE IF THEY HAVE A FEMALE BED AND OF PT CAN AT LEAST BE PUT ON WAIT LIST, NO ANSWER AND MESSAGE LEFT W/CM CONTACT INFO. CM ATTMEPTED TO CONTACT [facility] ADMISSIONS/BUSINESS OFFICE [facility] AT 3:05PM [phone] TO DETERMINE IF PT FEMALE BED WAS FILLED AND/OR IF PT HAS BEEN PLACED ON WAIT LIST, NO ANSWER AND MESSAGE LEFT W/CM CALL BACK INFO. Original Note: CM CONTACTED PT'S MOTHER ASHLEY AT 2:45PM AT NUMBER ON FILE TO LET HER KNOW PT HAS BEEN UPGRADED TO STANDARD, ASHLEY ALSO UPDATED ON PLACEMENT ISSUES. CM CONTACTED VERITO AT [facility] AND THEY ARE UNABLE TO OFFER A BED THEY DO NOT FEEL THEY CAN OFFER A DOG HAIR CLIPPER PLACEMENT FOR PT AND NOTED THEY'RE SENIOR CARE UNIT IS FOR PT'S W/[place] DISEASE.
[2021-10-15 15:57] VITALS: BP 107/64; PULSE 80; RESP 17; TEMP 36.5; O2SAT 95
[2021-10-15 23:54] VITALS: BP 100/55; PULSE 83; RESP 17; TEMP 36.2; O2SAT 95
[2021-10-16 07:16] VITALS: BP 112/62; PULSE 79; RESP 18; TEMP 36.3; O2SAT 95
[2021-10-16] MEDS: Ferrous Sulfate 300 MG/5 ML LIQUID PO (08:23)
[2021-10-16] MEDS: Thiamine HCL 100 MG TABLET PO (08:23)
--- NOTE | 2021-10-16 13:15 | MHC.CM.PN ---
CM CONTACTED [facility] ADMISSIONS LIAISON [facility] AT 1:05PM, PER [facility] PT NOT A CANDIDATE FOR ADMISSION AND WILL NOT BE OFFERED A BED, [facility] REPORTS THAT STAFF AT FACILITY ARE UNABLE TO GET PT ADMITTED TO FACILITY.
--- NOTE | 2021-10-16 13:33 | MHC.CM.PN ---
cm met w/pt's dad/hcp Jerardo on unit, Jerardo updated on status and placement, Jerardo given cm contact card, Jerardo aware cm will contact him w/any change in status or placement is found.
--- NOTE | 2021-10-16 13:35 | HO.PM.IMPN ---
Subjective Subjective Date of Service: 10/16/21 Interval History: Denies any chest pain or shortness of breath or abdominal pain or fever or chills or nausea or vomiting Review of Systems Review of Systems: Yes all other systems are reviewed and are negative Physical Exam Vital Signs: Vital Signs: Last Vital Signs Temp 97.3 F 10/16/21 07:16 Pulse 79 10/16/21 07:16 Resp 18 10/16/21 07:16 BP 112/62 10/16/21 07:16 Pulse Ox 95 10/16/21 07:16 O2 Del Method 10/16/21 07:16 BMI result Body Mass Index 28.3 General:? Awake alert,resting comfortably no acute distress Neck no JVD Resp:? CTA bilateral CVS: S1,S2,RRR GI: +BS, NT, no distention Skin: No rash Neuro:? motor grossly intact Psych:? questionable insight Objective Data Active Medications Ferrous Sulfate (Ferrous Sulfate 300 Mg/5 Ml Liquid) 300 mg PO DAILY [facility] Last Admin: 10/16/21 08:23 Dose: 300 mg Documented By: JOSEPH Guaifenesin/Dextromethorphan (Guaifenesin Dm 200/20/10 Ml 10 Ml Syrup) 5 ml PO Q4H PRN PRN Reason: cough Thiamine HCl (Thiamine Hcl 100 Mg Tablet) 100 mg PO DAILY [facility] Last Admin: 10/16/21 08:23 Dose: 100 mg Documented By: JOSEPH Labs CBC & Chem 7: 09/06/21 06:05 09/28/21 05:32 Assessment and Plan (1) Cognitive impairment: Status: Acute Plan 46-year-old female with of substance abuse presents to the hospital with confusion found to lack capacity to make medical decisions and awaiting placement no acute medical changes remains stable Cognitive impairment No change in mental status suspected secondary to history of polysubstance abuse urine toxicology positive for cocaine, fentanyl, and marijuana although the patient adamantly denies using any illicit substance, her parents confirmed that she was actively using substances Neurology input appreciated, brain changes on imaging consistent with cocaine abuse per speech therapy note on August 08 patient is doing well with her ability to respond to confrontational naming Pych reassessed on 08/12 and? report that she did not have capacity to make decisions, healthcare proxy is invoked case discussed with community mental health social worker and occupational therapy E Coli UTI completed course of Abx DVT prophylaxis risk is low for DVT as patient is ambulating freely, will stop Lovenox need for inpatient due to cognitive linguistic impairment , waiting safe disposition given that she needs 24-hour observation. Family not able to care for her at home. Quality Stroke Does the patient have a stroke diagnosis?: No VTE Prior VTE?: No VTE Risk Level:: Medical - moderate - high VTE Device Contraindication: Treatment Not Indicated VTE Drug Contraindication: N/A - Med Ordered
[2021-10-16 15:45] VITALS: BP 106/70; PULSE 85; RESP 16; TEMP 36.4; O2SAT 95
[2021-10-16 23:53] VITALS: BP 100/55; PULSE 75; RESP 17; TEMP 36.2; O2SAT 96
[2021-10-17] MEDS: Thiamine HCL 100 MG TABLET PO (07:23)
[2021-10-17] MEDS: Ferrous Sulfate 300 MG/5 ML LIQUID PO (07:23)
[2021-10-17 07:33] VITALS: BP 123/76; PULSE 71; RESP 18; TEMP 36.6; O2SAT 95
--- NOTE | 2021-10-17 13:33 | P.PNIM_ITS ---
Subjective Subjective Date of Service: 10/17/21 Interval History: Denies any chest pain or shortness of breath or abdominal pain or fever? Sitting in the bed, eating breakfast. Review of Systems Review of Systems: Yes all other systems are reviewed and are negative Physical Exam Vital Signs: Vital Signs: Last Vital Signs Temp 97.9 F 10/17/21 07:33 Pulse 71 10/17/21 07:33 Resp 18 10/17/21 07:33 BP 123/76 10/17/21 07:33 Pulse Ox 95 10/17/21 07:33 O2 Del Method 10/17/21 07:33 BMI result Body Mass Index 28.3 General:? Awake alert,resting comfortably no acute distress Neck no JVD Resp:? CTA bilateral CVS: S1,S2,RRR GI: +BS, NT, no distention Skin: No rash Neuro:? motor grossly intact Psych:? questionable insight Objective Data Active Medications Ferrous Sulfate (Ferrous Sulfate 300 Mg/5 Ml Liquid) 300 mg PO DAILY [facility] Last Admin: 10/17/21 07:23 Dose: 300 mg Documented By: EVERARDO Guaifenesin/Dextromethorphan (Guaifenesin Dm 200/20/10 Ml 10 Ml Syrup) 5 ml PO Q4H PRN PRN Reason: cough Thiamine HCl (Thiamine Hcl 100 Mg Tablet) 100 mg PO DAILY [facility] Last Admin: 10/17/21 07:23 Dose: 100 mg Documented By: EVERARDO Labs CBC & Chem 7: 09/06/21 06:05 09/28/21 05:32 Assessment and Plan (1) Cognitive impairment: Status: Acute Plan 46-year-old female with of substance abuse presents to the hospital with confusion found to lack capacity to make medical decisions and awaiting ingrid cement no acute medical changes remains stable Cognitive impairment No change in mental status suspected secondary to history of polysubstance abuse urine toxicology positive for cocaine, fentanyl, and marijuana although the patient adamantly denies using any illicit substance, her parents confirmed that she was actively using substances Neurology input appreciated, brain changes on imaging consistent with cocaine abuse per speech therapy note on August 08 patient is doing well with her ability to respond to confrontational naming Pych reassessed on 08/12 and? report that she did not have capacity to make decisions, healthcare proxy is invoked case discussed with home health care social worker and occupational therapy E Coli UTI completed course of Abx DVT prophylaxis risk is low for DVT as patient is ambulating freely, will stop Lovenox need for inpatient due to cognitive linguistic impairment , waiting safe disposition given that she needs 24-hour observation. Family not able to care for her at home. Quality Stroke Does the patient have a stroke diagnosis?: No VTE Prior VTE?: No VTE Risk Level:: Medical - moderate - high VTE Device Contraindication: Treatment Not Indicated VTE Drug Contraindication: N/A - Med Ordered
[2021-10-17 16:00] VITALS: BP 121/69; PULSE 82; RESP 17; TEMP 37.1; O2SAT 94
[2021-10-17 23:38] VITALS: BP 102/54; PULSE 84; RESP 16; TEMP 36.4; O2SAT 96
[2021-10-18 07:26] VITALS: BP 132/74; PULSE 82; RESP 16; TEMP 36.8; O2SAT 95
[2021-10-18] MEDS: Thiamine HCL 100 MG TABLET PO (09:32)
[2021-10-18] MEDS: Ferrous Sulfate 300 MG/5 ML LIQUID PO (09:32)
--- NOTE | 2021-10-18 14:49 | P.PNIM_ITS ---
Subjective Subjective Date of Service: 10/18/21 Interval History: Denies any chest pain or shortness of breath or abdominal pain or fever? Sitting in the bed, eating breakfast. Review of Systems Review of Systems: Yes all other systems are reviewed and are negative Physical Exam Vital Signs: Vital Signs: Last Vital Signs Temp 98.2 F 10/18/21 07:26 Pulse 82 10/18/21 07:26 Resp 16 10/18/21 07:26 BP 132/74 10/18/21 07:26 Pulse Ox 95 10/18/21 07:26 O2 Del Method 10/18/21 07:26 BMI result Body Mass Index 28.3 General:? Awake alert,resting comfortably no acute distress Neck no JVD Resp:? CTA bilateral CVS: S1,S2,RRR GI: +BS, NT, no distention Skin: No rash Neuro:? motor grossly intact Psych:? questionable insight Objective Data Active Medications Ferrous Sulfate (Ferrous Sulfate 300 Mg/5 Ml Liquid) 300 mg PO DAILY [facility] Last Admin: 10/18/21 09:32 Dose: 300 mg Documented By: EVERARDO Guaifenesin/Dextromethorphan (Guaifenesin Dm 200/20/10 Ml 10 Ml Syrup) 5 ml PO Q4H PRN PRN Reason: cough Thiamine HCl (Thiamine Hcl 100 Mg Tablet) 100 mg PO DAILY [facility] Last Admin: 10/18/21 09:32 Dose: 100 mg Documented By: EVERARDO Labs CBC & Chem 7: 09/06/21 06:05 09/28/21 05:32 Assessment and Plan (1) Cognitive impairment: Status: Acute Plan 46-year-old female with of substance abuse presents to the hospital with confusion found to lack capacity to make medical decisions and awaiting ingrid cement no acute medical changes remains stable Cognitive impairment No change in mental status suspected secondary to history of polysubstance abuse urine toxicology positive for cocaine, fentanyl, and marijuana although the patient adamantly denies using any illicit substance, her parents confirmed that she was actively using substances Neurology input appreciated, brain changes on imaging consistent with cocaine abuse per speech therapy note on August 08 patient is doing well with her ability to respond to confrontational naming Pych reassessed on 08/12 and? report that she did not have capacity to make decisions, healthcare proxy is invoked case discussed with foster care social worker and occupational therapy E Coli UTI completed course of Abx DVT prophylaxis risk is low for DVT as patient is ambulating freely, will stop Lovenox need for inpatient due to cognitive linguistic impairment , waiting safe disposition given that she needs 24-hour observation. Family not able to care for her at home. Quality Stroke Does the patient have a stroke diagnosis?: No VTE Prior VTE?: No VTE Risk Level:: Medical - moderate - high VTE Device Contraindication: Treatment Not Indicated VTE Drug Contraindication: N/A - Med Ordered
[2021-10-18 14:58] VITALS: BP 108/61; PULSE 79; RESP 17; TEMP 36.8; O2SAT 95
[2021-10-18 23:13] VITALS: BP 101/53; PULSE 87; RESP 16; TEMP 36.1; O2SAT 94
[2021-10-19] MEDS: Ferrous Sulfate 300 MG/5 ML LIQUID PO (07:51)
[2021-10-19] MEDS: Thiamine HCL 100 MG TABLET PO (07:51)
[2021-10-19 08:00] VITALS: BP 119/73; PULSE 81; RESP 17; TEMP 36.2; O2SAT 95
--- NOTE | 2021-10-19 11:53 | HO.PM.IMPN ---
Subjective Subjective Date of Service: 10/19/21 Interval History: no acute complaints no issues overnight, denies pain no nausea, no vomiting, tolerating diet, ambulating with no difficulty. Review of Systems Review of Systems: Yes all other systems are reviewed and are negative Physical Exam Vital Signs: Vital Signs: Last Vital Signs Temp 97.2 F 10/19/21 08:00 Pulse 81 10/19/21 08:00 Resp 17 10/19/21 08:00 BP 119/73 10/19/21 08:00 Pulse Ox 95 10/19/21 08:00 O2 Del Method 10/19/21 08:00 BMI result Body Mass Index 28.3 General:? Awake alert,resting comfortably no acute distress Neck no JVD Resp:? CTA bilateral CVS: S1,S2,RRR GI: +BS, NT, no distention Skin: No rash Neuro:? motor grossly intact Psych:? questionable insight Objective Data Active Medications Ferrous Sulfate (Ferrous Sulfate 300 Mg/5 Ml Liquid) 300 mg PO DAILY [facility] Last Admin: 10/19/21 07:51 Dose: 300 mg Documented By: EVERARDO Thiamine HCl (Thiamine Hcl 100 Mg Tablet) 100 mg PO DAILY [facility] Last Admin: 10/19/21 07:51 Dose: 100 mg Documented By: EVERARDO Labs CBC & Chem 7: 09/06/21 06:05 09/28/21 05:32 Assessment and Plan (1) Cognitive impairment: Status: Acute Plan 46-year-old female with of substance abuse presents to the hospital with confusion found to lack capacity to make medical decisions and awaiting placement no acute medical changes remains stable Cognitive impairment No change in mental status suspected secondary to history of polysubstance abuse urine toxicology positive for cocaine, fentanyl, and marijuana although the patient adamantly denies using any illicit substance, her parents confirmed that she was actively using substances Neurology input appreciated, brain changes on imaging consistent with cocaine abuse per speech therapy note on August 08 patient is doing well with her ability to respond to confrontational naming Pych reassessed on 08/12 and? report that she did not have capacity to make decisions, healthcare proxy is invoked case discussed with social science manager and occupational therapy E Coli UTI completed course of Abx DVT prophylaxis risk is low for DVT as patient is ambulating freely, will stop Lovenox need for inpatient due to cognitive linguistic impairment , waiting safe disposition given that she needs 24-hour observation. Family not able to care for her at home. Quality Stroke Does the patient have a stroke diagnosis?: No VTE Prior VTE?: No VTE Risk Level:: Medical - moderate - high VTE Device Contraindication: Treatment Not Indicated VTE Drug Contraindication: N/A - Med Ordered
[2021-10-19 15:25] VITALS: BP 102/58; PULSE 84; RESP 17; TEMP 36.7; O2SAT 95
[2021-10-19 23:28] VITALS: BP 106/68; PULSE 88; RESP 16; TEMP 37.1; O2SAT 97
[2021-10-20 07:42] VITALS: BP 124/69; PULSE 78; RESP 17; TEMP 36.7; O2SAT 96
[2021-10-20] MEDS: Thiamine HCL 100 MG TABLET PO (07:58)
[2021-10-20] MEDS: Ferrous Sulfate 300 MG/5 ML LIQUID PO (08:02)
--- NOTE | 2021-10-20 14:41 | P.PNIM_ITS ---
Subjective Subjective Date of Service: 10/20/21 Interval History: ?no acute complaints no issues overnight, denies pain no nausea, no vomiting, tolerating diet, ambulating with no difficulty. Review of Systems Review of Systems: Yes all other systems are reviewed and are negative Physical Exam Vital Signs: Vital Signs: Last Vital Signs Temp 98.0 F 10/20/21 07:42 Pulse 78 10/20/21 07:42 Resp 17 10/20/21 07:42 BP 124/69 10/20/21 07:42 Pulse Ox 96 10/20/21 07:42 O2 Del Method 10/20/21 07:42 BMI result Body Mass Index 28.3 General:? Awake alert,resting comfortably no acute distress Neck no JVD Resp:? CTA bilateral CVS: S1,S2,RRR GI: +BS, NT, no distention Skin: No rash Neuro:? motor grossly intact Psych:? questionable insight Objective Data Active Medications Ferrous Sulfate (Ferrous Sulfate 300 Mg/5 Ml Liquid) 300 mg PO DAILY [facility] Last Admin: 10/20/21 08:02 Dose: 300 mg Documented By: ENRIQUE Thiamine HCl (Thiamine Hcl 100 Mg Tablet) 100 mg PO DAILY [facility] Last Admin: 10/20/21 07:58 Dose: 100 mg Documented By: ENRIQUE Labs CBC & Chem 7: 09/06/21 06:05 09/28/21 05:32 Assessment and Plan (1) Cognitive impairment: Status: Acute Plan 46-year-old female with of substance abuse presents to the hospital with confusion found to lack capacity to make medical decisions and awaiting placem ent no acute medical changes remains stable Cognitive impairment No change in mental status suspected secondary to history of polysubstance abuse urine toxicology positive for cocaine, fentanyl, and marijuana although the patient adamantly denies using any illicit substance, her parents confirmed that she was actively using substances Neurology input appreciated, brain changes on imaging consistent with cocaine abuse per speech therapy note on August 08 patient is doing well with her ability to respond to confrontational naming Pych reassessed on 08/12 and? report that she did not have capacity to make decisions, healthcare proxy is invoked case discussed with social work associate and occupational therapy E Coli UTI completed course of Abx DVT prophylaxis risk is low for DVT as patient is ambulating freely, will stop Lovenox need for inpatient due to cognitive linguistic impairment , waiting safe disposition given that she needs 24-hour observation. Family not able to care for her at home. Quality Stroke Does the patient have a stroke diagnosis?: No VTE Prior VTE?: No VTE Risk Level:: Medical - moderate - high VTE Device Contraindication: Treatment Not Indicated VTE Drug Contraindication: N/A - Med Ordered
[2021-10-20 15:47] VITALS: BP 115/64; PULSE 77; TEMP 36.6; O2SAT 96
[2021-10-20 23:45] VITALS: BP 100/53; PULSE 75; RESP 16; TEMP 37.1; O2SAT 95
[2021-10-21 07:42] VITALS: BP 112/70; PULSE 79; RESP 18; TEMP 36.2; O2SAT 96
[2021-10-21] MEDS: Ferrous Sulfate 300 MG/5 ML LIQUID PO (08:32)
[2021-10-21] MEDS: Thiamine HCL 100 MG TABLET PO (08:32)
--- NOTE | 2021-10-21 10:33 | HO.PM.IMPN ---
Subjective Subjective Date of Service: 10/21/21 Interval History: no acute complaints no issues overnight, denies pain no nausea, no vomiting, tolerating diet, ambulating with no difficulty. Review of Systems Review of Systems: Yes all other systems are reviewed and are negative Physical Exam Vital Signs: Vital Signs: Last Vital Signs Temp 97.2 F 10/21/21 07:42 Pulse 79 10/21/21 07:42 Resp 18 10/21/21 07:42 BP 112/70 10/21/21 07:42 Pulse Ox 96 10/21/21 07:42 O2 Del Method 10/21/21 07:42 BMI result Body Mass Index 28.3 General:? Awake alert,resting comfortably no acute distress Neck no JVD Resp:? CTA bilateral CVS: S1,S2,RRR GI: +BS, NT, no distention Skin: No rash Neuro:? motor grossly intact Psych:? questionable insight Objective Data Active Medications Ferrous Sulfate (Ferrous Sulfate 300 Mg/5 Ml Liquid) 300 mg PO DAILY [facility] Last Admin: 10/21/21 08:32 Dose: 300 mg Documented By: KWAKU Thiamine HCl (Thiamine Hcl 100 Mg Tablet) 100 mg PO DAILY [facility] Last Admin: 10/21/21 08:32 Dose: 100 mg Documented By: KWAKU Labs CBC & Chem 7: 09/06/21 06:05 09/28/21 05:32 Assessment and Plan (1) Cognitive impairment: Status: Acute Plan 46-year-old female with of substance abuse presents to the hospital with confusion found to lack capacity to make medical decisions and awaiting placement no acute medical changes remains stable Cognitive impairment No change in mental status suspected secondary to history of polysubstance abuse urine toxicology positive for cocaine, fentanyl, and marijuana although the patient adamantly denies using any illicit substance, her parents confirmed that she was actively using substances Neurology input appreciated, brain changes on imaging consistent with cocaine abuse per speech therapy note on August 08 patient is doing well with her ability to respond to confrontational naming Pych reassessed on 08/12 and? report that she did not have capacity to make decisions, healthcare proxy is invoked case discussed with mental health social worker and occupational therapy E Coli UTI completed course of Abx DVT prophylaxis risk is low for DVT as patient is ambulating freely, will stop Lovenox need for inpatient due to cognitive linguistic impairment , waiting safe disposition given that she needs 24-hour observation. Family not able to care for her at home. Quality Stroke Does the patient have a stroke diagnosis?: No VTE Prior VTE?: No VTE Risk Level:: Medical - moderate - high VTE Device Contraindication: Treatment Not Indicated VTE Drug Contraindication: N/A - Med Ordered
--- NOTE | 2021-10-21 12:32 | MHC.CM.PN ---
EMR REVIEW, PATIENT NEEDS 24-HR OBSERVATION R/T COGNITIVE LINGUISTIC IMPAIRMENT; FAMILY UNABLE TO PROVIDE CARE; WAITING ON SAFE DISCHARGE/PLACEMENT. CM WILL CONTINUE TO FOLLOW FOR D/C NEED.
[2021-10-21 15:37] VITALS: BP 107/63; PULSE 88; RESP 17; TEMP 37.3; O2SAT 96
[2021-10-21 23:35] VITALS: BP 100/51; PULSE 96; RESP 16; TEMP 36.8; O2SAT 95
[2021-10-22 07:59] VITALS: BP 120/71; PULSE 79; RESP 18; TEMP 36.5; O2SAT 95
--- NOTE | 2021-10-22 10:15 | P.PNIM_ITS ---
Subjective Subjective Date of Service: 10/22/21 Interval History: Laying in bed, feels comfortable Denies any fever, chills or shortness of breath No reported other overnight events. Systemic review: No fever, chills or weakness No chest pain, palpitation No shortness of breath or coughing No abdominal pain, nausea or vomiting No urinary symptoms No any rash or wounds Physical Exam Vital Signs: Vital Signs: Last Vital Signs Temp 97.7 F 10/22/21 07:59 Pulse 79 10/22/21 07:59 Resp 18 10/22/21 07:59 BP 120/71 10/22/21 07:59 Pulse Ox 95 10/22/21 07:59 O2 Del Method 10/22/21 07:59 BMI result Body Mass Index 28.3 Const: Other: General:? alert, awake in no acute distress neck no JVD Resp:? Chest wall moving bilateral, no wheezing CVS: S1,S2,RRR GI:? abdomen soft, nontender, bowel sounds audible Skin: No rash Neuro:? motor grossly intact Objective Data Active Medications Ferrous Sulfate (Ferrous Sulfate 300 Mg/5 Ml Liquid) 300 mg PO DAILY [facility] Last Admin: 10/21/21 08:32 Dose: 300 mg Documented By: KWAKU Thiamine HCl (Thiamine Hcl 100 Mg Tablet) 100 mg PO DAILY [facility] Last Admin: 10/21/21 08:32 Dose: 100 mg Documented By: KWAKU Labs CBC & Chem 7: 09/06/21 06:05 09/28/21 05:32 Assessment and Plan (1) Cognitive impairment: Status: Acute Plan 46-year-old female with of substance abuse presents to the hospital with confusion found to lack capacity to make medical decisions and awaiting placement no acute medical changes remains stable Cognitive impairment No change in mental status suspected secondary to history of polysubstance abuse urine toxicology positive for cocaine, fentanyl, and marijuana although the patient adamantly denies using any illicit substance, her parents confirmed that she was actively using substances Neurology input appreciated, brain changes on imaging consistent with cocaine abuse per speech therapy note on August 08 patient is doing well with her ability to respond to confrontational naming Pych reassessed on 08/12 and? report that she did not have capacity to make decisions, healthcare proxy is invoked case discussed with social work assistant and occupational therapy E Coli UTI completed course of Abx DVT prophylaxis risk low for DVT as patient is ambulating freely need for inpatient due to cognitive linguistic impairment , waiting safe dis position given that she needs 24-hour observation. Family not able to care for her at home. Quality Stroke Does the patient have a stroke diagnosis?: No VTE Prior VTE?: No VTE Risk Level:: Medical - moderate - high VTE Device Contraindication: Treatment Not Indicated VTE Drug Contraindication: N/A - Med Ordered
[2021-10-22] MEDS: Ferrous Sulfate 300 MG/5 ML LIQUID PO (10:28)
[2021-10-22] MEDS: Thiamine HCL 100 MG TABLET PO (10:29)
--- NOTE | 2021-10-22 11:59 | MHC.CM.PN ---
EMR REVIEWED, PT REMIANS MEDICALLY STABLE AND PLACEMENT ISSUE, CM DIRECTOR REPORTS SHE RECEIVED CALL [facility] AND THEY DO NOT HAVE A FEMALE BED AT THIS TIME, SNF REFERRAL UPDATED AND CM WILL FOLLOW UP /[facility].
[2021-10-22 23:39] VITALS: BP 102/63; PULSE 85; RESP 16; TEMP 36.6; O2SAT 94
[2021-10-23 08:00] VITALS: BP 110/65; PULSE 79; RESP 14; TEMP 36.7; O2SAT 96
[2021-10-23] MEDS: Thiamine HCL 100 MG TABLET PO (09:59)
--- NOTE | 2021-10-23 10:20 | HO.PM.IMPN ---
Subjective Subjective Date of Service: 10/23/21 Interval History: Laying in bed, feels comfortable Denies any fever, chills or shortness of breath No reported other overnight events. Systemic review: No fever, chills or weakness No chest pain, palpitation No shortness of breath or coughing No abdominal pain, nausea or vomiting No urinary symptoms No any rash or wounds Physical Exam Vital Signs: Vital Signs: Last Vital Signs Temp 98.1 F 10/23/21 08:00 Pulse 79 10/23/21 08:00 Resp 14 10/23/21 08:00 BP 110/65 10/23/21 08:00 Pulse Ox 96 10/23/21 08:00 O2 Del Method 10/23/21 08:00 BMI result Body Mass Index 28.3 Const: Other: General:? alert, awake in no acute distress neck no JVD Resp:? Chest wall moving bilateral, no wheezing CVS: S1,S2,RRR GI:? abdomen soft, nontender, bowel sounds audible Skin: No rash Neuro:? motor grossly intact Objective Data Active Medications Ferrous Sulfate (Ferrous Sulfate 300 Mg/5 Ml Liquid) 300 mg PO DAILY [facility] Last Admin: 10/23/21 09:59 Dose: Not Given Documented By: RIKI Non-Admin Reason: Med Not Available Thiamine HCl (Thiamine Hcl 100 Mg Tablet) 100 mg PO DAILY [facility] Last Admin: 10/23/21 09:59 Dose: 100 mg Documented By: RIKI Labs CBC & Chem 7: 09/06/21 06:05 09/28/21 05:32 Assessment and Plan (1) Cognitive impairment: Status: Acute Plan 46-year-old female with of substance abuse presents to the hospital with confusion found to lack capacity to make medical decisions and awaiting placement no acute medical changes remains stable Cognitive impairment No change in mental status suspected secondary to history of polysubstance abuse urine toxicology positive for cocaine, fentanyl, and marijuana although the patient adamantly denies using any illicit substance, her parents confirmed that she was actively using substances Neurology input appreciated, brain changes on imaging consistent with cocaine abuse per speech therapy note on August 08 patient is doing well with her ability to respond to confrontational naming Pych reassessed on 08/12 and? report that she did not have capacity to make decisions, healthcare proxy is invoked case discussed with social science teacher and occupational therapy E Coli UTI completed course of Abx DVT prophylaxis risk low for DVT as patient is ambulating freely need for inpatient due to cognitive linguistic impairment , waiting safe disposition given that she needs 24-hour observation. Family not able to care for her at home. Quality Stroke Does the patient have a stroke diagnosis?: No VTE Prior VTE?: No VTE Risk Level:: Medical - moderate - high VTE Device Contraindication: Treatment Not Indicated VTE Drug Contraindication: N/A - Med Ordered
[2021-10-23 15:19] VITALS: BP 142/66; PULSE 69; RESP 20; TEMP 37; O2SAT 98
[2021-10-24] VITALS: BP 97/59; PULSE 89; RESP 17; TEMP 36.5; O2SAT 95
[2021-10-24 08:00] VITALS: BP 107/72; PULSE 77; RESP 15; TEMP 37; O2SAT 96
--- NOTE | 2021-10-24 09:24 | HO.PM.IMPN ---
Subjective Subjective Date of Service: 10/24/21 Interval History: Laying in bed, feels comfortable Denies any fever, chills or shortness of breath No reported other overnight events. Systemic review: No fever, chills or weakness No chest pain, palpitation No shortness of breath or coughing No abdominal pain, nausea or vomiting No urinary symptoms No any rash or wounds Physical Exam Vital Signs: Vital Signs: Last Vital Signs Temp 98.6 F 10/24/21 08:00 Pulse 77 10/24/21 08:00 Resp 15 10/24/21 08:00 BP 107/72 10/24/21 08:00 Pulse Ox 96 10/24/21 08:00 O2 Del Method 10/24/21 08:00 BMI result Body Mass Index 28.3 Const: Other: General:? alert, awake in no acute distress neck no JVD Resp:? Chest wall moving bilateral, no wheezing CVS: S1,S2,RRR GI:? abdomen soft, nontender, bowel sounds audible Skin: No rash Neuro:? motor grossly intact Objective Data Active Medications Ferrous Sulfate (Ferrous Sulfate 300 Mg/5 Ml Liquid) 300 mg PO DAILY [facility] Last Admin: 10/23/21 09:59 Dose: Not Given Documented By: RIKI Non-Admin Reason: Med Not Available Thiamine HCl (Thiamine Hcl 100 Mg Tablet) 100 mg PO DAILY [facility] Last Admin: 10/23/21 09:59 Dose: 100 mg Documented By: RIKI Labs CBC & Chem 7: 09/06/21 06:05 09/28/21 05:32 Assessment and Plan (1) Cognitive impairment: Status: Acute Plan 46-year-old female with of substance abuse presents to the hospital with confusion found to lack capacity to make medical decisions and awaiting placement no acute medical changes remains stable Cognitive impairment No change in mental status suspected secondary to history of polysubstance abuse urine toxicology positive for cocaine, fentanyl, and marijuana although the patient adamantly denies using any illicit substance, her parents confirmed that she was actively using substances Neurology input appreciated, brain changes on imaging consistent with cocaine abuse per speech therapy note on August 08 patient is doing well with her ability to respond to confrontational naming Pych reassessed on 08/12 and? report that she did not have capacity to make decisions, healthcare proxy is invoked case discussed with social director and occupational therapy E Coli UTI completed course of Abx DVT prophylaxis risk low for DVT as patient is ambulating freely need for inpatient due to cognitive linguistic impairment , waiting safe disposition given that she needs 24-hour observation. Family not able to care for her at home. Quality Stroke Does the patient have a stroke diagnosis?: No VTE Prior VTE?: No VTE Risk Level:: Medical - moderate - high VTE Device Contraindication: Treatment Not Indicated VTE Drug Contraindication: N/A - Med Ordered
[2021-10-24] MEDS: Thiamine HCL 100 MG TABLET PO (10:25)
[2021-10-24] MEDS: Ferrous Sulfate 300 MG/5 ML LIQUID PO (10:25)
[2021-10-24 15:30] VITALS: BP 111/68; PULSE 73; RESP 18; TEMP 36.3; O2SAT 98
[2021-10-25] VITALS: BP 100/52; PULSE 87; RESP 17; TEMP 36.3; O2SAT 94
[2021-10-25 07:29] VITALS: BP 113/70; PULSE 88; RESP 19; TEMP 36.3; O2SAT 95
[2021-10-25] MEDS: Thiamine HCL 100 MG TABLET PO (08:31)
[2021-10-25] MEDS: Ferrous Sulfate 300 MG/5 ML LIQUID PO (08:31)
--- NOTE | 2021-10-25 09:35 | HO.PM.IMPN ---
Subjective Subjective Date of Service: 10/25/21 Interval History: Laying in bed, feels comfortable Denies any fever, chills or shortness of breath No reported other overnight events. Systemic review: No fever, chills or weakness No chest pain, palpitation No shortness of breath or coughing No abdominal pain, nausea or vomiting No urinary symptoms No any rash or wounds Physical Exam Vital Signs: Vital Signs: Last Vital Signs Temp 97.3 F 10/25/21 07:29 Pulse 88 10/25/21 07:29 Resp 19 10/25/21 07:29 BP 113/70 10/25/21 07:29 Pulse Ox 95 10/25/21 07:29 O2 Del Method 10/25/21 07:29 BMI result Body Mass Index 28.3 Const: Other: General:? alert, awake in no acute distress neck no JVD Resp:? Chest wall moving bilateral, no wheezing CVS: S1,S2,RRR GI:? abdomen soft, nontender, bowel sounds audible Skin: No rash Neuro:? motor grossly intact Objective Data Active Medications Ferrous Sulfate (Ferrous Sulfate 300 Mg/5 Ml Liquid) 300 mg PO DAILY [facility] Last Admin: 10/25/21 08:31 Dose: 300 mg Documented By: IVANNA Thiamine HCl (Thiamine Hcl 100 Mg Tablet) 100 mg PO DAILY [facility] Last Admin: 10/25/21 08:31 Dose: 100 mg Documented By: IVANNA Labs CBC & Chem 7: 09/06/21 06:05 09/28/21 05:32 Assessment and Plan (1) Cognitive impairment: Status: Acute Plan 46-year-old female with of substance abuse presents to the hospital with confusion found to lack capacity to make medical decisions and awaiting placement no acute medical changes remains stable Cognitive impairment No change in mental status suspected secondary to history of polysubstance abuse urine toxicology positive for cocaine, fentanyl, and marijuana although the patient adamantly denies using any illicit substance, her parents confirmed that she was actively using substances Neurology input appreciated, brain changes on imaging consistent with cocaine abuse per speech therapy note on August 08 patient is doing well with her ability to respond to confrontational naming Pych reassessed on 08/12 and? report that she did not have capacity to make decisions, healthcare proxy is invoked case discussed with social staff worker and occupational therapy E Coli UTI completed course of Abx DVT prophylaxis risk low for DVT as patient is ambulating freely need for inpatient due to cognitive linguistic impairment , waiting safe disposition given that she needs 24-hour observation. Family not able to care for her at home. Quality Stroke Does the patient have a stroke diagnosis?: No VTE Prior VTE?: No VTE Risk Level:: Medical - moderate - high VTE Device Contraindication: Treatment Not Indicated VTE Drug Contraindication: N/A - Med Ordered
[2021-10-25 15:51] VITALS: BP 124/75; PULSE 96; RESP 18; TEMP 37.4; O2SAT 95
[2021-10-26] VITALS: RESP 20
[2021-10-26 07:29] VITALS: BP 122/67; PULSE 79; RESP 18; TEMP 36.2; O2SAT 96
--- NOTE | 2021-10-26 08:49 | HO.PM.IMPN ---
Subjective Subjective Date of Service: 10/26/21 Interval History: Laying in bed, feels comfortable Denies any fever, chills or shortness of breath No reported other overnight events. Systemic review: No fever, chills or weakness No chest pain, palpitation No shortness of breath or coughing No abdominal pain, nausea or vomiting No urinary symptoms No any rash or wounds Physical Exam Vital Signs: Vital Signs: Last Vital Signs Temp 97.2 F 10/26/21 07:29 Pulse 79 10/26/21 07:29 Resp 18 10/26/21 07:29 BP 122/67 10/26/21 07:29 Pulse Ox 96 10/26/21 07:29 O2 Del Method 10/26/21 07:29 BMI result Body Mass Index 28.3 Const: Other: General:? alert, awake in no acute distress neck no JVD Resp:? Chest wall moving bilateral, no wheezing CVS: S1,S2,RRR GI:? abdomen soft, nontender, bowel sounds audible Skin: No rash Neuro:? motor grossly intact Objective Data Active Medications Ferrous Sulfate (Ferrous Sulfate 300 Mg/5 Ml Liquid) 300 mg PO DAILY [facility] Last Admin: 10/25/21 08:31 Dose: 300 mg Documented By: IVANNA Thiamine HCl (Thiamine Hcl 100 Mg Tablet) 100 mg PO DAILY [facility] Last Admin: 10/25/21 08:31 Dose: 100 mg Documented By: IVANNA Labs CBC & Chem 7: 09/06/21 06:05 09/28/21 05:32 Assessment and Plan (1) Cognitive impairment: Status: Acute Plan 46-year-old female with of substance abuse presents to the hospital with confusion found to lack capacity to make medical decisions and awaiting placement no acute medical changes remains stable Cognitive impairment No change in mental status suspected secondary to history of polysubstance abuse urine toxicology positive for cocaine, fentanyl, and marijuana although the patient adamantly denies using any illicit substance, her parents confirmed that she was actively using substances Neurology input appreciated, brain changes on imaging consistent with cocaine abuse per speech therapy note on August 08 patient is doing well with her ability to respond to confrontational naming Pych reassessed on 08/12 and? report that she did not have capacity to make decisions, healthcare proxy is invoked case discussed with social work instructor and occupational therapy E Coli UTI completed course of Abx DVT prophylaxis risk low for DVT as patient is ambulating freely need for inpatient due to cognitive linguistic impairment , waiting safe disposition given that she needs 24-hour observation. Family not able to care for her at home. Quality Stroke Does the patient have a stroke diagnosis?: No VTE Prior VTE?: No VTE Risk Level:: Medical - moderate - high VTE Device Contraindication: Treatment Not Indicated VTE Drug Contraindication: N/A - Med Ordered
[2021-10-26] MEDS: Thiamine HCL 100 MG TABLET PO (10:12)
[2021-10-26] MEDS: Ferrous Sulfate 300 MG/5 ML LIQUID PO (10:12)
[2021-10-26 15:26] VITALS: BP 114/63; PULSE 87; RESP 20; TEMP 36.8; O2SAT 93
[2021-10-26 23:41] VITALS: BP 113/55; PULSE 91; RESP 16; TEMP 36.1; O2SAT 95
[2021-10-27 07:43] VITALS: BP 117/75; PULSE 86; RESP 18; TEMP 36.6; O2SAT 96
[2021-10-27] MEDS: Ferrous Sulfate 300 MG/5 ML LIQUID PO (08:04)
[2021-10-27] MEDS: Thiamine HCL 100 MG TABLET PO (08:04)
--- NOTE | 2021-10-27 09:45 | P.PNIM_ITS ---
Subjective Subjective Date of Service: 10/27/21 Interval History: Laying in bed, feels comfortable Denies any fever, chills or shortness of breath No reported other overnight events. Systemic review: No fever, chills or weakness No chest pain, palpitation No shortness of breath or coughing No abdominal pain, nausea or vomiting No urinary symptoms No any rash or wounds Physical Exam Vital Signs: Vital Signs: Last Vital Signs Temp 97.8 F 10/27/21 07:43 Pulse 86 10/27/21 07:43 Resp 18 10/27/21 07:43 BP 117/75 10/27/21 07:43 Pulse Ox 96 10/27/21 07:43 O2 Del Method 10/27/21 07:43 BMI result Body Mass Index 28.3 Const: Other: General:? alert, awake in no acute distress neck no JVD Resp:? Chest wall moving bilateral, no wheezing CVS: S1,S2,RRR GI:? abdomen soft, nontender, bowel sounds audible Skin: No rash Neuro:? motor grossly intact Objective Data Active Medications Ferrous Sulfate (Ferrous Sulfate 300 Mg/5 Ml Liquid) 300 mg PO DAILY [facility] Last Admin: 10/27/21 08:04 Dose: 300 mg Documented By: ANANYA Thiamine HCl (Thiamine Hcl 100 Mg Tablet) 100 mg PO DAILY [facility] Last Admin: 10/27/21 08:04 Dose: 100 mg Documented By: ANANYA Labs CBC & Chem 7: 09/06/21 06:05 09/28/21 05:32 Assessment and Plan (1) Cognitive impairment: Status: Acute Plan 46-year-old female with of substance abuse presents to the hospital with confusion found to lack capacity to make medical decisions and awaiting placement no acute medical changes remains stable Cognitive impairment No change in mental status suspected secondary to history of polysubstance abuse urine toxicology positive for cocaine, fentanyl, and marijuana although the patient adamantly denies using any illicit substance, her parents confirmed that she was actively using substances Neurology input appreciated, brain changes on imaging consistent with cocaine abuse per speech therapy note on August 08 patient is doing well with her ability to respond to confrontational naming Pych reassessed on 08/12 and? report that she did not have capacity to make decisions, healthcare proxy is invoked case discussed with social media designer and occupational therapy E Coli UTI completed course of Abx DVT prophylaxis risk low for DVT as patient is ambulating freely need for inpatient due to cognitive linguistic impairment , waiting safe dis position given that she needs 24-hour observation. Family not able to care for her at home. Quality Stroke Does the patient have a stroke diagnosis?: No VTE Prior VTE?: No VTE Risk Level:: Medical - moderate - high VTE Device Contraindication: Treatment Not Indicated VTE Drug Contraindication: N/A - Med Ordered
[2021-10-27 15:47] VITALS: BP 114/65; PULSE 82; RESP 14; TEMP 36.7; O2SAT 95
[2021-10-28] VITALS: BP 98/59; PULSE 86; RESP 18; TEMP 36.8; O2SAT 97
[2021-10-28 07:32] VITALS: BP 108/65; PULSE 79; RESP 16; TEMP 37.3; O2SAT 96
[2021-10-28] MEDS: Ferrous Sulfate 300 MG/5 ML LIQUID PO (08:18)
[2021-10-28] MEDS: Thiamine HCL 100 MG TABLET PO (08:18)
--- NOTE | 2021-10-28 09:31 | MHC.CM.PN ---
Addendum entered by Laura Frank RN 10/28/21 12:51: CM CONFIRMED W/CM ENVIRONMENTAL FIELD TECHNICIAN AND CM DIRECTOR PT UNABLE TO CHANGE HCP AT THIS TIME D/T LACKING CAPACITY. CM WILL FOLLOW-UP W/PT'S DAD/HCP JOHNATHAN WHEN HE COMES IN. Original Note: CM RECEIVED CALL FROM PT'S FATHER/HCP JOHNATHAN MANN REQUESTING [facility] CHANGED TO PT'S MOTHER/ALTERNATE HCP JOHNATHAN RAMIREZ AWARE PSYCH REPORTS PT LACKS CAPACITY AND NOT LIKELY HCP CAN BE CHANGED HOWEVER CM WILL DISCUSS IN ROUNDS. JOHNATHAN REPORTS HE WILL BE IN LATER THIS AFTERNOON AND WILL STOP AT DESK AND ASK FOR CM.
--- NOTE | 2021-10-28 11:05 | P.PNIM_ITS ---
Subjective Subjective Date of Service: 10/28/21 Interval History: Laying in bed, feels comfortable Denies any fever, chills or shortness of breath No reported other overnight events. Systemic review: No fever, chills or weakness No chest pain, palpitation No shortness of breath or coughing No abdominal pain, nausea or vomiting No urinary symptoms No any rash or wounds Physical Exam Vital Signs: Vital Signs: Last Vital Signs Temp 99.1 F 10/28/21 07:32 Pulse 79 10/28/21 07:32 Resp 16 10/28/21 07:32 BP 108/65 10/28/21 07:32 Pulse Ox 96 10/28/21 07:32 O2 Del Method 10/28/21 07:32 BMI result Body Mass Index 28.3 Const: Other: General:? alert, awake in no acute distress neck no JVD Resp:? Chest wall moving bilateral, no wheezing CVS: S1,S2,RRR GI:? abdomen soft, nontender, bowel sounds audible Skin: No rash Neuro:? motor grossly intact Objective Data Active Medications Ferrous Sulfate (Ferrous Sulfate 300 Mg/5 Ml Liquid) 300 mg PO DAILY [facility] Last Admin: 10/28/21 08:18 Dose: 300 mg Documented By: SAADIA Thiamine HCl (Thiamine Hcl 100 Mg Tablet) 100 mg PO DAILY [facility] Last Admin: 10/28/21 08:18 Dose: 100 mg Documented By: SAADIA Labs CBC & Chem 7: 09/06/21 06:05 09/28/21 05:32 Assessment and Plan (1) Cognitive impairment: Status: Acute Plan 46-year-old female with of substance abuse presents to the hospital with confusion found to lack capacity to make medical decisions and awaiting placement no acute medical changes remains stable Cognitive impairment No change in mental status suspected secondary to history of polysubstance abuse urine toxicology positive for cocaine, fentanyl, and marijuana although the patient adamantly denies using any illicit substance, her parents confirmed that she was actively using substances Neurology input appreciated, brain changes on imaging consistent with cocaine abuse per speech therapy note on August 08 patient is doing well with her ability to respond to confrontational naming Pych reassessed on 08/12 and? report that she did not have capacity to make decisions, healthcare proxy is invoked case discussed with licensed social worker and occupational therapy E Coli UTI completed course of Abx DVT prophylaxis risk low for DVT as patient is ambulating freely need for inpatient due to cognitive linguistic impairment , waiting safe dis position given that she needs 24-hour observation. Family not able to care for her at home. Quality Stroke Does the patient have a stroke diagnosis?: No VTE Prior VTE?: No VTE Risk Level:: Medical - moderate - high VTE Device Contraindication: Treatment Not Indicated VTE Drug Contraindication: N/A - Med Ordered
[2021-10-28 15:57] VITALS: BP 113/67; PULSE 85; RESP 16; TEMP 36.6; O2SAT 95
[2021-10-29] VITALS: BP 114/55; PULSE 100; RESP 17; TEMP 36.7; O2SAT 95
[2021-10-29 07:59] VITALS: BP 106/63; PULSE 77; RESP 18; TEMP 36.3; O2SAT 96
[2021-10-29] MEDS: Ferrous Sulfate 300 MG/5 ML LIQUID PO (08:58)
[2021-10-29] MEDS: Thiamine HCL 100 MG TABLET PO (08:58)
--- NOTE | 2021-10-29 10:55 | P.PNIM_ITS ---
Subjective Subjective Date of Service: 10/29/21 Interval History: Laying in bed, feels comfortable Denies any fever, chills or shortness of breath No reported other overnight events. Systemic review: No fever, chills or weakness No chest pain, palpitation No shortness of breath or coughing No abdominal pain, nausea or vomiting No urinary symptoms No any rash or wounds Physical Exam Vital Signs: Vital Signs: Last Vital Signs Temp 97.4 F 10/29/21 07:59 Pulse 77 10/29/21 07:59 Resp 18 10/29/21 07:59 BP 106/63 10/29/21 07:59 Pulse Ox 96 10/29/21 07:59 O2 Del Method 10/29/21 07:59 BMI result Body Mass Index 28.3 Const: Other: General:? alert, awake in no acute distress neck no JVD Resp:? Chest wall moving bilateral, no wheezing CVS: S1,S2,RRR GI:? abdomen soft, nontender, bowel sounds audible Skin: No rash Neuro:? motor grossly intact Objective Data Active Medications Ferrous Sulfate (Ferrous Sulfate 300 Mg/5 Ml Liquid) 300 mg PO DAILY [facility] Last Admin: 10/29/21 08:58 Dose: 300 mg Documented By: RONALDO Thiamine HCl (Thiamine Hcl 100 Mg Tablet) 100 mg PO DAILY [facility] Last Admin: 10/29/21 08:58 Dose: 100 mg Documented By: RONALDO Labs CBC & Chem 7: 09/06/21 06:05 09/28/21 05:32 Assessment and Plan (1) Cognitive impairment: Status: Acute Plan 46-year-old female with of substance abuse presents to the hospital with confusion found to lack capacity to make medical decisions and awaiting placement no acute medical changes remains stable Cognitive impairment No change in mental status suspected secondary to history of polysubstance abuse urine toxicology positive for cocaine, fentanyl, and marijuana although the patient adamantly denies using any illicit substance, her parents confirmed that she was actively using substances Neurology input appreciated, brain changes on imaging consistent with cocaine abuse per speech therapy note on August 08 patient is doing well with her ability to respond to confrontational naming Pych reassessed on 08/12 and? report that she did not have capacity to make decisions, healthcare proxy is invoked case discussed with manager social and occupational therapy E Coli UTI completed course of Abx DVT prophylaxis risk low for DVT as patient is ambulating freely need for inpatient due to cognitive linguistic impairment , waiting safe disposi tion given that she needs 24-hour observation. Family not able to care for her at home. Quality Stroke Does the patient have a stroke diagnosis?: No VTE Prior VTE?: No VTE Risk Level:: Medical - moderate - high VTE Device Contraindication: Treatment Not Indicated VTE Drug Contraindication: N/A - Med Ordered
[2021-10-29 15:23] VITALS: BP 115/66; PULSE 88; RESP 18; TEMP 36.8; O2SAT 94
[2021-10-30] VITALS: BP 120/58; PULSE 86; RESP 17; TEMP 36.5; O2SAT 95
[2021-10-30 07:37] VITALS: BP 119/76; PULSE 72; RESP 18; TEMP 36.4; O2SAT 95
[2021-10-30] MEDS: Ferrous Sulfate 300 MG/5 ML LIQUID PO (08:04)
[2021-10-30] MEDS: Thiamine HCL 100 MG TABLET PO (08:04)
--- NOTE | 2021-10-30 08:37 | MHC.CM.PN ---
LATE ENTRY FOR 10/29/21, STEPHEN DISCUSSED CASE W[facility] WHO HAS REVIEWED CASE AND CONFIRMS FACILITY WILL STILL NOT BE ABLE TO OFFER PT BED.
--- NOTE | 2021-10-30 10:38 | P.PNIM_ITS ---
Subjective Subjective Date of Service: 10/30/21 Interval History: Laying in bed, feels comfortable Denies any fever, chills or shortness of breath No reported other overnight events. Systemic review: No fever, chills or weakness No chest pain, palpitation No shortness of breath or coughing No abdominal pain, nausea or vomiting No urinary symptoms No any rash or wounds Physical Exam Vital Signs: Vital Signs: Last Vital Signs Temp 97.5 F 10/30/21 07:37 Pulse 72 10/30/21 07:37 Resp 18 10/30/21 07:37 BP 119/76 10/30/21 07:37 Pulse Ox 95 10/30/21 07:37 O2 Del Method 10/30/21 07:37 BMI result Body Mass Index 28.3 Const: Other: General:? alert, awake in no acute distress neck no JVD Resp:? Chest wall moving bilateral, no wheezing CVS: S1,S2,RRR GI:? abdomen soft, nontender, bowel sounds audible Skin: No rash Neuro:? motor grossly intact Objective Data Active Medications Ferrous Sulfate (Ferrous Sulfate 300 Mg/5 Ml Liquid) 300 mg PO DAILY [facility] Last Admin: 10/30/21 08:04 Dose: 300 mg Documented By: IVANNA Thiamine HCl (Thiamine Hcl 100 Mg Tablet) 100 mg PO DAILY [facility] Last Admin: 10/30/21 08:04 Dose: 100 mg Documented By: IVANNA Labs CBC & Chem 7: 09/06/21 06:05 09/28/21 05:32 Assessment and Plan (1) Cognitive impairment: Status: Acute Plan 46-year-old female with of substance abuse presents to the hospital with confusion found to lack capacity to make medical decisions and awaiting pl acement no acute medical changes remains stable Cognitive impairment No change in mental status suspected secondary to history of polysubstance abuse urine toxicology positive for cocaine, fentanyl, and marijuana although the patient adamantly denies using any illicit substance, her parents confirmed that she was actively using substances Neurology input appreciated, brain changes on imaging consistent with cocaine abuse per speech therapy note on August 08 patient is doing well with her ability to respond to confrontational naming Pych reassessed on 08/12 and? report that she did not have capacity to make decisions, healthcare proxy is invoked case discussed with marriage and family social worker and occupational therapy E Coli UTI completed course of Abx DVT prophylaxis risk low for DVT as patient is ambulating freely need for inpatient due to cognitive linguistic impairment , waiting safe disposition given that she needs 24-hour observation. Family not able to care for her at home. Quality Stroke Does the patient have a stroke diagnosis?: No VTE Prior VTE?: No VTE Risk Level:: Medical - moderate - high VTE Device Contraindication: Treatment Not Indicated VTE Drug Contraindication: N/A - Med Ordered
[2021-10-30 16:00] VITALS: BP 116/56; PULSE 90; RESP 14; TEMP 36.6; O2SAT 93
[2021-10-31] VITALS: BP 111/64; PULSE 82; RESP 18; TEMP 36.5; O2SAT 95
[2021-10-31 07:50] VITALS: BP 122/70; PULSE 77; RESP 19; TEMP 36.6; O2SAT 95
[2021-10-31] MEDS: Thiamine HCL 100 MG TABLET PO (08:35)
[2021-10-31] MEDS: Ferrous Sulfate 300 MG/5 ML LIQUID PO (08:35)
--- NOTE | 2021-10-31 10:44 | HO.PM.IMPN ---
Subjective Subjective Date of Service: 10/31/21 Interval History: Laying in bed, feels comfortable Denies any fever, chills or shortness of breath No reported other overnight events. Systemic review: No fever, chills or weakness No chest pain, palpitation No shortness of breath or coughing No abdominal pain, nausea or vomiting No urinary symptoms No any rash or wounds Physical Exam Vital Signs: Vital Signs: Last Vital Signs Temp 97.9 F 10/31/21 07:50 Pulse 77 10/31/21 07:50 Resp 19 10/31/21 07:50 BP 122/70 10/31/21 07:50 Pulse Ox 95 10/31/21 07:50 O2 Del Method 10/31/21 07:50 BMI result Body Mass Index 28.3 Const: Other: General:? alert, awake in no acute distress neck no JVD Resp:? Chest wall moving bilateral, no wheezing CVS: S1,S2,RRR GI:? abdomen soft, nontender, bowel sounds audible Skin: No rash Neuro:? motor grossly intact Objective Data Active Medications Ferrous Sulfate (Ferrous Sulfate 300 Mg/5 Ml Liquid) 300 mg PO DAILY [facility] Last Admin: 10/31/21 08:35 Dose: 300 mg Documented By: IVANNA Thiamine HCl (Thiamine Hcl 100 Mg Tablet) 100 mg PO DAILY [facility] Last Admin: 10/31/21 08:35 Dose: 100 mg Documented By: IVANNA Labs CBC & Chem 7: 09/06/21 06:05 09/28/21 05:32 Assessment and Plan (1) Cognitive impairment: Status: Acute Plan 46-year-old female with of substance abuse presents to the hospital with confusion found to lack capacity to make medical decisions and awaiting placement no acute medical changes remains stable Cognitive impairment No change in mental status suspected secondary to history of polysubstance abuse urine toxicology positive for cocaine, fentanyl, and marijuana although the patient adamantly denies using any illicit substance, her parents confirmed that she was actively using substances Neurology input appreciated, brain changes on imaging consistent with cocaine abuse per speech therapy note on August 08 patient is doing well with her ability to respond to confrontational naming Pych reassessed on 08/12 and? report that she did not have capacity to make decisions, healthcare proxy is invoked case discussed with high school social studies teacher and occupational therapy E Coli UTI completed course of Abx DVT prophylaxis risk low for DVT as patient is ambulating freely need for inpatient due to cognitive linguistic impairment , waiting safe disposition given that she needs 24-hour observation. Family not able to care for her at home. Quality Stroke Does the patient have a stroke diagnosis?: No VTE Prior VTE?: No VTE Risk Level:: Medical - moderate - high VTE Device Contraindication: Treatment Not Indicated VTE Drug Contraindication: N/A - Med Ordered
--- NOTE | 2021-10-31 13:55 | MHC.CM.PN ---
CM CALLED PATIENT'S FATHER, JOHNATHAN, AT [phone] REGARDING HIS REQUEST TO DEFER FROM BEING PRIMARY HCP FOR HER. HE REPORTS HE LONGER WANTS TO BE PRIMARY. HE VERBALLY ACKNOWLEDGED HE IS DEFERRING PATIENT'S PRIMARY HCP TO SECONDARY. REPORTS HIS WILL BE PRIMARY HCP. CM DESKTOP MANAGER UPDATED. STEPHEN HAS BEEN RESEARCHING THE ACQUIRED BRAIN INJURY PROGRAM THROUGH [facility] TO SEE IF PATIENT QUALIFIES FOR THEIR SERVICES.
[2021-10-31 16:00] VITALS: BP 121/67; RESP 18; TEMP 36.8; O2SAT 95
[2021-10-31 23:50] VITALS: BP 100/51; PULSE 83; RESP 18; TEMP 36.2; O2SAT 94
[2021-11-01] MEDS: Thiamine HCL 100 MG TABLET PO (07:15)
[2021-11-01] MEDS: Ferrous Sulfate 300 MG/5 ML LIQUID PO (07:15)
[2021-11-01 08:00] VITALS: BP 120/72; PULSE 86; RESP 16; TEMP 36.8; O2SAT 94
--- NOTE | 2021-11-01 11:40 | P.PNIM_ITS ---
Subjective Subjective Date of Service: 11/01/21 Interval History: Laying in bed, feels comfortable Denies any fever, chills or shortness of breath No reported other overnight events. Systemic review: No fever, chills or weakness No chest pain, palpitation No shortness of breath or coughing No abdominal pain, nausea or vomiting No urinary symptoms No any rash or wounds Physical Exam Vital Signs: Vital Signs: Last Vital Signs Temp 98.2 F 11/01/21 08:00 Pulse 86 11/01/21 08:00 Resp 16 11/01/21 08:00 BP 120/72 11/01/21 08:00 Pulse Ox 94 11/01/21 08:00 O2 Del Method 11/01/21 08:00 BMI result Body Mass Index 28.3 Const: Other: General:? alert, awake in no acute distress neck no JVD Resp:? Chest wall moving bilateral, no wheezing CVS: S1,S2,RRR GI:? abdomen soft, nontender, bowel sounds audible Skin: No rash Neuro:? motor grossly intact Objective Data Active Medications Ferrous Sulfate (Ferrous Sulfate 300 Mg/5 Ml Liquid) 300 mg PO DAILY [facility] Last Admin: 11/01/21 07:15 Dose: 300 mg Documented By: RICA Thiamine HCl (Thiamine Hcl 100 Mg Tablet) 100 mg PO DAILY [facility] Last Admin: 11/01/21 07:15 Dose: 100 mg Documented By: RICA Labs CBC & Chem 7: 09/06/21 06:05 09/28/21 05:32 Assessment and Plan (1) Cognitive impairment: Status: Acute Plan 46-year-old female with of substance abuse presents to the hospital with confusion found to lack capacity to make medical decisions and awaiting placement no acute medical changes remains stable Cognitive impairment No change in mental status suspected secondary to history of polysubstance abuse urine toxicology positive for cocaine, fentanyl, and marijuana although the patient adamantly denies using any illicit substance, her parents confirmed that she was actively using substances Neurology input appreciated, brain changes on imaging consistent with cocaine abuse per speech therapy note on August 08 patient is doing well with her ability to respond to confrontational naming Pych reassessed on 08/12 and? report that she did not have capacity to make decisions, healthcare proxy is invoked case discussed with high school social science teacher and occupational therapy E Coli UTI completed course of Abx DVT prophylaxis risk low for DVT as patient is ambulating freely need for inpatient due to cognitive linguistic impairment , waiting safe dispo sition given that she needs 24-hour observation. Family not able to care for her at home. Quality Stroke Does the patient have a stroke diagnosis?: No VTE Prior VTE?: No VTE Risk Level:: Medical - moderate - high VTE Device Contraindication: Treatment Not Indicated VTE Drug Contraindication: N/A - Med Ordered
[2021-11-01 15:28] VITALS: BP 110/68; PULSE 81; RESP 20; TEMP 36.6; O2SAT 96
[2021-11-01 23:56] VITALS: BP 92/55; PULSE 78; RESP 18; TEMP 36.3; O2SAT 94
[2021-11-02 07:37] VITALS: BP 120/72; PULSE 71; RESP 18; TEMP 36.4; O2SAT 96
[2021-11-02] MEDS: Ferrous Sulfate 300 MG/5 ML LIQUID PO (08:04)
[2021-11-02] MEDS: Thiamine HCL 100 MG TABLET PO (08:04)
--- NOTE | 2021-11-02 10:10 | HO.PM.IMPN ---
Subjective Subjective Date of Service: 11/02/21 Interval History: Laying in bed, feels comfortable Denies any fever, chills or shortness of breath No reported other overnight events. Systemic review: No fever, chills or weakness No chest pain, palpitation No shortness of breath or coughing No abdominal pain, nausea or vomiting No urinary symptoms No any rash or wounds Physical Exam Vital Signs: Vital Signs: Last Vital Signs Temp 97.5 F 11/02/21 07:37 Pulse 71 11/02/21 07:37 Resp 18 11/02/21 07:37 BP 120/72 11/02/21 07:37 Pulse Ox 96 11/02/21 07:37 O2 Del Method 11/02/21 07:37 BMI result Body Mass Index 28.3 Const: Other: General:? alert, awake in no acute distress neck no JVD Resp:? Chest wall moving bilateral, no wheezing CVS: S1,S2,RRR GI:? abdomen soft, nontender, bowel sounds audible Skin: No rash Neuro:? motor grossly intact Objective Data Active Medications Ferrous Sulfate (Ferrous Sulfate 300 Mg/5 Ml Liquid) 300 mg PO DAILY [facility] Last Admin: 11/02/21 08:04 Dose: 300 mg Documented By: EVERARDO Thiamine HCl (Thiamine Hcl 100 Mg Tablet) 100 mg PO DAILY [facility] Last Admin: 11/02/21 08:04 Dose: 100 mg Documented By: EVERARDO Labs CBC & Chem 7: 09/06/21 06:05 09/28/21 05:32 Assessment and Plan (1) Cognitive impairment: Status: Acute Plan 46-year-old female with of substance abuse presents to the hospital with confusion found to lack capacity to make medical decisions and awaiting placement no acute medical changes remains stable Cognitive impairment No change in mental status suspected secondary to history of polysubstance abuse urine toxicology positive for cocaine, fentanyl, and marijuana although the patient adamantly denies using any illicit substance, her parents confirmed that she was actively using substances Neurology input appreciated, brain changes on imaging consistent with cocaine abuse per speech therapy note on August 08 patient is doing well with her ability to respond to confrontational naming Pych reassessed on 08/12 and? report that she did not have capacity to make decisions, healthcare proxy is invoked case discussed with 7th grade social studies teacher and occupational therapy E Coli UTI completed course of Abx DVT prophylaxis risk low for DVT as patient is ambulating freely need for inpatient due to cognitive linguistic impairment , waiting safe disposition given that she needs 24-hour observation. Family not able to care for her at home. Quality Stroke Does the patient have a stroke diagnosis?: No VTE Prior VTE?: No VTE Risk Level:: Medical - moderate - high VTE Device Contraindication: Treatment Not Indicated VTE Drug Contraindication: N/A - Med Ordered
[2021-11-02 15:28] VITALS: BP 108/62; PULSE 72; RESP 17; TEMP 36.6; O2SAT 95
[2021-11-03] VITALS: BP 105/60; PULSE 92; RESP 18; TEMP 36.2; O2SAT 95
[2021-11-03 07:30] VITALS: BP 121/66; PULSE 73; RESP 18; TEMP 36.4; O2SAT 95
[2021-11-03] MEDS: Thiamine HCL 100 MG TABLET PO (09:31)
[2021-11-03] MEDS: Ferrous Sulfate 300 MG/5 ML LIQUID PO (09:31)
--- NOTE | 2021-11-03 11:30 | P.PNIM_ITS ---
Subjective Subjective Date of Service: 11/03/21 Interval History: Laying in bed, feels comfortable Denies any fever, chills or shortness of breath No reported other overnight events. Systemic review: No fever, chills or weakness No chest pain, palpitation No shortness of breath or coughing No abdominal pain, nausea or vomiting No urinary symptoms No any rash or wounds Physical Exam Vital Signs: Vital Signs: Last Vital Signs Temp 97.5 F 11/03/21 07:30 Pulse 73 11/03/21 07:30 Resp 18 11/03/21 07:30 BP 121/66 11/03/21 07:30 Pulse Ox 95 11/03/21 07:30 O2 Del Method 11/03/21 07:30 BMI result Body Mass Index 28.3 Const: Other: General:? alert, awake in no acute distress neck no JVD Resp:? Chest wall moving bilateral, no wheezing CVS: S1,S2,RRR GI:? abdomen soft, nontender, bowel sounds audible Skin: No rash Neuro:? motor grossly intact Objective Data Active Medications Ferrous Sulfate (Ferrous Sulfate 300 Mg/5 Ml Liquid) 300 mg PO DAILY [facility] Last Admin: 11/03/21 09:31 Dose: 300 mg Documented By: PABLO Thiamine HCl (Thiamine Hcl 100 Mg Tablet) 100 mg PO DAILY [facility] Last Admin: 11/03/21 09:31 Dose: 100 mg Documented By: PABLO Labs CBC & Chem 7: 09/06/21 06:05 09/28/21 05:32 Assessment and Plan (1) Cognitive impairment: Status: Acute Plan 46-year-old female with of substance abuse presents to the hospital with confusion found to lack capacity to make medical decisions and awaiting placement no acute medical changes remains stable Cognitive impairment No change in mental status suspected secondary to history of polysubstance abuse urine toxicology positive for cocaine, fentanyl, and marijuana although the patient adamantly denies using any illicit substance, her parents confirmed that she was actively using substances Neurology input appreciated, brain changes on imaging consistent with cocaine abuse per speech therapy note on August 08 patient is doing well with her ability to respond to confrontational naming Pych reassessed on 08/12 and? report that she did not have capacity to make decisions, healthcare proxy is invoked case discussed with licensed social worker and occupational therapy E Coli UTI completed course of Abx DVT prophylaxis risk low for DVT as patient is ambulating freely need for inpatient due to cognitive linguistic impairment , waiting safe dis position given that she needs 24-hour observation. Family not able to care for her at home. Quality Stroke Does the patient have a stroke diagnosis?: No VTE Prior VTE?: No VTE Risk Level:: Medical - moderate - high VTE Device Contraindication: Treatment Not Indicated VTE Drug Contraindication: N/A - Med Ordered
[2021-11-03 15:41] VITALS: BP 120/74; PULSE 77; RESP 20; TEMP 36.6; O2SAT 96
[2021-11-03 23:21] VITALS: BP 101/69; PULSE 99; RESP 16; TEMP 36.6; O2SAT 96
[2021-11-04 07:55] VITALS: BP 118/67; PULSE 82; RESP 18; TEMP 36.1; O2SAT 95
--- NOTE | 2021-11-04 10:09 | P.PNIM_ITS ---
Subjective Subjective Date of Service: 11/04/21 Interval History: Laying in bed, feels comfortable Denies any fever, chills or shortness of breath No reported other overnight events. Systemic review: No fever, chills or weakness No chest pain, palpitation No shortness of breath or coughing No abdominal pain, nausea or vomiting No urinary symptoms No any rash or wounds Review of Systems Review of Systems: Yes all other systems are reviewed and are negative Physical Exam Vital Signs: Vital Signs: Last Vital Signs Temp 96.9 F 11/04/21 07:55 Pulse 82 11/04/21 07:55 Resp 18 11/04/21 07:55 BP 118/67 11/04/21 07:55 Pulse Ox 95 11/04/21 07:55 O2 Del Method 11/04/21 07:55 BMI result Body Mass Index 28.3 Const: Other: General:? alert, awake in no acute distress neck no JVD Resp:? Chest wall moving bilateral, no wheezing CVS: S1,S2,RRR GI:? abdomen soft, nontender, bowel sounds audible Skin: No rash Neuro:? motor grossly intact Objective Data Active Medications Ferrous Sulfate (Ferrous Sulfate 300 Mg/5 Ml Liquid) 300 mg PO DAILY [facility] Last Admin: 11/03/21 09:31 Dose: 300 mg Documented By: PABLO Thiamine HCl (Thiamine Hcl 100 Mg Tablet) 100 mg PO DAILY [facility] Last Admin: 11/03/21 09:31 Dose: 100 mg Documented By: PABLO Labs CBC & Chem 7: 09/06/21 06:05 09/28/21 05:32 Assessment and Plan (1) Cognitive impairment: Status: Acute Plan 46-year-old female with of substance abuse presents to the hospital with confusion found to lack capacity to make medical decisions and awaiting placement no acute medical changes remains stable Cognitive impairment No change in mental status suspected secondary to history of polysubstance abuse urine toxicology positive for cocaine, fentanyl, and marijuana although the patient adamantly denies using any illicit substance, her parents confirmed that she was actively using substances Neurology input appreciated, brain changes on imaging consistent with cocaine abuse per speech therapy note on August 08 patient is doing well with her ability to respond to confrontational naming Pych reassessed on 08/12 and? report that she did not have capacity to make decisions, healthcare proxy is invoked case discussed with social worker psychiatric and occupational therapy E Coli UTI completed course of Abx DVT prophylaxis risk low for DVT as patient is ambulating freely need for inpatient due to cognitive linguistic impairment , waiting safe disposition given that she needs 24-hour observation. Family not able to care for her at home. Quality Stroke Does the patient have a stroke diagnosis?: No VTE Prior VTE?: No VTE Risk Level:: Medical - moderate - high VTE Device Contraindication: Treatment Not Indicated VTE Drug Contraindication: N/A - Med Ordered
[2021-11-04] MEDS: Ferrous Sulfate 300 MG/5 ML LIQUID PO (10:35)
[2021-11-04] MEDS: Thiamine HCL 100 MG TABLET PO (10:35)
--- NOTE | 2021-11-04 11:08 | MHC.CM.PN ---
PATIENT IS MEDICALLY STABLE. AWAITING SAFE DISCHARGE DISPOSTION. CM DIRECTOR WAITING FOR RESPONSE FROM BRAIN INJURY PROGRAM THROUGH [facility]. SNF's HAVE BEEN UPDATED.
[2021-11-04 15:53] VITALS: BP 128/63; PULSE 90; RESP 18; TEMP 36.3; O2SAT 97
[2021-11-05] VITALS: BP 95/58; PULSE 90; RESP 16; TEMP 36.1; O2SAT 94
[2021-11-05 07:40] VITALS: BP 120/67; PULSE 84; RESP 18; TEMP 36.3; O2SAT 94
[2021-11-05] MEDS: Ferrous Sulfate 300 MG/5 ML LIQUID PO (09:15)
[2021-11-05] MEDS: Thiamine HCL 100 MG TABLET PO (09:15)
--- NOTE | 2021-11-05 11:10 | HO.PM.IMPN ---
Subjective Subjective Date of Service: 11/05/21 Interval History: Laying in bed, feels comfortable Denies any fever, chills or shortness of breath No reported other overnight events. Systemic review: No fever, chills or weakness No chest pain, palpitation No shortness of breath or coughing No abdominal pain, nausea or vomiting No urinary symptoms No any rash or wounds Physical Exam Vital Signs: Vital Signs: Last Vital Signs Temp 97.3 F 11/05/21 07:40 Pulse 84 11/05/21 07:40 Resp 18 11/05/21 07:40 BP 120/67 11/05/21 07:40 Pulse Ox 94 11/05/21 07:40 O2 Del Method 11/05/21 07:40 BMI result Body Mass Index 28.3 Const: Other: General:? alert, awake in no acute distress neck no JVD Resp:? Chest wall moving bilateral, no wheezing CVS: S1,S2,RRR GI:? abdomen soft, nontender, bowel sounds audible Skin: No rash Neuro:? motor grossly intact Objective Data Active Medications Ferrous Sulfate (Ferrous Sulfate 300 Mg/5 Ml Liquid) 300 mg PO DAILY [facility] Last Admin: 11/05/21 09:15 Dose: 300 mg Documented By: TRIPP Thiamine HCl (Thiamine Hcl 100 Mg Tablet) 100 mg PO DAILY [facility] Last Admin: 11/05/21 09:15 Dose: 100 mg Documented By: TRIPP Labs CBC & Chem 7: 09/06/21 06:05 09/28/21 05:32 Assessment and Plan (1) Cognitive impairment: Status: Acute Plan 46-year-old female with of substance abuse presents to the hospital with confusion found to lack capacity to make medical decisions and awaiting placement no acute medical changes remains stable Cognitive impairment No change in mental status suspected secondary to history of polysubstance abuse urine toxicology positive for cocaine, fentanyl, and marijuana although the patient adamantly denies using any illicit substance, her parents confirmed that she was actively using substances Neurology input appreciated, brain changes on imaging consistent with cocaine abuse per speech therapy note on August 08 patient is doing well with her ability to respond to confrontational naming Pych reassessed on 08/12 and? report that she did not have capacity to make decisions, healthcare proxy is invoked case discussed with social media marketing specialist and occupational therapy E Coli UTI completed course of Abx DVT prophylaxis risk low for DVT as patient is ambulating freely need for inpatient due to cognitive linguistic impairment , waiting safe disposition given that she needs 24-hour observation. Family not able to care for her at home. Quality Stroke Does the patient have a stroke diagnosis?: No VTE Prior VTE?: No VTE Risk Level:: Medical - moderate - high VTE Device Contraindication: Treatment Not Indicated VTE Drug Contraindication: N/A - Med Ordered
--- NOTE | 2021-11-05 13:52 | MHC.CM.PN ---
EMR REVIEWED, PT REMAINS MEDICALLY CLEARED FOR D/C, PER CM DIRECTOR SHE HAS HAD NO RESPONSE FROM [facility], NO BED OFFERS FOR LTC AND NO FEMALE BED AT [facility] CM STILL AWAITING RESPONSE FROM [facility] IN [facility]. CM WILL CONT TO FOLLOW REFERRALS AND D/C NEEDS.
[2021-11-05 16:00] VITALS: BP 121/66; PULSE 88; RESP 19; TEMP 36.4; O2SAT 93
[2021-11-06] VITALS: BP 115/66; PULSE 75; RESP 16; TEMP 36.6; O2SAT 96
[2021-11-06 07:45] VITALS: BP 115/73; PULSE 82; RESP 18; TEMP 36.1; O2SAT 95
[2021-11-06] MEDS: Ferrous Sulfate 300 MG/5 ML LIQUID PO (08:23)
[2021-11-06] MEDS: Thiamine HCL 100 MG TABLET PO (08:23)
[2021-11-06 16:00] VITALS: PULSE 76; RESP 18; TEMP 37; O2SAT 92
--- NOTE | 2021-11-06 17:47 | HO.PM.IMPN ---
Subjective Subjective Date of Service: 11/06/21 Interval History: seen and examined this morning follow up for placement no overnight events No specific complaints Tolerating diet, voiding without difficulty Review of Systems Review of Systems: Yes all other systems are reviewed and are negative Constitutional Constitutional: Denies chills and Denies fever(s) Cardiovascular Cardiovascular: Denies chest pain and Denies dyspnea Respiratory Respiratory: Denies cough and Denies dyspnea Gastrointestinal Gastrointestinal: Denies abdominal pain Physical Exam Vital Signs: Vital Signs: Last Vital Signs Temp 97.0 F 11/06/21 07:45 Pulse 82 11/06/21 07:45 Resp 18 11/06/21 07:45 BP 115/73 11/06/21 07:45 Pulse Ox 95 11/06/21 07:45 O2 Del Method 11/06/21 07:45 BMI result Body Mass Index 28.3 Const: General: cooperative, comfortable, no acute distress, alert and awake Nutritional Appearance: average body habitus Eyes: Pupils: Equal, round and reactive pupils present EOM: EOMs intact bilaterally Resp: Effort & Inspection: normal respiratory effort and able to speak in complete sentences Auscultation: clear to auscultation bilaterally Cardio: Rate: regular rate Heart sounds: S1 normal heart sound present and S2 normal heart sound present GI: Inspection: No distended Palpation (GI): Soft to palpation and nontender Neuro: Cranial nerves: Yes Equal, round and reactive pupils present Extrem: Other: Able to move all 4 extremities spontaneously General: Yes no pedal edema Objective Data Active Medications Ferrous Sulfate (Ferrous Sulfate 300 Mg/5 Ml Liquid) 300 mg PO DAILY [facility] Last Admin: 11/06/21 08:23 Dose: 300 mg Documented By: TRIPP Thiamine HCl (Thiamine Hcl 100 Mg Tablet) 100 mg PO DAILY [facility] Last Admin: 11/06/21 08:23 Dose: 100 mg Documented By: TRIPP Labs CBC & Chem 7: 09/06/21 06:05 09/28/21 05:32 Assessment and Plan (1) Cognitive impairment: Status: Acute Plan 46-year-old female with of substance abuse presents to the hospital with confusion found to lack capacity to make medical decisions and awaiting placement no acute medical changes remains stable Cognitive impairment No change in mental status suspected secondary to history of polysubstance abuse urine toxicology positive for cocaine, fentanyl, and marijuana although the patient adamantly denies using any illicit substance, her parents confirmed that she was actively using substances Neurology input appreciated, brain changes on imaging consistent with cocaine abuse per speech therapy note on August 08 patient is doing well with her ability to respond to confrontational naming Pych reassessed on 08/12 and? report that she did not have capacity to make decisions, healthcare proxy is invoked case discussed with social media specialist and occupational therapy E Coli UTI completed course of Abx DVT prophylaxis risk low for DVT as patient is ambulating freely attending - dr. angeles need for inpatient due to cognitive linguistic impairment , waiting safe disposition given that she needs 24-hour observation. Family not able to care for her at home. Quality Stroke Does the patient have a stroke diagnosis?: No VTE Prior VTE?: No VTE Risk Level:: Medical - moderate - high VTE Device Contraindication: Treatment Not Indicated VTE Drug Contraindication: N/A - Med Ordered
[2021-11-06 23:45] VITALS: BP 106/59; PULSE 81; RESP 16; TEMP 37.4; O2SAT 95
[2021-11-07 07:59] VITALS: BP 120/76; PULSE 83; RESP 18; TEMP 36.5; O2SAT 95
[2021-11-07] MEDS: Thiamine HCL 100 MG TABLET PO (08:18)
[2021-11-07] MEDS: Ferrous Sulfate 300 MG/5 ML LIQUID PO (08:18)
[2021-11-07 12:45] LABS: Hematocrit 42.4 % (37.0-47.0); Hemoglobin 13.8 g/dl (12.0-16.0); Mean Corpuscular HGB Conc 32.5 g/dl (31.0-35.0); Mean Platelet Volume 9.6 fL (9.4-12.3); Platelet Count 334 X10*3/uL (160-400); Red Blood Count 4.93 X10*6/uL (4.20-5.50); Red Cell Distribution Width 13.5 % (11.0-16.0); White Blood Count 10.9 X10*3/uL (4.8-10.8)
[2021-11-07 12:59] LABS: Anion Gap 16 (12-20); Blood Urea Nitrogen 15 mg/dL (9-16); Calcium 9.7 mg/dL (8.4-10.2); Carbon Dioxide 28 mmol/L (22-29); Chloride 101 mmol/L (96-108); Creatinine Clr Calc Pharmacy 77.4; Estimated Glomerular Filt Rate > 60; Glucose Random 86 mg/dL (60-115); Potassium 4.8 mmol/L (3.3-5.1); Sodium 140 mmol/L (135-145)
--- NOTE | 2021-11-07 15:57 | P.PNIM_ITS ---
Subjective Subjective Date of Service: 11/07/21 Interval History: seen and examined this morning Follow-up for placement no overnight events no specific complaints Review of Systems Review of Systems: Yes all other systems are reviewed and are negative Constitutional Constitutional: Denies chills and Denies fever(s) Cardiovascular Cardiovascular: Denies chest pain, Denies palpitations and Denies dyspnea Respiratory Respiratory: Denies cough and Denies dyspnea Gastrointestinal Gastrointestinal: Denies abdominal pain Endocrine Endocrine: Denies palpitations Physical Exam Vital Signs: Vital Signs: Last Vital Signs Temp 97.7 F 11/07/21 07:59 Pulse 83 11/07/21 07:59 Resp 18 11/07/21 07:59 BP 120/76 11/07/21 07:59 Pulse Ox 95 11/07/21 07:59 O2 Del Method 11/07/21 07:59 BMI result Body Mass Index 28.3 Const: General: cooperative, comfortable, no acute distress, alert and awake Nutritional Appearance: average body habitus Eyes: Pupils: Equal, round and reactive pupils present EOM: EOMs intact bilaterally Resp: Effort & Inspection: normal respiratory effort and able to speak in complete sentences Auscultation: clear to auscultation bilaterally Cardio: Rate: regular rate Heart sounds: S1 normal heart sound present and S2 normal heart sound present GI: Inspection: No distended Palpation (GI): Soft to palpation and nontender Neuro: Cranial nerves: Yes Equal, round and reactive pupils present Extrem: Other: Able to move all 4 extremities spontaneously General: Yes no pedal edema Objective Data Active Medications Ferrous Sulfate (Ferrous Sulfate 300 Mg/5 Ml Liquid) 300 mg PO DAILY [facility] Last Admin: 11/07/21 08:18 Dose: 300 mg Documented By: TRIPP Thiamine HCl (Thiamine Hcl 100 Mg Tablet) 100 mg PO DAILY [facility] Last Admin: 11/07/21 08:18 Dose: 100 mg Documented By: TRIPP Labs CBC & Chem 7: 11/07/21 12:30 11/07/21 12:38 Labs: Laboratory Results - last 24 hr 11/07/21 11/07/21 12:30 12:38 MCV 86.0 MCH 28.0 MCHC 32.5 RDW 13.5 Plt Count 334 MPV 9.6 Absolute Nucleated RBC 0.000 Nucleated RBC % (auto) 0.0 Anion Gap 16 Estim Creat Clear Calc 77.4 Estimated GFR > 60 Random Glucose 86 Calcium 9.7 Assessment and Plan (1) Cognitive impairment: Status: Acute Plan 46-year-old female with of substance abuse presents to the hospital with confusion found to lack capacity to make medical decisions and awaiting placement no acute medical changes remains stable Cognitive impairment No change in mental status suspected secondary to history of polysubstance abuse urine toxicology positive for cocaine, fentanyl, and marijuana although the patient adamantly denies using any illicit substance, her parents confirmed that she was actively using substances Neurology input appreciated, brain changes on imaging consistent with cocaine abuse per speech therapy note on August 08 patient is doing well with her ability to respond to confrontational naming Pych reassessed on 08/12 and? report that she did not have capacity to make decisions, healthcare proxy is invoked case discussed with social human services assistants and occupational therapy E Coli UTI completed course of Abx DVT prophylaxis risk low risk - mechanical devices attending - dr. angeles need for inpatient due to cognitive linguistic impairment , waiting safe disposition given that she needs 24-hour observation. Family not able to care for her at home. Quality Stroke Does the patient have a stroke diagnosis?: No VTE Prior VTE?: No VTE Risk Level:: Medical - moderate - high VTE Device Contraindication: Treatment Not Indicated VTE Drug Contraindication: N/A - Med Ordered
[2021-11-07 16:00] VITALS: BP 102/64; PULSE 87; RESP 16; TEMP 36.8; O2SAT 96
[2021-11-08] VITALS: BP 109/61; PULSE 88; RESP 18; TEMP 36.6; O2SAT 96
[2021-11-08 08:00] VITALS: BP 125/68; PULSE 78; RESP 18; TEMP 36.7; O2SAT 97
[2021-11-08] MEDS: Ferrous Sulfate 300 MG/5 ML LIQUID PO (10:18)
[2021-11-08] MEDS: Thiamine HCL 100 MG TABLET PO (10:18)
--- NOTE | 2021-11-08 11:42 | P.PNIM_ITS ---
Subjective Subjective Date of Service: 11/08/21 Interval History: Follow-up for placement no overnight events no specific complaints Review of Systems Review of Systems: Yes all other systems are reviewed and are negative Constitutional Constitutional: Denies chills and Denies fever(s) Cardiovascular Cardiovascular: Denies chest pain, Denies palpitations and Denies dyspnea Respiratory Respiratory: Denies cough and Denies dyspnea Gastrointestinal Gastrointestinal: Denies abdominal pain Endocrine Endocrine: Denies palpitations Physical Exam Vital Signs: Vital Signs: Last Vital Signs Temp 98.1 F 11/08/21 08:00 Pulse 78 11/08/21 08:00 Resp 18 11/08/21 08:00 BP 125/68 11/08/21 08:00 Pulse Ox 97 11/08/21 08:00 O2 Del Method 11/08/21 08:00 BMI result Body Mass Index 28.3 Appearing in no acute distress lung sounds are clear to auscultation heart regular rate rhythm, clear S1, S2 positive bowel sounds, abdomen is soft, nontender neuro patient is alert Objective Data Active Medications Ferrous Sulfate (Ferrous Sulfate 300 Mg/5 Ml Liquid) 300 mg PO DAILY [facility] Last Admin: 11/08/21 10:18 Dose: 300 mg Documented By: AMIRAH Thiamine HCl (Thiamine Hcl 100 Mg Tablet) 100 mg PO DAILY [facility] Last Admin: 11/08/21 10:18 Dose: 100 mg Documented By: AMIRAH Labs CBC & Chem 7: 11/07/21 12:30 11/07/21 12:38 Labs: Laboratory Results - last 24 hr 11/07/21 11/07/21 12:30 12:38 MCV 86.0 MCH 28.0 MCHC 32.5 RDW 13.5 Plt Count 334 MPV 9.6 Absolute Nucleated RBC 0.000 Nucleated RBC % (auto) 0.0 Anion Gap 16 Estim Creat Clear Calc 77.4 Estimated GFR > 60 Random Glucose 86 Calcium 9.7 Assessment and Plan (1) Cognitive impairment: Status: Acute Plan 46-year-old female with of substance abuse presents to the hospital with confusion found to lack capacity to make medical decisions and awaiting placement no acute medical changes remains stable Cognitive impairment No change in mental status suspected secondary to history of polysubstance abuse urine toxicology positive for cocaine, fentanyl, and marijuana although the patient adamantly denies using any illicit substance, her parents confirmed that she was actively using substances Neurology input appreciated, brain changes on imaging consistent with cocaine abuse per speech therapy note on August 08 patient is doing well with her ability to respond to confrontational naming Pych reassessed on 08/12 and? report that she did not have capacity to make decisions, healthcare proxy is invoked case discussed with social welfare clerk and occupational therapy E Coli UTI completed course of Abx DVT prophylaxis risk low risk - mechanical devices attending - dr. Chino need for inpatient due to cognitive linguistic impairment , waiting safe disposition given that she needs 24-hour observation. Family not able to care for her at home. Quality Stroke Does the patient have a stroke diagnosis?: No VTE Prior VTE?: No VTE Risk Level:: Medical - moderate - high VTE Device Contraindication: Treatment Not Indicated VTE Drug Contraindication: N/A - Med Ordered
[2021-11-08 15:42] VITALS: BP 107/59; PULSE 86; RESP 15; TEMP 36.6; O2SAT 94
[2021-11-08 23:55] VITALS: BP 112/59; PULSE 86; RESP 14; TEMP 36.6; O2SAT 92
[2021-11-09 08:00] VITALS: BP 118/69; PULSE 82; RESP 18; TEMP 36.3; O2SAT 94
[2021-11-09] MEDS: Thiamine HCL 100 MG TABLET PO (08:27)
[2021-11-09] MEDS: Ferrous Sulfate 300 MG/5 ML LIQUID PO (08:27)
--- NOTE | 2021-11-09 08:37 | P.PNIM_ITS ---
Subjective Subjective Date of Service: 11/09/21 Interval History: Follow-up for placement no overnight events no specific complaints Review of Systems Review of Systems: Yes all other systems are reviewed and are negative Constitutional Constitutional: Denies chills and Denies fever(s) Cardiovascular Cardiovascular: Denies chest pain, Denies palpitations and Denies dyspnea Respiratory Respiratory: Denies cough and Denies dyspnea Gastrointestinal Gastrointestinal: Denies abdominal pain Endocrine Endocrine: Denies palpitations Physical Exam Vital Signs: Vital Signs: Last Vital Signs Temp 97.4 F 11/09/21 08:00 Pulse 82 11/09/21 08:00 Resp 18 11/09/21 08:00 BP 118/69 11/09/21 08:00 Pulse Ox 94 11/09/21 08:00 O2 Del Method 11/09/21 08:00 BMI result Body Mass Index 28.3 Appearing in no acute distress lung sounds are clear to auscultation heart regular rate rhythm positive bowel sounds neuro patient is alert Objective Data Active Medications Ferrous Sulfate (Ferrous Sulfate 300 Mg/5 Ml Liquid) 300 mg PO DAILY [facility] Last Admin: 11/09/21 08:27 Dose: 300 mg Documented By: ENRIQUE Thiamine HCl (Thiamine Hcl 100 Mg Tablet) 100 mg PO DAILY [facility] Last Admin: 11/09/21 08:27 Dose: 100 mg Documented By: ENRIQUE Labs CBC & Chem 7: 11/07/21 12:30 11/07/21 12:38 Assessment and Plan (1) Cognitive impairment: Status: Acute Plan 46-year-old female with of substance abuse presents to the hospital with confusion found to lack capacity to make medical decisions and awaiting placement no acute medical changes remains stable Cognitive impairment No change in mental status suspected secondary to history of polysubstance abuse urine toxicology positive for cocaine, fentanyl, and marijuana although the patient adamantly denies using any illicit substance, her parents confirmed that she was actively using substances Neurology input appreciated, brain changes on imaging consistent with cocaine abuse per speech therapy note on August 08 patient is doing well with her ability to respond to confrontational naming Pych reassessed on 08/12 and? report that she did not have capacity to make decisions, healthcare proxy is invoked case discussed with social human services assistants and occupational therapy E Coli UTI completed course of Abx DVT prophylaxis risk low risk - mechanical devices attending - dr. Chino need for inpatient due to cognitive linguistic impairment , waiting safe disposition given that she needs 24-hour observation. Family not able to care for her at home. Quality Stroke Does the patient have a stroke diagnosis?: No VTE Prior VTE?: No VTE Risk Level:: Medical - moderate - high VTE Device Contraindication: Treatment Not Indicated VTE Drug Contraindication: N/A - Med Ordered
[2021-11-09 16:02] VITALS: BP 134/85; PULSE 97; RESP 16; TEMP 37.1; O2SAT 92
[2021-11-10] VITALS: BP 102/59; PULSE 93; RESP 16; TEMP 36.4; O2SAT 93
[2021-11-10 07:57] VITALS: BP 119/68; PULSE 86; RESP 16; TEMP 36.2; O2SAT 94
[2021-11-10] MEDS: Thiamine HCL 100 MG TABLET PO (09:19)
[2021-11-10] MEDS: Ferrous Sulfate 300 MG/5 ML LIQUID PO (09:19)
--- NOTE | 2021-11-10 11:06 | HO.PM.IMPN ---
Subjective Subjective Date of Service: 11/10/21 Interval History: Follow-up for placement no overnight events no specific complaints Review of Systems Review of Systems: Yes all other systems are reviewed and are negative Constitutional Constitutional: Denies chills and Denies fever(s) Cardiovascular Cardiovascular: Denies chest pain, Denies palpitations and Denies dyspnea Respiratory Respiratory: Denies cough and Denies dyspnea Gastrointestinal Gastrointestinal: Denies abdominal pain Endocrine Endocrine: Denies palpitations Physical Exam Vital Signs: Vital Signs: Last Vital Signs Temp 97.2 F 11/10/21 07:57 Pulse 86 11/10/21 07:57 Resp 16 11/10/21 07:57 BP 119/68 11/10/21 07:57 Pulse Ox 94 11/10/21 07:57 O2 Del Method 11/10/21 07:57 BMI result Body Mass Index 28.3 Appearing in no acute distress lung sounds are clear to auscultation heart regular rate rhythm, clear S1, S2 positive bowel sounds, abdomen is soft, nontender neuro patient is alert x3, no focal deficits Objective Data Active Medications Ferrous Sulfate (Ferrous Sulfate 300 Mg/5 Ml Liquid) 300 mg PO DAILY [facility] Last Admin: 11/10/21 09:19 Dose: 300 mg Documented By: GIGI Thiamine HCl (Thiamine Hcl 100 Mg Tablet) 100 mg PO DAILY [facility] Last Admin: 11/10/21 09:19 Dose: 100 mg Documented By: GIGI Labs CBC & Chem 7: 11/07/21 12:30 11/07/21 12:38 Assessment and Plan (1) Cognitive impairment: Status: Acute Plan 46-year-old female with of substance abuse presents to the hospital with confusion found to lack capacity to make medical decisions and awaiting placement no acute medical changes remains stable Cognitive impairment No change in mental status suspected secondary to history of polysubstance abuse urine toxicology positive for cocaine, fentanyl, and marijuana although the patient adamantly denies using any illicit substance, her parents confirmed that she was actively using substances Neurology input appreciated, brain changes on imaging consistent with cocaine abuse per speech therapy note on August 08 patient is doing well with her ability to respond to confrontational naming Pych reassessed on 08/12 and? report that she did not have capacity to make decisions, healthcare proxy is invoked case discussed with social service worker and occupational therapy E Coli UTI completed course of Abx DVT prophylaxis risk low risk - mechanical devices attending - dr. Chino need for inpatient due to cognitive linguistic impairment , waiting safe disposition given that she needs 24-hour observation. Family not able to care for her at home. Quality Stroke Does the patient have a stroke diagnosis?: No VTE Prior VTE?: No VTE Risk Level:: Medical - moderate - high VTE Device Contraindication: Treatment Not Indicated VTE Drug Contraindication: N/A - Med Ordered
[2021-11-10 16:00] VITALS: BP 114/67; PULSE 81; RESP 18; RESP 20; TEMP 36.9; O2SAT 96
[2021-11-10 23:21] VITALS: BP 112/59; PULSE 88; RESP 18; TEMP 36.9; O2SAT 96
[2021-11-11 07:41] VITALS: BP 120/64; PULSE 74; RESP 16; TEMP 36.4; O2SAT 95
[2021-11-11] MEDS: Ferrous Sulfate 300 MG/5 ML LIQUID PO (08:38)
[2021-11-11] MEDS: Thiamine HCL 100 MG TABLET PO (08:38)
--- NOTE | 2021-11-11 08:42 | HO.PM.IMPN ---
Subjective Subjective Date of Service: 11/11/21 Interval History: Follow-up for placement no overnight events no specific complaints Review of Systems Review of Systems: Yes all other systems are reviewed and are negative Constitutional Constitutional: Denies chills and Denies fever(s) Cardiovascular Cardiovascular: Denies chest pain, Denies palpitations and Denies dyspnea Respiratory Respiratory: Denies cough and Denies dyspnea Gastrointestinal Gastrointestinal: Denies abdominal pain Endocrine Endocrine: Denies palpitations Physical Exam Vital Signs: Vital Signs: Last Vital Signs Temp 97.6 F 11/11/21 07:41 Pulse 74 11/11/21 07:41 Resp 16 11/11/21 07:41 BP 120/64 11/11/21 07:41 Pulse Ox 95 11/11/21 07:41 O2 Del Method 11/11/21 07:41 BMI result Body Mass Index 28.3 Appearing in no acute distress lung sounds are clear to auscultation heart regular rate rhythm, clear S1, S2 positive bowel sounds, abdomen is soft, nontender neuro patient is alert x3 Objective Data Active Medications Ferrous Sulfate (Ferrous Sulfate 300 Mg/5 Ml Liquid) 300 mg PO DAILY [facility] Last Admin: 11/11/21 08:38 Dose: 300 mg Documented By: GIGI Thiamine HCl (Thiamine Hcl 100 Mg Tablet) 100 mg PO DAILY [facility] Last Admin: 11/11/21 08:38 Dose: 100 mg Documented By: GIGI Labs CBC & Chem 7: 11/07/21 12:30 11/07/21 12:38 Assessment and Plan (1) Cognitive impairment: Status: Acute Plan 46-year-old female with of substance abuse presents to the hospital with confusion found to lack capacity to make medical decisions and awaiting placement no acute medical changes remains stable Cognitive impairment No change in mental status suspected secondary to history of polysubstance abuse urine toxicology positive for cocaine, fentanyl, and marijuana although the patient adamantly denies using any illicit substance, her parents confirmed that she was actively using substances Neurology input appreciated, brain changes on imaging consistent with cocaine abuse per speech therapy note on August 08 patient is doing well with her ability to respond to confrontational naming Pych reassessed on 08/12 and? report that she did not have capacity to make decisions, healthcare proxy is invoked case discussed with social problems specialist and occupational therapy E Coli UTI completed course of Abx DVT prophylaxis risk low risk - mechanical devices attending - dr. Morales need for inpatient due to cognitive linguistic impairment , waiting safe disposition given that she needs 24-hour observation. Family not able to care for her at home. Quality Stroke Does the patient have a stroke diagnosis?: No VTE Prior VTE?: No VTE Risk Level:: Medical - moderate - high VTE Device Contraindication: Treatment Not Indicated VTE Drug Contraindication: N/A - Med Ordered
[2021-11-11 16:13] VITALS: BP 100/56; PULSE 76; RESP 15; TEMP 36.9; O2SAT 93
[2021-11-11 23:24] VITALS: BP 103/59; PULSE 86; RESP 16; TEMP 36.8; O2SAT 94
[2021-11-12 08:00] VITALS: BP 114/67; PULSE 76; RESP 18; TEMP 36.6; O2SAT 96
[2021-11-12] MEDS: Ferrous Sulfate 300 MG/5 ML LIQUID PO (08:41)
[2021-11-12] MEDS: Thiamine HCL 100 MG TABLET PO (08:41)
--- NOTE | 2021-11-12 12:50 | MHC.CM.PN ---
Addendum entered by Laura Frank RN 11/12/21 16:07: THIS CM SENT ANOTHER MESSAGE TO [facility] SORENSON PRIOR TO THIS ADDENDUM AND CM AWAITING RESPONSE. Original Note: EMR REVIEWED, PT REMAINS MEDICALLY CLEARED FOR D/C [facility] SOREN[facility] REPORTING THEY DID NOT SEE UPDATED CLINICALS, REFERRAL HAS BEEN UPDATED AND RESENT BLANKET REFERRAL, PER CM DIRECTOR THERE IS A POSSIBILITY THAT SOMEON FROM [facility] WILL BE IN TO SEE PT HOWEVER UNSURE IF THIS WILL HAPPEN THEY HAVE DECLINED PT MULTIPLE TIMES, CM WILL CONT TO FOLLOW REFERRALS AND D/C NEEDS.
--- NOTE | 2021-11-12 13:55 | P.PNIM_ITS ---
Subjective Subjective Date of Service: 11/12/21 Interval History: being followed for placement patient sitting comfortably in bed offers no acute complaints of chest pain, no palpitations, no shortness of breath, nausea no vomiting tolerating diet. No acute overnight events. Review of Systems Review of Systems: Yes all other systems are reviewed and are negative Physical Exam Vital Signs: Vital Signs: Last Vital Signs Temp 97.9 F 11/12/21 08:00 Pulse 76 11/12/21 08:00 Resp 18 11/12/21 08:00 BP 114/67 11/12/21 08:00 Pulse Ox 96 11/12/21 08:00 O2 Del Method 11/12/21 08:00 BMI result Body Mass Index 28.3 Const: Other: ?General sitting c omfortably, in no acute distress ne ck no JVD ?lung c lear to auscultati on ?heart regular rate rhythm, clear ? S1, S2 ?positive bowel sounds, abd omen is soft, nont suzie ?neuro patie nt is alert x3 ex tremities no edema Objective Data Active Medications Ferrous Sulfate (Ferrous Sulfate 300 Mg/5 Ml Liquid) 300 mg PO DAILY [facility] Last Admin: 11/12/21 08:41 Dose: 300 mg Documented By: LINDA Thiamine HCl (Thiamine Hcl 100 Mg Tablet) 100 mg PO DAILY [facility] Last Admin: 11/12/21 08:41 Dose: 100 mg Documented By: LINDA Labs CBC & Chem 7: 11/07/21 12:30 11/07/21 12:38 Assessment and Plan (1) Cognitive impairment: Status: Acute Plan 46-year-old female with of substance abuse presents to the hospital with confusion found to lack capacity to make medical decisions and awaiting placement no acute medical changes remains stable Cognitive impairment No change in mental status suspected secondary to history of polysubstance abuse urine toxicology positive for cocaine, fentanyl, and marijuana although the patient adamantly denies using any illicit substance, her parents confirmed that she was actively using substances Neurology input appreciated, brain changes on imaging consistent with cocaine abuse per speech therapy note on August 11 patient has moderate cognitive linguistic impairment. Pych reassessed on 09/01 and? psych felt patient has made slight improvement suggests knowing the month, but she is at [facility] but improvement is not significant enough that she would have capacity at this time healthcare proxy is invoked case discussed with geriatric social work professor and occupational therapy E Coli UTI completed course of Abx DVT prophylaxis risk low risk - mechanical devices need for inpatient due to cognitive linguistic impairment , waiting safe disposition given that she needs 24-hour observation. Family not able to care for her at home. Quality Stroke Does the patient have a stroke diagnosis?: No VTE Prior VTE?: No VTE Risk Level:: Medical - moderate - high VTE Device Contraindication: Treatment Not Indicated VTE Drug Contraindication: N/A - Med Ordered
[2021-11-12 16:00] VITALS: BP 120/67; PULSE 76; RESP 17; TEMP 36.4; O2SAT 95
[2021-11-13] VITALS: BP 92/51; PULSE 89; RESP 17; TEMP 36.5; O2SAT 94
[2021-11-13 07:45] VITALS: BP 117/74; PULSE 83; RESP 15; TEMP 36.6; O2SAT 93
[2021-11-13] MEDS: Thiamine HCL 100 MG TABLET PO (08:53)
[2021-11-13] MEDS: Ferrous Sulfate 300 MG/5 ML LIQUID PO (08:53)
--- NOTE | 2021-11-13 11:43 | P.PNIM_ITS ---
Subjective Subjective Date of Service: 11/13/21 Interval History: Being followed for placement, patient is sitting comfortably in bed offers no acute complaints, denies nausea vomiting, no shortness of breath, no chest pain, no acute overnight events. Review of Systems Review of Systems: Yes all other systems are reviewed and are negative Physical Exam Vital Signs: Vital Signs: Last Vital Signs Temp 97.8 F 11/13/21 07:45 Pulse 83 11/13/21 07:45 Resp 15 11/13/21 07:45 BP 117/74 11/13/21 07:45 Pulse Ox 93 11/13/21 07:45 O2 Del Method 11/13/21 07:45 BMI result Body Mass Index 28.3 Const: Other: ?General sitting comfortably, in no acute distress ?neck no JVD ?lung? clear to auscultation ?heart regular rate rhythm, ?abdomen is soft, nontender ?neuro patient is alert x3 ?extremities no edema Objective Data Active Medications Ferrous Sulfate (Ferrous Sulfate 300 Mg/5 Ml Liquid) 300 mg PO DAILY [facility] Last Admin: 11/13/21 08:53 Dose: 300 mg Documented By: ANANYA Thiamine HCl (Thiamine Hcl 100 Mg Tablet) 100 mg PO DAILY [facility] Last Admin: 11/13/21 08:53 Dose: 100 mg Documented By: ANANYA Labs CBC & Chem 7: 11/07/21 12:30 11/07/21 12:38 Assessment and Plan (1) Cognitive impairment: Status: Acute Plan 46-year-old female with of substance abuse presents to the hospital with confusion found to lack capacity to make medical decisions and awaiting placement no acute medical changes remains stable Cognitive impairment No change in clinical status, unchanged mental status suspected secondary to history of polysubstance abuse urine toxicology positive for cocaine, fentanyl, and marijuana although the patient adamantly denies using any illicit substance, her parents confirmed that she was actively using substances Neurology input appreciated, brain changes on imaging consistent with cocaine abuse per speech therapy note on August 11 patient has moderate cognitive linguistic impairment. Pych reassessed on 09/01 and? psych felt patient has made slight improvement suggests knowing the month,that she is at [facility] but improvement is not significant enough that she would have capacity at this time healthcare proxy is invoked case discussed with social media marketing analyst and occupational therapy E Coli UTI completed course of Abx DVT prophylaxis risk low risk - mechanical devices need for inpatient due to cognitive linguistic impairment , waiting safe disposition given that she needs 24-hour observation. Family not able to care for her at home. Quality Stroke Does the patient have a stroke diagnosis?: No VTE Prior VTE?: No VTE Risk Level:: Medical - moderate - high VTE Device Contraindication: Treatment Not Indicated VTE Drug Contraindication: N/A - Med Ordered
--- NOTE | 2021-11-13 14:17 | MHC.CM.PN ---
STEPHEN RECEIVED PHONE CALL FROM CHARLIE OF [employer] EXT [phone] REQUESTING UPDATE ON PATIENT. SHE WAS INFORMED STILL MEDICALLY CLEARED, NO BED OFFERS, SNF'S UPDATED EVERY OTHER DAY. 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 ONLY SEEKING UPDATE NOT ABLE TO ASSIST WITH FINDING PATIENT LOG TERM HOUSING. ASKED ABOUT GOING BACK HOME, STEPHEN INFORMED HER MOM NOT ABLE TO TAKE PATIENT AND SHE SHOULD CALL FAMILY DIRECTLY AND ASK.
[2021-11-13 15:49] VITALS: BP 115/65; PULSE 86; RESP 18; TEMP 36.2; O2SAT 93
[2021-11-14] VITALS: BP 109/58; PULSE 93; RESP 18; TEMP 36.8; O2SAT 93
[2021-11-14 07:21] VITALS: BP 120/63; PULSE 78; RESP 15; TEMP 36.6; O2SAT 95
[2021-11-14] MEDS: Ferrous Sulfate 300 MG/5 ML LIQUID PO (08:50)
[2021-11-14] MEDS: Thiamine HCL 100 MG TABLET PO (08:50)
[2021-11-14 16:00] VITALS: BP 118/65; PULSE 84; RESP 20; TEMP 37.7; O2SAT 95
--- NOTE | 2021-11-14 16:00 | P.PNIM_ITS ---
Subjective Subjective Date of Service: 11/14/21 Interval History: Seen and examined this morning Follow-up for placement No overnight events No specific complaints morning. Feeling well, tolerating diet. Voiding without difficulty Review of Systems Review of Systems: Yes all other systems are reviewed and are negative Constitutional Constitutional: Denies chills and Denies fever(s) ENT Ears, Nose, Mouth, and Throat: Denies dizziness Cardiovascular Cardiovascular: Denies chest pain Gastrointestinal Gastrointestinal: Denies abdominal pain Neurologic Neurologic: Denies dizziness Physical Exam Vital Signs: Vital Signs: Last Vital Signs Temp 97.9 F 11/14/21 07:21 Pulse 78 11/14/21 07:21 Resp 15 11/14/21 07:21 BP 120/63 11/14/21 07:21 Pulse Ox 95 11/14/21 07:21 O2 Del Method 11/14/21 07:21 BMI result Body Mass Index 28.3 Const: General: cooperative, comfortable, no acute distress, alert and awake Nutritional Appearance: average body habitus Eyes: Pupils: Equal, round and reactive pupils present EOM: EOMs intact bilaterally Resp: Effort & Inspection: normal respiratory effort and able to speak in complete sentences Auscultation: clear to auscultation bilaterally Cardio: Rate: regular rate Heart sounds: S1 normal heart sound present and S2 normal heart sound present GI: Inspection: No distended Palpation (GI): Soft to palpation and nontender Neuro: Cranial nerves: Yes Equal, round and reactive pupils present Extrem: Other: Able to move all 4 extremities spontaneously General: Yes no pedal edema Objective Data Active Medications Thiamine HCl (Thiamine Hcl 100 Mg Tablet) 100 mg PO DAILY [facility] Last Admin: 11/14/21 08:50 Dose: 100 mg Documented By: RIKI Labs CBC & Chem 7: 11/07/21 12:30 11/07/21 12:38 Assessment and Plan (1) Cognitive impairment: Status: Acute Plan 46-year-old female with of substance abuse presents to the hospital with confusion found to lack capacity to make medical decisions and awaiting place ment no acute medical changes remains stable Cognitive impairment No change in clinical status, unchanged mental status suspected secondary to history of polysubstance abuse urine toxicology positive for cocaine, fentanyl, and marijuana although the patient adamantly denies using any illicit substance, her parents confirmed that she was actively using substances Neurology input appreciated, brain changes on imaging consistent with cocaine abuse per speech therapy note on August 11 patient has moderate cognitive linguistic impairment. Pych reassessed on 09/01 and? psych felt patient has made slight improvement suggests knowing the month,that she is at [facility] but improvement is not significant enough that she would have capacity at this time healthcare proxy is invoked case discussed with social science research assistant and occupational therapy E Coli UTI completed course of Abx DVT prophylaxis risk low risk - mechanical devices attending - dr. angeles need for inpatient due to cognitive linguistic impairment , waiting safe disposition given that she needs 24-hour observation. Family not able to care for her at home. Quality Stroke Does the patient have a stroke diagnosis?: No VTE Prior VTE?: No VTE Risk Level:: Medical - moderate - high VTE Device Contraindication: Treatment Not Indicated VTE Drug Contraindication: N/A - Med Ordered
[2021-11-14 23:43] VITALS: BP 99/57; PULSE 89; RESP 17; TEMP 36.4; O2SAT 94
[2021-11-15 07:54] VITALS: BP 117/66; PULSE 71; RESP 17; TEMP 36.7; O2SAT 94
[2021-11-15] MEDS: Ferrous Sulfate 324 MG TABLET.DR 325 MG PO (08:26)
[2021-11-15] MEDS: Thiamine HCL 100 MG TABLET PO (08:28)
[2021-11-15 16:00] VITALS: BP 117/58; PULSE 86; RESP 15; TEMP 37.1; O2SAT 94
--- NOTE | 2021-11-15 16:05 | HO.PM.IMPN ---
Subjective Subjective Date of Service: 11/15/21 Interval History: Seen and examined this morning Follow-up for placement No overnight events No specific complaints this morning Review of Systems Review of Systems: Yes all other systems are reviewed and are negative Constitutional Constitutional: Denies chills and Denies fever(s) Cardiovascular Cardiovascular: Denies chest pain, Denies palpitations and Denies dyspnea Respiratory Respiratory: Denies cough and Denies dyspnea Gastrointestinal Gastrointestinal: Denies abdominal pain, Denies nausea and Denies vomiting Endocrine Endocrine: Denies palpitations Physical Exam Vital Signs: Vital Signs: Last Vital Signs Temp 98.1 F 11/15/21 07:54 Pulse 71 11/15/21 07:54 Resp 17 11/15/21 07:54 BP 117/66 11/15/21 07:54 Pulse Ox 94 11/15/21 07:54 O2 Del Method 11/15/21 07:54 BMI result Body Mass Index 28.3 Const: General: cooperative, comfortable, no acute distress, alert and awake Nutritional Appearance: average body habitus Eyes: Pupils: Equal, round and reactive pupils present EOM: EOMs intact bilaterally Resp: Effort & Inspection: normal respiratory effort and able to speak in complete sentences Auscultation: clear to auscultation bilaterally Cardio: Rate: regular rate Heart sounds: S1 normal heart sound present and S2 normal heart sound present GI: Inspection: No distended Palpation (GI): Soft to palpation and nontender Neuro: Cranial nerves: Yes Equal, round and reactive pupils present Extrem: Other: Able to move all 4 extremities spontaneously General: Yes no pedal edema Objective Data Active Medications Ferrous Sulfate (Ferrous Sulfate 324 Mg Tablet.) 325 mg PO DAILY [facility] Last Admin: 11/15/21 08:26 Dose: 324 mg Documented By: ANANYA Thiamine HCl (Thiamine Hcl 100 Mg Tablet) 100 mg PO DAILY [facility] Last Admin: 11/15/21 08:28 Dose: 100 mg Documented By: ANANYA Labs CBC & Chem 7: 11/07/21 12:30 11/07/21 12:38 Assessment and Plan (1) Cognitive impairment: Status: Acute Plan 46-year-old female with of substance abuse presents to the hospital with confusion found to lack capacity to make medical decisions and awaiting placement no acute medical changes remains stable Cognitive impairment No change in clinical status, unchanged mental status suspected secondary to history of polysubstance abuse urine toxicology positive for cocaine, fentanyl, and marijuana although the patient adamantly denies using any illicit substance, her parents confirmed that she was actively using substances Neurology input appreciated, brain changes on imaging consistent with cocaine abuse per speech therapy note on August 11 patient has moderate cognitive linguistic impairment. Pych reassessed on 09/01 and? psych felt patient has made slight improvement suggests knowing the month,that she is at [facility] but improvement is not significant enough that she would have capacity at this time healthcare proxy is invoked case discussed with social work associate and occupational therapy E Coli UTI completed course of Abx DVT prophylaxis risk low risk - mechanical devices attending - dr. alicea need for inpatient due to cognitive linguistic impairment , waiting safe disposition given that she needs 24-hour observation. Family not able to care for her at home. Quality Stroke Does the patient have a stroke diagnosis?: No VTE Prior VTE?: No VTE Risk Level:: Medical - moderate - high VTE Device Contraindication: Treatment Not Indicated VTE Drug Contraindication: N/A - Med Ordered
[2021-11-15 23:35] VITALS: BP 104/53; PULSE 79; RESP 16; TEMP 36.3; O2SAT 96
[2021-11-16 07:41] VITALS: BP 123/62; PULSE 80; RESP 18; TEMP 36.4; O2SAT 98
[2021-11-16] MEDS: Thiamine HCL 100 MG TABLET PO (08:04)
[2021-11-16] MEDS: Ferrous Sulfate 324 MG TABLET.DR 325 MG PO (08:04)
--- NOTE | 2021-11-16 15:20 | P.PNIM_ITS ---
Subjective Subjective Date of Service: 11/16/21 Interval History: Seen and examined this morning Follow-up for placement No overnight events Reporting some rhinorrhea, no cough, no shortness of breath, no fever, chills Constitutional Constitutional: Denies chills and Denies fever(s) ENT Ears, Nose, Mouth, and Throat: Denies dizziness Cardiovascular Cardiovascular: Denies chest pain and Denies dyspnea Respiratory Respiratory: Denies cough and Denies dyspnea Gastrointestinal Gastrointestinal: Denies abdominal pain, Denies nausea and Denies vomiting Neurologic Neurologic: Denies dizziness Physical Exam Vital Signs: Vital Signs: Last Vital Signs Temp 97.6 F 11/16/21 07:41 Pulse 80 11/16/21 07:41 Resp 18 11/16/21 07:41 BP 123/62 11/16/21 07:41 Pulse Ox 98 11/16/21 07:41 O2 Del Method 11/16/21 07:41 BMI result Body Mass Index 28.3 Const: General: cooperative, comfortable, no acute distress, alert and awake Nutritional Appearance: average body habitus Eyes: Pupils: Equal, round and reactive pupils present EOM: EOMs intact bilaterally Resp: Effort & Inspection: normal respiratory effort and able to speak in complete sentences Auscultation: clear to auscultation bilaterally Cardio: Rate: regular rate Heart sounds: S1 normal heart sound present and S2 normal heart sound present GI: Inspection: No distended Palpation (GI): Soft to palpation and nontender Neuro: Cranial nerves: Yes Equal, round and reactive pupils present Extrem: Other: Able to move all 4 extremities spontaneously General: Yes no pedal edema Objective Data Active Medications Ferrous Sulfate (Ferrous Sulfate 324 Mg Tablet.) 324 mg PO [facility] Thiamine HCl (Thiamine Hcl 100 Mg Tablet) 100 mg PO DAILY [facility] Last Admin: 11/16/21 08:04 Dose: 100 mg Documented By: RIKI Labs CBC & Chem 7: 11/07/21 12:30 11/07/21 12:38 Assessment and Plan (1) Cognitive impairment: Status: Acute Plan 46-year-old female with of substance abuse presents to the hospital with confusion found to lack capacity to make medical decisions and awaiting placement no acute medical changes remains stable Cognitive impairment No change in clinical status, unchanged mental status suspected secondary to history of polysubstance abuse urine toxicology positive for cocaine, fentanyl, and marijuana although the patient adamantly denies using any illicit substance, her parents confirmed that she was actively using substances Neurology input appreciated, brain changes on imaging consistent with cocaine abuse per speech therapy note on August 11 patient has moderate cognitive linguistic impairment. Pych reassessed on 09/01 and? psych felt patient has made slight improvement suggests knowing the month,that she is at [facility] but improvement is not significant enough that she would have capacity at this time healthcare proxy is invoked case discussed with social sciences department chair and occupational therapy E Coli UTI completed course of Abx DVT prophylaxis risk low risk - mechanical devices need for inpatient due to cognitive linguistic impairment , waiting safe disposition given that she needs 24-hour observation. Family not able to care for her at home. Quality Stroke Does the patient have a stroke diagnosis?: No VTE Prior VTE?: No VTE Risk Level:: Medical - moderate - high VTE Device Contraindication: Treatment Not Indicated VTE Drug Contraindication: N/A - Med Ordered
[2021-11-16 16:00] VITALS: BP 112/69; PULSE 86; RESP 18; TEMP 36.8
[2021-11-17] VITALS: BP 105/60; PULSE 80; RESP 18; TEMP 37; O2SAT 94
[2021-11-17 07:51] VITALS: BP 114/67; PULSE 90; RESP 15; TEMP 36.8; O2SAT 93
[2021-11-17] MEDS: Ferrous Sulfate 324 MG TABLET.DR PO (09:35)
[2021-11-17] MEDS: Thiamine HCL 100 MG TABLET PO (09:35)
--- NOTE | 2021-11-17 10:04 | HO.PM.IMPN ---
Subjective Subjective Date of Service: 11/17/21 Interval History: Seen and examined this morning Follow-up for placement No overnight events Reporting some rhinorrhea, no cough, no shortness of breath, no fever, chills Constitutional Constitutional: Denies chills and Denies fever(s) ENT Ears, Nose, Mouth, and Throat: Denies dizziness Cardiovascular Cardiovascular: Denies chest pain and Denies dyspnea Respiratory Respiratory: Denies cough and Denies dyspnea Gastrointestinal Gastrointestinal: Denies abdominal pain, Denies nausea and Denies vomiting Neurologic Neurologic: Denies dizziness Physical Exam Vital Signs: Vital Signs: Last Vital Signs Temp 98.3 F 11/17/21 07:51 Pulse 90 11/17/21 07:51 Resp 15 11/17/21 07:51 BP 114/67 11/17/21 07:51 Pulse Ox 93 11/17/21 07:51 O2 Del Method 11/17/21 07:51 BMI result Body Mass Index 28.3 Appearing in no acute distress lung sounds are clear to auscultation heart regular rate rhythm positive bowel sounds neuro patient is alert Objective Data Active Medications Ferrous Sulfate (Ferrous Sulfate 324 Mg Tablet.) 324 mg PO DAILY [facility] Last Admin: 11/17/21 09:35 Dose: 324 mg Documented By: PABLO Thiamine HCl (Thiamine Hcl 100 Mg Tablet) 100 mg PO DAILY [facility] Last Admin: 11/17/21 09:35 Dose: 100 mg Documented By: PABLO Labs CBC & Chem 7: 11/07/21 12:30 11/07/21 12:38 Assessment and Plan (1) Cognitive impairment: Status: Acute Plan 46-year-old female with of substance abuse presents to the hospital with confusion found to lack capacity to make medical decisions and awaiting placement no acute medical changes remains stable Cognitive impairment No change in clinical status, unchanged mental status suspected secondary to history of polysubstance abuse urine toxicology positive for cocaine, fentanyl, and marijuana although the patient adamantly denies using any illicit substance, her parents confirmed that she was actively using substances Neurology input appreciated, brain changes on imaging consistent with cocaine abuse per speech therapy note on August 11 patient has moderate cognitive linguistic impairment. Pych reassessed on 09/01 and? psych felt patient has made slight improvement suggests knowing the month,that she is at [facility] but improvement is not significant enough that she would have capacity at this time healthcare proxy is invoked case discussed with high school social studies teacher and occupational therapy E Coli UTI completed course of Abx DVT prophylaxis risk low risk - mechanical devices need for inpatient due to cognitive linguistic impairment , waiting safe disposition given that she needs 24-hour observation. Family not able to care for her at home. Quality Stroke Does the patient have a stroke diagnosis?: No VTE Prior VTE?: No VTE Risk Level:: Medical - moderate - high VTE Device Contraindication: Treatment Not Indicated VTE Drug Contraindication: N/A - Med Ordered
[2021-11-17 15:49] VITALS: BP 102/74; PULSE 81; RESP 20; TEMP 36.6; O2SAT 93
[2021-11-17 19:59] VITALS: BP 116/69; PULSE 90; RESP 18; TEMP 36.5; O2SAT 98
[2021-11-17 23:54] VITALS: BP 126/65; PULSE 74; RESP 17; TEMP 36.4; O2SAT 97
[2021-11-18 07:24] VITALS: BP 120/67; PULSE 83; RESP 14; TEMP 36.1; O2SAT 94
--- NOTE | 2021-11-18 08:44 | P.PNIM_ITS ---
Subjective Subjective Date of Service: 11/18/21 Interval History: Seen and examined this morning Follow-up for placement No overnight events Constitutional Constitutional: Denies chills and Denies fever(s) ENT Ears, Nose, Mouth, and Throat: Denies dizziness Cardiovascular Cardiovascular: Denies chest pain and Denies dyspnea Respiratory Respiratory: Denies cough and Denies dyspnea Gastrointestinal Gastrointestinal: Denies abdominal pain, Denies nausea and Denies vomiting Neurologic Neurologic: Denies dizziness Physical Exam Vital Signs: Vital Signs: Last Vital Signs Temp 97.0 F 11/18/21 07:24 Pulse 83 11/18/21 07:24 Resp 14 11/18/21 07:24 BP 120/67 11/18/21 07:24 Pulse Ox 94 11/18/21 07:24 O2 Del Method 11/18/21 07:24 BMI result Body Mass Index 28.3 Appearing in no acute distress lung sounds are clear to auscultation heart regular rate rhythm positive bowel sounds neuro patient is alert Objective Data Active Medications Ferrous Sulfate (Ferrous Sulfate 324 Mg Tablet.) 324 mg PO DAILY [facility] Last Admin: 11/17/21 09:35 Dose: 324 mg Documented By: PABLO Thiamine HCl (Thiamine Hcl 100 Mg Tablet) 100 mg PO DAILY [facility] Last Admin: 11/17/21 09:35 Dose: 100 mg Documented By: PABLO Labs CBC & Chem 7: 11/07/21 12:30 11/07/21 12:38 Assessment and Plan (1) Cognitive impairment: Status: Acute Plan 46-year-old female with of substance abuse presents to the hospital with confusion found to lack capacity to make medical decisions and awaiting placement no acute medical changes remains stable Cognitive impairment No change in clinical status, unchanged mental status suspected secondary to history of polysubstance abuse urine toxicology positive for cocaine, fentanyl, and marijuana although the patient adamantly denies using any illicit substance, her parents confirmed that she was actively using substances Neurology input appreciated, brain changes on imaging consistent with cocaine abuse per speech therapy note on August 11 patient has moderate cognitive linguistic impairment. Pych reassessed on 09/01 and? psych felt patient has made slight improvement suggests knowing the month,that she is at [facility] but improvement is not significant enough that she would have capacity at this time healthcare proxy is invoked case discussed with addiction social worker and occupational therapy E Coli UTI completed course of Abx DVT prophylaxis risk low risk - mechanical devices need for inpatient due to cognitive linguistic impairment , waiting safe disposition given that she needs 24-hour observation. Family not able to care for her at home. Quality Stroke Does the patient have a stroke diagnosis?: No VTE Prior VTE?: No VTE Risk Level:: Medical - moderate - high VTE Device Contraindication: Treatment Not Indicated VTE Drug Contraindication: N/A - Med Ordered
[2021-11-18] MEDS: Ferrous Sulfate 324 MG TABLET.DR PO (10:16)
[2021-11-18] MEDS: Thiamine HCL 100 MG TABLET PO (10:16)
[2021-11-18 16:27] VITALS: BP 112/63; PULSE 82; RESP 18; TEMP 37.1; O2SAT 96
[2021-11-19] VITALS: BP 128/69; PULSE 77; RESP 17; TEMP 36.4; O2SAT 97
[2021-11-19 08:00] VITALS: BP 120/68; PULSE 106; RESP 18; TEMP 36.1; O2SAT 94
--- NOTE | 2021-11-19 09:27 | P.PNIM_ITS ---
Subjective Subjective Date of Service: 11/19/21 Interval History: Seen and examined this morning Follow-up for placement No overnight events Constitutional Constitutional: Denies chills and Denies fever(s) ENT Ears, Nose, Mouth, and Throat: Denies dizziness Cardiovascular Cardiovascular: Denies chest pain and Denies dyspnea Respiratory Respiratory: Denies cough and Denies dyspnea Gastrointestinal Gastrointestinal: Denies abdominal pain, Denies nausea and Denies vomiting Neurologic Neurologic: Denies dizziness Physical Exam Vital Signs: Vital Signs: Last Vital Signs Temp 97 F 11/19/21 08:00 Pulse 106 H 11/19/21 08:00 Resp 18 11/19/21 08:00 BP 120/68 11/19/21 08:00 Pulse Ox 94 11/19/21 08:00 O2 Del Method 11/19/21 08:00 BMI result Body Mass Index 28.3 Appearing in no acute distress neuro patient is alert Objective Data Active Medications Ferrous Sulfate (Ferrous Sulfate 324 Mg Tablet.) 324 mg PO DAILY [facility] Last Admin: 11/18/21 10:16 Dose: 324 mg Documented By: PABLO Thiamine HCl (Thiamine Hcl 100 Mg Tablet) 100 mg PO DAILY [facility] Last Admin: 11/18/21 10:16 Dose: 100 mg Documented By: PABLO Labs CBC & Chem 7: 11/07/21 12:30 11/07/21 12:38 Assessment and Plan (1) Cognitive impairment: Status: Acute Plan 46-year-old female with of substance abuse presents to the hospital with confusion found to lack capacity to make medical decisions and awaiting placement no acute medical changes remains stable Cognitive impairment No change in clinical or mental status suspected secondary to history of polysubstance abuse urine toxicology positive for cocaine, fentanyl, and marijuana although the patient adamantly denies using any illicit substance, her parents confirmed that she was actively using substances Neurology input appreciated, brain changes on imaging consistent with cocaine abuse per speech therapy note on August 11 patient has moderate cognitive linguistic impairment. Pych reassessed on 09/01 and? psych felt patient has made slight improvement suggests knowing the month,that she is at [facility] but improvement is not significant enough that she would have capacity at this time healthcare proxy is invoked case discussed with social problems specialist and occupational therapy E Coli UTI completed course of Abx DVT prophylaxis risk low risk - mechanical devices and ambulation need for inpatient due to cognitive linguistic impairment , waiting safe disposition given that she needs 24-hour observation. Family not able to care for her at home. Quality Stroke Does the patient have a stroke diagnosis?: No VTE Prior VTE?: No VTE Risk Level:: Medical - moderate - high VTE Device Contraindication: Treatment Not Indicated VTE Drug Contraindication: N/A - Med Ordered
[2021-11-19] MEDS: Ferrous Sulfate 324 MG TABLET.DR PO (10:11)
[2021-11-19] MEDS: Thiamine HCL 100 MG TABLET PO (10:11)
[2021-11-19 16:00] VITALS: BP 116/68; PULSE 86; RESP 14; TEMP 37.1; O2SAT 94
[2021-11-20] VITALS: BP 100/54; PULSE 82; RESP 16; TEMP 36.5; O2SAT 94
[2021-11-20] MEDS: Thiamine HCL 100 MG TABLET PO (07:22)
[2021-11-20] MEDS: Ferrous Sulfate 324 MG TABLET.DR PO (07:22)
[2021-11-20 07:32] VITALS: BP 105/57; PULSE 83; RESP 20; TEMP 36.7; O2SAT 97
--- NOTE | 2021-11-20 14:52 | P.PNIM_ITS ---
Subjective Subjective Date of Service: 11/20/21 Interval History: Seen and examined this morning Follow-up for placement No overnight events No specific complaints this morning Tolerating diet, voiding without difficulty Review of Systems Review of Systems: Yes all other systems are reviewed and are negative Constitutional Constitutional: Denies chills and Denies fever(s) Cardiovascular Cardiovascular: Denies chest pain, Denies palpitations and Denies dyspnea Respiratory Respiratory: Denies cough and Denies dyspnea Gastrointestinal Gastrointestinal: Denies abdominal pain, Denies nausea and Denies vomiting Endocrine Endocrine: Denies palpitations Physical Exam Vital Signs: Vital Signs: Last Vital Signs Temp 98.1 F 11/20/21 07:32 Pulse 83 11/20/21 07:32 Resp 20 11/20/21 07:32 BP 105/57 L 11/20/21 07:32 Pulse Ox 97 11/20/21 07:32 O2 Del Method 11/20/21 07:32 BMI result Body Mass Index 28.3 Objective Data Active Medications Ferrous Sulfate (Ferrous Sulfate 324 Mg Tablet.) 324 mg PO DAILY [facility] Last Admin: 11/20/21 07:22 Dose: 324 mg Documented By: SAADIA Thiamine HCl (Thiamine Hcl 100 Mg Tablet) 100 mg PO DAILY [facility] Last Admin: 11/20/21 07:22 Dose: 100 mg Documented By: SAADIA Labs CBC & Chem 7: 11/07/21 12:30 11/07/21 12:38 Assessment and Plan (1) Cognitive impairment: Status: Acute Plan 46-year-old female with of substance abuse presents to the hospital with confusion found to lack capacity to make medical decisions and awaiting placement no acute medical changes remains stable Cognitive impairment No change in clinical or mental status suspected secondary to history of polysubstance abuse urine toxicology positive for cocaine, fentanyl, and marijuana although the patient adamantly denies using any illicit substance, her parents confirmed that she was actively using substances Neurology input appreciated, brain changes on imaging consistent with cocaine abuse per speech therapy note on August 11 patient has moderate cognitive linguistic impairment. Pych reassessed on 09/01 and? psych felt patient has made slight improvement suggests knowing the month,that she is at [facility] but improvement is not significant enough that she would have capacity at this time healthcare proxy is invoked case discussed with psych social worker and occupational therapy -plan for repeat capacity evaluation E Coli UTI completed course of Abx DVT prophylaxis risk low risk - mechanical devices and ambulation need for inpatient due to cognitive linguistic impairment , waiting safe disposition given that she needs 24-hour observation. Family not able to care for her at home. Quality Stroke Does the patient have a stroke diagnosis?: No VTE Prior VTE?: No VTE Risk Level:: Medical - moderate - high VTE Device Contraindication: Treatment Not Indicated VTE Drug Contraindication: N/A - Med Ordered
[2021-11-20 16:10] VITALS: BP 117/77; PULSE 85; RESP 18; TEMP 36.7; O2SAT 95
--- NOTE | 2021-11-20 17:22 | P.CNPS_ITS ---
History of Present Illness Date of Service: 11/20/2021 Chief Complaint: UTI, encephalopathy HPI Narrative: Vannessa is a 46 y.o. female with PMH of polysubstance use, presented to hospital 132 days ago due to increased confusion, encephalopathy in the context of polysubstance abuse, found to have a UTI (resolved). Utox was positive for opiates, fentanyl, cocaine, and cannabis. She was admitted for further care and treatment. Pt seen by neurologist during course of hospitalization and found to have hypo attenuation in globus pallidus on MRI which was attributed to heavy cocaine use. Pt has met with psychiatry a number of times, last in 09/01/21 and it was determined that she lacked capacity each time.?Her healthcare proxy has been invoked, who is her father.? Psych consult placed to re-assess capacity as pt has been progessively improving. I spoke with pt?s RN, she went outside today and has been independent in ADLs. Pt does require prompting from RN to do basic things like showering and leaving her room for walks/ fresh air breaks, however she is cooperative and very direct able. I spoke with pt this evening and she is able to tell me the circumstances of her hospitalization, i.e. knows she over dosed, still doesnt know what she took but will likely never recall this. Pt is oriented to the month, day, year, season, however does not know the date (says it is the 29 of november). She knows her location. Knows who the president is. 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 Pt says she wants to discharge home to family care, as she was living alone in an apartment, but has now lost that apartment. Per report, pt has burned bridges but she identifies her supports as her bio parents. When asked about her kids, pt says she has 3 sons and 2 daughters and the oldest is age 24/ 25, youngest is age 7 who is cur rently in care of her mom (I corrected pt that she has 4 sons and she agrees this is accurate). I performed some parts of the folstein mini mental status exam. Pt is unable to perform the serial 7s but is able to spell WORLD backwards. She is able to repeat three words but cannot recall them when asked later. Says her sleep is good, ?surprisingly I do sleep good,? energy is okay. Denies psychiatric sx. Pt is accepting of treatment interventions and is currently medically cleared, awaiting placement. When asked if she was granted capacity, would she leave AMA without safe housing secured and she says no, she would wait, which shows good judgment. Past Psychiatric History: History of depression in the past, reports seeing a provider, does not remember if prescribed meds, or therapy. Father later reported several residential substance use programs. Medical Evaluation Reviewed: Yes [facility] Medical History Polysubstance abuse Surgical History No pertinent past surgical history Social History: Parents . Father is healthcare proxy. She has 6 children. Currently unemployed. Trauma History: Unknown Diagnostics Vital Signs (24Hr): Vital Signs - 24 hr 11/20/21 00:00 11/20/21 07:32 11/20/21 16:10 Temperature 97.7 F 98.1 F 98.1 F Pulse Rate 82 83 85 Respiratory Rate 16 20 18 Blood Pressure 100/54 L 105/57 L 117/77 Pulse Oximetry 94 97 95 Oxygen Delivery Method Room Air Room Air Room Air BMI result Body Mass Index 28.3 Labs Results: 11/07/21 12:30 11/07/21 12:38 Imaging Radiology Impressions: ITS Impressions Head CT 07/11/21 02:42 IMPRESSION: Symmetric regions of of hypoattenuation in the globus pallidus, which appears slightly more prominent than on 07/06/2021. This appearance can be seen with carbon monoxide poisoning and may be further evaluated with MRI. This was discussed with Dr. Jaeger on 07/11/2021 3:22 AM. Chest X-Ray 07/11/21 02:45 IMPRESSION: No acute cardiopulmonary findings. Abdomen X-Ray 07/11/21 20:25 IMPRESSION: 1. No radiopaque foreign body. The patient is cleared for MRI. 2. Left renal upper pole 19 mm calculus, as on CT of 03/26/2017. Brain MRI 07/11/21 21:35 IMPRESSION: Expansile T2 signal changes involving the globus pallidus bilaterally associated with intermediate reduced diffusivity. There is also restricted diffusion within the hippocampi bilaterally and involving portions of the right and left caudate nucleus as well as bandlike T2 signal changes involving the cerebellar white matter bilaterally. Findings could be toxic/metabolic in etiology and should be correlated for any recent drug exposures, particularly fentanyl/opioid exposure given bilateral hippocampal involvement. Carbon monoxide toxicity can present with a subset of these findings. Infectious etiologies should be considered in the appropriate clinical context. Short-term follow-up inclusive of post contrast imaging would be helpful in further assessment. Mental Status Exam Mental Status Exam Narrative: A&O. Well groomed, in hospital attire, overweight. Good eye contact, attentive. No Tics or Tremors. No abnormal involuntary movements. Calm, cooperative, engaged. Non-pressured speech, spontaneous with regular rate and rhythm, normal volume and prosody. No prolonged speech latency or dysarthria. Mood is ?good,? affect is euthymic. Denies SI/SIB/HI upon inquiry. Denies A/VH or delusional thought content. Thoughts are coherent, organized. Appears to have some form of cognitive or memory impairment s/p brain damage from substance abuse. Insight/ Judgment fair and adequate. Medications Medications Current Medications Ferrous Sulfate (Ferrous Sulfate 324 Mg Tablet.) 324 mg PO DAILY [facility] Last Admin: 11/20/21 07:22 Dose: 324 mg Thiamine HCl (Thiamine Hcl 100 Mg Tablet) 100 mg PO DAILY [facility] Last Admin: 11/20/21 07:22 Dose: 100 mg Allergies Allergies Allergy/AdvReac Type Severity Reaction Status Date / Time codeine [CODEINE] Allergy Severe ANAPHLAXIS Verified 01/27/21 10:00 Penicillins Allergy Severe HIVES Verified 01/27/21 10:00 Assessment & Plan Assessment & Plan (1) Altered mental status: Qualifiers: Altered mental status type: unspecified Qualified Code(s): R41.82 - Altered mental status, unspecified Status: Acute Code(s): R41.82 - Altered mental status, unspecified (2) Abnormal head CT: Status: Acute Code(s): R93.0 - Abnormal findings on diagnostic imaging of skull and head, not elsewhere classified (3) Encounter for assessment of healthcare decision-making capacity: Status: Acute Code(s): Z02.79 - Encounter for issue of other medical certificate Plan Impressions: Pt?s overall cognition i.e. orientation, understanding of her health condition, attention, and remote memory appear to be improving. She continues to struggle with recall and recent memory, which is expected with her brain injury and she may continue to improve over time. At this time, it seems appropriate to restore capacity, as she is showing good judgment around her treatment decision of waiting for a safe discharge and for secured housing. She is independent in ADLs. She is not psychotic, demented, or delirious and is accepting of treatment.? Plan: I recommend to restore pt?s capacity and revoke HCP.?This is a fluid decision and if pt refuses treatment interventions and shows poor judgment, may need to re-consult psychiatry. I have shared this with Dr. Chino Thank you for this consultation. If you have any questions or concerns, please do not hesitate to contact psychiatry service. I spent minutes with the patient and/or on the patient floor today, greater than?50% of which was spent counseling/coordinating care. Patient educated on: other
[2021-11-20 23:32] VITALS: BP 96/51; PULSE 92; RESP 16; TEMP 36.6; O2SAT 95
[2021-11-21 08:00] VITALS: BP 122/70; PULSE 78; RESP 18; TEMP 36.7; O2SAT 97
[2021-11-21] MEDS: Ferrous Sulfate 324 MG TABLET.DR PO (08:30)
[2021-11-21] MEDS: Thiamine HCL 100 MG TABLET PO (08:30)
--- NOTE | 2021-11-21 13:26 | MHC.CM.PN ---
This writer editor had conversation with patient about discharge planning. She voiced she does not want to go to a snf. She expressed that she could possibly stay with Mother, Aunt or Father. Over this weekend patient is supposed to contact family and formulate a plan.
[2021-11-21 15:13] VITALS: BP 115/69; PULSE 76; RESP 17; TEMP 36.3; O2SAT 95
--- NOTE | 2021-11-21 16:12 | P.PNIM_ITS ---
Subjective Subjective Date of Service: 11/21/21 Interval History: Seen and examined this morning Follow-up for placement Re-evaluated by psych yesterday and deemed to be competent No overnight events No specific complaints Review of Systems Review of Systems: Yes all other systems are reviewed and are negative Constitutional Constitutional: Denies chills and Denies fever(s) Cardiovascular Cardiovascular: Denies chest pain, Denies palpitations and Denies dyspnea Respiratory Respiratory: Denies cough and Denies dyspnea Gastrointestinal Gastrointestinal: Denies abdominal pain, Denies nausea and Denies vomiting Endocrine Endocrine: Denies palpitations Physical Exam Vital Signs: Vital Signs: Last Vital Signs Temp 97.3 F 11/21/21 15:13 Pulse 76 11/21/21 15:13 Resp 17 11/21/21 15:13 BP 115/69 11/21/21 15:13 Pulse Ox 95 11/21/21 15:13 O2 Del Method 11/21/21 15:13 BMI result Body Mass Index 28.3 Const: General: cooperative, comfortable, no acute distress, alert and awake Nutritional Appearance: average body habitus Resp: Effort & Inspection: normal respiratory effort and able to speak in complete sentences Auscultation: clear to auscultation bilaterally Cardio: Rate: regular rate Heart sounds: S1 normal heart sound present and S2 normal heart sound present GI: Inspection: No distended Palpation (GI): Soft to palpation and nontender Extrem: Other: Able to move all 4 extremities spontaneously General: Yes no pedal edema Objective Data Active Medications Ferrous Sulfate (Ferrous Sulfate 324 Mg Tablet.) 324 mg PO DAILY [facility] Last Admin: 11/21/21 08:30 Dose: 324 mg Documented By: RIKI Thiamine HCl (Thiamine Hcl 100 Mg Tablet) 100 mg PO DAILY [facility] Last Admin: 11/21/21 08:30 Dose: 100 mg Documented By: RIKI Labs CBC & Chem 7: 11/07/21 12:30 11/07/21 12:38 Assessment and Plan (1) Cognitive impairment: Status: Acute Plan 46-year-old female with of substance abuse presents to the hospital with confusion found to lack capacity to make medical decisions and awaiting placement no acute medical changes remains stable Cognitive impairment suspected secondary to history of polysubstance abuse urine toxicology positive for cocaine, fentanyl, and marijuana although the patient adamantly denies using any illicit substance, her parents confirmed that she was actively using substances Neurology input appreciated, brain changes on imaging consistent with cocaine abuse per speech therapy note on August 11 patient has moderate cognitive linguistic impairment. psych re-eval 11/20 - reported improvement, now has capacity to make medical decisions E Coli UTI completed course of Abx DVT prophylaxis risk low risk - mechanical devices and ambulation Dispo-over the weekend case management and patient plan to reach out to family to formulate a plan for discharge Quality Stroke Does the patient have a stroke diagnosis?: No VTE Prior VTE?: No VTE Risk Level:: Medical - moderate - high VTE Device Contraindication: Treatment Not Indicated VTE Drug Contraindication: N/A - Med Ordered
[2021-11-21 23:45] VITALS: BP 113/63; PULSE 90; RESP 16; TEMP 36.3; O2SAT 96
[2021-11-22 07:54] VITALS: BP 118/76; PULSE 20; RESP 20; TEMP 36.6
[2021-11-22] MEDS: Ferrous Sulfate 324 MG TABLET.DR PO (09:55)
[2021-11-22] MEDS: Thiamine HCL 100 MG TABLET PO (09:55)
--- NOTE | 2021-11-22 10:53 | HO.PM.IMPN ---
Subjective Subjective Date of Service: 11/22/21 Interval History: Follow-up for placement Re-evaluated by psych and deemed to be competent No overnight events No specific complaints Review of Systems Review of Systems: Yes all other systems are reviewed and are negative Constitutional Constitutional: Denies chills and Denies fever(s) Cardiovascular Cardiovascular: Denies chest pain, Denies palpitations and Denies dyspnea Respiratory Respiratory: Denies cough and Denies dyspnea Gastrointestinal Gastrointestinal: Denies abdominal pain, Denies nausea and Denies vomiting Endocrine Endocrine: Denies palpitations Physical Exam Vital Signs: Vital Signs: Last Vital Signs Temp 97.8 F 11/22/21 07:54 Pulse 20 L 11/22/21 07:54 Resp 20 11/22/21 07:54 BP 118/76 11/22/21 07:54 Pulse Ox 96 11/21/21 23:45 O2 Del Method 11/22/21 07:54 BMI result Body Mass Index 28.3 Appearing in no acute distress lung sounds are clear to auscultation heart regular rate rhythm, clear S1, S2 positive bowel sounds, abdomen is soft, nontender neuro patient is alert x3, no focal deficits Objective Data Active Medications Ferrous Sulfate (Ferrous Sulfate 324 Mg Tablet.) 324 mg PO DAILY [facility] Last Admin: 11/22/21 09:55 Dose: 324 mg Documented By: PABLO Thiamine HCl (Thiamine Hcl 100 Mg Tablet) 100 mg PO DAILY [facility] Last Admin: 11/22/21 09:55 Dose: 100 mg Documented By: PABLO Labs CBC & Chem 7: 11/07/21 12:30 11/07/21 12:38 Assessment and Plan (1) Cognitive impairment: Status: Acute Plan 46-year-old female with of substance abuse presents to the hospital with confusion found to lack capacity to make medical decisions and awaiting placement no acute medical changes remains stable Cognitive impairment suspected secondary to history of polysubstance abuse urine toxicology positive for cocaine, fentanyl, and marijuana although the patient adamantly denies using any illicit substance, her parents confirmed that she was actively using substances Neurology input appreciated, brain changes on imaging consistent with cocaine abuse per speech therapy note on August 11 patient has moderate cognitive linguistic impairment. psych re-eval 11/20 - reported improvement, now has capacity to make medical decisions E Coli UTI completed course of Abx DVT prophylaxis risk low risk - mechanical devices and ambulation Dispo-over the weekend case management and patient plan to reach out to family to formulate a plan for discharge Quality Stroke Does the patient have a stroke diagnosis?: No VTE Prior VTE?: No VTE Risk Level:: Medical - moderate - high VTE Device Contraindication: Treatment Not Indicated VTE Drug Contraindication: N/A - Med Ordered
[2021-11-22 15:06] VITALS: BP 109/59; PULSE 89; RESP 18; TEMP 36.2; O2SAT 96
[2021-11-23] VITALS: BP 95/80; PULSE 88; RESP 20; TEMP 37.1; O2SAT 94
[2021-11-23 07:42] VITALS: BP 122/68; PULSE 79; RESP 18; TEMP 36.4; O2SAT 94
[2021-11-23] MEDS: Ferrous Sulfate 324 MG TABLET.DR PO (09:59)
[2021-11-23] MEDS: Thiamine HCL 100 MG TABLET PO (09:59)
--- NOTE | 2021-11-23 11:10 | P.PNIM_ITS ---
Subjective Subjective Date of Service: 11/23/21 Interval History: Follow-up for placement Re-evaluated by psych and deemed to be competent No overnight events No specific complaints Review of Systems Review of Systems: Yes all other systems are reviewed and are negative Constitutional Constitutional: Denies chills and Denies fever(s) Cardiovascular Cardiovascular: Denies chest pain, Denies palpitations and Denies dyspnea Respiratory Respiratory: Denies cough and Denies dyspnea Gastrointestinal Gastrointestinal: Denies abdominal pain, Denies nausea and Denies vomiting Endocrine Endocrine: Denies palpitations Physical Exam Vital Signs: Vital Signs: Last Vital Signs Temp 97.6 F 11/23/21 07:42 Pulse 79 11/23/21 07:42 Resp 18 11/23/21 07:42 BP 122/68 11/23/21 07:42 Pulse Ox 94 11/23/21 07:42 O2 Del Method 11/23/21 07:42 BMI result Body Mass Index 28.3 Appearing in no acute distress lung sounds are clear to auscultation heart regular rate rhythm, clear S1, S2 positive bowel sounds, abdomen is soft, nontender neuro patient is alert x3, no focal deficits Objective Data Active Medications Ferrous Sulfate (Ferrous Sulfate 324 Mg Tablet.) 324 mg PO DAILY [facility] Last Admin: 11/23/21 09:59 Dose: 324 mg Documented By: PABLO Thiamine HCl (Thiamine Hcl 100 Mg Tablet) 100 mg PO DAILY [facility] Last Admin: 11/23/21 09:59 Dose: 100 mg Documented By: PABLO Labs CBC & Chem 7: 11/07/21 12:30 11/07/21 12:38 Assessment and Plan (1) Cognitive impairment: Status: Acute Plan 46-year-old female with of substance abuse presents to the hospital with confusion found to lack capacity to make medical decisions and awaiting placement no acute medical changes remains stable Cognitive impairment suspected secondary to history of polysubstance abuse urine toxicology positive for cocaine, fentanyl, and marijuana although the patient adamantly denies using any illicit substance, her parents confirmed that she was actively using substances Neurology input appreciated, brain changes on imaging consistent with cocaine abuse per speech therapy note on August 11 patient has moderate cognitive linguistic impairment. psych re-eval 11/20 - reported improvement, now has capacity to make medical decisions E Coli UTI completed course of Abx DVT prophylaxis risk low risk - mechanical devices and ambulation Dispo-over the weekend case management and patient plan to reach out to family to formulate a plan for discharge Quality Stroke Does the patient have a stroke diagnosis?: No VTE Prior VTE?: No VTE Risk Level:: Medical - moderate - high VTE Device Contraindication: Treatment Not Indicated VTE Drug Contraindication: N/A - Med Ordered
[2021-11-23 16:00] VITALS: BP 108/62; PULSE 82; RESP 17; TEMP 36.3; O2SAT 95
[2021-11-23 23:45] VITALS: BP 102/55; PULSE 79; RESP 18; TEMP 36.5; O2SAT 94
[2021-11-24] MEDS: Ferrous Sulfate 324 MG TABLET.DR PO (07:52)
[2021-11-24] MEDS: Thiamine HCL 100 MG TABLET PO (07:52)
[2021-11-24 08:00] VITALS: BP 136/60; PULSE 70; RESP 18; TEMP 36.4; O2SAT 96
--- NOTE | 2021-11-24 09:10 | HO.PM.IMPN ---
Subjective Subjective Date of Service: 11/24/21 Interval History: Follow-up for placement Re-evaluated by psych and deemed to be competent No overnight events No specific complaints Review of Systems Review of Systems: Yes all other systems are reviewed and are negative Constitutional Constitutional: Denies chills and Denies fever(s) Cardiovascular Cardiovascular: Denies chest pain, Denies palpitations and Denies dyspnea Respiratory Respiratory: Denies cough and Denies dyspnea Gastrointestinal Gastrointestinal: Denies abdominal pain, Denies nausea and Denies vomiting Endocrine Endocrine: Denies palpitations Physical Exam Vital Signs: Vital Signs: Last Vital Signs Temp 97.5 F 11/24/21 08:00 Pulse 70 11/24/21 08:00 Resp 18 11/24/21 08:00 BP 136/60 11/24/21 08:00 Pulse Ox 96 11/24/21 08:00 O2 Del Method 11/24/21 08:00 BMI result Body Mass Index 28.3 Appearing in no acute distress lung sounds are clear to auscultation heart regular rate rhythm, clear S1, S2 positive bowel sounds, abdomen is soft, nontender neuro patient is alert x3, no focal deficits Objective Data Active Medications Ferrous Sulfate (Ferrous Sulfate 324 Mg Tablet.) 324 mg PO DAILY [facility] Last Admin: 11/24/21 07:52 Dose: 324 mg Documented By: EVERARDO Thiamine HCl (Thiamine Hcl 100 Mg Tablet) 100 mg PO DAILY [facility] Last Admin: 11/24/21 07:52 Dose: 100 mg Documented By: EVERARDO Labs CBC & Chem 7: 11/07/21 12:30 11/07/21 12:38 Assessment and Plan (1) Cognitive impairment: Status: Acute Plan 46-year-old female with of substance abuse presents to the hospital with confusion found to lack capacity to make medical decisions and awaiting placement no acute medical changes remains stable Cognitive impairment suspected secondary to history of polysubstance abuse urine toxicology positive for cocaine, fentanyl, and marijuana although the patient adamantly denies using any illicit substance, her parents confirmed that she was actively using substances Neurology input appreciated, brain changes on imaging consistent with cocaine abuse per speech therapy note on August 11 patient has moderate cognitive linguistic impairment. psych re-eval 11/20 - reported improvement, now has capacity to make medical decisions E Coli UTI completed course of Abx DVT prophylaxis risk low risk - mechanical devices and ambulation Dispo-over the weekend case management and patient plan to reach out to family to formulate a plan for discharge Quality Stroke Does the patient have a stroke diagnosis?: No VTE Prior VTE?: No VTE Risk Level:: Medical - moderate - high VTE Device Contraindication: Treatment Not Indicated VTE Drug Contraindication: N/A - Med Ordered
--- NOTE | 2021-11-24 12:03 | MHC.CM.PN ---
THIS CM AND SW ADJUNCT PHILOSOPHY FACULTY MET W/PT TO DISCUSS DISPO PT NOW HAS COMPETENCY BACK, IMER REPORTS SHE SPOKE W/FAMILY AND HER FATHER, MOTHER AND AUNT ARE UNABLE TO PROVIDE HOUSING FOR PT. PT REPORTS SHE HAS FRIENDS SHE MAY BE ABLE TO CALL TO SEE IF SHE COULD FIND SOMEONE TO STAY WITH, PT ALSO REPORTS SHE DOES HAVE A PHONE AND THAT HER DAD HAS IT, PT GAVE THIS CM PERMISSION TO SPEAK W/BOTH PARENTS/HCP. CM CONTACTED PT'S DAD/HCP JOHNATHAN AT NUMBER ON FILE AND INITIALLY JOHNATHAN WAS RESISTANT HOWEVER HE WILL HAVE PT'S CELL PHONE/SERVICE REINSTATED AND BRING IT IN WHEN HE VISITS TOMORROW. CM WILL CALL [employer] W/PT ONCE SHE HAS CELL PHONE DROPPED OFF BY FATHER. CM AND MAYA CM BOTH CONTACTED PT'S MOTHER ASHLEY AT NUMBER ON FILE TO LET HER KNOW PT'S CAPACITY HAS BEEN RESTORED AND WE ARE NOW TRYING TO FIND A DIFFERENT PLACEMENT FOR PT RATHER THAN 24HR CARE, ASHLEY APPRECIATIVE OF CALL AND WOULD LIKE TO BE NOTIFIED OF NEW D/C PLAN WHEN ONE IS CONFIRMED. CM ATTEMPTED TO CONTACT [facility] AT 12:13PM [phone], NO ANSWER AND MESSAGE LEFT W/CM CONTACT INFO. REFERRAL FAXED Wednesday11/21/21 FOR /[facility]IDENT[facility], CM AWAITING RESPONSE.
[2021-11-24 15:25] VITALS: BP 130/75; PULSE 83; RESP 18; TEMP 36.8; O2SAT 95
[2021-11-24 23:50] VITALS: BP 105/56; PULSE 84; RESP 18; TEMP 36.3; O2SAT 93
[2021-11-25 07:18] VITALS: BP 119/75; PULSE 82; RESP 18; TEMP 36.4; O2SAT 94
[2021-11-25] MEDS: Thiamine HCL 100 MG TABLET PO (07:53)
[2021-11-25] MEDS: Ferrous Sulfate 324 MG TABLET.DR PO (07:58)
--- NOTE | 2021-11-25 11:53 | HO.PM.IMPN ---
Subjective Subjective Date of Service: 11/25/21 Interval History: Follow-up for placement Re-evaluated by psych and deemed to be competent No overnight events No specific complaints Review of Systems Review of Systems: Yes all other systems are reviewed and are negative Constitutional Constitutional: Denies chills and Denies fever(s) Cardiovascular Cardiovascular: Denies chest pain, Denies palpitations and Denies dyspnea Respiratory Respiratory: Denies cough and Denies dyspnea Gastrointestinal Gastrointestinal: Denies abdominal pain, Denies nausea and Denies vomiting Endocrine Endocrine: Denies palpitations Physical Exam Vital Signs: Vital Signs: Last Vital Signs Temp 97.5 F 11/25/21 07:18 Pulse 82 11/25/21 07:18 Resp 18 11/25/21 07:18 BP 119/75 11/25/21 07:18 Pulse Ox 94 11/25/21 07:18 O2 Del Method 11/25/21 07:18 BMI result Body Mass Index 28.3 Appearing in no acute distress lung sounds are clear to auscultation heart regular rate rhythm, clear S1, S2 positive bowel sounds, abdomen is soft, nontender neuro patient is alert x3, no focal deficits Objective Data Active Medications Ferrous Sulfate (Ferrous Sulfate 324 Mg Tablet.) 324 mg PO DAILY [facility] Last Admin: 11/25/21 07:58 Dose: 324 mg Documented By: JOSEPH Thiamine HCl (Thiamine Hcl 100 Mg Tablet) 100 mg PO DAILY [facility] Last Admin: 11/25/21 07:53 Dose: 100 mg Documented By: JOSEPH Labs CBC & Chem 7: 11/07/21 12:30 11/07/21 12:38 Assessment and Plan (1) Cognitive impairment: Status: Acute Plan 46-year-old female with of substance abuse presents to the hospital with confusion found to lack capacity to make medical decisions and awaiting placement no acute medical changes remains stable Cognitive impairment suspected secondary to history of polysubstance abuse urine toxicology positive for cocaine, fentanyl, and marijuana although the patient adamantly denies using any illicit substance, her parents confirmed that she was actively using substances Neurology input appreciated, brain changes on imaging consistent with cocaine abuse per speech therapy note on August 11 patient has moderate cognitive linguistic impairment. psych re-eval 11/20 - reported improvement, now has capacity to make medical decisions E Coli UTI completed course of Abx Disposition in the process of contacting family to see if she would be able to stay with them, other alternatives include women's skilled nursing DVT prophylaxis risk low risk - mechanical devices and ambulation Dispo-over the weekend case management and patient plan to reach out to family to formulate a plan for discharge Quality Stroke Does the patient have a stroke diagnosis?: No VTE Prior VTE?: No VTE Risk Level:: Medical - moderate - high VTE Device Contraindication: Treatment Not Indicated VTE Drug Contraindication: N/A - Med Ordered
[2021-11-25 16:00] VITALS: BP 118/68; PULSE 88; TEMP 36.9; O2SAT 100
--- NOTE | 2021-11-25 16:24 | MHC.CM.PN ---
EMR REVIEWED, CM CONTACTED [facility] PROGRAM TO VERIFY IF THEY RECEIVED PT'S REFERRAL, PER PROGRAM THEY HAD NOT RECEIVED REFERRAL AND PER CM DIRECTOR REFERRAL SENT VIA CERTIFIED MAIL, MET W/PT TO HAVE RELEASES SIGNED FOR [facility] ACQU[facility]RAIN [facility] ([facility]) AND FAXED TO [phone]. CM ALSO MET W/PT TO CONTACT [employer] TO ATTEMPT TO SIGN UP FOR DISABILITY, PT DID SPEAK W/SOMEONE HOWEVER CALL DROPPED, D/T TO LATE HOUR AND HAVING TO WAIT ON HOLD FOR 45MIN CM WILL REATTEMPT W/PT IN AM. PT'S FATHER JOHNATHAN DID COME IN AND GAVE PT A NEW PHONE [phone], JOHNATHAN REQUESTED TO MEET W/PROVIDER WHO WAS NOTIFIED VIA TIGER AND DID MEET W/JOHNATHAN TO DISCUSS CASE IN DETAIL. ALTHOUGH PT'S CAPACITY HAS BEEN REINSTATED PT HAS GIVEN VERBAL CONSENT TO CONT TO CONTACT/UPDATE BOTH JOHNATHAN AND PT'S MOTHER ASHLEY WHO WOULD LIKE AN UPDATE ON PLAN ONCE WE HAVE A SAFE DCP. CM WILL CONT TO WORK ON PLACEMENT.
[2021-11-25 23:15] VITALS: BP 105/67; PULSE 79; RESP 17; TEMP 36.1; O2SAT 94
[2021-11-26] MEDS: Thiamine HCL 100 MG TABLET PO (07:37)
[2021-11-26] MEDS: Ferrous Sulfate 324 MG TABLET.DR PO (07:37)
[2021-11-26 08:00] VITALS: BP 122/66; PULSE 89; RESP 18; TEMP 36.6; O2SAT 95
--- NOTE | 2021-11-26 08:16 | P.PNIM_ITS ---
Subjective Subjective Date of Service: 11/26/21 Interval History: Follow-up for placement Re-evaluated by psych and deemed to be competent No overnight events No specific complaints Review of Systems Review of Systems: Yes all other systems are reviewed and are negative Constitutional Constitutional: Denies chills and Denies fever(s) Cardiovascular Cardiovascular: Denies chest pain, Denies palpitations and Denies dyspnea Respiratory Respiratory: Denies cough and Denies dyspnea Gastrointestinal Gastrointestinal: Denies abdominal pain, Denies nausea and Denies vomiting Endocrine Endocrine: Denies palpitations Physical Exam Vital Signs: Vital Signs: Last Vital Signs Temp 96.9 F 11/25/21 23:15 Pulse 79 11/25/21 23:15 Resp 17 11/25/21 23:15 BP 105/67 11/25/21 23:15 Pulse Ox 94 11/25/21 23:15 O2 Del Method 11/25/21 23:15 BMI result Body Mass Index 28.3 Appearing in no acute distress lung sounds are clear to auscultation heart regular rate rhythm, clear S1, S2 positive bowel sounds, abdomen is soft, nontender neuro patient is alert x3, no focal deficits Objective Data Active Medications Ferrous Sulfate (Ferrous Sulfate 324 Mg Tablet.) 324 mg PO DAILY [facility] Last Admin: 11/26/21 07:37 Dose: 324 mg Documented By: JOSEPH Thiamine HCl (Thiamine Hcl 100 Mg Tablet) 100 mg PO DAILY [facility] Last Admin: 11/26/21 07:37 Dose: 100 mg Documented By: JOSEPH Labs CBC & Chem 7: 11/07/21 12:30 11/07/21 12:38 Assessment and Plan (1) Cognitive impairment: Status: Acute Plan 46-year-old woman with history of substance abuse initially presented to [facility] with confusion and found to have lack of capacity, healthcare proxy was invoked and she was awaiting placement. She was re-evaluated on 11/20/2021 by the psychiatric team, she was found to have improvement in her cognition and was found to have capacity and ability to make medical decisions. She is aware that at this time the case management team is looking for safe placement for a safe disposition for her, unfortunately after long discussion with her family they are unable to assist her in any living arrangements at this time. Patient is aware of the plan and in agreement. Cognitive impairment likely secondary to polysubstance abuse Initially positive for cocaine, fentanyl, marijuana. 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 Discussed the importance of continuing drug cessation after discharge. E coli UTI Completed course of antibiotics DVT prophylaxis low risk, mechanical compression boots and ambulation Disposition case management formulating a plan for safe discharge Quality Stroke Does the patient have a stroke diagnosis?: No VTE Prior VTE?: No VTE Risk Level:: Medical - moderate - high VTE Device Contraindication: Treatment Not Indicated VTE Drug Contraindication: N/A - Med Ordered
--- NOTE | 2021-11-26 15:00 | MHC.CM.PN ---
CM CONTACTED [facility] TO VERIFY PT'S ARE NOT PUT OUT DURING DAY, PER STAFF THEY DO NOT HOWEVER THEY DO NOT CURRENTLY HAVE AVAILABLE BEDS, CM ALSO ATTMEPTED TO CONTACT /[facility]QU[facility]IN [facility] TO VERIFY THEY HAVE RECEIVED AND STARTED A FILE IN PT AT [phone], NO ANSWER AND MESSAGE LEFT W/CM CONTACT NUMBER, PER CM DIRECTOR LIAISON FROM [facility] WILL BE IN TO SEE PT BY END OF WEEK. CM WILL CONT TO FOLLOW D/C NEEDS.
[2021-11-26 15:46] VITALS: BP 122/71; PULSE 82; RESP 17; TEMP 36.7; O2SAT 97
--- NOTE | 2021-11-26 16:31 | MHC.CM.PN ---
CM ASSISTED PT IN ROOM TO CALL [employer], PT'S MOTHER ASHLEY AND DTR IN ROOM AT TIME, ASHLEY REPORTS SHE CAN ASSIST PT W/CALL. WHEN CM RETURNED TO CHECK IN W/PT, ASHLEY/DTR WERE GONE AND PT REPORTS THEY GOT THROUGH TO [employer] AND THEY WILL EMAIL APPLICATION TO [place] [address]. STEPHEN WILL FOLLOW-UP W/RUTH IN AM.
[2021-11-27] VITALS: BP 105/61; PULSE 78; RESP 18; TEMP 36.1; O2SAT 95
[2021-11-27 07:37] VITALS: BP 108/65; PULSE 81; RESP 18; TEMP 36.4; O2SAT 94
--- NOTE | 2021-11-27 09:17 | MHC.CM.PN ---
CM RECEIVED CALL BACK FROM MICHEL AT THE /[facility] ACQUIRED [facility]RAIN [facility]UR[facility] PROGRAM, MICHEL REPORTS THE PROGRAM ONLY TAKES DMG PT[facility]S FROM [facility] AND PT WOULD ALSO NEED TO HAVE A PLACE IN THE COMMUNITY TO D/C TO THEREFORE PT WAOULD BE DECLINED FROM THAT PROGRAM, MICHEL ALSO REPORTED THAT THERE ARE TWO [facility]GRAMS [facility] AND M[facility] RESIDENTIAL SUPPORTS THAT PT MAY BE APPROPRIATE FOR AND HE WILL EMAIL CM THE APPLICATIONS FOR THESE PROGRAMS. CM WILL FILL OUT APPS ONCE RECEIVED.
[2021-11-27] MEDS: Thiamine HCL 100 MG TABLET PO (09:49)
[2021-11-27] MEDS: Ferrous Sulfate 324 MG TABLET.DR PO (09:50)
--- NOTE | 2021-11-27 10:03 | MHC.CM.PN ---
PER CM DIRECTOR [facility] WILL BE IN TO EVALUATE PT TOMORROW 11/28 AT 1PM.
[2021-11-27 15:22] VITALS: BP 111/53; PULSE 88; RESP 14; TEMP 36.2; O2SAT 93
--- NOTE | 2021-11-27 15:53 | P.PNIM_ITS ---
Subjective Subjective Date of Service: 11/27/21 Interval History: Seen and examined this morning Follow-up for cognitive impairment, no overnight events No specific complaints this morning Review of Systems Review of Systems: Yes all other systems are reviewed and are negative Constitutional Constitutional: Denies chills and Denies fever(s) Cardiovascular Cardiovascular: Denies chest pain, Denies palpitations and Denies dyspnea Respiratory Respiratory: Denies cough and Denies dyspnea Endocrine Endocrine: Denies palpitations Physical Exam Vital Signs: Vital Signs: Last Vital Signs Temp 97.2 F 11/27/21 15:22 Pulse 88 11/27/21 15:22 Resp 14 11/27/21 15:22 BP 111/53 L 11/27/21 15:22 Pulse Ox 93 11/27/21 15:22 O2 Del Method 11/27/21 15:22 BMI result Body Mass Index 28.3 Const: General: cooperative, comfortable, no acute distress, alert and awake Nutritional Appearance: average body habitus Eyes: Pupils: Equal, round and reactive pupils present EOM: EOMs intact bilaterally Resp: Effort & Inspection: normal respiratory effort and able to speak in complete sentences Auscultation: clear to auscultation bilaterally Cardio: Rate: regular rate Heart sounds: S1 normal heart sound present and S2 normal heart sound present GI: Inspection: No distended Palpation (GI): Soft to palpation and nontender Neuro: Cranial nerves: Yes Equal, round and reactive pupils present Extrem: Other: Able to move all 4 extremities spontaneously General: Yes no pedal edema Objective Data Active Medications Ferrous Sulfate (Ferrous Sulfate 324 Mg Tablet.) 324 mg PO DAILY [facility] Last Admin: 11/27/21 09:50 Dose: 324 mg Documented By: IVANNA Thiamine HCl (Thiamine Hcl 100 Mg Tablet) 100 mg PO DAILY [facility] Last Admin: 11/27/21 09:49 Dose: 100 mg Documented By: IVANNA Labs CBC & Chem 7: 11/07/21 12:30 11/07/21 12:38 Assessment and Plan (1) Cognitive impairment: Status: Acute Plan 46-year-old woman with history of substance abuse initially presented to [facility] with confusion and found to have lack of capacity, healthcare proxy was invoked and she was awaiting placement. She was re-evaluated on 11/20/2021 by the psychiatric team, she was found to have improvement in her cognition and was found to have capacity and ability to make medical decisions. She is aware that at this time the case management team is looking for safe placement for a safe disposition for her, unfortunately after long discussion with her family they are unable to assist her in any living arrangements at this time. Patient is aware of the plan and in agreement. Cognitive impairment likely secondary to polysubstance abuse Initially positive for cocaine, fentanyl, marijuana. 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 Re-evaluation, patient now has capacity. Discussed the importance of continuing drug cessation after discharge. E coli UTI Completed course of antibiotics DVT prophylaxis low risk, mechanical compression boots and ambulation Disposition case management formulating a plan for safe discharge Quality Stroke Does the patient have a stroke diagnosis?: No VTE Prior VTE?: No VTE Risk Level:: Medical - moderate - high VTE Device Contraindication: Treatment Not Indicated VTE Drug Contraindication: N/A - Med Ordered
[2021-11-27 23:40] VITALS: BP 101/57; PULSE 88; RESP 15; TEMP 36.2; O2SAT 94
[2021-11-28 07:49] VITALS: BP 121/71; PULSE 78; RESP 18; TEMP 36.1; O2SAT 95
[2021-11-28] MEDS: Thiamine HCL 100 MG TABLET PO (09:38)
[2021-11-28] MEDS: Ferrous Sulfate 324 MG TABLET.DR PO (09:38)
--- NOTE | 2021-11-28 13:52 | MHC.CM.PN ---
MICHEL FROM [facility] ON SITE TO ASSESS PATIENT. HE REPORTS THE PT APPEARS APPROPRIATE FOR THEIR FACILITY AND HE WILL DISCUSS THE CASE WITH [facility] HE REPORTS HE WILL PROVIDE RESPONSE ONCE A DECISION IS MADE
--- NOTE | 2021-11-28 14:04 | P.PNIM_ITS ---
Subjective Subjective Date of Service: 11/28/21 Interval History: Seen and examined this morning Follow-up for cognitive impairment No overnight events No specific complaints this morning Review of Systems Review of Systems: Yes all other systems are reviewed and are negative Constitutional Constitutional: Denies chills and Denies fever(s) ENT Ears, Nose, Mouth, and Throat: Denies dizziness Cardiovascular Cardiovascular: Denies chest pain and Denies dyspnea Respiratory Respiratory: Denies dyspnea Gastrointestinal Gastrointestinal: Denies abdominal pain Neurologic Neurologic: Denies dizziness Physical Exam Vital Signs: Vital Signs: Last Vital Signs Temp 96.9 F 11/28/21 07:49 Pulse 78 11/28/21 07:49 Resp 18 11/28/21 07:49 BP 121/71 11/28/21 07:49 Pulse Ox 95 11/28/21 07:49 O2 Del Method 11/28/21 07:49 BMI result Body Mass Index 28.3 Const: General: cooperative, comfortable, no acute distress, alert and awake Nutritional Appearance: average body habitus Resp: Effort & Inspection: normal respiratory effort and able to speak in complete sentences Auscultation: clear to auscultation bilaterally Cardio: Rate: regular rate Heart sounds: S1 normal heart sound present and S2 normal heart sound present GI: Inspection: No distended Palpation (GI): Soft to palpation and nontender Extrem: Other: Able to move all 4 extremities spontaneously General: Yes no pedal edema Objective Data Active Medications Ferrous Sulfate (Ferrous Sulfate 324 Mg Tablet.) 324 mg PO DAILY [facility] Last Admin: 11/28/21 09:38 Dose: 324 mg Documented By: IVANNA Thiamine HCl (Thiamine Hcl 100 Mg Tablet) 100 mg PO DAILY [facility] Last Admin: 11/28/21 09:38 Dose: 100 mg Documented By: IVANNA Labs CBC & Chem 7: 11/07/21 12:30 11/07/21 12:38 Assessment and Plan (1) Cognitive impairment: Status: Acute Plan 46-year-old woman with history of substance abuse initially presented to [facility] with confusion and found to have lack of capacity, healthcare proxy was invoked and she was awaiting placement. She was re-evaluated on 11/20/2021 by the psychiatric team, she was found to have improvement in her cognition and was found to have capacity and ability to make medical decisions. She is aware that at this time the case management team is looking for safe placement for a safe disposition for her, unfortunately after long discussion with her family they are unable to assist her in any living arrangements at this time. Patient is aware of the plan and in agreement. Cognitive impairment likely secondary to polysubstance abuse Initially positive for cocaine, fentanyl, marijuana. 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 Re-evaluation, patient now has capacity. Discussed the importance of continuing drug cessation after discharge. E coli UTI Completed course of antibiotics DVT prophylaxis low risk, mechanical compression boots and ambulation Disposition case management formulating a plan for safe discharge Quality Stroke Does the patient have a stroke diagnosis?: No VTE Prior VTE?: No VTE Risk Level:: Medical - moderate - high VTE Device Contraindication: Treatment Not Indicated VTE Drug Contraindication: N/A - Med Ordered
[2021-11-28 16:14] VITALS: BP 132/66; PULSE 80; RESP 18; TEMP 36.7; O2SAT 96
[2021-11-28 23:55] VITALS: BP 114/68; PULSE 70; RESP 18; TEMP 36.6; O2SAT 94
[2021-11-29 08:00] VITALS: BP 119/68; PULSE 76; RESP 18; TEMP 36.1; O2SAT 96
[2021-11-29] MEDS: Ferrous Sulfate 324 MG TABLET.DR PO (09:12)
[2021-11-29] MEDS: Thiamine HCL 100 MG TABLET PO (09:12)
--- NOTE | 2021-11-29 15:21 | HO.PM.IMPN ---
Subjective Subjective Date of Service: 11/29/21 Interval History: seen and examined this morning follow up for placement no overnight events no specific complaints Review of Systems Review of Systems: Yes all other systems are reviewed and are negative Constitutional Constitutional: Denies chills and Denies fever(s) Cardiovascular Cardiovascular: Denies chest pain, Denies palpitations and Denies dyspnea Respiratory Respiratory: Denies cough and Denies dyspnea Gastrointestinal Gastrointestinal: Denies abdominal pain, Denies nausea and Denies vomiting Endocrine Endocrine: Denies palpitations Physical Exam Vital Signs: Vital Signs: Last Vital Signs Temp 96.9 F 11/29/21 08:00 Pulse 76 11/29/21 08:00 Resp 18 11/29/21 08:00 BP 119/68 11/29/21 08:00 Pulse Ox 96 11/29/21 08:00 O2 Del Method 11/29/21 08:00 BMI result Body Mass Index 28.3 Const: General: cooperative, comfortable, no acute distress, alert and awake Nutritional Appearance: average body habitus Resp: Effort & Inspection: normal respiratory effort and able to speak in complete sentences Auscultation: clear to auscultation bilaterally Cardio: Rate: regular rate Heart sounds: S1 normal heart sound present and S2 normal heart sound present GI: Inspection: No distended Palpation (GI): Soft to palpation and nontender Extrem: Other: Able to move all 4 extremities spontaneously General: Yes no pedal edema Objective Data Active Medications Ferrous Sulfate (Ferrous Sulfate 324 Mg Tablet.) 324 mg PO DAILY [facility] Last Admin: 11/29/21 09:12 Dose: 324 mg Documented By: AZEEM Thiamine HCl (Thiamine Hcl 100 Mg Tablet) 100 mg PO DAILY [facility] Last Admin: 11/29/21 09:12 Dose: 100 mg Documented By: AZEEM Labs CBC & Chem 7: 11/07/21 12:30 11/07/21 12:38 Assessment and Plan (1) Cognitive impairment: Status: Acute Plan 46-year-old woman with history of substance abuse initially presented to [facility] with confusion and found to have lack of capacity, healthcare proxy was invoked and she was awaiting placement. She was re-evaluated on 11/20/2021 by the psychiatric team, she was found to have improvement in her cognition and was found to have capacity and ability to make medical decisions. She is aware that at this time the case management team is looking for safe placement for a safe disposition for her, unfortunately after long discussion with her family they are unable to assist her in any living arrangements at this time. Patient is aware of the plan and in agreement. Cognitive impairment likely secondary to polysubstance abuse Initially positive for cocaine, fentanyl, marijuana. 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 Re-evaluation, patient now has capacity. Discussed the importance of continuing drug cessation after discharge. E coli UTI Completed course of antibiotics DVT prophylaxis low risk, mechanical compression boots and ambulation Disposition case management formulating a plan for safe discharge Quality Stroke Does the patient have a stroke diagnosis?: No VTE Prior VTE?: No VTE Risk Level:: Medical - moderate - high VTE Device Contraindication: Treatment Not Indicated VTE Drug Contraindication: N/A - Med Ordered
[2021-11-29 15:32] VITALS: BP 112/69; PULSE 81; RESP 17; TEMP 36.7; O2SAT 95
[2021-11-30] VITALS: BP 105/63; PULSE 79; RESP 17; TEMP 36.4; O2SAT 95
[2021-11-30] MEDS: Thiamine HCL 100 MG TABLET PO (07:47)
[2021-11-30] MEDS: Ferrous Sulfate 324 MG TABLET.DR PO (07:48)
[2021-11-30 07:57] VITALS: BP 120/72; PULSE 78; RESP 14; TEMP 36.1; O2SAT 92
--- NOTE | 2021-11-30 09:45 | HO.PM.IMPN ---
Subjective Subjective Date of Service: 11/30/21 Interval History: seen and examined this morning follow up for placement no overnight events no specific complaints Review of Systems no new issues Physical Exam Vital Signs: Vital Signs: Last Vital Signs Temp 96.9 F 11/30/21 07:57 Pulse 78 11/30/21 07:57 Resp 14 11/30/21 07:57 BP 120/72 11/30/21 07:57 Pulse Ox 92 11/30/21 07:57 O2 Del Method 11/30/21 07:57 BMI result Body Mass Index 28.3 Const: Other: ?General sitting comfortably, in no acute distress ?neck no JVD ?lung? clear to auscultation ?heart regular rate rhythm, ?abdomen is soft, nontender ?neuro patient is alert x3 ?extremities no edema Objective Data Active Medications Ferrous Sulfate (Ferrous Sulfate 324 Mg Tablet.) 324 mg PO DAILY [facility] Last Admin: 11/30/21 07:48 Dose: 324 mg Documented By: JOSEPH Thiamine HCl (Thiamine Hcl 100 Mg Tablet) 100 mg PO DAILY [facility] Last Admin: 11/30/21 07:47 Dose: 100 mg Documented By: JOSEPH Labs CBC & Chem 7: 11/07/21 12:30 11/07/21 12:38 Assessment and Plan (1) Cognitive impairment: Status: Acute Plan 46-year-old woman with history of substance abuse initially presented to [facility] with confusion and found to have lack of capacity, healthcare proxy was invoked and she was awaiting placement. She was re-evaluated on 11/20/2021 by the psychiatric team, she was found to have improvement in her cognition and was found to have capacity and ability to make medical decisions. She is aware that at this time the case management team is looking for safe placement for a safe disposition for her, unfortunately after long discussion with her family they are unable to assist her in any living arrangements at this time. Patient is aware of the plan and in agreement. essentially no new issues Cognitive impairment likely secondary to polysubstance abuse Initially positive for cocaine, fentanyl, marijuana. 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 Re-evaluation, patient now has capacity. Discussed the importance of continuing drug cessation after discharge. E coli UTI Completed course of antibiotics DVT prophylaxis low risk, mechanical compression boots and ambulation Disposition case management formulating a plan for safe discharge Quality Stroke Does the patient have a stroke diagnosis?: No VTE Prior VTE?: No VTE Risk Level:: Medical - moderate - high VTE Device Contraindication: Treatment Not Indicated VTE Drug Contraindication: N/A - Med Ordered
[2021-11-30 15:42] VITALS: BP 117/64; PULSE 81; RESP 18; TEMP 37; O2SAT 95
[2021-11-30 23:43] VITALS: BP 100/53; PULSE 84; RESP 17; TEMP 36.4; O2SAT 95
[2021-12-01 07:31] VITALS: BP 116/74; PULSE 87; RESP 18; TEMP 36.7; O2SAT 94
[2021-12-01] MEDS: Ferrous Sulfate 324 MG TABLET.DR PO (08:41)
[2021-12-01] MEDS: Thiamine HCL 100 MG TABLET PO (08:41)
--- NOTE | 2021-12-01 09:21 | MHC.CM.PN ---
EMR REVIEWED, PT REMAINS MEDICALLY CLEARED FOR D/C, CM SEEN BY SHEY MEDRANO DIRECTOR OF NEURO/TBI REHAB PROGRAM ON TUESDAY 11/28, CM REACHED OUT TO [facility] VIA REFERRAL YESTERDAY 11/30 WHO RESPONDED THIS MORNING REPORTING THEY WILL DISCUSS W/TEAM TODAY AND GET BACK TO CM. CM WILL CONT TO FOLLOW.
--- NOTE | 2021-12-01 10:42 | P.PNIM_ITS ---
Subjective Subjective Date of Service: 12/01/21 Interval History: seen and examined this morning follow up for placement no overnight events no specific complaints Review of Systems no new issues Physical Exam Vital Signs: Vital Signs: Last Vital Signs Temp 98.1 F 12/01/21 07:31 Pulse 87 12/01/21 07:31 Resp 18 12/01/21 07:31 BP 116/74 12/01/21 07:31 Pulse Ox 94 12/01/21 07:31 O2 Del Method 12/01/21 07:31 BMI result Body Mass Index 28.3 Const: Other: ?General sitting comfortably, in no acute distress ?neck no JVD ?lung? clear to auscultation ?heart regular rate rhythm, ?abdomen is soft, nontender ?neuro patient is alert x3 ?extremities no edema Objective Data Active Medications Ferrous Sulfate (Ferrous Sulfate 324 Mg Tablet.) 324 mg PO DAILY [facility] Last Admin: 12/01/21 08:41 Dose: 324 mg Documented By: IVANNA Thiamine HCl (Thiamine Hcl 100 Mg Tablet) 100 mg PO DAILY [facility] Last Admin: 12/01/21 08:41 Dose: 100 mg Documented By: IVANNA Labs CBC & Chem 7: 11/07/21 12:30 11/07/21 12:38 Assessment and Plan (1) Cognitive impairment: Status: Acute Plan 46-year-old woman with history of substance abuse initially presented to [facility] with confusion and found to have lack of capacity, healthcare proxy was invoked and she was awaiting placement. She was re-evaluated on 11/20/2021 by the psychiatric team, she was found to have improvement in her cognition and was found to have capacity and ability to make medical decisions. She is aware that at this time the case management team is looking for safe placement for a safe disposition for her, unfortunately after long discussion with her family they are unable to assist her in any living arrangements at this time. Patient is aware of the plan and in agreement. essentially no new issues Cognitive impairment likely secondary to polysubstance abuse Initially positive for cocaine, fentanyl, marijuana. 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 Re-evaluation, patient now has capacity. Discussed the importance of continuing drug cessation after discharge. E coli UTI Completed course of antibiotics DVT prophylaxis low risk, mechanical compression boots and ambulation Disposition case management formulating a plan for safe discharge, probably SNF Quality Stroke Does the patient have a stroke diagnosis?: No VTE Prior VTE?: No VTE Risk Level:: Medical - moderate - high VTE Device Contraindication: Treatment Not Indicated VTE Drug Contraindication: N/A - Med Ordered
[2021-12-01 16:00] VITALS: RESP 18
[2021-12-02] VITALS: BP 102/57; PULSE 91; RESP 18; TEMP 36.6; O2SAT 95
[2021-12-02 07:25] VITALS: BP 112/64; PULSE 78; RESP 18; TEMP 36.2; O2SAT 95
[2021-12-02] MEDS: Thiamine HCL 100 MG TABLET PO (08:50)
[2021-12-02] MEDS: Ferrous Sulfate 324 MG TABLET.DR PO (08:50)
--- NOTE | 2021-12-02 12:26 | P.PNIM_ITS ---
Subjective Subjective Date of Service: 12/02/21 Interval History: seen and examined this morning follow up for placement no overnight events no specific complaints, looking forward to leaving hospital soon Review of Systems no new issues Physical Exam Vital Signs: Vital Signs: Last Vital Signs Temp 97.2 F 12/02/21 07:25 Pulse 78 12/02/21 07:25 Resp 18 12/02/21 07:25 BP 112/64 12/02/21 07:25 Pulse Ox 95 12/02/21 07:25 O2 Del Method 12/02/21 07:25 BMI result Body Mass Index 28.3 Const: Other: ?General sitting comfortably, in no acute distress ?neck no JVD ?lung? clear to auscultation ?heart regular rate rhythm, ?abdomen is soft, nontender ?neuro patient is alert x3 ?extremities no edema Objective Data Active Medications Ferrous Sulfate (Ferrous Sulfate 324 Mg Tablet.) 324 mg PO DAILY [facility] Last Admin: 12/02/21 08:50 Dose: 324 mg Documented By: IVANNA Thiamine HCl (Thiamine Hcl 100 Mg Tablet) 100 mg PO DAILY [facility] Last Admin: 12/02/21 08:50 Dose: 100 mg Documented By: IVANNA Labs CBC & Chem 7: 11/07/21 12:30 11/07/21 12:38 Assessment and Plan (1) Cognitive impairment: Status: Acute Plan 46-year-old woman with history of substance abuse initially presented to [facility] with confusion and found to have lack of capacity, healthcare proxy was invoked and she was awaiting placement. She was re-evaluated on 11/20/2021 by the psychiatric team, she was found to have improvement in her cognition and was found to have capacity and ability to make medical decisions. She is aware that at this time the case management team is looking for safe placement for a safe disposition for her, unfortunately after long discussion with her family they are unable to assist her in any living arrangements at this time. Patient is aware of the plan and in agreement. essentially no new issues since last encounter Cognitive impairment likely secondary to polysubstance abuse Initially positive for cocaine, fentanyl, marijuana. 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 Re-evaluation, patient now has capacity. Discussed the importance of continuing drug cessation after discharge. E coli UTI Completed course of antibiotics DVT prophylaxis low risk, mechanical compression boots and ambulation Disposition case management formulating a plan for safe discharge, probably SNF anytime soon Quality Stroke Does the patient have a stroke diagnosis?: No VTE Prior VTE?: No VTE Risk Level:: Medical - moderate - high VTE Device Contraindication: Treatment Not Indicated VTE Drug Contraindication: N/A - Med Ordered
[2021-12-02 15:51] VITALS: BP 119/66; PULSE 88; RESP 16; TEMP 37.1; O2SAT 95
[2021-12-03] VITALS: BP 96/54; PULSE 80; RESP 17; TEMP 36.7; O2SAT 95
[2021-12-03 07:55] VITALS: BP 120/68; PULSE 82; RESP 18; TEMP 36.3; O2SAT 95
[2021-12-03] MEDS: Ferrous Sulfate 324 MG TABLET.DR PO (09:24)
[2021-12-03] MEDS: Thiamine HCL 100 MG TABLET PO (09:24)
--- NOTE | 2021-12-03 12:40 | P.PNIM_ITS ---
Subjective Subjective Date of Service: 12/03/21 Interval History: seen and examined this morning follow up for placement no overnight events no specific complaints, looking forward to leaving hospital soon Review of Systems no new issues Physical Exam Vital Signs: Vital Signs: Last Vital Signs Temp 97.3 F 12/03/21 07:55 Pulse 82 12/03/21 07:55 Resp 18 12/03/21 07:55 BP 120/68 12/03/21 07:55 Pulse Ox 95 12/03/21 07:55 O2 Del Method 12/03/21 07:55 BMI result Body Mass Index 28.3 Const: Other: ?General sitting comfortably, in no acute distress ?neck no JVD ?lung? clear to auscultation ?heart regular rate rhythm, ?abdomen is soft, nontender ?neuro patient is alert x3 ?extremities no edema Objective Data Active Medications Ferrous Sulfate (Ferrous Sulfate 324 Mg Tablet.) 324 mg PO DAILY [facility] Last Admin: 12/03/21 09:24 Dose: 324 mg Documented By: RIKI Thiamine HCl (Thiamine Hcl 100 Mg Tablet) 100 mg PO DAILY [facility] Last Admin: 12/03/21 09:24 Dose: 100 mg Documented By: RIKI Labs CBC & Chem 7: 11/07/21 12:30 11/07/21 12:38 Assessment and Plan (1) Cognitive impairment: Status: Acute Plan 46-year-old woman with history of substance abuse initially presented to [facility] with confusion and found to have lack of capacity, healthcare proxy was invoked and she was awaiting placement. She was re-evaluated on 11/20/2021 by the psychiatric team, she was found to have improvement in her cognition and was found to have capacity and ability to make medical decisions. She is aware that at this time the case management team is looking for safe placement for a safe disposition for her, unfortunately after long discussion with her family they are unable to assist her in any living arrangements at this time. Patient is aware of the plan and in agreement. essentially no new issues since last encounter Cognitive impairment likely secondary to polysubstance abuse Initially positive for cocaine, fentanyl, marijuana. 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 Re-evaluation, patient now has capacity. Discussed the importance of continuing drug cessation after discharge. E coli UTI Completed course of antibiotics DVT prophylaxis low risk, mechanical compression boots and ambulation Disposition case management formulating a plan for safe discharge, probably SNF anytime soon probably discharge to SNF tomorrow, CXR at request of SNF to rule out TB, he is no sings/symptoms of TB, no known history or RFs Quality Stroke Does the patient have a stroke diagnosis?: No VTE Prior VTE?: No VTE Risk Level:: Medical - moderate - high VTE Device Contraindication: Treatment Not Indicated VTE Drug Contraindication: N/A - Med Ordered
--- NOTE | 2021-12-03 12:52 | MHC.CM.PN ---
STEPHEN CONTACTED JUAN AT 12:35PM [phone] 'S ACQUIRED BI/MOVING FORWARD ASSISTED PROGRAM, JUAN IS AWARE THAT PT HAS PLACEMENT AT [facility] AND SUGGEST THAT AN APPLICATION FOR THEIR PROGRAM BE SENT W/HER THE FACILITY CAN APPLY SOON SHE IS ADMITTED TO FACILITY, STEPHEN WILL PRINT OUT NGOZI AND SEND W/PT UPON D/C.
--- NOTE | 2021-12-03 13:12 | MHC.CM.PN ---
CM SPOKE W/[facility] WHO REPORTS PT SHOULD BE ABLE TO TXFR BY NEXT WEEK, [facility] REQUESTED CONTACT INFO FOR PT'S [place] [employer], NUMBER AND EXTENSION SENT TO [facility] VIA [employer], PRE-ADMIT FINANCIAL QUESTIONAIRE COMPLETED AND SENT VIA [employer], PER [facility] PT CAN HAVE CXR TO R/O TB ANY TIME AND THIS HAS BEEN REQUESTED AND ORDERED BY HOSPITALIST. CM TO COMPLETE MDS/PASSR 1 PER REQUEST AND WILL BE SENT VIA [employer] ONCE COMPLETE.
[2021-12-03 15:30] VITALS: BP 106/68; PULSE 85; RESP 18; TEMP 36; O2SAT 93
[2021-12-03 23:18] VITALS: BP 91/66; PULSE 98; RESP 16; TEMP 36.3; O2SAT 95
[2021-12-04 07:21] VITALS: BP 107/64; PULSE 83; RESP 18; TEMP 36.3; O2SAT 98
[2021-12-04] MEDS: Ferrous Sulfate 324 MG TABLET.DR PO (08:54)
[2021-12-04] MEDS: Thiamine HCL 100 MG TABLET PO (08:54)
--- NOTE | 2021-12-04 11:27 | HO.PM.IMPN ---
Subjective Subjective Date of Service: 12/04/21 Interval History: seen and examined this morning follow up for placement no overnight events no specific complaints, looking forward to leaving hospital soon Review of Systems no issues Physical Exam Vital Signs: Vital Signs: Last Vital Signs Temp 97.3 F 12/04/21 07:21 Pulse 83 12/04/21 07:21 Resp 18 12/04/21 07:21 BP 107/64 12/04/21 07:21 Pulse Ox 98 12/04/21 07:21 O2 Del Method 12/04/21 07:21 BMI result Body Mass Index 28.3 Const: Other: ?General sitting comfortably, in no acute distress ?neck no JVD ?lung? clear to auscultation ?heart regular rate rhythm, ?abdomen is soft, nontender ?neuro patient is alert x3 ?extremities no edema Objective Data Active Medications Ferrous Sulfate (Ferrous Sulfate 324 Mg Tablet.) 324 mg PO DAILY [facility] Last Admin: 12/04/21 08:54 Dose: 324 mg Documented By: RIKI Thiamine HCl (Thiamine Hcl 100 Mg Tablet) 100 mg PO DAILY [facility] Last Admin: 12/04/21 08:54 Dose: 100 mg Documented By: RIKI Labs CBC & Chem 7: 11/07/21 12:30 11/07/21 12:38 Assessment and Plan (1) Cognitive impairment: Status: Acute Plan 46-year-old woman with history of substance abuse initially presented to [facility] with confusion and found to have lack of capacity, healthcare proxy was invoked and she was awaiting placement. She was re-evaluated on 11/20/2021 by the psychiatric team, she was found to have improvement in her cognition and was found to have capacity and ability to make medical decisions. She is aware that at this time the case management team is looking for safe placement for a safe disposition for her, unfortunately after long discussion with her family they are unable to assist her in any living arrangements at this time. Patient is aware of the plan and in agreement. essentially no new issues since last encounter Cognitive impairment likely secondary to polysubstance abuse Initially positive for cocaine, fentanyl, marijuana. 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 Re-evaluation, patient now has capacity. Discussed the importance of continuing drug cessation after discharge. E coli UTI Completed course of antibiotics DVT prophylaxis low risk, mechanical compression boots and ambulation Disposition case management formulating a plan for safe discharge, probably SNF anytime soon probably discharge to SNF tomorrow, CXR at request of SNF to rule out TB, he is no sings/symptoms of TB, no known history or RFs Quality Stroke Does the patient have a stroke diagnosis?: No VTE Prior VTE?: No VTE Risk Level:: Medical - moderate - high VTE Device Contraindication: Treatment Not Indicated VTE Drug Contraindication: N/A - Med Ordered
[2021-12-04 15:55] VITALS: BP 123/59; PULSE 77; RESP 17; TEMP 37.2; O2SAT 95
[2021-12-04 23:45] VITALS: BP 99/49; PULSE 89; RESP 18; TEMP 36.3; O2SAT 99
[2021-12-05 07:23] VITALS: BP 116/71; PULSE 82; RESP 16; TEMP 36.8; O2SAT 95
[2021-12-05] MEDS: Ferrous Sulfate 324 MG TABLET.DR PO (08:12)
[2021-12-05] MEDS: Thiamine HCL 100 MG TABLET PO (08:12)
--- NOTE | 2021-12-05 09:24 | P.PNIM_ITS ---
Subjective Subjective Date of Service: 12/05/21 Interval History: seen and examined this morning follow up for placement no overnight events no specific complaints, looking forward to leaving hospital soon Review of Systems no issues Physical Exam Vital Signs: Vital Signs: Last Vital Signs Temp 98.3 F 12/05/21 07:23 Pulse 82 12/05/21 07:23 Resp 16 12/05/21 07:23 BP 116/71 12/05/21 07:23 Pulse Ox 95 12/05/21 07:23 O2 Del Method 12/05/21 07:23 BMI result Body Mass Index 28.3 Const: Other: ?General sitting comfortably, in no acute distress ?neck no JVD ?lung? clear to auscultation ?heart regular rate rhythm, ?abdomen is soft, nontender ?neuro patient is alert x3 ?extremities no edema Objective Data Active Medications Ferrous Sulfate (Ferrous Sulfate 324 Mg Tablet.) 324 mg PO DAILY [facility] Last Admin: 12/05/21 08:12 Dose: 324 mg Documented By: EVERARDO Thiamine HCl (Thiamine Hcl 100 Mg Tablet) 100 mg PO DAILY [facility] Last Admin: 12/05/21 08:12 Dose: 100 mg Documented By: EVERARDO Labs CBC & Chem 7: 11/07/21 12:30 11/07/21 12:38 Assessment and Plan (1) Cognitive impairment: Status: Acute Plan 46-year-old woman with history of substance abuse initially presented to [facility] with confusion and found to have lack of capacity, healthcare proxy was invoked and she was awaiting placement. She was re-evaluated on 11/20/2021 by the psychiatric team, she was found to have improvement in her cognition and was found to have capacity and ability to make medical decisions. She is aware that at this time the case management team is looking for safe placement for a safe disposition for her, unfortunately after long discussion with her family they are unable to assist her in any living arrangements at this time. Patient is aware of the plan and in agreement. essentially no new issues since last encounter Cognitive impairment likely secondary to polysubstance abuse Initially positive for cocaine, fentanyl, marijuana. 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 Re-evaluation, patient now has capacity. Discussed the importance of continuing drug cessation after discharge. E coli UTI Completed course of antibiotics DVT prophylaxis low risk, mechanical compression boots and ambulation Disposition case management formulating a plan for safe discharge, probably SNF anytime soon I spoke to patient's father at [facility] yesterday and he raised concern of patient's mental capapcity and memory lapses to be able to make sound decisions,? will discuss this in multi disciplinary round and consider reconsulting Psych. He also ask for a repeat head MRI Quality Stroke Does the patient have a stroke diagnosis?: No VTE Prior VTE?: No VTE Risk Level:: Medical - moderate - high VTE Device Contraindication: Treatment Not Indicated VTE Drug Contraindication: N/A - Med Ordered
--- NOTE | 2021-12-05 13:47 | MHC.CM.PN ---
emr reviewed, cm received a call from Matthew López for additional information which was provided, antic d/c to snf early next week, cm to folow d/c needs.
[2021-12-05 15:12] VITALS: BP 110/57; PULSE 93; RESP 17; TEMP 36.7; O2SAT 94
[2021-12-05 23:37] VITALS: BP 112/65; PULSE 77; RESP 18; TEMP 36.7; O2SAT 94
[2021-12-06 07:50] VITALS: BP 113/64; PULSE 86; RESP 18; TEMP 36; O2SAT 95
--- NOTE | 2021-12-06 08:09 | P.PNIM_ITS ---
Subjective Subjective Date of Service: 12/06/21 Interval History: seen and examined this morning follow up for placement no overnight events no specific complaints, looking forward to leaving hospital soon, has been accepted to rehab Review of Systems no issues Physical Exam Vital Signs: Vital Signs: Last Vital Signs Temp 96.8 F 12/06/21 07:50 Pulse 86 12/06/21 07:50 Resp 18 12/06/21 07:50 BP 113/64 12/06/21 07:50 Pulse Ox 95 12/06/21 07:50 O2 Del Method 12/06/21 07:50 BMI result Body Mass Index 28.3 Const: Other: ?General sitting comfortably, in no acute distress ?neck no JVD ?lung? clear to auscultation ?heart regular rate rhythm, ?abdomen is soft, nontender ?neuro patient is alert x3 ?extremities no edema Objective Data Active Medications Ferrous Sulfate (Ferrous Sulfate 324 Mg Tablet.) 324 mg PO DAILY [facility] Last Admin: 12/05/21 08:12 Dose: 324 mg Documented By: EVERARDO Thiamine HCl (Thiamine Hcl 100 Mg Tablet) 100 mg PO DAILY [facility] Last Admin: 12/05/21 08:12 Dose: 100 mg Documented By: EVERARDO Labs CBC & Chem 7: 11/07/21 12:30 11/07/21 12:38 Assessment and Plan (1) Cognitive impairment: Status: Acute Plan 46-year-old woman with history of substance abuse initially presented to [facility] with confusion and found to have lack of capacity, healthcare proxy was invoked and she was awaiting placement. She was re-evaluated on 11/20/2021 by the psychiatric team, she was found to have improvement in her cognition and was found to have capacity and ability to make medical decisions. She is aware that at this time the case management team is looking for safe placement for a safe disposition for her, unfortunately after long discussion with her family they are unable to assist her in any living arrangements at this time. Patient is aware of the plan and in agreement. essentially no new issues since last encounter Cognitive impairment likely secondary to polysubstance abuse Initially positive for cocaine, fentanyl, marijuana. 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 Re-evaluation, patient now has capacity. Discussed the importance of continuing drug cessation after discharge. E coli UTI Completed course of antibiotics DVT prophylaxis low risk, mechanical compression boots and ambulation Disposition case management formulating a plan for safe discharge, probably SNF anytime soon I spoke to patient's father at [facility] yesterday and he raised concern of patient's mental capapcity and memory lapses to be able to make sound d ecisions,? will discuss this in multi disciplinary round and consider reconsulting Psych. He also ask for a repeat head MRI which i don't think is indicated at this time Quality Stroke Does the patient have a stroke diagnosis?: No VTE Prior VTE?: No VTE Risk Level:: Medical - moderate - high VTE Device Contraindication: Treatment Not Indicated VTE Drug Contraindication: N/A - Med Ordered
[2021-12-06] MEDS: Thiamine HCL 100 MG TABLET PO (08:44)
[2021-12-06] MEDS: Ferrous Sulfate 324 MG TABLET.DR PO (08:44)
[2021-12-06 16:11] VITALS: BP 110/55; PULSE 84; RESP 18; TEMP 36.3; O2SAT 93
[2021-12-07] VITALS: BP 92/50; PULSE 88; RESP 18; TEMP 36.7; O2SAT 94
[2021-12-07 07:51] VITALS: BP 121/64; PULSE 85; RESP 18; TEMP 36.4; O2SAT 95
[2021-12-07] MEDS: Ferrous Sulfate 324 MG TABLET.DR PO (09:32)
[2021-12-07] MEDS: Thiamine HCL 100 MG TABLET PO (09:32)
--- NOTE | 2021-12-07 09:52 | HO.PM.IMPN ---
Subjective Subjective Date of Service: 12/07/21 Interval History: seen and examined this morning follow up for placement no overnight events no specific complaints, looking forward to leaving hospital soon, has been accepted to rehab Review of Systems no issues Physical Exam Vital Signs: Vital Signs: Last Vital Signs Temp 97.5 F 12/07/21 07:51 Pulse 85 12/07/21 07:51 Resp 18 12/07/21 07:51 BP 121/64 12/07/21 07:51 Pulse Ox 95 12/07/21 07:51 O2 Del Method 12/07/21 07:51 BMI result Body Mass Index 28.3 Const: Other: ?General sitting comfortably, in no acute distress ?neck no JVD ?lung? clear to auscultation ?heart regular rate rhythm, ?abdomen is soft, nontender ?neuro patient is alert x3 ?extremities no edema Objective Data Active Medications Ferrous Sulfate (Ferrous Sulfate 324 Mg Tablet.) 324 mg PO DAILY [facility] Last Admin: 12/07/21 09:32 Dose: 324 mg Documented By: BASSAM Thiamine HCl (Thiamine Hcl 100 Mg Tablet) 100 mg PO DAILY [facility] Last Admin: 12/07/21 09:32 Dose: 100 mg Documented By: BASSAM Labs CBC & Chem 7: 11/07/21 12:30 11/07/21 12:38 Assessment and Plan (1) Cognitive impairment: Status: Acute Plan 46-year-old woman with history of substance abuse initially presented to [facility] with confusion and found to have lack of capacity, healthcare proxy was invoked and she was awaiting placement. She was re-evaluated on 11/20/2021 by the psychiatric team, she was found to have improvement in her cognition and was found to have capacity and ability to make medical decisions. She is aware that at this time the case management team is looking for safe placement for a safe disposition for her, unfortunately after long discussion with her family they are unable to assist her in any living arrangements at this time. Patient is aware of the plan and in agreement. essentially no new issues since last encounter Cognitive impairment likely secondary to polysubstance abuse Initially positive for cocaine, fentanyl, marijuana. 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 Re-evaluation, patient now has capacity. Discussed the importance of continuing drug cessation after discharge. E coli UTI Completed course of antibiotics DVT prophylaxis low risk, mechanical compression boots and ambulation Disposition case management formulating a plan for safe discharge, probably SNF anytime soon Quality Stroke Does the patient have a stroke diagnosis?: No VTE Prior VTE?: No VTE Risk Level:: Medical - moderate - high VTE Device Contraindication: Treatment Not Indicated VTE Drug Contraindication: N/A - Med Ordered
[2021-12-07 15:43] VITALS: BP 122/70; PULSE 78; RESP 18; TEMP 36.5; O2SAT 96
[2021-12-07 23:29] VITALS: BP 107/60; PULSE 94; RESP 17; TEMP 36.6; O2SAT 94
[2021-12-08 06:48] VITALS: BP 121/74; PULSE 78; RESP 16; TEMP 36.1; O2SAT 95
[2021-12-08] MEDS: Thiamine HCL 100 MG TABLET PO (08:13)
[2021-12-08] MEDS: Ferrous Sulfate 324 MG TABLET.DR PO (08:13)
--- NOTE | 2021-12-08 11:39 | HO.PM.IMPN ---
Subjective Subjective Date of Service: 12/08/21 Interval History: seen and examined this morning follow up for placement no overnight events no specific complaints, looking forward to leaving hospital soon, has been accepted to Review of Systems no issues Physical Exam Vital Signs: Vital Signs: Last Vital Signs Temp 97 F 12/08/21 06:48 Pulse 78 12/08/21 06:48 Resp 16 12/08/21 06:48 BP 121/74 12/08/21 06:48 Pulse Ox 95 12/08/21 06:48 O2 Del Method 12/08/21 06:48 BMI result Body Mass Index 28.3 Const: Other: ?General sitting comfortably, in no acute distress ?neck no JVD ?lung? clear to auscultation ?heart regular rate rhythm, ?abdomen is soft, nontender ?neuro patient is alert x3 ?extremities no edema Objective Data Active Medications Ferrous Sulfate (Ferrous Sulfate 324 Mg Tablet.) 324 mg PO DAILY [facility] Last Admin: 12/08/21 08:13 Dose: 324 mg Documented By: RONALDO Thiamine HCl (Thiamine Hcl 100 Mg Tablet) 100 mg PO DAILY [facility] Last Admin: 12/08/21 08:13 Dose: 100 mg Documented By: RONALDO Labs CBC & Chem 7: 11/07/21 12:30 11/07/21 12:38 Assessment and Plan (1) Cognitive impairment: Status: Acute Plan 46-year-old woman with history of substance abuse initially presented to [facility] with confusion and found to have lack of capacity, healthcare proxy was invoked and she was awaiting placement. She was re-evaluated on 11/20/2021 by the psychiatric team, she was found to have improvement in her cognition and was found to have capacity and ability to make medical decisions. She is aware that at this time the case management team is looking for safe placement for a safe disposition for her, unfortunately after long discussion with her family they are unable to assist her in any living arrangements at this time. Patient is aware of the plan and in agreement. essentially no new issues since last encounter Cognitive impairment likely secondary to polysubstance abuse Initially positive for cocaine, fentanyl, marijuana. 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 Re-evaluation, patient now has capacity. Discussed the importance of continuing drug cessation after discharge. E coli UTI Completed course of antibiotics DVT prophylaxis low risk, mechanical compression boots and ambulation Disposition case management formulating a plan for safe discharge, probably SNF anytime soon Quality Stroke Does the patient have a stroke diagnosis?: No VTE Prior VTE?: No VTE Risk Level:: Medical - moderate - high VTE Device Contraindication: Treatment Not Indicated VTE Drug Contraindication: N/A - Med Ordered
--- NOTE | 2021-12-08 14:59 | MHC.CM.PN ---
Cm attempted to contact liaison at [facility] multiple times via phone and [employer], cm finally received an email reporting that they are waiting for a denial letter from pt's [employer], cm attempting to contact insurance reviewer at number/extension on file, cm will send message through [employer].
[2021-12-08 15:08] VITALS: BP 126/63; PULSE 88; RESP 18; TEMP 36.8; O2SAT 95
[2021-12-08 23:32] VITALS: BP 98/50; PULSE 87; RESP 16; TEMP 37.1; O2SAT 94
[2021-12-09 07:31] VITALS: BP 115/68; PULSE 83; RESP 18; TEMP 36; O2SAT 96
[2021-12-09] MEDS: Thiamine HCL 100 MG TABLET PO (08:40)
[2021-12-09] MEDS: Ferrous Sulfate 324 MG TABLET.DR PO (08:40)
--- NOTE | 2021-12-09 14:35 | HO.PM.IMPN ---
Subjective Subjective Date of Service: 12/09/21 Interval History: follow up for placement Review of Systems No overnight events Denies any new complaints. Physical Exam Vital Signs: Vital Signs: Last Vital Signs Temp 96.8 F 12/09/21 07:31 Pulse 83 12/09/21 07:31 Resp 18 12/09/21 07:31 BP 115/68 12/09/21 07:31 Pulse Ox 96 12/09/21 07:31 O2 Del Method 12/09/21 07:31 BMI result Body Mass Index 28.3 General sitting comfortably, in no acute distress ?neck no JVD ?lung? clear to auscultation ?heart regular rate rhythm, ?abdomen is soft, nontender ?neuro patient is alert ,oriented ?extremities no edema Objective Data Active Medications Ferrous Sulfate (Ferrous Sulfate 324 Mg Tablet.) 324 mg PO DAILY [facility] Last Admin: 12/09/21 08:40 Dose: 324 mg Documented By: RONALDO Thiamine HCl (Thiamine Hcl 100 Mg Tablet) 100 mg PO DAILY [facility] Last Admin: 12/09/21 08:40 Dose: 100 mg Documented By: RONALDO Labs CBC & Chem 7: 11/07/21 12:30 11/07/21 12:38 Assessment and Plan (1) Cognitive impairment: Status: Acute Plan 46-year-old woman with history of substance abuse initially presented to [facility] with confusion and found to have lack of capacity, healthcare proxy was invoked and she was awaiting placement.? She was re-evaluated on 11/20/2021 by the psychiatric team, she was found to have improvement in her cognition and was found to have capacity and ability to make medical decisions.? She is aware that at this time the case management team is looking for safe placement for a safe disposition for her, unfortunately after long discussion with her family they are unable to assist her in any living arrangements at this time.? Patient is aware of the plan and in agreement. essentially no new issues since last encounter Cognitive impairment likely secondary to polysubstance abuse Initially positive for cocaine, fentanyl, marijuana. 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 Re-evaluation, patient now has capacity. Discussed the importance of continuing drug cessation after discharge. E coli UTI Completed course of antibiotics DVT prophylaxis low risk, mechanical compression boots and ambulation inpatient need;Disposition case management formulating a plan for safe discharge, probably SNF anytime soon Quality Stroke Does the patient have a stroke diagnosis?: No VTE Prior VTE?: No VTE Risk Level:: Medical - moderate - high VTE Device Contraindication: Treatment Not Indicated VTE Drug Contraindication: N/A - Med Ordered
[2021-12-09 15:42] VITALS: BP 131/64; PULSE 90; RESP 18; TEMP 36.3; O2SAT 96
[2021-12-09 23:14] VITALS: BP 107/59; PULSE 83; RESP 18; TEMP 36.1; O2SAT 93
[2021-12-10] MEDS: Thiamine HCL 100 MG TABLET PO (07:14)
[2021-12-10] MEDS: Ferrous Sulfate 324 MG TABLET.DR PO (07:15)
[2021-12-10 07:46] VITALS: BP 113/72; PULSE 81; RESP 18; TEMP 36.8; O2SAT 95
--- NOTE | 2021-12-10 14:42 | HO.PM.IMPN ---
Subjective Subjective Date of Service: 12/10/21 Interval History: follow up for placement Review of Systems No overnight events Denies any new complaints. Physical Exam Vital Signs: Vital Signs: Last Vital Signs Temp 98.2 F 12/10/21 07:46 Pulse 81 12/10/21 07:46 Resp 18 12/10/21 07:46 BP 113/72 12/10/21 07:46 Pulse Ox 95 12/10/21 07:46 O2 Del Method 12/10/21 07:46 BMI result Body Mass Index 28.3 General sitting comfortably, in no acute distress ?neck no JVD ?lung? clear to auscultation ?heart regular rate rhythm, ?abdomen is soft, nontender ?neuro patient is alert? ,oriented ?extremities no edema Objective Data Active Medications Ferrous Sulfate (Ferrous Sulfate 324 Mg Tablet.) 324 mg PO DAILY [facility] Last Admin: 12/10/21 07:15 Dose: 324 mg Documented By: EVERARDO Thiamine HCl (Thiamine Hcl 100 Mg Tablet) 100 mg PO DAILY [facility] Last Admin: 12/10/21 07:14 Dose: 100 mg Documented By: EVERARDO Labs CBC & Chem 7: 11/07/21 12:30 11/07/21 12:38 Assessment and Plan (1) Cognitive impairment: Status: Acute Plan 46-year-old woman with history of substance abuse initially presented to [facility] with confusion and found to have lack of capacity, healthcare proxy was invoked and she was awaiting placement.? She was re-evaluated on 11/20/2021 by the psychiatric team, she was found to have improvement in her cognition and was found to have capacity and ability to make medical decisions.? She is aware that at this time the case management team is looking for safe placement for a safe disposition for her, unfortunately after long discussion with her family they are unable to assist her in any living arrangements at this time.? Patient is aware of the plan and in agreement. essentially no new issues since last encounter Cognitive impairment likely secondary to polysubstance abuse Initially positive for cocaine, fentanyl, marijuana. 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 Re-evaluation, patient now has capacity. Discussed the importance of continuing drug cessation after discharge. E coli UTI Completed course of antibiotics DVT prophylaxis low risk, mechanical compression boots and ambulation inpatient need;Disposition case management formulating a plan for safe discharge, probably SNF anytime soon Quality Stroke Does the patient have a stroke diagnosis?: No VTE Prior VTE?: No VTE Risk Level:: Medical - moderate - high VTE Device Contraindication: Treatment Not Indicated VTE Drug Contraindication: N/A - Med Ordered
[2021-12-10 15:36] VITALS: BP 126/64; PULSE 88; RESP 18; TEMP 36.8; O2SAT 100
[2021-12-11] VITALS: BP 105/55; PULSE 92; RESP 18; TEMP 36.6; O2SAT 95
[2021-12-11 08:00] VITALS: BP 113/60; PULSE 78; RESP 18; TEMP 36.1; O2SAT 98
[2021-12-11] MEDS: Ferrous Sulfate 324 MG TABLET.DR PO (09:41)
[2021-12-11] MEDS: Thiamine HCL 100 MG TABLET PO (09:41)
--- NOTE | 2021-12-11 12:40 | HO.PM.IMPN ---
Subjective Subjective Date of Service: 12/11/21 Interval History: follow up for placement Review of Systems No overnight events Denies any new complaints. Physical Exam Vital Signs: Vital Signs: Last Vital Signs Temp 96.9 F 12/11/21 08:00 Pulse 78 12/11/21 08:00 Resp 18 12/11/21 08:00 BP 113/60 12/11/21 08:00 Pulse Ox 98 12/11/21 08:00 O2 Del Method 12/11/21 08:00 BMI result Body Mass Index 28.3 General sitting comfortably, in no acute distress ?neck no JVD ?lung? clear to auscultation ?heart regular rate rhythm, ?abdomen is soft, nontender ?neuro patient is alert? ,oriented ?extremities no edema Objective Data Active Medications Ferrous Sulfate (Ferrous Sulfate 324 Mg Tablet.) 324 mg PO DAILY [facility] Last Admin: 12/11/21 09:41 Dose: 324 mg Documented By: BASSAM Thiamine HCl (Thiamine Hcl 100 Mg Tablet) 100 mg PO DAILY [facility] Last Admin: 12/11/21 09:41 Dose: 100 mg Documented By: BASSAM Labs CBC & Chem 7: 11/07/21 12:30 11/07/21 12:38 Assessment and Plan (1) Cognitive impairment: Status: Acute Plan 46-year-old woman with history of substance abuse initially presented to [facility] with confusion and found to have lack of capacity, healthcare proxy was invoked and she was awaiting placement.? She was re-evaluated on 11/20/2021 by the psychiatric team, she was found to have improvement in her cognition and was found to have capacity and ability to make medical decisions.? She is aware that at this time the case management team is looking for safe placement for a safe disposition for her, unfortunately after long discussion with her family they are unable to assist her in any living arrangements at this time.? Patient is aware of the plan and in agreement. essentially no new issues since last encounter Cognitive impairment likely secondary to polysubstance abuse Initially positive for cocaine, fentanyl, marijuana. 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 Re-evaluation, patient now has capacity. Discussed the importance of continuing drug cessation after discharge. E coli UTI Completed course of antibiotics DVT prophylaxis low risk, mechanical compression boots and ambulation inpatient need;Disposition case management formulating a plan for safe discharge, probably SNF anytime soon Quality Stroke Does the patient have a stroke diagnosis?: No VTE Prior VTE?: No VTE Risk Level:: Medical - moderate - high VTE Device Contraindication: Treatment Not Indicated VTE Drug Contraindication: N/A - Med Ordered
[2021-12-11 15:48] VITALS: BP 109/68; PULSE 93; RESP 16; TEMP 37.3; O2SAT 93
[2021-12-12] VITALS: BP 102/51; PULSE 92; RESP 17; TEMP 36.4; O2SAT 93
[2021-12-12 08:00] VITALS: BP 115/65; PULSE 83; RESP 18; TEMP 36.7; O2SAT 95
[2021-12-12] MEDS: Ferrous Sulfate 324 MG TABLET.DR PO (08:24)
[2021-12-12] MEDS: Thiamine HCL 100 MG TABLET PO (08:24)
--- NOTE | 2021-12-12 14:19 | MHC.CM.PN ---
Cm reached out to [facility] to liaison Tomy Sotomayor at 1:55pm [phone] to check on status of d/c, Tomy reports they have been attempting to contacting for the last 3 days and also have called [facility] and are awaiting response, pt unable to transfer until prior auth obtained and antic d/c some time next week. Cm will cont to follow d/c needs.
[2021-12-12 15:58] VITALS: BP 135/64; PULSE 88; RESP 16; TEMP 37.1; O2SAT 94
[2021-12-12 23:27] VITALS: BP 107/53; PULSE 94; RESP 16; TEMP 36.8; O2SAT 93
[2021-12-13 07:50] VITALS: BP 120/65; PULSE 86; RESP 18; TEMP 36.1; O2SAT 97
[2021-12-13] MEDS: Thiamine HCL 100 MG TABLET PO (08:12)
[2021-12-13] MEDS: Ferrous Sulfate 324 MG TABLET.DR PO (08:12)
--- NOTE | 2021-12-13 12:31 | HO.PM.IMPN ---
Subjective Subjective Date of Service: 12/13/21 Interval History: follow up for placement Review of Systems No overnight events Denies any new complaints. Physical Exam Vital Signs: Vital Signs: Last Vital Signs Temp 96.9 F 12/13/21 07:50 Pulse 86 12/13/21 07:50 Resp 18 12/13/21 07:50 BP 120/65 12/13/21 07:50 Pulse Ox 97 12/13/21 07:50 O2 Del Method 12/13/21 07:50 BMI result Body Mass Index 28.3 General sitting comfortably, in no acute distress ?neck no JVD ?lung? clear to auscultation ?heart regular rate rhythm, ?abdomen is soft, nontender ?neuro patient is alert? ,oriented ?extremities no edema Objective Data Active Medications Ferrous Sulfate (Ferrous Sulfate 324 Mg Tablet.) 324 mg PO DAILY [facility] Last Admin: 12/13/21 08:12 Dose: 324 mg Documented By: LUI Thiamine HCl (Thiamine Hcl 100 Mg Tablet) 100 mg PO DAILY [facility] Last Admin: 12/13/21 08:12 Dose: 100 mg Documented By: LUI Labs CBC & Chem 7: 11/07/21 12:30 11/07/21 12:38 Assessment and Plan (1) Cognitive impairment: Status: Acute Plan 46-year-old woman with history of substance abuse initially presented to [facility] with confusion and found to have lack of capacity, healthcare proxy was invoked and she was awaiting placement.? She was re-evaluated on 11/20/2021 by the psychiatric team, she was found to have improvement in her cognition and was found to have capacity and ability to make medical decisions.? She is aware that at this time the case management team is looking for safe placement for a safe disposition for her, unfortunately after long discussion with her family they are unable to assist her in any living arrangements at this time.? Patient is aware of the plan and in agreement. essentially no new issues since last encounter Cognitive impairment likely secondary to polysubstance abuse Initially positive for cocaine, fentanyl, marijuana. 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 Re-evaluation, patient now has capacity. Discussed the importance of continuing drug cessation after discharge. E coli UTI Completed course of antibiotics DVT prophylaxis low risk, mechanical compression boots and ambulation inpatient need;Disposition case management formulating a plan for safe discharge, probably SNF anytime soon Quality Stroke Does the patient have a stroke diagnosis?: No VTE Prior VTE?: No VTE Risk Level:: Medical - moderate - high VTE Device Contraindication: Treatment Not Indicated VTE Drug Contraindication: N/A - Med Ordered
[2021-12-13 16:00] VITALS: BP 105/63; PULSE 94; RESP 18; TEMP 36.9; O2SAT 92
[2021-12-13 23:29] VITALS: BP 105/53; PULSE 85; RESP 16; TEMP 36.9; O2SAT 96
[2021-12-14] MEDS: Ferrous Sulfate 324 MG TABLET.DR PO (07:11)
[2021-12-14] MEDS: Thiamine HCL 100 MG TABLET PO (07:11)
[2021-12-14 08:00] VITALS: BP 122/59; PULSE 84; RESP 16; TEMP 36.2; O2SAT 95
--- NOTE | 2021-12-14 13:26 | HO.PM.IMPN ---
Subjective Subjective Date of Service: 12/14/21 Interval History: follow up for placement Review of Systems no new c/o Denies any chest pain or shortness of abdominal pain Physical Exam Vital Signs: Vital Signs: Last Vital Signs Temp 97.2 F 12/14/21 08:00 Pulse 84 12/14/21 08:00 Resp 16 12/14/21 08:00 BP 122/59 L 12/14/21 08:00 Pulse Ox 95 12/14/21 08:00 O2 Del Method 12/14/21 08:00 BMI result Body Mass Index 28.3 ? General sitting comfortably, in no acute distress ?neck no JVD ?lung? clear to auscultation ?heart regular rate rhythm, ?abdomen is soft, nontender ?neuro patient is alert? ,oriented ?extremities no edema Objective Data Active Medications Ferrous Sulfate (Ferrous Sulfate 324 Mg Tablet.) 324 mg PO DAILY [facility] Last Admin: 12/14/21 07:11 Dose: 324 mg Documented By: LUI Thiamine HCl (Thiamine Hcl 100 Mg Tablet) 100 mg PO DAILY [facility] Last Admin: 12/14/21 07:11 Dose: 100 mg Documented By: LUI Labs CBC & Chem 7: 11/07/21 12:30 11/07/21 12:38 Assessment and Plan (1) Cognitive impairment: Status: Acute Plan 46-year-old woman with history of substance abuse initially presented to [facility] with confusion and found to have lack of capacity, healthcare proxy was invoked and she was awaiting placement.? She was re-evaluated on 11/20/2021 by the psychiatric team, she was found to have improvement in her cognition and was found to have capacity and ability to make medical decisions.? She is aware that at this time the case management team is looking for safe placement for a safe disposition for her, unfortunately after long discussion with her family they are unable to assist her in any living arrangements at this time.? Patient is aware of the plan and in agreement. essentially no new issues since last encounter Cognitive impairment likely secondary to polysubstance abuse Initially positive for cocaine, fentanyl, marijuana. 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 Re-evaluation, patient now has capacity. Discussed the importance of continuing drug cessation after discharge. E coli UTI Completed course of antibiotics DVT prophylaxis low risk, mechanical compression boots and ambulation inpatient need;Disposition case management formulating a plan for safe discharge, probably SNF anytime soon Quality Stroke Does the patient have a stroke diagnosis?: No VTE Prior VTE?: No VTE Risk Level:: Medical - moderate - high VTE Device Contraindication: Treatment Not Indicated VTE Drug Contraindication: N/A - Med Ordered
[2021-12-14 16:00] VITALS: BP 111/61; PULSE 77; RESP 18; TEMP 37; O2SAT 98
[2021-12-14 23:31] VITALS: BP 122/55; PULSE 99; RESP 18; TEMP 36.6; O2SAT 96
[2021-12-15 08:00] VITALS: BP 130/76; PULSE 78; RESP 16; TEMP 36.7; O2SAT 95
[2021-12-15] MEDS: Thiamine HCL 100 MG TABLET PO (08:33)
[2021-12-15] MEDS: Ferrous Sulfate 324 MG TABLET.DR PO (08:33)
--- NOTE | 2021-12-15 12:24 | P.PNIM_ITS ---
Subjective Subjective Date of Service: 12/15/21 Interval History: follow up for placement Review of Systems no new c/o Denies any chest pain or shortness of abdominal pain Physical Exam Vital Signs: Vital Signs: Last Vital Signs Temp 98.1 F 12/15/21 08:00 Pulse 78 12/15/21 08:00 Resp 16 12/15/21 08:00 BP 130/76 12/15/21 08:00 Pulse Ox 95 12/15/21 08:00 O2 Del Method 12/15/21 08:00 BMI result Body Mass Index 28.3 General sitting comfortably, in no acute distress ?neck no JVD ?lung? clear to auscultation ?heart regular rate rhythm, ?abdomen is soft, nontender ?neuro patient is alert? ,oriented ?extremities no edema Objective Data Active Medications Ferrous Sulfate (Ferrous Sulfate 324 Mg Tablet.) 324 mg PO DAILY [facility] Last Admin: 12/15/21 08:33 Dose: 324 mg Documented By: RONALDO Thiamine HCl (Thiamine Hcl 100 Mg Tablet) 100 mg PO DAILY [facility] Last Admin: 12/15/21 08:33 Dose: 100 mg Documented By: RONALDO Labs CBC & Chem 7: 11/07/21 12:30 11/07/21 12:38 Assessment and Plan (1) Cognitive impairment: Status: Acute Plan 46-year-old woman with history of substance abuse initially presented to [facility] with confusion and found to have lack of capacity, healthcare proxy was invoked and she was awaiting placement.? She was re-evaluated on 11/20/2021 by the psychiatric team, she was found to have improvement in her cognition and was found to have capacity and ability to make medical decisions.? She is aware that at this time the case management team is looking for safe placement for a safe disposition for her, unfortunately after long discussion with her family they are unable to assist her in any living arrangements at this time.? Patient is aware of the plan and in agreement. essentially no new issues since last encounter Cognitive impairment likely secondary to polysubstance abuse Initially positive for cocaine, fentanyl, marijuana. Seen and evaluated by Neurology, no witnessed seizure events, head CT showed signs exposure to certain chemicals such as cocaine, appears like TBI symptoms Seen and evaluated by speech therapy and initially found to have cognitive zane guistic impairment - initially deemed incompetent to make medical decisions.? Re-evaluation, patient now has capacity. Discussed the importance of continuing drug cessation after discharge. E coli UTI Completed course of antibiotics DVT prophylaxis low risk, mechanical compression boots and ambulation inpatient need;Disposition case management formulating a plan for safe discharge, probably SNF anytime soon Quality Stroke Does the patient have a stroke diagnosis?: No VTE Prior VTE?: No VTE Risk Level:: Medical - moderate - high VTE Device Contraindication: Treatment Not Indicated VTE Drug Contraindication: N/A - Med Ordered
[2021-12-15 16:00] VITALS: BP 109/67; PULSE 89; RESP 16; TEMP 36.4; O2SAT 95
[2021-12-16] VITALS: BP 100/55; PULSE 90; RESP 17; TEMP 36.2; O2SAT 95
[2021-12-16 08:00] VITALS: BP 116/70; PULSE 74; RESP 18; TEMP 36.3; O2SAT 97
[2021-12-16] MEDS: Ferrous Sulfate 324 MG TABLET.DR PO (09:21)
[2021-12-16] MEDS: Thiamine HCL 100 MG TABLET PO (09:21)
[2021-12-16 15:27] VITALS: BP 121/62; PULSE 93; RESP 17; TEMP 36.9; O2SAT 94
[2021-12-17] VITALS: BP 112/62; PULSE 80; RESP 18; TEMP 36.7; O2SAT 97
[2021-12-17 08:00] VITALS: BP 135/90; PULSE 87; RESP 18; TEMP 36.3; O2SAT 99
[2021-12-17] MEDS: Ferrous Sulfate 324 MG TABLET.DR PO (09:00)
[2021-12-17] MEDS: Thiamine HCL 100 MG TABLET PO (09:00)
--- NOTE | 2021-12-17 12:12 | HO.PM.IMPN ---
Subjective Subjective Date of Service: 12/17/21 Interval History: seen and examined this morning follow up for placement no overnight events no specific complaints, looking forward to leaving hospital soon, has been accepted at [facility] pending some insurance issues Review of Systems no issues Physical Exam Vital Signs: Vital Signs: Last Vital Signs Temp 97.4 F 12/17/21 08:00 Pulse 87 12/17/21 08:00 Resp 18 12/17/21 08:00 BP 135/90 H 12/17/21 08:00 Pulse Ox 99 12/17/21 08:00 O2 Del Method 12/17/21 08:00 BMI result Body Mass Index 28.3 Const: Other: ?General sitting comfortably, in no acute distress ?neck no JVD ?lung? clear to auscultation ?heart regular rate rhythm, ?abdomen is soft, nontender ?neuro patient is alert x3 ?extremities no edema Objective Data Active Medications Ferrous Sulfate (Ferrous Sulfate 324 Mg Tablet.) 324 mg PO DAILY [facility] Last Admin: 12/17/21 09:00 Dose: 324 mg Documented By: ERICA Thiamine HCl (Thiamine Hcl 100 Mg Tablet) 100 mg PO DAILY [facility] Last Admin: 12/17/21 09:00 Dose: 100 mg Documented By: ERICA Labs CBC & Chem 7: 11/07/21 12:30 11/07/21 12:38 Assessment and Plan (1) Cognitive impairment: Status: Acute Plan 46-year-old woman with history of substance abuse initially presented to [facility] with confusion and found to have lack of capacity, healthcare proxy was invoked and she was awaiting placement. She was re-evaluated on 11/20/2021 by the psychiatric team, she was found to have improvement in her cognition and was found to have capacity and ability to make medical decisions. She is aware that at this time the case management team is looking for safe placement for a safe disposition for her, unfortunately after long discussion with her family they are unable to assist her in any living arrangements at this time. Patient is aware of the plan and in agreement. essentially no new issues since last encounter Cognitive impairment likely secondary to polysubstance abuse Initially positive for cocaine, fentanyl, marijuana. 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 Re-evaluation, patient now has capacity. Discussed the importance of continuing drug cessation after discharge. E coli UTI Completed course of antibiotics DVT prophylaxis low risk, mechanical compression boots and ambulation Disposition case management formulating a plan for safe discharge, probably SNF anytime soon Quality Stroke Does the patient have a stroke diagnosis?: No VTE Prior VTE?: No VTE Risk Level:: Medical - moderate - high VTE Device Contraindication: Treatment Not Indicated VTE Drug Contraindication: N/A - Med Ordered
--- NOTE | 2021-12-17 13:14 | MHC.CM.PN ---
Addendum entered by Laura Frank RN 12/17/21 13:32: CM ATTEMPTEED TO CONTACT PT'S MOTHER/HCP ASHLEY AT 1:30PM AT NUMBER ON FILE, NO ANSWER AND MESSAGE LEFT W/PT PLAN FOR D/C TOMORROW. CM CONTACT NUMBER ALSO LEFT ON MESSAGE. Original Note: CM CONTACTED WHITNEY RUIZ AT 1:02PM [phone], WHITNEY REPORTS HE IS JUST AWAITING UPDATED 7DAY PRE-AUTH WHICH HE SHOULD HAVE MOMENTARILY, WHITNEY REPORTS THEY WOULD LIKE TO ADMIT PT TOMORROW AND PT WILL JUST NEED RAPID COVID TOMORROW MORNING 12/18/21. HOSPITALIST UPDATED AND CM WILL LET PT'S MOTHER ASHLEY KNOW PER PT REQUEST.
--- NOTE | 2021-12-17 14:44 | MHC.CM.PN ---
PER [facility] REQUEST TRANSPORT BOOKED FOR 12:30PM THEY WOULD LIKE PT ADMITTED AT 1PM, HOSPITALIST AWARE.
[2021-12-17 15:39] VITALS: BP 134/73; PULSE 100; RESP 17; TEMP 36.4; O2SAT 100
--- NOTE | 2021-12-17 15:59 | PM.DS ---
DS: Providers Provider Date of Service: 12/18/21 Date of admission: 07/11/21 03:28 Primary care physician: [facility] Consults: 07/11/21 07:10 Consult to Neurology Routine Consulting Provider: [facility] Reason for consultation: Abnormal head ct Has provider been notified: No 07/11/21 12:14 Consult to Psychiatry Routine Consulting Provider: Ara Sams Reason for consultation: multiple drug use Has provider been notified: No 07/17/21 17:16 Consult to Psychiatry Routine Consulting Provider: [facility] Reason for consultation: competency eval Has provider been notified: No 08/12/21 10:18 Consult to Psychiatry Routine Consulting Provider: [facility] Reason for consultation: Evaluate for capacity please, presumed has no capacity earlier on admissi 11/20/21 08:32 Consult to Psychiatry Routine Consulting Provider: [facility] Reason for consultation: clinically improving; re-assess capacity Has provider been notified: No DS: Diagnosis Discharge Diagnosis (1) Cognitive impairment: Status: Acute DS: Summary Hospital Course Hospital Course: Admission HPI from 07/21/21 Chief Complaint: Confusion This is a 46-year-old female with past medical history of polysubstance abuse who presents to the hospital with episode of confusion.? Patient is oriented to self and time now but reports that she transient episode of confusion where she called the police because she called 911 because she could not unlock her phone.? Police arrived at the scene and patient was confused therefore they brought her to the hospital.? Patient urine is positive for fentanyl, marijuana, as well as cocaine, patient denies using any illicit substances.? Patient was recently seen in the ED for the same exact presentation, found to have a UTI, prescribed Bactrim but did not get the script or get the medication.? Patient reports that she does not remember ever coming to the hospital being treated for UTI. Patient otherwise denies any headache, no change in vision, no abdominal pain nausea or vomiting, no chest pain, no shortness of breath, no urinary symptoms and no lower extremity edema. On arrival to the ED patient hemodynamically stable with no significant abnormal vitals Labs are significant for WBC of 6.5, hemoglobin of 9.3 which is around her baseline, potassium of 4.0, UA positive for nitrites, leukocyte Estrace, WBC, UDS is positive for fentanyl, cocaine and marijuana Head CT shows symmetric region of hypoattenuation in the globus pallidus which appears slightly more prominent than on 07/06, this appearance can be seen with carbon monoxide poisoning and may be further evaluated with MRI Chest x-ray shows no acute cardiopulmonary findings Hospital course: The patient was admitted for an apparent drug-induced encephalopathy, as was evident on imaging, including MRI; she was markedly confused with no insight whatsoever, was barely oriented to herself, and other than that, had no idea about what was going on. Her evaluation included that of Neurology Dr. Oscar, who reviewed the initial CT of the head (see report below) that suggested possible carbon monoxide poisoning, but the finding on MRI (see report below) was more suggestive of the drug (likely cocaine) induced pathology and ensuing encephalopathy. She was initially assessed by Psychiatry and deemed not to have the capacity to make sound medical decisions. She was seen by Speech and Language Pathology, and Patient was administered the Cognitive Linguistic Quick Test (CLQT) at the bedside. Based on her performance on this assessment measure, the patient presents with a moderate cognitive-linguistic impairment, characterized by significant impairments in short-term memory, executive functions, and generative naming; mild impairments in attention and visuospatial skills. Recommend continuing speech therapy at the next level of care for concerns surrounding cognition. She was seen by PT and had no deficit of any kind. Over the course of her lengthy stay without any significant medical complications, she has continued to make significant progress in terms of her cognitive abilities and has been independent with her ADLs. She had ongoing continuing Psychiatric reevaluations with the following remarks on during her last assessment on 11/20/21 I spoke with pt?s RN; she went outside today and has been independent in ADLs. Pt does require prompting from RN to do basic things like showering and leaving her room for walks/ fresh air breaks; however, she is cooperative and very directable. I spoke with pt this evening, and she is able to tell me the circumstances of her hospitalization, i.e. knows she overdosed, still doesn't know what she took but will likely never recall this. Pt is oriented to the month, day, year, and season; however, does not know the date (says it is the 29 of November). She knows her location. Knows who the president is. 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 Pt says she wants to discharge home to family care, as she was living alone in an apartment but has now lost that apartment. Per the report, pt has burned bridges, but she identifies her supports as her bio parents. When asked about her kids, pt says she has 3 sons and 2 daughters and the oldest is age 24/ 25, youngest is age seven and is currently in the care of her mom (I corrected pt that she has 4 sons and she agrees this is accurate). I performed some parts of the Folstein mini-mental status exam. Pt is unable to perform the serial 7s but is able to spell WORLD backward. She is able to repeat three words but cannot recall them when asked later. Says her sleep is good, ?surprisingly I do sleep good,? energy is okay. Denies psychiatric sx. Pt is accepting of treatment interventions and is currently medically cleared, awaiting placement. When asked if she was granted capacity, would she leave AMA without safe housing secured and she said no, she would wait, which shows good judgment? Although Vannessa has made tremendous progress from her initial presentation and her present condition, she will continue to need community/social support to one day, hopefully in the near future, become to live independent again; she is rather motivated to do this. We have discussed the dangers of illicit substances (cocaine, heroin, fentanyl, amphetamines, ketamine, and many others) and have also been evaluated by the recovery team . In that spirit, Vannessa is agreeable to transition to SNF ([facility]) where they will continue to work with her, and perhaps a nursing home is the next step as, at this point, her parents or adult children are not able to take her under their custody. Her lenghty hospitalization was all related to not having a safe placement until now. Time Spent with Patient Time attestation: Total time spent providing and/or coordinating discharge services: Discharge coordination time: Greater than 30 minutes Quality: Safe Use of Opioids Does Pt have an Active Cancer Diagnosis on the Problem List?: No Quality: Stroke Does the patient have a stroke diagnosis?: No Physical Exam Vital Signs: Vital Signs: Last Vital Signs Temp 97.5 F 12/17/21 15:39 Pulse 100 12/17/21 15:39 Resp 17 12/17/21 15:39 BP 134/73 12/17/21 15:39 Pulse Ox 100 12/17/21 15:39 O2 Del Method 12/17/21 15:39 BMI result Body Mass Index 28.3 Const: Other: Constitutional: Alert, in no distress, overweight. Mental Status: Oriented to person, place and time and circumstances surounding hospitalization Eyes: Pupils are equal, round and reactive to light. Ear, Nose and Throat: Oropharynx clear, mucous membranes moist. Ears and nose without deformities. Trachea midline. Respiratory: Clear to auscultation. No wheezing, rales or rhonchi. Cardiovascular: S1 S2 regular. No murmurs, rubs or gallops. Gastrointestinal: Abdomen soft, non-tender, non-distended. Normal bowel sounds.? Neurologic: Cranial nerves II-XII grossly intact. No focal neurological deficits. Moves all extremities spontaneously.? Skin: No rashes or lesions.? Musculoskeletal: No cyanosis or clubbing. Psychiatric: Normal mood and affect, no SI no SI, no AH/VH DS: Data Imaging MRI - head: Radiologist's impression: ITS Impressions Head CT 07/11/21 02:42 IMPRESSION: Symmetric regions of of hypoattenuation in the globus pallidus, which appears slightly more prominent than on 07/06/2021. This appearance can be seen with carbon monoxide poisoning and may be further evaluated with MRI. This was discussed with Dr. Jaeger on 07/11/2021 3:22 AM. Chest X-Ray 07/11/21 02:45 IMPRESSION: No acute cardiopulmonary findings. Abdomen X-Ray 07/11/21 20:25 IMPRESSION: 1. No radiopaque foreign body. The patient is cleared for MRI. 2. Left renal upper pole 19 mm calculus, as on CT of 03/26/2017. Brain MRI 07/11/21 21:35 IMPRESSION: Expansile T2 signal changes involving the globus pallidus bilaterally associated with intermediate reduced diffusivity. There is also restricted diffusion within the hippocampi bilaterally and involving portions of the right and left caudate nucleus as well as bandlike T2 signal changes involving the cerebellar white matter bilaterally. Findings could be toxic/metabolic in etiology and should be correlated for any recent drug exposures, particularly fentanyl/opioid exposure given bilateral hippocampal involvement. Carbon monoxide toxicity can present with a subset of these findings. Infectious etiologies should be considered in the appropriate clinical context. Short-term follow-up inclusive of post contrast imaging would be helpful in further assessment. Chest X-Ray 12/03/21 13:30 IMPRESSION: Unremarkable examination. Discharge Plan Discharge Anticipated Discharge Date/Time: 12/18/21 08:01 Patient Disposition: Xfer SNF Discharge Diagnosis: Toxic metabolic encephalopathy, anoxic brain injury Referrals: [facility] [Outside] - 1 Day Physician,Unknown J [Physician] - 1 Week Discharge Medications: New ferrous sulfate 324 mg (65 mg iron) Tablet,Delayed Release (Dr/Ec) 324 mg PO DAILY Qty: 30 0RF Adult Multivitamin Gummies 200 mcg tablet,chewable 1 tab PO DAILY Qty: 30 0RF Discontinued nitrofurantoin monohyd/m-cryst [Macrobid] 100 mg capsule 100 mg PO Q12H 5 Days Qty: 10 0RF Rx Instructions: must administer with a meal/food Discharge Orders: Discharge Order (Routine); Ordered 12/18/21 Ordered By: Jimbo Chino Diet: Advance to usual diet Activity on Discharge: As tolerated Stand Alone Forms: Patient Portal Discharge page Care Plan Goals: Continue improvement with activitites of daily living, memory and ultimately being able to live independently Health Concerns: history of substance abuse Toxic metabolic brain injury Plan of Treatment: To SNF Assessment: as above Discharge Date/Time: 12/18/21 12:33
[2021-12-18] VITALS: BP 97/55; PULSE 86; RESP 17; TEMP 36.6; O2SAT 93
[2021-12-18 07:57] VITALS: BP 133/79; PULSE 84; RESP 16; TEMP 36.1; O2SAT 95
[2021-12-18] MEDS: Thiamine HCL 100 MG TABLET PO (08:17)
[2021-12-18] MEDS: Ferrous Sulfate 324 MG TABLET.DR PO (08:17)
[2021-12-18 09:10] LABS: COVID-19 Test Negative (Negative)
--- NOTE | 2021-12-18 09:28 | MHC.CM.PN ---
PT DISCHARGING TO [facility] AT 12:30PM [facility]IA [facility], CM SPOKE W/PT'S HCP'S AND PARENTS JOHNATHAN AND RUTH AND BOTH ARE AGREEABLE TO PLAN, ASHLEY REPORTS SHE HAS ALREADY STOPPED AT [facility] TO SIGN ADMISSION PAPERWORK AND HELPED PT PACK LAST EVENING. RAPID COVID/ D/C SUMMARY FAXED TO [facility]IA [facility].
--- NOTE | 2021-12-18 10:48 | PC.NURSE ---
report given to Azucena at [facility] [place], patient agrees with plan to discharge.
== END 2021-12-18 12:33 | disposition skilled nursing facility (03) | DRG 917 ==
LOC: HO.ED 03:40 → HO.EDOVER 03:42 → HO.S3 13:30
PROVIDERS: Emergency Medicine Emergency Medical Services; Internal Medicine; Nurse Practitioner Acute Care; Physician Assistant Medical; Admitting Provider Internal Medicine; Emergency Provider Internal Medicine; Visit Provider Internal Medicine
DX: T40.5X1A Poisoning by cocaine, accidental (unintentional), initial encounter (principal); G92.8 Other toxic encephalopathy; N39.0 Urinary tract infection, site not specified; F17.210 Nicotine dependence, cigarettes, uncomplicated; B96.20 Unspecified Escherichia coli [E. coli] as the cause of diseases classified elsewhere; E87.6 Hypokalemia; E87.5 Hyperkalemia; F19.188 Other psychoactive substance abuse with other psychoactive substance-induced disorder; D50.9 Iron deficiency anemia, unspecified; Z91.14 Patient's other noncompliance with medication regimen; Z20.822 Contact with and (suspected) exposure to COVID-19; Z71.6 Tobacco abuse counseling; Z88.0 Allergy status to penicillin; Z88.5 Allergy status to narcotic agent; Z75.1 Person awaiting admission to adequate facility elsewhere
CPT/HCPCS: 36415; 70450; 70551; 71045; 71046; 74018; 80048; 80053; 80076; 80307; 81001; 81025; 82077; 82607; 82746; 82947; 83540; 83605; 83690; 83735; 84484; 85025; 85027; 87040; 87086; 87502; 87635; 92507; 93005; 94640; 96125; 96361; 96374; 96375; 97161; 97165; 97530; 97535; 99218; 99285; J0456; J0696; J1650

== ENCOUNTER → 2022-09-22 08:45 | Outpatient (BNV) | payer MEDICAID, SELFPAY | PROVIDERS: PCP Hospitalist; Visit Provider Radiology Diagnostic Radiology | DX: Z12.31 Encounter for screening mammogram for malignant neoplasm of breast (principal) | CPT/HCPCS: 77063; 77067 ==

== ENCOUNTER 2022-09-22 08:50 | Outpatient (REF) | payer MEDICAID, SELFPAY ==
--- NOTE | ~2022-09-22 | MM_ITS ---
EXAMINATION: MM SCREENING DIGITAL BREAST TOMOSYNTHESIS, BILATERAL CLINICAL INFORMATION: Screening. Asymptomatic. The lifetime risk of breast cancer based on the Tyrer-Cuzick Model is 7.1%. COMPARISON: Mammography: This is a baseline study. TECHNIQUE: Digital breast tomosynthesis is performed in both the craniocaudal and mediolateral oblique views along with computer-aided detection (CAD). Synthesized 2D images are generated from the tomosynthesis. FINDINGS: There are scattered areas of fibroglandular density (ACR BI-RADS breast composition Category b). There are no significant masses, abnormal calcifications, or other abnormalities. MM/MM tomosynthesis screening BI IMPRESSION: No mammographic evidence of malignancy. ASSESSMENT: BI-RADS BI-RADS 1 - Negative RECOMMENDATION: Routine annual mammography screening. 1 year F/U This examination should not preclude the clinical evaluation of a suspicious palpable abnormality. This patient's information was entered into a reminder system with a target due date for their next mammogram.
== END 2022-09-22 08:51 | disposition home or self-care (01) ==
LOC: HO.MAMMO 08:50
PROVIDERS: PCP Hospitalist; Visit Provider Hospitalist
DX: Z12.31 Encounter for screening mammogram for malignant neoplasm of breast (principal)
CPT/HCPCS: 77063; 77067